=== PATIENT | female | born 1945 | race Caucasian/White ===

== ENCOUNTER 2016-03-12 14:35 | Inpatient (IN) | payer OTHER, MEDICAID, MEDICARE ==
[2016-03-12] VITALS (10 sets, daily range): BP systolic 117–174; BP diastolic 48–91; PULSE 78–88; RESP 20–28; TEMP 96.3–99.7; O2SAT 91–93
[~2016-03-12] VITALS: Ht 160 cm; Wt 71.3 kg
[~2016-03-12 14:35] MED LIST: ALBU8I INH; AMLO10 PO; COMBAER INH; DOXY100T PO; FLUO20TA20 PO; ISOS30 PO; LEVA500T PO; LIPI20TA PO; METO50 PO; NITR0.4S SL; PLAV75TA PO; ST J81CH PO; TEMA15CA PO; XANA0.5T PO
[2016-03-12] MEDS ORDERED: MULT-116 PO (14:58)
[2016-03-12] MEDS ORDERED: AMLO5TAB2 PO (14:58)
[2016-03-12] MEDS ORDERED: ALPR0.5T3 PO (14:58)
[2016-03-12] MEDS ORDERED: OMEP20TA PO (14:58)
[2016-03-12] MEDS ORDERED: CLOP75TA PO (14:58)
[2016-03-12] MEDS ORDERED: VITA500T49 PO (14:58)
[2016-03-12] MEDS ORDERED: ISOS30TA3 PO (14:58)
[2016-03-12] MEDS ORDERED: ATOR1TAB18 PO (14:58)
[2016-03-12] MEDS ORDERED: METO50TA PO (14:58)
[2016-03-12] MEDS ORDERED: methylPREDNISolone SOD SUCC 125 MG/2 ML VIAL IVP ONE (15:15)
[2016-03-12] MEDS ORDERED: SODIUM CHLORIDE 0.9% FLUSH 5 ML FLUSH IVF PRN (15:15)
[2016-03-12] MEDS: RESP: ALBUTEROL 2.5 MG/IPRATROPIUM 0.5 MG NEB (SCH) INH ×2 (15:21→15:22)
--- NOTE | 2016-03-12 15:36 | PD ---
HPI Chief Complaint: Respiratory Symptoms Time Seen by Provider: 14:55 Travel History International Travel<30 days: No Contact w/Intl Traveler<30days: No Traveled to known affect area: No History of Present Illness HPI 70-year-old female complains of shortness of breath. Patient states that she started having shortness of breath for the past month and a half. Patient states that the shortness of breath is worse today. Patient states that she started having coughing congestion with productive cough for the past few days. Patient states that she had fever at home to 100.6. Patient states that she had chest wall pain with coughing. Patient complains of dyspnea on exertion. Patient has history of COPD. Patient is a smoker. Patient has been using nebulizer treatment at home 4 times a day. Patient denies any abdominal pain. Patient denies any nausea vomiting diarrhea. PFSH Past Medical History Hx Anticoagulant Therapy: Yes (Plavix) Arthritis: Yes Asthma: No Blood Disorders: No Anxiety: Yes Depression: No Heart Rhythm Problems: No Cancer: No Cardiac Catheterization: Yes Cardiovascular Problems: Yes ([place] ) High Cholesterol: Yes Chemotherapy: No Chest Pain: Yes Congestive Heart Failure: Yes COPD: Yes Cerebrovascular Accident: No Coronary Artery Disease: Yes Developmental Delay: No Diabetes: No Diminished Hearing: Yes ([place] both ears) Endocrine: No Gastrointestinal Disorders: Yes (LAP BAND) GERD: Yes Genitourinary: No Headaches: No Hepatitis: No Hiatal Hernia: No Hypertension: Yes Immune Disorder: No Implanted Vascular Access Dvce: Yes Kidney Stones: No Musculoskeletal: Yes Neurologic: No Psychiatric: Yes Reproductive: No Respiratory: Yes (COPD) Immunizations Current: Yes Migraines: Yes Myocardial Infarction: Yes ( 2005) Renal Failure: No Seizures: No Sleep Apnea: No Thyroid Disease: No Triglycerides - High: Yes Ulcer: No PNEUMOCCOCAL Vaccine (Year): 3 Menopausal: Yes Past Surgical History Abdominal Surgery: Yes (LAP BAND) AICD: No Appendectomy: Yes Arteriovenous Shunt: No Body Medical Devices: PORT FOR LAP BAND FILLS Cardiac Surgery: Yes (STENTS X 11,) Cholecystectomy: No Coronary Artery Bypass Graft: Yes Coronary Stent: Yes (11 STENTS) Ear Surgery: No Endocrine Surgery: No Eye Surgery: No Genitourinary Surgery: Yes (BLADDER SUSPENSION) Gynecologic Surgery: Yes (HYSTERECTOMY. LUMPECTOMY, ) Hysterectomy: No Insulin Pump: No Joint Replacement: No Neurologic Surgery: No Oral Surgery: No Pacemaker: No Thoracic Surgery: No Other Surgery: Yes (LEFT BREAST LUMPECTOMY) Family History Family Myocardial Infarction: Yes Social History Alcohol Use: No Tobacco Use: Yes (02/27 PPD) Substance Use: No Allergies-Medications (Allergen,Severity, Reaction): Coded Allergies: Lisinopril (Verified Allergy, Severe, Cough, 03/12/16) PERSISTENT COUGH Codeine (Verified Allergy, Mild, NAUSEA, 03/12/16) PATIENT STATES SHE IS NOT ALLERGIC TO MEDICATION Cephalexin (Verified Allergy, Unknown, Nausea/Vomiting, 03/12/16) Flovent (Verified Allergy, Unknown, 03/12/16) THROAT SWELLING Reported Meds & Prescriptions Reported Meds & Active Scripts Active Reported Alprazolam 0.5 Mg Tab 0.5 Mg PO TID PRN Atorvastatin (Atorvastatin Calcium) 80 Mg Tab 80 Mg PO HS Metoprolol Tartrate 50 Mg Tab 50 Mg PO BID Vitamin B12 (Cyanocobalamin) 500 Mcg Tab 1,000 Mcg PO DAILY Amlodipine (Amlodipine Besylate) 5 Mg Tab 5 Mg PO BID Omeprazole 20 Mg Tab 20 Mg PO BID Isosorbide Mononitrate ER (Isosorbide Mononitrate) 30 Mg Liza 30 Mg PO DAILY Eamon Mag Zinc + D3 (Multiple Vitamins W/ Minerals) 1 Tab 1 Tab PO DAILY Clopidogrel (Clopidogrel Bisulfate) 75 Mg Tab 75 Mg PO DAILY Review of Systems General / Constitutional: No: Fever Eyes: No: Visual changes HENT: No: Headaches Cardiovascular: No: Chest Pain or Discomfort Respiratory: Positive: Cough, Shortness of Breath, Wheezing Gastrointestinal: No: Abdominal Pain Genitourinary: No: Dysuria Musculoskeletal: No: Pain Skin: No Rash Neurologic: No: Weakness Psychiatric: No: Depression Endocrine: No: Polydipsia Hematologic/Lymphatic: No: Easy Bruising Physical Exam Narrative GENERAL: Well-nourished, well-developed patient. SKIN: Warm and dry. HEAD: Normocephalic. EYES: No scleral icterus. No injection or drainage. NECK: Supple, trachea midline. No JVD or lymphadenopathy. CARDIOVASCULAR: Regular rate and rhythm without murmurs, gallops, or rubs. RESPIRATORY: Breath sounds equal bilaterally. No accessory muscle use. Patient has decrease in breath sounds bilaterally. Mild expiratory wheezes. Few rhonchi at the bases. GASTROINTESTINAL: Abdomen soft, non-tender, nondistended. MUSCULOSKELETAL: No cyanosis, or edema. BACK: Nontender without obvious deformity. No CVA tenderness. Neurologic exam normal. Data Data Last Documented VS Vital Signs Date Time Temp Pulse Resp B/P Pulse Ox O2 Delivery O2 Flow Rate FiO2 03/12/16 15:41 78 20 117/48 93 03/12/16 15:25 21 03/12/16 14:45 99.7 Orders Complete Blood Count With Diff (03/12/16 15:02) Basic Metabolic Panel (Bmp) (03/12/16 15:02) B-Type Natriuretic Peptide (03/12/16 15:02) Iv Access Insert/Monitor (03/12/16 15:02) Ecg Monitoring (03/12/16 15:02) Oximetry (03/12/16 15:02) Chest, Single Ap (03/12/16 15:02) Sodium Chloride 0.9% Flush (Ns Flush) (03/12/16 15:15) Methylprednisolone So Succ Inj (Solumedr (03/12/16 15:15) Albuterol-Ipratropium Neb (Duoneb Neb) (03/12/16 15:15) Labs Laboratory Tests Test 03/12/16 15:15 White Blood Count 12.7 TH/MM3 Red Blood Count 4.40 MIL/MM3 Hemoglobin 13.7 GM/DL Hematocrit 38.9 % Mean Corpuscular Volume 88.4 FL Mean Corpuscular Hemoglobin 31.1 PG Mean Corpuscular Hemoglobin 35.3 % Concent Red Cell Distribution Width 13.1 % Platelet Count 210 TH/MM3 Mean Platelet Volume 8.6 FL Neutrophils (%) (Auto) 77.3 % Lymphocytes (%) (Auto) 15.3 % Monocytes (%) (Auto) 4.9 % Eosinophils (%) (Auto) 0.8 % Basophils (%) (Auto) 1.7 % Neutrophils # (Auto) 9.9 TH/MM3 Lymphocytes # (Auto) 1.9 TH/MM3 Monocytes # (Auto) 0.6 TH/MM3 Eosinophils # (Auto) 0.1 TH/MM3 Basophils # (Auto) 0.2 TH/MM3 CBC Comment DIFF FINAL Differential Comment Sodium Level 140 MEQ/L Potassium Level 3.9 MEQ/L Chloride Level 104 MEQ/L Carbon Dioxide Level 28.5 MEQ/L Anion Gap 8 MEQ/L Blood Urea Nitrogen 13 MG/DL Creatinine 0.83 MG/DL Estimat Glomerular Filtration 68 ML/MIN Rate Random Glucose 100 MG/DL Calcium Level 8.7 MG/DL [facility] Medical Decision Making Medical Screen Exam Complete: Yes Emergency Medical Condition: Yes Interpretation(s) 1549 PM. X-ray shows early consolidation right base. CBC with WBC 12.7. 77 neutrophil. BMP within normal limit. Differential Diagnosis Differential diagnosis including acute exacerbation COPD, bronchitis, pneumonia , PE, pneumothorax. Narrative Course 70-year-old female with fever, coughing congestion wheezing and shortness of breath. History of COPD. Albuterol with Atrovent unit dose treatment 3. Solu -Medrol 125 mg IV. Levaquin 750 mg IV. Diagnosis Primary Impression: Pneumonia Qualified Code: J18.1 - Pneumonia of right lower lobe due to infectious organism Additional Impression: COPD with acute exacerbation Milo Welsh MD Mar 12, 2016 15:36
[2016-03-12 15:38] LABS: AUTOMATED NEUTROPHIL # 9.9 TH/MM3 (1.8-7.7); BASOPHIL # 0.2 TH/MM3 (0-0.2); BASOPHIL % 1.7 % (0.0-2.0); EOSINOPHIL # 0.1 TH/MM3 (0-0.4); EOSINOPHIL % 0.8 % (0.0-4.0); HEMATOCRIT 38.9 % (35.0-46.0); HEMO FLAGS DIFF FINAL; LYMPH % 15.3 % (9.0-44.0); LYMPHOCYTE # 1.9 TH/MM3 (1.0-4.8); MEAN CELL VOLUME 88.4 FL (80.0-100.0); MEAN CORPUSCULAR HEMOGLOBIN 31.1 PG (27.0-34.0); MEAN CORPUSCULAR HGB CONC 35.3 % (32.0-36.0); MONO % 4.9 % (0.0-8.0); NEUT % 77.3 % (16.0-70.0); PLATELET COUNT 210 TH/MM3 (150-450); RED CELL DISTRIBUTION WIDTH 13.1 % (11.6-17.2); WHITE BLOOD COUNT 12.7 TH/MM3 (4.0-11.0)
--- NOTE | 2016-03-12 15:38 | RADHPO ---
EXAM DATE/TIME: 03/12/2016 15:18 [place] COMPARISON: CHEST SINGLE AP, January 21, 2015, 22:02. INDICATIONS : Short of breath, cough, chest pain MEDICAL HISTORY : Chronic obstructive pulmonary disease. SURGICAL HISTORY : CABG. ENCOUNTER: Initial ACUITY: 2 months PAIN SCORE: 6/10 LOCATION: Bilateral chest FINDINGS: Sternal wires from previous bypass are noted. The heart is enlarged. There is mild interstitial luciano ma present. Minimal alveolar consolidation is present in the right base new since comparison study. There is no pleural effusion. Degenerative change is seen about both shoulders. CONCLUSION: Cardiomegaly with mild interstitial edema. Minimal consolidative changes right base new from the com parison study. Bayron Jimenez MD FACR on March 12, 2016 at 15:22 Board Certified Radiologist. This report was verified electronically.
[2016-03-12 15:40] LABS: POTASSIUM 3.9 MEQ/L (3.5-5.1)
[2016-03-12 15:43] LABS: BICARBONATE 28.5 MEQ/L (21.0-32.0)
[2016-03-12] MEDS ORDERED: LEVOFLOXACIN 750 MG PREMIX INJ 150 ML IV ONE (16:00)
[2016-03-12] MEDS ORDERED: ACETAMINOPHEN 325 MG TAB PO PRN (16:15)
[2016-03-12] MEDS ORDERED: ONDANSETRON HCL 4 MG/2 ML VIAL IV PRN (16:15)
[2016-03-12] MEDS: LEVOFLOXACIN 750 MG PREMIX INJ 150 ML IV SCH (17:24)
[2016-03-12] MEDS ORDERED: ACETAMINOPHEN/HYDROcodone 325 MG/5 MG TAB PO ONE (17:45)
--- NOTE | 2016-03-12 17:52 | HHI.HP ---
[facility] Service [facility] Primary Care Physician Non-Staff Admission Diagnosis pneumonia. Acute exacerbation COPD. Diagnoses: Chief Complaint: Fever Travel History International Travel<30 Days: No Contact w/Intl Traveler <30 Da: No Traveled to Known Affected Are: No History of Present Illness Patient Is a 70 female with COPD and 2 months of Increased work of breathing and Shortness of breath. The PCP had given the patient several doses of antibiotics and bronchodilators without improvement. She has come to the hospital. Says she had a fever at home of 106. She has a mild leukocytosis here. She has had some minor hemoptysis which is associated only with her cough. For these reasons the patient came to the hospital and was recommended for admission. Her symptoms have improved with bronchodilators here Review of Systems Constitutional: DENIES: Diaphoretic episodes, Fatigue, Fever, Weight gain, Weight loss, Chills, Dizziness, Change in appetite, Night Sweats Endocrine: DENIES: Abnorml menstrual pattern, Heat/cold intolerance, Polydipsia , Polyuria, Polyphagia Eyes: DENIES: Blurred vision, Diplopia, Eye inflammation, Eye pain, Vision loss , Photosensitivity, Double Vision Ears, nose, mouth, throat: DENIES: Tinnitus, Hearing loss, Vertigo, Nasal discharge, Oral lesions, Throat pain, Hoarseness, Ear Pain, Running Nose, Epistaxis, Sinus Pain, Toothache, Odynophagia Respiratory: COMPLAINS OF: Cough, Hemoptysis, Sputum production, DENIES: Apneas, Snoring, Wheezing, Shortness of breath Cardiovascular: DENIES: Chest pain, Palpitations, Syncope, Dyspnea on Exertion , PND, Lower Extremity Edema, Orthopnea, Claudication Gastrointestinal: DENIES: Abdominal pain, Black stools, Bloody stools, Constipation, Diarrhea, Nausea, Vomiting, Difficulty Swallowing, Anorexia Genitourinary: DENIES: Abnormal vaginal bleeding, Dysmenorrhea, Dyspareunia, Sexual dysfunction, Urinary frequency, Urinary incontinence, Urgency, Hematuria , Dysuria, Nocturia, Vaginal discharge Musculoskeletal: DENIES: Joint pain, Muscle aches, Stiffness, Joint Swelling, Back pain, Neck pain Integumentary: DENIES: Abnormal pigmentation, Pruritus, Rash, Nail changes, Breast masses, Breast skin changes, Nipple discharge Hematologic/lymphatic: DENIES: Bruising, Lymphadenopathy Immunologic/allergic: DENIES: Eczema, Urticaria Neurologic: DENIES: Abnormal gait, Headache, Localized weakness, Paresthesias, Seizures, Speech Problems, Tremor, Poor Balance Psychiatric: DENIES: Anxiety, Confusion, Mood changes, Depression, Hallucinations, Agitation, Suicidal Ideation, Homicidal Ideation, Delusions Past Family Social History Past Medical History COPD Coronary artery disease Anxiety Chronic pain Past Surgical History Bladder suspension Hysterectomy LAP-BAND Cardiac bypass Cardiac stents Reported Medications Reviewed in the medical record, Allergies: Coded Allergies: Lisinopril (Verified Allergy, Severe, Cough, 03/12/16) PERSISTENT COUGH Codeine (Verified Allergy, Mild, NAUSEA, 03/12/16) PATIENT STATES SHE IS NOT ALLERGIC TO MEDICATION Cephalexin (Verified Allergy, Unknown, Nausea/Vomiting, 03/12/16) Flovent (Verified Allergy, Unknown, 03/12/16) THROAT SWELLING Active Ordered Medications Reviewed in the medical record Family History Mother from constipation of COPD and was on oxygen. at age 78 Social History Lives alone, smokes at least a pack a day, no alcohol dependency Physical Exam Vital Signs Vital Signs Date Time Temp Pulse Resp B/P Pulse Ox O2 Delivery O2 Flow Rate FiO2 03/12/16 17:29 88 20 138/91 91 03/12/16 16:18 88 20 140/53 92 03/12/16 15:41 78 20 117/48 93 03/12/16 15:25 93 21 03/12/16 15:15 93 03/12/16 14:54 93 03/12/16 14:45 99.7 79 28 155/68 93 Physical Exam GENERAL: This is a well-nourished, well-developed patient, in no apparent distress. SKIN: No rashes, ecchymoses or lesions. Cool and dry. HEAD: Atraumatic. Normocephalic. No temporal or scalp tenderness. EYES: Pupils equal round and reactive. Extraocular motions intact. No scleral icterus. No injection or drainage. ENT: Nose without bleeding, purulent drainage or septal hematoma. Throat without erythema, tonsillar hypertrophy or exudate. Uvula midline. Airway patent. NECK: Trachea midline. No JVD or lymphadenopathy. Supple, nontender, no meningeal signs. CARDIOVASCULAR: Regular rate and rhythm without murmurs, gallops, or rubs. RESPIRATORY: Decreased breath sounds bilaterally, basilar congestion GASTROINTESTINAL: Abdomen soft, non-tender, nondistended. No hepato-splenomegaly , or palpable masses. No guarding. MUSCULOSKELETAL: Extremities without clubbing, cyanosis, or edema. No joint tenderness, effusion, or edema noted. No calf tenderness. Negative Homans sign bilaterally. NEUROLOGICAL: Awake and alert. Cranial nerves II through XII intact. Motor and sensory grossly within normal limits. Five out of 5 muscle strength in all muscle groups. Normal speech. Laboratory Laboratory Tests Test 03/12/16 15:15 White Blood Count 12.7 Red Blood Count 4.40 Hemoglobin 13.7 Hematocrit 38.9 Mean Corpuscular Volume 88.4 Mean Corpuscular Hemoglobin 31.1 Mean Corpuscular Hemoglobin 35.3 Concent Red Cell Distribution Width 13.1 Platelet Count 210 Mean Platelet Volume 8.6 Neutrophils (%) (Auto) 77.3 Lymphocytes (%) (Auto) 15.3 Monocytes (%) (Auto) 4.9 Eosinophils (%) (Auto) 0.8 Basophils (%) (Auto) 1.7 Neutrophils # (Auto) 9.9 Lymphocytes # (Auto) 1.9 Monocytes # (Auto) 0.6 Eosinophils # (Auto) 0.1 Basophils # (Auto) 0.2 CBC Comment DIFF FINAL Differential Comment Sodium Level 140 Potassium Level 3.9 Chloride Level 104 Carbon Dioxide Level 28.5 Anion Gap 8 Blood Urea Nitrogen 13 Creatinine 0.83 Estimat Glomerular Filtration 68 Rate Random Glucose 100 Calcium Level 8.7 B-Type Natriuretic Peptide 889 Date/Time Procedure Status Source Growth 03/12/16 16:15 Aerobic Blood Culture Received Blood Peripheral Pending 03/12/16 16:15 Anaerobic Blood Culture Received Blood Peripheral Pending Result Diagram: 03/12/16 1515 03/12/16 1515 Imaging Last Impressions Chest X-Ray 03/12/16 1502 Signed Impressions: Service Date/Time: Saturday, March 12, 2016 15:18 - CONCLUSION: Cardiomegaly with mild interstitial edema. Minimal consolidative changes right base new from the comparison study. Bayron Jimenez MD FACR Assessment and Plan Problem List: (1) COPD with acute exacerbation ICD Code: J44.1 Status: Acute Plan: With possible pneumonia on my review of the chest x-ray will right sided basilar consolidation Continue with bronchodilators, steroids, Levaquin Patient with mild hemoptysis likely due to acute bronchitis We'll follow counts (2) Hypertension, benign ICD Code: I10 Status: Chronic Plan: Controlled on current regimen of metoprolol and amlodipine (3) Headache ICD Code: R51 Status: Acute Plan: Continue with supportive care and pain medication (4) CAD (coronary artery disease) ICD Code: I25.10 Status: Chronic Plan: Patient will continue with metoprolol, isosorbide, Plavix History of cardiac bypass and stent Patient advised to discontinue tobacco Code Status Plan of care to be determined by Hospital course Full code Discussed Condition With HARSHAL Yanes, patient, family Physician Certification 2 Midnight Certification Type: Admission for Inpatient Services Order for Inpatient Services The services are ordered in accordance with Medicare regulations or non- Medicare payer requirements, as applicable. In the case of services not specified as inpatient-only, they are appropriately provided as inpatient services in accordance with the 2-midnight benchmark. Estimated LOS (days): 4 4 days is the estimated time the patient will need to remain in the hospital, assuming treatment plan goals are met and no additional complications. Post-Hospital Plan: Home Florina De La Cruz MD Mar 12, 2016 17:52
[2016-03-12] MEDS: RESP: ALBUTEROL 2.5 MG/IPRATROPIUM 0.5 MG NEB (SCH) NEB (19:45)
[2016-03-12] MEDS ORDERED: RESP: ALBUTEROL 2.5 MG/IPRATROPIUM 0.5 MG NEB (SCH) NEB (20:00)
[2016-03-12] MEDS: ATORVASTATIN 40 MG TAB PO SCH (22:47)
[2016-03-12] MEDS: METOPROLOL TARTRATE 50 MG TAB PO SCH (22:47)
[2016-03-12] MEDS: amLODIPine BESYLATE 5 MG TAB PO SCH (22:47)
[2016-03-12] MEDS: SODIUM CHLORIDE 0.9% FLUSH 5 ML FLUSH IVF SCH (22:47)
[2016-03-12] MEDS: methylPREDNISolone SOD SUCC 40 MG/1 ML VIAL IV PUSH SCH (22:48)
[2016-03-12] MEDS: ALPRAZolam 0.5 MG TAB PO PRN (22:50)
[2016-03-12] MEDS ORDERED: VENTAER INH (23:06)
[2016-03-12] MEDS ORDERED: IPRAAER INH (23:07)
[2016-03-13] VITALS (8 sets, daily range): BP systolic 131–154; BP diastolic 57–76; PULSE 68–91; RESP 16–20; TEMP 96.3–97.9; O2SAT 91–95
[2016-03-13] MEDS: SODIUM CHLORIDE 0.9% FLUSH 5 ML FLUSH IVF PRN ×2 (05:48→15:10)
[2016-03-13] MEDS: ISOSORBIDE MONONITRATE 30 MG TAB PO SCH (05:48)
[2016-03-13] MEDS: methylPREDNISolone SOD SUCC 40 MG/1 ML VIAL IV PUSH SCH ×3 (05:48→21:34)
[2016-03-13] MEDS: RESP: ALBUTEROL 2.5 MG/IPRATROPIUM 0.5 MG NEB (SCH) NEB ×3 (07:37→19:33)
[2016-03-13] MEDS: METOPROLOL TARTRATE 50 MG TAB PO SCH ×2 (09:11→21:33)
[2016-03-13] MEDS: CLOPIDOGREL 75 MG TAB PO SCH (09:12)
[2016-03-13] MEDS: amLODIPine BESYLATE 5 MG TAB PO SCH ×2 (09:12→21:33)
[2016-03-13] MEDS: SODIUM CHLORIDE 0.9% FLUSH 5 ML FLUSH IVF SCH ×2 (09:14→21:34)
[2016-03-13] MEDS: ALPRAZolam 0.5 MG TAB PO PRN ×2 (09:19→21:30)
--- NOTE | 2016-03-13 10:08 | HHI.PR ---
Subjective Remarks Patient seen today in follow-up for COPD exacerbation. No events on telemetry. Patient tearful today as her son had several months ago suddenly. Otherwise she has been coughing with minimal hemoptysis Objective Vitals Vital Signs Date Time Temp Pulse Resp B/P Pulse Ox O2 Delivery O2 Flow Rate FiO2 03/13/16 08:00 96.9 75 20 148/76 91 03/13/16 07:38 93 21 03/13/16 04:00 97.9 68 16 140/61 91 03/13/16 00:00 97.2 84 16 131/57 92 03/12/16 20:03 87 03/12/16 20:00 96.3 85 20 146/73 91 03/12/16 19:45 93 21 03/12/16 18:00 98.2 87 20 174/79 93 03/12/16 17:29 88 20 138/91 91 03/12/16 16:18 88 20 140/53 92 03/12/16 15:41 78 20 117/48 93 03/12/16 15:25 93 21 03/12/16 15:15 93 03/12/16 14:54 93 03/12/16 14:45 99.7 79 28 155/68 93 I/O 03/12/16 03/12/16 03/12/16 03/13/16 03/13/16 03/13/16 07:00 15:00 23:00 07:00 15:00 23:00 Intake Total 180 ml 80 ml Balance 180 ml 80 ml Intake Oral 80 ml IV Total 180 ml 0 ml # Voids 2 # Bowel Movements 0 Result Diagram: 03/12/16 1515 03/12/16 1515 Imaging Last Impressions Chest X-Ray 03/12/16 1502 Signed Impressions: Service Date/Time: Saturday, March 12, 2016 15:18 - CONCLUSION: Cardiomegaly with mild interstitial edema. Minimal consolidative changes right base new from the comparison study. Bayron iJmenez MD FACR Objective Remarks GENERAL: This is a well-nourished, well-developed patient, in no apparent distress. CARDIOVASCULAR: Regular rate and rhythm without murmurs, gallops, or rubs. RESPIRATORY: Bilateral coarse rhonchi with scattered wheezes GASTROINTESTINAL: Abdomen soft, non-tender, nondistended. Normal active bowel sounds MUSCULOSKELETAL: Extremities without clubbing, cyanosis, or edema. NEURO: Alert & Oriented x4 to person, place, time, situation. Moves all ext x4 A/P Problem List: (1) COPD with acute exacerbation ICD Code: J44.1 Status: Acute Plan: With possible pneumonia on my review of the chest x-ray will right sided basilar consolidation Continue with bronchodilators, steroids, Levaquin Patient with mild hemoptysis likely due to acute bronchitis We'll follow counts Cont O2 for hypoxemia check flu/sputum (2) Hypertension, benign ICD Code: I10 Status: Chronic Plan: Controlled on current regimen of metoprolol and amlodipine (3) Headache ICD Code: R51 Status: Acute Plan: Continue with supportive care and pain medication (4) CAD (coronary artery disease) ICD Code: I25.10 Status: Chronic Plan: Patient will continue with metoprolol, isosorbide, Plavix History of cardiac bypass and stent Patient advised to discontinue tobacco echo pending Discharge Planning 2-3 days home Florina De La Cruz MD Mar 13, 2016 10:08
[2016-03-13] MEDS: ACETAMINOPHEN/HYDROcodone 325 MG/5 MG TAB PO PRN ×2 (15:09→21:31)
[2016-03-13] MEDS: LEVOFLOXACIN 750 MG PREMIX INJ 150 ML IV SCH (17:06)
[2016-03-13] MEDS: ATORVASTATIN 40 MG TAB PO SCH (21:34)
[2016-03-14] VITALS: BP 147/62; PULSE 76; RESP 20; TEMP 96.9; O2SAT 92
[2016-03-14 04:00] VITALS: BP 142/63; PULSE 64; RESP 20; TEMP 97.6; O2SAT 92
[2016-03-14] MEDS: methylPREDNISolone SOD SUCC 40 MG/1 ML VIAL IV PUSH SCH (05:28)
[2016-03-14] MEDS: SODIUM CHLORIDE 0.9% FLUSH 5 ML FLUSH IVF PRN (05:28)
[2016-03-14] MEDS: ISOSORBIDE MONONITRATE 30 MG TAB PO SCH (05:29)
[2016-03-14 06:11] LABS: BASOPHIL % 0.2 % (0.0-2.0); LYMPH % 6.5 % (9.0-44.0); LYMPHOCYTE # 0.9 TH/MM3 (1.0-4.8); MEAN CELL VOLUME 89.8 FL (80.0-100.0); MEAN CORPUSCULAR HEMOGLOBIN 30.2 PG (27.0-34.0); MEAN CORPUSCULAR HGB CONC 33.7 % (32.0-36.0); MONO % 2.1 % (0.0-8.0); NEUT % 91.2 % (16.0-70.0); PLATELET COUNT 205 TH/MM3 (150-450); RED BLOOD COUNT 4.35 MIL/MM3 (4.00-5.30); RED CELL DISTRIBUTION WIDTH 13.5 % (11.6-17.2); WHITE BLOOD COUNT 14.2 TH/MM3 (4.0-11.0)
[2016-03-14 06:15] LABS: HEMO FLAGS DIFF FINAL
[2016-03-14] MEDS: RESP: ALBUTEROL 2.5 MG/IPRATROPIUM 0.5 MG NEB (SCH) NEB (07:07)
[2016-03-14 07:09] VITALS: O2SAT 92
[2016-03-14] MEDS: METOPROLOL TARTRATE 50 MG TAB PO SCH (08:35)
[2016-03-14] MEDS: amLODIPine BESYLATE 5 MG TAB PO SCH (08:35)
[2016-03-14] MEDS: CLOPIDOGREL 75 MG TAB PO SCH (08:35)
[2016-03-14] MEDS: SODIUM CHLORIDE 0.9% FLUSH 5 ML FLUSH IVF SCH (08:36)
[2016-03-14] MEDS: ALPRAZolam 0.5 MG TAB PO PRN (08:39)
[2016-03-14] MEDS: ACETAMINOPHEN/HYDROcodone 325 MG/5 MG TAB PO PRN (08:40)
[2016-03-14 09:46] VITALS: RESP 18
[2016-03-14] MEDS ORDERED: PRED10PA PO (10:36)
[2016-03-14] MEDS ORDERED: LEVA750T PO (10:36)
--- NOTE | 2016-03-14 10:36 | HHI.DCPOC ---
Discharge Care Plan Diagnosis: (1) COPD with acute exacerbation Goals to Promote Your Health * To prevent worsening of your condition and complications * To maintain your health at the optimal level Directions to Meet Your Goals Take your medications as prescribed Follow your dietary instruction Follow activity as directed Keep your appointments as scheduled Take your immunizations and boosters as scheduled If your symptoms worsen call your PCP, if no PCP go to Urgent Care Center or Emergency Room Smoking is Dangerous to Your Health. Avoid second hand smoke Call the 24-hour hour crisis hotline for domestic abuse at Florina De La Cruz MD Mar 14, 2016 10:36
--- NOTE | 2016-03-14 10:39 | HHI.DS ---
Discharge Summary Admission Date Mar 12, 2016 at 16:23 Discharge Date: Mar 14, 2016 Admitting Diagnosis pneumonia. Acute exacerbation COPD. (1) COPD with acute exacerbation ICD Code: J44.1 (2) Hypertension, benign ICD Code: I10 (3) Headache ICD Code: R51 (4) CAD (coronary artery disease) ICD Code: I25.10 Procedures none Brief History - From Admission Patient Is a 70 female with COPD and 2 months of Increased work of breathing and Shortness of breath. The PCP had given the patient several doses of antibiotics and bronchodilators without improvement. She has come to the hospital. Says she had a fever at home of 106. She has a mild leukocytosis here. She has had some minor hemoptysis which is associated only with her cough. For these reasons the patient came to the hospital and was recommended for admission. Her symptoms have improved with bronchodilators here CBC/BMP: 03/14/16 0511 03/12/16 1515 Significant Findings Laboratory Tests Test 03/12/16 03/14/16 15:15 05:11 White Blood Count 12.7 TH/MM3 14.2 TH/MM3 (4.0-11.0) (4.0-11.0) Neutrophils (%) (Auto) 77.3 % 91.2 % (16.0-70.0) (16.0-70.0) Neutrophils # (Auto) 9.9 TH/MM3 13.0 TH/MM3 (1.8-7.7) (1.8-7.7) Estimat Glomerular Filtration 68 ML/MIN (>89) Rate B-Type Natriuretic Peptide 889 PG/ML (0-100) Lymphocytes (%) (Auto) 6.5 % (9.0-44.0) Lymphocytes # (Auto) 0.9 TH/MM3 (1.0-4.8) Imaging Last Impressions Chest X-Ray 03/12/16 1502 Signed Impressions: Service Date/Time: Saturday, March 12, 2016 15:18 - CONCLUSION: Cardiomegaly with mild interstitial edema. Minimal consolidative changes right base new from the comparison study. Bayron Jimenez MD FACR PE at Discharge GENERAL: This is a well-nourished, well-developed patient, in no apparent distress. CARDIOVASCULAR: Regular rate and rhythm without murmurs, gallops, or rubs. RESPIRATORY: Bilateral coarse rhonchi with scattered wheezes GASTROINTESTINAL: Abdomen soft, non-tender, nondistended. Normal active bowel sounds MUSCULOSKELETAL: Extremities without clubbing, cyanosis, or edema. NEURO: Alert & Oriented x4 to person, place, time, situation. Moves all ext x4 Pt update on day of discharge Seen today in follow-up for COPD exacerbation. Doing well off oxygen. No new complaints. Discharge plans discussed with patient Hospital Course Patient is a 70-year-old female was admitted with COPD exacerbation . Patient did well with Patient will bronchodilators and oxygen steroids. She continued to improve. She was advised to discontinue tobacco and was discharged home Pt Condition on Discharge: Good Discharge Disposition: Discharge Home Discharge Time: > 30 minutes Discharge Instructions DIET: Follow Instructions for: As Tolerated, No Restrictions Activities you can perform: Regular-No Restrictions Follow up Referrals: PCP Follow-up - 1 Week New Medications: Levofloxacin (Levaquin) 750 Mg Tab 750 MG PO DAILY Infection #5 Ref 0 TAB Prednisone (21) 10 mg tab Dose Pack (Prednisone (21) 10 mg tab Dose Pack) 10 Mg Pack 10 MG PO DIRECTED Inflammation #1 Ref 0 DSPK Continued Medications: Albuterol 18 GM Inh (Ventolin Hfa 18 GM Inh) 90 Mcg/Act Aer 2 PUFF INH Q4-6H PRN SHORTNESS OF BREATH #1 Ref 0 INHALER Alprazolam (Alprazolam) 0.5 Mg Tab 0.5 MG PO TID PRN ANXIETY Ref 0 TAB Amlodipine (Amlodipine) 5 Mg Tab 5 MG PO BID Blood Pressure Management #30 Ref 0 TAB Atorvastatin (Atorvastatin) 80 Mg Tab 80 MG PO HS Cholesterol Management #30 Ref 0 TAB Clopidogrel (Clopidogrel) 75 Mg Tab 75 MG PO DAILY Blood Clot Prevention #30 Ref 0 TAB Cyanocobalamin (Vitamin B12) 500 Mcg Tab 1000 MCG PO DAILY #1 BOTTLE Ipratropium-Albuterol Inh (Combivent Respimat Inh) 20-100 Care Home/Act Aero 1 PUFF INH BID Broncospasm #1 Ref 0 INHALER Isosorbide Mononitrate ER (Isosorbide Mononitrate ER) 30 Mg Liza 30 MG PO DAILY Prevent Chest Pain #30 Ref 0 TAB Metoprolol Tartrate (Metoprolol Tartrate) 50 Mg Tab 50 MG PO BID #60 Ref 0 TAB Multiple Vitamins W/ Minerals (Eamon Mag Zinc + D3) 1 Tab 1 TAB PO DAILY Nutritional Supplement Ref 0 TAB Omeprazole (Omeprazole) 20 Mg Tab 20 MG PO BID #30 Ref 0 TAB Florina De La Cruz MD Mar 14, 2016 10:39
[2016-03-14] MEDS ORDERED: ZOFR4TAB3 SL (11:20)
--- NOTE | 2016-03-14 21:01 | EC ---
Study Study Date:03/14/2016 STUDY CONCLUSIONS SUMMARY - Left ventricle: The cavity size was normal. Wall thickness was normal. Systolic function was mildly reduced. The estimated ejection fraction was in the range of 45% to 50%. Wall motion was normal; there were no regional wall motion abnormalities. - Mitral valve: Mild regurgitation. - Tricuspid valve: Mild regurgitation. - Pulmonary arteries: PA peak pressure: 35mm Hg (S). If LV function is below 40, please consider prescribing an ACEI or ARB or document rationale for non-use. PROCEDURE DATA STUDY STATUS: Elective. Procedure: Transthoracic echocardiography. Image quality was good. Scanning was performed from the parasternal, apical, and subcostal acoustic windows. Study completion: The patient tolerated the procedure well. Transthoracic echocardiography. M-mode, complete 2D, complete spectral Doppler, and color Doppler. Patient status: Inpatient. CARDIAC ANATOMY LEFT VENTRICLE: The cavity size was normal. Wall thickness was normal. Systolic function was mildly reduced. The estimated ejection fraction was in the range of 45% to 50%. Wall motion was normal; there were no regional wall motion abnormalities. AORTIC VALVE: Trileaflet; normal thickness leaflets. Doppler: Transvalvular velocity was within the normal range. There was no stenosis. No regurgitation. AORTA: Aortic root: The aortic root was normal in size. MITRAL VALVE: Structurally normal valve. Doppler: Transvalvular velocity was within the normal range. There was no evidence for stenosis. Mild regurgitation. LEFT ATRIUM: The atrium was normal in size. RIGHT VENTRICLE: The cavity size was normal. Wall thickness was normal. PULMONIC VALVE: Doppler: Transvalvular velocity was within the normal range. There was no evidence for stenosis. No regurgitation. TRICUSPID VALVE: Structurally normal valve. Doppler: Transvalvular velocity was within the normal range. Mild regurgitation. PULMONARY ARTERY: The main pulmonary artery was normal-sized. Systolic pressure was within the normal range. RIGHT ATRIUM: The atrium was normal in size. PERICARDIUM: There was no pericardial effusion. SYSTEMIC VEINS: Inferior vena cava: The vessel was normal in size. BASIC MEASUREMENTS ADULT Normal Left ventricle LV internal dimension, ED, chordal level, *54.1 mm 43-52 PLAX LV internal dimension, ES, chordal level, *43 mm 23-38 PLAX Fractional shortening, chordal level, PLAX *21 % >29 LV posterior wall thickness, ED 11.1 mm IVS/LVPW ratio, ED 1.1 <1.3 Ventricular septum Septal thickness, ED 12.2 mm Aortic valve Leaflet separation 18 mm 15-26 Right ventricle RV internal dimension, ED, PLAX 33.3 mm 19-38 BASIC MEASUREMENTS ADULT Normal Aortic valve Leaflet separation 18 mm 15-26 Aorta Root diameter, ED 31 mm 20-37 Left atrium Anterior-posterior dimension, ES 38 mm 19-40 LA/aortic root ratio 1.23 DOPPLER MEASUREMENTS ADULT Normal Main pulmonary artery Pressure, S *35 mm Hg =30 Tricuspid valve Regurgitant peak velocity 252 cm/s Peak RV-RA gradient, S 25 mm Hg Maximal regurgitant velocity 252 cm/s Systemic veins Estimated CVP 10 mm Hg Right ventricle RV pressure, S *35 mm Hg <30 LEGEND: Mean values are shown as u=mean value. Asterisk (*) nieves values outside specified normal range. Prepared and signed by Arya Pastrana [id number]
== END 2016-03-14 12:00 | disposition home or self-care (01) | DRG 192 ==
LOC: PHED 14:35 → PHEDA 16:23 → PH3A 17:50
PROVIDERS: ADMIT Hospitalist; ATTEND Hospitalist
DX: J44.1 Chronic obstructive pulmonary disease with (acute) exacerbation (principal); I50.9 Heart failure, unspecified; F17.210 Nicotine dependence, cigarettes, uncomplicated; J20.9 Acute bronchitis, unspecified; R09.02 Hypoxemia; E78.00 Pure hypercholesterolemia, unspecified; F41.9 Anxiety disorder, unspecified; M19.90 Unspecified osteoarthritis, unspecified site; I25.2 Old myocardial infarction; I25.10 Atherosclerotic heart disease of native coronary artery without angina pectoris; H91.93 Unspecified hearing loss, bilateral; K21.9 Gastro-esophageal reflux disease without esophagitis; I10 Essential (primary) hypertension; G43.909 Migraine, unspecified, not intractable, without status migrainosus; Z95.1 Presence of aortocoronary bypass graft; Z95.5 Presence of coronary angioplasty implant and graft; G89.29 Other chronic pain; Z98.84 Bariatric surgery status
CPT/HCPCS: 71010; 80048; 83880; 85025; 87040; 87804; 93306; 94640; 94664; 96374; J1956; J2405; J2920; J2930

== ENCOUNTER 2016-03-27 14:47 | Observation (INO) | payer OTHER, MEDICAID ==
[~2016-03-27] VITALS: Ht 160 cm; Wt 71.0 kg
[2016-03-27] VITALS (10 sets, daily range): BP systolic 125–177; BP diastolic 53–79; PULSE 80–89; RESP 17–32; TEMP 98.2; O2SAT 92–100
[~2016-03-27 14:47] MED LIST changes: -ALBU8I INH; +ALPR0.5T3 PO; -AMLO10 PO; +AMLO5TAB2 PO; +ATOR1TAB18 PO; +CLOP75TA PO; -COMBAER INH; -DOXY100T PO; -FLUO20TA20 PO; +IPRAAER INH; -ISOS30 PO; +ISOS30TA3 PO; -LEVA500T PO; +LEVA750T PO; -LIPI20TA PO; -METO50 PO; +METO50TA PO; +MULT-116 PO; -NITR0.4S SL; +OMEP20TA PO; -PLAV75TA PO; +PRED10PA PO; -ST J81CH PO; -TEMA15CA PO; +VENTAER INH; +VITA500T49 PO; -XANA0.5T PO; +ZOFR4TAB3 SL
[2016-03-27] MEDS ORDERED: predniSONE 20 MG TAB PO ONE (15:15)
[2016-03-27] MEDS ORDERED: SODIUM CHLORIDE 0.9% FLUSH 5 ML FLUSH IVF PRN ×2 (15:15→18:30)
[2016-03-27] MEDS ORDERED: BENZONATATE 100 MG CAP PO ONE (15:15)
[2016-03-27] MEDS: RESP: ALBUTEROL 2.5 MG/IPRATROPIUM 0.5 MG NEB (SCH) INH ×4 (15:19→23:24)
--- NOTE | 2016-03-27 15:36 | RADHPO ---
EXAM DATE/TIME: 03/27/2016 15:28 [facility] COMPARISON: CHEST SINGLE AP, March 12, 2016, 15:18. INDICATIONS: Short of breath MEDICAL HISTORY: Chronic obstructive pulmonary disease. SURGICAL HISTORY: None. ENCOUNTER: Initial ACUITY: 1 day PAIN SCORE: 5/10 LOCATION: Bilateral chest FINDINGS: Sternal wires from previous biopsy are noted. Heart is minimally enlarged. Pulmonary vascularity is normal. There is no alveolar consolidation, pleural effusion or pneumothorax. Portion of bony skele ton visualized unremarkable. CONCLUSION: Mild compensated cardiomegaly. Bayron Jimenez MD FACR on March 27, 2016 at 15:33 Board Certified Radiologist. This report was verified electronically.
[2016-03-27 15:38] LABS: AUTOMATED NEUTROPHIL # 6.4 TH/MM3 (1.8-7.7); BASOPHIL # 0.1 TH/MM3 (0-0.2); BASOPHIL % 0.6 % (0.0-2.0); EOSINOPHIL # 0.2 TH/MM3 (0-0.4); EOSINOPHIL % 2.7 % (0.0-4.0); HEMATOCRIT 42.6 % (35.0-46.0); HEMO FLAGS DIFF FINAL; LYMPH % 20.6 % (9.0-44.0); LYMPHOCYTE # 1.8 TH/MM3 (1.0-4.8); MEAN CELL VOLUME 89.6 FL (80.0-100.0); MEAN CORPUSCULAR HEMOGLOBIN 29.3 PG (27.0-34.0); MEAN CORPUSCULAR HGB CONC 32.7 % (32.0-36.0); MONO % 4.5 % (0.0-8.0); NEUT % 71.6 % (16.0-70.0); PLATELET COUNT 252 TH/MM3 (150-450); RED BLOOD COUNT 4.76 MIL/MM3 (4.00-5.30); RED CELL DISTRIBUTION WIDTH 13.8 % (11.6-17.2); WHITE BLOOD COUNT 8.9 TH/MM3 (4.0-11.0)
[2016-03-27 15:44] LABS: CHLORIDE 105 MEQ/L (98-107); POTASSIUM 3.8 MEQ/L (3.5-5.1); SODIUM (NA) 143 MEQ/L (136-145)
[2016-03-27 15:47] LABS: ANION GAP 6 MEQ/L (5-15); BICARBONATE 31.6 MEQ/L (21.0-32.0)
[2016-03-27 15:48] LABS: BLOOD UREA NITROGEN 12 MG/DL (7-18)
[2016-03-27 15:50] LABS: ALT (GPT) 15 U/L (10-53)
[2016-03-27 15:51] LABS: AST (GOT) 8 U/L (15-37); GLOMERULAR FILTRATION RATE 67 ML/MIN (>89)
[2016-03-27 15:52] LABS: TOTAL BILIRUBIN ADULT 0.4 MG/DL (0.2-1.0)
[2016-03-27 15:53] LABS: ALKALINE PHOSPHATASE 94 U/L (45-117)
--- NOTE | 2016-03-27 16:40 | PD ---
HPI Chief Complaint: Respiratory Symptoms Time Seen by Provider: 14:55 Travel History International Travel<30 days: No Contact w/Intl Traveler<30days: No Traveled to known affect area: No History of Present Illness HPI Patient 70-year-old female presents emergency primary for repeat evaluation of shortness of breath and cough that she's been having for the past 3 months. Patient states she's, follow with her primary care physician as well as this emergency room multiple times in place, antibiotics multiple times as well as admitted once earlier this month. Patient states that she spent 2 days in the hospital was placed on IV antibiotics and ultimately discharged for a pneumonia earlier this month. She also had a stress test that time with an EF of 45-50%. Patient denies any chest pain. She states she's been having a dry nagging cough. States she's not had a cigarettes in 2 weeks because of the dry cough. Denies any fevers denies any sputum production or blood production. PFSH Past Medical History Hx Anticoagulant Therapy: Yes (Plavix) Arthritis: Yes Asthma: No Blood Disorders: No Anxiety: Yes Depression: Yes (LOST SON 3 WEEKS AGO. STATES SHE IS MEDICATING HERSELF WITH XANEX) Heart Rhythm Problems: No Cancer: Yes (CURRENT POSSIBLE CONCERN ) Cardiac Catheterization: Yes Cardiovascular Problems: Yes ([place] ) High Cholesterol: Yes Chemotherapy: No Chest Pain: Yes Congestive Heart Failure: No (NOT SURE) COPD: Yes Cerebrovascular Accident: No Coronary Artery Disease: Yes Developmental Delay: No Diabetes: No Diminished Hearing: Yes ([place] both ears) Endocrine: No Gastrointestinal Disorders: Yes (LAP BAND) GERD: Yes Genitourinary: Yes Headaches: Yes Hepatitis: No Hiatal Hernia: No Hypertension: Yes Immune Disorder: No Implanted Vascular Access Dvce: Yes Kidney Stones: No Musculoskeletal: Yes Neurologic: Yes Psychiatric: Yes Reproductive: No Respiratory: Yes (COPD) Immunizations Current: Yes Migraines: No Myocardial Infarction: Yes ( 2005) Renal Failure: No Seizures: No Sleep Apnea: No Thyroid Disease: No Triglycerides - High: Yes Ulcer: No Tetanus Vaccination: < 5 Years Influenza Vaccination: Yes PNEUMOCCOCAL Vaccine (Year): 3 ?: Not Menopausal: Yes Past Surgical History Abdominal Surgery: Yes (LAP BAND) AICD: No Appendectomy: Yes Arteriovenous Shunt: No Body Medical Devices: PORT FOR LAP BAND FILLS Cardiac Surgery: Yes (STENTS X 11,) Cholecystectomy: No Coronary Artery Bypass Graft: Yes Coronary Stent: Yes (11 STENTS) Ear Surgery: No Endocrine Surgery: No Eye Surgery: Yes (CATARACT) Genitourinary Surgery: Yes (BLADDER SUSPENSION) Gynecologic Surgery: Yes (HYSTERECTOMY. LUMPECTOMY, ) Hysterectomy: No Insulin Pump: No Joint Replacement: No Neurologic Surgery: No Oral Surgery: No Pacemaker: No Thoracic Surgery: No Other Surgery: Yes (LEFT BREAST LUMPECTOMY) Family History Family Myocardial Infarction: Yes Social History Alcohol Use: No Tobacco Use: No (QUIT 02/2016) Substance Use: No Allergies-Medications (Allergen,Severity, Reaction): Coded Allergies: Lisinopril (Verified Allergy, Severe, Cough, 03/27/16) PERSISTENT COUGH Codeine (Verified Allergy, Mild, NAUSEA, 03/27/16) PATIENT STATES SHE IS NOT ALLERGIC TO MEDICATION Cephalexin (Verified Allergy, Unknown, Nausea/Vomiting, 03/27/16) Flovent (Verified Allergy, Unknown, 03/27/16) THROAT SWELLING Reported Meds & Prescriptions Reported Meds & Active Scripts Active Reported Combivent Respimat Inh (Ipratropium-Albuterol Inh) 20-100 Care Home/Act Aero 1 Puff INH BID Ventolin Hfa 18 GM Inh (Albuterol Sulfate) 90 Mcg/Act Aer 2 Puff INH Q4-6H PRN Alprazolam 0.5 Mg Tab 0.5 Mg PO TID PRN Atorvastatin (Atorvastatin Calcium) 80 Mg Tab 80 Mg PO HS Metoprolol Tartrate 50 Mg Tab 50 Mg PO BID Vitamin B12 (Cyanocobalamin) 500 Mcg Tab 1,000 Mcg PO DAILY Amlodipine (Amlodipine Besylate) 5 Mg Tab 5 Mg PO BID Omeprazole 20 Mg Tab 20 Mg PO BID Isosorbide Mononitrate ER (Isosorbide Mononitrate) 30 Mg Liza 30 Mg PO DAILY Eamon Mag Zinc + D3 (Multiple Vitamins W/ Minerals) 1 Tab 1 Tab PO DAILY Clopidogrel (Clopidogrel Bisulfate) 75 Mg Tab 75 Mg PO DAILY Review of Systems Except as stated in HPI: all other systems reviewed are Neg Physical Exam Narrative GENERAL: Well-developed well-nourished in tripod position, recurrent dry cough. SKIN: Warm and dry. HEAD: Atraumatic. Normocephalic. EYES: Pupils equal and round. No scleral icterus. No injection or drainage. ENT: No nasal bleeding or discharge. Mucous membranes pink and moist. NECK: Trachea midline. No JVD. CARDIOVASCULAR: Regular rate and rhythm. No murmur appreciated. RESPIRATORY: Tachypnea, intercostal retractions, there are wheezes and rhonchi throughout all lung manuel. Good air entry. GASTROINTESTINAL: Abdomen soft, non-tender, nondistended. Hepatic and splenic margins not palpable. MUSCULOSKELETAL: No obvious deformities. No clubbing. No cyanosis. No edema. NEUROLOGICAL: Awake and alert. No obvious cranial nerve deficits. Motor grossly within normal limits. Normal speech. PSYCHIATRIC: Appropriate mood and affect; insight and judgment normal. Data Data Last Documented VS Vital Signs Date Time Temp Pulse Resp B/P Pulse Ox O2 Delivery O2 Flow Rate FiO2 03/27/16 17:59 89 22 154/60 92 Room Air 03/27/16 16:14 2 03/27/16 14:59 98.2 Orders Electrocardiogram (03/27/16 15:08) Complete Blood Count With Diff (03/27/16 15:08) Comprehensive Metabolic Panel (03/27/16 15:08) Chest, Single Ap (03/27/16 15:08) Ecg Monitoring (03/27/16 15:08) Iv Access Insert/Monitor (03/27/16 15:08) Oximetry (03/27/16 15:08) Oxygen Administration (03/27/16 15:08) Prednisone (Deltasone) (03/27/16 15:15) Albuterol-Ipratropium Neb (Duoneb Neb) (03/27/16 15:15) Sodium Chloride 0.9% Flush (Ns Flush) (03/27/16 15:15) Benzonatate (Tessalon) (03/27/16 15:15) Electrocardiogram (03/27/16 ) Resp Home Oxygen Walk Test (03/27/16 ) Albuterol-Ipratropium Neb (Duoneb Neb) (03/27/16 16:45) Acetaminophen (Tylenol) (03/27/16 18:15) Blood Gas Venous (Vbg) (03/27/16 18:13) Admit Order (Ed Use Only) (03/27/16 ) Place In Observation (03/27/16 ) Vital Signs (Adult) Q4H (03/27/16 18:17) Activity Oob Ad Kay (03/27/16 ) Diet Regular Basic (03/27/16 Dinner) Sodium Chloride 0.9% Flush (Ns Flush) (03/27/16 21:00) Sodium Chloride 0.9% Flush (Ns Flush) (03/27/16 18:30) Albuterol-Ipratropium Neb (Duoneb Neb) (03/27/16 20:00) Albuterol Neb (Albuterol Neb) (03/27/16 18:30) Resp Oxygen Zackery C Titrat 1-4 L (03/27/16 ) Prednisone (Deltasone) (03/27/16 21:00) Labs Laboratory Tests Test 03/27/16 15:23 White Blood Count 8.9 TH/MM3 Red Blood Count 4.76 MIL/MM3 Hemoglobin 13.9 GM/DL Hematocrit 42.6 % Mean Corpuscular Volume 89.6 FL Mean Corpuscular Hemoglobin 29.3 PG Mean Corpuscular Hemoglobin 32.7 % Concent Red Cell Distribution Width 13.8 % Platelet Count 252 TH/MM3 Mean Platelet Volume 8.9 FL Neutrophils (%) (Auto) 71.6 % Lymphocytes (%) (Auto) 20.6 % Monocytes (%) (Auto) 4.5 % Eosinophils (%) (Auto) 2.7 % Basophils (%) (Auto) 0.6 % Neutrophils # (Auto) 6.4 TH/MM3 Lymphocytes # (Auto) 1.8 TH/MM3 Monocytes # (Auto) 0.4 TH/MM3 Eosinophils # (Auto) 0.2 TH/MM3 Basophils # (Auto) 0.1 TH/MM3 CBC Comment DIFF FINAL Differential Comment Sodium Level 143 MEQ/L Potassium Level 3.8 MEQ/L Chloride Level 105 MEQ/L Carbon Dioxide Level 31.6 MEQ/L Anion Gap 6 MEQ/L Blood Urea Nitrogen 12 MG/DL Creatinine 0.84 MG/DL Estimat Glomerular Filtration 67 ML/MIN Rate Random Glucose 97 MG/DL Calcium Level 8.8 MG/DL Total Bilirubin 0.4 MG/DL Aspartate Amino Transf 8 U/L (AST/SGOT) Alanine Aminotransferase 15 U/L (ALT/SGPT) Alkaline Phosphatase 94 U/L Total Protein 7.1 GM/DL Albumin 3.5 GM/DL [facility] Medical Decision Making Medical Screen Exam Complete: Yes Emergency Medical Condition: Yes Differential Diagnosis COPD exacerbation, pneumonia, chronic bronchitis, acute bronchitis. Narrative Course Patient was roomed in the emergency department, she was given 3 duo nebs and Tessalon and began to show some improvement. Chest x-ray negative, labs are reassuring. Patient was ambulated in the emergency department and low saturation was 93% on room air. She did however remained significantly tachycardic on this walking in the respiratory rate of high 30s to low 40s which is resolving when the patient relaxes back in the stretcher. She was given an additional 3 duo nebs. She is also given steroids by mouth. Discussed with the patient that my concern is given that her symptoms have been going on for nearly 3 months this may be chronic bronchitis and emphysema rather than an acute bronchitis. Still she and her daughter are quite concerned over her clinical condition and would like to be admitted to the hospital for further workup. I discussed with them this would likely be an observation only but I think is an appropriate status. Patient was discussed with Dr. Florina De La Cruz who will admit to the hospital. Diagnosis Primary Impression: COPD with acute exacerbation Admitting Information Admitting Physician Requests: Observation Condition: Stable Greg Huerta MD Mar 27, 2016 16:40
[2016-03-27] MEDS ORDERED: RESP: ALBUTEROL 2.5 MG/IPRATROPIUM 0.5 MG NEB (SCH) NEB ONE (16:45)
[2016-03-27] MEDS ORDERED: ACETAMINOPHEN 325 MG TAB PO ONE (18:15)
[2016-03-27] MEDS ORDERED: RESP: ALBUTEROL 2.5 MG/3 ML NEB (PRN) INH (18:30)
[2016-03-27 18:37] LABS: BLOOD GAS VENOUS BASE EXCESS 3.7 mmol/L (-2-2); BLOOD GAS VENOUS HCO3 28 mmol/L (22-26); BLOOD GAS VENOUS O2 HGB SAT 60 % (70-76); BLOOD GAS VENOUS PCO2 48 mmHg (44-48); BLOOD GAS VENOUS PO2 36 mmHg (35-40); BLOOD GAS VENOUS pH 7.39 (7.360-7.400); CRITICAL VALUE NO; TEMP CORR TO 98.6
[2016-03-27 18:38] LABS: DRAW SITE IV; FIO2 21 %; OXYGEN DEVICE ROOM AIR; STAT NO
[2016-03-27] MEDS: MORPHINE SULFATE 4 MG/ML INJ IV PUSH PRN (21:15)
[2016-03-27] MEDS: predniSONE 20 MG TAB PO SCH (21:42)
[2016-03-27] MEDS: SODIUM CHLORIDE 0.9% FLUSH 5 ML FLUSH IVF SCH (21:43)
[2016-03-28] VITALS: BP 154/76; PULSE 88; RESP 20; TEMP 97.8; O2SAT 96
[2016-03-28] MEDS: MORPHINE SULFATE 4 MG/ML INJ IV PUSH PRN (01:32)
[2016-03-28] MEDS: RESP: ALBUTEROL 2.5 MG/IPRATROPIUM 0.5 MG NEB (SCH) INH ×4 (03:11→15:44)
[2016-03-28 04:00] VITALS: BP 146/64; PULSE 90; RESP 16; TEMP 96.2; O2SAT 96
[2016-03-28 07:59] VITALS: O2SAT 95
[2016-03-28 08:18] VITALS: BP 149/76; PULSE 90; RESP 18; TEMP 96.8; O2SAT 94
[2016-03-28] MEDS: predniSONE 20 MG TAB PO SCH (08:44)
[2016-03-28] MEDS: SODIUM CHLORIDE 0.9% FLUSH 5 ML FLUSH IVF SCH (08:46)
[2016-03-28] MEDS ORDERED: ALPRAZolam 0.5 MG TAB PO PRN (09:00)
[2016-03-28] MEDS ORDERED: PANTOPRAZOLE SOD 20 MG DELAYED RELEASE TAB PO SCH (09:00)
[2016-03-28] MEDS ORDERED: amLODIPine BESYLATE 5 MG TAB PO SCH (09:00)
[2016-03-28] MEDS ORDERED: METOPROLOL TARTRATE 50 MG TAB PO SCH (09:00)
[2016-03-28] MEDS ORDERED: ISOSORBIDE MONONITRATE 30 MG TAB PO SCH (09:00)
[2016-03-28] MEDS ORDERED: CLOPIDOGREL 75 MG TAB PO SCH (09:00)
[2016-03-28 12:34] VITALS: BP 154/66; PULSE 86; RESP 18; TEMP 96.2; O2SAT 96
--- NOTE | 2016-03-28 13:43 | EKG ---
Date Performed: 03/27/2016 Time Performed: 15:50:24 PTAGE: 70 years EKG: Pacer detection suspended due to external noise-REVIEW ADVISED Sinus rhythm with aberrantly conducted supraventricular complexes Inferior infarct - age undetermined Lateral ST changes may be due to myocardial ischemia Abnormal ECG Since PREVIOUS TRACING , no significant change noted PREVIOUS TRACIN01/21/2015 21.57 DOCTOR: Pamela Nguyen Interpretating Date/Time 03/28/2016 13:41:58
[2016-03-28] MEDS ORDERED: ACETAMINOPHEN/HYDROcodone 325 MG/7.5 MG TAB PO PRN (13:45)
--- NOTE | 2016-03-28 13:46 | HHI.HP ---
[facility] Non-Staff Admission Diagnosis COPD exacerbation. Diagnoses: Chief Complaint: TMIMONS, SOB Travel History International Travel<30 Days: No Contact w/Intl Traveler <30 Da: No Traveled to Known Affected Are: No History of Present Illness Agents 70 year-old female came to the hospital with increasing work of breathing and dyspnea on exertion. She is not hypoxemic but reports increased dyspnea at home with minimal exertion. He does say she was admitted to the hospital with COPD exacerbation at that time echocardiogram was done and did show slightly reduced ejection fraction. Patient did well with medical management of COPD at that time however at this time appears to have congestive heart failure exacerbation. She will be continued for observation here and will see her life science teacher for acute exacerbation of systolic heart failure. Review of Systems Constitutional: DENIES: Diaphoretic episodes, Fatigue, Fever, Weight gain, Weight loss, Chills, Dizziness, Change in appetite, Night Sweats Endocrine: DENIES: Abnorml menstrual pattern, Heat/cold intolerance, Polydipsia , Polyuria, Polyphagia Eyes: DENIES: Blurred vision, Diplopia, Eye inflammation, Eye pain, Vision loss , Photosensitivity, Double Vision Ears, nose, mouth, throat: DENIES: Tinnitus, Hearing loss, Vertigo, Nasal discharge, Oral lesions, Throat pain, Hoarseness, Ear Pain, Running Nose, Epistaxis, Sinus Pain, Toothache, Odynophagia Respiratory: COMPLAINS OF: Cough, Shortness of breath, DENIES: Apneas, Snoring , Wheezing, Hemoptysis, Sputum production Cardiovascular: COMPLAINS OF: Dyspnea on Exertion, DENIES: Chest pain, Palpitations, Syncope, PND, Lower Extremity Edema, Orthopnea, Claudication Gastrointestinal: DENIES: Abdominal pain, Black stools, Bloody stools, Constipation, Diarrhea, Nausea, Vomiting, Difficulty Swallowing, Anorexia Genitourinary: DENIES: Abnormal vaginal bleeding, Dysmenorrhea, Dyspareunia, Sexual dysfunction, Urinary frequency, Urinary incontinence, Urgency, Hematuria , Dysuria, Nocturia, Vaginal discharge Musculoskeletal: DENIES: Joint pain, Muscle aches, Stiffness, Joint Swelling, Back pain, Neck pain Integumentary: DENIES: Abnormal pigmentation, Pruritus, Rash, Nail changes, Breast masses, Breast skin changes, Nipple discharge Hematologic/lymphatic: DENIES: Bruising, Lymphadenopathy Immunologic/allergic: DENIES: Eczema, Urticaria Neurologic: DENIES: Abnormal gait, Headache, Localized weakness, Paresthesias, Seizures, Speech Problems, Tremor, Poor Balance Psychiatric: DENIES: Anxiety, Confusion, Mood changes, Depression, Hallucinations, Agitation, Suicidal Ideation, Homicidal Ideation, Delusions Past Family Social History Past Medical History Systolic heart failure COPD Coronary artery disease Past Surgical History Bladder suspension, cardiac stents 11, cardiac bypass, hysterectomy, gastric banding Reported Medications Reviewed in the medical record Allergies: Coded Allergies: Lisinopril (Verified Allergy, Severe, Cough, 03/27/16) PERSISTENT COUGH Codeine (Verified Allergy, Mild, NAUSEA, 03/27/16) PATIENT STATES SHE IS NOT ALLERGIC TO MEDICATION Cephalexin (Verified Allergy, Unknown, Nausea/Vomiting, 03/27/16) Flovent (Verified Allergy, Unknown, 03/27/16) THROAT SWELLING Active Ordered Medications Reviewed in the medical record Family History Mother from COPD at 78 Social History This patient quit smoking at her last admission No alcohol dependency Physical Exam Vital Signs Vital Signs Date Time Temp Pulse Resp B/P Pulse Ox O2 Delivery O2 Flow Rate FiO2 03/28/16 12:34 96.2 86 18 154/66 96 03/28/16 08:18 96.8 90 18 149/76 94 03/28/16 07:59 95 21 03/28/16 04:00 96.2 90 16 146/64 96 03/28/16 00:00 97.8 88 20 154/76 96 03/27/16 23:34 84 03/27/16 22:50 88 18 133/60 95 Nasal Cannula 2 03/27/16 21:43 20 03/27/16 21:16 87 18 137/ 98 Nasal Cannula 03/27/16 21:16 87 18 96 Nasal Cannula 2 03/27/16 20:05 88 20 125/53 97 Nasal Cannula 2 03/27/16 19:20 93 Nasal Cannula 2.00 03/27/16 19:02 87 20 150/61 92 Nasal Cannula 2 03/27/16 19:02 87 20 92 Nasal Cannula 2 03/27/16 19:01 20 03/27/16 17:59 89 22 154/60 92 Room Air 03/27/16 16:14 80 17 145/67 96 Nasal Cannula 2 03/27/16 15:11 100 Nasal Cannula 2 03/27/16 15:11 100 Nasal Cannula 2 03/27/16 15:02 82 100 Nasal Cannula 2 03/27/16 14:59 98.2 82 32 177/79 93 Room Air Physical Exam GENERAL: This is a well-nourished, well-developed patient, in no apparent distress. SKIN: No rashes, ecchymoses or lesions. Cool and dry. HEAD: Atraumatic. Normocephalic. No temporal or scalp tenderness. EYES: Pupils equal round and reactive. Extraocular motions intact. No scleral icterus. No injection or drainage. ENT: Nose without bleeding, purulent drainage or septal hematoma. Throat without erythema, tonsillar hypertrophy or exudate. Uvula midline. Airway patent. NECK: Trachea midline. No JVD or lymphadenopathy. Supple, nontender, no meningeal signs. CARDIOVASCULAR: Regular rate and rhythm without murmurs, gallops, or rubs. RESPIRATORY: Some left-sided wheezes and coughs, crackles in the bases which are fine GASTROINTESTINAL: Abdomen soft, non-tender, nondistended. No hepato-splenomegaly , or palpable masses. No guarding. MUSCULOSKELETAL: Extremities without clubbing, cyanosis, or edema. No joint tenderness, effusion, or edema noted. No calf tenderness. Negative Homans sign bilaterally. NEUROLOGICAL: Awake and alert. Cranial nerves II through XII intact. Motor and sensory grossly within normal limits. Five out of 5 muscle strength in all muscle groups. Normal speech. Laboratory Laboratory Tests Test 03/27/16 03/27/16 15:23 18:29 White Blood Count 8.9 Red Blood Count 4.76 Hemoglobin 13.9 Hematocrit 42.6 Mean Corpuscular Volume 89.6 Mean Corpuscular Hemoglobin 29.3 Mean Corpuscular Hemoglobin 32.7 Concent Red Cell Distribution Width 13.8 Platelet Count 252 Mean Platelet Volume 8.9 Neutrophils (%) (Auto) 71.6 Lymphocytes (%) (Auto) 20.6 Monocytes (%) (Auto) 4.5 Eosinophils (%) (Auto) 2.7 Basophils (%) (Auto) 0.6 Neutrophils # (Auto) 6.4 Lymphocytes # (Auto) 1.8 Monocytes # (Auto) 0.4 Eosinophils # (Auto) 0.2 Basophils # (Auto) 0.1 CBC Comment DIFF FINAL Differential Comment Sodium Level 143 Potassium Level 3.8 Chloride Level 105 Carbon Dioxide Level 31.6 Anion Gap 6 Blood Urea Nitrogen 12 Creatinine 0.84 Estimat Glomerular Filtration 67 Rate Random Glucose 97 Calcium Level 8.8 Total Bilirubin 0.4 Aspartate Amino Transf 8 (AST/SGOT) Alanine Aminotransferase 15 (ALT/SGPT) Alkaline Phosphatase 94 Total Protein 7.1 Albumin 3.5 Blood Gas Puncture Site IV Blood Gas Patient Temperature 98.6 Venous Blood pH 7.39 Venous Blood Partial Pressure 48 CO2 Venous Blood Partial Pressure 36 O2 Venous Blood HCO3 28 Venous Blood Oxygen Saturation 60 Venous Blood Oxygen Content 11.0 Venous Blood Base Excess 3.7 Oxygen Delivery Device ROOM AIR Blood Gas Inspired Oxygen 21 Result Diagram: 03/27/16 1523 03/27/16 1523 Imaging Last Impressions Chest X-Ray 03/27/16 1508 Signed Impressions: Service Date/Time: Sunday, March 27, 2016 15:28 - CONCLUSION: Mild compensated cardiomegaly. Bayron Jimenez MD FACR Assessment and Plan Problem List: (1) CHF exacerbation ICD Code: I50.9 Status: Acute Plan: With apparent mild exacerbation of systolic heart failure. We'll continue with Lasix and potassium Echo done 02/2016 shows mild reduction in prior Systolic function Patient education Patient does have chronic coronary disease and follows up with the [facility] heart group, she denies any history of congestive heart failure but certainly has reasons to have heart failure given her extensive coronary disease and lung disease. We will ask cardiology to assist with medication management patient cannot tolerate lisinopril due to cough or Cozaar due to a rash (2) COPD (chronic obstructive pulmonary disease) ICD Code: J44.9 Status: Chronic Plan: Currently without apparent exacerbation, We'll document walk test Continue (3) Headache ICD Code: R51 Status: Acute Plan: Patient requests narcotics Florina De La Cruz MD Mar 28, 2016 13:46
[2016-03-28] MEDS ORDERED: POTA-163 PO (14:12)
[2016-03-28] MEDS ORDERED: FURO1TAB62 PO (14:12)
--- NOTE | 2016-03-28 14:12 | HHI.DCPOC ---
Discharge Care Plan Diagnosis: (1) CHF exacerbation Goals to Promote Your Health * To prevent worsening of your condition and complications * To maintain your health at the optimal level Directions to Meet Your Goals Take your medications as prescribed Follow your dietary instruction Follow activity as directed Keep your appointments as scheduled Take your immunizations and boosters as scheduled If your symptoms worsen call your PCP, if no PCP go to Urgent Care Center or Emergency Room Smoking is Dangerous to Your Health. Avoid second hand smoke Call the 24-hour hour crisis hotline for domestic abuse at Florina De La Cruz MD Mar 28, 2016 14:12
--- NOTE | 2016-03-28 14:32 | EKG ---
Date Performed: 03/27/2016 Time Performed: 16:43:06 PTAGE: 70 years EKG: Sinus rhythm Inferior infarct - age undetermined Lateral ST-T changes may be due to myocardial ischemia Compared to prior tracing no significant change Abnormal ECG PREVIOUS TRACING : 03/27/2016 15.50 DOCTOR: Pamela Nguyen Interpretating Date/Time 03/28/2016 14:32:24
--- NOTE | 2016-03-28 16:10 | MB ---
cc: HERMAN DE LA CRUZ MD, ALAN S. M.D. MORALES, GERALDINO DATE OF CONSULTATION: 03/28/2016 REASON FOR CONSULTATION: HISTORY OF PRESENT ILLNESS: The patient is a 70-year-old woman who I follow, and who I am seeing for shortness of breath. The patient has had prior coronary stents. She underwent bypass surgery in 2010. Last catheterization 09/07 showed a 40% ejection fraction with restenosis of the mid RCA stent for which she underwent ballooning with focal stenting of the more distal lesion with a drug-eluting stent. Her SALTER to the LAD was patent as was her vein graft to the diagonal but she had an occluded vein graft to the RCA. The patient has chronic COPD. She is a prior smoker. Echocardiogram done in the hospital 03/14 showed a 45-50% ejection fraction with mild MR/TR. She has chronic moderate dyspnea on exertion. This has worsened more recently. Apparently she was in the hospital for pneumonia in the last month. She also notes that she has had pleuritic chest pain recently and has had purulent sputum. She has no other cardiopulmonary symptoms, fevers or chills. PAST MEDICAL HISTORY 1. Moderate bilateral carotid disease with bilateral carotid bruit. COPD 2. Hypertension 3. Hyperlipidemia 4. Heart murmur 5. PVCs. PAST SURGERIES 1. Bypass surgery to 2005 2. Bladder repair 3. Appendectomy 4. Right hand surgery 5. Lap band 6. Hysterectomy. SOCIAL HISTORY: She is a , former smoker and rarely drinks. FAMILY HISTORY Remarkable for coronary disease. ALLERGIES/INTOLERANCES: RAMIREZ INHIBITOR CODEINE COZAAR LOSARTAN PLEATAL WELLBUTRIN MEDICATIONS: Reviewed. REVIEW OF SYSTEMS: Remarkable for the above with occasional joint pain. EKG shows sinus rhythm with inferior NV pattern and baseline artifact. X-RAYS: Chest x-ray reveals compensated cardiomegaly but with clear lung manuel. LABORATORY WORK CBC normal. Potassium 3.8, creatinine 0.84, glucose 97. Liver functions normal. BNP was not done. Blood gas may well be zenith. PHYSICAL EXAMINATION: On exam, she has mild shortness of breath but is alert and oriented x3 and afebrile. Vital signs stable. There are no xanthelasma and oral pharyngeal mucosa normal. Chest: With decreased breath sounds, on forced expiration there is moderate scales-expiratory wheezes. Neck: JVD normal. Heart: S1-S2 with a short 1/6 systolic ejection murmur at the base. Abdomen: Benign except for her lap band. Extremities: Show no cyanosis, clubbing or edema. Pulses: Carotids with bilateral bruits. Radials 1+, femorals 1+ without bruits. Pedals 1+. She is not ambulated. ASSESSMENT AND PLAN: Maryam has shortness of breath which appears to be an exacerbation of her COPD with worsening sputum production and wheezing. She has no edema and has clear lung manuel. Her left ventricular function is only minimally depressed. I do not think this is congestive heart failure at all. At this point in time I would recommend the followin. Continue home medication. 2. Low cholesterol/salt diet. 3. Will obtain a CT angiogram to rule out pulmonary embolus given her pleuritic chest pain. 4. COPD management per primary service and subsequently per her PCP. 5. We will not follow but be available if needed. I will have her keep her routinely scheduled office visit with myself. 6. Discussed with Dr. De La Cruz. All questions were answered. MD ABDIAS Mccann/BAKARI /2:48 PM /3:06 PM JESUS
[2016-03-28] MEDS ORDERED: IOHEXOL 350 MG/ML 10 ML VIAL (for RAD DIAG) IV ONE (17:36)
[2016-03-28 17:47] VITALS: BP 165/70; PULSE 89; RESP 18; TEMP 97.6; O2SAT 94
--- NOTE | 2016-03-28 17:51 | RADHPO ---
EXAM DATE/TIME: 03/28/2016 17:10 [facility] COMPARISON: None. INDICATIONS : Cough for 3 months. IV CONTRAST: 65 cc Omnipaque 350 (iohexol) IV RADIATION DOSE: 12.36 CTDIvol (mGy) MEDICAL HISTORY : Chronic obstructive pulmonary disease. Hypertension. Cardiovascular disease SURGICAL HISTORY : CABG Hysterectomy.Lap band, cardiac stents ENCOUNTER: Initial ACUITY: 3 months PAIN SCALE: 0/10 LOCATION: chest TECHNIQUE: Volumetric scanning of the chest was performed using a pulmonary embolism protocol MIP images were re constructed. Using automated exposure control and adjustment of the mA and/or kV according to patien t size, radiation dose was kept as low as reasonably achievable to obtain optimal diagnostic quality images. FINDINGS: PULMONARY ARTERIES: No filling defects are seen in the pulmonary arteries through the segmental level. LUNGS: There is no consolidation or pneumothorax . No concerning pulmonary nodule is visualized. PLEURAE: There is no pleural thickening or pleural effusion. MEDIASTINUM: There is good visualization of the great vessels of the middle mediastinum. No evidence of mediastin al or hilar adenopathy/mass. Dense atherosclerotic calcifications present including within the castellanos shravan. MUSCULOSKELETAL: Within normal limits for patient age. MISCELLANEOUS: The visualized upper abdominal organs demonstrate no acute abnormality. Lap band implement noted CONCLUSION: No evidence of pulmonary embolism. Quentin Eddy MD Board Certified Radiologist. This report was verified electronically.
[2016-03-28] MEDS ORDERED: FUROSEMIDE 40 MG/4 ML VIAL IV PUSH SCH (18:00)
[2016-03-28] MEDS ORDERED: ATORVASTATIN 40 MG TAB PO SCH (21:00)
[2016-03-29] MEDS ORDERED: POTASSIUM CHLORIDE 20 MEQ CONTROLLED RELEASE TAB PO SCH (09:00)
== END 2016-03-28 18:51 | disposition home or self-care (01) ==
LOC: PHED 14:47 → PHEDA 18:18 → PH3A 22:48
PROVIDERS: ADMIT Family Medicine; ATTEND Family Medicine
DX: J44.1 Chronic obstructive pulmonary disease with (acute) exacerbation (principal); I50.23 Acute on chronic systolic (congestive) heart failure; I25.10 Atherosclerotic heart disease of native coronary artery without angina pectoris; I10 Essential (primary) hypertension; I25.2 Old myocardial infarction; E78.00 Pure hypercholesterolemia, unspecified; E78.5 Hyperlipidemia, unspecified; K21.9 Gastro-esophageal reflux disease without esophagitis; Z87.891 Personal history of nicotine dependence; Z95.1 Presence of aortocoronary bypass graft; Z95.5 Presence of coronary angioplasty implant and graft
CPT/HCPCS: 71010; 71275; 80053; 82805; 85025; 93005; 94620; 94640; 94664; 99285; G0378; J2270; J7512; Q9967

== ENCOUNTER 2016-12-06 09:13 | Inpatient (IN) | payer OTHER, MEDICAID, MEDICARE ==
[~2016-12-06] VITALS: Ht 160 cm; Wt 69.5 kg
[2016-12-06] VITALS (11 sets, daily range): BP systolic 139–216; BP diastolic 59–88; PULSE 58–83; RESP 18–36; TEMP 98–98.6; O2SAT 89–98
[~2016-12-06 09:13] MED LIST changes: +FURO1TAB62 PO; -LEVA750T PO; +POTA-163 PO; -PRED10PA PO; -ZOFR4TAB3 SL
[2016-12-06] MEDS ORDERED: HEPARIN-D5W 25,000 U/250 ML 250 ML IV ONE ×2 (09:45→11:15)
[2016-12-06] MEDS ORDERED: ONDANSETRON HCL 4 MG/2 ML VIAL IV PUSH ONE (09:45)
[2016-12-06] MEDS ORDERED: SODIUM CHLORIDE 0.9% FLUSH 10 ML FLUSH IVF PRN (09:45)
[2016-12-06] MEDS ORDERED: MORPHINE SULFATE 4 MG/ML INJ IV PUSH ONE (09:45)
[2016-12-06] MEDS ORDERED: HEPARIN SODIUM - IV 10,000 UNITS/10 ML VIAL IV ONE (09:45)
[2016-12-06] MEDS ORDERED: PROZ20CA11 PO (09:57)
[2016-12-06] MEDS ORDERED: HYDR-3516 PO (09:57)
[2016-12-06] MEDS ORDERED: TEMA15CA PO (09:57)
--- NOTE | 2016-12-06 10:27 | RADRPT ---
EXAM DATE/TIME: 12/06/2016 09:56 [facility] COMPARISON: CHEST SINGLE AP, March 27, 2016, 15:28. INDICATIONS : Chest pain started this am. MEDICAL HISTORY : Cardiovascular disease. Chronic obstructive pulmonary disease. Hypertension. SURGICAL HISTORY : CABG. Hysterectomy.Lap band, cardiac stents ENCOUNTER: Initial ACUITY: 1 day PAIN SCORE: 6/10 LOCATION: Bilateral chest FINDINGS: A single portable frontal view the chest shows a vague parenchymal consolidation at the right cardiop hrenic angle. Remaining lungs are clear. Heart is at the upper limits of normal in terms of size. No effusions. Median sternotomy wires. CONCLUSION: Right lower lobe atelectasis versus infiltrate. Guilherme Kwan Jr., MD on December 06, 2016 at 10:22 Board Certified Radiologist. This report was verified electronically.
[2016-12-06 10:39] LABS: HEMATOCRIT 35.9 % (35.0-46.0); MEAN CELL VOLUME 88.5 FL (80.0-100.0); MEAN CORPUSCULAR HEMOGLOBIN 29.2 PG (27.0-34.0); PLATELET COUNT 180 TH/MM3 (150-450); RED BLOOD COUNT 4.06 MIL/MM3 (4.00-5.30); RED CELL DISTRIBUTION WIDTH 14.3 % (11.6-17.2); REVIEW FLAG FINAL; WHITE BLOOD COUNT 6.1 TH/MM3 (4.0-11.0)
[2016-12-06 10:48] LABS: APTT (PATIENT) 26.6 SEC (24.3-30.1)
[2016-12-06 10:57] LABS: POTASSIUM 4.1 MEQ/L (3.5-5.1)
--- NOTE | 2016-12-06 11:01 | PD ---
HPI Chief Complaint: Cardiac Complaint Time Seen by Provider: 09:17 Travel History International Travel<30 days: No Contact w/Intl Traveler<30days: No Traveled to known affect area: No History of Present Illness HPI 71-year-old female came to the emergency room with history of crushing chest pain that woke her up from her sleep along with shortness of breath this morning. This happened at 5 this morning. Patient said that she found herself drenched in sweat. She initially thought that this was from her COPD since she has been getting on and off chest pain with shortness of breath. She went to see her cnc machinist 2nd shift yesterday and was told that her EKG looked okay and it was secondary to her COPD. Patient took her Combivent but her symptoms did not improve. After an hour she decided to take her nitroglycerin followed by which chest pain significantly subsided. The pain was on the left side of her chest radiating down her left arm. It felt like severe pressure and she rated it 10 out of 10. 2 hours after that she decided to get up and go to the restroom to have a bowel movement and after walking few steps the chest pain came back along with the shortness of breath and diaphoresis. She took another nitroglycerin and called her sister who lives downstairs. Sister called 911. When EMS arrived they gave her 2 more nitroglycerin and aspirin. Currently patient says her pressure is 3-4 out of 10. Patient continues to smoke half a pack per day. Vital signs are relatively stable. No history of nausea or vomiting. No history of syncopal episode. Patient has significant history of coronary artery disease in the form of multiple stents and CABG. [facility] Past Medical History Narrative Medical List of her past medical, surgical, social and family history is reviewed from the nursing note. Hx Anticoagulant Therapy: Yes (Plavix) Arthritis: Yes Asthma: No Blood Disorders: No Anxiety: Yes Depression: Yes (LOST SON 3 WEEKS AGO. STATES SHE IS MEDICATING HERSELF WITH XANEX) Heart Rhythm Problems: No Cancer: Yes (CURRENT POSSIBLE CONCERN ) Cardiac Catheterization: Yes Cardiovascular Problems: Yes High Cholesterol: Yes Chemotherapy: No Chest Pain: Yes Congestive Heart Failure: No (NOT SURE) COPD: Yes Cerebrovascular Accident: No Coronary Artery Disease: Yes Developmental Delay: No Diabetes: No Diminished Hearing: Yes ([place] both ears) Endocrine: No Gastrointestinal Disorders: Yes (LAP BAND) GERD: Yes Genitourinary: Yes Headaches: Yes Hepatitis: No Hiatal Hernia: No Hypertension: Yes Immune Disorder: No Implanted Vascular Access Dvce: Yes Kidney Stones: No Musculoskeletal: Yes Neurologic: Yes Psychiatric: Yes Reproductive: No Respiratory: Yes Immunizations Current: Yes Migraines: No Myocardial Infarction: Yes ( 2005) Renal Failure: No Seizures: No Sleep Apnea: No Thyroid Disease: No Triglycerides - High: Yes Ulcer: No Tetanus Vaccination: < 5 Years Influenza Vaccination: Yes PNEUMOCCOCAL Vaccine (Year): 3 Menopausal: Yes Past Surgical History Abdominal Surgery: Yes (LAP BAND) AICD: No Appendectomy: Yes Arteriovenous Shunt: No Body Medical Devices: PORT FOR LAP BAND FILLS Cardiac Surgery: Yes (STENTS X 11,) Cholecystectomy: No Coronary Artery Bypass Graft: Yes Coronary Stent: Yes (11 STENTS) Ear Surgery: No Endocrine Surgery: No Eye Surgery: Yes (CATARACT) Genitourinary Surgery: Yes (BLADDER SUSPENSION) Gynecologic Surgery: Yes (HYSTERECTOMY. LUMPECTOMY, ) Hysterectomy: Yes Insulin Pump: No Joint Replacement: No Neurologic Surgery: No Oral Surgery: No Pacemaker: No Thoracic Surgery: No Other Surgery: Yes (LEFT BREAST LUMPECTOMY) Family History Family Myocardial Infarction: Yes Social History Alcohol Use: No Tobacco Use: Yes Substance Use: No Allergies-Medications (Allergen,Severity, Reaction): Coded Allergies: lisinopril (Unverified Allergy, Severe, Cough, 12/06/16) PERSISTENT COUGH codeine (Unverified Allergy, Mild, NAUSEA, 12/06/16) PATIENT STATES SHE IS NOT ALLERGIC TO MEDICATION cephalexin (Unverified Allergy, Unknown, Nausea/Vomiting, 12/06/16) fluticasone (Unverified Allergy, Unknown, 12/06/16) THROAT SWELLING fluticasone furoate (Unverified Allergy, Unknown, 12/06/16) THROAT SWELLING salmeterol (Unverified Allergy, Unknown, 12/06/16) THROAT SWELLING Comments List of her allergies reviewed from the nursing note. Reported Meds & Prescriptions Reported Meds & Active Scripts Active Potassium Chloride ER (Potassium Chloride) 20 Meq Tab 20 Meq PO DAILY Lasix (Furosemide) 20 Mg Tab 20 Mg PO BID Take 20 mg twice daily for 7 days then 20 mg a day Reported Temazepam 15 Mg Cap 15 Mg PO HS PRN Prozac (Fluoxetine HCl) 20 Mg Cap 20 Mg PO BID Hydrocodone-Acetaminophen 5-325 mg Tab 1 Tab PO Q6H PRN Combivent Respimat Inh (Ipratropium-Albuterol Inh) 20-100 Usp/Act Aero 1 Puff INH BID Ventolin Hfa 18 GM Inh (Albuterol Sulfate) 90 Mcg/Act Aer 2 Puff INH Q4-6H PRN Alprazolam 0.5 Mg Tab 0.5 Mg PO TID PRN Atorvastatin (Atorvastatin Calcium) 80 Mg Tab 80 Mg PO HS Metoprolol Tartrate 50 Mg Tab 50 Mg PO BID Amlodipine (Amlodipine Besylate) 5 Mg Tab 5 Mg PO BID Isosorbide Mononitrate ER (Isosorbide Mononitrate) 30 Mg Liza 30 Mg PO DAILY Clopidogrel (Clopidogrel Bisulfate) 75 Mg Tab 75 Mg PO DAILY Narrative Medication List of her home medications reviewed from the nursing note. Review of Systems Except as stated in HPI: all other systems reviewed are Neg Cardiovascular: Positive: Chest Pain or Discomfort, Diaphoresis, Dyspnea on exertion Physical Exam Narrative GENERAL: Awake, alert, moderate distress, anxious SKIN: Focused skin assessment warm/dry. Pale HEAD: Atraumatic. Normocephalic. EYES: Pupils equal and round. No scleral icterus. No injection or drainage. ENT: No nasal bleeding or discharge. Mucous membranes pink and moist. NECK: Trachea midline. No JVD. CARDIOVASCULAR: Regular rate and rhythm. No murmur appreciated. RESPIRATORY: No accessory muscle use. Clear to auscultation. Breath sounds equal bilaterally. GASTROINTESTINAL: Abdomen soft, non-tender, nondistended. Hepatic and splenic margins not palpable. MUSCULOSKELETAL: No obvious deformities. No clubbing. No cyanosis. No edema. NEUROLOGICAL: Awake and alert. No obvious cranial nerve deficits. Motor grossly within normal limits. Normal speech. PSYCHIATRIC: Appropriate mood and affect; insight and judgment normal. Data Data Last Documented VS Vital Signs Date Time Temp Pulse Resp B/P (MAP) Pulse Ox O2 Delivery O2 Flow Rate FiO2 12/06/16 11:01 61 23 139/59 (85) 96 Nasal Cannula 2.00 12/06/16 09:15 98.0 Orders Orders Electrocardiogram (12/06/16 ) Basic Metabolic Panel (Bmp) (12/06/16 09:32) Ckmb (Isoenzyme) Profile (12/06/16 09:32) Magnesium (Mg) (12/06/16 09:32) Prothrombin Time / Inr (Pt) (12/06/16 09:32) Act Partial Throm Time (Ptt) (12/06/16 09:32) Troponin I (12/06/16 09:32) Chest, Single Ap (12/06/16 09:32) Ecg Monitoring (12/06/16 09:32) Bilateral Bp Monitoring (12/06/16 09:32) Iv Access Insert/Monitor (12/06/16 09:32) Oximetry (12/06/16 09:32) Oxygen Administration (12/06/16 09:32) Sodium Chloride 0.9% Flush (Ns Flush) (12/06/16 09:45) Heparin Infusion VIVIAN.Q1H (12/06/16 09:38) Heparin Inj (Heparin Inj) (12/06/16 09:45) Heparin Inj (Heparin Inj) (12/06/16 15:45) Heparin Inj (Heparin Inj) (12/06/16 15:45) Heparin-D5w 25,000 U/250 Ml (Heparin-D5w (12/06/16 09:45) Cbc No Diff, Includes Plts (12/06/16 09:38) Cbc No Diff, Includes Plts (12/09/16 06:00) Act Partial Throm Time (Ptt) (12/06/16 16:38) Occult Blood (Hemoccult) Stool (12/06/16 09:38) Morphine Inj (Morphine Inj) (12/06/16 09:45) Ondansetron Inj (Zofran Inj) (12/06/16 09:45) Consult Cardiology (12/06/16 ) Admit Order (Ed Use Only) (12/06/16 12:01) Admit To Inpatient (12/06/16 ) Ckmb (Isoenzyme) Profile (12/06/16 12:01) Ckmb (Isoenzyme) Profile (12/06/16 18:01) Ckmb (Isoenzyme) Profile (12/07/16 00:01) Troponin I (12/06/16 12:01) Troponin I (12/06/16 18:01) Troponin I (12/07/16 00:01) Basic Metabolic Panel (Bmp) (12/07/16 06:00) Hepatic Functional Panel (12/06/16 12:01) Lipid Profile (12/06/16 12:01) Complete Blood Count With Diff (12/07/16 06:00) ^ Obtain As Needed (12/06/16 12:01) Diet Npo Except Meds (12/06/16 Lunch) Activity Bed Rest With Brp (12/06/16 12:01) ^ Notify Of These Side Effects (12/06/16 12:01) Notify Dr: Blood Pressure (12/06/16 12:01) Notify Dr: Heart Rate (12/06/16 12:01) Resp Oxygen Nasal Cannula (12/06/16 ) Teaching Record: Cardiac Educa VIVIAN.Q12H (12/06/16 12:01) Nitroglycerin Sl (Nitrostat Sl) (12/06/16 12:15) Morphine Inj (Morphine Inj) (12/06/16 12:15) Alprazolam (Xanax) (12/06/16 12:15) Vital Signs (Adult) VIVIAN.Q4H (12/06/16 12:01) Electric Clock Mechanic / Telemetry VIVIAN.Q8H (12/06/16 12:01) Atorvastatin (Lipitor) (12/06/16 21:00) Scd Bilateral/Knee High VIVIAN.BID (12/06/16 12:01) Inpatient Certification (12/06/16 ) Labs Laboratory Tests Test 12/06/16 09:31 White Blood Count 6.1 TH/MM3 Red Blood Count 4.06 MIL/MM3 Hemoglobin 11.9 GM/DL Hematocrit 35.9 % Mean Corpuscular Volume 88.5 FL Mean Corpuscular Hemoglobin 29.2 PG Mean Corpuscular Hemoglobin Concent 33.0 % Red Cell Distribution Width 14.3 % Platelet Count 180 TH/MM3 Mean Platelet Volume 9.6 FL Prothrombin Time 11.0 SEC Prothromb Time International Ratio 1.0 RATIO Activated Partial Thromboplast Time 26.6 SEC Blood Urea Nitrogen 17 MG/DL Creatinine 0.94 MG/DL Random Glucose 101 MG/DL Calcium Level 8.4 MG/DL Magnesium Level 2.0 MG/DL Sodium Level 137 MEQ/L Potassium Level 4.1 MEQ/L Chloride Level 103 MEQ/L Carbon Dioxide Level 28.0 MEQ/L Anion Gap 6 MEQ/L Estimat Glomerular Filtration Rate 59 ML/MIN Total Creatine Kinase 49 U/L Troponin I 0.42 NG/ML [facility] Medical Decision Making Medical Screen Exam Complete: Yes Emergency Medical Condition: Yes Medical Record Reviewed: Yes Interpretation(s) Twelve-lead EKG was reviewed by me. Normal sinus rhythm, normal axis, lateral and inferior T wave inversions, inferior Q waves. This is unchanged from 2016. Heart rate of 62 bpm. Differential Diagnosis Non-STEMI, unstable angina, ACS Narrative Course 11 AM based on this concerning story my suspicion is really high for unstable angina/non-STEMI. I have started on heparin bolus and drip. Awaiting for chemistry and troponin to come back. Patient will require admission. Once I have the blood test result I'll discuss with her cnc machinist [address] Dr[address] Valentine about this patient as well. Incidentally patient was admitted in October of 2014 for chest pain when a nuclear stress test was done. The myocardial perfusion scan showed "Large fixed perfusion defect laterally in an adjacent inferior wall without redistribution indicating infarction. Global hypokinesis most marked in the septal region with EF of 30%". Patient has not had any cardiac catheterization in past 10 years. Given these findings she should get a cardiac catheterization in my opinion this time. 11:25 AM the troponin came back elevated. I discussed the case with patient's cnc machinist [address] Valentine who agrees with the management so far. They will consult and decide for cardiac catheter. Awaiting for the hospitalist to call back. Critical Care Narrative Aggregate critical care time was 45 minutes. Time to perform other separately billable procedures was not included in the critical care time. My time did not include minutes spent treating any other patients simultaneously or on activities that did not directly contribute to the patient's treatment. The services I provided to this patient were to treat and/or prevent clinically significant deterioration that could result in: Non-STEMI, heparin bolus and drip I provided critical care services requiring my management, as noted below: Chart data review, documentation time, medication orders and management, vital sign assessments/reviewing monitor data, ordering and reviewing lab tests, ordering and interpreting/reviewing x-rays and diagnostic studies, care of the patient and discussion of the patient with the admitting physicians. Procedures EKG Prior to Arrival: Yes Diagnosis Primary Impression: Non-STEMI (non-ST elevated myocardial infarction) Admitting Information Admitting Physician Requests: Admit Arcelia Garciai R. MD Dec 06, 2016 11:01
[2016-12-06] MEDS ORDERED: ALPRAZolam 0.25 MG TAB PO PRN (12:15)
[2016-12-06] MEDS ORDERED: ACETAMINOPHEN/HYDROcodone 325 MG/5 MG TAB PO PRN (14:00)
[2016-12-06] MEDS ORDERED: TEMAZEPAM 15 MG CAP PO PRN (14:00)
[2016-12-06] MEDS ORDERED: diphenhydrAMINE HCL 50 MG CAP PO SCH (14:00)
[2016-12-06] MEDS ORDERED: DIAZEPAM 10 MG TAB PO SCH (14:00)
--- NOTE | 2016-12-06 14:41 | EKG ---
Date Performed: 12/06/2016 Time Performed: 09:23:35 PTAGE: 71 years EKG: Sinus rhythm POSSIBLE LEFT ATRIAL ENLARGEMENT PROBABLE INFERIOR MYOCARDIAL INFARCTION MODERATE T-WAVE ABNORMALITY , CONSIDER LATERAL ISCHEMIA ABNORMAL ECG PREVIOUS TRACING : 03/27/2016 16.43 Compared to prior tracing no significant change DOCTOR: Ephraim Lemus Interpretating Date/Time 12/06/2016 14:40:08
--- NOTE | 2016-12-06 14:41 | MB ---
cc: SARAH HACKETT M.D. DATE OF CONSULTATION: 12/06/2016 REASON FOR CONSULTATION Unstable angina, abnormal troponin level. HISTORY OF PRESENT ILLNESS The patient is a 71-year-old white female, followed in our office by Dr. Leonardo Valentine, with a history of coronary artery disease, COPD, gastroesophageal reflux disease, hypertension, hyperlipidemia, who presented to the hospital with fairly severe shortness of breath and chest discomfort. A few days ago she noticed some episodic substernal chest discomfort described as "pressure," although at that time never lasting more than a few minutes. Sometime early this morning while going to the bathroom she developed severe substernal chest discomfort associated with severe shortness of breath, nausea, diaphoresis. The chest discomfort lasted about 30 minutes. It recurred about 3-4 hours later, again associated with shortness of breath, so she finally came to the emergency room for further evaluation and treatment. Initial troponin level was found to be slightly abnormal. She denies pleurisy, syncope, near-syncope, palpitations, pedal edema. She has felt mildly lightheaded intermittently today. She reports compliance with her medications. For the most part she is sedentary. PAST MEDICAL HISTORY 1. Coronary artery disease status post bypass surgery 2005 at which time she underwent a left internal mammary artery to the LAD, vein graft to the right coronary artery, vein graft to the diagonal. She is also status post stent of the proximal left circumflex November 2007 using a 2.5 mm Cypher stent, status post angioplasty of the very proximal LAD June 2009, status post stent of the proximal and distal right coronary artery February 07, 2011 using two 2.5 mm Xience stents, status post repeat stenting of the right coronary artery in its midportion October 11, 2011 using a 2.5 mm Xience stent, stent of the mid right coronary artery August 2012 using a 2.5 mm Resolute stent, and then status post stent of the mid right coronary artery again September 29, 2012 using a 2.5 mm Resolute stent which was post dilated using a 2.75 mm noncompliant balloon. 2. Hypertension. 3. Hyperlipidemia. 4. COPD. 5. Gastroesophageal reflux disease. MEDICATIONS Her cardiac medications at home: 1. Clopidogrel 75 mg q. daily. 2. Isosorbide mononitrate 30 mg q. daily. 3. Amlodipine 5 mg b.i.d. 4. Metoprolol tartrate 50 mg b.i.d. 5. Atorvastatin 80 mg q.h.s. 6. Potassium chloride 20 mEq q. daily. 7. Furosemide 20 mg b.i.d. ALLERGIES 1. RAMIREZ INHIBITORS. 2. CODEINE. 3. CEPHALEXIN. 4. FLUTICASONE. 5. SALMETEROL. FAMILY HISTORY Noncontributory. SOCIAL HISTORY The patient continues to smoke cigarettes. She denies alcohol abuse. REVIEW OF SYSTEMS As in the history of present illness, otherwise negative or noncontributory. She also denies dyspepsia, bright red blood per rectum, melena, fevers, cough, wheezing. PHYSICAL EXAMINATION VITAL SIGNS: On physical examination her blood pressure is 140/60 with a pulse of 67, respirations 23. GENERAL: In general she is a well-developed, well-nourished white female in no acute distress. HEENT/NECK: Jugular venous pressure is normal. Carotid pulses are 2+ bilaterally and without bruits. CHEST: Examination of the chest reveals diminished breath sounds at the right base. CARDIAC: On cardiac examination she has a regular rhythm and rate without definite S3, S4, or murmur. ABDOMEN: On abdominal examination she has a soft, obese, nontender abdomen. Bowel sounds are present. There is no definite hepatosplenomegaly. EXTREMITIES: Examination of extremities reveals no clubbing, cyanosis or edema. IMAGING Chest x-ray shows right lower lobe atelectasis versus infiltrate. LABORATORY Laboratory data includes normal CBC, potassium 4.1, BUN 17, creatinine 0.94, CK 49, troponin 0.42. EKG EKG shows sinus rhythm, inferior infarct age undetermined, lateral T-wave abnormality, consider ischemia. IMPRESSION Symptoms most suggestive of unstable angina in this 71-year-old white female with an extensive history of coronary artery disease status post bypass surgery 2005, status post numerous percutaneous coronary interventions since that time, COPD, hypertension, hyperlipidemia. At this time she is chest pain free. Initial troponin level is slightly abnormal. Her EKG is somewhat suboptimal but does suggest lateral T-wave changes which are new. In light of the instability of her symptoms she has been recommended cardiac catheterization with probable percutaneous coronary intervention, the risks of which have explained to her including but not limited to , myocardial infarction, stroke, arrhythmia, bleeding, infection, renal failure. She agrees to proceed. RECOMMENDATIONS 1. Continue heparin drip. 2. Continue daily aspirin and clopidogrel. 3. Would continue her usual beta ariane and statin. 4. Cardiac catheterization tomorrow. MD RAUL Pascal/DONNIE /1:50 PM /2:17 PM MTDTori
[2016-12-06] MEDS: amLODIPine BESYLATE 5 MG TAB PO SCH ×2 (15:06→21:35)
[2016-12-06] MEDS ORDERED: IPRATROPIUM ALBUTEROL INH SCH (15:15)
--- NOTE | 2016-12-06 15:21 | HHI.HP ---
HPI Service [facility] Hospitalists Primary Care Physician No Primary Care Physician Admission Diagnosis non-STEMI Diagnoses: Chief Complaint: Chest pain Shortness of breath Diaphoresis Nausea Travel History International Travel<30 Days: No Contact w/Intl Traveler <30 Da: No Traveled to Known Affected Are: No History of Present Illness Written by Elinor Muñoz, acting as scribe for Dr. Dewey on 12/06/16 at 15: 21. This is a 71-year-old female with a past medical history significant for coronary artery disease status post previous PR with prior CABG 5 vessels and previous cardiac stent implant 11, hypertension, COPD with ongoing tobaccoism, dyslipidemia and depression who presents to [facility] ED with complaints of chest pain. Patient reports waking up around 4:30 this morning with a left-sided chest pressure that she rates at 10 out of 10 with associated nausea, shortness of breath and diaphoresis. She endorses radiation of pain down the left arm. Patient states her chest pain improved significantly after she took nitroglycerin. Approximately 2 hours after taking the nitroglycerin, patient states she went up to go to the restroom and again experienced severe chest pain with shortness of breath and diaphoresis. She then took another nitroglycerin and called 911. Patient states she's actually had difficulty breathing for the past several days with minimal exertion just walking from her bed to the bathroom. She also admits to orthopnea. She does not use oxygen at home. She denies any lower extremity swelling. She reports a mild cough which is chronic. She was actually seen by her brush head maker yesterday who attributed her shortness of breath to her COPD and continued tobacco use. In the ED, EKG was obtained which revealed normal sinus rhythm with lateral and inferior T- wave inversions and inferior Q waves unchanged from prior EKG 03/27/16. Patient 's initial troponin came back elevated at 0.42. Patient was started on heparin drip. Cardiology was consulted while patient was in the ED and plans for cardiac catheterization tomorrow. Review of Systems Except as stated in HPI: all other systems reviewed are Neg Past Family Social History Past Medical History CAD status post previous PR with prior CABG and cardiac stent implants 11 COPD with ongoing tobaccoism Hypertension Dyslipidemia Depression Past Surgical History CABG 5 vessels Cardiac stent implant 11 LAP-BAND surgery Hysterectomy Bladder suspension surgery Benign breast lumpectomy Reported Medications Potassium Chloride ER (Potassium Chloride) 20 Meq Tab 20 Meq PO DAILY Lasix (Furosemide) 20 Mg Tab 20 Mg PO BID Take 20 mg twice daily for 7 days then 20 mg a day Temazepam 15 Mg Cap 15 Mg PO HS PRN Prozac (Fluoxetine HCl) 20 Mg Cap 20 Mg PO BID Hydrocodone-Acetaminophen 5-325 mg Tab 1 Tab PO Q6H PRN Combivent Respimat Inh (Ipratropium-Albuterol Inh) 20-100 Usp/Act Aero 1 Puff INH BID Ventolin Hfa 18 GM Inh (Albuterol Sulfate) 90 Mcg/Act Aer 2 Puff INH Q4-6H PRN Alprazolam 0.5 Mg Tab 0.5 Mg PO TID PRN Atorvastatin (Atorvastatin Calcium) 80 Mg Tab 80 Mg PO HS Metoprolol Tartrate 50 Mg Tab 50 Mg PO BID Amlodipine (Amlodipine Besylate) 5 Mg Tab 5 Mg PO BID Isosorbide Mononitrate ER (Isosorbide Mononitrate) 30 Mg Lzia 30 Mg PO DAILY Clopidogrel (Clopidogrel Bisulfate) 75 Mg Tab 75 Mg PO DAILY Allergies: Coded Allergies: lisinopril (Unverified Allergy, Severe, Cough, 12/06/16) PERSISTENT COUGH codeine (Unverified Allergy, Mild, NAUSEA, 12/06/16) PATIENT STATES SHE IS NOT ALLERGIC TO MEDICATION cephalexin (Unverified Allergy, Unknown, Nausea/Vomiting, 12/06/16) fluticasone (Unverified Allergy, Unknown, 12/06/16) THROAT SWELLING fluticasone furoate (Unverified Allergy, Unknown, 12/06/16) THROAT SWELLING salmeterol (Unverified Allergy, Unknown, 12/06/16) THROAT SWELLING Active Ordered Medications Current Medications Medications (Trade) Dose Ordered Sig/Samy Route Start Time Stop Time Status Last Admin (NS Flush) 2 ml UNSCH PRN IVF 12/06/16 09:45 (Heparin Inj) 5,000 units UNSCH PRN IV 12/06/16 15:45 (Heparin Inj) 2,500 units UNSCH PRN IV 12/06/16 15:45 Heparin Sodium/ Dextrose 250 ml @ 8 mls/hr TITRATE ONCE IV 12/06/16 09:45 12/07/16 16:59 12/06/16 12:38 (Nitrostat Sl) 0.4 mg Q5M PRN SL 12/06/16 12:15 (Morphine Inj) 2 mg Q30M PRN IV PUSH 12/06/16 12:15 (Proair Hfa Inh) 2 puff Q4HR NEB PRN INH 12/06/16 14:00 (Xanax) 0.5 mg Q8H PRN PO 12/06/16 14:00 (Norvasc) 5 mg BID PO 12/06/16 15:00 12/06/16 15:06 (Lipitor) 80 mg HS PO 12/06/16 21:00 (Plavix) 75 mg DAILY PO 12/06/16 16:00 (PROzac) 20 mg BID PO 12/06/16 16:00 (Lasix) 20 mg BID PO 12/06/16 16:00 ([place] 5-325 Mg) 1 tab Q6H PRN PO 12/06/16 14:00 (Lopressor) 50 mg BID PO 12/06/16 21:00 (KCl) 20 meq DAILY PO 12/06/16 14:00 12/06/16 15:34 (Restoril) 15 mg HS PRN PO 12/06/16 14:00 Sodium Chloride 1,000 ml @ 100 mls/hr Q10H IV 12/06/16 14:00 12/11/16 13:59 12/06/16 15:34 (Benadryl) 50 mg TRIPLE AIR VALVE TESTER PO 12/06/16 14:00 12/10/16 13:59 (Valium) 10 mg TRIPLE AIR VALVE TESTER PO 12/06/16 14:00 12/10/16 13:59 (Spiriva Inh) 18 mcg DAILY INH 12/07/16 09:00 (Ventolin Hfa Inh) 2 puff QID INH 12/06/16 18:00 Family History Father, sister - coronary artery disease Social History Patient has a history of tobacco use of a half pack per day since she was 15 years old. She denies any alcohol consumption or illicit drug use. Physical Exam Vital Signs Vital Signs Date Time Temp Pulse Resp B/P (MAP) Pulse Ox O2 Delivery O2 Flow Rate FiO2 12/06/16 11:01 61 23 139/59 (85) 96 Nasal Cannula 2.00 12/06/16 11:01 67 139/59 (85) 12/06/16 10:59 68 18 142/60 (87) 96 Nasal Cannula 2.00 12/06/16 10:59 68 142/60 (87) 96 Nasal Cannula 2.00 12/06/16 10:09 96 Nasal Cannula 2.00 12/06/16 10:09 18 96 Nasal Cannula 2.00 12/06/16 09:15 98.0 58 18 171/69 (103) 96 Physical Exam GENERAL: This is a well-nourished, well-developed patient, in no apparent distress. Sitting up in hospital bed asleep but easily awakens to voice. SKIN: No rashes, ecchymoses or lesions. Warm and dry. HEAD: Atraumatic. Normocephalic. No temporal or scalp tenderness. EYES: Pupils equal round and reactive. Extraocular motions intact. No scleral icterus. No injection or drainage. ENT: Nose without bleeding or purulent drainage. Throat without erythema, tonsillar hypertrophy or exudate. Uvula midline. Airway patent. NECK: Trachea midline. No lymphadenopathy. Supple, nontender, no meningeal signs. CARDIOVASCULAR: Regular rate and rhythm without murmurs, gallops, or rubs. RESPIRATORY: Diminished breath sounds with bibasilar crackles noted. GASTROINTESTINAL: Abdomen soft, non-tender, nondistended. No hepato-splenomegaly , or palpable masses. No guarding. MUSCULOSKELETAL: Extremities without clubbing or cyanosis. Trace bilateral lower extremity edema. No joint tenderness, effusion, or edema noted. No calf tenderness. NEUROLOGICAL: Awake and alert. Able to move all extremities spontaneously. No focal neurologic findings appreciated. Normal speech. Laboratory Laboratory Tests Test 12/06/16 09:31 12/06/16 13:13 White Blood Count 6.1 Red Blood Count 4.06 Hemoglobin 11.9 Hematocrit 35.9 Mean Corpuscular Volume 88.5 Mean Corpuscular Hemoglobin 29.2 Mean Corpuscular Hemoglobin Concent 33.0 Red Cell Distribution Width 14.3 Platelet Count 180 Mean Platelet Volume 9.6 Prothrombin Time 11.0 Prothromb Time International Ratio 1.0 Activated Partial Thromboplast Time 26.6 Blood Urea Nitrogen 17 Creatinine 0.94 Random Glucose 101 Calcium Level 8.4 Magnesium Level 2.0 Sodium Level 137 Potassium Level 4.1 Chloride Level 103 Carbon Dioxide Level 28.0 Anion Gap 6 Estimat Glomerular Filtration Rate 59 Total Creatine Kinase 49 44 Troponin I 0.42 0.42 Result Diagram: 12/06/1693012/06/16930 Imaging Last Impressions Chest X-Ray 12/06/16931 Signed Impressions: Service Date/Time: Tuesday, December 06, 2016 09:56 - CONCLUSION: Right lower lobe atelectasis versus infiltrate. MD Eugenio Haney Jr. VTE Risk Assessment Eugenio VTE Risk Assessment: Mod/High Risk (score >= 2) Caprini Risk Assessment Model Point Value = 1 Point Value = 2 Point Value = 3 Point Value = 5 Age 41-60 Minor surgery BMI > 25 kg/m2 Swollen legs Varicose veins or History of unexplained or recurrent spontaneous Oral contraceptives or hormone replacement Sepsis (< 1 month) Serious lung disease, including pneumonia (< 1 month) Abnormal pulmonary function Acute myocardial infarction Congestive heart failure (< 1 month) History of inflammatory bowel disease Medical patient at bed rest Age 61-74 Arthroscopic surgery Major open surgery (> 45 min) Laparoscopic surgery (> 45 min) Malignancy Confined to bed (> 72 hours) Immobilizing plaster cast Central venous access Age >= 75 History of VTE Family history of VTE Factor V Leiden Prothrombin [id number] Lupus anticoagulant Anticardiolipin antibodies Elevated serum homocysteine Heparin-induced thrombocytopenia Other congenital or acquired thrombophilia Stroke (< 1 month) Elective arthroplasty Hip, pelvis, or leg fracture Acute spinal cord injury (< 1 month) Prophylaxis Regimen Total Risk Factor Score Risk Level Prophylaxis Regimen 0-1 Low Early ambulation 2 Moderate Order ONE of the following: *Sequential Compression Device (SCD) *Heparin 5000 units SQ BID 3-4 Higher Order ONE of the following medications: *Heparin 5000 units SQ TID *Enoxaparin/Lovenox 40 mg SQ daily (WT < 150 kg, CrCl > 30 mL/min) *Enoxaparin/Lovenox 30 mg SQ daily (WT < 150 kg, CrCl > 10-29 mL/min) *Enoxaparin/Lovenox 30 mg SQ BID (WT < 150 kg, CrCl > 30 mL/min) AND/OR *Sequential Compression Device (SCD) 5 or more Highest Order ONE of the following medications: *Heparin 5000 units SQ TID (Preferred with Epidurals) *Enoxaparin/Lovenox 40 mg SQ daily (WT < 150 kg, CrCl > 30 mL/min) *Enoxaparin/Lovenox 30 mg SQ daily (WT < 150 kg, CrCl > 10-29 mL/min) *Enoxaparin/Lovenox 30 mg SQ BID (WT < 150 kg, CrCl > 30 mL/min) AND *Sequential Compression Device (SCD) Assessment and Plan Assessment and Plan 71-year-old female with a past medical history significant for coronary artery disease status post previous PR with prior CABG 5 vessels and previous cardiac stent implant 11, hypertension, COPD with ongoing tobaccoism, dyslipidemia and depression who presents to [facility] ED with complaints of chest pain. NSTEMI - EKG personally reviewed showing normal sinus rhythm, lateral T-wave changes - troponin elevated at 0.42 - Cardiology consulted while patient in the ED and plans for cardiac catheterization tomorrow - Continue on heparin drip - Continue daily aspirin and Plavix - Continue on atorvastatin 80 mg daily per home regimen - Continue on metoprolol 50 mg twice a day - Supplemental oxygen - Continuous cardiac monitoring - IV morphine and nitroglycerin sublingual when necessary chest pain CHF, mildly decompensated - Echocardiogram dated 03/14/16 reveals mildly reduced systolic function with EF of 45-50%, mild mitral and tricuspid valve regurgitation - Continue home Lasix 20 mg twice a day and potassium 20 meq daily - Monitor for signs of worsening fluid overload - obtain BNP - strict I&Os Hypertension - Continue on amlodipine 5 mg twice a day, metoprolol 50 mg twice a day - Home dose of isosorbide 30 mg daily held by cardiology - Monitor BP COPD with ongoing tobaccoism - Chest x-ray personally reviewed shows right lower lobe atelectasis versus infiltrate. - Discussed smoking cessation - Resume home bronchodilators. Duonebs as needed. - Monitor respiratory status - IS at bedside, encourage use Depression/Anxiety - Resume home dose of Prozac 20 mg twice a day - Xanax 0.25 mg every 8 when necessary DVT prophylaxis - Patient on heparin drip Discussed Condition With Patient, ED physician This note was transcribed by [email or web address] [Elinor Muñoz]. I, Dr. Laney Dewey personally performed the history, physical exam, and medical decision making; and confirmed the accuracy of the information in the transcribed note. Authenticated by Dr. Laney Dewey on 12/06/16 at 15:21. Physician Certification 2 Midnight Certification Type: Admission for Inpatient Services Order for Inpatient Services The services are ordered in accordance with Medicare regulations or non- Medicare payer requirements, as applicable. In the case of services not specified as inpatient-only, they are appropriately provided as inpatient services in accordance with the 2-midnight benchmark. Estimated LOS (days): 3 3 days is the estimated time the patient will need to remain in the hospital, assuming treatment plan goals are met and no additional complications. Post-Hospital Plan: Not yet determined Elinor Muñoz Dec 06, 2016 15:21 Laney Dewey MD Dec 06, 2016 15:29
[2016-12-06] MEDS: SODIUM CHLOR 0.9% 1000 ML INJ 1,000 ML IV SCH (15:34)
[2016-12-06] MEDS: POTASSIUM CHLORIDE 20 MEQ CONTROLLED RELEASE TAB PO SCH (15:34)
[2016-12-06] MEDS ORDERED: HEPARIN SODIUM - IV 10,000 UNITS/10 ML VIAL IV PRN ×2 (15:45)
[2016-12-06] MEDS: NITROGLYCERIN 0.4 MG SL 25 TABS/BTL SL PRN ×2 (16:00→16:58)
[2016-12-06] MEDS: MORPHINE SULFATE 4 MG/ML INJ IV PUSH PRN ×2 (16:00→17:41)
[2016-12-06] MEDS ORDERED: RESP: ALBUTEROL 2.5 MG/IPRATROPIUM 0.5 MG NEB (PRN) NEB (16:45)
[2016-12-06] MEDS: ALPRAZolam 0.5 MG TAB PO PRN ×2 (16:52→23:36)
[2016-12-06] MEDS: FLUoxetine HCL 20 MG CAP PO SCH ×2 (16:52→21:35)
[2016-12-06] MEDS: FUROSEMIDE 20 MG TAB PO SCH ×2 (16:52→21:00)
[2016-12-06] MEDS: CLOPIDOGREL 75 MG TAB PO SCH (16:52)
[2016-12-06] MEDS ORDERED: NITROGLYCERIN-D5W 50 MG/250 ML 250 ML ONE (17:32)
[2016-12-06] MEDS: ALBUTEROL SULFATE 90 MCG/ACT HFA 18 GM INHALER INH SCH (18:00)
[2016-12-06] MEDS ORDERED: NITROGLYCERIN/DEXTROSE 5% 250 ML for chest pain IV PRN (18:15)
[2016-12-06 19:54] LABS: APTT (PATIENT) 38.1 SEC (24.3-30.1)
[2016-12-06 20:00] LABS: BICARBONATE 27.6 MEQ/L (21.0-32.0); POTASSIUM 4.1 MEQ/L (3.5-5.1)
[2016-12-06 20:03] LABS: HDL CHOLESTEROL 49.4 MG/DL (40.0-60.0); INDIRECT BILIRUBIN 0.3 MG/DL (0.0-0.8); TOTAL BILIRUBIN ADULT 0.5 MG/DL (0.2-1.0)
[2016-12-06] MEDS: RESP: ALBUTEROL 2.5 MG/IPRATROPIUM 0.5 MG NEB (SCH) NEB (20:18)
[2016-12-06] MEDS ORDERED: ATORVASTATIN 10 MG TAB PO SCH (21:00)
[2016-12-06] MEDS: METOPROLOL TARTRATE 50 MG TAB PO SCH (21:35)
[2016-12-06] MEDS: ATORVASTATIN 80 MG TAB PO SCH (21:35)
[2016-12-06] MEDS ORDERED: CHLORHEXIDINE GLUCONATE 2 % 1 PACK (2 CLOTHS)(extra cloths) TOPICAL PRN (21:45)
[2016-12-06] MEDS: ALBUTEROL SULFATE 90 MCG/ACT HFA 8 GM INHALER INH PRN (23:29)
[2016-12-07] VITALS (20 sets, daily range): BP systolic 107–177; BP diastolic 57–76; PULSE 63–135; RESP 13–24; TEMP 97.1–98.9; O2SAT 93–100
[2016-12-07] MEDS: RESP: ALBUTEROL 2.5 MG/IPRATROPIUM 0.5 MG NEB (PRN) NEB ×4 (02:33→10:52)
[2016-12-07] MEDS ORDERED: FUROSEMIDE 20 MG/2 ML VIAL IV PUSH ONE (03:00)
[2016-12-07] MEDS ORDERED: methylPREDNISolone SOD SUCC 125 MG/2 ML VIAL IV PUSH ONE (03:00)
[2016-12-07] MEDS ORDERED: PROPOFOL 500 MG/50 ML INJ 50 ML ONE ×3 (03:19→08:10)
[2016-12-07] MEDS ORDERED: ETOMIDATE 40 MG/20 ML VIAL ONE (03:24)
[2016-12-07] MEDS ORDERED: ROCURONIUM INJ 50 MG/5 ML VIAL ONE (03:25)
--- NOTE | 2016-12-07 03:54 | PD.CONS ---
[facility] Service Critical Care Medicine Consult Requested By Dr. Aviles Reason for Consult Trickle care management of acute respiratory failure Primary Care Physician No Primary Care Physician History of Present Illness Unable to obtain history from patient directly as she was unresponsive when I arrived to bedside and is now intubated. 71-year-old female with past medical history of coronary artery disease with prior stents and CABG, hypertension, hyperlipidemia, COPD, GERD, ongoing tobacco abuse who presented to [facility] emergency department at around 9 AM on 12/06 with crushing chest pain radiating to her left arm that awoke her from sleep at 5 am associated with shortness of breath. This was associated with diaphoresis. She tried bronchodilators without improvement. She then took nitroglycerin and her chest pain resolved. She then later tried to ambulate and chest pain recurred so she took another nitroglycerin and then contacted [facility]. She denied nausea or vomiting. Denied syncope. She was admitted to [facility] service and placed on aspirin, nitroglycerin, heparin drip. Serial troponins 0.4. EKG with inferior q waves and T wave inversions II, III, AVF, V4-V6 Findings in inferior leads were seen on prior EKG 03/14. She was evaluated by Dr. Ramon who is planning to do cardiac catheterization later this morning due to unstable angina. I was called emergently by her nurse. Apparently patient transitioned herself to bedside commode and became acutely severely short of breath, tachycardic, hypertensive in 200s and then became unresponsive. RT had attempted to intubate because patient was apneic but was unable to intubate without sedation. I came to bedside and intubated the patient. She has severely diminished breath sounds bilaterally with severe bronchospasm. She has just received lasix 20 mg IV and Solumedrol 125 mg IV per hospitalist order. Adding continuous duoneb x3. Repeat EKG stat shows no acute changes. ABG post emergent intubation is hypercapnic Review of Systems ROS Limitations: Clinical Condition, Intubated Past Family Social History Allergies: Coded Allergies: lisinopril (Unverified Allergy, Severe, Cough, 12/06/16) PERSISTENT COUGH codeine (Unverified Allergy, Mild, NAUSEA, 12/06/16) PATIENT STATES SHE IS NOT ALLERGIC TO MEDICATION cephalexin (Unverified Allergy, Unknown, Nausea/Vomiting, 12/06/16) fluticasone (Unverified Allergy, Unknown, 12/06/16) THROAT SWELLING fluticasone furoate (Unverified Allergy, Unknown, 12/06/16) THROAT SWELLING salmeterol (Unverified Allergy, Unknown, 12/06/16) THROAT SWELLING Past Medical History CAD status post previous RI with prior CABG and cardiac stent implants 11 COPD with ongoing tobacco abuse Hypertension Dyslipidemia Depression Past Surgical History CABG 5 vessels Cardiac stent implant 11 LAP-BAND surgery Hysterectomy Bladder suspension surgery Benign breast lumpectomy Reported Medications Combivent 1 puff inhaled twice a day Albuterol 2 puffs inhaled every 4-6 hours as needed for shortness of breath Plavix 75 mg by mouth daily Atorvastatin 80 mg by mouth daily at bedtime Isosorbide mononitrate 30 mg by mouth daily Metoprolol 50 mg by mouth twice a day Norvasc 5 mg by mouth twice a day Hydrocodone 5/325 one by mouth every 6 hours as needed for pain Prozac 20 mg by mouth twice a day Xanax 0.5 mill grams by mouth 3 times a day Temazepam 15 mill grams by mouth daily at bedtime Potassium chloride 20 mEq by mouth daily Lasix 20 g by mouth twice a day Family History Unable to obtain from patient due to clinical condition. Reviewed EMR. Father, sister - coronary artery disease Social History Unable to obtain directly from patient due to clinical condition. Patient has a history of tobacco use of a half pack per day since she was 15 years old. She denies any alcohol consumption or illicit drug use. Physical Exam Vital Signs Vital Signs Date Time Temp Pulse Resp B/P (MAP) Pulse Ox O2 Delivery O2 Flow Rate FiO2 12/07/16 02:34 93 Simple Mask 10.00 12/07/16 02:00 135 12/07/16 00:00 80 12/06/16 23:39 98.6 80 24 182/73 (109) 95 12/06/16 22:00 80 12/06/16 20:19 96 Nasal Cannula 2.00 12/06/16 20:00 98.0 83 26 171/77 (108) 89 12/06/16 20:00 79 12/06/16 17:32 66 166/73 12/06/16 16:00 98.1 80 36 216/88 (130) 98 12/06/16 15:34 64 21 170/74 (106) 98 Nasal Cannula 2.00 12/06/16 11:01 61 23 139/59 (85) 96 Nasal Cannula 2.00 12/06/16 11:01 67 139/59 (85) 12/06/16 10:59 68 18 142/60 (87) 96 Nasal Cannula 2.00 12/06/16 10:59 68 142/60 (87) 96 Nasal Cannula 2.00 12/06/16 10:09 96 Nasal Cannula 2.00 12/06/16 10:09 18 96 Nasal Cannula 2.00 12/06/16 09:15 98.0 58 18 171/69 (103) 96 Physical Exam GENERAL: Well-nourished, well-developed patient who was initially laying in IMC bed with agonal respirations being bagged by RT. Now status post emergent intubation. SKIN: Warm and dry. HEAD: Atraumatic. Normocephalic. EYES: Pupils equal and round, 2 mm and reactive bilaterally.. No scleral icterus. No injection or drainage. ENT: No nasal bleeding or discharge. Mucous membranes pink and moist. NECK: Trachea midline. No JVD. CARDIOVASCULAR: Tachycardic, regular, sinus tach on the monitor with rate in the 120s. (improved to 80s after intubation and sedation) No murmurs rubs or gallops. RESPIRATORY: Breath sounds severely diminished bilaterally. Bibasilar Rales with no rhonchi. GASTROINTESTINAL: Abdomen soft, non-tender, nondistended. Bowel sounds present. : Sue in place with very pale yellow urine output. MUSCULOSKELETAL: Extremities without clubbing, cyanosis or significant peripheral edema. NEUROLOGICAL: Pupils reactive, withdraws with all extremities, + gag Laboratory Laboratory Tests Test 12/06/16 09:31 12/06/16 13:13 12/06/16 15:55 12/06/16 19:00 White Blood Count 6.1 Red Blood Count 4.06 Hemoglobin 11.9 Hematocrit 35.9 Mean Corpuscular Volume 88.5 Mean Corpuscular Hemoglobin 29.2 Mean Corpuscular Hemoglobin Concent 33.0 Red Cell Distribution Width 14.3 Platelet Count 180 Mean Platelet Volume 9.6 Prothrombin Time 11.0 Prothromb Time International Ratio 1.0 Activated Partial Thromboplast Time 26.6 38.1 Blood Urea Nitrogen 17 15 Creatinine 0.94 0.93 Random Glucose 101 80 Calcium Level 8.4 8.8 Magnesium Level 2.0 Sodium Level 137 136 Potassium Level 4.1 4.1 Chloride Level 103 103 Carbon Dioxide Level 28.0 27.6 Anion Gap 6 5 Estimat Glomerular Filtration Rate 59 60 Total Creatine Kinase 49 44 47 Troponin I 0.42 0.42 0.42 Nasal Screen MRSA (PCR) MRSA NOT DETECTED Total Bilirubin 0.5 Direct Bilirubin 0.2 Indirect Bilirubin 0.3 Aspartate Amino Transf (AST/SGOT) 18 Alanine Aminotransferase (ALT/SGPT) 23 Alkaline Phosphatase 107 Total Protein 7.0 Albumin 3.8 Triglycerides Level 115 Cholesterol Level 172 LDL Cholesterol 100 HDL Cholesterol 49.4 Cholesterol/HDL Ratio 3.48 Test 12/07/16 01:06 Total Creatine Kinase 51 Troponin I 0.43 Result Diagram: 12/06/1631 12/06/16 1900 Assessment and Plan Assessment and Plan NEURO: Unresponsive Depression Anxiety Propofol for sedation. Fentanyl added for ventilator synchrony. Target RASS -[address] brain to evaluate for hemorrhage, though neurologic event less likely. Suspect alteration in mental status due to hypercapnea. prozac 20 mg po bid. Xanax 0.5 mg by mouth every 8 hours as needed for anxiety RESP: Acute hypercapnic respiratory failure COPD Tobacco abuse Intubated emergently. ACV TV 550/R 16 / PEEP 5/FiO2 100%. Adjusted tidal volume to 600. Permissive hypercapnia with avoidance of high respiratory rate due to current severe bronchospasm. Duoneb stat. Solumedrol 125 mg IV given per hospitalist and continue 60 mg IV q6 hours. CXR with interstitial opacities. May have had component of flash pulmonary edema in setting of severe hypertension. CV: Coronary artery disease with prior stents and 5 vessel CABG Chronic systolic heart failure Hypertension Hyperlipidemia Continue NTG drip 20 mcg/min, Heparin drip, plavix, atorvastatin 80 mg daily, metoprolol 50 bid. Echo 03/14/16EF 45-50%. No regional wall motion abnormalities. Pulmonary artery systolic pressure 35 mmHg. GI: NPO. FEN/RENAL: FRANSISCO Hyperkalemia Hyponatremia Sue in place. Monitor intake and output. Monitor I light. Replace electrolytes as clinically indicated. Lasix 20 mg IV x1 given. Will continue 20 mg IV q12. ID: Monitor for signs and symptoms of infection. HEME no acute hematologic issues. On heparin drip. ENDO: Low-dose insulin sliding scale with bedside glucose every 6 hours PROPH: Heparin drip will provide DVT prophylaxis. Famotidine for stress ulcer prophylaxis ACCESS: Peripheral IV providing adequate access at this time. Followup up after nebs and patient has bilateral breath sounds with much improved air movement bilaterally and now synchronous with mechanical ventilation on current sedation. Discussed with bedside RN CCT 60 minutes exclusive of separately billable procedures. Gila Rodriguez MD Dec 07, 2016 03:54
[2016-12-07 03:55] LABS: AUTOMATED NEUTROPHIL # 10.2 TH/MM3 (1.8-7.7); BASOPHIL % 0.4 % (0.0-2.0); EOSINOPHIL # 0.1 TH/MM3 (0-0.4); EOSINOPHIL % 1.2 % (0.0-4.0); HEMO FLAGS DIFF FINAL; LYMPHOCYTE # 1.5 TH/MM3 (1.0-4.8); MEAN CELL VOLUME 89.8 FL (80.0-100.0); MEAN CORPUSCULAR HGB CONC 32.3 % (32.0-36.0); MONO % 2.7 % (0.0-8.0); NEUT % 83.7 % (16.0-70.0); PLATELET COUNT 216 TH/MM3 (150-450); RED BLOOD COUNT 4.56 MIL/MM3 (4.00-5.30); RED CELL DISTRIBUTION WIDTH 14.4 % (11.6-17.2); WHITE BLOOD COUNT 12.1 TH/MM3 (4.0-11.0)
[2016-12-07] MEDS: CHLORHEXIDINE GLUCONATE 2 % 1 PACK (2 CLOTHS)(taper/protocol) TOPICAL SCH (04:00)
[2016-12-07 04:15] LABS: APTT (PATIENT) 29.4 SEC (24.3-30.1)
[2016-12-07 04:18] LABS: BICARBONATE 28.3 MEQ/L (21.0-32.0); POTASSIUM 5.2 MEQ/L (3.5-5.1)
[2016-12-07 04:30] LABS: BLOOD GAS BASE EXCESS -0.3 mmol/L (-2-2); BLOOD GAS CARBOXYHEMOGLOBIN 1.5 % (0-4); BLOOD GAS HCO3 27 mmol/L (22-26); BLOOD GAS METHEMOGLOBIN 1.2 % (0-2); BLOOD GAS O2 HGB SATURATION 97 % (90-100); BLOOD GAS OXYGEN CONTENT 18.1 Vol % (12.0-20.0); BLOOD GAS PCO2 66 mmHg (38-42); BLOOD GAS PO2 203 mmHg (61-120); CRITICAL VALUE YES; FIO2 100 %; OXYGEN DEVICE VENTILATOR; TEMP CORR TO 98.6; VENT SETTINGS VAC16/550/PEEP 5
[2016-12-07 04:31] LABS: DRAW SITE LT RADIAL; NUMBER OF ARTERIAL PUNCTURES 1; STAT YES; ULNAR PULSE PRESENT
[2016-12-07] MEDS ORDERED: RESP: ALBUTEROL 2.5 MG/IPRATROPIUM 0.5 MG NEB (SCH) NEB ONE (04:45)
--- NOTE | 2016-12-07 04:50 | RADRPT ---
EXAM DATE/TIME: 12/07/2016 03:39 [place] COMPARISON: CHEST SINGLE AP, December 06, 2016, 9:56. INDICATIONS : E-T Tube placement. MEDICAL HISTORY : Cardiovascular disease. Chronic obstructive pulmonary disease. Hypertension. SURGICAL HISTORY : CABG. Hysterectomy. Coronary artery stent. ENCOUNTER: Subsequent ACUITY: 2 days PAIN SCORE: Non-responsive. LOCATION: Bilateral chest FINDINGS: Endotracheal tube is present with tip 5-6 cm above the jose. There is diffuse interstitial opacity which likely reflects developing edema. Cardiac contours are stable.. CONCLUSION: Developing diffuse interstitial process. Quentin Eddy MD on December 07, 2016 at 4:43 Board Certified Radiologist. This report was verified electronically.
[2016-12-07 05:32] LABS: BLOOD GAS BASE EXCESS -0.8 mmol/L (-2-2); BLOOD GAS CARBOXYHEMOGLOBIN 1.6 % (0-4); BLOOD GAS HCO3 26 mmol/L (22-26); BLOOD GAS METHEMOGLOBIN 1.2 % (0-2); BLOOD GAS O2 HGB SATURATION 90 % (90-100); BLOOD GAS OXYGEN CONTENT 15.8 Vol % (12.0-20.0); BLOOD GAS PCO2 64 mmHg (38-42); BLOOD GAS PO2 74 mmHg (61-120); BLOOD GAS TOTAL HGB 12.5 G/DL (12.0-16.0); TEMP CORR TO 98.6
[2016-12-07 05:33] LABS: CRITICAL VALUE YES; DRAW SITE RT BRACHIAL; FIO2 60 %; NUMBER OF ARTERIAL PUNCTURES 1; OXYGEN DEVICE VENTILATOR; VENT SETTINGS VAC16/600/PEEP 5
[2016-12-07 05:34] LABS: STAT NO; ULNAR PULSE PRESENT
[2016-12-07] MEDS ORDERED: DEXTROSE 50% IN WATER 50 ML VIAL(D50) IV PUSH PRN (06:45)
[2016-12-07] MEDS: INSULIN ASPART SUPPLEMENTAL SCALE SQ SCH ×3 (06:45→18:45)
[2016-12-07] MEDS ORDERED: GLUCAGON 1 MG/ML VIAL OTHER PRN (06:45)
[2016-12-07] MEDS ORDERED: fentaNYL DRIP 250 ML IV PRN (07:15)
[2016-12-07] MEDS: RESP: ALBUTEROL 2.5 MG/IPRATROPIUM 0.5 MG NEB (SCH) NEB ×3 (08:09→20:35)
--- NOTE | 2016-12-07 08:38 | PD.CARD.PN ---
Subjective Subjective Remarks Intubated. Sedated. Objective Medications Item Value Date Time Furosemide 20 mg 12/07/16 0900 (Lasix Inj) BID@18/IV PUSH Atorvastatin 80 mg 12/06/16 2100 Calcium HS/PO 12/06/162134 (Lipitor) Metoprolol 50 mg 12/06/16 2100 Tartrate BID/PO 12/06/16 213 (Lopressor) Nitroglycerin/ 250 ml @ 3 mls/hr 12/06/16 1815 Dextrose TITRATE PRN/IV Clopidogrel 75 mg 12/06/16 1600 Bisulfate DAILY/PO 12/06/16 165 (Plavix) Amlodipine 5 mg 12/06/16 1500 Besylate BID/PO 12/06/16 213 (Norvasc) Potassium Chloride 20 meq 12/06/16 1400 (KCl) DAILY/PO 12/06/16 1534 Heparin Sodium/ 250 ml @ 8 mls/hr 12/06/16 0945 Dextrose TITRATE ONCE/IV 12/06/16 1238 Current Medications Medications (Trade) Dose Ordered Sig/Samy Route Start Time Stop Time Status Last Admin (NS Flush) 2 ml UNSCH PRN IVF 12/06/16 09:45 (Heparin Inj) 5,000 units UNSCH PRN IV 12/06/16 15:45 (Heparin Inj) 2,500 units UNSCH PRN IV 12/06/16 15:45 12/07/16 05:06 Heparin Sodium/ Dextrose 250 ml @ 8 mls/hr TITRATE ONCE IV 12/06/16 09:45 12/07/16 16:59 12/06/16 12:38 (Nitrostat Sl) 0.4 mg Q5M PRN SL 12/06/16 12:15 12/06/16 16:58 (Morphine Inj) 2 mg Q30M PRN IV PUSH 12/06/16 12:15 12/06/16 17:41 (Proair Hfa Inh) 2 puff Q4HR NEB PRN INH 12/06/16 14:00 12/06/16 23:29 (Xanax) 0.5 mg Q8H PRN PO 12/06/16 14:00 12/06/16 23:36 (Norvasc) 5 mg BID PO 12/06/16 15:00 12/06/16 21:35 (Lipitor) 80 mg HS PO 12/06/16 21:00 12/06/16 21:35 (Plavix) 75 mg DAILY PO 12/06/16 16:00 12/06/16 16:52 (PROzac) 20 mg BID PO 12/06/16 16:00 12/06/16 21:35 ([place] 5-325 Mg) 1 tab Q6H PRN PO 12/06/16 14:00 (Lopressor) 50 mg BID PO 12/06/16 21:00 12/06/16 21:35 (KCl) 20 meq DAILY PO 12/06/16 14:00 12/06/16 15:34 (Restoril) 15 mg HS PRN PO 12/06/16 14:00 Sodium Chloride 1,000 ml @ 100 mls/hr Q10H IV 12/06/16 14:00 12/11/16 13:59 12/06/16 15:34 (Benadryl) 50 mg TIGHTENING MACHINE OPERATOR PO 12/06/16 14:00 12/10/16 13:59 (Valium) 10 mg TIGHTENING MACHINE OPERATOR PO 12/06/16 14:00 12/10/16 13:59 (Spiriva Inh) 18 mcg DAILY INH 12/07/16 09:00 (Ventolin Hfa Inh) 2 puff QID INH 12/06/16 18:00 (Duoneb Neb) 1 ampule QID NEB NEB 12/06/16 20:00 12/07/16 08:09 (Duoneb Neb) 1 ampule Q2HR NEB PRN NEB 12/06/16 17:00 12/07/16 04:56 Nitroglycerin/ Dextrose 250 ml @ 3 mls/hr TITRATE PRN IV 12/06/16 18:15 (Flu (Quadrivalent) Vaccine Inj) 0.5 ml ONCE ONCE IM 12/07/16 10:00 12/07/16 10:01 Miscellaneous Information Patient in critical care unit? Ass... Q361D .XX 12/06/16 21:45 (Chlorhexidine 2% Cloth) 3 pack DAILY@04 TOPICAL 12/07/16 04:00 12/11/16 04:01 (Chlorhexidine 2% Cloth) 3 pack UNSCH PRN TOPICAL 12/06/16 21:45 12/11/16 21:41 (Peridex 0.12% Liq) 15 ml BID@08,20 MT 12/07/16 08:00 (SoluMEDROL INJ) 60 mg Q6H IV PUSH 12/07/16 09:00 (D50w (Vial) Inj) 50 ml UNSCH PRN IV PUSH 12/07/16 06:45 (Glucagon Inj) 1 mg UNSCH PRN OTHER 12/07/16 06:45 (NovoLOG SUPPLEMENTAL SCALE) 1 Q6H SQ 12/07/16 06:45 Fentanyl Citrate 250 ml @ 5 mls/hr TITRATE PRN IV 12/07/16 07:15 (Lasix Inj) 20 mg BID@09,18 IV PUSH 12/07/16 09:00 Vital Signs / I&O Vital Signs Date Time Temp Pulse Resp B/P (MAP) Pulse Ox O2 Delivery O2 Flow Rate FiO2 12/07/16 08:10 100 45 12/07/16 06:00 78 12/07/16 04:00 82 12/07/16 04:00 98.9 82 16 141/64 (89) 100 12/07/16 03:35 100 100 12/07/16 02:34 93 Simple Mask 10.00 12/07/16 02:00 135 12/07/16 00:00 80 12/06/16 23:39 98.6 80 24 182/73 (109) 95 12/06/16 22:00 80 12/06/16 20:19 96 Nasal Cannula 2.00 12/06/16 20:00 98.0 83 26 171/77 (108) 89 12/06/16 20:00 79 12/06/16 17:32 66 166/73 12/06/16 16:00 98.1 80 36 216/88 (130) 98 12/06/16 15:34 64 21 170/74 (106) 98 Nasal Cannula 2.00 12/06/16 11:01 61 23 139/59 (85) 96 Nasal Cannula 2.00 12/06/16 11:01 67 139/59 (85) 12/06/16 10:59 68 18 142/60 (87) 96 Nasal Cannula 2.00 12/06/16 10:59 68 142/60 (87) 96 Nasal Cannula 2.00 12/06/16 10:09 96 Nasal Cannula 2.00 12/06/16 10:09 18 96 Nasal Cannula 2.00 10/11/17 09:15 98.0 58 18 171/69 (103) 96 I/O 12/06/16 12/06/16 12/06/16 12/07/16 12/07/16 12/07/16 07:00 15:00 23:00 07:00 15:00 23:00 Intake Total 511 ml 600 ml Output Total 420 ml Balance 511 ml 180 ml Intake Oral 100 ml 150 ml IV Total 411 ml 450 ml Output Urine Total 420 ml # Bowel Movements 0 Physical Exam GENERAL: Intubated. Sedated. HEENT: Jugular venous pressure is normal. CHEST: Lungs clear to auscultation anteriorly. CARDIAC: Regular rate and rhythm without S3, S4, or murmur. ABDOMEN: Soft, nontender, no hepatosplenomegaly. Bowel sounds present. EXTREMITIES: No clubbing, cyanosis, or edema. Laboratory Laboratory Tests Test 12/06/16 09:31 12/06/16 13:13 12/06/16 15:55 12/06/16 19:00 White Blood Count 6.1 TH/MM3 Red Blood Count 4.06 MIL/MM3 Hemoglobin 11.9 GM/DL Hematocrit 35.9 % Mean Corpuscular Volume 88.5 FL Mean Corpuscular Hemoglobin 29.2 PG Mean Corpuscular Hemoglobin Concent 33.0 % Red Cell Distribution Width 14.3 % Platelet Count 180 TH/MM3 Mean Platelet Volume 9.6 FL Prothrombin Time 11.0 SEC Prothromb Time International Ratio 1.0 RATIO Activated Partial Thromboplast Time 26.6 SEC 38.1 SEC Blood Urea Nitrogen 17 MG/DL 15 MG/DL Creatinine 0.94 MG/DL 0.93 MG/DL Random Glucose 101 MG/DL 80 MG/DL Calcium Level 8.4 MG/DL 8.8 MG/DL Magnesium Level 2.0 MG/DL Sodium Level 137 MEQ/L 136 MEQ/L Potassium Level 4.1 MEQ/L 4.1 MEQ/L Chloride Level 103 MEQ/L 103 MEQ/L Carbon Dioxide Level 28.0 MEQ/L 27.6 MEQ/L Anion Gap 6 MEQ/L 5 MEQ/L Estimat Glomerular Filtration Rate 59 ML/MIN 60 ML/MIN Total Creatine Kinase 49 U/L 44 U/L 47 U/L Troponin I 0.42 NG/ML 0.42 NG/ML 0.42 NG/ML Nasal Screen MRSA (PCR) MRSA NOT DETECTED Total Bilirubin 0.5 MG/DL Direct Bilirubin 0.2 MG/DL Indirect Bilirubin 0.3 MG/DL Aspartate Amino Transf (AST/SGOT) 18 U/L Alanine Aminotransferase (ALT/SGPT) 23 U/L Alkaline Phosphatase 107 U/L Total Protein 7.0 GM/DL Albumin 3.8 GM/DL Triglycerides Level 115 MG/DL Cholesterol Level 172 MG/DL LDL Cholesterol 100 MG/DL HDL Cholesterol 49.4 MG/DL Cholesterol/HDL Ratio 3.48 RATIO Test 12/07/16 01:06 12/07/16 03:47 12/07/16 04:09 12/07/16 05:11 Total Creatine Kinase 51 U/L Troponin I 0.43 NG/ML White Blood Count 12.1 TH/MM3 Red Blood Count 4.56 MIL/MM3 Hemoglobin 13.2 GM/DL Hematocrit 41.0 % Mean Corpuscular Volume 89.8 FL Mean Corpuscular Hemoglobin 29.0 PG Mean Corpuscular Hemoglobin Concent 32.3 % Red Cell Distribution Width 14.4 % Platelet Count 216 TH/MM3 Mean Platelet Volume 9.3 FL Neutrophils (%) (Auto) 83.7 % Lymphocytes (%) (Auto) 12.0 % Monocytes (%) (Auto) 2.7 % Eosinophils (%) (Auto) 1.2 % Basophils (%) (Auto) 0.4 % Neutrophils # (Auto) 10.2 TH/MM3 Lymphocytes # (Auto) 1.5 TH/MM3 Monocytes # (Auto) 0.3 TH/MM3 Eosinophils # (Auto) 0.1 TH/MM3 Basophils # (Auto) 0.0 TH/MM3 CBC Comment DIFF FINAL Differential Comment Activated Partial Thromboplast Time 29.4 SEC Blood Urea Nitrogen 18 MG/DL Creatinine 1.22 MG/DL Random Glucose 198 MG/DL Calcium Level 8.6 MG/DL Sodium Level 135 MEQ/L Potassium Level 5.2 MEQ/L Chloride Level 100 MEQ/L Carbon Dioxide Level 28.3 MEQ/L Anion Gap 7 MEQ/L Estimat Glomerular Filtration Rate 44 ML/MIN Blood Gas Puncture Site LT RADIAL RT BRACHIAL Blood Gas Patient Temperature 98.6 98.6 Blood Gas HCO3 27 mmol/L 26 mmol/L Blood Gas Base Excess -0.3 mmol/L -0.8 mmol/L Blood Gas Oxygen Saturation 97 % 90 % Arterial Blood pH 7.23 7.23 Arterial Blood Partial Pressure CO2 66 mmHg 64 mmHg Arterial Blood Partial Pressure O2 203 mmHg 74 mmHg Arterial Blood Oxygen Content 18.1 Vol % 15.8 Vol % Arterial Blood Carboxyhemoglobin 1.5 % 1.6 % Arterial Blood Methemoglobin 1.2 % 1.2 % Blood Gas Hemoglobin 13.0 G/DL 12.5 G/DL Oxygen Delivery Device VENTILATOR VENTILATOR Blood Gas Ventilator Setting VAC16/550/PEEP 5 VAC16/600/PEEP 5 Blood Gas Inspired Oxygen 100 % 60 % Imaging Last 24 hours Impressions Chest X-Ray 12/07/16 0000 Signed Impressions: Service Date/Time: November 03:39 - CONCLUSION: Developing diffuse interstitial process. Quentin Eddy MD Chest X-Ray 12/06/16 0932 Signed Impressions: Service Date/Time: Tuesday, December 06, 2016 09:56 - CONCLUSION: Right lower lobe atelectasis versus infiltrate. Guilherme Kwan Jr., MD Assessment and Plan Problem List: (1) CAD (coronary artery disease) ICD Codes: I25.10 - CAD (coronary artery disease) Status: Chronic Plan: Intubated due to increasing respiratory distress and unresponsiveness. Cardiac status overall appears stable. CP's on admission possibly noncardiac in origin; despite considerable CP in the 24 hours prior to admission, CK's negative for SC. Repeat EKG overall unchanged. REC consider nuclear stress test once extubated continue current medical regimen (2) Hypertension, benign ICD Codes: I10 - Hypertension, benign Status: Chronic Plan: Fluctuating BP's. Continue to monitor. (3) Hyperlipidemia ICD Codes: E78.5 - Hyperlipidemia Status: Chronic Plan: Overall suboptimal lipid profile on high dose atorvastatin. Rec consider change to Crestor as outpatient. Code Status full code Problem Qualifiers (1) CAD (coronary artery disease): Qualified Codes: I25.119 - Atherosclerotic heart disease of [place] coronary artery with unspecified angina pectoris (2) Hyperlipidemia: Qualified Codes: E78.2 - Mixed hyperlipidemia Fidencio Ramon MD Dec 07, 2016 08:38
[2016-12-07] MEDS: amLODIPine BESYLATE 5 MG TAB PO SCH ×2 (09:00→20:57)
[2016-12-07] MEDS: FUROSEMIDE 20 MG/2 ML VIAL IV PUSH SCH ×2 (09:00→17:56)
[2016-12-07] MEDS: methylPREDNISolone SOD SUCC 125 MG/2 ML VIAL IV PUSH SCH ×3 (09:00→20:58)
[2016-12-07] MEDS: POTASSIUM CHLORIDE 20 MEQ CONTROLLED RELEASE TAB PO SCH (09:00)
[2016-12-07] MEDS: TIOTROPIUM BROMIDE 18 MCG INH INH SCH (09:00)
[2016-12-07] MEDS: CLOPIDOGREL 75 MG TAB PO SCH (09:01)
[2016-12-07] MEDS: METOPROLOL TARTRATE 50 MG TAB PO SCH ×2 (09:01→20:57)
[2016-12-07] MEDS: FLUoxetine HCL 20 MG CAP PO SCH ×2 (09:01→20:57)
[2016-12-07] MEDS: CHLORHEXIDINE 0.12% (ORAL KIT) 15 ML CUP MT SCH ×2 (09:03→20:00)
--- NOTE | 2016-12-07 09:38 | PD.PROCEDR ---
Procedure Note Procedure PROCEDURE NOTE PROCEDURE: Endotracheal intubation INDICATION: Acute respiratory failure DETAILS OF PROCEDURE: The patient was placed in optimal position and preoxygenated with 100% FiO2 via [id number]. Oximeter oxygen saturation of 97% was obtained prior to laryngoscopy. The patient was administered etomidate 20 mg IV for sedation and rocuronium 50 g IV. Laryngoscopy was performed with a 4 glide scope and a grade 1 Cormack-Lehane view was obtained. On single attempt a size 7.5 endotracheal tube was visualized passing through the cords. Correct placement was confirmed with colorimetric CO2 detector. Breath sounds were equal bilaterally. No sounds auscultated over the stomach. The endotracheal tube was secured with a commercial tube vargas at a depth of 23 cm at the lips. The patient was connected to the ventilator. The patient tolerated the procedure well without any apparent complication. Oxygen saturations were maintained greater than 90% at all times. Stat chest x-ray was ordered and demonstrates satisfactory endotracheal tube position Gila Rodriguez MD Dec 07, 2016 09:38
[2016-12-07] MEDS ORDERED: INFLUENZA VIRUS VACCINE (QUADRIVALENT) 0.5 ML SYR IM ONE (10:00)
[2016-12-07] MEDS ORDERED: PROPOFOL 1000 MG/100 ML IV PRN (11:00)
[2016-12-07] MEDS ORDERED: IOHEXOL 350 MG/ML 10 ML VIAL (for RAD DIAG) IVCONTRAST ONE (11:31)
--- NOTE | 2016-12-07 11:37 | RADRPT ---
EXAM DATE/TIME: 12/07/2016 11:16 [facility] COMPARISON: CT PULMONARY ANGIOGRAM, March 28, 2016, 17:10. INDICATIONS : Respiratory ditress,decreasing responsivness. IV CONTRAST: 50 cc Omnipaque 350 (iohexol) IV RADIATION DOSE: 23.21 CTDIvol (mGy) MEDICAL HISTORY : Cardiovascular disease. Hypertension. Chronic obstructive pulmonary disease. SURGICAL HISTORY : CABG Hysterectomy. ENCOUNTER: Initial ACUITY: 1 day PAIN SCALE: Non-responsive LOCATION: chest TECHNIQUE: Volumetric scanning of the chest was performed using a pulmonary embolism protocol MIP images were re constructed. Using automated exposure control and adjustment of the mA and/or kV according to patien t size, radiation dose was kept as low as reasonably achievable to obtain optimal diagnostic quality images. DICOM format image data is available electronically for review and comparison. Follow-up recommendations for detected pulmonary nodules are based at a minimum on nodule size and pa tient risk factors according to Fleischner Society Guidelines. FINDINGS: PULMONARY ARTERIES: No filling defects are seen in the pulmonary arteries through the segmental level. LUNGS: Upper lobe interstitial prominence suggesting mild congestion is noted. Segmental and lobar airspace disease is seen in both lower lobes. There are small bilateral effusions. Endotracheal tube is in sta ble position. PLEURAE: Small bilateral effusions MEDIASTINUM: Heart is mildly enlarged. Extensive calcific coronary disease is noted. MUSCULOSKELETAL: Within normal limits for patient age. MISCELLANEOUS: Left hand is identified in place. Significant fluid accumulation is identified in the stomach. Nasoga stric tube is noted in place. The visualized upper abdominal organs demonstrate no acute abnormality. CONCLUSION: 1. No evidence of pulmonary embolism. 2. Upper lobe interstitial prominence suggesting mild interstitial edema. 3. Consolidating airspace disease with small bilateral effusions in both lower lobes. 4. Calcific coronary artery disease. 5. Fluid filled stomach with indwelling nasogastric tube. Silvestre Storey MD on December 07, 2016 at 11:31 Board Certified Radiologist. This report was verified electronically.
--- NOTE | 2016-12-07 11:41 | RADRPT ---
EXAM DATE/TIME: 12/07/2016 11:12 [facility] COMPARISON: CT PULMONARY ANGIOGRAM, March 28, 2016, 17:10. INDICATIONS : Altered mental status RADIATION DOSE: 52.92 CTDIvol (mGy) MEDICAL HISTORY : Cardiovascular disease. Hypertension. Chronic obstructive pulmonary disease. SURGICAL HISTORY : CABG Hysterectomy. ENCOUNTER: Initial ACUITY: 1 day PAIN SCALE: Non-responsive LOCATION: cranial TECHNIQUE: Multiple contiguous axial images were obtained of the head. Using automated exposure control and adj ustment of the mA and/or kV according to patient size, radiation dose was kept as low as reasonably a chievable to obtain optimal diagnostic quality images. DICOM format image data is available electro nically for review and comparison. FINDINGS: CEREBRUM: The ventricles are normal for age. No evidence of midline shift, mass lesion, hemorrhage or acute in farction. No extra-axial fluid collections are seen. POSTERIOR FOSSA: The cerebellum and brainstem are intact. The 4th ventricle is midline. The cerebellopontine angle i s unremarkable. EXTRACRANIAL: The visualized portion of the orbits is intact. SKULL: The calvaria is intact. No evidence of skull fracture. CONCLUSION: 1. No acute intracranial abnormality identified. Wayne Jimenze MD on December 07, 2016 at 11:31 Board Certified Radiologist. This report was verified electronically.
[2016-12-07 12:26] LABS: BLOOD GAS BASE EXCESS 0.5 mmol/L (-2-2); BLOOD GAS CARBOXYHEMOGLOBIN 1.6 % (0-4); BLOOD GAS HCO3 24 mmol/L (22-26); BLOOD GAS METHEMOGLOBIN 1.2 % (0-2); BLOOD GAS O2 HGB SATURATION 94 % (90-100); BLOOD GAS PCO2 37 mmHg (38-42); BLOOD GAS PO2 80 mmHg (61-120); BLOOD GAS TOTAL HGB 11.3 G/DL (12.0-16.0); TEMP CORR TO 98.6
[2016-12-07 12:27] LABS: CRITICAL VALUE NO; DRAW SITE RT RADIAL; FIO2 40 %; NUMBER OF ARTERIAL PUNCTURES 1; OXYGEN DEVICE VENTILATOR; STAT NO; ULNAR PULSE PRESENT; VENT SETTINGS 600/16/PEEP5
[2016-12-07 13:00] LABS: APTT (PATIENT) 46.4 SEC (24.3-30.1)
[2016-12-07] MEDS: PIPERACIL-TAZO 3.375 GM PREMIX 50 ML IV SCH ×2 (13:40→17:55)
[2016-12-07] MEDS: AZITHROMYCIN INJ 500 MG in SODIUM CHLOR 0.9% 250 ML INJ 250 ML IV SCH (13:42)
--- NOTE | 2016-12-07 13:47 | EKG ---
Date Performed: 12/07/2016 Time Performed: 04:06:20 PTAGE: 71 years EKG: Sinus rhythm . Possible left atrial abnormality Possible left ventricular hypertrophy Extensive ST-T changes are p robably due to ventricular hypertrophy Inferior wall infarct of undetermined age Abnormal ECG Compare d to PREVIOUS TRACING , there has been no significant serial change. PREVIOUS TRACIN 017 09.23 DOCTOR: Pamela Nguyen Interpretating Date/Time 12/07/2016 13:47:17
[2016-12-07] MEDS: ALPRAZolam 0.5 MG TAB PO PRN (14:43)
[2016-12-07] MEDS: FAMOTIDINE 20 MG/2 ML VIAL IV PUSH SCH ×2 (14:47→20:58)
[2016-12-07 15:06] LABS: ALKALINE PHOSPHATASE 92 U/L (45-117); ALT (GPT) 23 U/L (10-53); ANION GAP 9 MEQ/L (5-15); AST (GOT) 25 U/L (15-37); BICARBONATE 24.7 MEQ/L (21.0-32.0); BLOOD UREA NITROGEN 24 MG/DL (7-18); CHLORIDE 101 MEQ/L (98-107); GLOMERULAR FILTRATION RATE 35 ML/MIN (>89); POTASSIUM 3.8 MEQ/L (3.5-5.1); SODIUM (NA) 135 MEQ/L (136-145); TOTAL BILIRUBIN ADULT 0.6 MG/DL (0.2-1.0)
[2016-12-07] MEDS ORDERED: HEPARIN-D5W 25,000 U/250 ML 250 ML IV ONE (17:15)
[2016-12-07 17:21] LABS: BLOOD GAS BASE EXCESS -1.1 mmol/L (-2-2); BLOOD GAS CARBOXYHEMOGLOBIN 1.4 % (0-4); BLOOD GAS HCO3 24 mmol/L (22-26); BLOOD GAS METHEMOGLOBIN 1.2 % (0-2); BLOOD GAS O2 HGB SATURATION 91 % (90-100); BLOOD GAS OXYGEN CONTENT 14.5 Vol % (12.0-20.0); BLOOD GAS PCO2 49 mmHg (38-42); BLOOD GAS PO2 74 mmHg (61-120); BLOOD GAS TOTAL HGB 11.3 G/DL (12.0-16.0); CRITICAL VALUE NO; DRAW SITE RT RADIAL; FIO2 40 %; NUMBER OF ARTERIAL PUNCTURES 2; OXYGEN DEVICE VENTILATOR; STAT NO; TEMP CORR TO 98.6; ULNAR PULSE PRESENT; VENT SETTINGS PS5/PEEP5
--- NOTE | 2016-12-07 17:49 | ECHRPT ---
Indication: Shortness of breath CONCLUSIONS Normal left ventricular size. Mild concentric left ventricular hypertrophy. The left ventricular systolic function is [id number] reduced with an estimated ejection fra ction in the range of 35-40%. Inferior wall hypokinesis.Mild mitral valve regurgitation. Diffuse calcification of the aortic valve. Trace aortic valve regurgitation. Mild aortic valve stenosis (no aortic valve gradient or mean gradient was recorded) There is trace tricuspid valve regurgitation. The estimated pulmonary arterial pressure is 32.8 mmHg. The inferior vena cava is dilated. BP: / HR: Rhythm: Sinus MEASUREMENTS (Male / Female) Normal Values Technical Quality:Good 2D ECHO LV Diastolic Diameter PLAX 5.7 cm 4.2 - 5.9 / 3.9 - 5.3 cm LV Systolic Diameter PLAX 5.0 cm IVS Diastolic Thickness 1.1 cm 0.6 - 1.0 / 0.6 - 0.9 cm LVPW Diastolic Thickness 1.1 cm 0.6 - 1.0 / 0.6 - 0.9 cm LV Relative Wall Thickness 0.4 RV Internal Dim ED PLAX 2.7 cm LVOT Diameter 1.8 cm LA Systolic Diameter LX 3.9 cm 3.0 - 4.0 / 2.7 - 3.8 cm LV Ejection Fraction MOD 4C 39.8 % LV Ejection Fraction 4C AL 43.6 % M-MODE Aortic Root Diameter MM 2.6 cm LA Systolic Diameter MM 3.7 cm LA Ao Ratio MM 1.4 AV Cusp Separation MM 1.9 cm DOPPLER AV Peak Velocity 149.0 cm/s AV Peak Gradient 8.9 mmHg LVOT Peak Velocity 69.1 cm/s LVOT Peak Gradient 1.9 mmHg AV Area Cont Eq pk 1.2 cm MV Area PHT 3.8 cm Mitral E Point Velocity 121.0 cm/s Mitral A Point Velocity 69.6 cm/s Mitral E to A Ratio 1.7 LV E' Lateral Velocity 4.4 cm/s Mitral E to LV E' Lateral Ratio 27.6 LV E' Septal Velocity 3.7 cm/s Mitral E to LV E' Septal Ratio 32.7 TR Peak Velocity 239.0 cm/s TR Peak Gradient 22.8 mmHg Right Atrial Pressure 10.0 mmHg Pulmonary Artery Systolic Pressu 32.8 mmHg Right Ventricular Systolic Press 32.8 mmHg PV Peak Velocity 78.7 cm/s PV Peak Gradient 2.5 mmHg FINDINGS LEFT VENTRICLE Normal left ventricular size. Mild concentric left ventricular hypertrophy. The left ventricular systolic function is tgppkfoj-ub-rykghfl reduced with an estimated ejection fra ction in the range of 35-40%. Inferior wall hypokinesis. RIGHT VENTRICLE Normal right ventricular size and systolic function. LEFT ATRIUM The left atrial size is normal. RIGHT ATRIUM The right atrial size is normal. ATRIAL SEPTUM Normal atrial septal thickness without atrial level shunting by limited color doppler interrogation. AORTA The aortic root and proximal ascending aorta are normal in size on limited imaging. MITRAL VALVE Mild mitral valve regurgitation. AORTIC VALVE Diffuse calcification of the aortic valve. Trace aortic valve regurgitation. Mild aortic valve stenosis (no aortic valve gradient or mean gradient was recorded) TRICUSPID VALVE There is trace tricuspid valve regurgitation. The estimated pulmonary arterial pressure is 32.8 mmHg. PULMONARY VALVE No pulmonary valve regurgitation or stenosis. VESSELS The inferior vena cava is dilated. PERICARDIUM No pericardial effusion. Lionel Ramos MD, FACC (Electronically Signed) Final Date:07 December 2016 17:49
[2016-12-07] MEDS: ALBUTEROL SULFATE 90 MCG/ACT HFA 18 GM INHALER INH SCH ×2 (18:00→21:00)
[2016-12-07] MEDS: SODIUM CHLOR 0.9% 1000 ML INJ 1,000 ML IV SCH ×2 (20:00→20:59)
[2016-12-07 20:10] LABS: APTT (PATIENT) 42.7 SEC (24.3-30.1)
[2016-12-07] MEDS: ATORVASTATIN 80 MG TAB PO SCH (20:57)
[2016-12-08] VITALS (14 sets, daily range): BP systolic 158–190; BP diastolic 70–79; PULSE 61–84; RESP 14–23; TEMP 97–98.4; O2SAT 94–97
[2016-12-08] MEDS: PIPERACIL-TAZO 3.375 GM PREMIX 50 ML IV SCH ×5 (00:14→23:35)
[2016-12-08] MEDS: INSULIN ASPART SUPPLEMENTAL SCALE SQ SCH ×5 (00:14→23:41)
[2016-12-08] MEDS: RESP: ALBUTEROL 2.5 MG/IPRATROPIUM 0.5 MG NEB (SCH) NEB ×6 (03:20→20:28)
[2016-12-08] MEDS: SODIUM CHLOR 0.9% 1000 ML INJ 1,000 ML IV SCH (03:43)
[2016-12-08] MEDS: methylPREDNISolone SOD SUCC 125 MG/2 ML VIAL IV PUSH SCH ×4 (03:43→20:21)
[2016-12-08] MEDS: CHLORHEXIDINE GLUCONATE 2 % 1 PACK (2 CLOTHS)(taper/protocol) TOPICAL SCH ×2 (03:48→23:02)
[2016-12-08 07:16] LABS: APTT (PATIENT) 44.5 SEC (24.3-30.1)
[2016-12-08] MEDS: CHLORHEXIDINE 0.12% (ORAL KIT) 15 ML CUP MT SCH ×2 (08:00→19:20)
[2016-12-08] MEDS: TIOTROPIUM BROMIDE 18 MCG INH INH SCH ×2 (08:27→09:12)
[2016-12-08] MEDS: ALBUTEROL SULFATE 90 MCG/ACT HFA 8 GM INHALER INH PRN ×4 (08:34→20:34)
[2016-12-08] MEDS: FUROSEMIDE 20 MG/2 ML VIAL IV PUSH SCH ×2 (08:34→17:17)
[2016-12-08] MEDS: POTASSIUM CHLORIDE 20 MEQ CONTROLLED RELEASE TAB PO SCH (08:35)
[2016-12-08] MEDS: amLODIPine BESYLATE 5 MG TAB PO SCH ×2 (08:35→20:22)
[2016-12-08] MEDS: FAMOTIDINE 20 MG/2 ML VIAL IV PUSH SCH (08:35)
[2016-12-08] MEDS: CLOPIDOGREL 75 MG TAB PO SCH (08:36)
[2016-12-08] MEDS: METOPROLOL TARTRATE 50 MG TAB PO SCH ×2 (08:36→20:22)
[2016-12-08] MEDS: FLUoxetine HCL 20 MG CAP PO SCH ×2 (08:37→20:22)
[2016-12-08] MEDS: ALBUTEROL SULFATE 90 MCG/ACT HFA 18 GM INHALER INH SCH ×4 (09:00→20:34)
[2016-12-08] MEDS ORDERED: FUROSEMIDE 20 MG/2 ML VIAL IV PUSH ONE (09:00)
[2016-12-08] MEDS: ALPRAZolam 0.5 MG TAB PO PRN ×2 (09:05→20:21)
--- NOTE | 2016-12-08 09:18 | PD.CARD.PN ---
Subjective Subjective Remarks Denies dyspnea, CP, dizziness, palpitations Objective Medications Current Medications Medications (Trade) Dose Ordered Sig/Samy Route Start Time Stop Time Status Last Admin (NS Flush) 2 ml UNSCH PRN IVF 12/06/16 09:45 (Heparin Inj) 5,000 units UNSCH PRN IV 12/06/16 15:45 (Heparin Inj) 2,500 units UNSCH PRN IV 12/06/16 15:45 12/07/16 05:06 (Nitrostat Sl) 0.4 mg Q5M PRN SL 12/06/16 12:15 12/06/16 16:58 (Morphine Inj) 2 mg Q30M PRN IV PUSH 12/06/16 12:15 12/06/16 17:41 (Proair Hfa Inh) 2 puff Q4HR NEB PRN INH 12/06/16 14:00 12/08/16 08:34 (Xanax) 0.5 mg Q8H PRN PO 12/06/16 14:00 12/08/16 09:05 (Norvasc) 5 mg BID PO 12/06/16 15:00 12/08/16 08:35 (Lipitor) 80 mg HS PO 12/06/16 21:00 12/07/16 20:57 (Plavix) 75 mg DAILY PO 12/06/16 16:00 12/08/16 08:36 (PROzac) 20 mg BID PO 12/06/16 16:00 12/08/16 08:37 ([place] 5-325 Mg) 1 tab Q6H PRN PO 12/06/16 14:00 (Lopressor) 50 mg BID PO 12/06/16 21:00 12/08/16 08:36 (KCl) 20 meq DAILY PO 12/06/16 14:00 12/08/16 08:35 (Restoril) 15 mg HS PRN PO 12/06/16 14:00 (Benadryl) 50 mg BUSINESS PROCESS REPRESENTATIVE PO 12/06/16 14:00 12/10/16 13:59 (Valium) 10 mg BUSINESS PROCESS REPRESENTATIVE PO 12/06/16 14:00 12/10/16 13:59 (Spiriva Inh) 18 mcg DAILY INH 12/07/16 09:00 12/08/16 08:27 (Ventolin Hfa Inh) 2 puff QID INH 12/06/16 18:00 12/06/16 18:00 (Duoneb Neb) 1 ampule Q2HR NEB PRN NEB 12/06/16 17:00 12/07/16 10:52 Nitroglycerin/ Dextrose 250 ml @ 3 mls/hr TITRATE PRN IV 12/06/16 18:15 Miscellaneous Information Patient in critical care unit? Ass... Q361D .XX 12/06/16 21:45 (Chlorhexidine 2% Cloth) 3 pack DAILY@04 TOPICAL 12/07/16 04:00 12/11/16 04:01 12/08/16 03:48 (Chlorhexidine 2% Cloth) 3 pack UNSCH PRN TOPICAL 12/06/16 21:45 12/11/16 21:41 (Peridex 0.12% Liq) 15 ml BID@08,20 MT 12/07/16 08:00 12/07/16 09:03 (SoluMEDROL INJ) 60 mg Q6H IV PUSH 12/07/16 09:00 12/08/16 08:36 (D50w (Vial) Inj) 50 ml UNSCH PRN IV PUSH 12/07/16 06:45 (Glucagon Inj) 1 mg UNSCH PRN OTHER 12/07/16 06:45 (NovoLOG SUPPLEMENTAL SCALE) 1 Q6H SQ 12/07/16 06:45 Fentanyl Citrate 250 ml @ 5 mls/hr TITRATE PRN IV 12/07/16 07:15 12/07/16 08:58 (Lasix Inj) 20 mg BID@09,18 IV PUSH 12/07/16 09:00 12/08/16 08:34 (Pepcid Inj) 20 mg Q12H IV PUSH 12/07/16 10:00 12/08/16 08:35 Piperacillin Sod/ Tazobactam Sod 50 ml @ 100 mls/hr Q6H IV 12/07/16 12:00 12/08/16 05:50 Azithromycin 500 mg/Sodium Chloride 250 ml @ 250 mls/hr Q24H IV 12/07/16 11:00 12/07/16 13:42 (Duoneb Neb) 1 ampule Q4HR NEB NEB 12/07/16 12:00 12/08/16 08:17 Propofol 100 ml @ 2.07 mls/hr TITRATE PRN IV 12/07/16 11:00 12/07/16 13:44 Heparin Sodium/ Dextrose 250 ml @ 8 mls/hr TITRATE ONCE IV 12/07/16 17:15 12/09/16 00:29 12/07/16 17:55 Vital Signs / I&O Vital Signs Date Time Temp Pulse Resp B/P (MAP) Pulse Ox O2 Delivery O2 Flow Rate FiO2 12/08/16 08:21 94 Nasal Cannula 3.00 12/08/16 06:00 62 12/08/16 04:00 97.0 66 14 162/70 (100) 97 12/08/16 04:00 63 12/08/16 02:00 62 12/08/16 00:00 61 12/08/16 00:00 97.9 62 19 158/71 (100) 95 12/07/16 22:00 71 12/07/16 20:36 100 Nasal Cannula 3.00 12/07/16 20:00 63 12/07/16 20:00 Nasal Cannula 4.00 Humidified 12/07/16 20:00 98.4 69 24 177/76 (109) 93 12/07/16 17:50 94 Nasal Cannula 3 12/07/16 16:00 97.1 64 13 132/63 (86) 98 12/07/16 16:00 64 12/07/16 15:48 96 40 12/07/16 15:12 99 40 12/07/16 14:40 40 12/07/16 14:00 64 12/07/16 12:00 75 12/07/16 12:00 97.8 92 16 115/57 (76) 98 12/07/16 11:51 98 40 12/07/16 11:00 100 100 12/07/16 10:00 83 I/O 12/07/16 12/07/16 12/07/16 12/08/16 12/08/16 12/08/16 07:00 15:00 23:00 07:00 15:00 23:00 Intake Total 600 ml 112.5 ml 150 ml 1747 ml Output Total 420 ml 600 ml Balance 180 ml 112.5 ml 150 ml 1147 ml Intake Oral 150 ml 360 ml IV Total 450 ml 112.5 ml 150 ml 1387 ml Output Urine Total 420 ml 600 ml # Bowel Movements 0 0 Physical Exam GENERAL: Well developed, well nourished, no acute distress. HEENT: Jugular venous pressure is normal. CHEST: Lungs clear to auscultation anteriorly. CARDIAC: Regular rate and rhythm without S3, S4, or murmur. ABDOMEN: Soft, nontender, no hepatosplenomegaly. Bowel sounds present. EXTREMITIES: No clubbing, cyanosis, or edema. Laboratory Laboratory Tests Test 12/07/16 12:16 12/07/16 12:33 12/07/16 14:02 12/07/16 17:02 Blood Gas Puncture Site RT RADIAL RT RADIAL Blood Gas Patient Temperature 98.6 98.6 Blood Gas HCO3 24 mmol/L 24 mmol/L Blood Gas Base Excess 0.5 mmol/L -1.1 mmol/L Blood Gas Oxygen Saturation 94 % 91 % Arterial Blood pH 7.43 7.31 Arterial Blood Partial Pressure CO2 37 mmHg 49 mmHg Arterial Blood Partial Pressure O2 80 mmHg 74 mmHg Arterial Blood Oxygen Content 15.0 Vol % 14.5 Vol % Arterial Blood Carboxyhemoglobin 1.6 % 1.4 % Arterial Blood Methemoglobin 1.2 % 1.2 % Blood Gas Hemoglobin 11.3 G/DL 11.3 G/DL Oxygen Delivery Device VENTILATOR VENTILATOR Blood Gas Ventilator Setting 600/16/PEEP5 PS5/PEEP5 Blood Gas Inspired Oxygen 40 % 40 % Activated Partial Thromboplast Time 46.4 SEC Blood Urea Nitrogen 24 MG/DL Creatinine 1.49 MG/DL Random Glucose 173 MG/DL Total Protein 6.5 GM/DL Albumin 3.2 GM/DL Calcium Level 8.6 MG/DL Alkaline Phosphatase 92 U/L Aspartate Amino Transf (AST/SGOT) 25 U/L Alanine Aminotransferase (ALT/SGPT) 23 U/L Total Bilirubin 0.6 MG/DL Sodium Level 135 MEQ/L Potassium Level 3.8 MEQ/L Chloride Level 101 MEQ/L Carbon Dioxide Level 24.7 MEQ/L Anion Gap 9 MEQ/L Estimat Glomerular Filtration Rate 35 ML/MIN Test 12/07/16 19:07 12/08/16 05:40 Activated Partial Thromboplast Time 42.7 SEC 44.5 SEC Assessment and Plan Problem List: (1) CAD (coronary artery disease) ICD Codes: I25.10 - CAD (coronary artery disease) Status: Chronic Plan: Cardiac status overall appears stable. CP's on admission possibly noncardiac in origin; despite considerable CP in the 24 hours prior to admission , CK's negative for [place]. Repeat EKG overall unchanged. REC consider nuclear stress test once respiratory status more stable continue current medical regimen will have Dr. Valentine see patient PRN over the weekend (2) Hypertension, benign ICD Codes: I10 - Hypertension, benign Status: Chronic Plan: Fluctuating BP's. Continue to monitor. (3) Hyperlipidemia ICD Codes: E78.5 - Hyperlipidemia Status: Chronic Plan: Overall suboptimal lipid profile on high dose atorvastatin. Rec consider change to Crestor as outpatient. Problem Qualifiers (1) CAD (coronary artery disease): Qualified Codes: I25.119 - Atherosclerotic heart disease of [place] coronary artery with unspecified angina pectoris (2) Hyperlipidemia: Qualified Codes: E78.2 - Mixed hyperlipidemia Fidencio Ramon MD Dec 08, 2016 09:18
--- NOTE | 2016-12-08 10:17 | RADRPT ---
EXAM DATE/TIME: 12/08/2016 09:40 [facility] COMPARISON: CHEST SINGLE AP, December 07, 2016, 3:39. INDICATIONS : Respiratory Disease. Patient complains of chest pain and shortness of breath. MEDICAL HISTORY : Cardiovascular disease. Hypertension. Chronic obstructive pulmonary disease. SURGICAL HISTORY : CABG Hysterectomy ENCOUNTER: Subsequent ACUITY: 3 days PAIN SCORE: 0/10 LOCATION: Bilateral chest FINDINGS: Sternal wires from previous bypass are noted. The heart remains enlarged with mild interstitial nadir a. There is no pleural effusion. CONCLUSION: Improvement with mild interstitial edema persisting. Bayron Jimenez MD FACR on December 08, 2016 at 10:15 Board Certified Radiologist. This report was verified electronically.
--- NOTE | 2016-12-08 11:18 | HHI.CCPN ---
Subjective Remarks/Hospital Course 71-year-old female with past medical history of coronary artery disease with prior stents and CABG, hypertension, hyperlipidemia, COPD, GERD, ongoing tobacco abuse who presented to [facility] emergency department at around 9 AM on 12/06 with crushing chest pain radiating to her left arm that awoke her from sleep at 5 am associated with shortness of breath. This was associated with diaphoresis. She tried bronchodilators without improvement. She then took nitroglycerin and her chest pain resolved. She then later tried to ambulate and chest pain recurred so she took another nitroglycerin and then contacted E [facility]. She denied nausea or vomiting. Denied syncope. [facility] and placed on aspirin, nitroglycerin, heparin drip. Serial troponins 0.4. EKG with inferior q waves and T wave inversions II, III, AVF, V4-V6 Findings in inferior leads were seen on prior EKG 03/14. She was evaluated by Dr. Ramon who is planning to do cardiac catheterization later this morning due to unstable angina. I was called emergently by her nurse. Apparently patient transitioned herself to bedside commode and became acutely severely short of breath, tachycardic, hypertensive in 200s and then became unresponsive. RT had attempted to intubate because patient was apneic but was unable to intubate without sedation. I came to bedside and intubated the patient. She has severely diminished breath sounds bilaterally with severe bronchospasm. She has just received lasix 20 mg IV and Solumedrol 125 mg IV per hospitalist order. Adding continuous duoneb x3. Repeat EKG stat shows no acute changes. ABG post emergent intubation is hypercapnic SUBJ 12/08: Patient was extubated yesterday, tolerating well. Intermittent wheezing. Received Lasix this am. ECHO 11/27 Normal left ventricular size. LV systolic function is [id number] reduced with an estimated ejection fraction in the range of 35-40%. Inferior wall hypokinesis. Objective Vital Signs Date Time Temp Pulse Resp B/P (MAP) Pulse Ox O2 Delivery O2 Flow Rate FiO2 12/08/16 08:21 94 Nasal Cannula 3.00 12/08/16 06:00 62 12/08/16 04:00 97.0 14 162/70 (100) 12/07/16 15:48 40 Intake and Output 12/08/16 12/08/16 12/09/16 08:00 16:00 00:00 Intake Total 1747 ml Output Total 600 ml Balance 1147 ml Result Diagram: 12/07/16 0347 12/07/16 1402 Other Results Laboratory Tests Test 12/07/16 12:16 12/07/16 17:02 Blood Gas Puncture Site RT RADIAL RT RADIAL Blood Gas Patient Temperature 98.6 98.6 Blood Gas HCO3 24 mmol/L (22-26) 24 mmol/L (22-26) Blood Gas Base Excess 0.5 mmol/L (-2-2) -1.1 mmol/L (-2-2) Blood Gas Oxygen Saturation 94 % (90-100) 91 % (90-100) Arterial Blood pH 7.43 (7.380-7.420) 7.31 (7.380-7.420) Arterial Blood Partial Pressure CO2 37 mmHg (38-42) 49 mmHg (38-42) Arterial Blood Partial Pressure O2 80 mmHg (61-120) 74 mmHg (61-120) Arterial Blood Oxygen Content 15.0 Vol % (12.0-20.0) 14.5 Vol % (12.0-20.0) Arterial Blood Carboxyhemoglobin 1.6 % (0-4) 1.4 % (0-4) Arterial Blood Methemoglobin 1.2 % (0-2) 1.2 % (0-2) Blood Gas Hemoglobin 11.3 G/DL (12.0-16.0) 11.3 G/DL (12.0-16.0) Oxygen Delivery Device VENTILATOR VENTILATOR Blood Gas Ventilator Setting 600/16/PEEP5 PS5/PEEP5 Blood Gas Inspired Oxygen 40 % 40 % Objective Remarks GENERAL: Lying in bed on NC SKIN: Warm and dry. HEAD: Atraumatic. Normocephalic. EYES: Pupils equal and round, 2 mm and reactive bilaterally ENT: No nasal bleeding or discharge. Mucous membranes pink and moist. NECK: Trachea midline. No JVD. CARDIOVASCULAR: S1-S2 normal no murmurs RESPIRATORY: Air entry equal bilaterally with mild bilateral wheezing GASTROINTESTINAL: Abdomen soft, non-tender, nondistended. Bowel sounds present. : Sue in place with yellow urine output. MUSCULOSKELETAL: Extremities without clubbing, cyanosis or significant peripheral edema. NEUROLOGICAL: Alert awake oriented 3. No focal deficits A/P Assessment and Plan NEURO: Depression Anxiety Extubated yesterday discontinue all continuos sedation CT of the head negative for acute findings Prozac 20 mg po bid. Xanax 0.5 mg by mouth every 8 hours as needed for anxiety-reduce to 0.25mg po q8 PRN RESP: Acute hypercapnic respiratory failure Acute COPD exacerbation with probable pneumonia Emphysema Tobacco abuse Extubated yesterday evening tolerating well Duoneb q4 scheduled and PRN. Solumedrol 125 mg IV x2 and 60 mg IV q6 hours. CXR with interstitial opacities. Cardiac pulmonary edema and pneumonia CV: Acute systolic heart failure Cardiomyopathy probably ischemic EF 35-40% Coronary artery disease with prior stents and 5 vessel CABG Chronic systolic heart failure Hypertension Hyperlipidemia Echo 12/07: LV EF 35-40%. Inferior wall hypokinesis. Feb 2016 Echo EF 45-50%, no WMA DC NTG drip 20 mcg/min, Continue Heparin drip, aspirin plavix, atorvastatin 80 mg daily, metoprolol 50 bid. IV Lasix 20 mg 1 now and every 12. Potassium replacement Start Frank inhibitors once renal function improved Most likely will need cardiac cath once stable. Will D/W Dr. Ramon GI: Heart healthy diet FEN/RENAL: FRANSISCO Hyperkalemia Hyponatremia Sue in place. Monitor intake and output. Replace electrolytes as clinically indicated. Lasix 20 mg IV x1 given. Will continue 20 mg IV q12. ID: Bibasilar pneumonia - Started on Zosyn and azithromycin 12/07/16 - F/U Blood and sputum culture HEME: - No acute hematologic issues. On heparin drip. ENDO: - Low-dose insulin sliding scale with bedside glucose every 6 hours PROPH: - Heparin drip will provide DVT prophylaxis. Famotidine for stress ulcer prophylaxis ACCESS: Peripheral IV providing adequate access at this time. Followup up after nebs and patient has bilateral breath sounds with much improved air movement bilaterally and now synchronous with mechanical ventilation on current sedation. Discussed with bedside RN Level 3 Continue ICU care. Consult [facility] to assume care in am 12/09/16 Olaf Saavedra MD Dec 08, 2016 11:18
[2016-12-08 12:06] LABS: AUTOMATED NEUTROPHIL # 9.5 TH/MM3 (1.8-7.7); HEMATOCRIT 33.1 % (35.0-46.0); HEMO FLAGS DIFF FINAL; LYMPH % 6.4 % (9.0-44.0); LYMPHOCYTE # 0.7 TH/MM3 (1.0-4.8); MEAN CELL VOLUME 87.5 FL (80.0-100.0); MEAN CORPUSCULAR HEMOGLOBIN 28.8 PG (27.0-34.0); MONO % 1.5 % (0.0-8.0); NEUT % 92.1 % (16.0-70.0); PLATELET COUNT 182 TH/MM3 (150-450); RED BLOOD COUNT 3.78 MIL/MM3 (4.00-5.30); RED CELL DISTRIBUTION WIDTH 14.7 % (11.6-17.2); WHITE BLOOD COUNT 10.3 TH/MM3 (4.0-11.0)
[2016-12-08 12:31] LABS: ALT (GPT) 20 U/L (10-53); ANION GAP 8 MEQ/L (5-15); AST (GOT) 18 U/L (15-37); BICARBONATE 25.7 MEQ/L (21.0-32.0); BLOOD UREA NITROGEN 26 MG/DL (7-18); CHLORIDE 104 MEQ/L (98-107); GLOMERULAR FILTRATION RATE 40 ML/MIN (>89); POTASSIUM 3.2 MEQ/L (3.5-5.1); SODIUM (NA) 138 MEQ/L (136-145)
[2016-12-08 12:33] LABS: ALKALINE PHOSPHATASE 78 U/L (45-117); TOTAL BILIRUBIN ADULT 0.6 MG/DL (0.2-1.0)
[2016-12-08] MEDS: AZITHROMYCIN INJ 500 MG in SODIUM CHLOR 0.9% 250 ML INJ 250 ML IV SCH (12:57)
[2016-12-08] MEDS: ASPIRIN EC 81 MG TABEC PO SCH (12:57)
[2016-12-08] MEDS ORDERED: METOPROLOL TARTRATE 5 MG/5 ML VIAL IV PUSH ONE (15:30)
[2016-12-08] MEDS ORDERED: POTASSIUM CHLORIDE 25 MEQ EFFERVESCENT TAB PO ONE (15:30)
[2016-12-08] MEDS ORDERED: FUROSEMIDE 20 MG TAB PO SCH (18:00)
[2016-12-08] MEDS: ATORVASTATIN 80 MG TAB PO SCH (20:21)
[2016-12-08] MEDS ORDERED: FAMOTIDINE 20 MG/2 ML VIAL IV PUSH SCH (22:00)
[2016-12-09] VITALS (15 sets, daily range): BP systolic 168–197; BP diastolic 72–89; PULSE 59–81; RESP 14–22; TEMP 97.7–98.7; O2SAT 94–98
[2016-12-09] MEDS: RESP: ALBUTEROL 2.5 MG/IPRATROPIUM 0.5 MG NEB (SCH) NEB ×7 (00:02→23:53)
[2016-12-09] MEDS: methylPREDNISolone SOD SUCC 125 MG/2 ML VIAL IV PUSH SCH ×3 (02:40→17:40)
[2016-12-09] MEDS: PIPERACIL-TAZO 3.375 GM PREMIX 50 ML IV SCH ×3 (05:13→17:40)
[2016-12-09] MEDS: INSULIN ASPART SUPPLEMENTAL SCALE SQ SCH ×3 (06:16→17:44)
[2016-12-09 06:22] LABS: HEMATOCRIT 34.4 % (35.0-46.0); MEAN CELL VOLUME 88.1 FL (80.0-100.0); MEAN CORPUSCULAR HEMOGLOBIN 30.1 PG (27.0-34.0); MEAN CORPUSCULAR HGB CONC 34.1 % (32.0-36.0); PLATELET COUNT 184 TH/MM3 (150-450); RED CELL DISTRIBUTION WIDTH 14.7 % (11.6-17.2); REVIEW FLAG FINAL; WHITE BLOOD COUNT 10.5 TH/MM3 (4.0-11.0)
[2016-12-09 06:34] LABS: APTT (PATIENT) 34.8 SEC (24.3-30.1)
[2016-12-09] MEDS: CHLORHEXIDINE 0.12% (ORAL KIT) 15 ML CUP MT SCH ×2 (08:00→20:00)
[2016-12-09] MEDS: ALBUTEROL SULFATE 90 MCG/ACT HFA 18 GM INHALER INH SCH ×4 (09:00→21:00)
[2016-12-09 09:08] LABS: ALT (GPT) 23 U/L (10-53); ANION GAP 8 MEQ/L (5-15); AST (GOT) 17 U/L (15-37); BICARBONATE 24.9 MEQ/L (21.0-32.0); BLOOD UREA NITROGEN 29 MG/DL (7-18); CHLORIDE 105 MEQ/L (98-107); GLOMERULAR FILTRATION RATE 42 ML/MIN (>89); MAGNESIUM 2.3 MG/DL (1.5-2.5); POTASSIUM 3.5 MEQ/L (3.5-5.1); SODIUM (NA) 138 MEQ/L (136-145)
[2016-12-09 09:09] LABS: ALKALINE PHOSPHATASE 64 U/L (45-117); TOTAL BILIRUBIN ADULT 0.6 MG/DL (0.2-1.0)
[2016-12-09] MEDS: FLUoxetine HCL 20 MG CAP PO SCH ×2 (09:53→19:40)
[2016-12-09] MEDS: FUROSEMIDE 20 MG/2 ML VIAL IV PUSH SCH ×2 (09:53→17:41)
[2016-12-09] MEDS: amLODIPine BESYLATE 5 MG TAB PO SCH ×2 (09:53→19:40)
[2016-12-09] MEDS: POTASSIUM CHLORIDE 20 MEQ CONTROLLED RELEASE TAB PO SCH (09:54)
[2016-12-09] MEDS: ASPIRIN EC 81 MG TABEC PO SCH (09:54)
[2016-12-09] MEDS: CLOPIDOGREL 75 MG TAB PO SCH (09:54)
[2016-12-09] MEDS: METOPROLOL TARTRATE 50 MG TAB PO SCH ×2 (09:54→17:40)
[2016-12-09] MEDS: ALPRAZolam 0.5 MG TAB PO PRN (10:07)
--- NOTE | 2016-12-09 11:28 | HHI.PR ---
Subjective Remarks Patient reports she is feeling better. Blood pressure uncontrolled. She is down to 3 L of nasal cannula. No chest pain. Objective Vitals Vital Signs Date Time Temp Pulse Resp B/P (MAP) Pulse Ox O2 Delivery O2 Flow Rate FiO2 12/09/16 07:50 94 Nasal Cannula 3.00 12/09/16 06:00 80 12/09/16 04:00 98.5 70 14 168/87 (114) 95 12/09/16 04:00 70 12/09/16 02:00 67 12/09/16 00:00 68 12/09/16 00:00 98.2 68 14 168/72 (104) 95 12/08/16 22:00 78 12/08/16 20:28 96 Nasal Cannula 3.00 12/08/16 20:00 84 12/08/16 20:00 98.3 84 15 170/77 (108) 95 12/08/16 19:00 Nasal Cannula 4.00 Humidified 12/08/16 18:00 70 12/08/16 16:00 97.9 72 23 175/74 (107) 97 12/08/16 16:00 72 12/08/16 14:00 71 12/08/16 12:00 98.4 71 23 189/79 (115) 97 12/08/16 12:00 71 I/O 12/08/16 12/08/16 12/08/16 12/09/16 12/09/16 12/09/16 07:00 15:00 23:00 07:00 15:00 23:00 Intake Total 1747 ml 270 ml 400 ml 200 ml 50 ml Output Total 600 ml 1500 ml 800 ml Balance 1147 ml 270 ml -1100 ml -600 ml 50 ml Intake Oral 360 ml 400 ml 200 ml IV Total 1387 ml 270 ml 50 ml Output Urine Total 600 ml 1500 ml 800 ml # Bowel Movements 0 0 0 Result Diagram: 12/09/16 0515 12/09/16 0730 Imaging Last Impressions Chest X-Ray 12/08/16 0000 Signed Impressions: Service Date/Time: Thursday, December 08, 2016 09:40 - CONCLUSION: Improvement with mild interstitial edema persisting. Bayron Jimenez MD FACR Head CT 12/07/16 0000 Signed Impressions: Service Date/Time: November 11:12 - CONCLUSION: 1. No acute intracranial abnormality identified. Wayne Jimenez MD CT Angiography 12/07/16 0000 Signed Impressions: Service Date/Time: , December 07, 2016 11:16 - CONCLUSION: 1. No evidence of pulmonary embolism. 2. Upper lobe interstitial prominence suggesting mild interstitial edema. 3. Consolidating airspace disease with small bilateral effusions in both lower lobes. 4. Calcific coronary artery disease. 5. Fluid filled stomach with indwelling nasogastric tube. Silvestre Storey MD Objective Remarks GENERAL: This is a well-nourished, well-developed patient, in no apparent distress. CARDIOVASCULAR: Normal rate and regular rhythm without murmurs, gallops, or rubs. RESPIRATORY: Poor air movement throughout. No wheezing or rhonchi. GASTROINTESTINAL: Abdomen soft, non-tender, non-distended. Normal active bowel sounds MUSCULOSKELETAL: Extremities without cyanosis, or edema. NEURO: Alert & Oriented x4 to person, place, time, situation. Moves all ext x4 PSYCH: Appropriate mood and affect. A/P Assessment and Plan 71-year-old female with history of CABG, COPD, hypertension, GERD, initially admitted for chest pain and shortness of breath. The patient went into acute respiratory failure requiring intubation. She is status post ICU stay. Her condition has improved, her care is transferred to the hospitalist service. Acute systolic congestive heart failure Cardiomyopathy probably ischemic EF 35-40% Coronary artery disease with prior stents and 5 vessel CABG Chronic systolic heart failure Hypertension Hyperlipidemia Echo 12/07: LV EF 35-40%. Inferior wall hypokinesis. Feb 2016 Echo EF 45-50%, no WMA Per Cardiology, unlikely to BMI given stability of cardiac enzymes. DC NTG drip 20 mcg/min, discontinue Heparin drip. Continue aspirin, plavix, atorvastatin 80 mg daily, metoprolol 50 bid. Plan for nuclear stress tests tomorrow if respiratory status remained stable. IV Lasix 20 mg 1 now and every 12. Potassium replacement Blood pressure uncontrolled, start losartan. Clonidine as needed. Most likely will need cardiac cath once stable. Will D/W Dr. Ramon Depression Anxiety Prozac 20 mg po bid. Xanax 0.5 mg by mouth every 8 hours as needed for anxiety-reduce to 0.25mg po q8 PRN Acute hypercapnic respiratory failure Acute COPD exacerbation with probable pneumonia Emphysema Tobacco abuse Extubated, tolerating well Duoneb q4 scheduled and PRN. Solumedrol q8 hours. CXR with interstitial opacities. Cardiac pulmonary edema and pneumonia FRANSISCO Hyperkalemia Hyponatremia Sue in place. Monitor intake and output. Replace electrolytes as clinically indicated. Lasix 20 mg IV x1 given. Will continue 20 mg IV q12. Bibasilar pneumonia - Started on Zosyn and azithromycin 12/07/16 - F/U Blood and sputum culture PROPH: - Heparin. Famotidine for stress ulcer prophylaxis Discharge Planning Stable for transfer to floor. Winifred Vasquez MD Dec 09, 2016 11:28
[2016-12-09] MEDS: cloNIDine HCL 0.1 MG TAB PO PRN ×2 (13:30→19:47)
[2016-12-09 13:42] LABS: APTT (PATIENT) 36.3 SEC (24.3-30.1)
[2016-12-09] MEDS: LOSARTAN 50 MG TAB PO SCH (15:28)
[2016-12-09] MEDS: ATORVASTATIN 80 MG TAB PO SCH (19:40)
[2016-12-10] VITALS (25 sets, daily range): BP systolic 149–173; BP diastolic 60–85; PULSE 53–106; RESP 18–22; TEMP 97.4–98.2; O2SAT 93–100
[2016-12-10] MEDS: INSULIN ASPART SUPPLEMENTAL SCALE SQ SCH ×5 (00:45→21:13)
[2016-12-10] MEDS: methylPREDNISolone SOD SUCC 125 MG/2 ML VIAL IV PUSH SCH ×2 (01:00→08:45)
[2016-12-10] MEDS: METOPROLOL TARTRATE 50 MG TAB PO SCH ×4 (01:00→23:56)
[2016-12-10] MEDS: RESP: ALBUTEROL 2.5 MG/IPRATROPIUM 0.5 MG NEB (SCH) NEB ×5 (03:03→21:01)
[2016-12-10] MEDS: CHLORHEXIDINE GLUCONATE 2 % 1 PACK (2 CLOTHS)(taper/protocol) TOPICAL SCH (04:00)
[2016-12-10] MEDS: PIPERACIL-TAZO 3.375 GM PREMIX 50 ML IV SCH ×5 (06:13→23:57)
[2016-12-10] MEDS: CHLORHEXIDINE 0.12% (ORAL KIT) 15 ML CUP MT SCH ×2 (06:53→20:00)
[2016-12-10 08:28] LABS: HEMATOCRIT 34.3 % (35.0-46.0); MEAN CELL VOLUME 87.8 FL (80.0-100.0); MEAN CORPUSCULAR HEMOGLOBIN 29.5 PG (27.0-34.0); MEAN CORPUSCULAR HGB CONC 33.6 % (32.0-36.0); PLATELET COUNT 197 TH/MM3 (150-450); RED CELL DISTRIBUTION WIDTH 14.5 % (11.6-17.2); REVIEW FLAG FINAL; WHITE BLOOD COUNT 7.5 TH/MM3 (4.0-11.0)
[2016-12-10 08:33] LABS: APTT (PATIENT) 23.8 SEC (24.3-30.1)
[2016-12-10] MEDS: ALBUTEROL SULFATE 90 MCG/ACT HFA 18 GM INHALER INH SCH ×4 (08:40→21:00)
[2016-12-10] MEDS: TIOTROPIUM BROMIDE 18 MCG INH INH SCH (08:40)
[2016-12-10] MEDS: LOSARTAN 50 MG TAB PO SCH (08:43)
[2016-12-10] MEDS: CLOPIDOGREL 75 MG TAB PO SCH (08:44)
[2016-12-10] MEDS: FLUoxetine HCL 20 MG CAP PO SCH ×2 (08:44→20:52)
[2016-12-10] MEDS: amLODIPine BESYLATE 5 MG TAB PO SCH ×2 (08:44→20:52)
[2016-12-10] MEDS: ASPIRIN EC 81 MG TABEC PO SCH (08:44)
[2016-12-10] MEDS: FUROSEMIDE 20 MG/2 ML VIAL IV PUSH SCH (08:45)
[2016-12-10] MEDS: POTASSIUM CHLORIDE 20 MEQ CONTROLLED RELEASE TAB PO SCH (08:45)
[2016-12-10 08:49] LABS: BICARBONATE 30.4 MEQ/L (21.0-32.0); POTASSIUM 3.5 MEQ/L (3.5-5.1)
[2016-12-10] MEDS ORDERED: REGADENOSON INJ 0.4 MG/5 ML SYR ONE (10:29)
--- NOTE | 2016-12-10 12:57 | RADRPT ---
EXAM DATE/TIME: 12/10/2016 09:54 [facility] COMPARISON: MYOCARDIAL PERF PHARM SPECT, GATED W/EF, November 12, 2014, 10:29. INDICATIONS : Coronary artery disease. Abnormal EKG. DOSE: 26.6 mCi Tc99m Myoview at stress. 8.6 mCi Tc99m Myoview at rest. 0.4 mg Lexiscan STRESS SYMPTOMS: Dyspnea. EJECTION FRACTION: 34% MEDICAL HISTORY : Myocardial infarction. Chronic obstructive pulmonary disease. SURGICAL HISTORY : Coronary artery stent. CABG Appendectomy. ENCOUNTER: Initial ACUITY: 2 days PAIN SCALE: 0/10 LOCATION: chest TECHNIQUE: The patient underwent pharmacologic stress with infusion of prescribed dose. Continuous ECG tracing was monitored during stress. Gated SPECT imaging was performed after stress and conventional SPECT i maging was performed at rest. The examination was performed on a SPECT/CT scanner, both attenuation and non-corrected datasets were reviewed. FINDINGS: DISTRIBUTION: The maximum perfused segment at stress is in the lateral wall. PERFUSION STUDY: There continues to be a fixed persistent large perfusion defect involving the inferior wall and later al wall. This was present on the prior study from 2014 without significant change. There is no eviden ce of any significant redistribution. No significant change compared to 2014. GATED STUDY: Diffuse global hypokinesis with some dyskinesia involving the inferior septal wall. CONCLUSION: Large fixed persistent perfusion defect involving the inferior wall and lateral wall without signific ant change compared to 2015. No definite ischemic myocardial changes are seen. RISK CATEGORY: low Doroteo Pathak MD on December 10, 2016 at 12:52 Board Certified Radiologist. This report was verified electronically.
--- NOTE | 2016-12-10 13:16 | HHI.PR ---
Subjective Remarks Patient seen after nuclear stress test. She states she had diarrhea from the test. No chest pain. Stable on nasal cannula. Objective Vitals Vital Signs Date Time Temp Pulse Resp B/P (MAP) Pulse Ox O2 Delivery O2 Flow Rate FiO2 12/10/16 09:00 68 12/10/16 08:00 98.2 71 18 158/85 (109) 93 12/10/16 08:00 53 12/10/16 07:41 94 Nasal Cannula 2.00 12/10/16 07:21 Nasal Cannula 2.00 12/10/16 07:00 54 12/10/16 05:00 60 12/10/16 04:44 98.0 58 22 149/83 (105) 95 12/10/16 04:00 58 12/10/16 03:00 60 12/10/16 02:00 58 12/10/16 01:00 60 12/10/16 00:16 98.0 62 22 173/67 (102) 95 12/10/16 00:00 58 12/09/16 23:00 76 12/09/16 22:00 59 12/09/16 20:11 96 Nasal Cannula 3.00 12/09/16 20:00 62 12/09/16 20:00 97.7 62 22 192/79 (116) 98 12/09/16 19:00 98 Nasal Cannula 2.00 12/09/16 18:00 65 12/09/16 16:00 98.5 66 19 193/78 (116) 96 12/09/16 16:00 66 12/09/16 14:00 66 I/O 12/09/16 12/09/16 12/09/16 12/10/16 12/10/16 12/10/16 07:00 15:00 23:00 07:00 15:00 23:00 Intake Total 200 ml 50 ml 330 ml 240 ml Output Total 800 ml 1000 ml 1100 ml Balance -600 ml 50 ml -670 ml -860 ml Intake Oral 200 ml 230 ml 240 ml IV Total 50 ml 100 ml Output Urine Total 800 ml 1000 ml 1100 ml # Bowel Movements 0 0 Result Diagram: 12/10/1662112/10/16621 Objective Remarks GENERAL: Elderly female in no apparent distress CARDIOVASCULAR: Normal rate and regular rhythm without murmurs, gallops, or rubs. RESPIRATORY: Poor air movement throughout. No wheezing or rhonchi. GASTROINTESTINAL: Abdomen soft, non-tender, non-distended. Normal active bowel sounds MUSCULOSKELETAL: Extremities without cyanosis, or edema. NEURO: Alert & Oriented x4 to person, place, time, situation. Moves all ext x4 PSYCH: Depressed mood today as she talked about her son's a year ago. A/P Assessment and Plan 71-year-old female with history of CABG, COPD, hypertension, GERD, initially admitted for chest pain and shortness of breath. The patient went into acute respiratory failure requiring intubation. She is status post ICU stay. Her condition has improved, her care is transferred to the hospitalist service. Acute systolic congestive heart failure Cardiomyopathy probably ischemic EF 35-40% Coronary artery disease with prior stents and 5 vessel CABG Chronic systolic heart failure Hypertension Hyperlipidemia Echo 12/07: LV EF 35-40%. Inferior wall hypokinesis. Feb 2016 Echo EF 45-50%, no WMA Per Cardiology, unlikely to be ACS given stability of cardiac enzymes. DC NTG drip 20 mcg/min, discontinue Heparin drip. Continue aspirin, plavix, atorvastatin 80 mg daily, metoprolol 50 bid. Nuclear stress test shows a fixed perfusion defect. No reversible ischemia. Transition to oral Lasix. Potassium replacement Blood pressure uncontrolled, start losartan. Clonidine as needed. Depression Anxiety Prozac 20 mg po bid. Xanax 0.5 mg by mouth every 8 hours as needed for anxiety-reduce to 0.25mg po q8 PRN Acute hypercapnic respiratory failure Acute COPD exacerbation with probable pneumonia Emphysema Tobacco abuse Extubated, tolerating well Duoneb q4 scheduled and PRN. Transition to oral prednisone. CXR with interstitial opacities. Cardiac pulmonary edema and pneumonia FRANSISCO Renal functions improving. Monitor intake and output. Replace electrolytes as clinically indicated. Avoid nephrotoxins. Bibasilar pneumonia - Started on Zosyn and azithromycin 12/07/16 - F/U Blood and sputum culture Diarrhea: ?from nuclear stress test. Give one dose of Imodium for symptom control. Continue to monitor. PROPH: - Heparin. Famotidine for stress ulcer prophylaxis Discharge Planning PT to evaluate. Likely DC in the next 1-2 days to SNF vs home with home health. May need oxygen. Winifred Vasquez MD Dec 10, 2016 13:16
[2016-12-10] MEDS ORDERED: LOPERAMIDE HCL 2 MG CAP PO ONE ×2 (13:45→21:45)
[2016-12-10] MEDS: FUROSEMIDE 20 MG TAB PO SCH (16:57)
[2016-12-10] MEDS: ATORVASTATIN 80 MG TAB PO SCH (20:52)
[2016-12-10] MEDS ORDERED: predniSONE 20 MG TAB PO SCH (21:00)
[2016-12-10] MEDS: ALPRAZolam 0.5 MG TAB PO PRN (23:55)
[2016-12-11] VITALS (17 sets, daily range): BP systolic 158–172; BP diastolic 76–84; PULSE 54–72; RESP 16–20; TEMP 97.7–98.1; O2SAT 92–98
[2016-12-11] MEDS: RESP: ALBUTEROL 2.5 MG/IPRATROPIUM 0.5 MG NEB (SCH) NEB ×3 (03:59→07:36)
[2016-12-11] MEDS: CHLORHEXIDINE GLUCONATE 2 % 1 PACK (2 CLOTHS)(taper/protocol) TOPICAL SCH (04:00)
[2016-12-11] MEDS: PIPERACIL-TAZO 3.375 GM PREMIX 50 ML IV SCH ×2 (05:44→13:13)
[2016-12-11] MEDS: INSULIN ASPART SUPPLEMENTAL SCALE SQ SCH (05:52)
[2016-12-11 06:32] LABS: HEMATOCRIT 35.9 % (35.0-46.0); MEAN CELL VOLUME 87.2 FL (80.0-100.0); MEAN CORPUSCULAR HEMOGLOBIN 29.2 PG (27.0-34.0); MEAN CORPUSCULAR HGB CONC 33.5 % (32.0-36.0); PLATELET COUNT 212 TH/MM3 (150-450); RED BLOOD COUNT 4.11 MIL/MM3 (4.00-5.30); RED CELL DISTRIBUTION WIDTH 14.6 % (11.6-17.2); REVIEW FLAG FINAL; WHITE BLOOD COUNT 8.4 TH/MM3 (4.0-11.0)
[2016-12-11 06:42] LABS: APTT (PATIENT) 23.6 SEC (24.3-30.1)
[2016-12-11 06:50] LABS: POTASSIUM 3.1 MEQ/L (3.5-5.1)
--- NOTE | 2016-12-11 08:01 | PD.CARD.PN ---
Subjective Subjective Remarks Denies CP, dizziness, palpitations. Mild dyspnea walking to bathroom and back. Objective Medications Item Value Date Time Furosemide 20 mg 12/07/16 0900 (Lasix Inj) BID@,18/IV PUSH 12/08/16 0834 Atorvastatin 80 mg 12/06/16 2100 Calcium HS/PO 12/07/16 205 (Lipitor) Metoprolol 50 mg 12/06/16 2100 Tartrate BID/PO 12/08/16 0836 (Lopressor) Amlodipine 5 mg 12/06/16 1500 Besylate BID/PO 12/08/16 0835 (Norvasc) Nitroglycerin 0.4 mg 12/06/16 1215 (Nitrostat Sl) Q5M PRN/SL 12/06/16 1658 Clopidogrel 75 mg 12/06/16 1600 Bisulfate DAILY/PO 12/08/16 0836 (Plavix) Furosemide 20 mg 12/10/16 1800 (Lasix) BID@,18/PO 12/10/16 165 Losartan Potassium 50 mg 12/09/16 1330 (Cozaar) DAILY/PO Clonidine 0.1 mg 12/09/16 1330 (Catapres) Q6H PRN/PO 12/09/16 1947 Metoprolol 50 mg 12/09/16 0900 Tartrate Q8H/PO 12/10/16 2356 (Lopressor) Aspirin 81 mg 12/08/16 0930 (Ecotrin Ec) DAILY/PO 12/10/16 0844 Potassium Chloride 20 meq 12/06/16 1400 (KCl) DAILY/PO 12/10/16 0845 Current Medications Medications (Trade) Dose Ordered Sig/Samy Route Start Time Stop Time Status Last Admin (NS Flush) 2 ml UNSCH PRN IVF 12/06/16 09:45 12/10/16 20:54 (Nitrostat Sl) 0.4 mg Q5M PRN SL 12/06/16 12:15 12/06/16 16:58 (Morphine Inj) 2 mg Q30M PRN IV PUSH 12/06/16 12:15 12/06/16 17:41 (Proair Hfa Inh) 2 puff Q4HR NEB PRN INH 12/06/16 14:00 12/08/16 20:34 (Norvasc) 5 mg BID PO 12/06/16 15:00 12/10/16 20:52 (Lipitor) 80 mg HS PO 12/06/16 21:00 12/10/16 20:52 (Plavix) 75 mg DAILY PO 12/06/16 16:00 12/10/16 08:44 (PROzac) 20 mg BID PO 12/06/16 16:00 12/10/16 20:52 ([place] 5-325 Mg) 1 tab Q6H PRN PO 12/06/16 14:00 (KCl) 20 meq DAILY PO 12/06/16 14:00 12/10/16 08:45 (Restoril) 15 mg HS PRN PO 12/06/16 14:00 (Spiriva Inh) 18 mcg DAILY INH 12/07/16 09:00 12/10/16 08:40 (Ventolin Hfa Inh) 2 puff QID INH 12/06/16 18:00 12/10/16 16:57 (Duoneb Neb) 1 ampule Q2HR NEB PRN NEB 12/06/16 17:00 12/07/16 10:52 Miscellaneous Information Patient in critical care unit? Ass... Q361D .XX 12/06/16 21:45 (Chlorhexidine 2% Cloth) 3 pack UNSCH PRN TOPICAL 12/06/16 21:45 12/11/16 21:41 (Peridex 0.12% Liq) 15 ml BID@08,20 MT 12/07/16 08:00 12/09/16 20:00 (D50w (Vial) Inj) 50 ml UNSCH PRN IV PUSH 12/07/16 06:45 (Glucagon Inj) 1 mg UNSCH PRN OTHER 12/07/16 06:45 (NovoLOG SUPPLEMENTAL SCALE) 1 Q6H SQ 12/07/16 06:45 Piperacillin Sod/ Tazobactam Sod 50 ml @ 100 mls/hr Q6H IV 12/07/16 12:00 12/11/16 05:44 (Duoneb Neb) 1 ampule Q4HR NEB NEB 12/07/16 12:00 12/11/16 07:36 (Ecotrin Ec) 81 mg DAILY PO 12/08/16 09:30 12/10/16 08:44 (Xanax) 0.25 mg Q8H PRN PO 12/08/16 14:00 10/15/17 23:55 (Lopressor) 50 mg Q8H PO 12/09/16 09:00 12/10/16 23:56 (Cozaar) 50 mg DAILY PO 12/09/16 13:30 12/09/16 15:28 (Catapres) 0.1 mg Q6H PRN PO 12/09/16 13:30 12/09/16 19:47 (Deltasone) 20 mg BID PO 12/10/16 21:00 12/10/16 20:52 (Lasix) 20 mg BID@,18 PO 12/10/16 18:00 12/10/16 16:57 Vital Signs / I&O Vital Signs Date Time Temp Pulse Resp B/P (MAP) Pulse Ox O2 Delivery O2 Flow Rate FiO2 12/11/16 07:39 98 Nasal Cannula 2.00 12/11/16 06:00 54 12/11/16 05:30 59 18 172/82 (112) 94 12/11/16 05:00 64 12/11/16 04:00 60 12/11/16 03:00 67 12/11/16 02:00 62 12/11/16 01:00 65 18 158/82 (107) 94 12/11/16 01:00 64 12/11/16 00:00 72 12/10/16 23:00 65 12/10/16 22:00 72 12/10/16 21:03 96 Nasal Cannula 2.00 12/10/16 21:00 64 12/10/16 20:00 64 12/10/16 20:00 97.4 61 18 169/60 (96) 97 12/10/16 19:00 97 Nasal Cannula 2.00 12/10/16 19:00 68 12/10/16 18:00 62 12/10/16 17:00 68 12/10/16 16:00 58 12/10/16 16:00 98.2 54 18 173/79 (110) 100 12/10/16 15:00 56 12/10/16 14:00 66 12/10/16 13:00 106 12/10/16 12:00 98.1 61 18 173/71 (105) 98 12/10/16 09:00 68 12/10/16 08:00 98.2 71 18 158/85 (109) 93 12/10/16 08:00 53 I/O 12/10/16 12/10/16 12/10/16 12/11/16 12/11/16 12/11/16 07:00 15:00 23:00 07:00 15:00 23:00 Intake Total 240 ml 390 ml 300 ml Output Total 1100 ml 650 ml 300 ml Balance -860 ml -260 ml 0 ml Intake Oral 240 ml 240 ml 300 ml IV Total 150 ml Output Urine Total 1100 ml 650 ml 300 ml # Voids 1 # Bowel Movements 2 1 Physical Exam GENERAL: Well developed, well nourished, no acute distress. HEENT: Jugular venous pressure is normal. CHEST: Diminished breath sounds diffusely. CARDIAC: Regular rate and rhythm without S3, S4, or murmur. ABDOMEN: Soft, nontender, no hepatosplenomegaly. Bowel sounds present. EXTREMITIES: No clubbing, cyanosis, or edema. Laboratory Laboratory Tests Test 12/11/16 05:53 White Blood Count 8.4 TH/MM3 Red Blood Count 4.11 MIL/MM3 Hemoglobin 12.0 GM/DL Hematocrit 35.9 % Mean Corpuscular Volume 87.2 FL Mean Corpuscular Hemoglobin 29.2 PG Mean Corpuscular Hemoglobin Concent 33.5 % Red Cell Distribution Width 14.6 % Platelet Count 212 TH/MM3 Mean Platelet Volume 10.0 FL Activated Partial Thromboplast Time 23.6 SEC Blood Urea Nitrogen 33 MG/DL Creatinine 1.00 MG/DL Random Glucose 102 MG/DL Calcium Level 8.7 MG/DL Sodium Level 139 MEQ/L Potassium Level 3.1 MEQ/L Chloride Level 101 MEQ/L Carbon Dioxide Level 30.0 MEQ/L Anion Gap 8 MEQ/L Estimat Glomerular Filtration Rate 55 ML/MIN Assessment and Plan Problem List: (1) CAD (coronary artery disease) ICD Codes: I25.10 - CAD (coronary artery disease) Status: Chronic Plan: Cardiac status overall appears stable. CP's on admission possibly noncardiac in origin; despite considerable CP in the 24 hours prior to admission , CK's negative for [place]. Nuclear stress test images show no significant ischemia. REC continue medical therapy of her CAD; OK for discharge from my standpoint on current medications (2) Ischemic cardiomyopathy ICD Codes: I25.5 - Ischemic cardiomyopathy Status: Chronic Plan: EF 35-40% by echo. Good diuresis over the weekend. REC continue beta ariane, ARB, diuretic (3) Hypertension, benign ICD Codes: I10 - Hypertension, benign Status: Chronic Plan: Overall suboptimal BP control. Rec increase Losartan dosing. (4) Hyperlipidemia ICD Codes: E78.5 - Hyperlipidemia Status: Chronic Plan: Overall suboptimal lipid profile on high dose atorvastatin. Rec consider change to Crestor as outpatient. Code Status full code Discussed Condition With patient Problem Qualifiers (1) CAD (coronary artery disease): Qualified Codes: I25.119 - Atherosclerotic heart disease of [place] coronary artery with unspecified angina pectoris (2) Hyperlipidemia: Qualified Codes: E78.2 - Mixed hyperlipidemia Fidencio Ramon MD Dec 11, 2016 08:01
[2016-12-11] MEDS: ASPIRIN EC 81 MG TABEC PO SCH ×2 (09:00→10:15)
[2016-12-11] MEDS: ALBUTEROL SULFATE 90 MCG/ACT HFA 18 GM INHALER INH SCH ×2 (09:00→13:00)
[2016-12-11] MEDS: LOSARTAN 50 MG TAB PO SCH ×2 (09:00→10:01)
[2016-12-11] MEDS: CLOPIDOGREL 75 MG TAB PO SCH (09:59)
[2016-12-11] MEDS: FLUoxetine HCL 20 MG CAP PO SCH (10:00)
[2016-12-11] MEDS: FUROSEMIDE 20 MG TAB PO SCH (10:00)
[2016-12-11] MEDS: amLODIPine BESYLATE 5 MG TAB PO SCH (10:01)
[2016-12-11] MEDS: TIOTROPIUM BROMIDE 18 MCG INH INH SCH (10:04)
[2016-12-11] MEDS: ALBUTEROL SULFATE 90 MCG/ACT HFA 8 GM INHALER INH PRN (10:06)
[2016-12-11] MEDS: METOPROLOL TARTRATE 50 MG TAB PO SCH (10:15)
[2016-12-11] MEDS: POTASSIUM CHLORIDE 20 MEQ CONTROLLED RELEASE TAB PO SCH (10:15)
--- NOTE | 2016-12-11 10:25 | HHI.PR ---
Subjective Remarks Follow-up coronary artery disease/ischemic cardiomyopathy 12/11/16-patient seen and examined, denies any chest pain or shortness of breath. Complains of diarrheal episode. BP slightly up. She states, she would only be discharged to [facility] otherwise she will go home with home health care. Objective Vitals Vital Signs Date Time Temp Pulse Resp B/P (MAP) Pulse Ox O2 Delivery O2 Flow Rate FiO2 12/11/16 07:39 98 Nasal Cannula 2.00 12/11/16 06:00 54 12/11/16 05:30 59 18 172/82 (112) 94 12/11/16 05:00 64 12/11/16 04:00 60 12/11/16 03:00 67 12/11/16 02:00 62 12/11/16 01:00 65 18 158/82 (107) 94 12/11/16 01:00 64 12/11/16 00:00 72 12/10/16 23:00 65 12/10/16 22:00 72 12/10/16 21:03 96 Nasal Cannula 2.00 12/10/16 21:00 64 12/10/16 20:00 64 12/10/16 20:00 97.4 61 18 169/60 (96) 97 12/10/16 19:00 97 Nasal Cannula 2.00 12/10/16 19:00 68 12/10/16 18:00 62 12/10/16 17:00 68 12/10/16 16:00 58 12/10/16 16:00 98.2 54 18 173/79 (110) 100 12/10/16 15:00 56 12/10/16 14:00 66 12/10/16 13:00 106 12/10/16 12:00 98.1 61 18 173/71 (105) 98 I/O 12/10/16 12/10/16 12/10/16 12/11/16 12/11/16 12/11/16 07:00 15:00 23:00 07:00 15:00 23:00 Intake Total 240 ml 390 ml 300 ml Output Total 1100 ml 650 ml 300 ml Balance -860 ml -260 ml 0 ml Intake Oral 240 ml 240 ml 300 ml IV Total 150 ml Output Urine Total 1100 ml 650 ml 300 ml # Voids 1 # Bowel Movements 2 1 Result Diagram: 12/11/16 0553 12/11/16 0553 Imaging Last Impressions Myocardial Perfusion Scan Nuc Med 12/10/16 0000 Signed Impressions: Service Date/Time: Saturday, December 10, 2016 09:54 - CONCLUSION: Large fixed persistent perfusion defect involving the inferior wall and lateral wall without significant change compared to 2015. No definite ischemic myocardial changes are seen. RISK CATEGORY: low Doroteo Pathak MD Chest X-Ray 12/08/16 0000 Signed Impressions: Service Date/Time: Thursday, December 08, 2016 09:40 - CONCLUSION: Improvement with mild interstitial edema persisting. Bayron Jimenez MD FACR Head CT 12/07/16 0000 Signed Impressions: Service Date/Time: , December 07, 2016 11:12 - CONCLUSION: 1. No acute intracranial abnormality identified. Wayne Jimenez MD CT Angiography 12/07/16 0000 Signed Impressions: Service Date/Time: , December 07, 2016 11:16 - CONCLUSION: 1. No evidence of pulmonary embolism. 2. Upper lobe interstitial prominence suggesting mild interstitial edema. 3. Consolidating airspace disease with small bilateral effusions in both lower lobes. 4. Calcific coronary artery disease. 5. Fluid filled stomach with indwelling nasogastric tube. Silvestre Storey MD Objective Remarks GENERAL: NAD SKIN: Warm and dry. HEAD: Normocephalic. EYES: No scleral icterus. No injection or drainage. NECK: Supple, trachea midline. No JVD or lymphadenopathy. CARDIOVASCULAR: Regular rate and rhythm without murmurs, gallops, or rubs. RESPIRATORY: Breath sounds equal bilaterally. No accessory muscle use. GASTROINTESTINAL: Abdomen soft, non-tender, nondistended. MUSCULOSKELETAL: No cyanosis, or edema. BACK: Nontender without obvious deformity. No CVA tenderness. Procedures none A/P Problem List: (1) CAD (coronary artery disease) ICD Code: I25.10 - CAD (coronary artery disease) Status: Chronic (2) Ischemic cardiomyopathy ICD Code: I25.5 - Ischemic cardiomyopathy Status: Chronic (3) Hypertension, benign ICD Code: I10 - Hypertension, benign Status: Chronic (4) COPD (chronic obstructive pulmonary disease) ICD Code: J44.9 - Chronic obstructive pulmonary disease Status: Chronic (5) Hyperlipidemia ICD Code: E78.5 - Hyperlipidemia Status: Chronic Assessment and Plan 71-year-old female with Acute systolic congestive heart failure Ischemic Cardiomyopathy EF 35-40% Coronary artery disease with prior stents and 5 vessel CABG Chronic systolic heart failure Hypertension Hyperlipidemia Echo 12/07: LV EF 35-40%. Inferior wall hypokinesis. Feb 2016 Echo EF 45-50%, no WMA Continue aspirin, plavix, atorvastatin 80 mg daily, metoprolol 50 bid, losartan 100 mg daily. Nuclear stress test shows a fixed perfusion defect. No reversible ischemia. Appreciate input from cardiology Depression Anxiety Prozac 20 mg po bid. Xanax 0.5 mg by mouth every 8 hours as needed for anxiety-reduce to 0.25mg po q8 PRN Acute hypercapnic respiratory failure Acute COPD exacerbation with probable pneumonia Emphysema Tobacco abuse Extubated, tolerating well Duoneb q4 scheduled and PRN. Continue oral prednisone. CXR with interstitial opacities. Cardiac pulmonary edema and pneumonia FRANSISCO Renal functions improving. Monitor intake and output. Avoid nephrotoxins. Bibasilar pneumonia - Discontinue Zosyn on discharge and start azithromycin 12/12/16 Diarrhea: ?from nuclear stress test. Imodium when necessary PROPH: - Heparin. Famotidine for stress ulcer prophylaxis Problem Qualifiers (1) CAD (coronary artery disease): Qualified Codes: I25.119 - Atherosclerotic heart disease of [place] coronary artery with unspecified angina pectoris (2) Hyperlipidemia: Qualified Codes: E78.2 - Mixed hyperlipidemia David Natarajan MD Dec 11, 2016 10:25
--- NOTE | 2016-12-11 10:29 | HHI.DS ---
Discharge Summary Admission Date Dec 06, 2016 at 12:03 Discharge Date: Dec 11, 2016 Admitting Diagnosis non-STEMI (1) CAD (coronary artery disease) ICD Code: I25.10 - CAD (coronary artery disease) Status: Chronic (2) Ischemic cardiomyopathy ICD Code: I25.5 - Ischemic cardiomyopathy Status: Chronic (3) Hypertension, benign ICD Code: I10 - Hypertension, benign Status: Chronic (4) COPD (chronic obstructive pulmonary disease) ICD Code: J44.9 - Chronic obstructive pulmonary disease Status: Chronic (5) Hyperlipidemia ICD Code: E78.5 - Hyperlipidemia Status: Chronic Procedures none Brief History - From Admission Written by Elinor Muñoz, acting as scribe for Dr. Dewey on 12/06/16 at 15: 21. This is a 71-year-old female with a past medical history significant for coronary artery disease status post previous [place] with prior CABG 5 vessels and previous cardiac stent implant 11, hypertension, COPD with ongoing tobaccoism, dyslipidemia and depression who presents to [facility] ED with complaints of chest pain. Patient reports waking up around 4:30 this morning with a left-sided chest pressure that she rates at 10 out of 10 with associated nausea, shortness of breath and diaphoresis. She endorses radiation of pain down the left arm. Patient states her chest pain improved significantly after she took nitroglycerin. Approximately 2 hours after taking the nitroglycerin, patient states she went up to go to the restroom and again experienced severe chest pain with shortness of breath and diaphoresis. She then took another nitroglycerin and called 911. Patient states she's actually had difficulty breathing for the past several days with minimal exertion just walking from her bed to the bathroom. She also admits to orthopnea. She does not use oxygen at home. She denies any lower extremity swelling. She reports a mild cough which is chronic. She was actually seen by her public service director yesterday who attributed her shortness of breath to her COPD and continued tobacco use. In the ED, EKG was obtained which revealed normal sinus rhythm with lateral and inferior T- wave inversions and inferior Q waves unchanged from prior EKG 03/27/16. Patient 's initial troponin came back elevated at 0.42. Patient was started on heparin drip. Cardiology was consulted while patient was in the ED and plans for cardiac catheterization tomorrow. CBC/BMP: 12/11/16 0553 12/11/16 0553 Significant Findings Laboratory Tests Test 12/08/16 11:20 12/08/16 15:57 12/09/16 05:15 12/09/16 07:30 Red Blood Count 3.78 MIL/MM3 (4.00-5.30) 3.90 MIL/MM3 (4.00-5.30) Hemoglobin 10.9 GM/DL (11.6-15.3) Hematocrit 33.1 % (35.0-46.0) 34.4 % (35.0-46.0) Neutrophils (%) (Auto) 92.1 % (16.0-70.0) Lymphocytes (%) (Auto) 6.4 % (9.0-44.0) Neutrophils # (Auto) 9.5 TH/MM3 (1.8-7.7) Lymphocytes # (Auto) 0.7 TH/MM3 (1.0-4.8) Blood Urea Nitrogen 26 MG/DL (7-18) 29 MG/DL (7-18) Creatinine 1.30 MG/DL (0.50-1.00) 1.25 MG/DL (0.50-1.00) Random Glucose 147 MG/DL (74-106) 126 MG/DL (74-106) Albumin 3.3 GM/DL (3.4-5.0) Calcium Level 8.2 MG/DL (8.5-10.1) Potassium Level 3.2 MEQ/L (3.5-5.1) Estimat Glomerular Filtration Rate 40 ML/MIN (>89) 42 ML/MIN (>89) Activated Partial Thromboplast Time 34.8 SEC (24.3-30.1) Test 12/09/16 13:00 12/10/16 06:22 12/11/16 05:53 Activated Partial Thromboplast Time 36.3 SEC (24.3-30.1) 23.8 SEC (24.3-30.1) 23.6 SEC (24.3-30.1) Red Blood Count 3.90 MIL/MM3 (4.00-5.30) Hemoglobin 11.5 GM/DL (11.6-15.3) Hematocrit 34.3 % (35.0-46.0) Blood Urea Nitrogen 32 MG/DL (7-18) 33 MG/DL (7-18) Creatinine 1.18 MG/DL (0.50-1.00) Random Glucose 115 MG/DL (74-106) Estimat Glomerular Filtration Rate 45 ML/MIN (>89) 55 ML/MIN (>89) Potassium Level 3.1 MEQ/L (3.5-5.1) Imaging Last Impressions Myocardial Perfusion Scan Nuc Med 12/10/16 0000 Signed Impressions: Service Date/Time: Saturday, December 10, 2016 09:54 - CONCLUSION: Large fixed persistent perfusion defect involving the inferior wall and lateral wall without significant change compared to 2015. No definite ischemic myocardial changes are seen. RISK CATEGORY: low Doroteo Pathak MD Chest X-Ray 12/08/16 0000 Signed Impressions: Service Date/Time: Thursday, December 08, 2016 09:40 - CONCLUSION: Improvement with mild interstitial edema persisting. Bayron Jimenez MD FACR Head CT 12/07/16 0000 Signed Impressions: Service Date/Time: November 11:12 - CONCLUSION: 1. No acute intracranial abnormality identified. Wayne Jimenez MD CT Angiography 12/07/16 0000 Signed Impressions: Service Date/Time: November 11:16 - CONCLUSION: 1. No evidence of pulmonary embolism. 2. Upper lobe interstitial prominence suggesting mild interstitial edema. 3. Consolidating airspace disease with small bilateral effusions in both lower lobes. 4. Calcific coronary artery disease. 5. Fluid filled stomach with indwelling nasogastric tube. Silvestre Storey MD PE at Discharge GENERAL: NAD SKIN: Warm and dry. HEAD: Normocephalic. EYES: No scleral icterus. No injection or drainage. NECK: Supple, trachea midline. No JVD or lymphadenopathy. CARDIOVASCULAR: Regular rate and rhythm without murmurs, gallops, or rubs. RESPIRATORY: Breath sounds equal bilaterally. No accessory muscle use. GASTROINTESTINAL: Abdomen soft, non-tender, nondistended. MUSCULOSKELETAL: No cyanosis, or edema. BACK: Nontender without obvious deformity. No CVA tenderness. Hospital Course Admitted secondary to atypical chest pain for which cardiology was consulted and she underwent a nuclear stress test without any evidence of ischemia. Her blood pressure medication was adjusted accordingly and patient was started on losartan's which was increased to 100 mg daily. She responded well to diuresis with Lasix secondary to acute on chronic CHF. Patient was treated for community -acquired bacterial pneumonia, initially on IV Zosyn and she will be discharged on by mouth Zithromax 3 more days. She responded well to steroid therapy as well as bronchodilator secondary to acute COPD exacerbation. Physical therapy was consulted. All electrolyte abnormalities were corrected accordingly including hypokalemia. DVT and GI prophylaxis were provided. Pt Condition on Discharge: Stable Discharge Disposition: Discharge to SNF Discharge Time: <= 30 minutes Discharge Instructions DIET: Follow Instructions for: Heart Healthy Diet Activities you can perform: Regular-No Restrictions Follow up Referrals: Cardiology PCP Follow-up - 2-3 Days New Medications: Alprazolam (Xanax) 0.5 Mg Tab 0.25 MG PO Q8H PRN for ANXIETY, #[address] (Adult Aspirin EC Low Strength) 81 Mg Tabec 81 MG PO DAILY for Prevent Blood Clot, #30 TAB 3 Refills Azithromycin (Azithromycin) 250 Mg Tab 250 MG PO DAILY for Infection, #3 TAB Furosemide (Furosemide) 20 Mg Tab 20 MG PO BID@09,18 for Prevent Heart Failure, #60 TAB 11 Refills Hydrocodone-Acetaminophen (Hydrocodone-Acetaminophen) 5-325 mg Tab 1 TAB PO Q6H PRN for PAIN 1-10, #10 TAB Loperamide HCl (Hm Loperamide HCl) 2 Mg Cap 2 MG PO UNSCH PRN for DIARRHEA, #10 CAP Losartan (Cozaar) 50 Mg Tab 100 MG PO DAILY for Blood Pressure Management, #30 TAB 11 Refills Prednisone (Prednisone) 20 Mg Tab 20 MG PO DAILY@0800 for Breathing Treatment, #7 TAB Temazepam (Restoril) 15 Mg Cap 15 MG PO HS PRN for INSOMNIA, #10 CAP Tiotropium Inh (Spiriva Handihaler) 18 Mcg Cap 18 MCG INH DAILY for Breathing Treatment, #1 CAP 3 Refills 1 capsule = 18 mcg Continued Medications: Albuterol 18 GM Inh (Ventolin Hfa 18 GM Inh) 90 Mcg/Act Aer 2 PUFF INH Q4-6H PRN for SHORTNESS OF BREATH, #1 INHALER 0 Refills Amlodipine (Amlodipine) 5 Mg Tab 5 MG PO BID for Blood Pressure Management, #30 TAB 0 Refills Atorvastatin (Atorvastatin) 80 Mg Tab 80 MG PO HS for Cholesterol Management, #30 TAB 0 Refills Clopidogrel (Clopidogrel) 75 Mg Tab 75 MG PO DAILY for Blood Clot Prevention, #30 TAB 0 Refills Fluoxetine (Prozac) 20 Mg Cap 20 MG PO BID, #30 CAP 0 Refills Ipratropium-Albuterol Inh (Combivent Respimat Inh) 20-100 Prison/Act Aero 1 PUFF INH BID for Broncospasm, #1 INHALER 0 Refills Isosorbide Mononitrate ER (Isosorbide Mononitrate ER) 30 Mg Liza 30 MG PO DAILY for Prevent Chest Pain, #30 TAB 0 Refills Metoprolol Tartrate (Metoprolol Tartrate) 50 Mg Tab 50 MG PO BID, #60 TAB 0 Refills Potassium Chloride ER (Potassium Chloride ER) 20 Meq Tab 20 MEQ PO DAILY for Electrolyte Replacement, #30 TAB 0 Refills Discontinued Medications: Alprazolam (Alprazolam) 0.5 Mg Tab 0.5 MG PO TID PRN for ANXIETY, TAB 0 Refills Furosemide (Lasix) 20 Mg Tab 20 MG PO BID for fluid, #60 TAB 0 Refills Take 20 mg twice daily for 7 days then 20 mg a day Hydrocodone-Acetaminophen (Hydrocodone-Acetaminophen) 5-325 mg Tab 1 TAB PO Q6H PRN for PAIN, TAB 0 Refills Temazepam (Temazepam) 15 Mg Cap 15 MG PO HS PRN for INSOMNIA, #30 CAP 0 Refills David Natarajan MD Dec 11, 2016 10:29
[2016-12-11] MEDS ORDERED: SPIRCAP INH (10:36)
[2016-12-11] MEDS ORDERED: COZA50TA PO (10:36)
[2016-12-11] MEDS ORDERED: ASPI-99 PO (10:36)
[2016-12-11] MEDS ORDERED: REST15CA PO (10:36)
[2016-12-11] MEDS ORDERED: LOPE2CAP92 PO (10:36)
[2016-12-11] MEDS ORDERED: ALPR.5 PO (10:36)
[2016-12-11] MEDS ORDERED: HYDR-3516 PO (10:36)
[2016-12-11] MEDS ORDERED: FURO20TA PO (10:36)
[2016-12-11] MEDS ORDERED: AZIT250T3 PO (10:36)
[2016-12-11] MEDS ORDERED: PRED20 PO (10:36)
[2016-12-11] MEDS: ALPRAZolam 0.5 MG TAB PO PRN (10:57)
[2016-12-11] MEDS ORDERED: LOPERAMIDE HCL 2 MG CAP PO PRN (11:00)
[2016-12-11] MEDS ORDERED: POTASSIUM CHLORIDE 10 MEQ CONTROLLED RELEASE TAB PO ONE (11:00)
[2016-12-11] MEDS ORDERED: ISOSORBIDE MONONITRATE 30 MG TAB PO ONE (12:00)
[2016-12-12] MEDS ORDERED: predniSONE 20 MG TAB PO SCH (08:00)
[2016-12-12] MEDS ORDERED: AZITHROMYCIN 250 MG TAB PO SCH (09:00)
[2016-12-12] MEDS ORDERED: POTASSIUM CHLORIDE 10 MEQ CONTROLLED RELEASE TAB PO SCH (09:00)
== END 2016-12-11 17:18 | DRG 280 ==
LOC: NEPE 09:13 → NEDA 12:03 → HIMN 15:50 → HCIN 12-09 22:00
PROVIDERS: ADMIT Hospitalist; ATTEND Hospitalist
PROC: 0BH17EZ Insertion of Endotracheal Airway into Trachea, Via Natural or Artificial Opening (ICD-10-PCS; principal; 2016-12-07)
PROC: 5A1935Z Respiratory Ventilation, Less than 24 Consecutive Hours (ICD-10-PCS; 2016-12-07)
DX: I21.4 Non-ST elevation (NSTEMI) myocardial infarction (principal); I50.23 Acute on chronic systolic (congestive) heart failure; J96.02 Acute respiratory failure with hypercapnia; J15.9 Unspecified bacterial pneumonia; N17.9 Acute kidney failure, unspecified; I11.0 Hypertensive heart disease with heart failure; E87.5 Hyperkalemia; E87.1 Hypo-osmolality and hyponatremia; J44.1 Chronic obstructive pulmonary disease with (acute) exacerbation; J44.0 Chronic obstructive pulmonary disease with (acute) lower respiratory infection; I25.110 Atherosclerotic heart disease of native coronary artery with unstable angina pectoris; Z95.1 Presence of aortocoronary bypass graft; Z95.5 Presence of coronary angioplasty implant and graft; I25.2 Old myocardial infarction; I25.5 Ischemic cardiomyopathy; F41.8 Other specified anxiety disorders; F17.210 Nicotine dependence, cigarettes, uncomplicated; H91.93 Unspecified hearing loss, bilateral; K21.9 Gastro-esophageal reflux disease without esophagitis; R19.7 Diarrhea, unspecified; E78.5 Hyperlipidemia, unspecified; Z98.84 Bariatric surgery status
CPT/HCPCS: 31500; 36600; 70450; 71010; 71275; 78452; 80048; 80053; 80061; 80076; 82550; 82805; 82948; 83735; 83880; 84484; 85025; 85027; 85610; 85730; 87040; 87070; 87205; 87641; 93005; 93017; 93306; 94002; 94640; 94664; 96374; 96375; A9502; J0456; J1644; J1940; J2270; J2405; J2543; J2785; J2930; J3010; J7030; J7050; J7512; Q9967

== ENCOUNTER 2016-12-19 09:18 | Inpatient (IN) | payer OTHER, MEDICAID, MEDICARE ==
[~2016-12-19] VITALS: Ht 160 cm; Wt 81.4 kg
[2016-12-19] VITALS (11 sets, daily range): BP systolic 141–162; BP diastolic 61–79; PULSE 79–98; RESP 16–22; TEMP 98–100.1; O2SAT 92–97
[~2016-12-19 09:18] MED LIST changes: +ALPR.5 PO; -ALPR0.5T3 PO; +ASPI-99 PO; +AZIT250T3 PO; +COZA50TA PO; -FURO1TAB62 PO; +FURO20TA PO; +HYDR-3516 PO; +LOPE2CAP92 PO; -MULT-116 PO; -OMEP20TA PO; +PRED20 PO; +PROZ20CA11 PO; +REST15CA PO; +SPIRCAP INH; -VITA500T49 PO
[2016-12-19] MEDS ORDERED: SODIUM CHLOR 0.9% 1000 ML INJ 1,000 ML IV ONE (09:28)
[2016-12-19] MEDS ORDERED: METO-426 PO (09:29)
[2016-12-19] MEDS ORDERED: ALPR0.5T3 PO (09:29)
[2016-12-19] MEDS ORDERED: ONDANSETRON HCL 4 MG/2 ML VIAL IV PUSH ONE (09:30)
[2016-12-19] MEDS ORDERED: MORPHINE SULFATE 4 MG/ML INJ IV PUSH ONE (09:30)
[2016-12-19] MEDS ORDERED: SODIUM CHLORIDE 0.9% FLUSH 10 ML FLUSH IVF PRN (09:30)
--- NOTE | 2016-12-19 09:35 | PD ---
HPI Chief Complaint: diarrhea Time Seen by Provider: 09:28 Travel History International Travel<30 days: No Contact w/Intl Traveler<30days: No Traveled to known affect area: No History of Present Illness HPI The patient is a 71-year-old female who presents to the emergency department for nausea, vomiting, diarrhea, and abdominal pain. The patient states she is had diarrhea since she was placed on antibiotics for chest pain during her previous hospitalization earlier in November. The patient states she has a history of allergies antibiotics and over the last 2 years has developed diarrhea while on antibiotics. The patient states the diarrhea as loose, watery , and recently had a mucus-like component without any visible blood. The patient also complains of mild nausea, vomiting, and intermittent abdominal cramping which is diffuse. The patient saw her primary physician at [facility] yesterday and received IV fluids and Zofran with mild improvement of her symptoms. However, the diarrhea has continued today, the patient was scheduled for outpatient studies, however, developed worsening symptoms. The patient states she's had intermittent chills and some generalized weakness, was noted to have an axillary temperature by EMS of 101.4. The patient is unsure if she has any history of clostridium difficile. She does have a history of previous abdominal surgeries including lab and an appendectomy. Patient states the lab and was performed in [place], [place]. Patient denies any acute chest pain , does note shortness of breath which is chronic secondary to COPD. PFSH Past Medical History Hx Anticoagulant Therapy: Yes (Plavix) Arthritis: Yes Asthma: No Autoimmune Disease: No Blood Disorders: No Anxiety: Yes Depression: Yes (sees grief therapist) Heart Rhythm Problems: No Cancer: No Cardiac Catheterization: Yes Cardiovascular Problems: Yes High Cholesterol: Yes Chemotherapy: No Chest Pain: Yes Congestive Heart Failure: No COPD: Yes Cerebrovascular Accident: No Coronary Artery Disease: Yes Developmental Delay: No Diabetes: No Diminished Hearing: Yes ([place] both ears) Endocrine: No Gastrointestinal Disorders: Yes (LAP BAND) GERD: Yes Genitourinary: Yes Headaches: Yes Hepatitis: No Hiatal Hernia: No Hypertension: Yes Immune Disorder: No Implanted Vascular Access Dvce: Yes Kidney Stones: No Musculoskeletal: Yes Neurologic: No Psychiatric: Yes (depression) Reproductive: No Respiratory: Yes Immunizations Current: Yes Migraines: Yes Myocardial Infarction: Yes ( 2005) Renal Failure: No Seizures: No Sickle Cell Disease: No Sleep Apnea: No Thyroid Disease: No Triglycerides - High: Yes Ulcer: No PNEUMOCCOCAL Vaccine (Year): 3 Menopausal: Yes Past Surgical History Abdominal Surgery: Yes (lap band) AICD: No Appendectomy: Yes Arteriovenous Shunt: No Body Medical Devices: lap band port Cardiac Surgery: Yes (cabg) Cholecystectomy: No Coronary Artery Bypass Graft: Yes Coronary Stent: Yes (11 STENTS) Ear Surgery: Yes Endocrine Surgery: No Eye Surgery: Yes (evangelista cataract) Genitourinary Surgery: Yes (bladder suspension) Gynecologic Surgery: Yes (hysterectomy) Hysterectomy: Yes Insulin Pump: No Joint Replacement: No Neurologic Surgery: No Oral Surgery: No Pacemaker: No Thoracic Surgery: Yes (cabg) Other Surgery: Yes (LEFT BREAST LUMPECTOMY) Social History Alcohol Use: No Tobacco Use: Yes Substance Use: No Allergies-Medications (Allergen,Severity, Reaction): Coded Allergies: lisinopril (Unverified Allergy, Severe, Cough, 12/19/16) PERSISTENT COUGH losartan (Verified Allergy, Severe, Hives, 12/19/16) codeine (Unverified Allergy, Mild, NAUSEA, 12/19/16) PATIENT STATES SHE IS NOT ALLERGIC TO MEDICATION cephalexin (Unverified Allergy, Unknown, Nausea/Vomiting, 12/19/16) fluticasone (Unverified Allergy, Unknown, 12/19/16) THROAT SWELLING fluticasone furoate (Unverified Allergy, Unknown, 12/19/16) THROAT SWELLING salmeterol (Unverified Allergy, Unknown, 12/19/16) THROAT SWELLING azithromycin (Verified Adverse Reaction, Intermediate, DIARRHEA, 12/19/16) Reported Meds & Prescriptions Reported Meds & Active Scripts Active Prednisone 20 Mg Tab 20 Mg PO DAILY@0800 Hm Loperamide HCl (Loperamide HCl) 2 Mg Cap 2 Mg PO UNSCH PRN Furosemide 20 Mg Tab 20 Mg PO BID@,18 Restoril (Temazepam) 15 Mg Cap 15 Mg PO HS PRN Hydrocodone-Acetaminophen 5-325 mg Tab 1 Tab PO Q6H PRN Adult Aspirin EC Low Strength (Aspirin) 81 Mg Tabec 81 Mg PO DAILY Potassium Chloride ER (Potassium Chloride) 20 Meq Tab 20 Meq PO DAILY Reported Alprazolam 0.5 Mg Tab 0.5 Mg PO Q8H PRN Metoprolol Tartrate 75 Mg Tab 75 Mg PO BID Prozac (Fluoxetine HCl) 20 Mg Cap 20 Mg PO BID Combivent Respimat Inh (Ipratropium-Albuterol Inh) 20-100 Senior Living/Act Aero 1 Puff INH BID Ventolin Hfa 18 GM Inh (Albuterol Sulfate) 90 Mcg/Act Aer 2 Puff INH Q4-6H PRN Atorvastatin (Atorvastatin Calcium) 80 Mg Tab 80 Mg PO HS Amlodipine (Amlodipine Besylate) 5 Mg Tab 5 Mg PO BID Isosorbide Mononitrate ER (Isosorbide Mononitrate) 30 Mg Liza 30 Mg PO DAILY Clopidogrel (Clopidogrel Bisulfate) 75 Mg Tab 75 Mg PO DAILY Review of Systems Except as stated in HPI: all other systems reviewed are Neg General / Constitutional: Positive: Fever, Chills HENT: No: Lightheadedness Cardiovascular: No: Chest Pain or Discomfort Respiratory: Positive: Shortness of Breath (chronic shortness of breath secondary to COPD) Gastrointestinal: Positive: Nausea, Vomiting, Diarrhea, Abdominal Pain Genitourinary: No: Dysuria Musculoskeletal: Positive: Weakness Neurologic: Positive: Weakness Physical Exam Narrative GENERAL: Awake, alert, nontoxic-appearing 71-year-old female who appears her stated age and is in no acute respiratory distress. SKIN: Focused skin assessment warm/dry. HEAD: Atraumatic. Normocephalic. EYES: No injection or drainage. ENT: No nasal bleeding or discharge. Slightly dry mucous membranes. NECK: Trachea midline. No JVD. CARDIOVASCULAR: Regular rate and rhythm. No murmur appreciated. Heart rate in the 80s. RESPIRATORY: No accessory muscle use. Prolonged expiratory phase with a few intermittent plate wheezes. GASTROINTESTINAL: Abdomen soft, mild diffuse tenderness but no guarding or rigidity. MUSCULOSKELETAL: No obvious deformities. No clubbing. No cyanosis. No edema. NEUROLOGICAL: Awake and alert. No obvious cranial nerve deficits. Motor grossly within normal limits. Normal speech. PSYCHIATRIC: Appropriate mood and affect; insight and judgment normal. Data Data Last Documented VS Vital Signs Date Time Temp Pulse Resp B/P (MAP) Pulse Ox O2 Delivery O2 Flow Rate FiO2 12/19/16 12:39 98 20 158/79 (105) 94 Nasal Cannula 2.00 12/19/16 10:45 100.1 Orders Orders Complete Blood Count With Diff (12/19/16 09:28) Comprehensive Metabolic Panel (12/19/16 09:28) Urinalysis - C+S If Indicated (12/19/16 09:28) Lipase (12/19/16 09:28) Ct Abd/Pel W/O Iv Contrast (12/19/16 ) Iv Access Insert/Monitor (12/19/16 09:28) Ecg Monitoring (12/19/16 09:28) Oximetry (12/19/16 09:28) Ondansetron Inj (Zofran Inj) (12/19/16 09:30) Sodium Chlor 0.9% 1000 Ml Inj (Ns 1000 M (12/19/16 09:28) Sodium Chloride 0.9% Flush (Ns Flush) (12/19/16 09:30) C Diff Toxin Pcr (12/19/16 09:28) Enteric Path (Stool) (12/19/16 09:28) Lactic Acid (12/19/16 09:28) Morphine Inj (Morphine Inj) (12/19/16 09:30) Metronidazole 500 Mg Inj (Flagyl 500 Mg (12/19/16 11:45) Admit Order (Ed Use Only) (12/19/16 13:57) Labs Laboratory Tests Test 12/19/16 09:35 12/19/16 10:41 White Blood Count 25.1 TH/MM3 Red Blood Count 4.00 MIL/MM3 Hemoglobin 11.6 GM/DL Hematocrit 34.8 % Mean Corpuscular Volume 86.9 FL Mean Corpuscular Hemoglobin 29.1 PG Mean Corpuscular Hemoglobin Concent 33.5 % Red Cell Distribution Width 14.6 % Platelet Count 177 TH/MM3 Mean Platelet Volume 9.0 FL Neutrophils (%) (Auto) 86.9 % Lymphocytes (%) (Auto) 4.7 % Monocytes (%) (Auto) 5.3 % Eosinophils (%) (Auto) 0.0 % Basophils (%) (Auto) 3.1 % Neutrophils # (Auto) 21.8 TH/MM3 Lymphocytes # (Auto) 1.2 TH/MM3 Monocytes # (Auto) 1.3 TH/MM3 Eosinophils # (Auto) 0.0 TH/MM3 Basophils # (Auto) 0.8 TH/MM3 CBC Comment AUTO DIFF Differential Comment AUTO DIFF CONFIRMED Toxic Granulation 1+ Platelet Estimate NORMAL Platelet Morphology Comment NORMAL Blood Urea Nitrogen 20 MG/DL Creatinine 1.30 MG/DL Random Glucose 105 MG/DL Total Protein 6.2 GM/DL Albumin 3.0 GM/DL Calcium Level 8.0 MG/DL Alkaline Phosphatase 67 U/L Aspartate Amino Transf (AST/SGOT) 57 U/L Alanine Aminotransferase (ALT/SGPT) 33 U/L Total Bilirubin 0.8 MG/DL Sodium Level 133 MEQ/L Potassium Level 3.3 MEQ/L Chloride Level 98 MEQ/L Carbon Dioxide Level 26.5 MEQ/L Anion Gap 9 MEQ/L Estimat Glomerular Filtration Rate 40 ML/MIN Lactic Acid Level 1.5 mmol/L Lipase 40 U/L [facility] Medical Decision Making Medical Screen Exam Complete: Yes Emergency Medical Condition: Yes Medical Record Reviewed: Yes Interpretation(s) CT of the abdomen and pelvis reveals mild induration of the fat about the right colon and findings suggestive of diffuse wall thickening in the right colon and transverse colon. This is a nonspecific constellation of findings would raise the possibility of an inflammatory infectious process. Multiple small sigmoid diverticula without radiographic evidence of diverticulitis. Small bilateral pleural effusions. Laboratory Tests Test 12/19/16 09:35 12/19/16 10:41 White Blood Count 25.1 TH/MM3 Red Blood Count 4.00 MIL/MM3 Hemoglobin 11.6 GM/DL Hematocrit 34.8 % Mean Corpuscular Volume 86.9 FL Mean Corpuscular Hemoglobin 29.1 PG Mean Corpuscular Hemoglobin Concent 33.5 % Red Cell Distribution Width 14.6 % Platelet Count 177 TH/MM3 Mean Platelet Volume 9.0 FL Neutrophils (%) (Auto) 86.9 % Lymphocytes (%) (Auto) 4.7 % Monocytes (%) (Auto) 5.3 % Eosinophils (%) (Auto) 0.0 % Basophils (%) (Auto) 3.1 % Neutrophils # (Auto) 21.8 TH/MM3 Lymphocytes # (Auto) 1.2 TH/MM3 Monocytes # (Auto) 1.3 TH/MM3 Eosinophils # (Auto) 0.0 TH/MM3 Basophils # (Auto) 0.8 TH/MM3 CBC Comment AUTO DIFF Differential Comment AUTO DIFF CONFIRMED Toxic Granulation 1+ Platelet Estimate NORMAL Platelet Morphology Comment NORMAL Blood Urea Nitrogen 20 MG/DL Creatinine 1.30 MG/DL Random Glucose 105 MG/DL Total Protein 6.2 GM/DL Albumin 3.0 GM/DL Calcium Level 8.0 MG/DL Alkaline Phosphatase 67 U/L Aspartate Amino Transf (AST/SGOT) 57 U/L Alanine Aminotransferase (ALT/SGPT) 33 U/L Total Bilirubin 0.8 MG/DL Sodium Level 133 MEQ/L Potassium Level 3.3 MEQ/L Chloride Level 98 MEQ/L Carbon Dioxide Level 26.5 MEQ/L Anion Gap 9 MEQ/L Estimat Glomerular Filtration Rate 40 ML/MIN Lactic Acid Level 1.5 mmol/L Lipase 40 U/L Differential Diagnosis Differential diagnoses includes C. difficile colitis, pseudomembranous colitis, infectious diarrhea, inflammatory diarrhea, medication side effect, dehydration , diverticulitis, gastroenteritis, viral syndrome. Narrative Course IV was established, labs were drawn and sent, and the patient was placed on cardiac telemetry monitoring and continuous pulse oximetry monitoring. The patient was administered morphine, Zofran, and IV fluids. C. difficile PCR was ordered via stool. The patient's white count is elevated at 25.1, lactic acid and LFTs are unremarkable. The patient's CT reveals mild induration of fat about the right colon and findings suggestive of diffuse wall thickening in the right colon and transverse colon, most likely secondary to colitis. With the patient's elevated white count, recent hospitalization, and recently atraumatic use, this is most likely C. difficile colitis. While C. difficile PCR was pending, the patient was administered Flagyl 500 mg intravenously. See difficile toxin were still pending. The patient was reevaluated multiple times , she still feels weak and dehydrated, has difficulty getting up to a bedside commode and lives alone. After discussion with the patient was agreed she'll be 23 hour observation until C. difficile results are obtained and the patient is rehydrated. The patient would prefer to return home as opposed to a [facility] facility because she has animals at home. Patient has [employer], therefore , [facility] were paged for 23 hour observation. Sepsis Criteria SIRS Criteria (2 or more): Heart rate over 90, WBC > 58428, < 4000 or > 10% bands Criteria Outcome: Meets SIRS criteria Physician Communication Physician Communication [facility] were paged for admission. I discussed the patient with Dr. Mcintyre who agrees with admission. Diagnosis Primary Impression: Colitis Admitting Information Admitting Physician Requests: Admit Condition: Stable Holger Batres MD Dec 19, 2016 09:35
[2016-12-19 09:58] LABS: AUTOMATED NEUTROPHIL # 21.8 TH/MM3 (1.8-7.7); BASOPHIL # 0.8 TH/MM3 (0-0.2); BASOPHIL % 3.1 % (0.0-2.0); HEMATOCRIT 34.8 % (35.0-46.0); LYMPH % 4.7 % (9.0-44.0); LYMPHOCYTE # 1.2 TH/MM3 (1.0-4.8); MEAN CELL VOLUME 86.9 FL (80.0-100.0); MEAN CORPUSCULAR HEMOGLOBIN 29.1 PG (27.0-34.0); MEAN CORPUSCULAR HGB CONC 33.5 % (32.0-36.0); MONO % 5.3 % (0.0-8.0); NEUT % 86.9 % (16.0-70.0); PLATELET COUNT 177 TH/MM3 (150-450); RED CELL DISTRIBUTION WIDTH 14.6 % (11.6-17.2); WHITE BLOOD COUNT 25.1 TH/MM3 (4.0-11.0)
[2016-12-19 09:59] LABS: CHLORIDE 98 MEQ/L (98-107); POTASSIUM 3.3 MEQ/L (3.5-5.1); SODIUM (NA) 133 MEQ/L (136-145)
[2016-12-19 10:03] LABS: ANION GAP 9 MEQ/L (5-15); BICARBONATE 26.5 MEQ/L (21.0-32.0); BLOOD UREA NITROGEN 20 MG/DL (7-18)
[2016-12-19 10:06] LABS: ALT (GPT) 33 U/L (10-53); AST (GOT) 57 U/L (15-37); GLOMERULAR FILTRATION RATE 40 ML/MIN (>89)
[2016-12-19 10:09] LABS: ALKALINE PHOSPHATASE 67 U/L (45-117)
[2016-12-19 10:13] LABS: TOTAL BILIRUBIN ADULT 0.8 MG/DL (0.2-1.0)
[2016-12-19 10:19] LABS: HEMO FLAGS AUTO DIFF
[2016-12-19 10:54] LABS: PLATELET ESTIMATE SMEAR NORMAL (NORMAL); PLATELET MORPHOLOGY NORMAL (NORMAL); SCAN/DIFF AUTO DIFF CONFIRMED; TOXIC GRANULATION 1+ (NORMAL)
--- NOTE | 2016-12-19 11:30 | RADRPT ---
EXAM DATE/TIME: 12/19/2016 10:10 [facility] COMPARISON: No previous studies available for comparison. INDICATIONS : Diffuse intermittent abdominal pain with nausea, vomiting and diarrhea. ORAL CONTRAST: No oral contrast ingested. RADIATION DOSE: 11.81 CTDIvol (mGy) MEDICAL HISTORY : Cardiovascular disease. Hypertension. Chronic obstructive pulmonary disease. SURGICAL HISTORY : CABG Coronary artery stent.Appendectomy.Hysterectomy. Lap band. Bladder suspension. ENCOUNTER: Initial ACUITY: 3 weeks PAIN SCALE: 5/10 LOCATION: Bilateral abdomen TECHNIQUE: Volumetric scanning of the abdomen and pelvis was performed. Using automated exposure control and ad justment of the mA and/or kV according to patient size, radiation dose was kept as low as reasonably achievable to obtain optimal diagnostic quality images. DICOM format image data is available electro nically for review and comparison. FINDINGS: LOWER LUNGS: Small right pleural effusion measuring 12 mm with some adjacent compressive atelectasis. In the left costophrenic angle, there is a tiny left pleural effusion.. LIVER: Homogeneous density without lesion for noncontrast technique. There is no dilation of the biliary tr ee. No calcified gallstones. SPLEEN: Normal size without lesion. PANCREAS: Within normal limits. KIDNEYS: Normal in size and shape. There is no mass, stone, or hydronephrosis. ADRENAL GLANDS: Within normal limits. VASCULAR: Diffuse wall calcification in the aorta. There is no aortic aneurysm. BOWEL/MESENTERY: No dilated loops of small or large bowel. Lap band device in place. Several small diverticula in th e sigmoid colon without any definite evidence of diverticulitis. There is an abnormal appearance to the right colon and transverse colon some mild induration of the fat about the right colon and findin gs suggesting diffuse wall thickening in the right colon and transverse colon. ABDOMINAL WALL: Within normal limits. RETROPERITONEUM: There is no lymphadenopathy. BLADDER: No wall thickening or mass. REPRODUCTIVE: Within normal limits. INGUINAL: There is no lymphadenopathy or hernia. MUSCULOSKELETAL: Within normal limits for patient age. CONCLUSION: 1. Mild induration of the fat about the right colon and findings suggestive of diffuse wall thickenin g in the right colon and transverse colon. This is a nonspecific constellation of findings would vega se the possibility of an inflammatory or infectious process. 2. Multiple small sigmoid diverticula without radiographic evidence of diverticulitis. 3. Small bilateral pleural effusions. Giulherme Dumas MD on December 19, 2016 at 11:22 Board Certified Radiologist. This report was verified electronically.
[2016-12-19] MEDS ORDERED: metroNIDAZOLE 500 MG INJ 100 ML IV ONE (11:45)
[2016-12-19] MEDS ORDERED: ACETAMINOPHEN 325 MG TAB PO PRN (14:15)
[2016-12-19] MEDS ORDERED: MAGNESIUM HYDROXIDE SUSP 30 ML CUP PO PRN (14:15)
[2016-12-19] MEDS ORDERED: ZOLPIDEM TARTRATE 5 MG TAB PO PRN (14:15)
[2016-12-19] MEDS ORDERED: SODIUM CHLORIDE 0.9% FLUSH 10 ML FLUSH IV FLUSH PRN (14:15)
[2016-12-19] MEDS ORDERED: ONDANSETRON HCL 4 MG/2 ML VIAL IVP PRN (14:15)
[2016-12-19] MEDS ORDERED: NALOXONE HCL 0.4 MG/ML AMP IV PUSH PRN (14:15)
[2016-12-19] MEDS ORDERED: RESP: ALBUTEROL 2.5 MG/IPRATROPIUM 0.5 MG NEB (PRN) NEB (15:15)
[2016-12-19] MEDS ORDERED: TEMAZEPAM 15 MG CAP PO PRN (15:15)
--- NOTE | 2016-12-19 16:19 | HHI.HP ---
[facility] Service [facility] Primary Care Physician Unknown Admission Diagnosis colitis pain colitis rule out C. difficile, dehydration, decondition Diagnoses: (1) Sepsis Diagnosis: Principal (2) Diarrhea in adult patient Diagnosis: Principal (3) Leucocytosis Diagnosis: Principal (4) Acute renal failure superimposed on stage 2 chronic kidney disease Diagnosis: Principal (5) COPD (chronic obstructive pulmonary disease) Diagnosis: Secondary Chief Complaint: Nausea, diarrhea Travel History International Travel<30 Days: No Contact w/Intl Traveler <30 Da: No Traveled to Known Affected Are: No History of Present Illness Written by Danis Peña, acting as scribe for Dr. Werner on 12/19/16 at 16 :05. 71-year-old female with known history of hypertension, myocardial infarction, coronary artery disease, hyponatremia, unstable angina, chronic affective pulmonary disease, chronic tobacco use who presented to hospital because of nausea, diarrhea, weakness, unable to eat. Patient was recently admitted to the hospital on 12/06/16 and was evaluated and treated for non-ST elevated myocardial infarction. Patient had a complete workup done with apprise counselor and was discharged to senior care facility on 12/11/16. Patient states that she was prescribed antibiotics for her chronic affective pulmonary disease and she started having diarrhea on the day she was discharged. Patient did go to rehabilitation facility and continued to have diarrhea to include water consistency to soft stool. She states that it was brown in color and had very foul odor. Patient states that she was discharged home from the nursing facility still with significant diarrhea, she is not really ate or drank anything. She states that when she got home she had a piece of toast and a bolus soup on Sunday, she did not eat on Sunday or Sunday. She states that she is only been drinking like light water. Patient states that her diarrhea did not improve so she came to the emergency department for evaluation. Patient had workup done which does show sepsis, dehydration, acute renal failure, adult diarrhea illness. Is recommended by ER physician the patient be admitted for further evaluation and management. Patient denies any abdominal pain. She is had nausea but no vomiting. She has had increased weakness. Denies any hematochezia, melena. Review of Systems Constitutional: COMPLAINS OF: Change in appetite Gastrointestinal: COMPLAINS OF: Diarrhea, Nausea Except as stated in HPI: all other systems reviewed are Neg Past Family Social History Past Medical History CAD status post previous IN with prior CABG and cardiac stent implants 11 COPD with ongoing tobaccoism Hypertension Dyslipidemia Depression Past Surgical History CABG 5 vessels Cardiac stent implant 11 LAP-BAND surgery Hysterectomy Bladder suspension surgery Benign breast lumpectomy Reported Medications Reported Meds & Active Scripts Active Prednisone 20 Mg Tab 20 Mg PO DAILY@0800 Hm Loperamide HCl (Loperamide HCl) 2 Mg Cap 2 Mg PO UNSCH PRN Furosemide 20 Mg Tab 20 Mg PO BID@09,18 Restoril (Temazepam) 15 Mg Cap 15 Mg PO HS PRN Hydrocodone-Acetaminophen 5-325 mg Tab 1 Tab PO Q6H PRN Adult Aspirin EC Low Strength (Aspirin) 81 Mg Tabec 81 Mg PO DAILY Potassium Chloride ER (Potassium Chloride) 20 Meq Tab 20 Meq PO DAILY Reported Alprazolam 0.5 Mg Tab 0.5 Mg PO Q8H PRN Metoprolol Tartrate 75 Mg Tab 75 Mg PO BID Prozac (Fluoxetine HCl) 20 Mg Cap 20 Mg PO BID Combivent Respimat Inh (Ipratropium-Albuterol Inh) 20-100 Prison/Act Aero 1 Puff INH BID Ventolin Hfa 18 GM Inh (Albuterol Sulfate) 90 Mcg/Act Aer 2 Puff INH Q4-6H PRN Atorvastatin (Atorvastatin Calcium) 80 Mg Tab 80 Mg PO HS Amlodipine (Amlodipine Besylate) 5 Mg Tab 5 Mg PO BID Isosorbide Mononitrate ER (Isosorbide Mononitrate) 30 Mg Liza 30 Mg PO DAILY Clopidogrel (Clopidogrel Bisulfate) 75 Mg Tab 75 Mg PO DAILY Allergies: Coded Allergies: lisinopril (Unverified Allergy, Severe, Cough, 12/19/16) PERSISTENT COUGH losartan (Verified Allergy, Severe, Hives, 12/19/16) codeine (Unverified Allergy, Mild, NAUSEA, 12/19/16) PATIENT STATES SHE IS NOT ALLERGIC TO MEDICATION cephalexin (Unverified Allergy, Unknown, Nausea/Vomiting, 12/19/16) fluticasone (Unverified Allergy, Unknown, 12/19/16) THROAT SWELLING fluticasone furoate (Unverified Allergy, Unknown, 12/19/16) THROAT SWELLING salmeterol (Unverified Allergy, Unknown, 12/19/16) THROAT SWELLING azithromycin (Verified Adverse Reaction, Intermediate, DIARRHEA, 12/19/16) Family History reviewed and significant for Heart disease Social History Patient continues to smoke 1/2 pack of cigarettes since she was 15 y/o. denies any ETOH or illicit drugs Physical Exam Vital Signs Vital Signs Date Time Temp Pulse Resp B/P (MAP) Pulse Ox O2 Delivery O2 Flow Rate FiO2 12/19/16 15:33 99.8 98 20 154/77 (102) 94 Nasal Cannula 2.00 12/19/16 14:35 98 20 151/71 (97) 93 Nasal Cannula 2.00 12/19/16 13:39 97 20 157/76 (103) 93 Nasal Cannula 2.00 12/19/16 12:39 98 20 158/79 (105) 94 Nasal Cannula 2.00 12/19/16 11:39 86 20 149/76 (100) 97 Nasal Cannula 2.00 12/19/16 10:45 100.1 87 20 162/68 (99) 94 Nasal Cannula 2.00 12/19/16 10:07 20 12/19/16 09:25 20 92 Nasal Cannula 2.00 12/19/16 09:20 99.8 92 22 161/61 (94) 92 Physical Exam GENERAL: Well-developed, well-nourished, in no acute distress. alert and orientated HEENT: Head is normocephalic without any lesions or masses noted. Facial features are symmetric. Eyes: Pupils equal round reactive to light. Extraocular muscles are intact. Conjunctivae were clear. Oropharyngeal: Pharynx without any erythema edema. Tongue is midline without deviation. Buccal mucosa is moist without any masses or lesions NECK: Supple without any masses. Trachea midline no deviation. No JVD, no bruits are appreciated CARDIAC: Regular rhythm, regular rate. S1/S2 are heard. No murmurs gallops or rubs. LUNGS: Increased respirations, some wheezing. ABDOMEN: Soft, generalized abdominal tenderness. Nondistended. Bowel sounds heard in all 4 quadrants. No organomegaly or masses. Negative rebound, negative guarding EXTREMITIES: No edema, pulses are equal bilaterally. No cyanosis or clubbing NEUROLOGY: Mood and affect appear appropriate. Cranial nerves II through XII grossly intact. Muscle strength 5/5 in upper and lower extremities bilaterally. Deep tendon reflexes are 2+ in upper and lower extremities bilaterally. Laboratory Laboratory Tests Test 12/19/16 09:35 12/19/16 10:41 White Blood Count 25.1 Red Blood Count 4.00 Hemoglobin 11.6 Hematocrit 34.8 Mean Corpuscular Volume 86.9 Mean Corpuscular Hemoglobin 29.1 Mean Corpuscular Hemoglobin Concent 33.5 Red Cell Distribution Width 14.6 Platelet Count 177 Mean Platelet Volume 9.0 Neutrophils (%) (Auto) 86.9 Lymphocytes (%) (Auto) 4.7 Monocytes (%) (Auto) 5.3 Eosinophils (%) (Auto) 0.0 Basophils (%) (Auto) 3.1 Neutrophils # (Auto) 21.8 Lymphocytes # (Auto) 1.2 Monocytes # (Auto) 1.3 Eosinophils # (Auto) 0.0 Basophils # (Auto) 0.8 CBC Comment AUTO DIFF Differential Comment AUTO DIFF CONFIRMED Toxic Granulation 1+ Platelet Estimate NORMAL Platelet Morphology Comment NORMAL Blood Urea Nitrogen 20 Creatinine 1.30 Random Glucose 105 Total Protein 6.2 Albumin 3.0 Calcium Level 8.0 Alkaline Phosphatase 67 Aspartate Amino Transf (AST/SGOT) 57 Alanine Aminotransferase (ALT/SGPT) 33 Total Bilirubin 0.8 Sodium Level 133 Potassium Level 3.3 Chloride Level 98 Carbon Dioxide Level 26.5 Anion Gap 9 Estimat Glomerular Filtration Rate 40 Lactic Acid Level 1.5 Lipase 40 Date/Time Source Procedure Growth Status 12/19/16 10:41 Stool Stool Pending Received Result Diagram: 12/19/16 0935 12/19/16 0935 Imaging Last Impressions Abdomen/Pelvis CT 12/19/16 0000 Signed Impressions: Service Date/Time: Monday, December 19, 2016 10:10 - CONCLUSION: 1. Mild induration of the fat about the right colon and findings suggestive of diffuse wall thickening in the right colon and transverse colon. This is a nonspecific constellation of findings would raise the possibility of an inflammatory or infectious process. 2. Multiple small sigmoid diverticula without radiographic evidence of diverticulitis. 3. Small bilateral pleural effusions. Guilherme Dumas MD Septic Shock Reassessment Heart: Regular rate and rhythm Lungs: Clear Skin: Warm, [place] Peripheral Pulses: Bounding Right Radial Bounding Left Radial Capillary Refill: Brisk, <2 seconds Caprini VTE Risk Assessment Caprini VTE Risk Assessment: Mod/High Risk (score >= 2) Caprini Risk Assessment Model Point Value = 1 Point Value = 2 Point Value = 3 Point Value = 5 Age 41-60 Minor surgery BMI > 25 kg/m2 Swollen legs Varicose veins or History of unexplained or recurrent spontaneous Oral contraceptives or hormone replacement Sepsis (< 1 month) Serious lung disease, including pneumonia (< 1 month) Abnormal pulmonary function Acute myocardial infarction Congestive heart failure (< 1 month) History of inflammatory bowel disease Medical patient at bed rest Age 61-74 Arthroscopic surgery Major open surgery (> 45 min) Laparoscopic surgery (> 45 min) Malignancy Confined to bed (> 72 hours) Immobilizing plaster cast Central venous access Age >= 75 History of VTE Family history of VTE Factor V Leiden Prothrombin [id number] Lupus anticoagulant Anticardiolipin antibodies Elevated serum homocysteine Heparin-induced thrombocytopenia Other congenital or acquired thrombophilia Stroke (< 1 month) Elective arthroplasty Hip, pelvis, or leg fracture Acute spinal cord injury (< 1 month) Prophylaxis Regimen Total Risk Factor Score Risk Level Prophylaxis Regimen 0-1 Low Early ambulation 2 Moderate Order ONE of the following: *Sequential Compression Device (SCD) *Heparin 5000 units SQ BID 3-4 Higher Order ONE of the following medications: *Heparin 5000 units SQ TID *Enoxaparin/Lovenox 40 mg SQ daily (WT < 150 kg, CrCl > 30 mL/min) *Enoxaparin/Lovenox 30 mg SQ daily (WT < 150 kg, CrCl > 10-29 mL/min) *Enoxaparin/Lovenox 30 mg SQ BID (WT < 150 kg, CrCl > 30 mL/min) AND/OR *Sequential Compression Device (SCD) 5 or more Highest Order ONE of the following medications: *Heparin 5000 units SQ TID (Preferred with Epidurals) *Enoxaparin/Lovenox 40 mg SQ daily (WT < 150 kg, CrCl > 30 mL/min) *Enoxaparin/Lovenox 30 mg SQ daily (WT < 150 kg, CrCl > 10-29 mL/min) *Enoxaparin/Lovenox 30 mg SQ BID (WT < 150 kg, CrCl > 30 mL/min) AND *Sequential Compression Device (SCD) Assessment and Plan Assessment and Plan Sepsis Patient meets criteria with leukocytosis, tachycardia, diarrhea illness, CT scan showing possible colitis whether inflammatory versus infectious Patient was given Flagyl in emergency department Start Cipro, Flagyl, IV until cultures are available for appropriate antibiotic Awaiting C. difficile culture for appropriate treatment Due to patient's increased risk factors force C. difficile infection because of recent hospitalization, antibiotics, [place] [facility]. We'll start vancomycin by mouth every 6 hours per infectious disease protocol Obtain blood cultures Leukocytosis Likely secondary to combination of infection, sepsis, dehydration Continue IV fluids Monitor CBC Diarrhea illness Awaiting C. difficile culture Stool culture has been collected Await for cultures for appropriate antibiotic therapy Acute renal failure superimposed on chronic kidney disease stage II Continue IV fluids Monitor renal function Chronic obstructive pulmonary disease Patient does have increased shortness of breath with hypoxia Will need to obtain chest x-ray to rule out underlying infection or COPD exacerbation Continue duo nebs standing and as needed Start Solumedrol IV Pulmonology consult as needed. IS Encourage ambulation DVT prevention Sequential compression devices Discussed Condition With ER physician, nursing staff, patient Physician Certification 2 Midnight Certification Type: Admission for Inpatient Services Order for Inpatient Services The services are ordered in accordance with Medicare regulations or non- Medicare payer requirements, as applicable. In the case of services not specified as inpatient-only, they are appropriately provided as inpatient services in accordance with the 2-midnight benchmark. Estimated LOS (days): 4 days is the estimated time the patient will need to remain in the hospital, assuming treatment plan goals are met and no additional complications. Post-Hospital Plan: Not yet determined Notes: This note was transcribed by zion Peña. I, Dr. Florencio Werner personally performed the history, physical exam, and medical decision making; and confirmed the accuracy of the information in the transcribed note. Authenticated by Dr. Florencio Werner on 12/19/16 at 16:35. Danis Peña Dec 19, 2016 16:19 Florencio Werner DO Dec 19, 2016 16:35
[2016-12-19] MEDS ORDERED: guaiFENesin/DEXTROMETHORPHAN 200 MG/20 MG/10 ML CUP PO PRN (16:30)
[2016-12-19] MEDS ORDERED: CIPROFLOXACIN 400 MG PREMIX 200 ML IV SCH (17:00)
[2016-12-19 17:05] LABS: C. DIFF EPI 027 PRESUMPTIVE POSITIVE (NEGATIVE)
[2016-12-19] MEDS: methylPREDNISolone SOD SUCC 40 MG/1 ML VIAL IV PUSH SCH (17:15)
[2016-12-19] MEDS: ISOSORBIDE MONONITRATE 30 MG TAB PO SCH (17:15)
[2016-12-19] MEDS: VANCOMYCIN 500 MG VIAL (FOR ORAL USE ONLY) PO SCH ×2 (17:28→20:52)
--- NOTE | 2016-12-19 17:41 | RADRPT ---
EXAM DATE/TIME: 12/19/2016 17:00 [facility] COMPARISON: CT PULMONARY ANGIOGRAM, December 07, 2016, 11:16. CHEST SINGLE AP, December 07, 2016, 3:39. CHEST SIN GLE AP, December 08, 2016, 9:40. INDICATIONS : Short of breath. MEDICAL HISTORY : Cardiovascular disease. Hypertension. Chronic obstructive pulmonary disease. SURGICAL HISTORY : CABG Coronary artery stent.Appendectomy.Hysterectomy. Lap band. Bladder suspension. ENCOUNTER: Initial ACUITY: 1 day PAIN SCORE: 0/10 LOCATION: Bilateral chest FINDINGS: There is mild diffuse prominence of the interstitial markings in the lateral right midlung. No focal areas of consolidation seen. There is some blunting of the costophrenic angle on the right side sug gesting residual right pleural effusion. The heart is normal in size. Sternal wire sutures. CONCLUSION: Mild blunting of the costophrenic angle suggests small right pleural effusion. Mild interstitial pro minence in lateral right lung without focal areas of consolidation or infiltrate. Guilherme Dumas MD on December 19, 2016 at 17:35 Board Certified Radiologist. This report was verified electronically.
[2016-12-19] MEDS ORDERED: RESP: ALBUTEROL 2.5 MG/IPRATROPIUM 0.5 MG NEB (SCH) NEB (20:00)
[2016-12-19] MEDS: RESP: ALBUTEROL 2.5 MG/IPRATROPIUM 0.5 MG NEB (SCH) NEB (20:14)
[2016-12-19] MEDS: NS + KCL 20 MEQ INJ 1,000 ML IV SCH (20:49)
[2016-12-19] MEDS: metroNIDAZOLE 500 MG INJ 100 ML IV SCH (20:50)
[2016-12-19] MEDS: SODIUM CHLORIDE 0.9% FLUSH 10 ML FLUSH IV FLUSH SCH (20:52)
[2016-12-19] MEDS: FLUoxetine HCL 20 MG CAP PO SCH (20:52)
[2016-12-19] MEDS: amLODIPine BESYLATE 5 MG TAB PO SCH (20:52)
[2016-12-19] MEDS: ATORVASTATIN 40 MG TAB PO SCH (20:58)
[2016-12-19] MEDS ORDERED: METOPROLOL TARTRATE 25 MG TAB PO SCH (21:00)
[2016-12-20] VITALS (9 sets, daily range): BP systolic 125–148; BP diastolic 58–64; PULSE 81–91; RESP 18–20; TEMP 96.1–98.3; O2SAT 92–96
[2016-12-20] MEDS: methylPREDNISolone SOD SUCC 40 MG/1 ML VIAL IV PUSH SCH ×3 (00:13→17:14)
[2016-12-20] MEDS: metroNIDAZOLE 500 MG INJ 100 ML IV SCH (03:40)
[2016-12-20 06:38] LABS: BASOPHIL % 0.1 % (0.0-2.0); EOSINOPHIL % 0.1 % (0.0-4.0); HEMATOCRIT 34.8 % (35.0-46.0); LYMPHOCYTE # 0.5 TH/MM3 (1.0-4.8); MEAN CELL VOLUME 87.1 FL (80.0-100.0); MEAN CORPUSCULAR HEMOGLOBIN 28.7 PG (27.0-34.0); MONO % 1.5 % (0.0-8.0); NEUT % 94.3 % (16.0-70.0); PLATELET COUNT 147 TH/MM3 (150-450); RED BLOOD COUNT 3.99 MIL/MM3 (4.00-5.30)
[2016-12-20] MEDS: ISOSORBIDE MONONITRATE 30 MG TAB PO SCH (06:43)
[2016-12-20 06:47] LABS: CHLORIDE 104 MEQ/L (98-107); SODIUM (NA) 137 MEQ/L (136-145)
[2016-12-20 06:51] LABS: ANION GAP 8 MEQ/L (5-15); BICARBONATE 24.6 MEQ/L (21.0-32.0); BLOOD UREA NITROGEN 21 MG/DL (7-18); MAGNESIUM 1.8 MG/DL (1.5-2.5)
[2016-12-20 06:54] LABS: ALT (GPT) 31 U/L (10-53); AST (GOT) 84 U/L (15-37); GLOMERULAR FILTRATION RATE 49 ML/MIN (>89)
[2016-12-20 06:56] LABS: ALKALINE PHOSPHATASE 61 U/L (45-117); TOTAL BILIRUBIN ADULT 0.9 MG/DL (0.2-1.0)
[2016-12-20 07:02] LABS: HEMO FLAGS DIFF FINAL; WHITE BLOOD COUNT 12.7 TH/MM3 (4.0-11.0)
[2016-12-20] MEDS: RESP: ALBUTEROL 2.5 MG/IPRATROPIUM 0.5 MG NEB (SCH) NEB ×3 (07:39→22:01)
--- NOTE | 2016-12-20 08:41 | HHI.PR ---
Subjective Remarks The patient was very concerned about her diagnosis of C. difficile. She had questions which were answered. She said her breathing was better. She said she has no abdominal pain. She was wondering about getting some pain medication. Discussed with nursing. Objective Vitals Vital Signs Date Time Temp Pulse Resp B/P (MAP) Pulse Ox O2 Delivery O2 Flow Rate FiO2 12/20/16 07:43 96 Nasal Cannula 2.00 12/20/16 04:00 96.7 82 18 137/63 (87) 95 12/20/16 00:00 98.3 91 18 135/63 (87) 92 12/19/16 21:00 98.0 89 20 153/69 (97) 92 12/19/16 20:14 93 Nasal Cannula 2.00 12/19/16 20:00 Nasal Cannula 2.00 12/19/16 16:30 95 Nasal Cannula 2.00 12/19/16 16:00 98.1 79 20 141/71 (94) 94 12/19/16 15:33 99.8 98 20 154/77 (102) 94 Nasal Cannula 2.00 12/19/16 14:35 98 20 151/71 (97) 93 Nasal Cannula 2.00 12/19/16 13:39 97 20 157/76 (103) 93 Nasal Cannula 2.00 12/19/16 12:39 98 20 158/79 (105) 94 Nasal Cannula 2.00 12/19/16 11:39 86 20 149/76 (100) 97 Nasal Cannula 2.00 12/19/16 10:45 100.1 87 20 162/68 (99) 94 Nasal Cannula 2.00 12/19/16 10:07 20 12/19/16 09:25 20 92 Nasal Cannula 2.00 12/19/16 09:20 99.8 92 22 161/61 (94) 92 I/O 12/19/16 12/19/16 12/19/16 12/20/16 12/20/16 12/20/16 07:00 15:00 23:00 07:00 15:00 23:00 Intake Total 1100 ml 200 ml 1080 ml Output Total 4500 ml Balance 1100 ml 200 ml -3420 ml Intake Oral 240 ml IV Total 1100 ml 200 ml 840 ml Output Stool Total 4500 ml # Voids 2 Result Diagram: 12/20/16 0510 12/20/16 0510 Imaging Last Impressions Chest X-Ray 12/19/16 0000 Signed Impressions: Service Date/Time: Monday, December 19, 2016 17:00 - CONCLUSION: Mild blunting of the costophrenic angle suggests small right pleural effusion. Mild interstitial prominence in lateral right lung without focal areas of consolidation or infiltrate. Guilherme Dumas MD Abdomen/Pelvis CT 12/19/16 0000 Signed Impressions: Service Date/Time: Monday, December 19, 2016 10:10 - CONCLUSION: 1. Mild induration of the fat about the right colon and findings suggestive of diffuse wall thickening in the right colon and transverse colon. This is a nonspecific constellation of findings would raise the possibility of an inflammatory or infectious process. 2. Multiple small sigmoid diverticula without radiographic evidence of diverticulitis. 3. Small bilateral pleural effusions. Guilherme Dumas MD Objective Remarks GENERAL: Well-developed, well-nourished, NAD. HEENT: Head is normocephalic without any lesions or masses noted. Facial features are symmetric. Eyes: Pupils equal round reactive to light. Extraocular muscles are intact. Conjunctivae were clear. Oropharyngeal: Pharynx without any erythema edema. Tongue is midline without deviation. Buccal mucosa is moist without any masses or lesions NECK: Supple without any masses. Trachea midline no deviation. No JVD, no bruits are appreciated CARDIAC: Regular rhythm, regular rate. S1/S2 are heard. No murmurs gallops or rubs. LUNGS: CTAB. Decreased air movement. ABDOMEN: Soft, generalized abdominal tenderness. Nondistended. Bowel sounds heard in all 4 quadrants. No organomegaly or masses. Negative rebound, negative guarding EXTREMITIES: No edema, pulses are equal bilaterally. No cyanosis or clubbing NEUROLOGY: Cranial nerves II through XII grossly intact. Muscle strength 5/5 in upper and lower extremities bilaterally. Deep tendon reflexes are 2+ in upper and lower extremities bilaterally. PSYCH: Teary-eyed. Medications and IVs Current Medications Medications (Trade) Dose Ordered Sig/Samy Route Start Time Stop Time Status Last Admin (VANCOMYCIN for oral use only) 125 mg QID PO 12/19/16 18:00 01/02/17 17:59 12/19/16 20:52 (NS Flush) 2 ml UNSCH PRN IV FLUSH 12/19/16 14:15 (NS Flush) 2 ml BID IV FLUSH 12/19/16 21:00 (Tylenol) 650 mg Q4H PRN PO 12/19/16 14:15 (Zofran Inj) 4 mg Q6H PRN IVP 12/19/16 14:15 12/19/16 17:54 (Narcan Inj) 0.4 mg UNSCH PRN IV PUSH 12/19/16 14:15 (Milk Of Magnesia Liq) 30 ml Q12H PRN PO 12/19/16 14:15 (Duoneb Neb) 1 ampule Q2HR NEB PRN NEB 12/19/16 15:15 (Xanax) 0.5 mg Q8H PRN PO 12/19/16 15:15 (Norvasc) 5 mg BID PO 12/19/16 21:00 12/19/16 20:52 (Ecotrin Ec) 81 mg DAILY PO 12/20/16 09:00 (Lipitor) 80 mg HS PO 12/19/16 21:00 12/19/16 20:58 (Plavix) 75 mg DAILY PO 12/20/16 09:00 (PROzac) 20 mg BID PO 12/19/16 21:00 12/19/16 20:52 (Imdur) 30 mg DAILY@0700 PO 12/19/16 15:15 12/20/16 06:43 (Restoril) 15 mg HS PRN PO 12/19/16 15:15 (Robitussin Dm 200-20 Mg/10 ml Liq) 10 ml Q6H PRN PO 12/19/16 16:30 Metronidazole 100 ml @ 100 mls/hr Q8H IV 12/19/16 20:00 12/20/16 03:40 (Duoneb Neb) 1 ampule Q6HR WHILE AWAKE NEB NEB 12/19/16 16:30 12/20/16 07:39 (SoluMEDROL INJ) 40 mg Q8H IV PUSH 12/19/16 17:00 12/20/16 00:13 Potassium Chloride/Sodium Chloride 1,000 ml @ 100 mls/hr Q10H IV 12/19/16 20:00 12/19/16 20:49 A/P Problem List: (1) Sepsis ICD Code: A41.9 - Sepsis, unspecified organism (2) Diarrhea in adult patient ICD Code: R19.7 - Diarrhea, unspecified (3) Leucocytosis ICD Code: D72.829 - Elevated white blood cell count, unspecified (4) Acute renal failure superimposed on stage 2 chronic kidney disease ICD Code: N17.9 - Acute kidney failure, unspecified; N18.2 - Chronic kidney disease, stage 2 (mild) (5) COPD (chronic obstructive pulmonary disease) ICD Code: J44.9 - Chronic obstructive pulmonary disease Status: Chronic Assessment and Plan Sepsis/ C diff Patient meets criteria with leukocytosis, tachycardia, diarrhea illness, CT scan showing possible colitis whether inflammatory versus infectious. Patient was given Flagyl in emergency department. C diff positive. Antibiotics changed to PO vancomycin. - continue PO vancomycin. - trend CBC. - pain control. Acute renal failure Superimposed on chronic kidney disease stage II. Improved. - Continue IV fluids. - Monitor renal function. Chronic obstructive pulmonary disease Patient does have increased shortness of breath with hypoxia. CXR with small right effusion. - Continue duo nebs standing and as needed. - Start Solumedrol IV. - IS. - Encourage ambulation. DVT prevention: Sequential compression devices Discharge Planning Awaiting improvement Florencio Werner DO Dec 20, 2016 08:41
[2016-12-20] MEDS: SODIUM CHLORIDE 0.9% FLUSH 10 ML FLUSH IV FLUSH SCH ×2 (08:43→21:09)
[2016-12-20] MEDS: ASPIRIN EC 81 MG TABEC PO SCH (08:44)
[2016-12-20] MEDS: VANCOMYCIN 500 MG VIAL (FOR ORAL USE ONLY) PO SCH ×4 (08:44→21:08)
[2016-12-20] MEDS: FLUoxetine HCL 20 MG CAP PO SCH ×2 (08:44→21:08)
[2016-12-20] MEDS: amLODIPine BESYLATE 5 MG TAB PO SCH ×2 (08:44→21:07)
[2016-12-20] MEDS: CLOPIDOGREL 75 MG TAB PO SCH (08:44)
[2016-12-20] MEDS: NS + KCL 20 MEQ INJ 1,000 ML IV SCH ×2 (08:45→17:13)
[2016-12-20] MEDS: ALPRAZolam 0.5 MG TAB PO PRN ×2 (08:55→21:18)
[2016-12-20] MEDS ORDERED: MORPHINE SULFATE 4 MG/ML INJ IV PUSH PRN (09:00)
[2016-12-20] MEDS ORDERED: predniSONE 20 MG TAB PO SCH (09:00)
[2016-12-20] MEDS: ACETAMINOPHEN/HYDROcodone 325 MG/5 MG TAB PO PRN (12:22)
[2016-12-20 13:44] LABS: BLOOD, URINE SMALL (NEG); GLUCOSE,URINE NEG (NEG); KETONE, URINE NEG (NEG); NITRITE,URINE NEG (NEG)
[2016-12-20 14:00] LABS: METHOD OF COLLECTION CLEAN CATCH; URINE COLOR YELLOW (YELLW/STRAW)
[2016-12-20 14:01] LABS: BACTERIA, URINE OCC /hpf; COMMENT (UR) CULT NOT INDICATED; CULTURE IF INDICATED CULT NOT INDICATED; SQUAMOUS EPITHELIAL CELL URINE > 8 /hpf (0-5)
[2016-12-20] MEDS: ATORVASTATIN 40 MG TAB PO SCH (21:08)
[2016-12-21] VITALS (8 sets, daily range): BP systolic 139–161; BP diastolic 64–85; PULSE 94–146; RESP 14–26; TEMP 96.3–97.6; O2SAT 92–97
[2016-12-21] MEDS: methylPREDNISolone SOD SUCC 40 MG/1 ML VIAL IV PUSH SCH ×3 (01:15→21:08)
[2016-12-21] MEDS: NS + KCL 20 MEQ INJ 1,000 ML IV SCH ×2 (01:19→11:59)
[2016-12-21] MEDS: ISOSORBIDE MONONITRATE 30 MG TAB PO SCH (05:42)
[2016-12-21] MEDS: RESP: ALBUTEROL 2.5 MG/IPRATROPIUM 0.5 MG NEB (SCH) NEB ×3 (07:55→20:41)
[2016-12-21 08:11] LABS: HEMATOCRIT 33.5 % (35.0-46.0); MEAN CELL VOLUME 87.1 FL (80.0-100.0); MEAN CORPUSCULAR HEMOGLOBIN 28.4 PG (27.0-34.0); MEAN CORPUSCULAR HGB CONC 32.6 % (32.0-36.0); PLATELET COUNT 186 TH/MM3 (150-450); RED BLOOD COUNT 3.85 MIL/MM3 (4.00-5.30); RED CELL DISTRIBUTION WIDTH 14.6 % (11.6-17.2); REVIEW FLAG FINAL; WHITE BLOOD COUNT 12.2 TH/MM3 (4.0-11.0)
[2016-12-21 08:18] LABS: POTASSIUM 4.3 MEQ/L (3.5-5.1)
[2016-12-21 08:21] LABS: BICARBONATE 22.5 MEQ/L (21.0-32.0); MAGNESIUM 1.9 MG/DL (1.5-2.5)
[2016-12-21] MEDS: amLODIPine BESYLATE 5 MG TAB PO SCH ×2 (08:24→21:09)
[2016-12-21] MEDS: ALPRAZolam 0.5 MG TAB PO PRN ×2 (08:24→23:06)
[2016-12-21] MEDS: VANCOMYCIN 500 MG VIAL (FOR ORAL USE ONLY) PO SCH ×4 (08:24→21:09)
[2016-12-21] MEDS: ASPIRIN EC 81 MG TABEC PO SCH (08:25)
[2016-12-21] MEDS: FLUoxetine HCL 20 MG CAP PO SCH ×2 (08:25→21:09)
[2016-12-21] MEDS: SODIUM CHLORIDE 0.9% FLUSH 10 ML FLUSH IV FLUSH SCH ×2 (08:25→21:08)
[2016-12-21] MEDS: CLOPIDOGREL 75 MG TAB PO SCH (08:25)
[2016-12-21] MEDS: ALBUTEROL SULFATE 90 MCG/ACT HFA 8 GM INHALER INH PRN ×2 (11:59→17:54)
[2016-12-21] MEDS: ACETAMINOPHEN/HYDROcodone 325 MG/5 MG TAB PO PRN (12:04)
--- NOTE | 2016-12-21 12:44 | HHI.PR ---
Subjective Remarks The patient said that she has some shortness of breath earlier but that improved when she went back up on the oxygen level. She said she only had one bowel movement today. Objective Vitals Vital Signs Date Time Temp Pulse Resp B/P (MAP) Pulse Ox O2 Delivery O2 Flow Rate FiO2 12/21/16 08:00 97.6 105 26 161/85 (110) 92 12/21/16 07:56 92 Nasal Cannula 2.00 12/21/16 06:20 20 12/21/16 00:00 97.2 94 18 139/64 (89) 95 12/20/16 22:05 94 Nasal Cannula 2.00 12/20/16 21:25 92 Nasal Cannula 1.00 12/20/16 20:00 Nasal Cannula 1.00 12/20/16 20:00 96.6 86 18 135/64 (87) 92 12/20/16 16:00 96.1 88 18 125/58 (80) 96 12/20/16 16:00 96 2.00 I/O 12/20/16 12/20/16 12/20/16 12/21/16 12/21/16 12/21/16 07:00 15:00 23:00 07:00 15:00 23:00 Intake Total 1080 ml 1200 ml 1488 ml 658 ml Output Total 4500 ml 300 ml Balance -3420 ml -300 ml 1200 ml 1488 ml 658 ml Intake Oral 240 ml 1200 ml 240 ml IV Total 840 ml 1248 ml 658 ml Output Urine Total 300 ml Stool Total 4500 ml # Voids 2 1 1 # Bowel Movements 0 Result Diagram: 12/21/16 0800 12/21/16 08 Imaging Last Impressions Chest X-Ray 12/19/16 0000 Signed Impressions: Service Date/Time: Monday, December 19, 2016 17:00 - CONCLUSION: Mild blunting of the costophrenic angle suggests small right pleural effusion. Mild interstitial prominence in lateral right lung without focal areas of consolidation or infiltrate. Guilherme Dumas MD Abdomen/Pelvis CT 12/19/16 0000 Signed Impressions: Service Date/Time: Monday, December 19, 2016 10:10 - CONCLUSION: 1. Mild induration of the fat about the right colon and findings suggestive of diffuse wall thickening in the right colon and transverse colon. This is a nonspecific constellation of findings would raise the possibility of an inflammatory or infectious process. 2. Multiple small sigmoid diverticula without radiographic evidence of diverticulitis. 3. Small bilateral pleural effusions. Guilherme Dumas MD Objective Remarks GENERAL: Well-developed, well-nourished, NAD. HEENT: Head is normocephalic without any lesions or masses noted. Facial features are symmetric. Eyes: Pupils equal round reactive to light. Extraocular muscles are intact. Conjunctivae were clear. Oropharyngeal: Pharynx without any erythema edema. Tongue is midline without deviation. Buccal mucosa is moist without any masses or lesions NECK: Supple without any masses. Trachea midline no deviation. No JVD, no bruits are appreciated CARDIAC: Regular rhythm, regular rate. S1/S2 are heard. No murmurs gallops or rubs. LUNGS: Decreased air movement. Mild crackles on the right. ABDOMEN: Soft, generalized abdominal tenderness. Nondistended. Bowel sounds heard in all 4 quadrants. No organomegaly or masses. Negative rebound, negative guarding. EXTREMITIES: No edema, pulses are equal bilaterally. No cyanosis or clubbing. NEUROLOGY: Cranial nerves II through XII grossly intact. Muscle strength 5/5 in upper and lower extremities bilaterally. Deep tendon reflexes are 2+ in upper and lower extremities bilaterally. PSYCH: Mood and affect appropriate. Medications and IVs Current Medications Medications (Trade) Dose Ordered Sig/Samy Route Start Time Stop Time Status Last Admin (VANCOMYCIN for oral use only) 125 mg QID PO 12/19/16 18:00 01/02/17 17:59 12/21/16 12:04 (NS Flush) 2 ml UNSCH PRN IV FLUSH 12/19/16 14:15 (NS Flush) 2 ml BID IV FLUSH 12/19/16 21:00 12/21/16 08:25 (Tylenol) 650 mg Q4H PRN PO 12/19/16 14:15 (Zofran Inj) 4 mg Q6H PRN IVP 12/19/16 14:15 12/19/16 17:54 (Narcan Inj) 0.4 mg UNSCH PRN IV PUSH 12/19/16 14:15 (Milk Of Magnesia Liq) 30 ml Q12H PRN PO 12/19/16 14:15 (Xanax) 0.5 mg Q8H PRN PO 12/19/16 15:15 12/21/16 08:24 (Norvasc) 5 mg BID PO 12/19/16 21:00 12/21/16 08:24 (Ecotrin Ec) 81 mg DAILY PO 12/20/16 09:00 12/21/16 08:25 (Lipitor) 80 mg HS PO 12/19/16 21:00 12/20/16 21:08 (Plavix) 75 mg DAILY PO 12/20/16 09:00 12/21/16 08:25 (PROzac) 20 mg BID PO 12/19/16 21:00 12/21/16 08:25 (Imdur) 30 mg DAILY@0700 PO 12/19/16 15:15 12/21/16 05:42 (Restoril) 15 mg HS PRN PO 12/19/16 15:15 (Robitussin Dm 200-20 Mg/10 ml Liq) 10 ml Q6H PRN PO 12/19/16 16:30 (Duoneb Neb) 1 ampule Q6HR WHILE AWAKE NEB NEB 12/19/16 16:30 12/21/16 07:55 (SoluMEDROL INJ) 40 mg Q8H IV PUSH 12/19/16 17:00 12/21/16 08:24 Potassium Chloride/Sodium Chloride 1,000 ml @ 100 mls/hr Q10H IV 12/19/16 20:00 12/21/16 11:59 ([place] 5-325 Mg) 1 tab Q4H PRN PO 12/20/16 08:45 12/21/16 12:04 ([place] 10-325 Mg) 1 tab Q4H PRN PO 12/20/16 08:45 (Morphine Inj) 4 mg Q4H PRN IV PUSH 12/20/16 09:00 (Proair Hfa Inh) 2 puff Q4H PRN INH 12/21/16 11:15 12/21/16 11:59 A/P Problem List: (1) Sepsis ICD Code: A41.9 - Sepsis, unspecified organism (2) Diarrhea in adult patient ICD Code: R19.7 - Diarrhea, unspecified (3) Leucocytosis ICD Code: D72.829 - Elevated white blood cell count, unspecified (4) Acute renal failure superimposed on stage 2 chronic kidney disease ICD Code: N17.9 - Acute kidney failure, unspecified; N18.2 - Chronic kidney disease, stage 2 (mild) (5) COPD (chronic obstructive pulmonary disease) ICD Code: J44.9 - Chronic obstructive pulmonary disease Status: Chronic Assessment and Plan Sepsis/ C diff Patient meets criteria with leukocytosis, tachycardia, diarrhea illness, CT scan showing possible colitis whether inflammatory versus infectious. Patient was given Flagyl in emergency department. C diff positive. Antibiotics changed to PO vancomycin. Improving. - continue PO vancomycin. - trend CBC. - pain control. - d/c IVFs. Acute renal failure Superimposed on chronic kidney disease stage II. Improved. - d/c IV fluids and encourage PO intake. - Monitor renal function as needed. Chronic obstructive pulmonary disease Patient does have increased shortness of breath with hypoxia. CXR with small right effusion. - Continue duo nebs standing and as needed albuterol. - wean Solumedrol IV. - IS. - Encourage ambulation. - repeat CXR. - walk test prior to d/c. DVT prevention: Sequential compression devices Discharge Planning Awaiting improvement. Anticipate d/c with [facility] in 1-2 days Florencio Werner DO Dec 21, 2016 12:44
--- NOTE | 2016-12-21 14:31 | RADRPT ---
EXAM DATE/TIME: 12/21/2016 13:55 [place] COMPARISON: CT ABDOMEN & PELVIS W/O CONTRAST, December 19, 2016, 10:10. CHEST SINGLE AP, December 19, 2016, 17:00. INDICATIONS : Short of breath. COPD. MEDICAL HISTORY : Myocardial infarction. Chronic obstructive pulmonary disease. SURGICAL HISTORY : Coronary artery stent. CABG. Appendectomy. ENCOUNTER: Subsequent ACUITY: 2 days PAIN SCORE: 0/10 LOCATION: chest FINDINGS: Ill-defined patchy infiltrates are present in the left lower lung causing loss of visualization of po rtions of the lateral left hemidiaphragm. There is also meniscal interface in the costophrenic angle suggesting a small left pleural effusion. Right lung is clear. Heart is normal size. Evidence of prior median sternotomy. Lap band tubing in the upper abdomen. CONCLUSION: Patchy left lower lung infiltrates and pleural effusion. Guilherme Dumas MD on December 21, 2016 at 14:22 Board Certified Radiologist. This report was verified electronically.
[2016-12-21] MEDS ORDERED: cloNIDine HCL 0.1 MG TAB PO PRN (16:30)
[2016-12-21] MEDS: ATORVASTATIN 40 MG TAB PO SCH (21:08)
[2016-12-22] VITALS (8 sets, daily range): BP systolic 111–169; BP diastolic 50–84; PULSE 48–137; RESP 14–26; TEMP 95.8–97; O2SAT 93–100
[2016-12-22] MEDS: ALBUTEROL SULFATE 90 MCG/ACT HFA 8 GM INHALER INH PRN (03:16)
[2016-12-22] MEDS: RESP: ALBUTEROL 2.5 MG/IPRATROPIUM 0.5 MG NEB (PRN) NEB (06:30)
[2016-12-22] MEDS: ISOSORBIDE MONONITRATE 30 MG TAB PO SCH (06:38)
[2016-12-22 07:14] LABS: AUTOMATED NEUTROPHIL # 11.9 TH/MM3 (1.8-7.7); BASOPHIL % 0.2 % (0.0-2.0); EOSINOPHIL % 0.1 % (0.0-4.0); HEMATOCRIT 32.5 % (35.0-46.0); LYMPH % 4.1 % (9.0-44.0); LYMPHOCYTE # 0.5 TH/MM3 (1.0-4.8); MEAN CELL VOLUME 88.7 FL (80.0-100.0); MEAN CORPUSCULAR HEMOGLOBIN 29.1 PG (27.0-34.0); MEAN CORPUSCULAR HGB CONC 32.8 % (32.0-36.0); MONO % 1.5 % (0.0-8.0); NEUT % 94.1 % (16.0-70.0); PLATELET COUNT 182 TH/MM3 (150-450); RED BLOOD COUNT 3.67 MIL/MM3 (4.00-5.30); RED CELL DISTRIBUTION WIDTH 14.9 % (11.6-17.2); WHITE BLOOD COUNT 12.6 TH/MM3 (4.0-11.0)
[2016-12-22 07:15] LABS: HEMO FLAGS DIFF FINAL
[2016-12-22] MEDS: RESP: ALBUTEROL 2.5 MG/IPRATROPIUM 0.5 MG NEB (SCH) NEB ×3 (08:40→21:01)
[2016-12-22] MEDS: ALPRAZolam 0.5 MG TAB PO PRN ×2 (10:01→17:34)
[2016-12-22] MEDS: ACETAMINOPHEN/HYDROcodone 325 MG/5 MG TAB PO PRN (10:01)
[2016-12-22] MEDS: VANCOMYCIN 500 MG VIAL (FOR ORAL USE ONLY) PO SCH ×4 (11:04→23:12)
[2016-12-22] MEDS: methylPREDNISolone SOD SUCC 40 MG/1 ML VIAL IV PUSH SCH ×2 (11:04→21:09)
[2016-12-22] MEDS: SODIUM CHLORIDE 0.9% FLUSH 10 ML FLUSH IV FLUSH SCH ×2 (11:05→21:08)
[2016-12-22] MEDS: CLOPIDOGREL 75 MG TAB PO SCH (11:05)
[2016-12-22] MEDS: ASPIRIN EC 81 MG TABEC PO SCH (11:05)
[2016-12-22] MEDS: amLODIPine BESYLATE 5 MG TAB PO SCH ×2 (11:05→21:10)
[2016-12-22] MEDS: FLUoxetine HCL 20 MG CAP PO SCH ×2 (11:06→21:09)
[2016-12-22] MEDS ORDERED: FUROSEMIDE 20 MG TAB PO SCH (11:45)
--- NOTE | 2016-12-22 13:08 | HHI.PR ---
Subjective Remarks The patient was concerned about her shortness of breath. She said that when she went to the bathroom she had a hard time with minimal ambulation. She would like to see a lung doctor. She said that her diarrhea has almost gone away. I talked with her sister, who is concerned about the patient's clinical status. Discussed with nursing. Objective Vitals Vital Signs Date Time Temp Pulse Resp B/P (MAP) Pulse Ox O2 Delivery O2 Flow Rate FiO2 12/22/16 11:06 20 12/22/16 08:47 97 Nasal Cannula 2.00 12/22/16 08:00 96.1 119 26 169/84 (112) 94 12/22/16 04:00 96.9 104 24 157/68 (97) 94 12/22/16 00:00 97.0 97 24 157/83 (107) 94 12/21/16 20:40 97 Nasal Cannula 2.00 12/21/16 20:00 96.4 103 24 151/72 (98) 97 12/21/16 19:00 97 Nasal Cannula 2.00 12/21/16 16:00 96.3 100 16 154/76 (102) 95 I/O 12/21/16 12/21/16 12/21/16 12/22/16 12/22/16 12/22/16 07:00 15:00 23:00 07:00 15:00 23:00 Intake Total 1488 ml 658 ml 477 ml 300 ml Balance 1488 ml 658 ml 477 ml 300 ml Intake Oral 240 ml 477 ml 300 ml IV Total 1248 ml 658 ml # Voids 1 1 1 4 # Bowel Movements 1 1 Result Diagram: 12/22/16 0603 12/21/16 0800 Imaging Last Impressions Chest X-Ray 12/21/16 0000 Signed Impressions: Service Date/Time: November 13:55 - CONCLUSION: Patchy left lower lung infiltrates and pleural effusion. Guilherme Dumas MD Abdomen/Pelvis CT 12/19/16 0000 Signed Impressions: Service Date/Time: Monday, December 19, 2016 10:10 - CONCLUSION: 1. Mild induration of the fat about the right colon and findings suggestive of diffuse wall thickening in the right colon and transverse colon. This is a nonspecific constellation of findings would raise the possibility of an inflammatory or infectious process. 2. Multiple small sigmoid diverticula without radiographic evidence of diverticulitis. 3. Small bilateral pleural effusions. Guilherme Dumas MD Objective Remarks GENERAL: Well-developed, well-nourished, NAD. HEENT: Head is normocephalic without any lesions or masses noted. Facial features are symmetric. Eyes: Pupils equal round reactive to light. Extraocular muscles are intact. Conjunctivae were clear. Oropharyngeal: Pharynx without any erythema edema. Tongue is midline without deviation. Buccal mucosa is moist without any masses or lesions NECK: Supple without any masses. Trachea midline no deviation. No JVD, no bruits are appreciated CARDIAC: Regular rhythm, regular rate. S1/S2 are heard. No murmurs gallops or rubs. LUNGS: Decreased air movement. Mild crackles on the right. ABDOMEN: Soft, generalized abdominal tenderness. Nondistended. Bowel sounds heard in all 4 quadrants. No organomegaly or masses. Negative rebound, negative guarding. EXTREMITIES: No edema, pulses are equal bilaterally. No cyanosis or clubbing. NEUROLOGY: Cranial nerves II through XII grossly intact. Muscle strength 5/5 in upper and lower extremities bilaterally. Deep tendon reflexes are 2+ in upper and lower extremities bilaterally. PSYCH: Anxious. Medications and IVs Current Medications Medications (Trade) Dose Ordered Sig/Samy Route Start Time Stop Time Status Last Admin (VANCOMYCIN for oral use only) 125 mg QID PO 12/19/16 18:00 01/02/17 17:59 12/22/16 11:04 (NS Flush) 2 ml UNSCH PRN IV FLUSH 12/19/16 14:15 (NS Flush) 2 ml BID IV FLUSH 12/19/16 21:00 12/22/16 11:05 (Tylenol) 650 mg Q4H PRN PO 12/19/16 14:15 (Zofran Inj) 4 mg Q6H PRN IVP 12/19/16 14:15 12/19/16 17:54 (Narcan Inj) 0.4 mg UNSCH PRN IV PUSH 12/19/16 14:15 (Milk Of Magnesia Liq) 30 ml Q12H PRN PO 12/19/16 14:15 (Xanax) 0.5 mg Q8H PRN PO 12/19/16 15:15 12/22/16 10:01 (Norvasc) 5 mg BID PO 12/19/16 21:00 12/22/16 11:05 (Ecotrin Ec) 81 mg DAILY PO 12/20/16 09:00 12/22/16 11:05 (Lipitor) 80 mg HS PO 12/19/16 21:00 12/21/16 21:08 (Plavix) 75 mg DAILY PO 12/20/16 09:00 12/22/16 11:05 (PROzac) 20 mg BID PO 12/19/16 21:00 12/22/16 11:06 (Imdur) 30 mg DAILY@0700 PO 12/19/16 15:15 12/22/16 06:38 (Restoril) 15 mg HS PRN PO 12/19/16 15:15 (Robitussin Dm 200-20 Mg/10 ml Liq) 10 ml Q6H PRN PO 12/19/16 16:30 (Duoneb Neb) 1 ampule Q6HR WHILE AWAKE NEB NEB 12/19/16 16:30 12/22/16 08:40 ([place] 5-325 Mg) 1 tab Q4H PRN PO 12/20/16 08:45 12/22/16 10:01 ([place] 10-325 Mg) 1 tab Q4H PRN PO 12/20/16 08:45 (Morphine Inj) 4 mg Q4H PRN IV PUSH 12/20/16 09:00 (Proair Hfa Inh) 2 puff Q4H PRN INH 12/21/16 11:15 12/22/16 03:16 (SoluMEDROL INJ) 40 mg BID IV PUSH 12/21/16 21:00 12/22/16 11:04 (Catapres) 0.1 mg Q6H PRN PO 12/21/16 16:30 (Duoneb Neb) 1 ampule Q2HR NEB PRN NEB 12/22/16 06:30 12/22/16 06:30 (KCl) 20 meq DAILY PO 12/22/16 11:45 (Lopressor) 75 mg Q12HR PO 12/22/16 11:45 (Lasix Inj) 20 mg BID@09,18 IV PUSH 12/22/16 12:15 Levofloxacin/ Dextrose 150 ml @ 100 mls/hr Q48H IV 12/22/16 13:00 A/P Problem List: (1) Sepsis ICD Code: A41.9 - Sepsis, unspecified organism (2) Diarrhea in adult patient ICD Code: R19.7 - Diarrhea, unspecified (3) Leucocytosis ICD Code: D72.829 - Elevated white blood cell count, unspecified (4) Acute renal failure superimposed on stage 2 chronic kidney disease ICD Code: N17.9 - Acute kidney failure, unspecified; N18.2 - Chronic kidney disease, stage 2 (mild) (5) COPD (chronic obstructive pulmonary disease) ICD Code: J44.9 - Chronic obstructive pulmonary disease Status: Chronic Assessment and Plan Sepsis/ C diff Patient meets criteria with leukocytosis, tachycardia, diarrhea illness, CT scan showing possible colitis whether inflammatory versus infectious. Patient was given Flagyl in emergency department. C diff positive. S/p IVFs. Antibiotics changed to PO vancomycin. Improving. - continue PO vancomycin to complete a course. - pain control. Chronic obstructive pulmonary disease/ Acute on chronic CHF/ PNA Patient does have increased shortness of breath with hypoxia. CXR with small right effusion. Repeat CXR with concern for left infiltrate. - Continue duo nebs standing and as needed albuterol. - wean Solumedrol IV. - IS. - Encourage ambulation. - start Levaquin IV. - diurese with Lasix 20 mg IV BID. - pulmonology consult requested. - walk test prior to d/c. Acute renal failure Superimposed on chronic kidney disease stage II. Improved. - d/c IV fluids and encourage PO intake. - Monitor renal function while diuresing. DVT prevention: Sequential compression devices Discharge Planning Awaiting improvement in respiratory status, then [facility]. Florencio Werner DO Dec 22, 2016 13:08
[2016-12-22] MEDS: ACETAMINOPHEN/HYDROcodone 325 MG/10 MG TAB PO PRN ×2 (15:02→19:07)
[2016-12-22] MEDS: LEVOFLOXACIN 750 MG PREMIX INJ 150 ML IV SCH (15:04)
[2016-12-22] MEDS: POTASSIUM CHLORIDE 20 MEQ CONTROLLED RELEASE TAB PO SCH (15:08)
[2016-12-22] MEDS: METOPROLOL TARTRATE 25 MG TAB PO SCH ×2 (15:16→21:08)
[2016-12-22] MEDS: FUROSEMIDE 20 MG/2 ML VIAL IV PUSH SCH ×2 (15:16→19:09)
--- NOTE | 2016-12-22 18:37 | MB ---
cc: BLAIR LARSEN DATE OF CONSULTATION: 12/22/2016. REASON FOR CONSULTATION: Evaluation of COPD exacerbation. REQUESTING PHYSICIAN: Dr. Florencio Werner. HISTORY OF PRESENT ILLNESS: Ms. Gordon is a 71-year-old female with history of coronary artery disease status post CABG, multiple PTCAs and stents placed. The patient was recently admitted in this hospital with shortness breath and NSTEMI and she had a heart cath done by Dr. Ramon. The patient was discharged to a rehab center. She was released from the rehab on Sunday. She was feeling weak. She had diarrhea and was feeling weak. She was seen by her primary care physician and given IV fluids in the office. The next day she was not feeling well and decided to come back to the hospital. She had a workup done in the hospital. She was complaining of abdominal pain and diarrhea. Her initial CBC showed white blood cell count of 25,000, hemoglobin 11.6, hematocrit 34.8, MCV 86. Repeat CBC showed white blood cell count 12.6. Her sodium was 138, potassium 4.3, chloride 108, carbon dioxide 20, BUN 23, creatinine 1.10. Her chest x-ray shows patchy left lower lobe infiltrate with pleural effusion. PAST MEDICAL HISTORY: Her past medical history is significant for: 1. History of coronary artery disease status post CABG. 2. History of multiple cardiac stents. 3. Cardiomyopathy. 4. COPD. 5. Hypertension. 6. Gastroesophageal reflux. MEDICATIONS: She is currently takin. Levaquin 750 milligrams q. 48 hours. 2. Lasix 20 milligrams twice a day. 3. Potassium 20 milliequivalents a day. 4. Albuterol and Atrovent nebulizer treatment. 5. Solu-Medrol 40 milligrams twice a day. 6. Clonidine PRN. 7. Albuterol inhaler PRN. 8. Plavix 75 milligrams a day. 9. Aspirin 81 milligrams a day. 10. Lortab for pain as needed. 11. Amlodipine 5 milligrams twice a day. 12. Lipitor 80 milligrams at nighttime. 13. Prozac 20 milligrams a day. 14. Vancomycin 125 milligrams four times a day p.o. 15. Xanax PRN. 16. Imdur 30 milligrams a day. 17. Temazepam 50 milligrams at nighttime. ALLERGIES: 1. ZITHROMAX. 2. CEPHALEXIN. 3. CODEINE. 4. FLUTICASONE. 5. LISINOPRIL. 6. LOSARTAN. 7. SOLU-MEDROL. SOCIAL HISTORY: She is and lives alone. 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 FAMILY HISTORY: She had two children, one son . REVIEW OF SYSTEMS: She walks short distances. She has been smoking. She had quit smoking but after her son's , she picked up smoking again. No alcohol abuse. FAMILY HISTORY: Noncontributory. REVIEW OF SYSTEMS: Her weight is stable. No headache or dizziness. No malignancy. No DVT or pulmonary embolism. PHYSICAL EXAMINATION: GENERAL: The patient is an elderly female mild short of breath. VITAL SIGNS: Blood pressure 146/74, heart rate 100, respirations 14, temperature 95.8. HEAD, EYES, EARS, NOSE, THROAT: Pupils are equal and reactive. Oral mucosa and nasal mucosa are normal. NECK: The neck is supple. JVP not raised. CHEST: Air entry equal bilaterally. No rhonchi. CARDIOVASCULAR: S1-S2 normal. ABDOMEN: Abdomen benign. EXTREMITIES: No edema. IMPRESSION: 1. COPD. 2. Left basal infiltrate 3. Mild pleural effusion. 5. Cardiomyopathy. 6. Coronary artery disease status post CABG and multiple stent placements. 7. Nicotine use. PLAN: 1. Will check her Pulmonary function studies. 2. I advised her to quit smoking. 3. Give her aerosol treatment with IV Solu-Medrol. 4. Monitor her electrolytes. 5. She is being gently diuresed. 6. Monitor her BUN and creatinine. Further treatment will depend on the course in the hospital. Thank you, Dr. Werner, for this consult. MD JEFFERY Galeana/JCC /5:27 PM /6:18 PM MTDTori
[2016-12-22] MEDS: ATORVASTATIN 40 MG TAB PO SCH (21:09)
[2016-12-23] VITALS (7 sets, daily range): BP systolic 136–154; BP diastolic 71–90; PULSE 70–83; RESP 18–19; TEMP 95.9–98.1; O2SAT 93–97
[2016-12-23] MEDS: ISOSORBIDE MONONITRATE 30 MG TAB PO SCH ×2 (05:39→10:10)
[2016-12-23] MEDS: RESP: ALBUTEROL 2.5 MG/IPRATROPIUM 0.5 MG NEB (SCH) NEB ×3 (07:58→19:33)
[2016-12-23 08:20] LABS: MEAN CELL VOLUME 87.1 FL (80.0-100.0); MEAN CORPUSCULAR HEMOGLOBIN 27.7 PG (27.0-34.0); MEAN CORPUSCULAR HGB CONC 31.9 % (32.0-36.0); PLATELET COUNT 194 TH/MM3 (150-450); RED BLOOD COUNT 3.78 MIL/MM3 (4.00-5.30); RED CELL DISTRIBUTION WIDTH 14.7 % (11.6-17.2); REVIEW FLAG FINAL
[2016-12-23 08:29] LABS: POTASSIUM 4.7 MEQ/L (3.5-5.1)
[2016-12-23 08:33] LABS: BICARBONATE 25.7 MEQ/L (21.0-32.0); MAGNESIUM 2.1 MG/DL (1.5-2.5)
[2016-12-23] MEDS: SODIUM CHLORIDE 0.9% FLUSH 10 ML FLUSH IV FLUSH SCH ×2 (09:00→22:01)
--- NOTE | 2016-12-23 09:11 | HHI.PR ---
Subjective Remarks The patient complained of one bad episode of diarrhea this morning. She still had some abdominal cramping. She says her shortness of breath is improved. No other acute complaints. Objective Vitals Vital Signs Date Time Temp Pulse Resp B/P (MAP) Pulse Ox O2 Delivery O2 Flow Rate FiO2 12/23/16 08:02 95 Nasal Cannula 2.00 12/23/16 08:00 97.5 83 19 154/90 (111) 97 12/23/16 00:00 95.9 81 18 137/72 (93) 93 12/22/16 21:02 95 Nasal Cannula 2.00 12/22/16 20:00 Nasal Cannula 2.00 12/22/16 20:00 96.4 48 18 111/50 (70) 100 12/22/16 16:02 18 12/22/16 16:00 95.8 137 20 131/67 (88) 97 12/22/16 12:00 95.8 100 14 146/74 (98) 93 12/22/16 11:06 20 I/O 12/22/16 12/22/16 12/22/16 12/23/16 12/23/16 12/23/16 07:00 15:00 23:00 07:00 15:00 23:00 Intake Total 300 ml 236 ml 500 ml Balance 300 ml 236 ml 500 ml Intake Oral 300 ml 236 ml 500 ml # Voids 4 1 1 3 # Bowel Movements 1 0 1 Result Diagram: 12/23/16 0800 12/23/16 0800 Imaging Last Impressions Chest X-Ray 12/21/16 0000 Signed Impressions: Service Date/Time: November 13:55 - CONCLUSION: Patchy left lower lung infiltrates and pleural effusion. Guilherme Dumas MD Abdomen/Pelvis CT 12/19/16 0000 Signed Impressions: Service Date/Time: Monday, December 19, 2016 10:10 - CONCLUSION: 1. Mild induration of the fat about the right colon and findings suggestive of diffuse wall thickening in the right colon and transverse colon. This is a nonspecific constellation of findings would raise the possibility of an inflammatory or infectious process. 2. Multiple small sigmoid diverticula without radiographic evidence of diverticulitis. 3. Small bilateral pleural effusions. Guilherme Dumas MD Objective Remarks GENERAL: Well-developed, well-nourished, NAD. HEENT: Head is normocephalic without any lesions or masses noted. Facial features are symmetric. Eyes: Pupils equal round reactive to light. Extraocular muscles are intact. Conjunctivae were clear. Oropharyngeal: Pharynx without any erythema edema. Tongue is midline without deviation. Buccal mucosa is moist without any masses or lesions NECK: Supple without any masses. Trachea midline no deviation. No JVD, no bruits are appreciated CARDIAC: Regular rhythm, regular rate. S1/S2 are heard. No murmurs gallops or rubs. LUNGS: Decreased air movement. ABDOMEN: Soft, mild generalized abdominal tenderness. Nondistended. Bowel sounds heard in all 4 quadrants. No organomegaly or masses. Negative rebound, negative guarding. EXTREMITIES: No edema, pulses are equal bilaterally. No cyanosis or clubbing. NEUROLOGY: Cranial nerves II through XII grossly intact. Muscle strength 5/5 in upper and lower extremities bilaterally. Deep tendon reflexes are 2+ in upper and lower extremities bilaterally. PSYCH: Mood and affect appropriate. Medications and IVs Current Medications Medications (Trade) Dose Ordered Sig/Samy Route Start Time Stop Time Status Last Admin (VANCOMYCIN for oral use only) 125 mg QID PO 12/19/16 18:00 01/02/17 17:59 12/22/16 23:12 (NS Flush) 2 ml UNSCH PRN IV FLUSH 12/19/16 14:15 (NS Flush) 2 ml BID IV FLUSH 12/19/16 21:00 12/22/16 21:08 (Tylenol) 650 mg Q4H PRN PO 12/19/16 14:15 (Zofran Inj) 4 mg Q6H PRN IVP 12/19/16 14:15 12/19/16 17:54 (Narcan Inj) 0.4 mg UNSCH PRN IV PUSH 12/19/16 14:15 (Milk Of Magnesia Liq) 30 ml Q12H PRN PO 12/19/16 14:15 (Xanax) 0.5 mg Q8H PRN PO 12/19/16 15:15 12/22/16 17:34 (Norvasc) 5 mg BID PO 12/19/16 21:00 12/22/16 21:10 (Ecotrin Ec) 81 mg DAILY PO 12/20/16 09:00 12/22/16 11:05 (Lipitor) 80 mg HS PO 12/19/16 21:00 12/22/16 21:09 (Plavix) 75 mg DAILY PO 12/20/16 09:00 12/22/16 11:05 (PROzac) 20 mg BID PO 12/19/16 21:00 12/22/16 21:09 (Imdur) 30 mg DAILY@0700 PO 12/19/16 15:15 12/23/16 05:39 (Restoril) 15 mg HS PRN PO 12/19/16 15:15 (Robitussin Dm 200-20 Mg/10 ml Liq) 10 ml Q6H PRN PO 12/19/16 16:30 (Duoneb Neb) 1 ampule Q6HR WHILE AWAKE NEB NEB 12/19/16 16:30 12/23/16 07:58 ([place] 5-325 Mg) 1 tab Q4H PRN PO 12/20/16 08:45 12/22/16 10:01 ([place] 10-325 Mg) 1 tab Q4H PRN PO 12/20/16 08:45 12/22/16 19:07 (Morphine Inj) 4 mg Q4H PRN IV PUSH 12/20/16 09:00 (Proair Hfa Inh) 2 puff Q4H PRN INH 12/21/16 11:15 12/22/16 03:16 (SoluMEDROL INJ) 40 mg BID IV PUSH 12/21/16 21:00 12/22/16 21:09 (Catapres) 0.1 mg Q6H PRN PO 12/21/16 16:30 (Duoneb Neb) 1 ampule Q2HR NEB PRN NEB 12/22/16 06:30 12/22/16 06:30 (KCl) 20 meq DAILY PO 12/22/16 11:45 12/22/16 15:08 (Lopressor) 75 mg Q12HR PO 12/22/16 11:45 12/22/16 21:08 (Lasix Inj) 20 mg BID@09,18 IV PUSH 12/22/16 12:15 12/22/16 19:09 Levofloxacin/ Dextrose 150 ml @ 100 mls/hr Q48H IV 12/22/16 13:00 12/22/16 15:04 A/P Problem List: (1) Sepsis ICD Code: A41.9 - Sepsis, unspecified organism (2) Diarrhea in adult patient ICD Code: R19.7 - Diarrhea, unspecified (3) Leucocytosis ICD Code: D72.829 - Elevated white blood cell count, unspecified (4) Acute renal failure superimposed on stage 2 chronic kidney disease ICD Code: N17.9 - Acute kidney failure, unspecified; N18.2 - Chronic kidney disease, stage 2 (mild) (5) COPD (chronic obstructive pulmonary disease) ICD Code: J44.9 - Chronic obstructive pulmonary disease Status: Chronic Assessment and Plan Sepsis/ C diff Patient meets criteria with leukocytosis, tachycardia, diarrhea illness, CT scan showing possible colitis whether inflammatory versus infectious. Patient was given Flagyl in emergency department. C diff positive. S/p IVFs. Antibiotics changed to PO vancomycin. Improving. - continue PO vancomycin to complete a course. - pain control. Chronic obstructive pulmonary disease/ Acute on chronic CHF/ PNA Patient does have increased shortness of breath with hypoxia. CXR with small right effusion. Repeat CXR with concern for left infiltrate. Pulmonology consult appreciated. - Continue duo nebs standing and as needed albuterol. - Solumedrol IV BID. - IS. - Encourage ambulation. - continue Levaquin IV. - diurese with Lasix 20 mg PO BID. - follow up with pulmonology. - walk test prior to d/c. Acute renal failure Superimposed on chronic kidney disease stage II. - d/c IV fluids and encourage PO intake. - Monitor renal function while diuresing. DVT prevention: Sequential compression devices Discharge Planning Awaiting improvement in respiratory status, then [facility]. Florencio Werner DO Dec 23, 2016 09:11
[2016-12-23] MEDS: methylPREDNISolone SOD SUCC 40 MG/1 ML VIAL IV PUSH SCH ×2 (10:10→21:58)
[2016-12-23] MEDS: ASPIRIN EC 81 MG TABEC PO SCH (10:10)
[2016-12-23] MEDS: amLODIPine BESYLATE 5 MG TAB PO SCH ×2 (10:11→22:00)
[2016-12-23] MEDS: CLOPIDOGREL 75 MG TAB PO SCH (10:11)
[2016-12-23] MEDS: VANCOMYCIN 500 MG VIAL (FOR ORAL USE ONLY) PO SCH ×4 (10:11→21:58)
[2016-12-23] MEDS: POTASSIUM CHLORIDE 20 MEQ CONTROLLED RELEASE TAB PO SCH (10:11)
[2016-12-23] MEDS: FLUoxetine HCL 20 MG CAP PO SCH ×2 (10:11→21:00)
[2016-12-23] MEDS: METOPROLOL TARTRATE 25 MG TAB PO SCH ×2 (10:12→21:59)
[2016-12-23] MEDS: ALPRAZolam 0.5 MG TAB PO PRN ×2 (10:30→22:00)
[2016-12-23] MEDS: ACETAMINOPHEN/HYDROcodone 325 MG/10 MG TAB PO PRN ×2 (10:31→15:22)
[2016-12-23] MEDS: FUROSEMIDE 20 MG TAB PO SCH (17:34)
--- NOTE | 2016-12-23 18:00 | HHI.PR ---
Subjective Remarks 71 YOWF with COPD exac, Pl eff, basalpn, c'diff colitis Had 3 loose BM No fever Weak, mild sob No CP Objective Vital Signs Vital Signs Date Time Temp Pulse Resp B/P (MAP) Pulse Ox O2 Delivery O2 Flow Rate FiO2 12/23/16 16:22 20 12/23/16 16:00 98.1 79 18 136/77 (96) 95 12/23/16 12:00 97.7 80 18 138/75 (96) 94 12/23/16 08:02 95 Nasal Cannula 2.00 12/23/16 08:00 97.5 83 19 154/90 (111) 97 12/23/16 08:00 Nasal Cannula 2.00 12/23/16 00:00 95.9 81 18 137/72 (93) 93 12/22/16 21:02 95 Nasal Cannula 2.00 12/22/16 20:00 Nasal Cannula 2.00 12/22/16 20:00 96.4 48 18 111/50 (70) 100 I/O 12/22/16 12/22/16 12/22/16 12/23/16 12/23/16 12/23/16 07:00 15:00 23:00 07:00 15:00 23:00 Intake Total 300 ml 236 ml 500 ml Balance 300 ml 236 ml 500 ml Intake Oral 300 ml 236 ml 500 ml # Voids 4 1 1 3 # Bowel Movements 1 0 1 Result Diagram: 12/23/16 0800 12/23/16 0800 Objective Remarks GENERAL: Elderly female, weak, mild sob SKIN: Warm and dry. HEAD: Normocephalic. EYES: No scleral icterus. No injection or drainage. NECK: Supple, trachea midline. No JVD or lymphadenopathy. CARDIOVASCULAR: Regular rate and rhythm without murmurs, gallops, or rubs. RESPIRATORY: Breath sounds equal bilaterally. No accessory muscle use. GASTROINTESTINAL: Abdomen soft, non-tender, nondistended. MUSCULOSKELETAL: No cyanosis, or edema. BACK: Nontender without obvious deformity. No CVA tenderness. A/P Assessment and Plan COPD Exac Basl Pneumonia C. diff colitis Pleural eff, small CAD Nicotine use PLAN: Aerosol nebs IV Solumedrol Supplement 02 PO Vanco Monitor CBC Jayy Bhakta MD Dec 23, 2016 18:00
[2016-12-23] MEDS: ATORVASTATIN 40 MG TAB PO SCH (21:59)
[2016-12-24] VITALS (7 sets, daily range): BP systolic 131–169; BP diastolic 62–72; PULSE 63–75; RESP 15–20; TEMP 96.2–97.4; O2SAT 91–97
[2016-12-24] MEDS: ALBUTEROL SULFATE 90 MCG/ACT HFA 8 GM INHALER INH PRN (06:40)
[2016-12-24 08:02] LABS: POTASSIUM 4.9 MEQ/L (3.5-5.1)
[2016-12-24 08:05] LABS: BICARBONATE 25.8 MEQ/L (21.0-32.0); MAGNESIUM 2.2 MG/DL (1.5-2.5)
[2016-12-24] MEDS: amLODIPine BESYLATE 5 MG TAB PO SCH ×2 (08:13→21:38)
[2016-12-24] MEDS: ASPIRIN EC 81 MG TABEC PO SCH (08:13)
[2016-12-24] MEDS: FUROSEMIDE 20 MG TAB PO SCH ×2 (08:13→18:30)
[2016-12-24] MEDS: POTASSIUM CHLORIDE 20 MEQ CONTROLLED RELEASE TAB PO SCH (08:14)
[2016-12-24] MEDS: METOPROLOL TARTRATE 25 MG TAB PO SCH ×2 (08:14→21:37)
[2016-12-24] MEDS: ACETAMINOPHEN/HYDROcodone 325 MG/10 MG TAB PO PRN ×4 (08:14→21:40)
[2016-12-24] MEDS: ISOSORBIDE MONONITRATE 30 MG TAB PO SCH (08:15)
[2016-12-24] MEDS: VANCOMYCIN 500 MG VIAL (FOR ORAL USE ONLY) PO SCH ×4 (08:15→21:40)
[2016-12-24] MEDS: ALPRAZolam 0.5 MG TAB PO PRN ×2 (08:15→21:38)
[2016-12-24] MEDS: CLOPIDOGREL 75 MG TAB PO SCH (08:15)
[2016-12-24] MEDS: FLUoxetine HCL 20 MG CAP PO SCH ×2 (08:15→21:00)
[2016-12-24] MEDS: methylPREDNISolone SOD SUCC 40 MG/1 ML VIAL IV PUSH SCH (08:15)
[2016-12-24] MEDS: RESP: ALBUTEROL 2.5 MG/IPRATROPIUM 0.5 MG NEB (SCH) NEB ×3 (08:24→19:35)
[2016-12-24] MEDS: SODIUM CHLORIDE 0.9% FLUSH 10 ML FLUSH IV FLUSH SCH ×2 (12:44→21:00)
[2016-12-24] MEDS: LEVOFLOXACIN 750 MG PREMIX INJ 150 ML IV SCH (12:44)
[2016-12-24] MEDS ORDERED: AZITHROMYCIN 250 MG TAB PO SCH (17:00)
--- NOTE | 2016-12-24 17:10 | HHI.PR ---
Subjective Remarks Patient seen and examined today for follow-up on Clostridium difficile infection. Patient states that she does feel little better today. However she has had 5 bowel movements in the last 24 hours. States her breathing has minimally improved. Patient states that she does not want to go to another nursing facility that he wants to go home upon discharge. Objective Vitals Vital Signs Date Time Temp Pulse Resp B/P (MAP) Pulse Ox O2 Delivery O2 Flow Rate FiO2 12/24/16 14:56 97.2 63 15 135/62 (86) 91 12/24/16 13:45 20 12/24/16 08:30 97.4 75 15 159/72 (101) 97 12/24/16 08:24 97 Nasal Cannula 2.00 12/24/16 00:00 97.4 70 18 131/66 (87) 95 12/23/16 21:00 Nasal Cannula 2.00 12/23/16 20:00 97.6 70 18 144/71 (95) 97 12/23/16 19:33 96 Nasal Cannula 2.00 I/O 12/23/16 12/23/16 12/23/16 12/24/16 12/24/16 12/24/16 07:00 15:00 23:00 07:00 15:00 23:00 Intake Total 500 ml 200 ml Output Total 4 ml 300 ml Balance 500 ml -4 ml -100 ml Intake Oral 500 ml 200 ml Output Urine Total 4 ml 300 ml # Voids 3 # Bowel Movements 0 1 1 1 Result Diagram: 12/23/16 0800 12/24/16 0700 Objective Remarks GENERAL: Well-developed, well-nourished, in no acute distress. alert and orientated HEENT: Head is normocephalic without any lesions or masses noted. Facial features are symmetric. Eyes: Extraocular muscles are intact. Conjunctivae were clear. NECK: Supple without any masses. Trachea midline no deviation. No JVD CARDIAC: Regular rhythm, regular rate. S1/S2 are heard. No murmurs gallops or rubs. LUNGS: Clear to auscultation bilaterally. No wheeze, rhonchi or rales. No use of accessory muscles on inspiration or expiration. ABDOMEN: Soft, nontender. Nondistended. Bowel sounds heard in all 4 quadrants. No organomegaly or masses. Negative rebound, negative guarding EXTREMITIES: No edema, pulses are equal bilaterally. No cyanosis or clubbing NEUROLOGY: Mood and affect appear appropriate. Cranial nerves II through XII grossly intact. Moving all extremities, speech is clear Urinary Catheter: No Vascular Central Line Catheter: No A/P Assessment and Plan Sepsis secondary to clostridium difficile/possible left lung infiltrate - Patient met criteria on admission with with leukocytosis, tachycardia, diarrhea illness, CT scan showing possible colitis whether inflammatory versus infectious - Patient was given Flagyl in emergency department - Was started on Cipro, Flagyl, IV until cultures are available for appropriate antibiotic - Continued on vancomycin by mouth for 2 weeks per infectious disease criteria - Posterior difficile was positive, blood cultures are negative for 5 days, no stool enteric pathogens Clostridium difficile infection, initial infection - Secondary to hospitalization, we have facility, antibiotic use - Continue vancomycin by mouth for 2 weeks - Start cholestyramine Patchy left lower lung infiltrate and pleural effusion by chest x-ray - Could be secondary to healthcare associated pneumonia due to recent hospitalization, nursing facility placement - Patient started on Levaquin, however with patient having Clostridium difficile , worsening renal functions will change antibiotics - Start Zithromax 500 mg daily Leukocytosis, resolved - Likely secondary to combination of infection, sepsis, dehydration - Continue IV fluids - Monitor CBC Acute renal failure superimposed on chronic kidney disease stage II - Continue IV fluids - Monitor renal function Chronic obstructive pulmonary disease - Continue duo nebs standing and as needed - Discontinue Solu-Medrol, start prednisone 20 mg twice daily - Pulmonology following the patient - Incentive spirometry - Encourage ambulation DVT prevention - Sequential compression devices Danis Peña Dec 24, 2016 17:10
--- NOTE | 2016-12-24 17:29 | HHI.PR ---
Subjective Remarks 71 YOWF with COPD exac, Pl eff, basalpn, c'diff colitis No fever Weak, mild sob No CP Breathing little better Objective Vital Signs Vital Signs Date Time Temp Pulse Resp B/P (MAP) Pulse Ox O2 Delivery O2 Flow Rate FiO2 12/24/16 14:56 97.2 63 15 135/62 (86) 91 12/24/16 13:45 20 12/24/16 08:30 97.4 75 15 159/72 (101) 97 12/24/16 08:24 97 Nasal Cannula 2.00 12/24/16 00:00 97.4 70 18 131/66 (87) 95 12/23/16 21:00 Nasal Cannula 2.00 12/23/16 20:00 97.6 70 18 144/71 (95) 97 12/23/16 19:33 96 Nasal Cannula 2.00 I/O 12/23/16 12/23/16 12/23/16 12/24/16 12/24/16 12/24/16 07:00 15:00 23:00 07:00 15:00 23:00 Intake Total 500 ml 200 ml Output Total 4 ml 300 ml Balance 500 ml -4 ml -100 ml Intake Oral 500 ml 200 ml Output Urine Total 4 ml 300 ml # Voids 3 # Bowel Movements 0 1 1 1 Result Diagram: 12/23/16 0800 12/24/16 0700 Objective Remarks GENERAL: Elderly female, weak, mild sob SKIN: Warm and dry. HEAD: Normocephalic. EYES: No scleral icterus. No injection or drainage. NECK: Supple, trachea midline. No JVD or lymphadenopathy. CARDIOVASCULAR: Regular rate and rhythm without murmurs, gallops, or rubs. RESPIRATORY: Breath sounds equal bilaterally. No accessory muscle use. GASTROINTESTINAL: Abdomen soft, non-tender, nondistended. MUSCULOSKELETAL: No cyanosis, or edema. BACK: Nontender without obvious deformity. No CVA tenderness. A/P Assessment and Plan COPD Exac Basl Pneumonia C. diff colitis Pleural eff, small CAD Nicotine use PLAN: Aerosol nebs IV Solumedrol Supplement 02 PO Vanco Monitor CBC OOB And ambulate Jayy Bhakta MD Dec 24, 2016 17:29
[2016-12-24] MEDS: SODIUM CHLOR 0.9% 1000 ML INJ 1,000 ML IV SCH (18:32)
[2016-12-24] MEDS: CHOLESTYRAMINE 4 GM PACKET PO SCH (20:04)
--- NOTE | 2016-12-24 21:12 | EKG ---
Date Performed: 12/22/2016 Time Performed: 13:42:46 PTAGE: 71 years EKG: Sinus rhythm WITH OCCASIONAL VENTRICULAR PREMATURE COMPLEXES POSSIBLE LEFT ATRIAL ENLARGEMENT LEFT VENTRICULAR HY PERTROPHY AND ST-T CHANGE POSSIBLE INFERIOR MYOCARDIAL INFARCTION ABNORMAL ECG PREVIOUS TRACING : 12/07/2016 04.06 DOCTOR: Marianne Lombardo Interpretating Date/Time 12/24/2016 21:02:45
[2016-12-24] MEDS: DOXYCYCLINE HYCLATE 100 MG TAB PO SCH (21:37)
[2016-12-24] MEDS: predniSONE 20 MG TAB PO SCH (21:38)
[2016-12-24] MEDS: ATORVASTATIN 40 MG TAB PO SCH (21:44)
[2016-12-25] VITALS (7 sets, daily range): BP systolic 131–161; BP diastolic 66–80; PULSE 61–75; RESP 17–20; TEMP 96.1–97.8; O2SAT 91–95
[2016-12-25 06:51] LABS: AUTOMATED NEUTROPHIL # 8.7 TH/MM3 (1.8-7.7); BASOPHIL % 0.5 % (0.0-2.0); EOSINOPHIL % 0.1 % (0.0-4.0); HEMATOCRIT 32.9 % (35.0-46.0); LYMPH % 5.3 % (9.0-44.0); LYMPHOCYTE # 0.5 TH/MM3 (1.0-4.8); MEAN CELL VOLUME 86.3 FL (80.0-100.0); MEAN CORPUSCULAR HEMOGLOBIN 27.6 PG (27.0-34.0); MONO % 3.4 % (0.0-8.0); NEUT % 90.7 % (16.0-70.0); PLATELET COUNT 202 TH/MM3 (150-450); RED BLOOD COUNT 3.81 MIL/MM3 (4.00-5.30); RED CELL DISTRIBUTION WIDTH 14.9 % (11.6-17.2); WHITE BLOOD COUNT 9.5 TH/MM3 (4.0-11.0)
[2016-12-25 06:55] LABS: HEMO FLAGS DIFF FINAL
[2016-12-25 07:01] LABS: POTASSIUM 4.7 MEQ/L (3.5-5.1)
[2016-12-25 07:04] LABS: MAGNESIUM 2.2 MG/DL (1.5-2.5)
[2016-12-25] MEDS: RESP: ALBUTEROL 2.5 MG/IPRATROPIUM 0.5 MG NEB (SCH) NEB ×3 (08:05→21:08)
[2016-12-25] MEDS: DOXYCYCLINE HYCLATE 100 MG TAB PO SCH ×2 (09:00→21:00)
[2016-12-25] MEDS: SODIUM CHLORIDE 0.9% FLUSH 10 ML FLUSH IV FLUSH SCH ×2 (09:27→21:38)
[2016-12-25] MEDS: POTASSIUM CHLORIDE 20 MEQ CONTROLLED RELEASE TAB PO SCH (09:28)
[2016-12-25] MEDS: ASPIRIN EC 81 MG TABEC PO SCH (09:28)
[2016-12-25] MEDS: predniSONE 20 MG TAB PO SCH ×2 (09:28→21:37)
[2016-12-25] MEDS: FUROSEMIDE 20 MG TAB PO SCH ×2 (09:29→18:24)
[2016-12-25] MEDS: amLODIPine BESYLATE 5 MG TAB PO SCH ×2 (09:29→21:37)
[2016-12-25] MEDS: METOPROLOL TARTRATE 25 MG TAB PO SCH ×2 (09:29→21:38)
[2016-12-25] MEDS: VANCOMYCIN 500 MG VIAL (FOR ORAL USE ONLY) PO SCH ×4 (09:30→21:37)
[2016-12-25] MEDS: FLUoxetine HCL 20 MG CAP PO SCH ×2 (09:30→21:37)
[2016-12-25] MEDS: CHOLESTYRAMINE 4 GM PACKET PO SCH ×2 (09:30→21:37)
[2016-12-25] MEDS: CLOPIDOGREL 75 MG TAB PO SCH (09:30)
[2016-12-25] MEDS: ALPRAZolam 0.5 MG TAB PO PRN ×2 (09:30→21:37)
[2016-12-25] MEDS: ACETAMINOPHEN/HYDROcodone 325 MG/10 MG TAB PO PRN (09:31)
--- NOTE | 2016-12-25 11:47 | HHI.PR ---
Subjective Remarks Patient seen and examined today for follow-up on Clostridium difficile, pneumonia, hypoxia. Patient states that she still having increased bowel movements at least for overnight. Still watery consistency. Patient states that she gets significantly short of breath upon movement in activity. Unable to walk 10 feet without getting short of breath. Objective Vitals Vital Signs Date Time Temp Pulse Resp B/P (MAP) Pulse Ox O2 Delivery O2 Flow Rate FiO2 12/25/16 08:11 95 Nasal Cannula 2.00 12/25/16 08:00 96.6 73 17 147/66 (93) 91 12/25/16 00:00 97.2 61 20 144/67 (92) 92 12/24/16 20:00 96.2 74 20 142/66 (91) 94 12/24/16 19:35 93 Nasal Cannula 2.00 12/24/16 18:44 96.5 71 18 169/70 (103) 96 12/24/16 14:56 97.2 63 15 135/62 (86) 91 12/24/16 13:45 20 I/O 12/24/16 12/24/16 12/24/16 12/25/16 12/25/16 12/25/16 07:00 15:00 23:00 07:00 15:00 23:00 Intake Total 200 ml 1514 ml 504 ml Output Total 300 ml Balance -100 ml 1514 ml 504 ml Intake Oral 200 ml 1330 ml IV Total 184 ml 504 ml Output Urine Total 300 ml # Voids 4 2 # Bowel Movements 1 1 1 Result Diagram: 12/25/16 0615 12/25/16 0615 Objective Remarks GENERAL: Well-developed, well-nourished, in no acute distress. alert and orientated HEENT: Head is normocephalic without any lesions or masses noted. Facial features are symmetric. Eyes: Extraocular muscles are intact. Conjunctivae were clear. NECK: Supple without any masses. Trachea midline no deviation. No JVD CARDIAC: Regular rhythm, regular rate. S1/S2 are heard. No murmurs gallops or rubs. LUNGS: Clear to auscultation bilaterally. No wheeze, rhonchi or rales. No use of accessory muscles on inspiration or expiration. ABDOMEN: Soft, nontender. Nondistended. Bowel sounds heard in all 4 quadrants. No organomegaly or masses. Negative rebound, negative guarding EXTREMITIES: No edema, pulses are equal bilaterally. No cyanosis or clubbing NEUROLOGY: Mood and affect appear appropriate. Cranial nerves II through XII grossly intact. Moving all extremities, speech is clear Urinary Catheter: No Vascular Central Line Catheter: No A/P Assessment and Plan Sepsis secondary to clostridium difficile/possible left lung infiltrate - Patient met criteria on admission with with leukocytosis, tachycardia, diarrhea illness, CT scan showing possible colitis whether inflammatory versus infectious - Patient was given Flagyl in emergency department - Was started on Cipro, Flagyl, IV until cultures are available for appropriate antibiotic - Continued on vancomycin by mouth for 2 weeks per infectious disease criteria - Clostridium difficile was positive, blood cultures are negative for 5 days, no stool enteric pathogens Clostridium difficile infection, initial infection - Secondary to hospitalization, we have facility, antibiotic use - Continue vancomycin by mouth for 2 weeks - Continue cholestyramine Patchy left lower lung infiltrate and pleural effusion by chest x-ray - Could be secondary to healthcare associated pneumonia due to recent hospitalization, nursing facility placement - Patient started on Levaquin, however with patient having Clostridium difficile , worsening renal functions will change antibiotics - Continue doxycycline 100 mg twice daily Leukocytosis, resolved - Likely secondary to combination of infection, sepsis, dehydration - Continue IV fluids - Monitor CBC Acute renal failure superimposed on chronic kidney disease stage II - Continue IV fluids - Monitor renal function Chronic obstructive pulmonary disease - Continue duo nebs standing and as needed - Discontinue Solu-Medrol, start prednisone 20 mg twice daily - Pulmonology following the patient - Incentive spirometry - Encourage ambulation - Home oxygen walk study - Obtain chest x-ray today DVT prevention - Sequential compression devices Danis Peña Dec 25, 2016 11:47
--- NOTE | 2016-12-25 15:19 | RADRPT ---
EXAM DATE/TIME: 12/25/2016 14:37 [facility] COMPARISON: CT ABDOMEN & PELVIS W/O CONTRAST, December 19, 2016, 10:10. CHEST SINGLE AP, December 21, 2016, 13:55. INDICATIONS : Shortness of breath. MEDICAL HISTORY : Hypertension. Chronic obstructive pulmonary disease. Myocardial infarction. SURGICAL HISTORY : CABG. Coronary artery stent. ENCOUNTER: Subsequent ACUITY: 3 weeks PAIN SCORE: 0/10 LOCATION: Bilateral chest FINDINGS: Median sternotomy wires in place. Small bilateral pleural effusions and associated lower lobe airspac e disease. Cardiac lead is enlarged. Mild diffuse interstitial prominence unchanged from prior exam. Remainder of exam is stable. CONCLUSION: 1. Cardiomegaly with mild positive fluid balance. Small bilateral pleural effusions and associated lower lobe airspace disease. This has progressed on the right since prior exam. Prasad Brown MD on December 25, 2016 at 15:04 Board Certified Radiologist. This report was verified electronically.
[2016-12-25] MEDS: SODIUM CHLOR 0.9% 1000 ML INJ 1,000 ML IV SCH (17:03)
--- NOTE | 2016-12-25 19:09 | HHI.PR ---
Subjective Remarks 71 YOWF with COPD exac, Pl eff, basalpn, c'diff colitis No fever Weak, mild sob No CP Breathing little better no new complaint Objective Vital Signs Vital Signs Date Time Temp Pulse Resp B/P (MAP) Pulse Ox O2 Delivery O2 Flow Rate FiO2 12/25/16 16:00 97.7 71 19 138/80 (99) 92 12/25/16 12:00 97.8 68 18 131/72 (91) 93 12/25/16 10:31 18 12/25/16 08:11 95 Nasal Cannula 2.00 12/25/16 08:00 96.6 73 17 147/66 (93) 91 12/25/16 00:00 97.2 61 20 144/67 (92) 92 12/24/16 20:00 96.2 74 20 142/66 (91) 94 12/24/16 19:35 93 Nasal Cannula 2.00 I/O 12/24/16 12/24/16 12/24/16 12/25/16 12/25/16 12/25/16 07:00 15:00 23:00 07:00 15:00 23:00 Intake Total 200 ml 1514 ml 504 ml 60 ml Output Total 300 ml Balance -100 ml 1514 ml 504 ml 60 ml Intake Oral 200 ml 1330 ml IV Total 184 ml 504 ml 60 ml Output Urine Total 300 ml # Voids 4 2 # Bowel Movements 1 1 1 1 Result Diagram: 12/25/16 0615 12/25/16 0615 Objective Remarks GENERAL: Elderly female, weak, mild sob SKIN: Warm and dry. HEAD: Normocephalic. EYES: No scleral icterus. No injection or drainage. NECK: Supple, trachea midline. No JVD or lymphadenopathy. CARDIOVASCULAR: Regular rate and rhythm without murmurs, gallops, or rubs. RESPIRATORY: Breath sounds equal bilaterally. No accessory muscle use. GASTROINTESTINAL: Abdomen soft, non-tender, nondistended. MUSCULOSKELETAL: No cyanosis, or edema. BACK: Nontender without obvious deformity. No CVA tenderness. A/P Assessment and Plan COPD Exac Basl Pneumonia C. diff colitis Pleural eff, small CAD Nicotine use PLAN: Aerosol nebs Supplement 02 PO Vanco Monitor CBC OOB And ambulate Jayy Bhakta MD Dec 25, 2016 19:09
[2016-12-25] MEDS: ATORVASTATIN 40 MG TAB PO SCH (21:37)
[2016-12-26] VITALS (10 sets, daily range): BP systolic 144–170; BP diastolic 69–86; PULSE 66–80; RESP 18–28; TEMP 96.5–98.2; O2SAT 91–99
[2016-12-26] MEDS: ALBUTEROL SULFATE 90 MCG/ACT HFA 8 GM INHALER INH PRN (01:05)
[2016-12-26] MEDS: RESP: ALBUTEROL 2.5 MG/IPRATROPIUM 0.5 MG NEB (PRN) NEB (04:27)
[2016-12-26] MEDS: ALPRAZolam 0.5 MG TAB PO PRN ×2 (04:44→22:06)
[2016-12-26] MEDS: ISOSORBIDE MONONITRATE 30 MG TAB PO SCH ×2 (05:56→10:05)
[2016-12-26 06:38] LABS: AUTOMATED NEUTROPHIL # 5.4 TH/MM3 (1.8-7.7); BASOPHIL % 0.4 % (0.0-2.0); EOSINOPHIL % 0.1 % (0.0-4.0); HEMATOCRIT 34.6 % (35.0-46.0); LYMPH % 9.2 % (9.0-44.0); LYMPHOCYTE # 0.6 TH/MM3 (1.0-4.8); MEAN CELL VOLUME 86.7 FL (80.0-100.0); MEAN CORPUSCULAR HEMOGLOBIN 27.9 PG (27.0-34.0); MEAN CORPUSCULAR HGB CONC 32.2 % (32.0-36.0); MONO % 5.1 % (0.0-8.0); NEUT % 85.2 % (16.0-70.0); PLATELET COUNT 200 TH/MM3 (150-450); RED BLOOD COUNT 3.99 MIL/MM3 (4.00-5.30); WHITE BLOOD COUNT 6.3 TH/MM3 (4.0-11.0)
[2016-12-26 06:47] LABS: HEMO FLAGS DIFF FINAL
[2016-12-26 06:51] LABS: POTASSIUM 4.6 MEQ/L (3.5-5.1)
[2016-12-26 06:56] LABS: BICARBONATE 26.8 MEQ/L (21.0-32.0); MAGNESIUM 2.3 MG/DL (1.5-2.5)
[2016-12-26] MEDS: RESP: ALBUTEROL 2.5 MG/IPRATROPIUM 0.5 MG NEB (SCH) NEB ×3 (07:26→20:04)
[2016-12-26] MEDS: FLUoxetine HCL 20 MG CAP PO SCH ×2 (10:04→20:25)
[2016-12-26] MEDS: DOXYCYCLINE HYCLATE 100 MG TAB PO SCH ×2 (10:04→20:26)
[2016-12-26] MEDS: VANCOMYCIN 500 MG VIAL (FOR ORAL USE ONLY) PO SCH ×4 (10:04→20:25)
[2016-12-26] MEDS: FUROSEMIDE 20 MG TAB PO SCH ×2 (10:05→17:11)
[2016-12-26] MEDS: POTASSIUM CHLORIDE 20 MEQ CONTROLLED RELEASE TAB PO SCH (10:05)
[2016-12-26] MEDS: CLOPIDOGREL 75 MG TAB PO SCH (10:05)
[2016-12-26] MEDS: ASPIRIN EC 81 MG TABEC PO SCH (10:05)
[2016-12-26] MEDS: METOPROLOL TARTRATE 25 MG TAB PO SCH ×2 (10:05→20:25)
[2016-12-26] MEDS: predniSONE 20 MG TAB PO SCH ×2 (10:06→20:25)
[2016-12-26] MEDS: CHOLESTYRAMINE 4 GM PACKET PO SCH ×2 (10:06→20:26)
[2016-12-26] MEDS: amLODIPine BESYLATE 5 MG TAB PO SCH ×2 (10:06→20:25)
[2016-12-26] MEDS: SODIUM CHLORIDE 0.9% FLUSH 10 ML FLUSH IV FLUSH SCH ×2 (10:06→20:25)
[2016-12-26] MEDS ORDERED: OXYGENTANK NAS.CANULA (12:26)
--- NOTE | 2016-12-26 12:27 | HHI.PR ---
Subjective Remarks Patient seen and evaluated today in follow-up for C. difficile colitis and COPD with pneumonia. Doing well with current antibiotics. She is still quite short of breath. Objective Vitals Vital Signs Date Time Temp Pulse Resp B/P (MAP) Pulse Ox O2 Delivery O2 Flow Rate FiO2 12/26/16 08:00 97.9 72 20 165/86 (112) 99 12/26/16 07:27 93 Nasal Cannula 4.00 12/26/16 04:31 94 Nasal Cannula 4.00 12/26/16 04:30 Nasal Cannula 4.00 12/26/16 04:00 95 12/26/16 01:31 91 Nasal Cannula 3.00 12/26/16 00:00 97.1 66 18 144/69 (94) 91 12/25/16 21:12 93 Nasal Cannula 2.00 12/25/16 20:00 96.1 75 20 161/74 (103) 92 12/25/16 16:00 97.7 71 19 138/80 (99) 92 I/O 12/25/16 12/25/16 12/25/16 12/26/16 12/26/16 12/26/16 07:00 15:00 23:00 07:00 15:00 23:00 Intake Total 504 ml 210 ml 770 ml 210 ml Output Total 500 ml Balance 504 ml 210 ml 270 ml 210 ml Intake Oral 320 ml IV Total 504 ml 210 ml 450 ml 210 ml Output Urine Total 500 ml # Voids 2 1 # Bowel Movements 1 1 4 Result Diagram: 12/26/16 0547 12/26/16 0547 Imaging Last Impressions Chest X-Ray 12/25/16 0000 Signed Impressions: Service Date/Time: Sunday, December 25, 2016 14:37 - CONCLUSION: 1. Cardiomegaly with mild positive fluid balance. Small bilateral pleural effusions and associated lower lobe airspace disease. This has progressed on the right since prior exam. Prasad Brown MD Abdomen/Pelvis CT 12/19/16 0000 Signed Impressions: Service Date/Time: Monday, December 19, 2016 10:10 - CONCLUSION: 1. Mild induration of the fat about the right colon and findings suggestive of diffuse wall thickening in the right colon and transverse colon. This is a nonspecific constellation of findings would raise the possibility of an inflammatory or infectious process. 2. Multiple small sigmoid diverticula without radiographic evidence of diverticulitis. 3. Small bilateral pleural effusions. Guilherme Dumas MD Objective Remarks GENERAL: This is a well-nourished, well-developed patient, dyspneic at rest and with minimal toileting activities CARDIOVASCULAR: Regular rate and rhythm without murmurs, gallops, or rubs. RESPIRATORY: Decreased Breath sounds equal bilaterally. No wheezes, rales, or rhonchi. GASTROINTESTINAL: Abdomen soft, non-tender, nondistended. Normal active bowel sounds MUSCULOSKELETAL: Extremities without clubbing, cyanosis, or edema. NEURO: Alert & Oriented x4 to person, place, time, situation. Moves all ext x4 A/P Problem List: (1) Sepsis ICD Code: A41.9 - Sepsis, unspecified organism Plan: Likely secondary to C. difficile colitis and pneumonia Continue with Ceftin and with vancomycin (2) Leucocytosis ICD Code: D72.829 - Elevated white blood cell count, unspecified Plan: Resolved (3) Acute renal failure superimposed on stage 2 chronic kidney disease ICD Code: N17.9 - Acute kidney failure, unspecified; N18.2 - Chronic kidney disease, stage 2 (mild) Plan: Likely multifactorial due to prerenal, continue change in antibiotics (4) COPD (chronic obstructive pulmonary disease) ICD Code: J44.9 - Chronic obstructive pulmonary disease Status: Chronic Plan: Patient did fail her walk test and will require oxygen and discharged We'll continue with IV Solu-Medrol, oral steroids twice a day, continue with nebulized bronchodilators. Pulmonary following (5) C. difficile colitis ICD Code: A04.72 - Enterocolitis due to Clostridium difficile, not specified as recurrent Plan: Continue with vancomycin and cholestyramine Discharge Planning Likely discharge home in 1-2 days, will need O2 at home Florina De La Cruz MD Dec 26, 2016 12:27
--- NOTE | 2016-12-26 12:27 | HHI.FF ---
Face to Face Verification Diagnosis: (1) C. difficile colitis (2) COPD (chronic obstructive pulmonary disease) Physical Therapy Order: Evaluate and Treat, Improve ambulation, Strength and gait training Home Health Nursing Order: Signs/symptoms of disease process I have seen patient Maryam Gordon on 12/26/16. My clinical findings support the need for the requested home health care services because: Patient has SOB I certify that my clinical findings support that this patient is homebound because: Hx COPD- exertion dyspnea/weakness Florina De La Cruz MD Dec 26, 2016 12:27
[2016-12-26] MEDS: ACETAMINOPHEN/HYDROcodone 325 MG/10 MG TAB PO PRN (12:43)
--- NOTE | 2016-12-26 20:08 | HHI.PR ---
Subjective Remarks 71 YOWF with COPD exac, Pl eff, basalpn, c'diff colitis No fever Weak, mild sob No CP Breathing little better Objective Vital Signs Vital Signs Date Time Temp Pulse Resp B/P (MAP) Pulse Ox O2 Delivery O2 Flow Rate FiO2 12/26/16 16:00 98.2 80 28 158/79 (105) 97 12/26/16 14:56 96 Nasal Cannula 3.00 12/26/16 13:43 20 12/26/16 12:00 97.7 71 24 170/85 (113) 96 12/26/16 08:00 97.9 72 20 165/86 (112) 99 12/26/16 07:27 93 Nasal Cannula 4.00 12/26/16 07:00 90 Nasal Cannula 4.00 12/26/16 04:31 94 Nasal Cannula 4.00 12/26/16 04:30 Nasal Cannula 4.00 12/26/16 04:00 95 12/26/16 01:31 91 Nasal Cannula 3.00 12/26/16 00:00 97.1 66 18 144/69 (94) 91 12/25/16 21:12 93 Nasal Cannula 2.00 I/O 12/25/16 12/25/16 12/25/16 12/26/16 12/26/16 12/26/16 07:00 15:00 23:00 07:00 15:00 23:00 Intake Total 504 ml 210 ml 770 ml 1410 ml 1480 ml Output Total 500 ml Balance 504 ml 210 ml 270 ml 1410 ml 1480 ml Intake Oral 320 ml 1200 ml 1480 ml IV Total 504 ml 210 ml 450 ml 210 ml Output Urine Total 500 ml # Voids 2 1 3 6 # Bowel Movements 1 1 4 1 4 Result Diagram: 12/26/1647 12/26/1647 Objective Remarks GENERAL: Elderly female, weak, mild sob SKIN: Warm and dry. HEAD: Normocephalic. EYES: No scleral icterus. No injection or drainage. NECK: Supple, trachea midline. No JVD or lymphadenopathy. CARDIOVASCULAR: Regular rate and rhythm without murmurs, gallops, or rubs. RESPIRATORY: Breath sounds equal bilaterally. No accessory muscle use. GASTROINTESTINAL: Abdomen soft, non-tender, nondistended. MUSCULOSKELETAL: No cyanosis, or edema. BACK: Nontender without obvious deformity. No CVA tenderness. A/P Assessment and Plan COPD Exac Basl Pneumonia C. diff colitis Pleural eff, small CAD Nicotine use PLAN: Aerosol nebs Supplement 02 PO Vanco Monitor CBC OOB And ambulate DC PLans underway Jayy Bhakta MD Dec 26, 2016 20:08
[2016-12-26] MEDS: ATORVASTATIN 40 MG TAB PO SCH (20:25)
[2016-12-27] VITALS: BP 167/68; PULSE 66; RESP 18; TEMP 96.5; O2SAT 93
[2016-12-27] MEDS: RESP: ALBUTEROL 2.5 MG/IPRATROPIUM 0.5 MG NEB (PRN) NEB (00:42)
[2016-12-27] MEDS: RESP: ALBUTEROL 2.5 MG/IPRATROPIUM 0.5 MG NEB (SCH) NEB (07:28)
[2016-12-27 07:30] VITALS: O2SAT 92
[2016-12-27 08:00] VITALS: BP 194/91; PULSE 74; RESP 17; TEMP 97.4; O2SAT 93
[2016-12-27] MEDS: ASPIRIN EC 81 MG TABEC PO SCH (08:46)
[2016-12-27] MEDS: METOPROLOL TARTRATE 25 MG TAB PO SCH (08:46)
[2016-12-27] MEDS: SODIUM CHLORIDE 0.9% FLUSH 10 ML FLUSH IV FLUSH SCH (08:46)
[2016-12-27] MEDS: CLOPIDOGREL 75 MG TAB PO SCH (08:47)
[2016-12-27] MEDS: FUROSEMIDE 20 MG TAB PO SCH (08:47)
[2016-12-27] MEDS: FLUoxetine HCL 20 MG CAP PO SCH (08:48)
[2016-12-27] MEDS: POTASSIUM CHLORIDE 20 MEQ CONTROLLED RELEASE TAB PO SCH (08:48)
[2016-12-27] MEDS: predniSONE 20 MG TAB PO SCH (08:48)
[2016-12-27] MEDS: amLODIPine BESYLATE 5 MG TAB PO SCH (08:48)
[2016-12-27] MEDS: VANCOMYCIN 500 MG VIAL (FOR ORAL USE ONLY) PO SCH ×2 (08:49→13:00)
[2016-12-27] MEDS: CHOLESTYRAMINE 4 GM PACKET PO SCH (08:49)
[2016-12-27] MEDS: DOXYCYCLINE HYCLATE 100 MG TAB PO SCH (08:53)
[2016-12-27] MEDS ORDERED: DOXY100T PO (10:20)
[2016-12-27] MEDS ORDERED: VANC500I3 PO (10:20)
[2016-12-27] MEDS ORDERED: CHOL4POW4 PO (10:20)
[2016-12-27] MEDS ORDERED: IPRASOL NEB (10:20)
[2016-12-27 10:21] VITALS: O2SAT 96
[2016-12-27] MEDS ORDERED: NEBULIZER1 MI1 (11:42)
[2016-12-27] MEDS ORDERED: PRED20 PO (11:46)
--- NOTE | 2016-12-27 11:47 | HHI.DS ---
Discharge Summary Admission Date Dec 19, 2016 at 13:57 Discharge Date: Dec 27, 2016 Admitting Diagnosis colitis pain colitis rule out C. difficile, dehydration, decondition (1) Sepsis ICD Code: A41.9 - Sepsis, unspecified organism (2) Leucocytosis ICD Code: D72.829 - Elevated white blood cell count, unspecified (3) Acute renal failure superimposed on stage 2 chronic kidney disease ICD Code: N17.9 - Acute kidney failure, unspecified; N18.2 - Chronic kidney disease, stage 2 (mild) (4) COPD (chronic obstructive pulmonary disease) ICD Code: J44.9 - Chronic obstructive pulmonary disease Status: Chronic (5) C. difficile colitis ICD Code: A04.72 - Enterocolitis due to Clostridium difficile, not specified as recurrent Procedures none Brief History - From Admission Written by Danis Peña, acting as scribe for Dr. Werner on 12/19/16 at 16 :05. 71-year-old female with known history of hypertension, myocardial infarction, coronary artery disease, hyponatremia, unstable angina, chronic affective pulmonary disease, chronic tobacco use who presented to hospital because of nausea, diarrhea, weakness, unable to eat. Patient was recently admitted to the hospital on 12/06/16 and was evaluated and treated for non-ST elevated myocardial infarction. Patient had a complete workup done with seafood fisherman and was discharged to longterm facility on 12/11/16. Patient states that she was prescribed antibiotics for her chronic affective pulmonary disease and she started having diarrhea on the day she was discharged. Patient did go to rehabilitation facility and continued to have diarrhea to include water consistency to soft stool. She states that it was brown in color and had very foul odor. Patient states that she was discharged home from the nursing facility still with significant diarrhea, she is not really ate or drank anything. She states that when she got home she had a piece of toast and a bolus soup on Sunday, she did not eat on Sunday or Sunday. She states that she is only been drinking like light water. Patient states that her diarrhea did not improve so she came to the emergency department for evaluation. Patient had workup done which does show sepsis, dehydration, acute renal failure, adult diarrhea illness. Is recommended by ER physician the patient be admitted for further evaluation and management. Patient denies any abdominal pain. She is had nausea but no vomiting. She has had increased weakness. Denies any hematochezia, melena. CBC/BMP: 12/26/16 0547 12/26/16 0547 Significant Findings Laboratory Tests Test 12/25/16 06:15 12/26/16 05:47 Red Blood Count 3.81 MIL/MM3 (4.00-5.30) 3.99 MIL/MM3 (4.00-5.30) Hemoglobin 10.5 GM/DL (11.6-15.3) 11.1 GM/DL (11.6-15.3) Hematocrit 32.9 % (35.0-46.0) 34.6 % (35.0-46.0) Neutrophils (%) (Auto) 90.7 % (16.0-70.0) 85.2 % (16.0-70.0) Lymphocytes (%) (Auto) 5.3 % (9.0-44.0) Neutrophils # (Auto) 8.7 TH/MM3 (1.8-7.7) Lymphocytes # (Auto) 0.5 TH/MM3 (1.0-4.8) 0.6 TH/MM3 (1.0-4.8) Blood Urea Nitrogen 45 MG/DL (7-18) 41 MG/DL (7-18) Creatinine 1.30 MG/DL (0.50-1.00) 1.20 MG/DL (0.50-1.00) Random Glucose 111 MG/DL (74-106) 110 MG/DL (74-106) Estimat Glomerular Filtration Rate 40 ML/MIN (>89) 44 ML/MIN (>89) Calcium Level 8.4 MG/DL (8.5-10.1) Imaging Last Impressions Chest X-Ray 12/25/16 0000 Signed Impressions: Service Date/Time: Sunday, December 25, 2016 14:37 - CONCLUSION: 1. Cardiomegaly with mild positive fluid balance. Small bilateral pleural effusions and associated lower lobe airspace disease. This has progressed on the right since prior exam. Prasad Brown MD Abdomen/Pelvis CT 12/19/16 0000 Signed Impressions: Service Date/Time: Monday, December 19, 2016 10:10 - CONCLUSION: 1. Mild induration of the fat about the right colon and findings suggestive of diffuse wall thickening in the right colon and transverse colon. This is a nonspecific constellation of findings would raise the possibility of an inflammatory or infectious process. 2. Multiple small sigmoid diverticula without radiographic evidence of diverticulitis. 3. Small bilateral pleural effusions. Guilherme Dumas MD PE at Discharge GENERAL: This is a well-nourished, well-developed patient, in no apparent distress. CARDIOVASCULAR: Regular rate and rhythm without murmurs, gallops, or rubs. RESPIRATORY: Clear to auscultation. Breath sounds equal bilaterally. No wheezes , rales, or rhonchi. GASTROINTESTINAL: Abdomen soft, non-tender, nondistended. Normal active bowel sounds MUSCULOSKELETAL: Extremities without clubbing, cyanosis, or edema. NEURO: Alert & Oriented x4 to person, place, time, situation. Moves all ext x4 Pt update on day of discharge Patient doing well. Respiratory status is improved Patient diarrhea is improved. Discharge plans discussed with patient Hospital Course Patient seen and evaluated in follow-up for shortness of breath related to COPD exacerbation. Patient did well with steroids, bronchodilators and antibiotics. She also was treated for C. difficile colitis which improved. She did develop acute kidney injury which was thought to be related to her initial antibiotics. Antibiotics were changed and renal function improved. Pt Condition on Discharge: Good Discharge Disposition: Disch w/ Home Health Serv Discharge Time: <= 30 minutes Discharge Instructions DIET: Follow Instructions for: As Tolerated, No Restrictions Activities you can perform: Regular-No Restrictions Follow up Referrals: PCP Follow-up - 1 Week New Medications: Nebulizer (Nebulizer) 1 Mis Mis EA .ROUTE DIRECTED for Breathing Treatment, #1 0 Refills Oxygen tank (Oxygen tank) 1 Ea Tank LITER BAKARI.CANULA CONTINUOUS for HYPOXEMIA PREVENTION, #1 Oxygen Concentrator Portable Gaseous 2 L/min via Nasal Cannula Continuous For 99 months npi [id number] Cholestyramine (Cholestyramine) 4 Gm/Pkt Powd 4 GM PO Q12HR for Diarrhea, #60 PACKET 1 packet contains 4 grams of cholestyramine. Doxycycline Hyclate (Doxycycline Hyclate) 100 Mg Tab 100 MG PO BID for Infection, #10 TAB Ipratropium-Albuterol Neb (Duoneb) 0.5-2.5 Mg/3 Ml Neb 1 AMPULE NEB Q6HR WHILE AWAKE NEB for Dyspnea, #93 ML Vancomycin Inj (Vancomycin Inj) 500 Mg Inj 125 MG PO QID for Infection, #28 INJECTION Continued Medications: Albuterol 18 GM Inh (Ventolin Hfa 18 GM Inh) 90 Mcg/Act Aer 2 PUFF INH Q4-6H PRN for SHORTNESS OF BREATH, #1 INHALER 0 Refills Alprazolam (Alprazolam) 0.5 Mg Tab 0.5 MG PO Q8H PRN for ANXIETY, TAB 0 Refills Amlodipine (Amlodipine) 5 Mg Tab 5 MG PO BID for Blood Pressure Management, #30 TAB [address] (Adult Aspirin EC Low Strength) 81 Mg Tabec 81 MG PO DAILY for Prevent Blood Clot, #30 TAB 3 Refills Atorvastatin (Atorvastatin) 80 Mg Tab 80 MG PO HS for Cholesterol Management, #30 TAB 0 Refills Clopidogrel (Clopidogrel) 75 Mg Tab 75 MG PO DAILY for Blood Clot Prevention, #30 TAB 0 Refills Fluoxetine (Prozac) 20 Mg Cap 20 MG PO BID, #30 CAP 0 Refills Furosemide (Furosemide) 20 Mg Tab 20 MG PO BID@09,18 for Prevent Heart Failure, #60 TAB 11 Refills Hydrocodone-Acetaminophen (Hydrocodone-Acetaminophen) 5-325 mg Tab 1 TAB PO Q6H PRN for PAIN 1-10, #10 TAB Ipratropium-Albuterol Inh (Combivent Respimat Inh) 20-100 Retirement/Act Aero 1 PUFF INH BID for Broncospasm, #1 INHALER 0 Refills Isosorbide Mononitrate ER (Isosorbide Mononitrate ER) 30 Mg Liza 30 MG PO DAILY for Prevent Chest Pain, #30 TAB 0 Refills Metoprolol Tartrate (Metoprolol Tartrate) 75 Mg Tab 75 MG PO BID, #60 TAB 0 Refills Potassium Chloride ER (Potassium Chloride ER) 20 Meq Tab 20 MEQ PO DAILY for Electrolyte Replacement, #30 TAB 0 Refills Prednisone (Prednisone) 20 Mg Tab 20 MG PO DAILY@0800 for copd, #4 TAB (This prescription has been renewed) Temazepam (Restoril) 15 Mg Cap 15 MG PO HS PRN for INSOMNIA, #10 CAP Discontinued Medications: Loperamide HCl (Hm Loperamide HCl) 2 Mg Cap 2 MG PO UNSCH PRN for DIARRHEA, #10 Florina Hinojosa MD Dec 27, 2016 11:47
== END 2016-12-27 13:29 | disposition home health service (06) | DRG 871 ==
LOC: PHED 09:18 → PHEDA 13:57 → PH3B 15:53
PROVIDERS: ADMIT Hospitalist; ATTEND Hospitalist
DX: A41.9 Sepsis, unspecified organism (principal); I21.4 Non-ST elevation (NSTEMI) myocardial infarction; N17.9 Acute kidney failure, unspecified; A04.72 Enterocolitis due to Clostridium difficile, not specified as recurrent; J18.9 Pneumonia, unspecified organism; I42.9 Cardiomyopathy, unspecified; E86.0 Dehydration; E87.1 Hypo-osmolality and hyponatremia; J44.1 Chronic obstructive pulmonary disease with (acute) exacerbation; I25.110 Atherosclerotic heart disease of native coronary artery with unstable angina pectoris; I25.2 Old myocardial infarction; Z95.5 Presence of coronary angioplasty implant and graft; Z95.1 Presence of aortocoronary bypass graft; E78.5 Hyperlipidemia, unspecified; F17.210 Nicotine dependence, cigarettes, uncomplicated; F32.9 Major depressive disorder, single episode, unspecified; Z98.84 Bariatric surgery status; I12.9 Hypertensive chronic kidney disease with stage 1 through stage 4 chronic kidney disease, or unspecified chronic kidney disease; N18.2 Chronic kidney disease, stage 2 (mild); Y95 Nosocomial condition
CPT/HCPCS: 71010; 74176; 80048; 80053; 81001; 83605; 83690; 83735; 85025; 85027; 87040; 87493; 87506; 93005; 94150; 94620; 94640; 94664; 96361; 96365; 96375; J0744; J1940; J1956; J2270; J2405; J2920; J3480; J7030; J7512

== ENCOUNTER 2017-01-01 15:34 | Inpatient (IN) | payer OTHER, MEDICAID, MEDICARE ==
[~2017-01-01] VITALS: Ht 160 cm; Wt 68.9 kg
[2017-01-01] VITALS (10 sets, daily range): BP systolic 139–177; BP diastolic 63–79; PULSE 64–78; RESP 15–23; O2SAT 92–100
[~2017-01-01 15:34] MED LIST changes: -ALPR.5 PO; +ALPR0.5T3 PO; -ASPI-99 PO; +ASPI1TAB56 PO; -ATOR1TAB18 PO; +ATOR80TA45 PO; -AZIT250T3 PO; +CHOL4POW4 PO; -COZA50TA PO; +DOXY100T PO; +IPRASOL NEB; -LOPE2CAP92 PO; +METO-426 PO; -METO50TA PO; +NEBULIZER1 MI1; +OXYGENTANK NAS.CANULA; -SPIRCAP INH; +VANC500I3 PO
[2017-01-01 16:06] LABS: BLOOD GAS BASE EXCESS 6.3 mmol/L (-2-2); BLOOD GAS CARBOXYHEMOGLOBIN 1.5 % (0-4); BLOOD GAS HCO3 30 mmol/L (22-26); BLOOD GAS METHEMOGLOBIN 0.6 % (0-2); BLOOD GAS O2 HGB SATURATION 96 % (90-100); BLOOD GAS OXYGEN CONTENT 13.8 Vol % (12.0-20.0); BLOOD GAS PCO2 44 mmHg (38-42); BLOOD GAS PO2 113 mmHG (61-120); BLOOD GAS TOTAL HGB 10.1 G/DL (12.0-16.0); TEMP CORR TO 98.6
[2017-01-01 16:07] LABS: CRITICAL VALUE NO; FIO2 50 %; OXYGEN DEVICE VENTILATOR; VENT SETTINGS NPPV
[2017-01-01 16:08] LABS: DRAW SITE RT RADIAL; NUMBER OF ARTERIAL PUNCTURES 1; STAT NO; ULNAR PULSE PRESENT
--- NOTE | 2017-01-01 16:38 | PD ---
HPI Chief Complaint: Respiratory Distress Time Seen by Provider: 16:30 Travel History International Travel<30 days: No Contact w/Intl Traveler<30days: No Traveled to known affect area: No History of Present Illness HPI 71 year-old female history of CHF, COPD, presents today with points of shortness of breath. Patient was apparently having respiratory distress and called [facility]. When [facility] arrived, they found her sats to be in the low 80s. They started her on BiPAP and transferred here here. Patient also complained of chest tightness. On BiPAP, her sats went up to the 90s. The patient denies any chest pain, chest pressure. She does report that she's had increased swelling of her hands or feet. She took her own nitroglycerin at home as well as did a breathing treatment. No other complaints the time of my examination. PFSH Past Medical History Hx Anticoagulant Therapy: Yes Arthritis: Yes Asthma: Yes Autoimmune Disease: No Blood Disorders: No Anxiety: Yes Depression: Yes (sees grief therapist) Heart Rhythm Problems: No Cancer: No Cardiac Catheterization: Yes Cardiovascular Problems: Yes High Cholesterol: Yes Chemotherapy: No Chest Pain: No Congestive Heart Failure: No COPD: Yes Cerebrovascular Accident: No Coronary Artery Disease: Yes Developmental Delay: No Diabetes: No Diminished Hearing: Yes ([place] both ears) Endocrine: Yes Gastrointestinal Disorders: Yes (LAP BAND) GERD: Yes Genitourinary: No Headaches: Yes Hepatitis: No Hiatal Hernia: No Hypertension: Yes Immune Disorder: No Implanted Vascular Access Dvce: Yes Kidney Stones: No Musculoskeletal: No Neurologic: No Psychiatric: No Reproductive: No Respiratory: Yes Immunizations Current: Yes Migraines: Yes Myocardial Infarction: Yes ( 2005,2016) Renal Failure: No Seizures: No Sickle Cell Disease: No Sleep Apnea: No Thyroid Disease: No Triglycerides - High: Yes Ulcer: No PNEUMOCCOCAL Vaccine (Year): 3 Menopausal: Yes Past Surgical History Abdominal Surgery: No AICD: No Appendectomy: Yes Arteriovenous Shunt: No Body Medical Devices: lap band port Cardiac Surgery: Yes Cholecystectomy: No Coronary Artery Bypass Graft: Yes Coronary Stent: Yes (11 STENTS) Ear Surgery: No Endocrine Surgery: No Eye Surgery: No Genitourinary Surgery: No Gynecologic Surgery: No Hysterectomy: Yes Insulin Pump: No Joint Replacement: No Neurologic Surgery: No Oral Surgery: No Pacemaker: No Thoracic Surgery: Yes Other Surgery: Yes (LEFT BREAST LUMPECTOMY) Family History Family Myocardial Infarction: Yes Social History Alcohol Use: No Tobacco Use: No (QUIT 2 WEEK AGO PER PT) Substance Use: No Allergies-Medications (Allergen,Severity, Reaction): Coded Allergies: lisinopril (Unverified Allergy, Severe, Cough, 01/01/17) PERSISTENT COUGH losartan (Verified Allergy, Severe, Hives, 01/01/17) codeine (Unverified Allergy, Mild, NAUSEA, 01/01/17) PATIENT STATES SHE IS NOT ALLERGIC TO MEDICATION cephalexin (Unverified Allergy, Unknown, Nausea/Vomiting, 01/01/17) fluticasone (Unverified Allergy, Unknown, 01/01/17) THROAT SWELLING fluticasone furoate (Unverified Allergy, Unknown, 01/01/17) THROAT SWELLING salmeterol (Unverified Allergy, Unknown, 01/01/17) THROAT SWELLING azithromycin (Verified Adverse Reaction, Intermediate, DIARRHEA, 01/01/17) Reported Meds & Prescriptions Reported Meds & Active Scripts Active Prednisone 20 Mg Tab 20 Mg PO DAILY@0800 Nebulizer 1 Mis Mis Ea .ROUTE DIRECTED Cholestyramine 4 Gm/Pkt Powd 4 Gm PO Q12HR 1 packet contains 4 grams of cholestyramine. Duoneb (Ipratropium-Albuterol Neb) 0.5-2.5 Mg/3 Ml Neb 1 Ampule NEB Q6HR WHILE AWAKE NEB Vancomycin Inj (Vancomycin HCl) 500 Mg Inj 125 Mg PO QID Doxycycline Hyclate 100 Mg Tab 100 Mg PO BID Oxygen tank (Oxygen) 1 Ea Tank Liter BAKARI.CANULA CONTINUOUS Oxygen Concentrator Portable Gaseous 2 L/min via Nasal Cannula Continuous For 99 months npi [id number] Furosemide 20 Mg Tab 20 Mg PO BID@,18 Restoril (Temazepam) 15 Mg Cap 15 Mg PO HS PRN Hydrocodone-Acetaminophen 5-325 mg Tab 1 Tab PO Q6H PRN Adult Aspirin EC Low Strength (Aspirin) 81 Mg Tabec 81 Mg PO DAILY Potassium Chloride ER (Potassium Chloride) 20 Meq Tab 20 Meq PO DAILY Reported Alprazolam 0.5 Mg Tab 0.5 Mg PO Q8H PRN Metoprolol Tartrate 75 Mg Tab 75 Mg PO BID Prozac (Fluoxetine HCl) 20 Mg Cap 20 Mg PO BID Combivent Respimat Inh (Ipratropium-Albuterol Inh) 20-100 Jail/Act Aero 1 Puff INH BID Ventolin Hfa 18 GM Inh (Albuterol Sulfate) 90 Mcg/Act Aer 2 Puff INH Q4-6H PRN Atorvastatin (Atorvastatin Calcium) 80 Mg Tab 80 Mg PO HS Amlodipine (Amlodipine Besylate) 5 Mg Tab 5 Mg PO BID Isosorbide Mononitrate ER (Isosorbide Mononitrate) 30 Mg Liza 30 Mg PO DAILY Clopidogrel (Clopidogrel Bisulfate) 75 Mg Tab 75 Mg PO DAILY Review of Systems Except as stated in HPI: all other systems reviewed are Neg General / Constitutional: No: Fever, Chills HENT: No: Headaches, Lightheadedness Cardiovascular: Positive: Chest Pain or Discomfort (positive chest tightness), No: Palpitations Respiratory: Positive: Cough, Shortness of Breath Gastrointestinal: No: Nausea, Vomiting, Abdominal Pain Genitourinary: No: Dysuria, Decreased Urinary Output Musculoskeletal: Positive: Edema (upper and lower extremities), No: Weakness, Pain Skin: No Rash, No Lesions Neurologic: No: Weakness, Dizziness, Syncope, Headache, Change in Mentation Physical Exam Narrative GENERAL: Well-developed well-nourished female in moderate to severe rest her distress. The patient is on CPAP when she arrived. SKIN: Focused skin assessment warm/dry. HEAD: Atraumatic. Normocephalic. EYES: . No scleral icterus. No injection or drainage. ENT: No nasal bleeding or discharge. Mucous membranes pink and moist. NECK: Trachea midline. Supple.. CARDIOVASCULAR: Regular rate and rhythm in the 80s. No murmur appreciated. RESPIRATORY: Positive accessory muscle use. Fine Rales heard at the bilateral bases. GASTROINTESTINAL: Abdomen soft, non-tender, nondistended. MUSCULOSKELETAL: No obvious deformities. 2+ pretibial pitting edema. NEUROLOGICAL: Awake and alert. No obvious cranial nerve deficits. Motor grossly within normal limits. Normal speech. PSYCHIATRIC: Appropriate mood and affect; insight and judgment normal. Data Data Last Documented VS Vital Signs Date Time Temp Pulse Resp B/P (MAP) Pulse Ox O2 Delivery O2 Flow Rate FiO2 01/01/17 16:33 99 CPAP 50 01/01/17 15:45 76 23 171/74 (106) Orders Orders Arterial Blood Gas (Abg) (01/01/17 15:45) Basic Metabolic Panel (Bmp) (01/01/17 16:31) B-Type Natriuretic Peptide (01/01/17 16:31) Ckmb (Isoenzyme) Profile (01/01/17 16:31) Complete Blood Count With Diff (01/01/17 16:31) Magnesium (Mg) (01/01/17 16:31) Prothrombin Time / Inr (Pt) (01/01/17 16:31) Act Partial Throm Time (Ptt) (01/01/17 16:31) Troponin I (01/01/17 16:31) Chest, Single Ap (01/01/17 16:31) Ecg Monitoring (01/01/17 16:) Bilateral Bp Monitoring (01/01/17 16:) Iv Access Insert/Monitor (01/01/17 16) Oximetry (01/01/17 16:) Oxygen Administration (01/01/17 16:) Sodium Chloride 0.9% Flush (Ns Flush) (01/01/17 16:45) Electrocardiogram (01/01/17 15:46) Admit To Inpatient (01/01/17 ) Vital Signs (Adult) Q4H (01/01/17 18:19) Activity Oob With Assistance (01/01/17 18:19) Apparatus Operator / Telemetry .CONTINUOUS (01/01/17 18:) Intake + Output VIVIAN.QSHIFT (01/01/17 18:19) Diet Heart Healthy (01/01/17 Dinner) Sodium Chloride 0.9% Flush (Ns Flush) (01/01/17 18:30) Sodium Chloride 0.9% Flush (Ns Flush) (01/01/17 21:00) Basic Metabolic Panel (Bmp) (01/02/17 06:00) Complete Blood Count With Diff (01/02/17 06:00) Creatine Kinase (Cpk) (01/01/17 22:45) Creatine Kinase (Cpk) (01/02/17 04:45) Troponin I (01/01/17 22:45) Troponin I (01/02/17 04:45) Electrocardiogram (01/01/17 22:45) Electrocardiogram (01/02/17 04:45) Pt Request For Service (01/01/17 18:19) Furosemide Inj (Lasix Inj) (01/01/17 18:30) Case Management Consult (01/01/17 18:19) Naloxone Inj (Narcan Inj) (01/01/17 18:30) Inpatient Certification (01/01/17 ) Furosemide Inj (Lasix Inj) (01/02/17 09:00) Echo 2d Comp With Doppler (01/01/17 ) Consult Cardiology (01/01/17 ) Admit Order (Ed Use Only) (01/01/17 18:27) Labs Laboratory Tests Test 01/01/17 15:45 01/01/17 16:35 Blood Gas Puncture Site RT RADIAL Blood Gas Patient Temperature 98.6 Blood Gas HCO3 30 mmol/L Blood Gas Base Excess 6.3 mmol/L Blood Gas Oxygen Saturation 96 % Arterial Blood pH 7.45 Arterial Blood Partial Pressure CO2 44 mmHg Arterial Blood Partial Pressure O2 113 mmHG Arterial Blood Oxygen Content 13.8 Vol % Arterial Blood Carboxyhemoglobin 1.5 % Arterial Blood Methemoglobin 0.6 % Blood Gas Hemoglobin 10.1 G/DL Oxygen Delivery Device VENTILATOR Blood Gas Ventilator Setting NPPV Blood Gas Inspired Oxygen 50 % White Blood Count 8.8 TH/MM3 Red Blood Count 3.59 MIL/MM3 Hemoglobin 10.4 GM/DL Hematocrit 32.2 % Mean Corpuscular Volume 89.6 FL Mean Corpuscular Hemoglobin 28.9 PG Mean Corpuscular Hemoglobin Concent 32.3 % Red Cell Distribution Width 16.3 % Platelet Count 186 TH/MM3 Mean Platelet Volume 9.5 FL Neutrophils (%) (Auto) 84.8 % Lymphocytes (%) (Auto) 8.3 % Monocytes (%) (Auto) 6.2 % Eosinophils (%) (Auto) 0.6 % Basophils (%) (Auto) 0.1 % Neutrophils # (Auto) 7.5 TH/MM3 Lymphocytes # (Auto) 0.7 TH/MM3 Monocytes # (Auto) 0.5 TH/MM3 Eosinophils # (Auto) 0.1 TH/MM3 Basophils # (Auto) 0.0 TH/MM3 CBC Comment DIFF FINAL Differential Comment Prothrombin Time 11.9 SEC Prothromb Time International Ratio 1.1 RATIO Activated Partial Thromboplast Time 23.2 SEC Blood Urea Nitrogen 16 MG/DL Creatinine 0.99 MG/DL Random Glucose 93 MG/DL Calcium Level 8.1 MG/DL Magnesium Level 1.9 MG/DL Sodium Level 140 MEQ/L Potassium Level 3.3 MEQ/L Chloride Level 101 MEQ/L Carbon Dioxide Level 32.1 MEQ/L Anion Gap 7 MEQ/L Estimat Glomerular Filtration Rate 55 ML/MIN Total Creatine Kinase 34 U/L Troponin I 0.22 NG/ML B-Type Natriuretic Peptide 4907 PG/ML MDM Medical Decision Making Medical Screen Exam Complete: Yes Emergency Medical Condition: Yes Differential Diagnosis CHF versus COPD versus ACS versus fluid overload Narrative Course 71-year-old female history of COPD, CHF, presents here with shortness of breath. The patient reports increased swelling of her hands and her legs. The patient has CHF on chest x-ray. The patient also has a BNP of 4900. She's been given Lasix 40 mg I V times one dose. We will wean her off the BiPAP that she was placed on here. Her troponin was 0.22. I believe this is likely secondary to her CHF. She has no chest pain, chest pressure. [facility] placement at this time. Diagnosis Primary Impression: CHF exacerbation Additional Impressions: Dyspnea Elevated troponin Admitting Information Admitting Physician Requests: Observation Ramon Gan MD Jan 01, 2017 16:38
[2017-01-01] MEDS ORDERED: SODIUM CHLORIDE 0.9% FLUSH 10 ML FLUSH IVF PRN (16:45)
[2017-01-01 16:48] LABS: AUTOMATED NEUTROPHIL # 7.5 TH/MM3 (1.8-7.7); BASOPHIL % 0.1 % (0.0-2.0); EOSINOPHIL # 0.1 TH/MM3 (0-0.4); EOSINOPHIL % 0.6 % (0.0-4.0); HEMATOCRIT 32.2 % (35.0-46.0); HEMO FLAGS DIFF FINAL; LYMPH % 8.3 % (9.0-44.0); LYMPHOCYTE # 0.7 TH/MM3 (1.0-4.8); MEAN CELL VOLUME 89.6 FL (80.0-100.0); MEAN CORPUSCULAR HEMOGLOBIN 28.9 PG (27.0-34.0); MEAN CORPUSCULAR HGB CONC 32.3 % (32.0-36.0); MONO % 6.2 % (0.0-8.0); NEUT % 84.8 % (16.0-70.0); PLATELET COUNT 186 TH/MM3 (150-450); RED BLOOD COUNT 3.59 MIL/MM3 (4.00-5.30); RED CELL DISTRIBUTION WIDTH 16.3 % (11.6-17.2); WHITE BLOOD COUNT 8.8 TH/MM3 (4.0-11.0)
[2017-01-01 17:18] LABS: BICARBONATE 32.1 MEQ/L (21.0-32.0); MAGNESIUM 1.9 MG/DL (1.5-2.5); POTASSIUM 3.3 MEQ/L (3.5-5.1)
--- NOTE | 2017-01-01 17:40 | RADRPT ---
EXAM DATE/TIME: 01/01/2017 16:39 [facility] COMPARISON: CHEST SINGLE AP, December 25, 2016, 14:37. INDICATIONS : Short of breath. MEDICAL HISTORY : Myocardial infarction. SURGICAL HISTORY : CABG. Coronary artery stent. ENCOUNTER: Initial ACUITY: 2 days PAIN SCORE: 2/10 LOCATION: Bilateral chest FINDINGS: Sternal wires and bypass are noted. The heart is enlarged. [id number] congestive failure is e vident. Small bilateral pleural effusions larger on the right than the left. The right occupies one quarter of the right hemithorax. CONCLUSION: Moderate congestive failure with bilateral pleural effusions larger on the right progressed in the in terval. Bayron Jimenez MD FACR on January 01, 2017 at 17:36 Board Certified Radiologist. This report was verified electronically.
[2017-01-01 17:45] LABS: APTT (PATIENT) 23.2 SEC (24.3-30.1); INTERNATIONAL NORMALIZED RATIO 1.1 RATIO; PROTHROMBIN TIME - PATIENT 11.9 SEC (9.8-11.6)
[2017-01-01] MEDS ORDERED: SODIUM CHLORIDE 0.9% FLUSH 10 ML FLUSH IV FLUSH PRN (18:30)
[2017-01-01] MEDS ORDERED: FUROSEMIDE 40 MG/4 ML VIAL IV PUSH ONE (18:30)
[2017-01-01] MEDS ORDERED: NALOXONE HCL 0.4 MG/ML AMP IV PUSH PRN (18:30)
--- NOTE | 2017-01-01 19:03 | HHI.HP ---
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 no 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 in stool or urine ;has recent of cdiff on plavix on home oxygen for copd recent hospital discharge had brunign or pain urination acute distress during interview Review of Systems Except as stated in HPI: all other systems reviewed are Neg Past Family Social History Past Medical History CAD status post previous OH with prior CABG and cardiac stent implants 11 COPD with ongoing tobaccoism- ON HOME OXYGEN Hypertension Dyslipidemia Depression Past Surgical History CABG 5 vessels Cardiac stent implant 11 LAP-BAND surgery Hysterectomy Bladder suspension surgery Benign breast lumpectomy Allergies: Coded Allergies: lisinopril (Unverified Allergy, Severe, Cough, 01/01/17) PERSISTENT COUGH losartan (Verified Allergy, Severe, Hives, 01/01/17) codeine (Unverified Allergy, Mild, NAUSEA, 01/01/17) PATIENT STATES SHE IS NOT ALLERGIC TO MEDICATION cephalexin (Unverified Allergy, Unknown, Nausea/Vomiting, 01/01/17) fluticasone (Unverified Allergy, Unknown, 01/01/17) THROAT SWELLING fluticasone furoate (Unverified Allergy, Unknown, 01/01/17) THROAT SWELLING salmeterol (Unverified Allergy, Unknown, 01/01/17) THROAT SWELLING azithromycin (Verified Adverse Reaction, Intermediate, DIARRHEA, 01/01/17) Family History mom - cad , copd father- cad Social History quit smoking a month ago no etoh or drugs lives by self, sister is downstairs has not driven past one month Physical Exam Vital Signs Vital Signs Date Time Temp Pulse Resp B/P (MAP) Pulse Ox O2 Delivery O2 Flow Rate FiO2 01/01/17 16:33 99 CPAP 50 01/01/17 15:45 76 23 171/74 (106) 99 CPAP 50 01/01/17 15:45 74 23 100 CPAP 50 01/01/17 15:40 99 50 01/01/17 15:39 78 23 171/74 (106) 99 Physical Exam GENERAL: This is a well-nourished, well-developed patient, in no apparent distress. SKIN: No rashes, ecchymoses or lesions. Cool and dry. HEAD: Atraumatic. Normocephalic. No temporal or scalp tenderness. EYES: No scleral icterus. No injection or drainage. ENT: Nose without bleeding, purulent drainage or septal hematoma. Airway patent. NECK: Trachea midline. No JVD CARDIOVASCULAR: Regular rate and rhythm without murmurs, gallops, or rubs. RESPIRATORY:bilaterally decreased air entry, tight air entry GASTROINTESTINAL: Abdomen soft, non-tender, nondistended. No guarding. MUSCULOSKELETAL: Extremities without clubbing, cyanosis, or edema. No calf tenderness. NEUROLOGICAL: Awake and alert. Motor and sensory grossly within normal limits. Normal speech. Laboratory Laboratory Tests Test 01/01/17 15:45 01/01/17 16:35 Blood Gas Puncture Site RT RADIAL Blood Gas Patient Temperature 98.6 Blood Gas HCO3 30 Blood Gas Base Excess 6.3 Blood Gas Oxygen Saturation 96 Arterial Blood pH 7.45 Arterial Blood Partial Pressure CO2 44 Arterial Blood Partial Pressure O2 113 Arterial Blood Oxygen Content 13.8 Arterial Blood Carboxyhemoglobin 1.5 Arterial Blood Methemoglobin 0.6 Blood Gas Hemoglobin 10.1 Oxygen Delivery Device VENTILATOR Blood Gas Ventilator Setting NPPV Blood Gas Inspired Oxygen 50 White Blood Count 8.8 Red Blood Count 3.59 Hemoglobin 10.4 Hematocrit 32.2 Mean Corpuscular Volume 89.6 Mean Corpuscular Hemoglobin 28.9 Mean Corpuscular Hemoglobin Concent 32.3 Red Cell Distribution Width 16.3 Platelet Count 186 Mean Platelet Volume 9.5 Neutrophils (%) (Auto) 84.8 Lymphocytes (%) (Auto) 8.3 Monocytes (%) (Auto) 6.2 Eosinophils (%) (Auto) 0.6 Basophils (%) (Auto) 0.1 Neutrophils # (Auto) 7.5 Lymphocytes # (Auto) 0.7 Monocytes # (Auto) 0.5 Eosinophils # (Auto) 0.1 Basophils # (Auto) 0.0 CBC Comment DIFF FINAL Differential Comment Prothrombin Time 11.9 Prothromb Time International Ratio 1.1 Activated Partial Thromboplast Time 23.2 Blood Urea Nitrogen 16 Creatinine 0.99 Random Glucose 93 Calcium Level 8.1 Magnesium Level 1.9 Sodium Level 140 Potassium Level 3.3 Chloride Level 101 Carbon Dioxide Level 32.1 Anion Gap 7 Estimat Glomerular Filtration Rate 55 Total Creatine Kinase 34 Troponin I 0.22 B-Type Natriuretic Peptide 4907 Result Diagram: 01/01/17 1635 01/01/17 1635 Imaging cxr- personally reviewed, bilateral pleural effusions R>L Caprini VTE Risk Assessment Caprini VTE Risk Assessment: Mod/High Risk (score >= 2) Caprini Risk Assessment Model Point Value = 1 Point Value = 2 Point Value = 3 Point Value = 5 Age 41-60 Minor surgery BMI > 25 kg/m2 Swollen legs Varicose veins or History of unexplained or recurrent spontaneous Oral contraceptives or hormone replacement Sepsis (< 1 month) Serious lung disease, including pneumonia (< 1 month) Abnormal pulmonary function Acute myocardial infarction Congestive heart failure (< 1 month) History of inflammatory bowel disease Medical patient at bed rest Age 61-74 Arthroscopic surgery Major open surgery (> 45 min) Laparoscopic surgery (> 45 min) Malignancy Confined to bed (> 72 hours) Immobilizing plaster cast Central venous access Age >= 75 History of VTE Family history of VTE Factor V Leiden Prothrombin [id number] Lupus anticoagulant Anticardiolipin antibodies Elevated serum homocysteine Heparin-induced thrombocytopenia Other congenital or acquired thrombophilia Stroke (< 1 month) Elective arthroplasty Hip, pelvis, or leg fracture Acute spinal cord injury (< 1 month) Prophylaxis Regimen Total Risk Factor Score Risk Level Prophylaxis Regimen 0-1 Low Early ambulation 2 Moderate Order ONE of the following: *Sequential Compression Device (SCD) *Heparin 5000 units SQ BID 3-4 Higher Order ONE of the following medications: *Heparin 5000 units SQ TID *Enoxaparin/Lovenox 40 mg SQ daily (WT < 150 kg, CrCl > 30 mL/min) *Enoxaparin/Lovenox 30 mg SQ daily (WT < 150 kg, CrCl > 10-29 mL/min) *Enoxaparin/Lovenox 30 mg SQ BID (WT < 150 kg, CrCl > 30 mL/min) AND/OR *Sequential Compression Device (SCD) 5 or more Highest Order ONE of the following medications: *Heparin 5000 units SQ TID (Preferred with Epidurals) *Enoxaparin/Lovenox 40 mg SQ daily (WT < 150 kg, CrCl > 30 mL/min) *Enoxaparin/Lovenox 30 mg SQ daily (WT < 150 kg, CrCl > 10-29 mL/min) *Enoxaparin/Lovenox 30 mg SQ BID (WT < 150 kg, CrCl > 30 mL/min) AND *Sequential Compression Device (SCD) Assessment and Plan Assessment and Plan Impression: ACUTE ON CHRONIC CHF recent hospitalizations nstemi/ trop elevation from dyspnea r/o PE with recent hospitlaization CAD status post previous OH with prior CABG and cardiac stent implants 11 COPD with ongoing tobaccoism- ON HOME OXYGEN Hypertension Dyslipidemia Depression Plan: bipap tonight lasix 40mg iv bid admit to cic close montioring nebs prn serial enz and ekg cardio consult echo in am lovenox therapeutic dose VQ / CT pulm angio when resp status is stable- now no diagnostic test may need thoracocentesis if no improvement with diuresis dvt prophylaxis on lovenox Discussed Condition With patient, ER MD , nursing staff Physician Certification 2 Midnight Certification Type: Admission for Inpatient Services Order for Inpatient Services The services are ordered in accordance with Medicare regulations or non- Medicare payer requirements, as applicable. In the case of services not specified as inpatient-only, they are appropriately provided as inpatient services in accordance with the 2-midnight benchmark. Estimated LOS (days): 2 days is the estimated time the patient will need to remain in the hospital, assuming treatment plan goals are met and no additional complications. Post-Hospital Plan: Home Carmen Aviles MD Jan 01, 2017 19:03
[2017-01-01] MEDS: ATORVASTATIN 80 MG TAB PO SCH (21:00)
[2017-01-01] MEDS: SODIUM CHLORIDE 0.9% FLUSH 10 ML FLUSH IV FLUSH SCH (21:00)
[2017-01-01] MEDS: RESP: ALBUTEROL 2.5 MG/IPRATROPIUM 0.5 MG NEB (SCH) NEB ×2 (21:23)
[2017-01-01] MEDS: ENOXAPARIN SODIUM 80 MG/0.8 ML SYRINGE SQ SCH (21:32)
[2017-01-01] MEDS: DOXYCYCLINE HYCLATE 100 MG TAB PO SCH (21:33)
[2017-01-01] MEDS: METOPROLOL TARTRATE 25 MG TAB PO SCH (21:33)
[2017-01-01] MEDS: amLODIPine BESYLATE 5 MG TAB PO SCH (21:33)
[2017-01-02] VITALS (25 sets, daily range): BP systolic 138–184; BP diastolic 60–86; PULSE 60–121; RESP 16–22; TEMP 98–98.4; O2SAT 91–98
[2017-01-02] MEDS: RESP: ALBUTEROL 2.5 MG/IPRATROPIUM 0.5 MG NEB (SCH) NEB ×6 (03:12→19:51)
[2017-01-02 06:11] LABS: AUTOMATED NEUTROPHIL # 5.5 TH/MM3 (1.8-7.7); BASOPHIL % 0.1 % (0.0-2.0); EOSINOPHIL % 0.7 % (0.0-4.0); HEMATOCRIT 29.2 % (35.0-46.0); HEMO FLAGS DIFF FINAL; LYMPH % 9.1 % (9.0-44.0); LYMPHOCYTE # 0.6 TH/MM3 (1.0-4.8); MEAN CELL VOLUME 88.5 FL (80.0-100.0); MEAN CORPUSCULAR HGB CONC 33.9 % (32.0-36.0); MONO % 5.6 % (0.0-8.0); NEUT % 84.5 % (16.0-70.0); PLATELET COUNT 141 TH/MM3 (150-450); RED CELL DISTRIBUTION WIDTH 16.1 % (11.6-17.2); WHITE BLOOD COUNT 6.5 TH/MM3 (4.0-11.0)
[2017-01-02 06:38] LABS: BICARBONATE 32.1 MEQ/L (21.0-32.0); POTASSIUM 3.1 MEQ/L (3.5-5.1)
[2017-01-02] MEDS: DOXYCYCLINE HYCLATE 100 MG TAB PO SCH ×2 (09:00→23:34)
[2017-01-02] MEDS: TIOTROPIUM BROMIDE 18 MCG INH INH SCH (09:00)
[2017-01-02] MEDS: CHOLESTYRAMINE 4 GM PACKET PO SCH ×3 (09:00→21:00)
[2017-01-02] MEDS ORDERED: POTASSIUM CHLORIDE 20 MEQ CONTROLLED RELEASE TAB PO SCH ×2 (09:00→21:00)
[2017-01-02] MEDS: FUROSEMIDE 40 MG/4 ML VIAL IV PUSH SCH ×2 (09:00→18:00)
[2017-01-02] MEDS ORDERED: POTASSIUM CHLORIDE 20 MEQ CONTROLLED RELEASE TAB PO ONE ×2 (09:30→13:30)
[2017-01-02] MEDS: ENOXAPARIN SODIUM 80 MG/0.8 ML SYRINGE SQ SCH ×2 (09:48→23:37)
[2017-01-02] MEDS: SODIUM CHLORIDE 0.9% FLUSH 10 ML FLUSH IV FLUSH SCH ×2 (09:48→23:34)
[2017-01-02] MEDS: amLODIPine BESYLATE 5 MG TAB PO SCH ×2 (09:48→23:34)
[2017-01-02] MEDS: CLOPIDOGREL 75 MG TAB PO SCH (09:49)
[2017-01-02] MEDS: METOPROLOL TARTRATE 25 MG TAB PO SCH ×2 (09:50→23:33)
[2017-01-02] MEDS: ISOSORBIDE MONONITRATE 30 MG TAB PO SCH (09:50)
[2017-01-02] MEDS: ASPIRIN EC 81 MG TABEC PO SCH (09:50)
[2017-01-02] MEDS: FLUoxetine HCL 20 MG CAP PO SCH ×2 (09:50→23:33)
--- NOTE | 2017-01-02 09:55 | MB ---
cc: RADHA YEBOAH M.D. DATE OF CONSULTATION 01/02/2017 REASON FOR CONSULTATION Evaluation of CHF and elevated troponins HISTORY OF PRESENT ILLNESS Maryam Gordon is a 71-year-old female followed by my colleague, Dr. Valentine. The patient is known to have heart disease. She has ischemic heart disease and had bypass surgery in 2005. Her last catheterization was performed September 29, 2012. She has had multiple stents before. Her left anterior descending artery was occluded, but had a patent left internal mammary graft. There is a vein graft to a diagonal branch which demonstrates diffuse distal disease. The circumflex artery has a patent proximal stent and occlusion of a tiny obtuse marginal branch. The right coronary artery has had multiple stents. She had stent in the right coronary placed September 23 and this thrombosed September 29 and required repeat stenting with a 22 mm Integrity stent. That was her last cath. She has COPD and continued smoking up until four weeks ago. She came in because of increasing shortness of breath, sat in the 80s and lower extremity edema that has been coming on for at least a few days. She has been started on IV diuretics. At the time I am seeing her, she is wearing a BiPAP mask. Her speech is somewhat difficult to understand. She has had some chest discomfort on the left lateral chest. The description was vague at this point and the communication was difficult because of the C-PAP mask. She is on prednisone. Her Metoprolol at home she was taking was 50 b.i.d., although the chart here says 75 b.i.d. She was taking Lasix 20 mg three to four times a week. The last few days, she upped it to 20 b.i.d. but has not noticed much response from the 20 mg of Lasix. She has had no syncope. Her edema she says is markedly better since she was admitted to the hospital. PAST MEDICAL HISTORY Includes: 1. Bilateral carotid bruits, but her Doppler is negative September 01. 2. She has aortic valve disease with the suggestion of a mild aortic stenosis based on a cath December 07. 3. She has an ischemic cardiomyopathy with an EF of 35-40% December 07 echo and 34% by December 10 nuclear. 4. She has coronary artery disease with a large fixed inferior defect by SPECT December 10 of this year. PAST SURGICAL HISTORY 1. Appendectomy 2. Lap band surgery 3. Bladder repair ALLERGIES Her allergy list is extensive and includes: 1. RAMIREZ INHIBITORS 2. ANGIOTENSIN RECEPTOR SOCORRO AND THAT IS WHY SHE IS NOT ON THOSE. 3. THERE ARE ALSO SEVERAL ANTIBIOTICS LISTED, PLEASE SEE LIST. SOCIAL HISTORY Notable for smoking right up until four weeks ago. IMAGING Chest x-ray shows a pleural effusion on the right side going half way up her chest, a left effusion and CHF. EKG shows evidence for inferior Q-waves, LVH, LV strain type pattern. Troponin curve is flat at 22.1, 9.20. Potassium is low at 3.3 and 3.1 this morning. Just ordered 80 mEq to be given today with a repeat potassium this evening. Creatinine is normal 0.91, hematocrit has gone from 32-29.1. IMPRESSION Decompensated CHF. This is acute on chronic systolic CHF. She has significant pleural effusions and may actually need thoracentesis to get herself better. Her elevated troponin could be just due to the CHF. She has got diffuse disease on a previous cath. Chest pain is difficult to sort out right now with difficulty understanding her wearing the BiPap mask. Her 20 mg of Lasix he was taking was not effective in achieving any diuresis. She will need a different diuretic regimen by the time she goes home. She is going to need additional diuresis, possible thoracentesis, pulmonary needs to follow. I will follow her while she is in the hospital. MD JOVANNY Zurita/KULWINDER /9:37 AM /9:49 AM
--- NOTE | 2017-01-02 14:02 | RADRPT ---
EXAM DATE/TIME: 01/02/2017 13:36 [facility] COMPARISON: CHEST SINGLE AP, January 01, 2017, 16:39. INDICATIONS : Right pleural effusion. MEDICAL HISTORY : Myocardial infarction. Chronic obstructive pulmonary disease. Gastroesophageal reflux disease. Migrai ne. Congestive heart failure. Anticoagulant therapy. Emphysema. Hypertension. Hypercholesterolemia. C Diff. SURGICAL HISTORY : CABG. Hysterectomy. Coronary stents. Cardiac catheterization. Lap band. Left breast lumpectomy. ENCOUNTER: Initial ACUITY: 1 day PAIN SCORE: 0/10 LOCATION: Right chest MEASUREMENTS: SKIN TO PARIETAL PLEURA: 1.78 cm SKIN TO MAX SAFE DEPTH: 3.63 cm ESTIMATED FLUID VOLUME: 746 cc FLUID COMPOSITION: simple FINDINGS: Pleural effusion as above. CONCLUSION: There is a small to moderate size simple appearing right pleural effusion. No geovani was performed. Quentin Roman MD on January 02, 2017 at 14:00 Board Certified Radiologist. This report was verified electronically.
[2017-01-02] MEDS ORDERED: NITROGLYCERIN 2% OINT 1 GM PACKET TOPICAL PRN (14:15)
--- NOTE | 2017-01-02 14:20 | HHI.PR ---
Subjective Remarks Pt states she is still sob but feels a bit improved. Currently on BiPAP. Pt states she was going to establish care w Dr. Bhakta but hasn't yet. she would like to see him if possible as he has seen [place] in [place] in the past. Pt has some mild chest pain, admits to mild nausea but no vomiting. Objective Vitals Vital Signs Date Time Temp Pulse Resp B/P (MAP) Pulse Ox O2 Delivery O2 Flow Rate FiO2 01/02/17 11:11 96 30 01/02/17 08:08 94 01/02/17 06:00 66 01/02/17 05:00 66 01/02/17 04:00 98.3 60 18 148/60 (89) 94 01/02/17 03:48 64 01/02/17 03:15 97 BiPAP 40 01/02/17 03:00 64 01/02/17 02:20 97 40 01/02/17 02:00 62 01/02/17 01:46 67 01/02/17 01:35 98.2 68 22 144/69 (94) 97 01/02/17 01:25 94 5.00 01/02/17 01:00 64 20 152/65 (94) 98 BiPAP 40 01/02/17 01:00 98 40 01/02/17 00:05 70 16 154/64 (94) 97 BiPAP 01/02/17 00:05 70 16 154/64 (94) 97 BiPAP 01/01/17 23:00 64 20 139/63 (88) 98 BiPAP 40 01/01/17 22:00 68 15 163/79 (107) 97 BiPAP 40 01/01/17 21:59 100 40 01/01/17 21:30 70 17 177/74 (108) 98 BiPAP 40 01/01/17 21:00 72 16 157/66 (96) 99 BiPAP 50 01/01/17 19:20 98 50 01/01/17 18:55 92 Nasal Cannula 5.00 01/01/17 16:33 99 CPAP 50 01/01/17 15:45 76 23 171/74 (106) 99 CPAP 50 01/01/17 15:45 74 23 100 CPAP 50 01/01/17 15:40 99 50 01/01/17 15:39 78 23 171/74 (106) 99 I/O 01/01/17 01/01/17 01/01/17 01/02/17 01/02/17 01/02/17 07:00 15:00 23:00 07:00 15:00 23:00 Intake Total 240 ml Output Total 750 ml Balance -510 ml Intake Oral 240 ml Output Urine Total 750 ml # Bowel Movements 0 Result Diagram: 01/02/17 0447 01/02/17 0447 Imaging Last Impressions Chest X-Ray 01/01/17 1631 Signed Impressions: Service Date/Time: Sunday, January 01, 2017 16:39 - CONCLUSION: Moderate congestive failure with bilateral pleural effusions larger on the right progressed in the interval. Bayron Jimenez MD FACR Objective Remarks GENERAL: on bipap EYES: Extraocular motions intact. No scleral icterus. No injection or drainage. ENT: BIPAP mask in place. Airway patent. NECK: Trachea midline. CARDIOVASCULAR: Regular rate and rhythm without murmurs RESPIRATORY: coarse sounds, machine noise auscultated, no wheezing. decreased air movement GASTROINTESTINAL: Abdomen soft, non-tender, nondistended. No guarding. MUSCULOSKELETAL: Extremities with 1+ edema. No calf tenderness. Negative Homans sign bilaterally. NEUROLOGICAL: Awake and alert. Cranial nerves II through XII intact. Motor and sensory grossly within normal limits. A/P Assessment and Plan ACUTE ON CHRONIC CHF recent hospitalizations nstemi/ trop elevation from dyspnea r/o PE with recent hospitalization COPD Hypertension Dyslipidemia Depression continue bipap. cardiology following. Elevated trop. added nitroglycerine prn chest pains, continue lasix 40mg iv bid close montioring nebs prn BP and cardiac meds resumed. pulm consult as pt does have pleural effusions, R>L. Check chest u/s to see if possible to drain, ordered u/s thoracentesis and fluid to be sent to the lab. echo ordered and pending. on lovenox therapeutic dose VQ / CT pulm angio when resp status is improved/stable all other chronic meds have been restarted. Discharge Planning pulm consult cards following. Lucinda Mera MD Jan 02, 2017 14:19
--- NOTE | 2017-01-02 18:24 | ECHRPT ---
Indication: Unspecified systolic (congestive) heart failure CONCLUSIONS The left ventricular systolic function is moderately reduced with an estimated ejection fraction in the range of 40-45%. Mild concentric left ventricular hypertrophy. Normal left ventricular size. Suspect scarred akinetic inferior wall but views are suboptimal. The left atrial size is upper normal. There is moderate tricuspid regurgitation. The estimated pulmonary arterial pressure is 42.3 mmHg. BP: 148 / 60 HR: 60 Rhythm: Other MEASUREMENTS (Male / Female) Normal Values Technical Quality:Fair 2D ECHO LV Diastolic Diameter PLAX 5.4 cm 4.2 - 5.9 / 3.9 - 5.3 cm LV Systolic Diameter PLAX 4.4 cm IVS Diastolic Thickness 1.4 cm 0.6 - 1.0 / 0.6 - 0.9 cm LVPW Diastolic Thickness 1.4 cm 0.6 - 1.0 / 0.6 - 0.9 cm LV Relative Wall Thickness 0.5 LVOT Diameter 1.9 cm M-MODE Aortic Root Diameter MM 3.0 cm LA Systolic Diameter MM 4.0 cm LA Ao Ratio MM 1.3 AV Cusp Separation MM 1.7 cm DOPPLER AV Peak Velocity 143.0 cm/s AV Peak Gradient 8.2 mmHg LVOT Peak Velocity 83.9 cm/s LVOT Peak Gradient 2.8 mmHg AV Area Cont Eq pk 1.7 cm MR Peak Velocity 404.0 cm/s MR Peak Gradient 65.3 mmHg Mitral E Point Velocity 106.0 cm/s Mitral A Point Velocity 76.0 cm/s Mitral E to A Ratio 1.4 LV E' Lateral Velocity 8.9 cm/s Mitral E to LV E' Lateral Ratio 12.0 LV E' Septal Velocity 4.5 cm/s Mitral E to LV E' Septal Ratio 23.7 TR Peak Velocity 284.3 cm/s TR Peak Gradient 32.3 mmHg Right Atrial Pressure 10.0 mmHg Pulmonary Artery Systolic Pressu 42.3 mmHg Right Ventricular Systolic Press 42.3 mmHg PV Peak Velocity 129.0 cm/s PV Peak Gradient 6.7 mmHg FINDINGS LEFT VENTRICLE The left ventricular systolic function is moderately reduced with an estimated ejection fraction in the range of 40-45%. Mild concentric left ventricular hypertrophy. Normal left ventricular size. Suspect scarred akinetic inferior wall but views are suboptimal. RIGHT VENTRICLE Normal right ventricular size and systolic function. LEFT ATRIUM The left atrial size is upper normal. RIGHT ATRIUM The right atrial size is normal. ATRIAL SEPTUM Normal atrial septal thickness without atrial level shunting by limited color doppler interrogation. AORTA The aortic root and proximal ascending aorta are normal in size on limited imaging. MITRAL VALVE Structurally normal mitral valve. No mitral valve stenosis or regurgitation. AORTIC VALVE Trileaflet aortic valve. No aortic valve stenosis or regurgitation. TRICUSPID VALVE There is moderate tricuspid regurgitation. The estimated pulmonary arterial pressure is 42.3 mmHg. PULMONARY VALVE No pulmonary valve regurgitation or stenosis. VESSELS The inferior vena cava is normal in size. PERICARDIUM No pericardial effusion. Olegario Calderon MD (Electronically Signed) Final Date:02 January 2017 18:23
--- NOTE | 2017-01-02 18:56 | EKG ---
Date Performed: 01/01/2017 Time Performed: 15:46:59 PTAGE: 71 years EKG: Sinus rhythm WITH OCCASIONAL VENTRICULAR PREMATURE COMPLEXES POSSIBLE LEFT ATRIAL ENLARGEMENT NONSPECIFIC ST & T- WAVE ABNORMALITY BORDERLINE ECG Compared to prior tracing no significant change PREVIOUS TRACING : 12/22/2016 13.42.46 DOCTOR: Mary Ann Rojo Interpretating Date/Time 01/02/2017 18:56:15
--- NOTE | 2017-01-02 18:57 | EKG ---
Date Performed: 01/01/2017 Time Performed: 22:45:34 PTAGE: 71 years EKG: Sinus rhythm POSSIBLE LEFT ATRIAL ENLARGEMENT POSSIBLE LEFT VENTRICULAR HYPERTROPHY NONSPECIFIC ST & T-WAVE ABNOR MALITY ABNORMAL ECG Compared to prior tracing no significant change PREVIOUS TRACING : 01/01/2017 15.46.59 DOCTOR: Mary Ann Rojo Interpretating Date/Time 01/02/2017 18:56:45
--- NOTE | 2017-01-02 18:57 | EKG ---
Date Performed: 01/02/2017 Time Performed: 04:48:18 PTAGE: 71 years EKG: Sinus rhythm with PVC(s) Possible inferior infarct - age undetermined Left ventricular hypertrophy Lateral ST-T c hanges may be due to hypertrophy and/or ischemia Abnormal ECG Compared to prior tracing no significan t change PREVIOUS TRACING : 01/01/2017 22.45 DOCTOR: Mary Ann Rojo Interpretating Date/Time 01/02/2017 18:56:55
--- NOTE | 2017-01-02 19:49 | MB ---
cc: BLAIR LARSEN DATE OF CONSULTATION 01/02/[address] Aurora Mera REASON FOR CONSULTATION Evaluate for shortness of breath and pleural effusion. HISTORY OF THE PRESENT ILLNESS Ms. Gordon is a 71-year-old female with history of coronary artery disease status post CABG and multiple stents placed. She has a long history of smoking, COPD. The patient was recently discharged from this hospital. The patient has worsening of shortness of breath and saturation was in the 80s. She was brought to the hospital. She was put on BiPAP and now she is on a non-rebreather mask. The patient had a chest x-ray done which shows right pleural effusion. The patient is seen by Dr. Calderon and he suggests for thoracentesis. LABORATORY DATA Her lab evaluation revealed WBC count 6.5, hemoglobin 9.19, hematocrit 29.2, MCV 88, platelet count 141. Sodium 139, potassium 3.1, chloride 99, CO2 32, BUN 15, creatinine 0.91 to 2.020. Her blood gas on 50% mask showed pH 7.45, PCO2 44, PO2 113. PAST MEDICAL HISTORY Her past medical history is significant for: 1. History of coronary artery disease status post CABG, multiple stent placements. 2. History of cardiomyopathy. 3. Chronic obstructive pulmonary disease. 4. Hypertension. 5. Gastroesophageal reflux disease. 6. Nicotine use. MEDICATIONS She is currently takin. Nitroglycerin 0.50 inch q. 6-hour. 2. Lasix 40 mg a day. 3. Aspirin 81 mg daily. 4. Plavix 75 mg a day. 5. Imdur 30 mg a day. 6. Albuterol/Atrovent nebulizer treatment. 7. Lipitor 80 mg daily. 8. Doxycycline 100 milligrams twice a day. 9. Questran 4 grams q.12 h. 10. Prozac 20 mg a day. 11. Metoprolol 75 mg a day. 12. Spiriva once a day. 13. Lovenox 80 mg q. 12-hour. 14. Temazepam 15 mg at nighttime. ALLERGIES SHE IS ALLERGIC TO ZITHROMAX, CEPHALEXIN, CODEINE, FLUTICASONE, LISINOPRIL, LOSARTAN, SOLMETEROL. SOCIAL HISTORY She is , lives alone. 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 She has long history of smoking which she recently quit. FAMILY HISTORY She has two children, one son . REVIEW OF SYSTEMS She barely walks inside the house. Has no fever or chills. No night sweats. No DVT or pulmonary embolism. PHYSICAL EXAMINATION GENERAL: Elderly female, short of breath. She is on partial rebreather. Her saturation is 100%. VITAL SIGNS: Blood pressure 148/60, heart rate 66, respirations 18, temperature 98.3. HEENT: Examination pupils are equal and reactive to light. Oral mucosa, nasal mucosa normal. NECK: JVP not raised. CHEST: She has dull percussion and decreased breath sounds at the right base. CARDIOVASCULAR: S1-S2 normal. ABDOMEN: Benign. EXTREMITIES: 1+ pedal edema. IMPRESSION 1. Right pleural effusion. 2. Dyspnea with hypoxia. 3. COPD. 4. Coronary artery disease, multiple stents and CABG. 5. History of gastroesophageal reflux. 6. History of nicotine use. PLAN She is on non-rebreather mask maintaining saturation 100%. I will wean her oxygen to keep the saturation 90-92%. She will need thoracentesis. before we do thoracentesis she will need to be off Plavix for 5 days if it is okay with cardiology. We will give her aerosol treatment. Continue p.o. antibiotics, supplemental oxygen. She is being diuresed. Further treatment will depend on the course in the hospital. Thank you Dr. Aurora Mera for this consultation. MD JEFFERY Galeana/ELVIRA /6:41 PM /7:17 PM JESUS
[2017-01-02] MEDS: ALPRAZolam 0.5 MG TAB PO PRN (23:33)
[2017-01-02] MEDS: ATORVASTATIN 80 MG TAB PO SCH (23:33)
[2017-01-02] MEDS: TEMAZEPAM 15 MG CAP PO PRN (23:34)
[2017-01-03] VITALS (32 sets, daily range): BP systolic 138–159; BP diastolic 63–80; PULSE 67–86; RESP 18–20; TEMP 97.8–98.2; O2SAT 90–97
[2017-01-03] MEDS: RESP: ALBUTEROL 2.5 MG/IPRATROPIUM 0.5 MG NEB (SCH) NEB ×7 (03:13→21:48)
[2017-01-03 05:58] LABS: AUTOMATED NEUTROPHIL # 4.5 TH/MM3 (1.8-7.7); BASOPHIL % 0.2 % (0.0-2.0); EOSINOPHIL % 0.1 % (0.0-4.0); HEMATOCRIT 31.7 % (35.0-46.0); HEMO FLAGS DIFF FINAL; LYMPH % 7.9 % (9.0-44.0); LYMPHOCYTE # 0.4 TH/MM3 (1.0-4.8); MEAN CELL VOLUME 88.3 FL (80.0-100.0); MEAN CORPUSCULAR HEMOGLOBIN 29.4 PG (27.0-34.0); MEAN CORPUSCULAR HGB CONC 33.3 % (32.0-36.0); MONO % 7.2 % (0.0-8.0); NEUT % 84.6 % (16.0-70.0); PLATELET COUNT 147 TH/MM3 (150-450); RED BLOOD COUNT 3.59 MIL/MM3 (4.00-5.30); RED CELL DISTRIBUTION WIDTH 15.8 % (11.6-17.2); WHITE BLOOD COUNT 5.3 TH/MM3 (4.0-11.0)
[2017-01-03 06:13] LABS: ANION GAP 7 MEQ/L (5-15); AST (GOT) 22 U/L (15-37); BICARBONATE 32.6 MEQ/L (21.0-32.0); BLOOD UREA NITROGEN 16 MG/DL (7-18); CHLORIDE 98 MEQ/L (98-107); GLOMERULAR FILTRATION RATE 62 ML/MIN (>89); MAGNESIUM 1.8 MG/DL (1.5-2.5); POTASSIUM 3.9 MEQ/L (3.5-5.1); SODIUM (NA) 138 MEQ/L (136-145)
[2017-01-03 06:16] LABS: ALKALINE PHOSPHATASE 63 U/L (45-117); ALT (GPT) 29 U/L (10-53)
[2017-01-03] MEDS: MAGNESIUM SULFATE 1 GM PREMIX 100 ML IV SCH ×2 (08:00→09:00)
[2017-01-03] MEDS: ENOXAPARIN SODIUM 80 MG/0.8 ML SYRINGE SQ SCH (08:00)
[2017-01-03] MEDS: METOPROLOL TARTRATE 25 MG TAB PO SCH ×2 (08:44→21:11)
[2017-01-03] MEDS: ISOSORBIDE MONONITRATE 30 MG TAB PO SCH (08:44)
[2017-01-03] MEDS: CHOLESTYRAMINE 4 GM PACKET PO SCH ×2 (08:45→21:12)
[2017-01-03] MEDS: amLODIPine BESYLATE 5 MG TAB PO SCH ×2 (08:45→21:11)
[2017-01-03] MEDS: DOXYCYCLINE HYCLATE 100 MG TAB PO SCH ×2 (08:47→21:11)
[2017-01-03] MEDS: FLUoxetine HCL 20 MG CAP PO SCH ×2 (08:47→21:11)
[2017-01-03] MEDS: SODIUM CHLORIDE 0.9% FLUSH 10 ML FLUSH IV FLUSH SCH ×2 (08:47→21:11)
[2017-01-03] MEDS: ASPIRIN EC 81 MG TABEC PO SCH (08:47)
[2017-01-03] MEDS: TIOTROPIUM BROMIDE 18 MCG INH INH SCH (08:48)
[2017-01-03] MEDS: FUROSEMIDE 40 MG/4 ML VIAL IV PUSH SCH ×2 (08:48→18:00)
[2017-01-03] MEDS: POTASSIUM CHLORIDE 20 MEQ CONTROLLED RELEASE TAB PO SCH ×4 (09:00→21:11)
[2017-01-03] MEDS: CLOPIDOGREL 75 MG TAB PO SCH (09:00)
--- NOTE | 2017-01-03 09:03 | PD.CARD.PN ---
Subjective Subjective Remarks Very SOB, c/o diarrhea Objective Medications Current Medications Medications (Trade) Dose Ordered Sig/Samy Route Start Time Stop Time Status Last Admin (NS Flush) 2 ml UNSCH PRN IV FLUSH 01/01/17 18:30 (NS Flush) 2 ml BID IV FLUSH 01/01/17 21:00 01/03/17 08:47 (Narcan Inj) 0.4 mg UNSCH PRN IV PUSH 01/01/17 18:30 (Lasix Inj) 40 mg BID@18 IV PUSH 01/02/17 09:00 01/03/17 08:48 (Lovenox Inj) 80 mg Q12H SQ 01/01/17 20:00 Future Hold 01/02/17 23:37 (Xanax) 0.5 mg Q8H PRN PO 01/01/17 19:45 01/02/17 23:33 (Norvasc) 5 mg BID PO 01/01/17 21:00 01/03/17 08:45 (Ecotrin Ec) 81 mg DAILY PO 01/02/17 09:00 01/03/17 08:47 (Lipitor) 80 mg HS PO 01/01/17 21:00 01/02/17 23:33 (Questran 4 Gm Pkt) 4 gm Q12HR PO 01/01/17 21:00 01/02/17 09:00 (Plavix) 75 mg DAILY PO 01/02/17 09:00 01/02/17 09:49 (Vibratab) 100 mg BID PO 01/01/17 21:00 01/03/17 08:47 (PROzac) 20 mg BID PO 01/01/17 21:00 01/03/17 08:47 ([place] 5-325 Mg) 1 tab Q6H PRN PO 01/01/17 19:45 (Duoneb Neb) 1 ampule Q6HR WHILE AWAKE NEB NEB 01/01/17 20:00 01/02/17 19:47 (Imdur) 30 mg DAILY PO 01/02/17 09:00 01/03/17 08:44 (Lopressor) 75 mg BID PO 01/01/17 21:00 01/03/17 08:44 (Restoril) 15 mg HS PRN PO 01/01/17 19:45 11/7/17 23:34 (Spiriva Inh) 18 mcg DAILY INH 01/01/17 21:00 01/03/17 08:48 (Duoneb Neb) 1 ampule Q6HR NEB NEB 01/01/17 22:00 01/03/17 03:13 (Duoneb Neb) 1 ampule Q2HR NEB PRN NEB 01/01/17 19:45 (Nitroglycerin 2% Oint) 0.5 inch Q6HR PRN TOPICAL 01/02/17 14:15 (KCl) 20 meq QID PO 01/03/17 09:00 Magnesium Sulfate/ Dextrose 100 ml @ 100 mls/hr Q1H IV 01/03/17 08:00 01/03/17 09:59 01/03/17 08:00 Vital Signs / I&O Vital Signs Date Time Temp Pulse Resp B/P (MAP) Pulse Ox O2 Delivery O2 Flow Rate FiO2 01/03/17 08:00 76 01/03/17 07:00 98.0 79 18 159/80 (106) 97 01/03/17 07:00 79 01/03/17 06:09 79 01/03/17 05:00 80 01/03/17 04:20 72 01/03/17 03:25 77 01/03/17 03:22 98.2 73 18 155/68 (97) 96 01/03/17 03:10 96 50 01/03/17 02:00 77 01/03/17 01:20 97 50 01/03/17 01:00 76 01/03/17 00:00 86 01/02/17 23:25 95 50 01/02/17 23:15 98.1 75 18 184/86 (118) 97 01/02/17 23:00 121 01/02/17 22:00 92 01/02/17 21:00 86 01/02/17 20:20 98.4 86 20 160/66 (97) 91 01/02/17 20:00 82 01/02/17 19:50 92 Nasal Cannula 6.00 01/02/17 19:00 91 01/02/17 11:11 96 30 I/O 01/02/17 01/02/17 01/02/17 01/03/17 01/03/17 01/03/17 07:00 15:00 23:00 07:00 15:00 23:00 Intake Total 240 ml 600 ml 240 ml Output Total 750 ml 600 ml 400 ml Balance -510 ml 0 ml -160 ml Intake Oral 240 ml 600 ml 240 ml Output Urine Total 750 ml 600 ml 400 ml # Bowel Movements 0 2 2 Physical Exam Alert Chest Absent BS R>L base CV S1S2 RRR Edema gone Laboratory Laboratory Tests Test 01/02/17 17:20 01/03/17 04:53 Potassium Level 3.2 MEQ/L 3.9 MEQ/L White Blood Count 5.3 TH/MM3 Red Blood Count 3.59 MIL/MM3 Hemoglobin 10.5 GM/DL Hematocrit 31.7 % Mean Corpuscular Volume 88.3 FL Mean Corpuscular Hemoglobin 29.4 PG Mean Corpuscular Hemoglobin Concent 33.3 % Red Cell Distribution Width 15.8 % Platelet Count 147 TH/MM3 Mean Platelet Volume 9.6 FL Neutrophils (%) (Auto) 84.6 % Lymphocytes (%) (Auto) 7.9 % Monocytes (%) (Auto) 7.2 % Eosinophils (%) (Auto) 0.1 % Basophils (%) (Auto) 0.2 % Neutrophils # (Auto) 4.5 TH/MM3 Lymphocytes # (Auto) 0.4 TH/MM3 Monocytes # (Auto) 0.4 TH/MM3 Eosinophils # (Auto) 0.0 TH/MM3 Basophils # (Auto) 0.0 TH/MM3 CBC Comment DIFF FINAL Differential Comment Blood Urea Nitrogen 16 MG/DL Creatinine 0.90 MG/DL Random Glucose 82 MG/DL Total Protein 5.4 GM/DL Albumin 2.6 GM/DL Calcium Level 8.0 MG/DL Magnesium Level 1.8 MG/DL Alkaline Phosphatase 63 U/L Aspartate Amino Transf (AST/SGOT) 22 U/L Alanine Aminotransferase (ALT/SGPT) 29 U/L Total Bilirubin 1.0 MG/DL Sodium Level 138 MEQ/L Chloride Level 98 MEQ/L Carbon Dioxide Level 32.6 MEQ/L Anion Gap 7 MEQ/L Estimat Glomerular Filtration Rate 62 ML/MIN Assessment and Plan Problem List: (1) Pleural effusion ICD Codes: J90 - Pleural effusion, not elsewhere classified Plan: Hold enoxaparin to allow thoracentesis this PM (2) CHF exacerbation ICD Codes: I50.9 - Heart failure, unspecified Status: Acute (3) Hypertension, benign ICD Codes: I10 - Hypertension, benign Status: Chronic (4) COPD with acute exacerbation ICD Codes: J44.1 - Chronic obstructive pulmonary disease with (acute) exacerbation Status: Acute (5) CAD (coronary artery disease) ICD Codes: I25.10 - CAD (coronary artery disease) Status: Chronic Plan: Prob stable (6) Hypokalemia ICD Codes: E87.6 - Hypokalemia Plan: Improved Olegario Calderon MD Jan 03, 2017 09:03
--- NOTE | 2017-01-03 14:06 | PD.RAD ---
Post US Procedure Prog Note Pre Procedure Diagnosis: (1) Pleural effusion Post Procedure Diagnosis: (1) Pleural effusion Procedure Date: Jan 03, 2017 Supervising Radiologist: Quentin Roman Proceduralist/Assist: Uzma Sanchez RDMS Estimated blood loss: none Anesthesia: Local Plan of Activity Patient to Unit: Other Patient Condition: Good See PACS Report for procedural detail/treatment Drainage Procedure Procedure 1 Imaging Guidance: Ultrasound Side: Right Procedure Type: Thoracentesis Drainage: Suction Fluid Removal (CCs): 800 Fluid Description: Clear, Yellow Plan post procedure chest xray then return to floor. Quentin Roman MD Jan 03, 2017 14:06
--- NOTE | 2017-01-03 14:31 | RADRPT ---
EXAM DATE/TIME: 01/03/2017 14:09 [facility] COMPARISON: CHEST SINGLE AP, January 01, 2017, 16:39. INDICATIONS : Post right thoracentesis. MEDICAL HISTORY : Myocardial infarction. Chronic obstructive pulmonary disease. Gastroesophageal reflux disease. Migrai ne. Congestive heart failure. Anticoagulant therapy. Emphysema. Hypertension. Hypercholesterolemia. C Diff. SURGICAL HISTORY : CABG. Hysterectomy. Coronary stents. Cardiac catheterization. Lap band. Left breast lumpectomy. ENCOUNTER: Subsequent ACUITY: 3 days PAIN SCORE: 0/10 LOCATION: Right chest FINDINGS: Portable upright expiratory view of the chest demonstrates cardiac silhouette size at the upper limit s for normal with calcification of the aorta. Patient is post median sternotomy and CABG. The right p leural effusion has resolved. There is mild subsegmental atelectasis at the right lung base. No pneum othorax is present. There is stable small left basilar pleural-parenchymal opacity. CONCLUSION: 1. Resolution of the right pleural effusion. No pneumothorax is present. 2. Persistent small left basilar opacity likely representing a very small pleural effusion. Quentin Roman MD on January 03, 2017 at 14:28 Board Certified Radiologist. This report was verified electronically.
[2017-01-03] MEDS: ACETAMINOPHEN/HYDROcodone 325 MG/5 MG TAB PO PRN (15:00)
--- NOTE | 2017-01-03 15:06 | RADRPT ---
EXAM DATE/TIME: 01/03/2017 13:18 [facility] COMPARISON: No previous studies available for comparison. INDICATIONS : Right pleural effusion. MEDICAL HISTORY : Myocardial infarction. Chronic obstructive pulmonary disease. Gastroesophageal reflux disease. Migrai ne. Congestive heart failure. Anticoagulant therapy. Emphysema. Hypertension. Hypercholesterolemia. C Diff. SURGICAL HISTORY : CABG. Hysterectomy. Coronary stents. Cardiac catheterization. Lap band. Left breast lumpectomy. ENCOUNTER: Initial ACUITY: 1 day PAIN SCORE: 0/10 LOCATION: Right chest FLUID: Total volume of 800 cc of clear, yellow fluid was removed. Fluid was sent to lab for ordered studies. TECHNIQUE: 1. Ultrasound guidance for thoracentesis. 2. Thoracentesis. The risks, benefits, and alternatives to ultrasound guided thoracentesis were explained to the patien t in lay simple terms, including the risk of bleeding and infection. Written and verbal informed con sent was obtained. Appropriate area for thoracentesis was marked under ultrasound guidance with the patient in the uprig ht position. Overlying skin was prepped and draped in the usual sterile fashion and with local anest hetic, a dermatotomy was made with an 11 blade scalpel. A 6 Arabic thoracentesis catheter was placed in the pleural space and fluid was removed. Catheter was then removed and a sterile dressing applie d. There were no immediate complications. The patient tolerated the procedure well and the left the ultrasound suite in stable condition. Chest radiograph is to be obtained. CONCLUSION: Uncomplicated ultrasound guided right thoracentesis with removal of 800 cc of clear yellow fluid. Quentin Roman MD on January 03, 2017 at 15:04 Board Certified Radiologist. This report was verified electronically.
--- NOTE | 2017-01-03 15:18 | HHI.PR ---
Subjective Remarks Pt feeling so much better s/p thoracentesis. Has some chest discomfort but not "too bad". denies any nausea or vomiting. Pt just got back from thoracentesis Objective Vitals Vital Signs Date Time Temp Pulse Resp B/P (MAP) Pulse Ox O2 Delivery O2 Flow Rate FiO2 01/03/17 13:35 98.0 75 20 147/63 (91) 90 01/03/17 11:19 67 01/03/17 11:00 98.2 67 20 140/68 (92) 96 01/03/17 10:07 93 Nasal Cannula 5.00 01/03/17 10:00 76 01/03/17 09:00 70 01/03/17 08:00 76 01/03/17 07:00 98.0 79 18 159/80 (106) 97 01/03/17 07:00 79 01/03/17 06:09 79 01/03/17 05:00 80 01/03/17 04:20 72 01/03/17 03:25 77 01/03/17 03:22 98.2 73 18 155/68 (97) 96 01/03/17 03:10 96 50 01/03/17 02:00 77 01/03/17 01:20 97 50 01/03/17 01:00 76 01/03/17 00:00 86 01/02/17 23:25 95 50 01/02/17 23:15 98.1 75 18 184/86 (118) 97 01/02/17 23:00 121 01/02/17 22:00 92 01/02/17 21:00 86 01/02/17 20:20 98.4 86 20 160/66 (97) 91 01/02/17 20:00 82 01/02/17 19:50 92 Nasal Cannula 6.00 01/02/17 19:00 91 I/O 01/02/17 01/02/17 01/02/17 01/03/17 01/03/17 01/03/17 07:00 15:00 23:00 07:00 15:00 23:00 Intake Total 240 ml 600 ml 240 ml Output Total 750 ml 600 ml 400 ml Balance -510 ml 0 ml -160 ml Intake Oral 240 ml 600 ml 240 ml Output Urine Total 750 ml 600 ml 400 ml # Bowel Movements 0 2 2 Result Diagram: 01/03/17 0453 01/03/17 0453 Imaging Last Impressions Chest X-Ray 01/03/17 0000 Signed Impressions: Service Date/Time: Tuesday, January 03, 2017 14:09 - CONCLUSION: 1. Resolution of the right pleural effusion. No pneumothorax is present. 2. Persistent small left basilar opacity likely representing a very small pleural effusion. Quentin Roman MD Chest Ultrasound 01/02/17 0000 Signed Impressions: Service Date/Time: Monday, January 02, 2017 13:36 - CONCLUSION: There is a small to moderate size simple appearing right pleural effusion. No geovani was performed. Quentin Roman MD Objective Remarks GENERAL: NC tolerating it well. EYES: Extraocular motions intact. ENT: Airway patent. NECK: Trachea midline. CARDIOVASCULAR: Regular rate and rhythm without murmurs RESPIRATORY: decreased air movement but no wheezing or crackles appreciated, dressing over the right chest, w some oozing on dressing noted. GASTROINTESTINAL: Abdomen soft, non-tender, nondistended. No guarding. MUSCULOSKELETAL: Extremities with 1+ edema. No calf tenderness. Negative Homans sign bilaterally. NEUROLOGICAL: Awake and alert. Cranial nerves II through XII intact. Motor and sensory grossly within normal limits. A/P Assessment and Plan ACUTE ON CHRONIC CHF recent hospitalizations nstemi/ trop elevation from dyspnea r/o PE with recent hospitalization COPD Hypertension Dyslipidemia Depression s/p thoracenthesis. cardiology following. Elevated trop. nitroglycerine prn chest pains, continue lasix 40mg iv bid close montioring nebs prn on BP and cardiac meds pulm following. pleural fluid cultures pending. echo EF 40-45% on lovenox therapeutic dose which was held for procedure. I have discussed w Dr. Roman (IR) and he cleared for pt to resumed lovenox. VQ / CT pulm angio when resp status is improved/stable all other chronic meds have been restarted. Discharge Planning pulmonology and cardiology following s/p thoracentesis today f/u fluid cultures. Lucinda Mera MD Jan 03, 2017 15:18
[2017-01-03 15:26] LABS: PLEURAL FLUID LYMPHS 23 %
--- NOTE | 2017-01-03 19:26 | HHI.PR ---
Subjective Remarks 71 YOWF with CAD, multiple stents, CHF Pl eff Had Thoracentesisi Breathing better No Fever No CP Objective Vital Signs Vital Signs Date Time Temp Pulse Resp B/P (MAP) Pulse Ox O2 Delivery O2 Flow Rate FiO2 01/03/17 18:00 76 01/03/17 17:00 72 01/03/17 16:51 72 01/03/17 15:00 98.0 72 20 138/63 (88) 90 01/03/17 15:00 74 01/03/17 14:00 78 01/03/17 13:35 98.0 75 20 147/63 (91) 90 01/03/17 13:00 73 01/03/17 12:00 73 01/03/17 11:19 67 01/03/17 11:00 98.2 67 20 140/68 (92) 96 01/03/17 10:07 93 Nasal Cannula 5.00 01/03/17 10:00 76 01/03/17 09:00 70 01/03/17 08:00 76 01/03/17 07:00 98.0 79 18 159/80 (106) 97 01/03/17 07:00 79 01/03/17 06:09 79 01/03/17 05:00 80 01/03/17 04:20 72 01/03/17 03:25 77 01/03/17 03:22 98.2 73 18 155/68 (97) 96 01/03/17 03:10 96 50 01/03/17 02:00 77 01/03/17 01:20 97 50 01/03/17 01:00 76 01/03/17 00:00 86 01/02/17 23:25 95 50 01/02/17 23:15 98.1 75 18 184/86 (118) 97 01/02/17 23:00 121 01/02/17 22:00 92 01/02/17 21:00 86 01/02/17 20:20 98.4 86 20 160/66 (97) 91 01/02/17 20:00 82 01/02/17 19:50 92 Nasal Cannula 6.00 I/O 01/02/17 01/02/17 01/02/17 01/03/17 01/03/17 01/03/17 07:00 15:00 23:00 07:00 15:00 23:00 Intake Total 240 ml 600 ml 240 ml 240 ml Output Total 750 ml 600 ml 400 ml Balance -510 ml 0 ml -160 ml 240 ml Intake Oral 240 ml 600 ml 240 ml 240 ml Output Urine Total 750 ml 600 ml 400 ml # Bowel Movements 0 2 2 Result Diagram: 01/03/17 0453 01/03/17 0453 Objective Remarks GENERAL: MBMN WF, mild sob SKIN: Warm and dry. HEAD: Normocephalic. EYES: No scleral icterus. No injection or drainage. NECK: Supple, trachea midline. No JVD or lymphadenopathy. CARDIOVASCULAR: Regular rate and rhythm without murmurs, gallops, or rubs. RESPIRATORY: Breath sounds equal bilaterally. No accessory muscle use. GASTROINTESTINAL: Abdomen soft, non-tender, nondistended. MUSCULOSKELETAL: No cyanosis, or edema. BACK: Nontender without obvious deformity. No CVA tenderness. A/P Assessment and Plan Pleural effusion, s/p TC CHF COPD CAD H/O Nicotine use PLAN: Diurease Supplement [address] fluid results Plavix 75 mg daily Jayy Bhakta MD Jan 03, 2017 19:26
[2017-01-03] MEDS: ATORVASTATIN 80 MG TAB PO SCH (21:11)
[2017-01-04] VITALS (29 sets, daily range): BP systolic 122–162; BP diastolic 63–72; PULSE 61–80; RESP 20–24; TEMP 97.7–98.3; O2SAT 87–97
[2017-01-04] MEDS: ALPRAZolam 0.5 MG TAB PO PRN ×2 (00:02→13:57)
[2017-01-04] MEDS: ACETAMINOPHEN/HYDROcodone 325 MG/5 MG TAB PO PRN ×2 (00:02→09:48)
[2017-01-04] MEDS: RESP: ALBUTEROL 2.5 MG/IPRATROPIUM 0.5 MG NEB (SCH) NEB ×7 (04:06→22:00)
[2017-01-04 07:12] LABS: AUTOMATED NEUTROPHIL # 3.6 TH/MM3 (1.8-7.7); BASOPHIL % 0.3 % (0.0-2.0); EOSINOPHIL % 0.7 % (0.0-4.0); HEMO FLAGS DIFF FINAL; LYMPH % 10.9 % (9.0-44.0); LYMPHOCYTE # 0.5 TH/MM3 (1.0-4.8); MEAN CORPUSCULAR HEMOGLOBIN 29.4 PG (27.0-34.0); MONO % 5.8 % (0.0-8.0); NEUT % 82.3 % (16.0-70.0); PLATELET COUNT 129 TH/MM3 (150-450); RED BLOOD COUNT 3.49 MIL/MM3 (4.00-5.30); RED CELL DISTRIBUTION WIDTH 16.1 % (11.6-17.2); WHITE BLOOD COUNT 4.4 TH/MM3 (4.0-11.0)
[2017-01-04 07:22] LABS: BICARBONATE 32.7 MEQ/L (21.0-32.0); MAGNESIUM 2.3 MG/DL (1.5-2.5); POTASSIUM 4.2 MEQ/L (3.5-5.1)
--- NOTE | 2017-01-04 08:25 | PD.CARD.PN ---
Subjective Subjective Remarks SOB better but still not normal for her Objective Medications Current Medications Medications (Trade) Dose Ordered Sig/Samy Route Start Time Stop Time Status Last Admin (NS Flush) 2 ml UNSCH PRN IV FLUSH 01/01/17 18:30 (NS Flush) 2 ml BID IV FLUSH 01/01/17 21:00 01/03/17 21:11 (Narcan Inj) 0.4 mg UNSCH PRN IV PUSH 01/01/17 18:30 (Lasix Inj) 40 mg BID@18 IV PUSH 01/02/17 09:00 01/03/17 18:00 (Lovenox Inj) 80 mg Q12H SQ 01/01/17 20:00 Future hold 01/02/17 23:37 (Xanax) 0.5 mg Q8H PRN PO 01/01/17 19:45 01/04/17 00:02 (Norvasc) 5 mg BID PO 01/01/17 21:00 01/03/17 21:11 (Ecotrin Ec) 81 mg DAILY PO 01/02/17 09:00 01/03/17 08:47 (Lipitor) 80 mg HS PO 01/01/17 21:00 01/03/17 21:11 (Questran 4 Gm Pkt) 4 gm Q12HR PO 01/01/17 21:00 01/03/17 21:12 (Plavix) 75 mg DAILY PO 01/02/17 09:00 01/03/17 09:00 (Vibratab) 100 mg BID PO 01/01/17 21:00 01/03/17 21:11 (PROzac) 20 mg BID PO 01/01/17 21:00 01/03/17 21:11 ([place] 5-325 Mg) 1 tab Q6H PRN PO 01/01/17 19:45 01/04/17 00:02 (Duoneb Neb) 1 ampule Q6HR WHILE AWAKE NEB NEB 01/01/17 20:00 01/03/17 15:02 (Imdur) 30 mg DAILY PO 01/02/17 09:00 01/03/17 08:44 (Lopressor) 75 mg BID PO 01/01/17 21:00 01/03/17 21:11 (Restoril) 15 mg HS PRN PO 01/01/17 19:45 01/02/17 23:34 (Spiriva Inh) 18 mcg DAILY INH 01/01/17 21:00 01/03/17 08:48 (Duoneb Neb) 1 ampule Q6HR NEB NEB 01/01/17 22:00 01/04/17 04:06 (Duoneb Neb) 1 ampule Q2HR NEB PRN NEB 01/01/17 19:45 (Nitroglycerin 2% Oint) 0.5 inch Q6HR PRN TOPICAL 01/02/17 14:15 (KCl) 20 meq TID PO 01/04/17 09:00 UNV (Apresoline) 10 mg Q8HR PO 01/04/17 14:00 UNV (Isordil) 10 mg Q8HR PO 01/04/17 14:00 UNV Vital Signs / I&O Vital Signs Date Time Temp Pulse Resp B/P (MAP) Pulse Ox O2 Delivery O2 Flow Rate FiO2 01/04/17 06:00 73 01/04/17 05:00 70 01/04/17 04:07 92 Nasal Cannula 5.00 01/04/17 04:00 66 01/04/17 03:31 97.7 65 20 144/72 (96) 93 01/04/17 03:00 65 01/04/17 02:00 64 01/04/17 01:00 66 01/04/17 00:00 70 01/03/17 23:00 70 01/03/17 23:00 98.1 71 20 152/71 (98) 90 01/03/17 22:00 70 01/03/17 21:51 95 Nasal Cannula 5.00 01/03/17 21:01 97.8 75 18 145/80 (101) 96 01/03/17 21:00 74 01/03/17 20:00 72 01/03/17 19:00 74 01/03/17 18:00 76 01/03/17 17:00 72 01/03/17 16:51 72 01/03/17 15:00 98.0 72 20 138/63 (88) 90 01/03/17 15:00 74 01/03/17 14:00 78 01/03/17 13:35 98.0 75 20 147/63 (91) 90 01/03/17 13:00 73 01/03/17 12:00 73 01/03/17 11:19 67 01/03/17 11:00 98.2 67 20 140/68 (92) 96 01/03/17 10:07 93 Nasal Cannula 5.00 01/03/17 10:00 76 01/03/17 09:00 70 I/O 01/03/17 01/03/17 01/03/17 01/04/17 01/04/17 01/04/17 07:00 15:00 23:00 07:00 15:00 23:00 Intake Total 240 ml 240 ml 720 ml Output Total 400 ml 250 ml Balance -160 ml 240 ml 470 ml Intake Oral 240 ml 240 ml 720 ml Output Urine Total 400 ml 250 ml # Bowel Movements 2 2 Physical Exam Alert Chest diminished throughout CV S1S2 RRR Edema trace CXR dramatically better Laboratory Laboratory Tests Test 01/03/17 14:00 01/04/17 06:07 Pleural Fluid pH 8.0 Pleural Fluid WBC 69 /MM3 Pleural Fluid RBC 514 /MM3 Pleural Fluid Neutrophils 52 % Pleural Fluid Lymphocytes 23 % Pleural Fluid Monocytes 16 % Pleural Fluid Histiocytes 7 % Pleural Fluid Mesothelial Cells 2 % Pleural Fluid Comment Pleural Fluid Total Protein 1.0 GM/DL Pleural Fluid LDH 70 U/L Pleural Fluid Glucose 114 MG/DL White Blood Count 4.4 TH/MM3 Red Blood Count 3.49 MIL/MM3 Hemoglobin 10.3 GM/DL Hematocrit 31.0 % Mean Corpuscular Volume 89.0 FL Mean Corpuscular Hemoglobin 29.4 PG Mean Corpuscular Hemoglobin Concent 33.0 % Red Cell Distribution Width 16.1 % Platelet Count 129 TH/MM3 Mean Platelet Volume 9.5 FL Neutrophils (%) (Auto) 82.3 % Lymphocytes (%) (Auto) 10.9 % Monocytes (%) (Auto) 5.8 % Eosinophils (%) (Auto) 0.7 % Basophils (%) (Auto) 0.3 % Neutrophils # (Auto) 3.6 TH/MM3 Lymphocytes # (Auto) 0.5 TH/MM3 Monocytes # (Auto) 0.3 TH/MM3 Eosinophils # (Auto) 0.0 TH/MM3 Basophils # (Auto) 0.0 TH/MM3 CBC Comment DIFF FINAL Differential Comment Blood Urea Nitrogen 19 MG/DL Creatinine 0.87 MG/DL Random Glucose 95 MG/DL Calcium Level 8.3 MG/DL Magnesium Level 2.3 MG/DL Sodium Level 137 MEQ/L Potassium Level 4.2 MEQ/L Chloride Level 98 MEQ/L Carbon Dioxide Level 32.7 MEQ/L Anion Gap 6 MEQ/L Estimat Glomerular Filtration Rate 64 ML/MIN Imaging Last 48 hours Impressions Thoracentesis Ultrasound 01/03/17 0000 Signed Impressions: Service Date/Time: Tuesday, January 03, 2017 13:18 - CONCLUSION: Uncomplicated ultrasound guided right thoracentesis with removal of 800 cc of clear yellow fluid. Quentin Roman MD Chest X-Ray 01/03/17 0000 Signed Impressions: Service Date/Time: Tuesday, January 03, 2017 14:09 - CONCLUSION: 1. Resolution of the right pleural effusion. No pneumothorax is present. 2. Persistent small left basilar opacity likely representing a very small pleural effusion. Quentin Roman MD Assessment and Plan Problem List: (1) Pleural effusion ICD Codes: J90 - Pleural effusion, not elsewhere classified (2) CHF exacerbation ICD Codes: I50.9 - Heart failure, unspecified Status: Acute (3) Hypertension, benign ICD Codes: I10 - Hypertension, benign Status: Chronic (4) COPD with acute exacerbation ICD Codes: J44.1 - Chronic obstructive pulmonary disease with (acute) exacerbation Status: Acute (5) CAD (coronary artery disease) ICD Codes: I25.10 - CAD (coronary artery disease) Status: Chronic Assessment and Plan Will change to PO torsemide 20mg daily possibly tomorrow. Add hydralazine/ Isordil since cannot use ACEI or ARB Olegario Calderon MD Jan 04, 2017 08:25
[2017-01-04] MEDS: amLODIPine BESYLATE 5 MG TAB PO SCH ×2 (09:23→20:48)
[2017-01-04] MEDS: CHOLESTYRAMINE 4 GM PACKET PO SCH ×2 (09:23→20:51)
[2017-01-04] MEDS: ISOSORBIDE MONONITRATE 30 MG TAB PO SCH (09:23)
[2017-01-04] MEDS: DOXYCYCLINE HYCLATE 100 MG TAB PO SCH ×2 (09:23→20:48)
[2017-01-04] MEDS: ENOXAPARIN SODIUM 80 MG/0.8 ML SYRINGE SQ SCH ×2 (09:23→20:49)
[2017-01-04] MEDS: FLUoxetine HCL 20 MG CAP PO SCH ×2 (09:23→20:48)
[2017-01-04] MEDS: POTASSIUM CHLORIDE 20 MEQ CONTROLLED RELEASE TAB PO SCH ×3 (09:23→18:39)
[2017-01-04] MEDS: ASPIRIN EC 81 MG TABEC PO SCH (09:24)
[2017-01-04] MEDS: CLOPIDOGREL 75 MG TAB PO SCH (09:24)
[2017-01-04] MEDS: SODIUM CHLORIDE 0.9% FLUSH 10 ML FLUSH IV FLUSH SCH ×2 (09:25→20:49)
[2017-01-04] MEDS: FUROSEMIDE 40 MG/4 ML VIAL IV PUSH SCH ×2 (09:25→18:39)
[2017-01-04] MEDS: METOPROLOL TARTRATE 25 MG TAB PO SCH ×2 (09:45→20:52)
--- NOTE | 2017-01-04 09:48 | HHI.PR ---
Subjective Remarks Follow-up for shortness of breath Per patient shortness of breath is about the same, still diuresing a lot, bilateral lower extremity edema improved significantly, still with mild chest pain on deep inhalation, no lower extremity tenderness. Objective Vitals Vital Signs Date Time Temp Pulse Resp B/P (MAP) Pulse Ox O2 Delivery O2 Flow Rate FiO2 01/04/17 09:42 97 Nasal Cannula 5.00 01/04/17 06:00 73 01/04/17 05:00 70 01/04/17 04:07 92 Nasal Cannula 5.00 01/04/17 04:00 66 01/04/17 03:31 97.7 65 20 144/72 (96) 93 01/04/17 03:00 65 01/04/17 02:00 64 01/04/17 01:00 66 01/04/17 00:00 70 01/03/17 23:00 70 01/03/17 23:00 98.1 71 20 152/71 (98) 90 01/03/17 22:00 70 01/03/17 21:51 95 Nasal Cannula 5.00 01/03/17 21:01 97.8 75 18 145/80 (101) 96 01/03/17 21:00 74 01/03/17 20:00 72 01/03/17 19:00 74 01/03/17 18:00 76 01/03/17 17:00 72 01/03/17 16:51 72 01/03/17 15:00 98.0 72 20 138/63 (88) 90 01/03/17 15:00 74 01/03/17 14:00 78 01/03/17 13:35 98.0 75 20 147/63 (91) 90 01/03/17 13:00 73 01/03/17 12:00 73 01/03/17 11:19 67 01/03/17 11:00 98.2 67 20 140/68 (92) 96 01/03/17 10:07 93 Nasal Cannula 5.00 01/03/17 10:00 76 I/O 01/03/17 01/03/17 01/03/17 01/04/17 01/04/17 01/04/17 07:00 15:00 23:00 07:00 15:00 23:00 Intake Total 240 ml 240 ml 720 ml Output Total 400 ml 250 ml Balance -160 ml 240 ml 470 ml Intake Oral 240 ml 240 ml 720 ml Output Urine Total 400 ml 250 ml # Bowel Movements 2 2 Result Diagram: 01/04/17 0607 01/04/17 0607 Imaging Last Impressions Thoracentesis Ultrasound 01/03/17 0000 Signed Impressions: Service Date/Time: Tuesday, January 03, 2017 13:18 - CONCLUSION: Uncomplicated ultrasound guided right thoracentesis with removal of 800 cc of clear yellow fluid. Quentin Roman MD Chest X-Ray 01/03/17 0000 Signed Impressions: Service Date/Time: Tuesday, January 03, 2017 14:09 - CONCLUSION: 1. Resolution of the right pleural effusion. No pneumothorax is present. 2. Persistent small left basilar opacity likely representing a very small pleural effusion. Quentin Roman MD Chest Ultrasound 01/02/17 0000 Signed Impressions: Service Date/Time: Monday, January 02, 2017 13:36 - CONCLUSION: There is a small to moderate size simple appearing right pleural effusion. No geovani was performed. Quentin Roman MD Objective Remarks GENERAL: NC tolerating it well. Not in distress. CARDIOVASCULAR: Regular rate and rhythm without murmurs RESPIRATORY: decreased air movement, decreased breath sounds bilaterally. GASTROINTESTINAL: Abdomen soft, non-tender, nondistended. No guarding. MUSCULOSKELETAL: Extremities with 1+ edema. No calf tenderness. Negative Homans sign bilaterally. NEUROLOGICAL: Awake and alert, oriented 3, no focal deficits. Cranial nerves II through XII intact. Motor and sensory grossly within normal limits. A/P Assessment and Plan This is a 71-year-old female admitted for chest pain and shortness of breath with recent history of hospitalizations. Acute on chronic congestive heart failure exacerbation, nstemi/ trop elevation -Status post paracentesis, likely transudative Cardiology and pulmonary following. On Lasix, switch to torsemide tomorrow. Follow BMP. Troponin elevation could be demand mediated. Start hydralazine and Isordil per cardiology. Shortness of breath is better. Pleural fluid studies negative so far. Ejection fraction 40-45%. Follow BMP. Continue aspirin, Plavix, Norvasc and metoprolol. Still with chest pain-Need to r/o PE with recent hospitalization, still on full dose of Lovenox, check CT angiography, patient had angiography before. On Plavix. COPD-not in exacerbation Hypertension-continue Norvasc, metoprolol, statin. DVT prophylaxis: On Lovenox Discharge Planning Possible discharge tomorrow after cleared by pulmonary and cardiology. And if CTA negative Gilma Woodson MD Jan 04, 2017 09:48
[2017-01-04] MEDS ORDERED: IOHEXOL 350 MG/ML 10 ML VIAL (for RAD DIAG) IVCONTRAST ONE (12:37)
--- NOTE | 2017-01-04 12:47 | RADRPT ---
EXAM DATE/TIME: 01/04/2017 12:06 [place] COMPARISON: No previous studies available for comparison. INDICATIONS : Short of breath bilateral lower exremity edema. IV CONTRAST: 50 cc Omnipaque 350 (iohexol) IV RADIATION DOSE: 10.27 CTDIvol (mGy) MEDICAL HISTORY : Cardiovascular disease. Hypertension. Chronic obstructive pulmonary disease. SURGICAL HISTORY : CABG Hysterectomy.Coronary artery stent.Appy lap band ENCOUNTER: Initial ACUITY: 2 days PAIN SCALE: 3/10 LOCATION: chest TECHNIQUE: Volumetric scanning of the chest was performed using a pulmonary embolism protocol MIP images were re constructed. Using automated exposure control and adjustment of the mA and/or kV according to patien t size, radiation dose was kept as low as reasonably achievable to obtain optimal diagnostic quality images. DICOM format image data is available electronically for review and comparison. Follow-up recommendations for detected pulmonary nodules are based at a minimum on nodule size and pa tient risk factors according to Fleischner Society Guidelines. FINDINGS: PULMONARY ARTERIES: No filling defects are seen in the pulmonary arteries through the segmental level. LUNGS: Baseline emphysema. Perihilar and basilar interstitial changes and bilateral effusions with adjacent compressive atelectasis, left worse than right. PLEURAE: Bilateral pleural effusions, left greater than right MEDIASTINUM: Dense coronary calcifications. Mild central mediastinal elena enlargement which is nonspecific MUSCULOSKELETAL: Within normal limits for patient age. MISCELLANEOUS: Lap band implement noted. CONCLUSION: No evidence of pulmonary embolism Quentin Eddy MD on January 04, 2017 at 12:41 Board Certified Radiologist. This report was verified electronically.
[2017-01-04] MEDS: ISOSORBIDE DINITRATE 10 MG TAB PO SCH ×2 (13:57→20:52)
[2017-01-04] MEDS: hydrALAZINE HCL 10 MG TAB PO SCH ×2 (13:57→20:48)
[2017-01-04] MEDS: TIOTROPIUM BROMIDE 18 MCG INH INH SCH (13:57)
--- NOTE | 2017-01-04 18:12 | HHI.PR ---
Subjective Remarks 71 YOWF with CAD, multiple stents, CHF Pl eff Had Thoracentesisi Breathing better No Fever Comfortable, sleeping Cytology negative Objective Vital Signs Vital Signs Date Time Temp Pulse Resp B/P (MAP) Pulse Ox O2 Delivery O2 Flow Rate FiO2 01/04/17 09:42 97 Nasal Cannula 5.00 01/04/17 06:00 73 01/04/17 05:00 70 01/04/17 04:07 92 Nasal Cannula 5.00 01/04/17 04:00 66 01/04/17 03:31 97.7 65 20 144/72 (96) 93 01/04/17 03:00 65 01/04/17 02:00 64 01/04/17 01:00 66 01/04/17 00:00 70 01/03/17 23:00 70 01/03/17 23:00 98.1 71 20 152/71 (98) 90 01/03/17 22:00 70 01/03/17 21:51 95 Nasal Cannula 5.00 01/03/17 21:01 97.8 75 18 145/80 (101) 96 01/03/17 21:00 74 01/03/17 20:00 72 01/03/17 19:00 74 I/O 01/03/17 01/03/17 01/03/17 01/04/17 01/04/17 01/04/17 07:00 15:00 23:00 07:00 15:00 23:00 Intake Total 240 ml 240 ml 720 ml Output Total 400 ml 250 ml Balance -160 ml 240 ml 470 ml Intake Oral 240 ml 240 ml 720 ml Output Urine Total 400 ml 250 ml # Bowel Movements 2 2 Result Diagram: 01/04/1760601/04/17 0607 Objective Remarks GENERAL: MBMN WF, mild sob SKIN: Warm and dry. HEAD: Normocephalic. EYES: No scleral icterus. No injection or drainage. NECK: Supple, trachea midline. No JVD or lymphadenopathy. CARDIOVASCULAR: Regular rate and rhythm without murmurs, gallops, or rubs. RESPIRATORY: Breath sounds equal bilaterally. No accessory muscle use. GASTROINTESTINAL: Abdomen soft, non-tender, nondistended. MUSCULOSKELETAL: No cyanosis, or edema. BACK: Nontender without obvious deformity. No CVA tenderness. A/P Assessment and Plan Pleural effusion, s/p TC CHF COPD CAD H/O Nicotine use PLAN: Diurease Supplement 02 Plavix 75 mg daily Cytology Negative Jayy Bhakta MD Jan 04, 2017 18:12
[2017-01-04] MEDS: ATORVASTATIN 80 MG TAB PO SCH (20:48)
[2017-01-05] VITALS (26 sets, daily range): BP systolic 135–155; BP diastolic 51–84; PULSE 68–86; RESP 20–26; TEMP 96.8–98.8; O2SAT 91–97
[2017-01-05 02:45] LABS: AUTOMATED NEUTROPHIL # 3.4 TH/MM3 (1.8-7.7); BASOPHIL % 0.7 % (0.0-2.0); EOSINOPHIL % 0.7 % (0.0-4.0); HEMO FLAGS DIFF FINAL; LYMPH % 13.2 % (9.0-44.0); LYMPHOCYTE # 0.6 TH/MM3 (1.0-4.8); MEAN CELL VOLUME 88.1 FL (80.0-100.0); MEAN CORPUSCULAR HEMOGLOBIN 29.3 PG (27.0-34.0); MEAN CORPUSCULAR HGB CONC 33.2 % (32.0-36.0); MONO % 7.3 % (0.0-8.0); NEUT % 78.1 % (16.0-70.0); PLATELET COUNT 122 TH/MM3 (150-450); RED BLOOD COUNT 3.17 MIL/MM3 (4.00-5.30); RED CELL DISTRIBUTION WIDTH 15.7 % (11.6-17.2); WHITE BLOOD COUNT 4.4 TH/MM3 (4.0-11.0)
[2017-01-05 03:00] LABS: BICARBONATE 36.1 MEQ/L (21.0-32.0); POTASSIUM 4.5 MEQ/L (3.5-5.1)
[2017-01-05] MEDS: RESP: ALBUTEROL 2.5 MG/IPRATROPIUM 0.5 MG NEB (SCH) NEB ×3 (03:05→18:56)
[2017-01-05] MEDS: hydrALAZINE HCL 10 MG TAB PO SCH ×3 (05:40→21:21)
[2017-01-05] MEDS: ALPRAZolam 0.5 MG TAB PO PRN ×3 (05:40→21:59)
[2017-01-05] MEDS: ISOSORBIDE DINITRATE 10 MG TAB PO SCH ×3 (05:40→21:21)
--- NOTE | 2017-01-05 07:33 | HHI.PR ---
Subjective Remarks Had a BM and was bloody last night. Says she has no pain in her abdomen. No nausea or vomiting. No fever or chills. Feels chest is congested , feels tired and sob is not improved much. Not much cough. Objective Vitals Vital Signs Date Time Temp Pulse Resp B/P (MAP) Pulse Ox O2 Delivery O2 Flow Rate FiO2 01/05/17 05:00 74 01/05/17 04:00 96.9 70 22 145/63 (90) 97 01/05/17 04:00 71 01/05/17 03:20 Bi-Pap 50 01/05/17 03:15 96 50 01/05/17 03:00 74 01/05/17 02:00 68 01/05/17 01:00 68 01/05/17 00:00 69 01/05/17 00:00 97.6 71 26 139/51 (80) 93 01/04/17 23:00 68 01/04/17 22:00 66 01/04/17 21:00 76 01/04/17 20:54 95 Nasal Cannula 5.00 01/04/17 20:00 Nasal Cannula 6.00 Humidified 01/04/17 20:00 98.0 78 24 157/68 (97) 96 01/04/17 20:00 73 01/04/17 19:00 72 01/04/17 18:00 68 01/04/17 17:00 62 01/04/17 16:00 62 01/04/17 15:30 98.3 62 20 122/63 (82) 96 01/04/17 15:00 61 01/04/17 14:00 62 01/04/17 11:23 98.2 76 24 153/70 (97) 91 01/04/17 11:00 73 01/04/17 10:00 76 01/04/17 09:42 97 Nasal Cannula 5.00 01/04/17 09:00 80 01/04/17 08:56 98.2 80 22 162/67 (98) 87 01/04/17 08:00 74 I/O 01/04/17 01/04/17 01/04/17 01/05/17 01/05/17 01/05/17 07:00 15:00 23:00 07:00 15:00 23:00 Intake Total 720 ml 360 ml 360 ml Output Total 250 ml 750 ml 1075 ml Balance 470 ml -390 ml -715 ml Intake Oral 720 ml 360 ml 360 ml Output Urine Total 250 ml 750 ml 1075 ml # Bowel Movements 2 1 4 Result Diagram: 01/05/17 0234 01/05/17 [address] Angiography 01/04/17 0000 Signed Impressions: Service Date/Time: December 12:06 - CONCLUSION: No evidence of pulmonary embolism Quentin Eddy MD Thoracentesis Ultrasound 01/03/17 0000 Signed Impressions: Service Date/Time: Tuesday, January 03, 2017 13:18 - CONCLUSION: Uncomplicated ultrasound guided right thoracentesis with removal of 800 cc of clear yellow fluid. Quentin Roman MD Chest X-Ray 01/03/17 0000 Signed Impressions: Service Date/Time: Tuesday, January 03, 2017 14:09 - CONCLUSION: 1. Resolution of the right pleural effusion. No pneumothorax is present. 2. Persistent small left basilar opacity likely representing a very small pleural effusion. Quentin Roman MD Chest Ultrasound 01/02/17 0000 Signed Impressions: Service Date/Time: Monday, January 02, 2017 13:36 - CONCLUSION: There is a small to moderate size simple appearing right pleural effusion. No geovani was performed. Quentin Roman MD Objective Remarks GENERAL: 71 yo F , well nourished well developed, appears in nad. CARDIOVASCULAR: Regular rate and rhythm. RESPIRATORY: Decreased breath sounds. No wheezing. No accessory muscle use. GASTROINTESTINAL: Abdomen soft, non-tender, nondistended. Hepatic and splenic margins not palpable. MUSCULOSKELETAL: Extremities without clubbing, cyanosis. +1 bilateral LE edema. No obvious deformities. NEUROLOGICAL: Awake and alert. No obvious cranial nerve deficits. Motor grossly within normal limits. Five out of 5 muscle strength in the arms and legs. Normal speech. PSYCHIATRIC: Appropriate mood and affect; insight and judgment normal. A/P Assessment and Plan This is a 71-year-old female admitted for chest pain and shortness of breath with recent history of hospitalizations. Acute on chronic congestive heart failure exacerbation, NSTEMI/ trop elevation -Status post paracentesis, likely transudative Cardiology and pulmonary following. On Lasix, switch to torsemide tomorrow. Follow BMP. Troponin elevation could be demand mediated. Start hydralazine and Isordil per cardiology. Shortness of breath is better. Pleural fluid studies negative so far. Ejection fraction 40-45%. Follow BMP. Continue aspirin, Plavix, Norvasc and metoprolol. Still with chest pain-Need to r/o PE with recent hospitalization, still on full dose of Lovenox, check CT angiography, patient had angiography before. On Plavix. COPD-not in exacerbation Hypertension-continue Norvasc, metoprolol, statin. DVT prophylaxis: On Lovenox Discharge Planning Possible discharge tomorrow after cleared by pulmonary and cardiology. And if CTA negative Discussed with the patient, nurse. Jojo William MD Jan 05, 2017 07:33
[2017-01-05] MEDS: ISOSORBIDE MONONITRATE 30 MG TAB PO SCH (09:00)
[2017-01-05] MEDS: CHOLESTYRAMINE 4 GM PACKET PO SCH ×2 (09:00→20:14)
[2017-01-05] MEDS: ASPIRIN EC 81 MG TABEC PO SCH (09:00)
[2017-01-05] MEDS: amLODIPine BESYLATE 5 MG TAB PO SCH ×2 (09:00→20:13)
[2017-01-05] MEDS: POTASSIUM CHLORIDE 20 MEQ CONTROLLED RELEASE TAB PO SCH ×3 (09:00→18:35)
[2017-01-05] MEDS: METOPROLOL TARTRATE 25 MG TAB PO SCH ×2 (09:00→20:13)
[2017-01-05] MEDS: SODIUM CHLORIDE 0.9% FLUSH 10 ML FLUSH IV FLUSH SCH ×2 (09:00→20:13)
[2017-01-05] MEDS: FLUoxetine HCL 20 MG CAP PO SCH ×2 (09:00→20:13)
[2017-01-05] MEDS: FUROSEMIDE 40 MG/4 ML VIAL IV PUSH SCH ×2 (09:00→18:35)
[2017-01-05] MEDS: CLOPIDOGREL 75 MG TAB PO SCH (09:00)
[2017-01-05] MEDS: DOXYCYCLINE HYCLATE 100 MG TAB PO SCH ×2 (09:00→20:13)
--- NOTE | 2017-01-05 09:13 | PD.CARD.PN ---
Subjective Subjective Remarks Still not breathing well. Had to go on biPaP last night Objective Medications Current Medications Medications (Trade) Dose Ordered Sig/Samy Route Start Time Stop Time Status Last Admin (NS Flush) 2 ml UNSCH PRN IV FLUSH 01/01/17 18:30 (NS Flush) 2 ml BID IV FLUSH 01/01/17 21:00 01/04/17 20:49 (Narcan Inj) 0.4 mg UNSCH PRN IV PUSH 01/01/17 18:30 (Lasix Inj) 40 mg BID@18 IV PUSH 01/02/17 09:00 01/04/17 18:39 (Lovenox Inj) 80 mg Q12H SQ 01/01/17 20:00 Future Hold 01/04/17 20:49 (Xanax) 0.5 mg Q8H PRN PO 01/01/17 19:45 01/05/17 05:40 (Norvasc) 5 mg BID PO 01/01/17 21:00 01/04/17 20:48 (Ecotrin Ec) 81 mg DAILY PO 01/02/17 09:00 01/04/17 09:24 (Lipitor) 80 mg HS PO 01/01/17 21:00 01/04/17 20:48 (Questran 4 Gm Pkt) 4 gm Q12HR PO 01/01/17 21:00 01/04/17 20:51 (Plavix) 75 mg DAILY PO 01/02/17 09:00 01/04/17 09:24 (Vibratab) 100 mg BID PO 01/01/17 21:00 01/04/17 20:48 (PROzac) 20 mg BID PO 01/01/17 21:00 01/04/17 20:48 ([place] 5-325 Mg) 1 tab Q6H PRN PO 01/01/17 19:45 01/04/17 09:48 (Duoneb Neb) 1 ampule Q6HR WHILE AWAKE NEB NEB 01/01/17 20:00 01/04/17 20:54 (Imdur) 30 mg DAILY PO 01/02/17 09:00 01/04/17 09:23 (Lopressor) 75 mg BID PO 01/01/17 21:00 01/04/17 20:52 (Restoril) 15 mg HS PRN PO 01/01/17 19:45 01/02/17 23:34 (Spiriva Inh) 18 mcg DAILY INH 01/01/17 21:00 01/04/17 13:57 (Duoneb Neb) 1 ampule Q6HR NEB NEB 01/01/17 22:00 01/05/17 03:05 (Duoneb Neb) 1 ampule Q2HR NEB PRN NEB 01/01/17 19:45 (Nitroglycerin 2% Oint) 0.5 inch Q6HR PRN TOPICAL 01/02/17 14:15 (KCl) 20 meq TID PO 01/04/17 09:00 01/04/17 18:39 (Apresoline) 10 mg Q8HR PO 01/04/17 14:00 01/05/17 05:40 (Isordil) 10 mg Q8HR PO 01/04/17 14:00 01/05/17 05:40 (Protonix Inj) 40 mg Q12H IV PUSH 01/05/17 08:45 UNV Vital Signs / I&O Vital Signs Date Time Temp Pulse Resp B/P (MAP) Pulse Ox O2 Delivery O2 Flow Rate FiO2 01/05/17 07:15 97.3 78 20 135/67 (89) 91 01/05/17 05:00 74 01/05/17 04:00 96.9 70 22 145/63 (90) 97 01/05/17 04:00 71 01/05/17 03:20 Bi-Pap 50 01/05/17 03:15 96 50 01/05/17 03:00 74 01/05/17 02:00 68 01/05/17 01:00 68 01/05/17 00:00 69 01/05/17 00:00 97.6 71 26 139/51 (80) 93 01/04/17 23:00 68 01/04/17 22:00 66 01/04/17 21:00 76 01/04/17 20:54 95 Nasal Cannula 5.00 01/04/17 20:00 Nasal Cannula 6.00 Humidified 01/04/17 20:00 98.0 78 24 157/68 (97) 96 01/04/17 20:00 73 01/04/17 19:00 72 01/04/17 18:00 68 01/04/17 17:00 62 01/04/17 16:00 62 01/04/17 15:30 98.3 62 20 122/63 (82) 96 01/04/17 15:00 61 01/04/17 14:00 62 01/04/17 11:23 98.2 76 24 153/70 (97) 91 01/04/17 11:00 73 01/04/17 10:00 76 01/04/17 09:42 97 Nasal Cannula 5.00 I/O 01/04/17 01/04/17 01/04/17 01/05/17 01/05/17 01/05/17 07:00 15:00 23:00 07:00 15:00 23:00 Intake Total 720 ml 360 ml 360 ml Output Total 250 ml 750 ml 1075 ml Balance 470 ml -390 ml -715 ml Intake Oral 720 ml 360 ml 360 ml Output Urine Total 250 ml 750 ml 1075 ml # Bowel Movements 2 1 4 Physical Exam Alert Chest severely diminished throughout CV S1S2 RRR Edema trace CTA negative for PE Enoxaparin stopped for blood in stool Laboratory Laboratory Tests Test 01/05/17 02:34 White Blood Count 4.4 TH/MM3 Red Blood Count 3.17 MIL/MM3 Hemoglobin 9.3 GM/DL Hematocrit 28.0 % Mean Corpuscular Volume 88.1 FL Mean Corpuscular Hemoglobin 29.3 PG Mean Corpuscular Hemoglobin Concent 33.2 % Red Cell Distribution Width 15.7 % Platelet Count 122 TH/MM3 Mean Platelet Volume 9.1 FL Neutrophils (%) (Auto) 78.1 % Lymphocytes (%) (Auto) 13.2 % Monocytes (%) (Auto) 7.3 % Eosinophils (%) (Auto) 0.7 % Basophils (%) (Auto) 0.7 % Neutrophils # (Auto) 3.4 TH/MM3 Lymphocytes # (Auto) 0.6 TH/MM3 Monocytes # (Auto) 0.3 TH/MM3 Eosinophils # (Auto) 0.0 TH/MM3 Basophils # (Auto) 0.0 TH/MM3 CBC Comment DIFF FINAL Differential Comment Blood Urea Nitrogen 17 MG/DL Creatinine 0.95 MG/DL Random Glucose 104 MG/DL Calcium Level 8.0 MG/DL Sodium Level 136 MEQ/L Potassium Level 4.5 MEQ/L Chloride Level 97 MEQ/L Carbon Dioxide Level 36.1 MEQ/L Anion Gap 3 MEQ/L Estimat Glomerular Filtration Rate 58 ML/MIN Imaging Last [address] Angiography 01/04/17 0000 Signed Impressions: Service Date/Time: December 12:06 - CONCLUSION: No evidence of pulmonary embolism Quentin Eddy MD Assessment and Plan Problem List: (1) Pleural effusion ICD Codes: J90 - Pleural effusion, not elsewhere classified (2) CHF exacerbation ICD Codes: I50.9 - Heart failure, unspecified Status: Acute (3) Hypertension, benign ICD Codes: I10 - Hypertension, benign Status: Chronic (4) COPD with acute exacerbation ICD Codes: J44.1 - Chronic obstructive pulmonary disease with (acute) exacerbation Status: Acute (5) CAD (coronary artery disease) ICD Codes: I25.10 - CAD (coronary artery disease) Status: Chronic (6) Hematochezia ICD Codes: K92.1 - Melena Plan: per primary service Assessment and Plan Change to PO torsemide 20mg daily/ KCL 20meq qd once more stable Olegario Calderon MD Jan 05, 2017 09:13
[2017-01-05] MEDS: PANTOPRAZOLE SODIUM 40 MG VIAL IV PUSH SCH ×2 (10:00→21:21)
--- NOTE | 2017-01-05 10:56 | PD.CONS ---
HPI History of Present Illness This is a 71 year old female with COPD, CHF, valve replacement who presented with SOB and extremity swelling. GI has been consulted for rectal bleeding. Per nursing report she passed some clots in stool last night. Current RN has not visualized any blood and reports that she had a gelatinous mucusy dark stool today. Pt was pos for c diff 12/19. She also is on plavix, ASA. Admits some abd cramping. Denies n/v. Does not know when last colonoscopy and EGD were but denies any prior hx bleeding. Limited historian. Obtained some hx from pt's sister who said she has noticed an over all deterioration in pts status, particularly her breathing difficulty. (Pascale Ruiz) PFSH Past Medical History CAD status post previous AK with prior CABG and cardiac stent implants 11 COPD with ongoing tobaccoism- ON HOME OXYGEN Hypertension Dyslipidemia Depression Past Surgical History CABG 5 vessels Cardiac stent implant 11 LAP-BAND surgery Hysterectomy Bladder suspension surgery Benign breast lumpectomy (Pascale Ruiz) Coded Allergies: lisinopril (Unverified Allergy, Severe, Cough, 01/01/17) PERSISTENT COUGH losartan (Verified Allergy, Severe, Hives, 01/01/17) codeine (Unverified Allergy, Mild, NAUSEA, 01/01/17) PATIENT STATES SHE IS NOT ALLERGIC TO MEDICATION cephalexin (Unverified Allergy, Unknown, Nausea/Vomiting, 01/01/17) fluticasone (Unverified Allergy, Unknown, 01/01/17) THROAT SWELLING fluticasone furoate (Unverified Allergy, Unknown, 01/01/17) THROAT SWELLING salmeterol (Unverified Allergy, Unknown, 01/01/17) THROAT SWELLING azithromycin (Verified Adverse Reaction, Intermediate, DIARRHEA, 01/01/17) Family History mom - cad , copd father- cad Social History quit smoking a month ago no etoh or drugs lives by self, sister is downstairs has not driven past one month (Pascale Ruiz) Review of Systems Constitutional: COMPLAINS OF: Fatigue, DENIES: Fever Eyes: DENIES: Blurred vision Ears, nose, mouth, throat: DENIES: Hearing loss Respiratory: DENIES: Hemoptysis Cardiovascular: DENIES: Chest pain Gastrointestinal: COMPLAINS OF: Abdominal pain, Bloody stools, Diarrhea, DENIES : Black stools, Nausea, Vomiting Genitourinary: DENIES: Hematuria Musculoskeletal: DENIES: Joint Swelling Hematologic/lymphatic: DENIES: Lymphadenopathy Neurologic: DENIES: Paresthesias Psychiatric: COMPLAINS OF: Anxiety (Pascale Ruiz) GI Exam Vitals I&O Vital Signs Date Time Temp Pulse Resp B/P (MAP) Pulse Ox O2 Delivery O2 Flow Rate FiO2 01/05/17 09:34 96 Nasal Cannula 4.00 01/05/17 07:15 97.3 78 20 135/67 (89) 91 01/05/17 05:00 74 01/05/17 04:00 96.9 70 22 145/63 (90) 97 01/05/17 04:00 71 01/05/17 03:20 Bi-Pap 50 01/05/17 03:15 96 50 01/05/17 03:00 74 01/05/17 02:00 68 01/05/17 01:00 68 01/05/17 00:00 69 01/05/17 00:00 97.6 71 26 139/51 (80) 93 01/04/17 23:00 68 01/04/17 22:00 66 01/04/17 21:00 76 01/04/17 20:54 95 Nasal Cannula 5.00 01/04/17 20:00 Nasal Cannula 6.00 Humidified 01/04/17 20:00 98.0 78 24 157/68 (97) 96 01/04/17 20:00 73 01/04/17 19:00 72 01/04/17 18:00 68 01/04/17 17:00 62 01/04/17 16:00 62 01/04/17 15:30 98.3 62 20 122/63 (82) 96 01/04/17 15:00 61 01/04/17 14:00 62 01/04/17 11:23 98.2 76 24 153/70 (97) 91 01/04/17 11:00 73 I/O 01/04/17 01/04/17 01/04/17 01/05/17 01/05/17 01/05/17 07:00 15:00 23:00 07:00 15:00 23:00 Intake Total 720 ml 360 ml 360 ml Output Total 250 ml 750 ml 1075 ml Balance 470 ml -390 ml -715 ml Intake Oral 720 ml 360 ml 360 ml Output Urine Total 250 ml 750 ml 1075 ml # Bowel Movements 2 1 [address] Angiography 01/04/17 0000 Signed Impressions: Service Date/Time: December 12:06 - CONCLUSION: No evidence of pulmonary embolism Quentin Eddy MD Thoracentesis Ultrasound 01/03/17 0000 Signed Impressions: Service Date/Time: Tuesday, January 03, 2017 13:18 - CONCLUSION: Uncomplicated ultrasound guided right thoracentesis with removal of 800 cc of clear yellow fluid. Quentin Roman MD Chest X-Ray 01/03/17 0000 Signed Impressions: Service Date/Time: Tuesday, January 03, 2017 14:09 - CONCLUSION: 1. Resolution of the right pleural effusion. No pneumothorax is present. 2. Persistent small left basilar opacity likely representing a very small pleural effusion. Quentin Roman MD Chest Ultrasound 01/02/17 0000 Signed Impressions: Service Date/Time: Monday, January 02, 2017 13:36 - CONCLUSION: There is a small to moderate size simple appearing right pleural effusion. No geovani was performed. Quentin Roman MD Laboratory Test 01/05/17 02:34 White Blood Count 4.4 TH/MM3 Red Blood Count 3.17 MIL/MM3 Hemoglobin 9.3 GM/DL Hematocrit 28.0 % Mean Corpuscular Volume 88.1 FL Mean Corpuscular Hemoglobin 29.3 PG Mean Corpuscular Hemoglobin Concent 33.2 % Red Cell Distribution Width 15.7 % Platelet Count 122 TH/MM3 Mean Platelet Volume 9.1 FL Neutrophils (%) (Auto) 78.1 % Lymphocytes (%) (Auto) 13.2 % Monocytes (%) (Auto) 7.3 % Eosinophils (%) (Auto) 0.7 % Basophils (%) (Auto) 0.7 % Neutrophils # (Auto) 3.4 TH/MM3 Lymphocytes # (Auto) 0.6 TH/MM3 Monocytes # (Auto) 0.3 TH/MM3 Eosinophils # (Auto) 0.0 TH/MM3 Basophils # (Auto) 0.0 TH/MM3 CBC Comment DIFF FINAL Differential Comment Blood Urea Nitrogen 17 MG/DL Creatinine 0.95 MG/DL Random Glucose 104 MG/DL Calcium Level 8.0 MG/DL Sodium Level 136 MEQ/L Potassium Level 4.5 MEQ/L Chloride Level 97 MEQ/L Carbon Dioxide Level 36.1 MEQ/L Anion Gap 3 MEQ/L Estimat Glomerular Filtration Rate 58 ML/MIN Date/Time Source Procedure Growth Status 01/03/17 14:00 Fluid Pleural Fluid Fungal Smear - Final NO FUNGAL ELEMENTS SEEN. Resulted 01/03/17 14:00 Fluid Pleural Fluid Fungal Culture Pending Resulted Physical Examination HEENT: PERRL; normocephalic; atraumatic; no jaundice. CHEST: CTA, diminished, SOB to conversation CARDIAC: RRR ABDOMEN: Soft, nondistended, diffusely TTP; no hepatosplenomegaly; bowel sounds are present in all four quadrants. EXTREMITIES: No clubbing, cyanosis, or edema. SKIN: Normal; no rash; no jaundice. 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 Recent hx c diff, 12/19 pos epid 027. cannot recall details about previous EGD/colonoscopy. on plavix, asa. Rn reports she is also oozing blood from previous injection sites - CHF, NSTEMI, COPD per primary , pulmonary, cardiology following PLAN - consider holding plavix, ASA - EGD/colonoscopy when pt more stable and with pulmonary and cardiac clearance - monitor HH - transfuse as needed - supportive care - further recs to follow This pt seen by myself and Dr Marsh (Pascale Ruiz) Physician Comments Seen and examined, plan as above. Will follow up with you, monitor clinically for bleeding and daily HH Thank you for the consult. (Kate Marsh MD) Pascale Ruiz Jan 05, 2017 10:56 Kate Marsh MD Jan 05, 2017 12:53
[2017-01-05] MEDS: TIOTROPIUM BROMIDE 18 MCG INH INH SCH (14:50)
--- NOTE | 2017-01-05 18:54 | HHI.PR ---
Subjective Remarks 71 YOWF with CAD, multiple stents, CHF Pl eff Breathing better No Fever Cytology negative Had rectal bleed, GI evaluating pt Objective Vital Signs Vital Signs Date Time Temp Pulse Resp B/P (MAP) Pulse Ox O2 Delivery O2 Flow Rate FiO2 01/05/17 09:34 96 Nasal Cannula 4.00 01/05/17 08:00 73 01/05/17 08:00 Nasal Cannula 6.00 Humidified 01/05/17 07:15 97.3 78 20 135/67 (89) 91 01/05/17 05:00 74 01/05/17 04:00 96.9 70 22 145/63 (90) 97 01/05/17 04:00 71 01/05/17 03:20 Bi-Pap 50 01/05/17 03:15 96 50 01/05/17 03:00 74 01/05/17 02:00 68 01/05/17 01:00 68 01/05/17 00:00 69 01/05/17 00:00 97.6 71 26 139/51 (80) 93 01/04/17 23:00 68 01/04/17 22:00 66 01/04/17 21:00 76 01/04/17 20:54 95 Nasal Cannula 5.00 01/04/17 20:00 Nasal Cannula 6.00 Humidified 01/04/17 20:00 98.0 78 24 157/68 (97) 96 01/04/17 20:00 73 01/04/17 19:00 72 I/O 01/04/17 01/04/17 01/04/17 01/05/17 01/05/17 01/05/17 07:00 15:00 23:00 07:00 15:00 23:00 Intake Total 720 ml 360 ml 360 ml Output Total 250 ml 750 ml 1075 ml 850 ml Balance 470 ml -390 ml -715 ml -850 ml Intake Oral 720 ml 360 ml 360 ml Output Urine Total 250 ml 750 ml 1075 ml 850 ml # Voids 0 # Bowel Movements 2 1 4 Result Diagram: 01/05/1723301/05/17233 Objective Remarks GENERAL: MBMN WF, mild sob SKIN: Warm and dry. HEAD: Normocephalic. EYES: No scleral icterus. No injection or drainage. NECK: Supple, trachea midline. No JVD or lymphadenopathy. CARDIOVASCULAR: Regular rate and rhythm without murmurs, gallops, or rubs. RESPIRATORY: Breath sounds equal bilaterally. No accessory muscle use. GASTROINTESTINAL: Abdomen soft, non-tender, nondistended. MUSCULOSKELETAL: No cyanosis, or edema. BACK: Nontender without obvious deformity. No CVA tenderness. A/P Assessment and Plan Pleural effusion, s/p TC CHF COPD CAD H/O Nicotine use PLAN: Diurease Supplement 02 Plavix 75 mg daily Cytology Negative GI Eval underway Jayy Bhakta MD Jan 05, 2017 18:54
[2017-01-05] MEDS: TEMAZEPAM 15 MG CAP PO PRN (20:12)
[2017-01-05] MEDS: ATORVASTATIN 80 MG TAB PO SCH (20:12)
[2017-01-06] VITALS (29 sets, daily range): BP systolic 126–151; BP diastolic 57–65; PULSE 65–92; RESP 18–20; TEMP 97.1–98.6; O2SAT 90–98
[2017-01-06] MEDS: ISOSORBIDE DINITRATE 10 MG TAB PO SCH ×3 (05:53→20:17)
[2017-01-06] MEDS: hydrALAZINE HCL 10 MG TAB PO SCH ×3 (05:53→20:24)
[2017-01-06] MEDS: ALPRAZolam 0.5 MG TAB PO PRN ×3 (05:53→21:26)
[2017-01-06 06:01] LABS: BICARBONATE 33.7 MEQ/L (21.0-32.0); POTASSIUM 4.2 MEQ/L (3.5-5.1)
[2017-01-06] MEDS: RESP: ALBUTEROL 2.5 MG/IPRATROPIUM 0.5 MG NEB (PRN) NEB ×2 (06:05→18:15)
[2017-01-06] MEDS: ASPIRIN EC 81 MG TABEC PO SCH (09:00)
[2017-01-06] MEDS: CLOPIDOGREL 75 MG TAB PO SCH (09:00)
--- NOTE | 2017-01-06 09:58 | HHI.GIFU ---
Subjective Remarks Followup for rectal bleeding. Patient is sitting up in chair using non rebreather. Dark stools noted overnight. (Tuyet Cordova) Objective Vitals I&O Vital Signs Date Time Temp Pulse Resp B/P (MAP) Pulse Ox O2 Delivery O2 Flow Rate FiO2 01/06/17 07:53 98.5 75 19 132/57 (82) 92 01/06/17 07:53 92 Venturi Mask 6.00 50 01/06/17 06:37 96 Non-Rebreather 15.00 100 01/06/17 06:00 74 01/06/17 05:00 72 01/06/17 04:00 98.5 68 18 151/64 (93) 96 01/06/17 04:00 Bi-Pap 01/06/17 04:00 68 01/06/17 03:00 65 01/06/17 02:00 71 01/06/17 01:00 69 01/06/17 00:00 70 01/06/17 00:00 Bi-Pap 01/06/17 00:00 98.6 70 20 145/64 (91) 95 01/05/17 23:00 74 01/05/17 22:03 96 50 01/05/17 22:00 77 01/05/17 21:00 73 01/05/17 20:00 76 01/05/17 20:00 98.1 76 20 155/72 (99) 94 01/05/17 20:00 Nasal Cannula 6.00 Humidified 01/05/17 18:56 96 Nasal Cannula 5.00 01/05/17 18:00 74 01/05/17 17:00 74 01/05/17 16:00 72 01/05/17 15:00 73 01/05/17 15:00 96.8 78 20 143/65 (91) 95 01/05/17 14:00 70 01/05/17 13:00 70 01/05/17 12:00 78 01/05/17 12:00 98.8 73 20 144/84 (104) 95 01/05/17 11:00 86 01/05/17 10:00 82 I/O 01/05/17 01/05/17 01/05/17 01/06/17 01/06/17 01/06/17 07:00 15:00 23:00 07:00 15:00 23:00 Intake Total 360 ml 480 ml Output Total 1075 ml 850 ml 950 ml Balance -715 ml -850 ml -470 ml Intake Oral 360 ml 480 ml Output Urine Total 1075 ml 850 ml 950 ml # Voids 0 # Bowel Movements 4 3 Laboratory Laboratory Tests Test 01/06/17 05:26 Blood Urea Nitrogen 16 Creatinine 0.98 Random Glucose 84 Calcium Level 8.1 Magnesium Level 2.0 Sodium Level 138 Potassium Level 4.2 Chloride Level 97 Carbon Dioxide Level 33.7 Anion Gap 7 Estimat Glomerular Filtration Rate 56 Date/Time Source Procedure Growth Status 01/03/17 14:00 Fluid Pleural Fluid Fungal Smear - Final NO FUNGAL ELEMENTS SEEN. Resulted 01/03/17 14:00 Fluid Pleural Fluid Fungal Culture Pending Resulted Imaging Last Impressions CT Angiography 01/04/17 0000 Signed Impressions: Service Date/Time: December 12:06 - CONCLUSION: No evidence of pulmonary embolism Quentin Eddy MD Thoracentesis Ultrasound 01/03/17 0000 Signed Impressions: Service Date/Time: Tuesday, January 03, 2017 13:18 - CONCLUSION: Uncomplicated ultrasound guided right thoracentesis with removal of 800 cc of clear yellow fluid. Quentin Roman MD Chest X-Ray 01/03/17 0000 Signed Impressions: Service Date/Time: Tuesday, January 03, 2017 14:09 - CONCLUSION: 1. Resolution of the right pleural effusion. No pneumothorax is present. 2. Persistent small left basilar opacity likely representing a very small pleural effusion. Quentin Roman MD Chest Ultrasound 01/02/17 0000 Signed Impressions: Service Date/Time: Monday, January 02, 2017 13:36 - CONCLUSION: There is a small to moderate size simple appearing right pleural effusion. No geovani was performed. Quentin Roman MD Physical Exam HEENT: Normocephalic; atraumatic; no jaundice. NECK: Neck is supple. CHEST: CTA, diminished. On nonrebreather. CARDIAC: RRR ABDOMEN: Soft, nondistended, nontender; no hepatosplenomegaly; bowel sounds are present. EXTREMITIES: No clubbing, cyanosis, or edema. SKIN: Normal; no rash; no jaundice. LCPC: No focal deficits; alert and oriented x 3. (Tuyet Cordova) Assessment and Plan Plan ASSESSMENT - Loose stool, rectal bleeding, patient had clots and bloody stool 01/04, on stool noted to be dark brown, with mucus, gelatinous stool. Patient was also oozing blood from previous injection sites. Recent hx C. Diff, 12/19 pos epid 027. Patient unable to recall details about previous EGD/colonoscopy. On Plavix, ASA. Stool noted to be dark brown overnight. No bright red blood noted in stool. HH 9.05/23 (01/05). INR 1.1. - COPD, exacerbation. On BiPAP at night. Pulmonology following. - CHF, NSTEMI, per primary. Cardiology following PLAN - Consider holding Plavix and ASA - Protonix IV BID - Hemoccult stool - EGD/colonoscopy when pt more stable and with pulmonary and cardiac clearance - Monitor HH, transfuse as needed - Supportive care - Further recommendations to follow based on results of above. Patient seen and examined by Dr. Marsh and myself and this note is written on his behalf. (Tuyet Cordova) Physician Comments Seen and examined, plan as above. Will follow up with you pending cardio-pulmonary workup. (Kate Marsh MD) Tuyet Cordova Jan 06, 2017 09:58 Kate Marsh MD Jan 06, 2017 11:07
[2017-01-06 10:03] LABS: AUTOMATED NEUTROPHIL # 2.9 TH/MM3 (1.8-7.7); BASOPHIL % 0.5 % (0.0-2.0); EOSINOPHIL % 0.4 % (0.0-4.0); HEMATOCRIT 28.2 % (35.0-46.0); HEMO FLAGS DIFF FINAL; LYMPH % 16.5 % (9.0-44.0); LYMPHOCYTE # 0.6 TH/MM3 (1.0-4.8); MEAN CELL VOLUME 88.2 FL (80.0-100.0); MEAN CORPUSCULAR HEMOGLOBIN 29.6 PG (27.0-34.0); MEAN CORPUSCULAR HGB CONC 33.5 % (32.0-36.0); MONO % 4.9 % (0.0-8.0); NEUT % 77.7 % (16.0-70.0); PLATELET COUNT 111 TH/MM3 (150-450); RED BLOOD COUNT 3.19 MIL/MM3 (4.00-5.30); RED CELL DISTRIBUTION WIDTH 15.9 % (11.6-17.2); WHITE BLOOD COUNT 3.8 TH/MM3 (4.0-11.0)
[2017-01-06] MEDS: TIOTROPIUM BROMIDE 18 MCG INH INH SCH (10:18)
[2017-01-06] MEDS: PANTOPRAZOLE SODIUM 40 MG VIAL IV PUSH SCH ×2 (10:20→20:24)
[2017-01-06] MEDS: SODIUM CHLORIDE 0.9% FLUSH 10 ML FLUSH IV FLUSH SCH ×2 (10:21→20:18)
[2017-01-06] MEDS: FUROSEMIDE 40 MG/4 ML VIAL IV PUSH SCH ×2 (10:21→17:45)
[2017-01-06] MEDS: ISOSORBIDE MONONITRATE 30 MG TAB PO SCH (10:22)
[2017-01-06] MEDS: DOXYCYCLINE HYCLATE 100 MG TAB PO SCH ×2 (10:22→20:18)
[2017-01-06] MEDS: FLUoxetine HCL 20 MG CAP PO SCH ×2 (10:22→20:17)
[2017-01-06] MEDS: METOPROLOL TARTRATE 25 MG TAB PO SCH ×2 (10:22→20:17)
[2017-01-06] MEDS: POTASSIUM CHLORIDE 20 MEQ CONTROLLED RELEASE TAB PO SCH ×3 (10:22→17:52)
[2017-01-06] MEDS: amLODIPine BESYLATE 5 MG TAB PO SCH ×2 (10:23→20:17)
[2017-01-06] MEDS: CHOLESTYRAMINE 4 GM PACKET PO SCH ×2 (10:24→20:17)
--- NOTE | 2017-01-06 10:54 | HHI.PR ---
Subjective Remarks Patient states that shortness of breath continues unchanged. She reports continued rectal bleeding. Denies any abdominal pain. Continues with vague left-sided chest pain that worsened. Objective Vital Signs Date Time Temp Pulse Resp B/P (MAP) Pulse Ox O2 Delivery O2 Flow Rate FiO2 01/06/17 07:53 98.5 75 19 132/57 (82) 92 01/06/17 07:53 92 Venturi Mask 6.00 50 01/06/17 06:37 96 Non-Rebreather 15.00 100 01/06/17 06:00 74 01/06/17 05:00 72 01/06/17 04:00 98.5 68 18 151/64 (93) 96 01/06/17 04:00 Bi-Pap 01/06/17 04:00 68 01/06/17 03:00 65 01/06/17 02:00 71 01/06/17 01:00 69 01/06/17 00:00 70 01/06/17 00:00 Bi-Pap 01/06/17 00:00 98.6 70 20 145/64 (91) 95 01/05/17 23:00 74 01/05/17 22:03 96 50 01/05/17 22:00 77 01/05/17 21:00 73 01/05/17 20:00 76 01/05/17 20:00 98.1 76 20 155/72 (99) 94 01/05/17 20:00 Nasal Cannula 6.00 Humidified 01/05/17 18:56 96 Nasal Cannula 5.00 01/05/17 18:00 74 01/05/17 17:00 74 01/05/17 16:00 72 01/05/17 15:00 73 01/05/17 15:00 96.8 78 20 143/65 (91) 95 01/05/17 14:00 70 01/05/17 13:00 70 01/05/17 12:00 78 01/05/17 12:00 98.8 73 20 144/84 (104) 95 01/05/17 11:00 86 I/O 01/05/17 01/05/17 01/05/17 01/06/17 01/06/17 01/06/17 07:00 15:00 23:00 07:00 15:00 23:00 Intake Total 360 ml 480 ml Output Total 1075 ml 850 ml 950 ml Balance -715 ml -850 ml -470 ml Intake Oral 360 ml 480 ml Output Urine Total 1075 ml 850 ml 950 ml # Voids 0 # Bowel Movements 4 3 Result Diagram: 01/06/17 0918 01/06/17 0526 Objective Remarks GENERAL: Patient sitting up in chair. Appears with slightly labored breathing. Alert and oriented SKIN: Warm and dry. HEAD: Normocephalic. EYES: No scleral icterus. No injection or drainage. NECK: Supple, trachea midline. Patient with JVD sitting bolt upright. CARDIOVASCULAR: Regular rate and rhythm without murmurs, gallops, or rubs. RESPIRATORY: Breath sounds equal bilaterally. No accessory muscle use. GASTROINTESTINAL: Abdomen soft, non-tender, nondistended. MUSCULOSKELETAL: No cyanosis. +1 peripheral edema. Bilateral lower extremities. BACK: Nontender without obvious deformity. No CVA tenderness. A/P Assessment and Plan This is a 71-year-old female admitted for chest pain and shortness of breath with recent history of hospitalizations. //Acute on chronic congestive heart failure exacerbation, NSTEMI/ trop elevation -Status post paracentesis, likely transudative Cardiology and pulmonary following. On Lasix, switch to torsemide tomorrow. Follow BMP. Troponin elevation could be demand mediated. Start hydralazine and Isordil per cardiology. Shortness of breath is better. Pleural fluid studies negative so far. Ejection fraction 40-45%. Follow BMP. Continue aspirin, Plavix, Norvasc and metoprolol. = Patient says she is drinking a lot of water that is not recorded. I feel we are not making enough headway on diuresis. Repeat BNP. Will place patient on fluid restrictions. Continue CHF meds, diuresis. Hold aspirin, Plavix due to rectal bleeding. //Still with chest pain- -negative CT pulmonary angiography here. Likely demand mediated secondary to CHF exacerbation. //rectal bleeding: H/H stable so far, monitor h/h/ and transfuse if HGB< 7 or if symptomatic. -Holding aspirin and Plavix for now. //COPD-not in exacerbation //Hypertension-continue Norvasc, metoprolol, statin. //DVT prophylaxis: SCDs. Discharge Planning Patient continues with JVD, shortness of breath, increased oxygen requirement. Rectal bleeding. Logan Bosch MD Jan 06, 2017 10:54
--- NOTE | 2017-01-06 13:47 | RADRPT ---
EXAM DATE/TIME: 01/06/2017 13:18 [facility] COMPARISON: CHEST EXPIRATION ONLY, January 03, 2017, 14:09. CHEST SINGLE AP, January 01, 2017, 16:39. INDICATIONS : Shortness of breath. MEDICAL HISTORY : Myocardial infarction. Chronic obstructive pulmonary disease. Gastroesophageal reflux disease. Co ngestive heart failure. SURGICAL HISTORY : CABG. Cardiac stent. Cardiac catheterization. Left breast lumpectomy. ENCOUNTER: Subsequent ACUITY: 3 days PAIN SCORE: 0/10 LOCATION: Bilateral chest FINDINGS: A single view of the chest demonstrates some haziness at the bases with blunting of the costophrenic angles concerning for pleural effusions. The bases are barely included on this exam but I believe the re is some interval worsening. Heart size is borderline. Median sternotomy wires and surgical clips a re characteristic of prior CABG. Osseous structures are intact. CONCLUSION: 1. There appears to be some interval worsening of the bilateral pleural effusions. 2. Stable concomitant atelectatic changes in the left base. Zachary Coughlin MD on January 06, 2017 at 13:42 Board Certified Radiologist. This report was verified electronically.
[2017-01-06] MEDS: TEMAZEPAM 15 MG CAP PO PRN (20:18)
[2017-01-06] MEDS: ATORVASTATIN 80 MG TAB PO SCH (20:18)
[2017-01-07] VITALS (28 sets, daily range): BP systolic 116–148; BP diastolic 51–62; PULSE 64–86; RESP 18–20; TEMP 98–98.5; O2SAT 90–96
[2017-01-07] MEDS: hydrALAZINE HCL 10 MG TAB PO SCH ×3 (06:04→21:19)
[2017-01-07] MEDS: ISOSORBIDE DINITRATE 10 MG TAB PO SCH ×3 (06:04→21:19)
[2017-01-07] MEDS: ALPRAZolam 0.5 MG TAB PO PRN ×3 (06:06→20:27)
[2017-01-07 07:52] LABS: AUTOMATED NEUTROPHIL # 2.8 TH/MM3 (1.8-7.7); BASOPHIL % 0.5 % (0.0-2.0); EOSINOPHIL % 0.4 % (0.0-4.0); HEMATOCRIT 26.2 % (35.0-46.0); HEMO FLAGS DIFF FINAL; LYMPH % 21.1 % (9.0-44.0); LYMPHOCYTE # 0.8 TH/MM3 (1.0-4.8); MEAN CELL VOLUME 87.8 FL (80.0-100.0); MEAN CORPUSCULAR HEMOGLOBIN 29.8 PG (27.0-34.0); MEAN CORPUSCULAR HGB CONC 33.9 % (32.0-36.0); MONO % 6.6 % (0.0-8.0); NEUT % 71.4 % (16.0-70.0); PLATELET COUNT 116 TH/MM3 (150-450); RED BLOOD COUNT 2.98 MIL/MM3 (4.00-5.30); RED CELL DISTRIBUTION WIDTH 16.1 % (11.6-17.2); WHITE BLOOD COUNT 3.9 TH/MM3 (4.0-11.0)
[2017-01-07 08:14] LABS: BICARBONATE 34.2 MEQ/L (21.0-32.0); MAGNESIUM 1.9 MG/DL (1.5-2.5); POTASSIUM 4.2 MEQ/L (3.5-5.1)
[2017-01-07] MEDS: TIOTROPIUM BROMIDE 18 MCG INH INH SCH (08:27)
[2017-01-07] MEDS: SODIUM CHLORIDE 0.9% FLUSH 10 ML FLUSH IV FLUSH SCH ×2 (08:28→20:48)
[2017-01-07] MEDS: DOXYCYCLINE HYCLATE 100 MG TAB PO SCH ×2 (08:28→20:48)
[2017-01-07] MEDS: FLUoxetine HCL 20 MG CAP PO SCH ×2 (08:30→20:47)
[2017-01-07] MEDS: METOPROLOL TARTRATE 25 MG TAB PO SCH ×2 (08:30→20:48)
[2017-01-07] MEDS: CHOLESTYRAMINE 4 GM PACKET PO SCH ×2 (08:31→20:48)
[2017-01-07] MEDS: POTASSIUM CHLORIDE 20 MEQ CONTROLLED RELEASE TAB PO SCH ×3 (08:31→18:18)
[2017-01-07] MEDS: FUROSEMIDE 40 MG/4 ML VIAL IV PUSH SCH ×2 (08:31→18:18)
[2017-01-07] MEDS: ISOSORBIDE MONONITRATE 30 MG TAB PO SCH (08:31)
[2017-01-07] MEDS: amLODIPine BESYLATE 5 MG TAB PO SCH ×2 (08:34→20:47)
--- NOTE | 2017-01-07 09:29 | PD.CARD.PN ---
Subjective Subjective Remarks "the same" Objective Medications Current Medications Medications (Trade) Dose Ordered Sig/Samy Route Start Time Stop Time Status Last Admin (NS Flush) 2 ml UNSCH PRN IV FLUSH 01/01/17 18:30 (NS Flush) 2 ml BID IV FLUSH 01/01/17 21:00 01/07/17 08:28 (Narcan Inj) 0.4 mg UNSCH PRN IV PUSH 01/01/17 18:30 (Lasix Inj) 40 mg BID@,18 IV PUSH 01/02/17 09:00 01/07/17 08:31 (Lovenox Inj) 80 mg Q12H SQ 01/01/17 20:00 Future Hold 01/04/17 20:49 (Xanax) 0.5 mg Q8H PRN PO 01/01/17 19:45 01/07/17 06:06 (Norvasc) 5 mg BID PO 01/01/17 21:00 01/07/17 08:34 (Ecotrin Ec) 81 mg DAILY PO 01/02/17 09:00 Future Hold 01/04/17 09:24 (Lipitor) 80 mg HS PO 01/01/17 21:00 01/06/17 20:18 (Questran 4 Gm Pkt) 4 gm Q12HR PO 01/01/17 21:00 01/07/17 08:31 (Plavix) 75 mg DAILY PO 01/02/17 09:00 Future Hold 01/04/17 09:24 (Vibratab) 100 mg BID PO 01/01/17 21:00 01/07/17 08:28 (PROzac) 20 mg BID PO 01/01/17 21:00 01/07/17 08:30 (Minong 5-325 Mg) 1 tab Q6H PRN PO 01/01/17 19:45 01/04/17 09:48 (Imdur) 30 mg DAILY PO 01/02/17 09:00 01/07/17 08:31 (Lopressor) 75 mg BID PO 01/01/17 21:00 01/07/17 08:30 (Restoril) 15 mg HS PRN PO 01/01/17 19:45 01/06/17 20:18 (Spiriva Inh) 18 mcg DAILY INH 01/01/17 21:00 01/07/17 08:27 (Duoneb Neb) 1 ampule Q2HR NEB PRN NEB 01/01/17 19:45 01/06/17 18:15 (Nitroglycerin 2% Oint) 0.5 inch Q6HR PRN TOPICAL 01/02/17 14:15 (KCl) 20 meq TID PO 01/04/17 09:00 01/07/17 08:31 (Apresoline) 10 mg Q8HR PO 01/04/17 14:00 01/07/17 06:04 (Isordil) 10 mg Q8HR PO 01/04/17 14:00 01/07/17 06:04 (Protonix Inj) 40 mg Q12H IV PUSH 01/05/17 10:00 01/06/17 20:24 Vital Signs / I&O Vital Signs Date Time Temp Pulse Resp B/P (MAP) Pulse Ox O2 Delivery O2 Flow Rate FiO2 01/07/17 08:07 98.1 85 128/51 (76) 92 01/07/17 08:07 Venturi Mask 35 01/07/17 06:00 80 01/07/17 05:00 77 01/07/17 04:00 Venturi Mask 35 01/07/17 04:00 98.0 76 18 148/57 (87) 91 01/07/17 04:00 76 01/07/17 03:00 77 01/07/17 02:00 75 01/07/17 01:00 73 01/07/17 00:00 98.1 74 20 120/56 (77) 91 01/07/17 00:00 74 01/07/17 00:00 Venturi Mask 35 01/06/17 23:00 77 01/06/17 22:00 84 01/06/17 21:32 90 Venturi Mask 35 01/06/17 21:00 92 01/06/17 20:00 Venturi Mask 35 01/06/17 20:00 77 01/06/17 20:00 98.5 77 20 126/65 (85) 92 01/06/17 18:04 82 01/06/17 17:00 77 01/06/17 16:00 74 01/06/17 15:08 97.1 75 140/60 (86) 92 01/06/17 15:00 74 01/06/17 14:29 95 Venturi Mask 6.00 35 01/06/17 14:00 68 01/06/17 13:00 72 01/06/17 12:00 72 01/06/17 11:47 97.7 69 131/64 (86) 98 01/06/17 11:00 79 01/06/17 10:00 78 I/O 01/06/17 01/06/17 01/06/17 01/07/17 01/07/17 01/07/17 07:00 15:00 23:00 07:00 15:00 23:00 Intake Total 480 ml 1600 ml 480 ml Output Total 950 ml 850 ml 900 ml Balance -470 ml 750 ml -420 ml Intake Oral 480 ml 1600 ml 480 ml Output Urine Total 950 ml 850 ml 900 ml # Bowel Movements 3 3 0 Physical Exam GENERAL: Well-nourished, well-developed patient. SKIN: Warm and dry. HEAD: Normocephalic. EYES: No scleral icterus. No injection or drainage. NECK: Supple, trachea midline. No JVD or lymphadenopathy. CARDIOVASCULAR: Regular rate and rhythm without murmurs, gallops, or rubs. RESPIRATORY: Bilateral rales GASTROINTESTINAL: Abdomen soft, non-tender, nondistended. EXTREMITIES: No cyanosis, or edema. NEUROLOGICAL: Awake, alert, and oriented x 3. Non-focal. Laboratory Laboratory Tests Test 01/07/17 06:55 White Blood Count 3.9 TH/MM3 Red Blood Count 2.98 MIL/MM3 Hemoglobin 8.9 GM/DL Hematocrit 26.2 % Mean Corpuscular Volume 87.8 FL Mean Corpuscular Hemoglobin 29.8 PG Mean Corpuscular Hemoglobin Concent 33.9 % Red Cell Distribution Width 16.1 % Platelet Count 116 TH/MM3 Mean Platelet Volume 9.5 FL Neutrophils (%) (Auto) 71.4 % Lymphocytes (%) (Auto) 21.1 % Monocytes (%) (Auto) 6.6 % Eosinophils (%) (Auto) 0.4 % Basophils (%) (Auto) 0.5 % Neutrophils # (Auto) 2.8 TH/MM3 Lymphocytes # (Auto) 0.8 TH/MM3 Monocytes # (Auto) 0.3 TH/MM3 Eosinophils # (Auto) 0.0 TH/MM3 Basophils # (Auto) 0.0 TH/MM3 CBC Comment DIFF FINAL Differential Comment Blood Urea Nitrogen 19 MG/DL Creatinine 1.01 MG/DL Random Glucose 78 MG/DL Albumin 2.3 GM/DL Calcium Level 8.1 MG/DL Phosphorus Level 3.5 MG/DL Magnesium Level 1.9 MG/DL Sodium Level 138 MEQ/L Potassium Level 4.2 MEQ/L Chloride Level 97 MEQ/L Carbon Dioxide Level 34.2 MEQ/L Anion Gap 7 MEQ/L Estimat Glomerular Filtration Rate 54 ML/MIN Imaging Last Impressions Chest X-Ray 01/06/17 0000 Signed Impressions: Service Date/Time: Friday, January 06, 2017 13:18 - CONCLUSION: 1. There appears to be some interval worsening of the bilateral pleural effusions. 2. Stable concomitant atelectatic changes in the left base. Zachary Coughlin MD CT Angiography 01/04/17 0000 Signed Impressions: Service Date/Time: December 12:06 - CONCLUSION: No evidence of pulmonary embolism Quentin Eddy MD Thoracentesis Ultrasound 01/03/17 0000 Signed Impressions: Service Date/Time: Tuesday, January 03, 2017 13:18 - CONCLUSION: Uncomplicated ultrasound guided right thoracentesis with removal of 800 cc of clear yellow fluid. Quentin Roman MD Chest Ultrasound 01/02/17 0000 Signed Impressions: Service Date/Time: Monday, January 02, 2017 13:36 - CONCLUSION: There is a small to moderate size simple appearing right pleural effusion. No geovani was performed. Quentin Roman MD Assessment and Plan Problem List: (1) CHF exacerbation ICD Codes: I50.9 - Heart failure, unspecified Status: Acute Plan: Acute on chronic systolic congestive heart failure exacerbation with elevated trop. Pleural fluid getting worse on last xray and H&H trending down. Plan: Cont IV diuresis Avoid electrolytes abnormalities Low salt diet Daily weights Cont hydralazine and Isordil Hold aspirin, Plavix due to rectal bleeding. H/H trending down monitor h/h/ and transfuse if HGB< 7 Dr. Calderon to f/u in AM (2) Pleural effusion ICD Codes: J90 - Pleural effusion, not elsewhere classified (3) Hypertension, benign ICD Codes: I10 - Hypertension, benign Status: Chronic (4) COPD with acute exacerbation ICD Codes: J44.1 - Chronic obstructive pulmonary disease with (acute) exacerbation Status: Acute (5) CAD (coronary artery disease) ICD Codes: I25.10 - CAD (coronary artery disease) Status: Chronic (6) Hematochezia ICD Codes: K92.1 - Arya Martinez MD Jan 07, 2017 09:29
[2017-01-07] MEDS: PANTOPRAZOLE SODIUM 40 MG VIAL IV PUSH SCH ×2 (10:57→21:19)
[2017-01-07 12:48] LABS: BLOOD GAS CARBOXYHEMOGLOBIN 1.5 % (0-4); BLOOD GAS HCO3 33 mmol/L (22-26); BLOOD GAS O2 HGB SATURATION 92 % (90-100); BLOOD GAS OXYGEN CONTENT 15.2 Vol % (12.0-20.0); BLOOD GAS PCO2 46 mmHg (38-42); BLOOD GAS PO2 75 mmHg (61-120); BLOOD GAS TOTAL HGB 11.7 G/DL (12.0-16.0); TEMP CORR TO 98.6
[2017-01-07 12:49] LABS: CRITICAL VALUE NO; DRAW SITE RT RADIAL; FIO2 31 %; NUMBER OF ARTERIAL PUNCTURES 1; ULNAR PULSE PRESENT
[2017-01-07 12:50] LABS: OXYGEN DEVICE VENTI MASK; STAT NO
[2017-01-07] MEDS: RESP: ALBUTEROL 2.5 MG/IPRATROPIUM 0.5 MG NEB (PRN) NEB (17:02)
[2017-01-07] MEDS ORDERED: acetaZOLAMIDE 250 MG TAB PO ONE (17:30)
--- NOTE | 2017-01-07 17:30 | HHI.PR ---
Subjective Remarks Patient states that breathing initially better today, however says that her oxygen was left off and she is very anxious because of this. She denies any nausea or vomiting. Denies any hematochezia today. Objective Vital Signs Date Time Temp Pulse Resp B/P (MAP) Pulse Ox O2 Delivery O2 Flow Rate FiO2 01/07/17 17:03 96 Venturi Mask 6.00 35 01/07/17 15:39 Venturi Mask 35 01/07/17 15:39 98.5 79 18 146/62 (90) 90 01/07/17 14:00 72 01/07/17 13:00 70 01/07/17 12:00 72 01/07/17 11:11 65 01/07/17 11:04 98.1 69 116/54 (74) 94 01/07/17 10:00 64 01/07/17 09:00 86 01/07/17 08:07 98.1 85 128/51 (76) 92 01/07/17 08:07 Venturi Mask 35 01/07/17 08:00 82 01/07/17 07:00 81 01/07/17 06:00 80 01/07/17 05:00 77 01/07/17 04:00 Venturi Mask 35 01/07/17 04:00 98.0 76 18 148/57 (87) 91 01/07/17 04:00 76 01/07/17 03:00 77 01/07/17 02:00 75 01/07/17 01:00 73 01/07/17 00:00 98.1 74 20 120/56 (77) 91 01/07/17 00:00 74 01/07/17 00:00 Venturi Mask 35 01/06/17 23:00 77 01/06/17 22:00 84 01/06/17 21:32 90 Venturi Mask 35 01/06/17 21:00 92 01/06/17 20:00 Venturi Mask 35 01/06/17 20:00 77 01/06/17 20:00 98.5 77 20 126/65 (85) 92 01/06/17 18:04 82 I/O 01/06/17 01/06/17 01/06/17 01/07/17 01/07/17 01/07/17 07:00 15:00 23:00 07:00 15:00 23:00 Intake Total 480 ml 1600 ml 480 ml Output Total 950 ml 850 ml 900 ml Balance -470 ml 750 ml -420 ml Intake Oral 480 ml 1600 ml 480 ml Output Urine Total 950 ml 850 ml 900 ml # Bowel Movements 3 3 0 Result Diagram: 01/07/1765401/07/17654 Objective Remarks GENERAL: Patient sitting up in chair. Breathing improved from yesterday. Alert and oriented SKIN: Warm and dry. HEAD: Normocephalic. EYES: No scleral icterus. No injection or drainage. NECK: Supple, trachea midline. Patient with JVD still, however improved slightly. CARDIOVASCULAR: Regular rate and rhythm without murmurs, gallops, or rubs. RESPIRATORY: Breath sounds equal bilaterally. No accessory muscle use. GASTROINTESTINAL: Abdomen soft, non-tender, nondistended. MUSCULOSKELETAL: No cyanosis. +1 peripheral edema. Bilateral lower extremities. BACK: Nontender without obvious deformity. No CVA tenderness. A/P Assessment and Plan This is a 71-year-old female admitted for chest pain and shortness of breath with recent history of hospitalizations. //Acute on chronic congestive heart failure exacerbation, NSTEMI/ trop elevation -Status post paracentesis, likely transudative Cardiology and pulmonary following. On Lasix, switch to torsemide tomorrow. Follow BMP. Troponin elevation could be demand mediated. Start hydralazine and Isordil per cardiology. Shortness of breath is better. Pleural fluid studies negative so far. Ejection fraction 40-45%. Follow BMP. Continue aspirin, Plavix, Norvasc and metoprolol. = Patient says she is drinking a lot of water that is not recorded. I feel we are not making enough headway on diuresis. Repeat BNP. Will place patient on fluid restrictions. Continue CHF meds, diuresis. Hold aspirin, Plavix due to rectal bleeding. = Oxygen requirement improving. Needs continued diuresis. Some base excess due to contraction alkalosis, however still with JVD on exam. We'll order Diamox 1. Continue to monitor fluid status. //Still with chest pain- -negative CT pulmonary angiography here. Likely demand mediated secondary to CHF exacerbation. //rectal bleeding: H/H stable so far, monitor h/h/ and transfuse if HGB< 7 or if symptomatic. -Holding aspirin and Plavix for now. = Hemoglobin 8.9. Continue to monitor. //COPD-not in exacerbation //Hypertension-continue Norvasc, metoprolol, statin. //DVT prophylaxis: SCDs. Discharge Planning Patient continues with JVD, shortness of breath, increased oxygen requirement. Rectal bleeding. Logan Bosch MD Jan 07, 2017 17:30
[2017-01-07] MEDS: TEMAZEPAM 15 MG CAP PO PRN (20:47)
[2017-01-07] MEDS: ATORVASTATIN 80 MG TAB PO SCH (20:48)
[2017-01-08] VITALS (28 sets, daily range): BP systolic 119–145; BP diastolic 51–64; PULSE 66–83; RESP 18–20; TEMP 97.9–98.4; O2SAT 90–97
[2017-01-08] MEDS: RESP: ALBUTEROL 2.5 MG/IPRATROPIUM 0.5 MG NEB (PRN) NEB ×2 (03:54→20:19)
[2017-01-08] MEDS: ALPRAZolam 0.5 MG TAB PO PRN ×2 (05:40→18:18)
[2017-01-08] MEDS: ISOSORBIDE DINITRATE 10 MG TAB PO SCH ×2 (05:40→14:10)
[2017-01-08] MEDS: hydrALAZINE HCL 10 MG TAB PO SCH ×3 (05:40→20:56)
[2017-01-08 06:41] LABS: BASOPHIL % 0.5 % (0.0-2.0); EOSINOPHIL % 0.5 % (0.0-4.0); HEMATOCRIT 27.8 % (35.0-46.0); HEMO FLAGS DIFF FINAL; LYMPH % 21.1 % (9.0-44.0); LYMPHOCYTE # 0.9 TH/MM3 (1.0-4.8); MEAN CELL VOLUME 87.9 FL (80.0-100.0); MEAN CORPUSCULAR HEMOGLOBIN 29.6 PG (27.0-34.0); MEAN CORPUSCULAR HGB CONC 33.7 % (32.0-36.0); MONO % 7.4 % (0.0-8.0); NEUT % 70.5 % (16.0-70.0); PLATELET COUNT 133 TH/MM3 (150-450); RED BLOOD COUNT 3.17 MIL/MM3 (4.00-5.30); RED CELL DISTRIBUTION WIDTH 16.1 % (11.6-17.2); WHITE BLOOD COUNT 4.3 TH/MM3 (4.0-11.0)
[2017-01-08 07:02] LABS: BICARBONATE 31.7 MEQ/L (21.0-32.0); MAGNESIUM 1.9 MG/DL (1.5-2.5); POTASSIUM 3.7 MEQ/L (3.5-5.1)
[2017-01-08] MEDS: PANTOPRAZOLE SODIUM 40 MG VIAL IV PUSH SCH ×2 (09:37→20:55)
[2017-01-08] MEDS: CHOLESTYRAMINE 4 GM PACKET PO SCH ×2 (09:37→20:56)
[2017-01-08] MEDS: POTASSIUM CHLORIDE 20 MEQ CONTROLLED RELEASE TAB PO SCH ×3 (09:37→18:18)
[2017-01-08] MEDS: FLUoxetine HCL 20 MG CAP PO SCH ×2 (09:38→20:56)
[2017-01-08] MEDS: FUROSEMIDE 40 MG/4 ML VIAL IV PUSH SCH (09:38)
[2017-01-08] MEDS: amLODIPine BESYLATE 5 MG TAB PO SCH ×2 (09:38→20:55)
[2017-01-08] MEDS: METOPROLOL TARTRATE 25 MG TAB PO SCH ×2 (09:38→20:56)
[2017-01-08] MEDS: ISOSORBIDE MONONITRATE 30 MG TAB PO SCH (09:38)
[2017-01-08] MEDS: DOXYCYCLINE HYCLATE 100 MG TAB PO SCH ×2 (09:38→20:56)
[2017-01-08] MEDS: SODIUM CHLORIDE 0.9% FLUSH 10 ML FLUSH IV FLUSH SCH ×2 (09:39→20:55)
[2017-01-08] MEDS: TIOTROPIUM BROMIDE 18 MCG INH INH SCH (09:39)
[2017-01-08] MEDS: ACETAMINOPHEN/HYDROcodone 325 MG/5 MG TAB PO PRN (10:21)
--- NOTE | 2017-01-08 10:29 | HHI.PR ---
Subjective Remarks Patient says that breathing is improved somewhat today. Denies any chest pain. As any nausea or vomiting. Denies any dysuria. Objective Vital Signs Date Time Temp Pulse Resp B/P (MAP) Pulse Ox O2 Delivery O2 Flow Rate FiO2 01/08/17 09:35 98.3 83 18 131/56 (81) 97 01/08/17 06:00 80 01/08/17 05:00 76 01/08/17 04:00 Nasal Cannula 4.00 01/08/17 04:00 98.4 75 18 137/62 (87) 96 01/08/17 04:00 79 01/08/17 03:00 74 01/08/17 02:00 75 01/08/17 01:00 79 01/08/17 00:00 76 01/08/17 00:00 Nasal Cannula 4.00 01/08/17 00:00 98.4 76 18 138/64 (88) 95 01/07/17 23:00 79 01/07/17 22:00 75 01/07/17 21:00 82 01/07/17 20:22 91 Nasal Cannula 4.00 01/07/17 20:00 Nasal Cannula 4.00 01/07/17 20:00 77 01/07/17 20:00 98.1 77 18 135/60 (85) 96 01/07/17 18:18 91 Nasal Cannula 4.00 01/07/17 18:00 82 01/07/17 17:03 96 Venturi Mask 6.00 35 01/07/17 17:00 74 01/07/17 16:45 92 Nasal Cannula 4.00 01/07/17 16:00 65 01/07/17 15:39 Venturi Mask 35 01/07/17 15:39 98.5 79 18 146/62 (90) 90 01/07/17 15:00 76 01/07/17 14:00 72 01/07/17 13:00 70 01/07/17 12:00 72 01/07/17 11:11 65 01/07/17 11:04 98.1 69 116/54 (74) 94 I/O 01/07/17 01/07/17 01/07/17 01/08/17 01/08/17 01/08/17 07:00 15:00 23:00 07:00 15:00 23:00 Intake Total 480 ml 1100 ml 480 ml Output Total 900 ml 700 ml 850 ml Balance -420 ml 400 ml -370 ml Intake Oral 480 ml 1100 ml 480 ml Output Urine Total 900 ml 700 ml 850 ml # Bowel Movements 0 3 0 Result Diagram: 01/08/17 0545 01/08/17 0545 Objective Remarks GENERAL: Patient sitting up in chair eating breakfast. Breathing comfortably today.. Alert and oriented SKIN: Warm and dry. HEAD: Normocephalic. EYES: No scleral icterus. No injection or drainage. NECK: Supple, trachea midline. No JVD on exam today. CARDIOVASCULAR: Regular rate and rhythm without murmurs, gallops, or rubs. RESPIRATORY: Breath sounds equal bilaterally. No accessory muscle use. GASTROINTESTINAL: Abdomen soft, non-tender, nondistended. MUSCULOSKELETAL: No cyanosis. Trace peripheral edema. Bilateral lower extremities. BACK: Nontender without obvious deformity. No CVA tenderness. A/P Assessment and Plan This is a 71-year-old female admitted for chest pain and shortness of breath with recent history of hospitalizations. //Acute on chronic congestive heart failure exacerbation, NSTEMI/ trop elevation //Coronary artery disease with bypass in 2005. -Status post paracentesis, likely transudative Cardiology and pulmonary following. On Lasix, switch to torsemide tomorrow. Follow BMP. Troponin elevation could be demand mediated. Start hydralazine and Isordil per cardiology. Shortness of breath is better. Pleural fluid studies negative so far. Ejection fraction 40-45%. Follow BMP. Continue aspirin, Plavix, Norvasc and metoprolol. = Patient says she is drinking a lot of water that is not recorded. I feel we are not making enough headway on diuresis. Repeat BNP. Will place patient on fluid restrictions. Continue CHF meds, diuresis. Hold aspirin, Plavix due to rectal bleeding. = Oxygen requirement improving. Needs continued diuresis. Some base excess due to contraction alkalosis, however still with JVD on exam. We'll order Diamox 1. Continue to monitor fluid status. = Oxygen much improved. Saturating mid 90s on 2 L. With small HARITHA. Will liberalize fluid restrictions, hold IV diuresis for 1 day. Strict fluid monitoring however. Restart aspirin. Continue to hold Plavix secondary to GI bleed. //Acute kidney injury. -Creatinine 1.25 from her 0.9 on admission. Likely secondary to slight over diuresis. We will check urinalysis. Discontinue IV Lasix, restart tomorrow by mouth. -Liberalize fluid restrictions, strict monitoring however. //Chest pain improved. Negative CT pulmonary angiography here. Likely demand mediated secondary to CHF exacerbation. //rectal bleeding: H/H stable so far, monitor h/h/ and transfuse if HGB< 7 or if symptomatic. -Holding aspirin and Plavix for now. = Hemoglobin 9.4.. Patient is stable for GI procedure. //COPD-not in exacerbation //Hypertension-continue Norvasc, metoprolol, statin. //DVT prophylaxis: SCDs. Discharge Planning CHF exacerbation has resolved. Patient was small HARITHA. Still holding Plavix secondary to GI bleed. Restart aspirin. GI following. Logan Bosch MD Jan 08, 2017 10:29
--- NOTE | 2017-01-08 10:52 | PD.CARD.PN ---
Subjective Subjective Remarks c/o SOB, Back hurts. Chest feels heavy intermittently. 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 Objective Medications Current Medications Medications (Trade) Dose Ordered Sig/Samy Route Start Time Stop Time Status Last Admin (NS Flush) 2 ml UNSCH PRN IV FLUSH 01/01/17 18:30 (NS Flush) 2 ml BID IV FLUSH 01/01/17 21:00 01/08/17 09:39 (Narcan Inj) 0.4 mg UNSCH PRN IV PUSH 01/01/17 18:30 (Lovenox Inj) 80 mg Q12H SQ 01/01/17 20:00 Future Hold 01/04/17 20:49 (Xanax) 0.5 mg Q8H PRN PO 01/01/17 19:45 01/08/17 05:40 (Norvasc) 5 mg BID PO 01/01/17 21:00 01/08/17 09:38 (Ecotrin Ec) 81 mg DAILY PO 01/02/17 09:00 Future Hold 01/04/17 09:24 (Lipitor) 80 mg HS PO 01/01/17 21:00 01/07/17 20:48 (Questran 4 Gm Pkt) 4 gm Q12HR PO 01/01/17 21:00 01/08/17 09:37 (Plavix) 75 mg DAILY PO 01/02/17 09:00 Future Hold 01/04/17 09:24 (Vibratab) 100 mg BID PO 01/01/17 21:00 01/08/17 09:38 (PROzac) 20 mg BID PO 01/01/17 21:00 01/08/17 09:38 (Medanales 5-325 Mg) 1 tab Q6H PRN PO 01/01/17 19:45 01/08/17 10:21 (Imdur) 30 mg DAILY PO 01/02/17 09:00 01/08/17 09:38 (Lopressor) 75 mg BID PO 01/01/17 21:00 01/08/17 09:38 (Restoril) 15 mg HS PRN PO 01/01/17 19:45 01/07/17 20:47 (Spiriva Inh) 18 mcg DAILY INH 01/01/17 21:00 01/08/17 09:39 (Duoneb Neb) 1 ampule Q2HR NEB PRN NEB 01/01/17 19:45 01/08/17 03:54 (Nitroglycerin 2% Oint) 0.5 inch Q6HR PRN TOPICAL 01/02/17 14:15 (KCl) 20 meq TID PO 01/04/17 09:00 01/08/17 09:37 (Apresoline) 10 mg Q8HR PO 01/04/17 14:00 01/08/17 05:40 (Isordil) 10 mg Q8HR PO 01/04/17 14:00 01/08/17 05:40 (Protonix Inj) 40 mg Q12H IV PUSH 01/05/17 10:00 01/08/17 09:37 (Lasix) 40 mg BID@18 PO 01/09/17 09:00 (Ecotrin Ec) 81 mg DAILY PO 01/08/17 10:30 UNV Vital Signs / I&O Vital Signs Date Time Temp Pulse Resp B/P (MAP) Pulse Ox O2 Delivery O2 Flow Rate FiO2 01/08/17 10:22 92 Nasal Cannula 1.00 01/08/17 09:35 98.3 83 18 131/56 (81) 97 01/08/17 06:00 80 01/08/17 05:00 76 01/08/17 04:00 Nasal Cannula 4.00 01/08/17 04:00 98.4 75 18 137/62 (87) 96 01/08/17 04:00 79 01/08/17 03:00 74 01/08/17 02:00 75 01/08/17 01:00 79 01/08/17 00:00 76 01/08/17 00:00 Nasal Cannula 4.00 01/08/17 00:00 98.4 76 18 138/64 (88) 95 01/07/17 23:00 79 01/07/17 22:00 75 01/07/17 21:00 82 01/07/17 20:22 91 Nasal Cannula 4.00 01/07/17 20:00 Nasal Cannula 4.00 01/07/17 20:00 77 01/07/17 20:00 98.1 77 18 135/60 (85) 96 01/07/17 18:18 91 Nasal Cannula 4.00 01/07/17 18:00 82 11/12/17 17:03 96 Venturi Mask 6.00 35 01/07/17 17:00 74 01/07/17 16:45 92 Nasal Cannula 4.00 01/07/17 16:00 65 01/07/17 15:39 Venturi Mask 35 01/07/17 15:39 98.5 79 18 146/62 (90) 90 01/07/17 15:00 76 01/07/17 14:00 72 01/07/17 13:00 70 01/07/17 12:00 72 01/07/17 11:11 65 01/07/17 11:04 98.1 69 116/54 (74) 94 I/O 01/07/17 01/07/17 01/07/17 01/08/17 01/08/17 01/08/17 07:00 15:00 23:00 07:00 15:00 23:00 Intake Total 480 ml 1100 ml 480 ml Output Total 900 ml 700 ml 850 ml Balance -420 ml 400 ml -370 ml Intake Oral 480 ml 1100 ml 480 ml Output Urine Total 900 ml 700 ml 850 ml # Bowel Movements 0 3 0 Physical Exam Alert Chest severely diminished throughout CV S1S2 RRR Edema trace Laboratory Laboratory Tests Test 01/07/17 12:36 01/08/17 05:45 Blood Gas Puncture Site RT RADIAL Blood Gas Patient Temperature 98.6 Blood Gas HCO3 33 mmol/L Blood Gas Base Excess 9.0 mmol/L Blood Gas Oxygen Saturation 92 % Arterial Blood pH 7.47 Arterial Blood Partial Pressure CO2 46 mmHg Arterial Blood Partial Pressure O2 75 mmHg Arterial Blood Oxygen Content 15.2 Vol % Arterial Blood Carboxyhemoglobin 1.5 % Arterial Blood Methemoglobin 1.0 % Blood Gas Hemoglobin 11.7 G/DL Oxygen Delivery Device VENTI MASK Blood Gas Inspired Oxygen 31 % White Blood Count 4.3 TH/MM3 Red Blood Count 3.17 MIL/MM3 Hemoglobin 9.4 GM/DL Hematocrit 27.8 % Mean Corpuscular Volume 87.9 FL Mean Corpuscular Hemoglobin 29.6 PG Mean Corpuscular Hemoglobin Concent 33.7 % Red Cell Distribution Width 16.1 % Platelet Count 133 TH/MM3 Mean Platelet Volume 9.4 FL Neutrophils (%) (Auto) 70.5 % Lymphocytes (%) (Auto) 21.1 % Monocytes (%) (Auto) 7.4 % Eosinophils (%) (Auto) 0.5 % Basophils (%) (Auto) 0.5 % Neutrophils # (Auto) 3.0 TH/MM3 Lymphocytes # (Auto) 0.9 TH/MM3 Monocytes # (Auto) 0.3 TH/MM3 Eosinophils # (Auto) 0.0 TH/MM3 Basophils # (Auto) 0.0 TH/MM3 CBC Comment DIFF FINAL Differential Comment Blood Urea Nitrogen 21 MG/DL Creatinine 1.25 MG/DL Random Glucose 88 MG/DL Albumin 2.4 GM/DL Calcium Level 8.5 MG/DL Phosphorus Level 4.0 MG/DL Magnesium Level 1.9 MG/DL Sodium Level 137 MEQ/L Potassium Level 3.7 MEQ/L Chloride Level 97 MEQ/L Carbon Dioxide Level 31.7 MEQ/L Anion Gap 8 MEQ/L Estimat Glomerular Filtration Rate 42 ML/MIN Assessment and Plan Problem List: (1) CHF exacerbation ICD Codes: I50.9 - Heart failure, unspecified Status: Acute (2) Pleural effusion ICD Codes: J90 - Pleural effusion, not elsewhere classified (3) Hypertension, benign ICD Codes: I10 - Hypertension, benign Status: Chronic (4) COPD with acute exacerbation ICD Codes: J44.1 - Chronic obstructive pulmonary disease with (acute) exacerbation Status: Acute (5) CAD (coronary artery disease) ICD Codes: I25.10 - CAD (coronary artery disease) Status: Chronic Plan: recommend medical therapy (6) Hematochezia ICD Codes: K92.1 - Melena Assessment and Plan I will F/U prn Olegario Calderon MD Jan 08, 2017 10:52
[2017-01-08] MEDS: ASPIRIN EC 81 MG TABEC PO SCH (11:00)
[2017-01-08 13:37] LABS: BLOOD, URINE NEG (NEG); COMMENT (UR) CULT NOT INDICATED; CULTURE IF INDICATED CULT NOT INDICATED; GLUCOSE,URINE NEG (NEG); HYALINE CAST, URINE 3 /lpf (RARE); KETONE, URINE NEG (NEG); MUCUS URINE FEW /lpf (OCC); NITRITE,URINE NEG (NEG); URINE COLOR YELLOW (YELLW/STRAW)
--- NOTE | 2017-01-08 16:11 | HHI.GIFU ---
Subjective Remarks Pt resting in bed in NAD. Still with blood in stool, diarrhea. (Pascale Ruiz) Objective Vitals I&O Vital Signs Date Time Temp Pulse Resp B/P (MAP) Pulse Ox O2 Delivery O2 Flow Rate FiO2 01/08/17 12:37 98.3 66 18 123/59 (80) 92 01/08/17 12:33 92 Nasal Cannula 2.00 01/08/17 12:33 92 Nasal Cannula 2.00 01/08/17 11:00 76 01/08/17 10:22 92 Nasal Cannula 1.00 01/08/17 10:00 78 01/08/17 09:35 98.3 83 18 131/56 (81) 97 01/08/17 09:00 80 01/08/17 08:00 82 01/08/17 07:00 82 01/08/17 06:00 80 01/08/17 05:00 76 01/08/17 04:00 Nasal Cannula 4.00 01/08/17 04:00 98.4 75 18 137/62 (87) 96 01/08/17 04:00 79 01/08/17 03:00 74 01/08/17 02:00 75 01/08/17 01:00 79 01/08/17 00:00 76 01/08/17 00:00 Nasal Cannula 4.00 01/08/17 00:00 98.4 76 18 138/64 (88) 95 01/07/17 23:00 79 01/07/17 22:00 75 01/07/17 21:00 82 01/07/17 20:22 91 Nasal Cannula 4.00 01/07/17 20:00 Nasal Cannula 4.00 01/07/17 20:00 77 01/07/17 20:00 98.1 77 18 135/60 (85) 96 01/07/17 18:18 91 Nasal Cannula 4.00 01/07/17 18:00 82 01/07/17 17:03 96 Venturi Mask 6.00 35 01/07/17 17:00 74 01/07/17 16:45 92 Nasal Cannula 4.00 I/O 01/07/17 01/07/17 01/07/17 01/08/17 01/08/17 01/08/17 07:00 15:00 23:00 07:00 15:00 23:00 Intake Total 480 ml 1100 ml 480 ml Output Total 900 ml 700 ml 850 ml Balance -420 ml 400 ml -370 ml Intake Oral 480 ml 1100 ml 480 ml Output Urine Total 900 ml 700 ml 850 ml # Bowel Movements 0 3 0 Laboratory Laboratory Tests Test 01/08/17 05:45 01/08/17 12:40 White Blood Count 4.3 Red Blood Count 3.17 Hemoglobin 9.4 Hematocrit 27.8 Mean Corpuscular Volume 87.9 Mean Corpuscular Hemoglobin 29.6 Mean Corpuscular Hemoglobin Concent 33.7 Red Cell Distribution Width 16.1 Platelet Count 133 Mean Platelet Volume 9.4 Neutrophils (%) (Auto) 70.5 Lymphocytes (%) (Auto) 21.1 Monocytes (%) (Auto) 7.4 Eosinophils (%) (Auto) 0.5 Basophils (%) (Auto) 0.5 Neutrophils # (Auto) 3.0 Lymphocytes # (Auto) 0.9 Monocytes # (Auto) 0.3 Eosinophils # (Auto) 0.0 Basophils # (Auto) 0.0 CBC Comment DIFF FINAL Differential Comment Blood Urea Nitrogen 21 Creatinine 1.25 Random Glucose 88 Albumin 2.4 Calcium Level 8.5 Phosphorus Level 4.0 Magnesium Level 1.9 Sodium Level 137 Potassium Level 3.7 Chloride Level 97 Carbon Dioxide Level 31.7 Anion Gap 8 Estimat Glomerular Filtration Rate 42 Urine Color YELLOW Urine Turbidity CLEAR Urine pH 7.0 Urine Specific [place] 1.007 Urine Protein NEG Urine Glucose (UA) NEG Urine Ketones NEG Urine Occult Blood NEG Urine Nitrite NEG Urine Bilirubin NEG Urine Urobilinogen LESS THAN 2.0 Urine Leukocyte Esterase SMALL Urine RBC 2 Urine WBC 6 Urine Hyaline Casts 3 Urine Mucus FEW Urine Yeast (Budding) OCC Microscopic Urinalysis Comment CULT NOT INDICATED Urine Random Creatinine 29.8 Urine Random Sodium 75 Date/Time Source Procedure Growth Status 01/03/17 14:00 Fluid Pleural Fluid Fungal Smear - Final NO FUNGAL ELEMENTS SEEN. Resulted 01/03/17 14:00 Fluid Pleural Fluid Fungal Culture Pending Resulted 01/06/17 10:10 Stool Stool Stool Occult Blood (RENAE) - Final HEMOCCULT POSITIVE Complete Physical Exam HEENT: Normocephalic; atraumatic; no jaundice. CHEST: CTA, diminished. CARDIAC: RRR ABDOMEN: Soft, nondistended, diffusely TTP; no hepatosplenomegaly; bowel sounds are present. EXTREMITIES: No clubbing, cyanosis, or edema. SKIN: pale; no rash; no jaundice. 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 Recent hx C. Diff, 12/19 pos epid 027. Patient unable to recall details about previous EGD/colonoscopy. Pt says continuing to have rectal bleeding hemoccult pos. HH stable, plavix held since 01/06 cleared for endoscopy by cardiology, d/w Dr Calderon - COPD, exacerbation. On BiPAP at night. Pulmonology following. - CHF, NSTEMI, per primary. Cardiology following PLAN - EGD/colonoscopy in am - GoLytely - obtain consent - clears - NPO after midnight - cont protonix - Monitor HH - transfuse as needed - Supportive care Patient seen and examined by Dr. Arthur and myself and this note is written on his behalf. (Pascale Ruiz) Physician Comments Patient seen and examined Agree with above Continue with current supportive care Monitor labs Plan to proceed with EGD and a colonoscopy although her respiratory status is borderline at this point but she continues to have rectal bleeding and she has been cleared by cardiology for a GI evaluation (Anselmo Arthur MD) Pascale Ruiz Jan 08, 2017 16:11 Anselmo Arthur MD Jan 08, 2017 18:44
[2017-01-08] MEDS ORDERED: PEG (High)/E-LYTE SOLN 4000 ML BTL PO ONE (18:00)
[2017-01-08] MEDS: ISOSORBIDE DINITRATE 20 MG TAB PO SCH (18:18)
--- NOTE | 2017-01-08 19:15 | HHI.PR ---
Subjective Remarks 71 YOWF with CAD, multiple stents, CHF Pl eff Breathing better No Fever Cytology negative Had rectal bleed, GI evaluating pt Taking Golytly Anxious Objective Vital Signs Vital Signs Date Time Temp Pulse Resp B/P (MAP) Pulse Ox O2 Delivery O2 Flow Rate FiO2 01/08/17 18:00 68 01/08/17 17:00 68 01/08/17 16:30 98.2 69 20 119/51 (73) 90 01/08/17 16:00 66 01/08/17 15:00 66 01/08/17 14:00 66 01/08/17 13:00 66 01/08/17 12:37 98.3 66 18 123/59 (80) 92 01/08/17 12:33 92 Nasal Cannula 2.00 01/08/17 12:33 92 Nasal Cannula 2.00 01/08/17 12:00 66 01/08/17 11:00 76 01/08/17 10:22 92 Nasal Cannula 1.00 01/08/17 10:00 78 01/08/17 09:35 98.3 83 18 131/56 (81) 97 01/08/17 09:00 80 01/08/17 08:00 82 01/08/17 07:00 82 01/08/17 06:00 80 01/08/17 05:00 76 01/08/17 04:00 Nasal Cannula 4.00 01/08/17 04:00 98.4 75 18 137/62 (87) 96 01/08/17 04:00 79 01/08/17 03:00 74 01/08/17 02:00 75 01/08/17 01:00 79 01/08/17 00:00 76 01/08/17 00:00 Nasal Cannula 4.00 01/08/17 00:00 98.4 76 18 138/64 (88) 95 01/07/17 23:00 79 01/07/17 22:00 75 01/07/17 21:00 82 01/07/17 20:22 91 Nasal Cannula 4.00 01/07/17 20:00 Nasal Cannula 4.00 01/07/17 20:00 77 01/07/17 20:00 98.1 77 18 135/60 (85) 96 I/O 01/07/17 01/07/17 01/07/17 01/08/17 01/08/17 11/13/17 07:00 15:00 23:00 07:00 15:00 23:00 Intake Total 480 ml 1100 ml 480 ml 340 ml Output Total 900 ml 700 ml 850 ml 851 ml Balance -420 ml 400 ml -370 ml -511 ml Intake Oral 480 ml 1100 ml 480 ml 340 ml Output Urine Total 900 ml 700 ml 850 ml 850 ml Stool Total 1 ml # Bowel Movements 0 3 0 Result Diagram: 01/08/1754401/08/17544 Objective Remarks GENERAL: MBMN WF, mild sob SKIN: Warm and dry. HEAD: Normocephalic. EYES: No scleral icterus. No injection or drainage. NECK: Supple, trachea midline. No JVD or lymphadenopathy. CARDIOVASCULAR: Regular rate and rhythm without murmurs, gallops, or rubs. RESPIRATORY: Breath sounds equal bilaterally. No accessory muscle use. GASTROINTESTINAL: Abdomen soft, non-tender, nondistended. MUSCULOSKELETAL: No cyanosis, or edema. BACK: Nontender without obvious deformity. No CVA tenderness. A/P Assessment and Plan Pleural effusion, s/p TC CHF COPD CAD H/O Nicotine use PLAN: Diurease Supplement 02 Cytology Negative Samy for Colonoscopy in Jayy Starkey MD Jan 08, 2017 19:15
[2017-01-08] MEDS: ATORVASTATIN 80 MG TAB PO SCH (20:55)
[2017-01-09] VITALS (23 sets, daily range): BP systolic 122–155; BP diastolic 55–67; PULSE 64–72; RESP 12–22; TEMP 97.8–98.5; O2SAT 92–97
[2017-01-09] MEDS: ACETAMINOPHEN/HYDROcodone 325 MG/5 MG TAB PO PRN ×2 (01:10→23:32)
[2017-01-09] MEDS: ALPRAZolam 0.5 MG TAB PO PRN ×2 (01:10→23:29)
[2017-01-09] MEDS: hydrALAZINE HCL 10 MG TAB PO SCH ×3 (05:56→23:28)
[2017-01-09 06:54] LABS: AUTOMATED NEUTROPHIL # 2.7 TH/MM3 (1.8-7.7); BASOPHIL % 0.4 % (0.0-2.0); HEMATOCRIT 25.4 % (35.0-46.0); HEMO FLAGS DIFF FINAL; LYMPH % 25.8 % (9.0-44.0); LYMPHOCYTE # 1.1 TH/MM3 (1.0-4.8); MEAN CELL VOLUME 87.8 FL (80.0-100.0); MONO % 7.7 % (0.0-8.0); NEUT % 65.1 % (16.0-70.0); PLATELET COUNT 138 TH/MM3 (150-450); RED CELL DISTRIBUTION WIDTH 16.4 % (11.6-17.2); WHITE BLOOD COUNT 4.1 TH/MM3 (4.0-11.0)
[2017-01-09 07:26] LABS: BICARBONATE 31.5 MEQ/L (21.0-32.0); MAGNESIUM 1.9 MG/DL (1.5-2.5); POTASSIUM 3.5 MEQ/L (3.5-5.1)
[2017-01-09] MEDS: TIOTROPIUM BROMIDE 18 MCG INH INH SCH (09:07)
[2017-01-09] MEDS: POTASSIUM CHLORIDE 20 MEQ CONTROLLED RELEASE TAB PO SCH ×3 (09:08→21:17)
[2017-01-09] MEDS: FLUoxetine HCL 20 MG CAP PO SCH ×2 (09:08→21:17)
[2017-01-09] MEDS: METOPROLOL TARTRATE 25 MG TAB PO SCH ×2 (09:08→23:28)
[2017-01-09] MEDS: FUROSEMIDE 40 MG TAB PO SCH ×2 (09:08→21:16)
[2017-01-09] MEDS: PANTOPRAZOLE SODIUM 40 MG VIAL IV PUSH SCH ×2 (09:08→21:18)
[2017-01-09] MEDS: DOXYCYCLINE HYCLATE 100 MG TAB PO SCH ×2 (09:08→21:18)
[2017-01-09] MEDS: ISOSORBIDE DINITRATE 20 MG TAB PO SCH ×3 (09:09→21:18)
[2017-01-09] MEDS: ASPIRIN EC 81 MG TABEC PO SCH (09:09)
[2017-01-09] MEDS: amLODIPine BESYLATE 5 MG TAB PO SCH ×2 (09:09→23:28)
[2017-01-09] MEDS: SODIUM CHLORIDE 0.9% FLUSH 10 ML FLUSH IV FLUSH SCH ×2 (09:09→21:19)
[2017-01-09] MEDS: CHOLESTYRAMINE 4 GM PACKET PO SCH ×2 (09:10→21:18)
--- NOTE | 2017-01-09 11:30 | HHI.PR ---
Subjective Remarks 71 YOWF with CAD, multiple stents, CHF Pl eff Breathing better No Fever Cytology negative Had rectal bleed, GI evaluating pt On NC Objective Vital Signs Vital Signs Date Time Temp Pulse Resp B/P (MAP) Pulse Ox O2 Delivery O2 Flow Rate FiO2 01/09/17 10:17 66 01/09/17 09:11 97.8 68 22 141/63 (89) 93 01/09/17 09:11 93 Nasal Cannula 2.00 01/09/17 09:00 64 01/09/17 08:00 64 01/09/17 07:00 67 01/09/17 06:00 68 01/09/17 05:59 69 01/09/17 04:36 67 01/09/17 04:00 97.9 68 20 133/55 (81) 92 01/09/17 03:00 67 20 01/09/17 02:00 69 01/09/17 00:00 72 01/08/17 23:00 97.9 72 20 139/58 (85) 93 01/08/17 23:00 72 01/08/17 22:00 74 01/08/17 20:19 93 Nasal Cannula 3.00 01/08/17 20:00 78 01/08/17 20:00 97.9 78 20 145/60 (88) 92 01/08/17 19:00 92 Nasal Cannula 2.00 01/08/17 19:00 68 01/08/17 18:00 68 01/08/17 17:00 68 01/08/17 16:30 98.2 69 20 119/51 (73) 90 01/08/17 16:00 66 01/08/17 15:00 66 01/08/17 14:00 66 01/08/17 13:00 66 01/08/17 12:37 98.3 66 18 123/59 (80) 92 01/08/17 12:33 92 Nasal Cannula 2.00 01/08/17 12:33 92 Nasal Cannula 2.00 01/08/17 12:00 66 I/O 01/08/17 01/08/17 01/08/17 01/09/17 01/09/17 01/09/17 07:00 15:00 23:00 07:00 15:00 23:00 Intake Total 480 ml 340 ml 240 ml Output Total 850 ml 851 ml 453 ml Balance -370 ml -511 ml -213 ml Intake Oral 480 ml 340 ml 240 ml Output Urine Total 850 ml 850 ml 450 ml Stool Total 1 ml 3 ml # Bowel Movements 0 Result Diagram: 01/09/1752 01/09/1752 Objective Remarks GENERAL: MBMN WF, mild sob SKIN: Warm and dry. HEAD: Normocephalic. EYES: No scleral icterus. No injection or drainage. NECK: Supple, trachea midline. No JVD or lymphadenopathy. CARDIOVASCULAR: Regular rate and rhythm without murmurs, gallops, or rubs. RESPIRATORY: Breath sounds equal bilaterally. No accessory muscle use. GASTROINTESTINAL: Abdomen soft, non-tender, nondistended. MUSCULOSKELETAL: No cyanosis, or edema. BACK: Nontender without obvious deformity. No CVA tenderness. A/P Assessment and Plan Pleural effusion, s/p TC CHF COPD CAD H/O Nicotine use PLAN: Diurease Supplement 02 Cytology Negative Samy for Colonoscopy Jayy Bhakta MD Jan 09, 2017 11:30
--- NOTE | 2017-01-09 11:44 | HHI.PR ---
Subjective Remarks Patient seen in room in follow up for GI bleed, NSTEMI, CHF exacerbation and generalized weakness Patient seen with nursing team Still very weak and complaining of dry mouth on fluid restriction and current NPO status Objective Vitals Vital Signs Date Time Temp Pulse Resp B/P (MAP) Pulse Ox O2 Delivery O2 Flow Rate FiO2 01/09/17 10:17 66 01/09/17 09:11 97.8 68 22 141/63 (89) 93 01/09/17 09:11 93 Nasal Cannula 2.00 01/09/17 09:00 64 01/09/17 08:00 64 01/09/17 07:00 67 01/09/17 06:00 68 01/09/17 05:59 69 01/09/17 04:36 67 01/09/17 04:00 97.9 68 20 133/55 (81) 92 01/09/17 03:00 67 20 01/09/17 02:00 69 01/09/17 00:00 72 01/08/17 23:00 97.9 72 20 139/58 (85) 93 01/08/17 23:00 72 01/08/17 22:00 74 01/08/17 20:19 93 Nasal Cannula 3.00 01/08/17 20:00 78 01/08/17 20:00 97.9 78 20 145/60 (88) 92 01/08/17 19:00 92 Nasal Cannula 2.00 01/08/17 19:00 68 01/08/17 18:00 68 01/08/17 17:00 68 01/08/17 16:30 98.2 69 20 119/51 (73) 90 01/08/17 16:00 66 01/08/17 15:00 66 01/08/17 14:00 66 01/08/17 13:00 66 01/08/17 12:37 98.3 66 18 123/59 (80) 92 01/08/17 12:33 92 Nasal Cannula 2.00 01/08/17 12:33 92 Nasal Cannula 2.00 01/08/17 12:00 66 I/O 01/08/17 01/08/17 01/08/17 01/09/17 01/09/17 01/09/17 07:00 15:00 23:00 07:00 15:00 23:00 Intake Total 480 ml 340 ml 240 ml Output Total 850 ml 851 ml 453 ml Balance -370 ml -511 ml -213 ml Intake Oral 480 ml 340 ml 240 ml Output Urine Total 850 ml 850 ml 450 ml Stool Total 1 ml 3 ml # Bowel Movements 0 Result Diagram: 01/09/17 0552 01/09/17 0552 Imaging Last Impressions Chest X-Ray 01/06/17 0000 Signed Impressions: Service Date/Time: Friday, January 06, 2017 13:18 - CONCLUSION: 1. There appears to be some interval worsening of the bilateral pleural effusions. 2. Stable concomitant atelectatic changes in the left base. Zachary Coughlin MD CT Angiography 01/04/17 0000 Signed Impressions: Service Date/Time: December 12:06 - CONCLUSION: No evidence of pulmonary embolism Quentin Eddy MD Thoracentesis Ultrasound 01/03/17 0000 Signed Impressions: Service Date/Time: Tuesday, January 03, 2017 13:18 - CONCLUSION: Uncomplicated ultrasound guided right thoracentesis with removal of 800 cc of clear yellow fluid. Quentin Roman MD Chest Ultrasound 01/02/17 0000 Signed Impressions: Service Date/Time: Monday, January 02, 2017 13:36 - CONCLUSION: There is a small to moderate size simple appearing right pleural effusion. No geovani was performed. Quentin Roman MD Objective Remarks GENERAL: This is a well-nourished, well-developed patient, frail and weak CARDIOVASCULAR: Regular rate and rhythm without murmurs, gallops, or rubs. RESPIRATORY: Decreased breath sounds but equal bilaterally. No wheezes, rales, or rhonchi. GASTROINTESTINAL: Abdomen soft, non-tender, nondistended. Normal active bowel sounds MUSCULOSKELETAL: Extremities without clubbing, cyanosis, or edema. NEURO: Alert & Oriented x4 to person, place, time, situation. Moves all ext x4 A/P Problem List: (1) COPD (chronic obstructive pulmonary disease) ICD Code: J44.9 - Chronic obstructive pulmonary disease Status: Chronic Plan: Patient oxygen dependent (2) CAD (coronary artery disease) ICD Code: I25.10 - CAD (coronary artery disease) Status: Chronic Plan: Cardiac bypass 2006 Continue hydralazine and Isordil along with Plavix, aspirin, Norvasc and metoprolol Poorly adherent with tobacco cessation (3) Hematochezia ICD Code: K92.1 - Melena Plan: Patient for lower and upper endoscopy today Continue nothing by mouth status Follow-up with gastroenterology postprocedure Transfuse as needed (4) Pleural effusion ICD Code: J90 - Pleural effusion, not elsewhere classified Plan: Status post thoracentesis of 800 mL transudate likely due to CHF Continue Lasix and follow clinically Patient on home O2 (5) CHF exacerbation ICD Code: I50.9 - Heart failure, unspecified Status: Acute Plan: Continue to diuresis with fluid restriction 1800 ml Follow electrolytes EF of 40-45%, continue hydralazine (patient allergy to lisinopril and losartan) (6) 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
[2017-01-09] MEDS ORDERED: PHENYLEPH/NS 1000 MCG/10 ML SYR IV ONE (12:00)
[2017-01-09] MEDS ORDERED: MIDAZOLAM HCL 2 MG/2 ML VIAL IV ONE (12:00)
[2017-01-09] MEDS ORDERED: LIDOCAINE HCL 1% PF 5 ML AMPULE OTHER ONE (12:00)
[2017-01-09] MEDS ORDERED: PROPOFOL 200 MG/20 ML AMP IV ONE (12:00)
[2017-01-09] MEDS ORDERED: SOD PHOSPHATE/SOD BIPHOSPHATE (ADULT) ENEMA 133ML RECTAL ONE ×2 (13:00→14:00)
[2017-01-09 13:03] LABS: TRANSFERRIN IRON PROFILE 177 MG/DL (200-360)
[2017-01-09] MEDS ORDERED: KETAMINE HCL 500 MG/10 ML VIAL ONE (16:57)
[2017-01-09] MEDS ORDERED: DO NOT ADM ANY ANTICOAGULANT DRUGS PRN (17:45)
--- NOTE | 2017-01-09 18:05 | PD.PROCEDR ---
GI Procedure REFERRING PHYSICIAN Marilou PROCEDURE PERFORMED EGD with biopsy followed by colonoscopy with biopsy INDICATION FOR PROCEDURE Rectal bleeding and diarrhea PROCEDURE: The procedure, risks and benefits were discussed with Ms. Gordon and informed consent was obtained. Anesthesia sedated her with Diprivan. She was placed in the left lateral decubitus position. EGD: The Pentax videoscope was introduced through the oropharynx and advanced to the second portion of the duodenum under direct visualization. Retroflexion was performed in the stomach. FINDINGS: Esophagus there was some distal esophageal mucosal erythema suggestive of esophagitis this was biopsied otherwise the rest of the esophagus was unremarkable Stomach there was patchy erythema in the antrum and the gastric body no ulcerations or erosions no blood or bleeding this was biopsied from the antrum The duodenum this appeared to be normal but random biopsies were taken for further evaluation of diarrhea Colonoscopy: The Pentax videoscope was introduced through the rectum and advanced to cecum where the ileocecal valve and appendiceal orifice were identified. Retroflexion was performed in the rectum. Colonic prep was fair FINDINGS: Colonic withdrawal time greater than 6 minutes as the scope slowly withdrawn colonic mucosa was carefully inspected the patient was noted to have some patchy erythema noted in the rectum and sigmoid specifically with whitish patches suggestive of possible C. difficile but certainly could be something else and to a much lesser extent there was some patchy erythema in the transverse colon biopsies were taken from the ascending transverse descending sigmoid and rectum the patient was noted to have scattered diverticulosis throughout the colon but specifically in the sigmoid region retroflexion in the rectum was unremarkable and so was the rectal examination ESTIMATED BLOOD LOSS: None SPECIMENS REMOVED: Esophageal, gastric, duodenal, colonic samples COMPLICATIONS: None IMPRESSION: Esophagitis mild gastritis Colitis Diverticulosis PLAN: Await biopsies Continue with current supportive care Advance diet Monitor labs Anselmo Arthur MD Jan 09, 2017 18:05
[2017-01-09] MEDS: ATORVASTATIN 80 MG TAB PO SCH (21:17)
[2017-01-10] VITALS (21 sets, daily range): BP systolic 118–142; BP diastolic 53–68; PULSE 61–70; RESP 18; TEMP 98.1–98.2; O2SAT 92–96
[2017-01-10] MEDS: RESP: ALBUTEROL 2.5 MG/IPRATROPIUM 0.5 MG NEB (PRN) NEB ×4 (02:43→23:40)
[2017-01-10] MEDS: ACETAMINOPHEN/HYDROcodone 325 MG/5 MG TAB PO PRN ×3 (04:32→22:24)
[2017-01-10] MEDS: hydrALAZINE HCL 10 MG TAB PO SCH ×3 (04:32→21:43)
[2017-01-10 06:23] LABS: HEMATOCRIT 25.4 % (35.0-46.0); MEAN CELL VOLUME 88.5 FL (80.0-100.0); MEAN CORPUSCULAR HEMOGLOBIN 28.7 PG (27.0-34.0); MEAN CORPUSCULAR HGB CONC 32.5 % (32.0-36.0); PLATELET COUNT 158 TH/MM3 (150-450); RED BLOOD COUNT 2.87 MIL/MM3 (4.00-5.30); RED CELL DISTRIBUTION WIDTH 16.2 % (11.6-17.2); REVIEW FLAG FINAL; WHITE BLOOD COUNT 4.2 TH/MM3 (4.0-11.0)
[2017-01-10 06:52] LABS: ANION GAP 8 MEQ/L (5-15); AST (GOT) 31 U/L (15-37); BICARBONATE 31.3 MEQ/L (21.0-32.0); BLOOD UREA NITROGEN 21 MG/DL (7-18); CHLORIDE 98 MEQ/L (98-107); GLOMERULAR FILTRATION RATE 44 ML/MIN (>89); POTASSIUM 3.5 MEQ/L (3.5-5.1); SODIUM (NA) 137 MEQ/L (136-145)
[2017-01-10 06:53] LABS: ALT (GPT) 48 U/L (10-53)
[2017-01-10 06:55] LABS: ALKALINE PHOSPHATASE 93 U/L (45-117); TOTAL BILIRUBIN ADULT 0.6 MG/DL (0.2-1.0)
[2017-01-10] MEDS: FUROSEMIDE 40 MG TAB PO SCH ×2 (09:11→18:00)
[2017-01-10] MEDS: FLUoxetine HCL 20 MG CAP PO SCH ×2 (09:12→21:43)
[2017-01-10] MEDS: ASPIRIN EC 81 MG TABEC PO SCH (09:12)
[2017-01-10] MEDS: amLODIPine BESYLATE 5 MG TAB PO SCH ×2 (09:12→21:42)
[2017-01-10] MEDS: SODIUM CHLORIDE 0.9% FLUSH 10 ML FLUSH IV FLUSH SCH ×2 (09:12→21:42)
[2017-01-10] MEDS: POTASSIUM CHLORIDE 20 MEQ CONTROLLED RELEASE TAB PO SCH ×3 (09:12→18:00)
[2017-01-10] MEDS: ISOSORBIDE DINITRATE 20 MG TAB PO SCH ×3 (09:12→18:00)
[2017-01-10] MEDS: METOPROLOL TARTRATE 25 MG TAB PO SCH ×2 (09:12→21:44)
[2017-01-10] MEDS: DOXYCYCLINE HYCLATE 100 MG TAB PO SCH ×2 (09:12→21:43)
[2017-01-10] MEDS: CHOLESTYRAMINE 4 GM PACKET PO SCH ×2 (09:12→21:00)
[2017-01-10] MEDS: TIOTROPIUM BROMIDE 18 MCG INH INH SCH (09:12)
[2017-01-10] MEDS: PANTOPRAZOLE SODIUM 40 MG VIAL IV PUSH SCH (09:13)
--- NOTE | 2017-01-10 11:09 | HHI.GIFU ---
Subjective Remarks Up in chair. Eating breakfast, tolerating this. Abdominal pain much improved. 3 loose stools yesterday, none so far today. (Robyn Reed) Objective Vitals I&O Vital Signs Date Time Temp Pulse Resp B/P (MAP) Pulse Ox O2 Delivery O2 Flow Rate FiO2 01/10/17 09:24 92 Nasal Cannula 3.00 01/10/17 06:01 62 01/10/17 05:01 63 01/10/17 04:01 62 01/10/17 03:01 98.2 61 18 128/53 (78) 92 01/10/17 03:01 61 01/10/17 02:45 94 Nasal Cannula 3.00 01/10/17 02:01 62 01/10/17 01:01 63 01/10/17 00:01 70 01/09/17 23:01 72 01/09/17 23:01 98.4 72 16 122/55 (77) 94 01/09/17 22:01 71 01/09/17 21:01 72 01/09/17 20:01 70 01/09/17 19:35 96 Nasal Cannula 3.00 01/09/17 19:01 94 Nasal Cannula 3.00 01/09/17 18:45 98.5 66 16 148/63 (91) 97 01/09/17 18:15 97.7 62 19 156/67 (96) 96 Nasal Cannula 3 01/09/17 18:00 62 19 149/66 (93) 96 Nasal Cannula 3 01/09/17 17:47 97.7 62 17 152/64 (93) 95 Nasal Cannula 3 01/09/17 16:45 65 14 139/67 (91) 96 01/09/17 16:30 66 14 141/64 (89) 97 01/09/17 16:10 Nasal Cannula 3 01/09/17 16:10 98.4 68 12 155/67 (96) 93 01/09/17 16:10 68 01/09/17 12:44 97.8 64 20 151/64 (93) 92 I/O 01/09/17 01/09/17 01/09/17 01/10/17 01/10/17 01/10/17 07:00 15:00 23:00 07:00 15:00 23:00 Intake Total 240 ml 100 ml 600 ml Output Total 453 ml 400 ml Balance -213 ml 100 ml 200 ml Intake Oral 240 ml 0 ml 600 ml IV Total 0 ml Other 100 ml Output Urine Total 450 ml 400 ml Stool Total 3 ml # Voids 0 # Bowel Movements 1 Laboratory Laboratory Tests Test 01/10/17 05:10 White Blood Count 4.2 Red Blood Count 2.87 Hemoglobin 8.3 Hematocrit 25.4 Mean Corpuscular Volume 88.5 Mean Corpuscular Hemoglobin 28.7 Mean Corpuscular Hemoglobin Concent 32.5 Red Cell Distribution Width 16.2 Platelet Count 158 Mean Platelet Volume 9.8 Blood Urea Nitrogen 21 Creatinine 1.20 Random Glucose 69 Total Protein 5.3 Albumin 2.3 Calcium Level 8.2 Alkaline Phosphatase 93 Aspartate Amino Transf (AST/SGOT) 31 Alanine Aminotransferase (ALT/SGPT) 48 Total Bilirubin 0.6 Sodium Level 137 Potassium Level 3.5 Chloride Level 98 Carbon Dioxide Level 31.3 Anion Gap 8 Estimat Glomerular Filtration Rate 44 Date/Time Source Procedure Growth Status 01/03/17 14:00 Fluid Pleural Fluid Fungal Smear - Final NO FUNGAL ELEMENTS SEEN. Resulted 01/03/17 14:00 Fluid Pleural Fluid Fungal Culture Pending Resulted 01/06/17 10:10 Stool Stool Stool Occult Blood (RENAE) - Final HEMOCCULT POSITIVE Complete Imaging Last Impressions Chest X-Ray 01/06/17 0000 Signed Impressions: Service Date/Time: Friday, January 06, 2017 13:18 - CONCLUSION: 1. There appears to be some interval worsening of the bilateral pleural effusions. 2. Stable concomitant atelectatic changes in the left base. Zachary Coughlin MD CT Angiography 01/04/17 0000 Signed Impressions: Service Date/Time: December 12:06 - CONCLUSION: No evidence of pulmonary embolism Quentin Eddy MD Thoracentesis Ultrasound 01/03/17 0000 Signed Impressions: Service Date/Time: Tuesday, January 03, 2017 13:18 - CONCLUSION: Uncomplicated ultrasound guided right thoracentesis with removal of 800 cc of clear yellow fluid. Quentin Roman MD Chest Ultrasound 01/02/17 0000 Signed Impressions: Service Date/Time: Monday, January 02, 2017 13:36 - CONCLUSION: There is a small to moderate size simple appearing right pleural effusion. No geovani was performed. Quentin Roman MD Physical Exam HEENT: Normocephalic; atraumatic; no jaundice. CHEST: CTA, diminished. CARDIAC: RRR ABDOMEN: Soft, nondistended, nontender; no hepatosplenomegaly; bowel sounds are present. EXTREMITIES: No clubbing, cyanosis, or edema. SKIN: pale; no rash; no jaundice. RESIDENTIAL [employer]ING [employer]PENTER: AO X 3, weak (Robyn Reed) Assessment and Plan Plan ASSESSMENT - Lower GIB with bloody diarrhea. S/P EGD/Colonoscopy (01/09/17)----> Esophagitis mild, gastritis, Colitis, Diverticulosis. Pathology pending. HH stable 8.3.4. - Diarrhea with recent hx of CDiff. Recent hx C. Diff, 12/19 pos epid 027, not currently on treatment. Will await path. Check CDiff. Clinically states improving. Had 3 loose stools yesterday, none today. - COPD, exacerbation. Pleural effusion. S/P thoracentesis. - CHF, NSTEMI, per primary. Cardiology following PLAN - MICK - Await pathology - PPI - Send stool for CDiff - Supportive care - Further recommendations to follow based on results of above - Pt seen and examined by Dr. Arthur and myself and this note is written on his behalf. (Robyn Reed) Physician Comments Patient seen and examined Agree with above Continue with current supportive care Monitor labs (Anselmo Arthur MD) Robyn Reed Jan 10, 2017 11:09 Anselmo Arthur MD Jan 10, 2017 18:37
--- NOTE | 2017-01-10 12:24 | HHI.PR ---
Subjective Remarks Patient seen today in follow-up for GI bleed, non-ST elevation DE and for COPD exacerbation. Endoscopy yesterday did show some gastritis, esophagitis and colitis C. difficile pending (patient with a history of C. difficile) COPD appears improved and patient requiring 2-3 L of O2 No further bleeding noted and hemoglobin remained stable without transfusion She is complaining of left shoulder pain from her previous rotator cuff injury. Pain is usually improved with rest and with heat Objective Vitals Vital Signs Date Time Temp Pulse Resp B/P (MAP) Pulse Ox O2 Delivery O2 Flow Rate FiO2 01/10/17 09:24 92 Nasal Cannula 3.00 01/10/17 06:01 62 01/10/17 05:01 63 01/10/17 04:01 62 01/10/17 03:01 98.2 61 18 128/53 (78) 92 01/10/17 03:01 61 01/10/17 02:45 94 Nasal Cannula 3.00 01/10/17 02:01 62 01/10/17 01:01 63 01/10/17 00:01 70 01/09/17 23:01 72 01/09/17 23:01 98.4 72 16 122/55 (77) 94 01/09/17 22:01 71 01/09/17 21:01 72 01/09/17 20:01 70 01/09/17 19:35 96 Nasal Cannula 3.00 01/09/17 19:01 94 Nasal Cannula 3.00 01/09/17 18:45 98.5 66 16 148/63 (91) 97 01/09/17 18:15 97.7 62 19 156/67 (96) 96 Nasal Cannula 3 01/09/17 18:00 62 19 149/66 (93) 96 Nasal Cannula 3 01/09/17 17:47 97.7 62 17 152/64 (93) 95 Nasal Cannula 3 01/09/17 16:45 65 14 139/67 (91) 96 01/09/17 16:30 66 14 141/64 (89) 97 01/09/17 16:10 Nasal Cannula 3 01/09/17 16:10 98.4 68 12 155/67 (96) 93 01/09/17 16:10 68 01/09/17 12:44 97.8 64 20 151/64 (93) 92 I/O 01/09/17 01/09/17 01/09/17 01/10/17 01/10/17 01/10/17 07:00 15:00 23:00 07:00 15:00 23:00 Intake Total 240 ml 100 ml 600 ml Output Total 453 ml 400 ml Balance -213 ml 100 ml 200 ml Intake Oral 240 ml 0 ml 600 ml IV Total 0 ml Other 100 ml Output Urine Total 450 ml 400 ml Stool Total 3 ml # Voids 0 # Bowel Movements 1 Result Diagram: 01/10/1750901/10/17509 Objective Remarks GENERAL: This is a well-nourished, well-developed patient, frail and weak and planning of left shoulder discomfort CARDIOVASCULAR: Regular rate and rhythm without murmurs, gallops, or rubs. RESPIRATORY: Decreased breath sounds but equal bilaterally. No wheezes, rales, or rhonchi. GASTROINTESTINAL: Abdomen soft, non-tender, nondistended. Normal active bowel sounds MUSCULOSKELETAL: Extremities without clubbing, cyanosis, or edema. NEURO: Alert & Oriented x4 to person, place, time, situation. Moves all ext x4 A/P Problem List: (1) COPD (chronic obstructive pulmonary disease) ICD Code: J44.9 - Chronic obstructive pulmonary disease Status: Chronic Plan: Patient oxygen dependent Continue bronchodilators (2) CAD (coronary artery disease) ICD Code: I25.10 - CAD (coronary artery disease) Status: Chronic Plan: Cardiac bypass 2005 Continue hydralazine and Isordil along with asa, Norvasc and metoprolol Plavix held due to bleeding Poorly adherent with tobacco cessation (3) Hematochezia ICD Code: K92.1 - Melena Plan: Status post upper and lower endoscopy with noted gastritis, esophagitis and colitis in line C. difficile pending Follow for transfusion needs Diet advanced (4) Pleural effusion ICD Code: J90 - Pleural effusion, not elsewhere classified Plan: Status post thoracentesis of 800 mL transudate likely due to CHF Continue Lasix and follow clinically Patient on home O2 (5) CHF exacerbation ICD Code: I50.9 - Heart failure, unspecified Status: Acute Plan: Continue to diuresis with fluid restriction 1800 ml Follow electrolytes EF of 40-45%, continue hydralazine (patient allergy to lisinopril and losartan) (6) Anemia due to GI blood loss ICD Code: D50.0 - Iron deficiency anemia secondary to blood loss (chronic) Plan: Transfuse as needed to keep hemoglobin greater than 7 due to history of coronary artery disease Appears to have iron deficiency anemia as well as anemia of chronic disease We'll add iron (7) Hypokalemia ICD Code: E87.6 - Hypokalemia Plan: Continue potassium 3 times a day Assessment and Plan Transferred to [facility] catheter teds/scds Discharge Planning home with C when stable Florina De La Cruz MD Jan 10, 2017 12:24
--- NOTE | 2017-01-10 16:00 | HHI.PR ---
Subjective Remarks 71 YOWF with CAD, multiple stents, CHF Pl eff Breathing better No Fever Cytology negative On NC Objective Vital Signs Vital Signs Date Time Temp Pulse Resp B/P (MAP) Pulse Ox O2 Delivery O2 Flow Rate FiO2 01/10/17 15:00 98.2 65 18 130/62 (84) 94 01/10/17 15:00 62 01/10/17 14:00 70 01/10/17 13:00 62 01/10/17 12:00 70 01/10/17 11:00 62 01/10/17 11:00 98.2 65 18 124/68 (86) 94 01/10/17 10:00 70 01/10/17 09:24 92 Nasal Cannula 3.00 01/10/17 09:00 63 01/10/17 08:00 69 01/10/17 07:00 94 Nasal Cannula 3.00 01/10/17 07:00 62 01/10/17 07:00 98.2 65 18 118/60 (79) 94 01/10/17 06:01 62 01/10/17 05:01 63 01/10/17 04:01 62 01/10/17 03:01 98.2 61 18 128/53 (78) 92 01/10/17 03:01 61 01/10/17 02:45 94 Nasal Cannula 3.00 01/10/17 02:01 62 01/10/17 01:01 63 01/10/17 00:01 70 01/09/17 23:01 72 01/09/17 23:01 98.4 72 16 122/55 (77) 94 01/09/17 22:01 71 01/09/17 21:01 72 01/09/17 20:01 70 01/09/17 19:35 96 Nasal Cannula 3.00 01/09/17 19:01 94 Nasal Cannula 3.00 01/09/17 18:45 98.5 66 16 148/63 (91) 97 01/09/17 18:15 97.7 62 19 156/67 (96) 96 Nasal Cannula 3 01/09/17 18:00 62 19 149/66 (93) 96 Nasal Cannula 3 01/09/17 17:47 97.7 62 17 152/64 (93) 95 Nasal Cannula 3 01/09/17 16:45 65 14 139/67 (91) 96 01/09/17 16:30 66 14 141/64 (89) 97 01/09/17 16:10 Nasal Cannula 3 01/09/17 16:10 98.4 68 12 155/67 (96) 93 01/09/17 16:10 68 I/O 01/09/17 01/09/17 01/09/17 01/10/17 01/10/17 01/10/17 07:00 15:00 23:00 07:00 15:00 23:00 Intake Total 240 ml 100 ml 600 ml Output Total 453 ml 400 ml Balance -213 ml 100 ml 200 ml Intake Oral 240 ml 0 ml 600 ml IV Total 0 ml Other 100 ml Output Urine Total 450 ml 400 ml Stool Total 3 ml # Voids 0 # Bowel Movements 1 Result Diagram: 01/10/17 0501/10/17 05 Objective Remarks GENERAL: MBMN WF, mild sob SKIN: Warm and dry. HEAD: Normocephalic. EYES: No scleral icterus. No injection or drainage. NECK: Supple, trachea midline. No JVD or lymphadenopathy. CARDIOVASCULAR: Regular rate and rhythm without murmurs, gallops, or rubs. RESPIRATORY: Breath sounds equal bilaterally. No accessory muscle use. GASTROINTESTINAL: Abdomen soft, non-tender, nondistended. MUSCULOSKELETAL: No cyanosis, or edema. BACK: Nontender without obvious deformity. No CVA tenderness. A/P Assessment and Plan Pleural effusion, s/p TC CHF COPD CAD H/O Nicotine use PLAN: Diurease Supplement 02 Cytology Negative Monitor H/H Jayy Bhakta MD Jan 10, 2017 16:00
[2017-01-10] MEDS: PANTOPRAZOLE SOD 40 MG DELAYED RELEASE TAB PO SCH (21:42)
[2017-01-10] MEDS: FERROUS SULFATE 325 MG (65 MG ELEMENTAL IRON) TAB PO SCH (21:42)
[2017-01-10] MEDS: ATORVASTATIN 80 MG TAB PO SCH (21:43)
[2017-01-10] MEDS: ALPRAZolam 0.5 MG TAB PO PRN (22:22)
[2017-01-11] VITALS (9 sets, daily range): BP systolic 113–140; BP diastolic 55–63; PULSE 65–72; RESP 18–20; TEMP 97.2–98.3; O2SAT 94–98
[2017-01-11] MEDS: hydrALAZINE HCL 10 MG TAB PO SCH ×3 (06:18→21:07)
[2017-01-11] MEDS: RESP: ALBUTEROL 2.5 MG/IPRATROPIUM 0.5 MG NEB (PRN) NEB ×2 (06:22→11:50)
[2017-01-11] MEDS: ACETAMINOPHEN/HYDROcodone 325 MG/5 MG TAB PO PRN ×2 (09:28→17:53)
[2017-01-11] MEDS: FERROUS SULFATE 325 MG (65 MG ELEMENTAL IRON) TAB PO SCH ×2 (09:28→21:03)
[2017-01-11] MEDS: FLUoxetine HCL 20 MG CAP PO SCH ×2 (09:28→21:07)
[2017-01-11] MEDS: amLODIPine BESYLATE 5 MG TAB PO SCH ×2 (09:29→21:03)
[2017-01-11] MEDS: PANTOPRAZOLE SOD 40 MG DELAYED RELEASE TAB PO SCH ×2 (09:29→21:03)
[2017-01-11] MEDS: POTASSIUM CHLORIDE 20 MEQ CONTROLLED RELEASE TAB PO SCH ×3 (09:29→17:53)
[2017-01-11] MEDS: FUROSEMIDE 40 MG TAB PO SCH (09:29)
[2017-01-11] MEDS: ASPIRIN EC 81 MG TABEC PO SCH (09:29)
[2017-01-11] MEDS: CHOLESTYRAMINE 4 GM PACKET PO SCH ×2 (09:29→20:58)
[2017-01-11] MEDS: DOXYCYCLINE HYCLATE 100 MG TAB PO SCH ×2 (09:29→21:02)
[2017-01-11] MEDS: METOPROLOL TARTRATE 25 MG TAB PO SCH ×2 (09:29→21:02)
[2017-01-11] MEDS: ISOSORBIDE DINITRATE 20 MG TAB PO SCH ×3 (09:31→17:52)
[2017-01-11] MEDS: SODIUM CHLORIDE 0.9% FLUSH 10 ML FLUSH IV FLUSH SCH ×2 (09:43→21:03)
[2017-01-11 10:58] LABS: AUTOMATED NEUTROPHIL # 3.3 TH/MM3 (1.8-7.7); BASOPHIL % 0.4 % (0.0-2.0); EOSINOPHIL % 0.6 % (0.0-4.0); HEMATOCRIT 25.5 % (35.0-46.0); HEMO FLAGS DIFF FINAL; LYMPH % 24.4 % (9.0-44.0); LYMPHOCYTE # 1.2 TH/MM3 (1.0-4.8); MEAN CELL VOLUME 88.9 FL (80.0-100.0); MEAN CORPUSCULAR HGB CONC 32.6 % (32.0-36.0); MONO % 7.3 % (0.0-8.0); NEUT % 67.3 % (16.0-70.0); PLATELET COUNT 200 TH/MM3 (150-450); RED BLOOD COUNT 2.87 MIL/MM3 (4.00-5.30); RED CELL DISTRIBUTION WIDTH 16.1 % (11.6-17.2); WHITE BLOOD COUNT 4.9 TH/MM3 (4.0-11.0)
[2017-01-11 11:26] LABS: BICARBONATE 31.2 MEQ/L (21.0-32.0); POTASSIUM 3.7 MEQ/L (3.5-5.1)
--- NOTE | 2017-01-11 12:06 | HHI.PR ---
Subjective Remarks Follow-up for multiple medical condition was assessment and plan Patient has increased shortness of breathing today. Denies any cough. She also complained of burning in her pelvic area. She remains afebrile. Objective Vitals Vital Signs Date Time Temp Pulse Resp B/P (MAP) Pulse Ox O2 Delivery O2 Flow Rate FiO2 01/11/17 09:45 Nasal Cannula 4.00 01/11/17 08:00 98.0 69 18 113/57 (75) 96 01/11/17 04:00 97.4 65 18 140/63 (88) 95 01/11/17 00:47 Nasal Cannula 4.00 01/11/17 00:00 97.2 72 18 125/62 (83) 98 01/10/17 23:44 95 Nasal Cannula 3.00 01/10/17 20:32 96 Nasal Cannula 2.00 01/10/17 20:00 98.1 66 18 142/58 (86) 93 01/10/17 20:00 93 Nasal Cannula 3.00 01/10/17 15:00 98.2 65 18 130/62 (84) 94 01/10/17 15:00 62 01/10/17 14:00 70 01/10/17 13:00 62 01/10/17 12:00 70 I/O 01/10/17 01/10/17 01/10/17 01/11/17 01/11/17 01/11/17 07:00 15:00 23:00 07:00 15:00 23:00 Intake Total 600 ml 400 ml 240 ml Output Total 400 ml 500 ml Balance 200 ml -100 ml 240 ml Intake Oral 600 ml 400 ml 240 ml Output Urine Total 400 ml 500 ml # Voids 1 # Bowel Movements 1 0 0 Result Diagram: 01/11/17 1021 01/11/17 1021 Objective Remarks GENERAL: mildNAD CARDIOVASCULAR: Regular rate and rhythm without murmurs, gallops, or rubs. RESPIRATORY: Increased respiratory rate. Decreased breath sounds on the right mid to lower base of the lungs. Scattered wheezing. No rhonchi noted. No accessory muscle use. GASTROINTESTINAL: Abdomen soft, non-tender, nondistended. MUSCULOSKELETAL: No cyanosis, or edema. PELVIC:beefy red macular rash in the perineum and inner thigh. Medications and IVs Current Medications Sodium Chloride (NS Flush) 2 ml UNSCH PRN IVF FLUSH AFTER USING IV ACCESS; Start 01/01/17 at 16:45; Stop 01/01/17 at 19:22; Status DC Sodium Chloride (NS Flush) 2 ml UNSCH PRN IV FLUSH FLUSH AFTER USING IV ACCESS ; Start 01/01/17 at 18:30 Sodium Chloride (NS Flush) 2 ml BID IV FLUSH Last administered on 01/11/17 09 :43; Start 01/01/17 at 21:00 Naloxone HCl (Narcan Inj) 0.4 mg UNSCH PRN IV PUSH SEE LABEL COMMENTS; Start 01/01/17 at 18:30 Furosemide (Lasix Inj) 40 mg ONCE ONCE IV PUSH Last administered on 01/01/17 18:50; Start 01/01/17 at 18:30; Stop 01/01/17 at 18:31; Status DC Furosemide (Lasix Inj) 40 mg BID@,18 IV PUSH Last administered on 01/08/17 09:38; Start 01/02/17 at 09:00; Stop 01/08/17 at 10:14; Status DC Enoxaparin Sodium (Lovenox Inj) 80 mg Q12H SQ Last administered on 01/04/17 20 :49; Start 01/01/17 at 20:00; Stop 01/10/17 at 12:23; Status DC Alprazolam (Xanax) 0.5 mg Q8H PRN PO ANXIETY Last administered on 01/10/17 22 :22; Start 01/01/17 at 19:45 Amlodipine Besylate (Norvasc) 5 mg BID PO Last administered on 01/11/17 09:29 ; Start 01/01/17 at 21:00 Aspirin (Ecotrin Ec) 81 mg DAILY PO Last administered on 01/04/17 09:24; Start 01/02/17 at 09:00; Stop 01/08/17 at 11:02; Status DC Atorvastatin Calcium (Lipitor) 80 mg HS PO Last administered on 01/10/17 21: 43; Start 01/01/17 at 21:00 Cholestyramine Resin (Questran 4 Gm Pkt) 4 gm Q12HR PO Last administered on 09:29; Start 01/01/17 at 21:00 Clopidogrel Bisulfate (Plavix) 75 mg DAILY PO Last administered on 01/04/17 09 :24; Start 01/02/17 at 09:00; Status Future Hold Doxycycline Hyclate (Vibratab) 100 mg BID PO Last administered on 01/11/17 09 :29; Start 01/01/17 at 21:00 Fluoxetine HCl (PROzac) 20 mg BID PO Last administered on 01/11/17 09:28; Start 01/01/17 at 21:00 Acetaminophen/ Hydrocodone Bitart ([place] 5-325 Mg) 1 tab Q6H PRN PO PAIN 1-10 Last administered on 01/11/17 09:28; Start 01/01/17 at 19:45 Albuterol/ Ipratropium (Duoneb Neb) 1 ampule Q6HR WHILE AWAKE NEB NEB Last administered on 01/05/17 18:56; Start 01/01/17 at 20:00; Stop 01/05/17 at 19: 59; Status DC Isosorbide Mononitrate (Imdur) 30 mg DAILY PO Last administered on 01/08/17 09:38; Start 01/02/17 at 09:00; Stop 01/08/17 at 11:09; Status DC Metoprolol Tartrate (Lopressor) 75 mg BID PO Last administered on 01/11/17 09 :29; Start 01/01/17 at 21:00 Potassium Chloride (KCl) 20 meq DAILY PO ; Start 01/02/17 at 09:00; Stop at 09:29; Status DC Temazepam (Restoril) 15 mg HS PRN PO INSOMNIA Last administered on 01/07/17 20:47; Start 01/01/17 at 19:45 Tiotropium Upperglade (Spiriva Inh) 18 mcg DAILY INH Last administered on 09:12; Start 01/01/17 at 21:00 Albuterol/ Ipratropium (Duoneb Neb) 1 ampule Q6HR NEB NEB Last administered on 01/05/17 09:34; Start 01/01/17 at 22:00; Stop 01/05/17 at 21:59; Status DC Albuterol/ Ipratropium (Duoneb Neb) 1 ampule Q2HR NEB PRN NEB wheezing Last administered on 01/11/17 11:50; Start 01/01/17 at 19:45 Potassium Chloride (KCl) 20 meq Q12HR PO ; Start 01/02/17 at 21:00; Stop at 21:00; Status DC Potassium Chloride (KCl) 40 meq ONCE ONCE PO Last administered on 01/02/17 09 :49; Start 01/02/17 at 09:30; Stop 01/02/17 at 09:35; Status DC Potassium Chloride (KCl) 40 meq ONCE ONCE PO Last administered on 01/02/17 13 :30; Start 01/02/17 at 13:30; Stop 01/02/17 at 13:31; Status DC Nitroglycerin (Nitroglycerin 2% Oint) 0.5 inch Q6HR PRN TOPICAL CHEST PAIN; Start 01/02/17 at 14:15 Potassium Chloride (KCl) 20 meq QID PO Last administered on 01/03/17 21:11; Start 01/03/17 at 09:00; Stop 01/04/17 at 08:17; Status DC Magnesium Sulfate/ Dextrose 100 ml @ 100 mls/hr Q1H IV Last administered on 09:00; Start 01/03/17 at 08:00; Stop 01/03/17 at 10:05; Status DC Potassium Chloride (KCl) 20 meq TID PO Last administered on 01/11/17 09:29; Start 01/04/17 at 09:00 Hydralazine HCl (Apresoline) 10 mg Q8HR PO Last administered on 01/11/17 06: 18; Start 01/04/17 at 14:00 Isosorbide Dinitrate (Isordil) 10 mg Q8HR PO Last administered on 01/08/17 14 :10; Start 01/04/17 at 14:00; Stop 01/08/17 at 15:00; Status DC Iohexol (Omnipaque 350 Inj) 50 ml STK-MED ONCE IVCONTRAST Last administered on 01/04/17 12:37; Start 01/04/17 at 12:37; Stop 01/04/17 at 12:38; Status DC Pantoprazole Sodium (Protonix Inj) 40 mg Q12H IV PUSH Last administered on 09:13; Start 01/05/17 at 10:00; Stop 01/10/17 at 12:23; Status DC Acetazolamide (Diamox) 250 mg ONCE ONCE PO Last administered on 01/07/17 18: 17; Start 01/07/17 at 17:30; Stop 01/07/17 at 17:36; Status DC Furosemide (Lasix) 40 mg BID@,18 PO Last administered on 01/11/17 09:29; Start 01/09/17 at 09:00 Aspirin (Ecotrin Ec) 81 mg DAILY PO Last administered on 01/11/17 09:29; Start 01/08/17 at 11:00 Isosorbide Dinitrate (Isordil) 20 mg TID PO Last administered on 01/11/17 09: 31; Start 01/08/17 at 18:00 Polyethylene Glycol/ Electrolytes (Colyte Liq) 4,000 ml ONCE ONCE PO Last administered on 01/08/17 18:18; Start 01/08/17 at 18:00; Stop 01/08/17 at 18 :01; Status DC Sodium Biphosphate/ Sodium Phosphate (Fleets Enema (Adult)) 118 ml ONCE ONCE RECTAL Last administered on 01/09/17 13:37; Start 01/09/17 at 13:00; Stop 01/09/17 at 13:01; Status DC Sodium Biphosphate/ Sodium Phosphate (Fleets Enema (Adult)) 118 ml ONCE ONCE RECTAL Last administered on 01/09/17 13:38; Start 01/09/17 at 14:00; Stop 01/09/17 at 14:01; Status DC Ketamine HCl (Ketalar Inj) 500 mg STK-MED ONCE .ROUTE ; Start 01/09/17 at 16:57 ; Stop 01/09/17 at 16:58; Status DC Miscellaneous Information ALL NURSING DEPARTME... UNSCH PRN .XX SEE LABEL COMMENTS; Start 01/09/17 at 17:45; Stop 01/10/17 at 17:44; Status DC Ferrous Sulfate (Ferrous Sulfate) 325 mg BID PO Last administered on 09:28; Start 01/10/17 at 21:00 Pantoprazole Sodium (Protonix) 40 mg Q12HR PO Last administered on 01/11/17 09:29; Start 01/10/17 at 21:00 Lidocaine HCl (Xylocaine-Mpf 1% Inj) 10 ml STK-MED ONCE OTHER ; Start 01/09/17 at 12:00; Stop 01/10/17 at 15:15; Status DC Phenylephrine HCl (Neosynephrine/ NS 1000 Mcg/10ml Syr) 1,000 mcg STK-MED ONCE IV ; Start 01/09/17 at 12:00; Stop 01/10/17 at 15:15; Status DC Midazolam HCl (Versed Inj) 4 mg STK-MED ONCE IV ; Start 01/09/17 at 12:00; Stop 01/10/17 at 15:15; Status DC Propofol (Diprivan 200 Mg/20 ml Inj) 600 mg STK-MED ONCE IV ; Start 01/09/17 at 12:00; Stop 01/10/17 at 15:15; Status DC A/P Problem List: (1) COPD (chronic obstructive pulmonary disease) ICD Code: J44.9 - Chronic obstructive pulmonary disease Status: Chronic (2) CAD (coronary artery disease) ICD Code: I25.10 - CAD (coronary artery disease) Status: Chronic (3) Hematochezia ICD Code: K92.1 - Melena (4) Pleural effusion ICD Code: J90 - Pleural effusion, not elsewhere classified (5) CHF exacerbation ICD Code: I50.9 - Heart failure, unspecified Status: Acute (6) Anemia due to GI blood loss 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 -Will get a stat chest x-ray and BNP. Unsure if this may be due to COPD exacerbation versus CHF. Difficulty hearing lung sounds. -Will schedule DuoNeb's and schedule steroids pending chest x-ray results. COPD (chronic obstructive pulmonary disease) -Continue current regimen. CAD (coronary artery disease) -Issue cardiac bypass in 2005. -Continue hydralazine and Isordil along with asa, Norvasc and metoprolol -Plavix held due to bleeding. Can restart Plavix once cleared by GI. Hemoglobin been stable. -Poorly adherent with tobacco cessation Hematochezia - Status post upper and lower endoscopy with noted gastritis, esophagitis and colitis in line C. difficile pending -Follow for transfusion needs -Diet advanced Pleural effusion - Status post thoracentesis of 800 mL transudate likely due to CHF -Continue Lasix and follow clinically -Patient on home O2 CHF exacerbation -Patient has decreased urine output. We will get a BNP and chest x-ray. -Continue with current regimen pending workup. -Continue with fluid restriction of 1800 Ya liters. -EF of 40-45%, continue hydralazine (patient allergy to lisinopril and losartan) Anemia due to GI blood loss -Transfuse as needed to keep hemoglobin greater than 8 due to history of coronary artery disease -Appears to have iron deficiency anemia as well as anemia of chronic disease -On iron. Hypokalemia -Replenish as needed. Cindy Sanford MD Jan 11, 2017 12:06
[2017-01-11] MEDS ORDERED: PILL SPLITTER OTHER PRN (13:00)
--- NOTE | 2017-01-11 13:15 | RADRPT ---
EXAM DATE/TIME: 01/11/2017 12:59 [facility] COMPARISON: CHEST EXPIRATION ONLY, January 03, 2017, 14:09. CHEST PA & LAT, September 14, 2014, 16:08. INDICATIONS : Shortness of breath. MEDICAL HISTORY : Myocardial infarction. Chronic obstructive pulmonary disease.Gastroesophageal reflux disease. Congest damon heart failure. SURGICAL HISTORY : CABG. Cardiac stent. Cardiac catheterization. Left breast lumpectomy. ENCOUNTER: Subsequent ACUITY: 1 week PAIN SCORE: 0/10 LOCATION: Bilateral chest FINDINGS: Compared to the prior exam there appears to be improved aeration of the lung manuel. There is some pu lmonary venous congestion. The heart size is enlarged but stable. There is improving bibasilar infilt rates. No definite or significant pleural effusions are seen. There is evidence of previous cardiotho racic surgery. CONCLUSION: 1. Pulmonary venous congestion. 2. Stable cardiomegaly. 3. Improving bibasilar infiltrates. Doroteo Pathak MD on January 11, 2017 at 13:11 Board Certified Radiologist. This report was verified electronically.
[2017-01-11] MEDS: FLUCONAZOLE 100 MG TAB PO SCH (14:30)
[2017-01-11] MEDS: BETAMETHASONE/CLOTRIMAZOLE CREAM 15 GM TOPICAL SCH ×2 (14:36→21:04)
[2017-01-11] MEDS: TIOTROPIUM BROMIDE 18 MCG INH INH SCH (14:36)
--- NOTE | 2017-01-11 15:47 | HHI.PR ---
Subjective Remarks 71 YOWF with CAD, multiple stents, CHF Pl eff Breathing better No Fever Cytology negative On NC Up in Chair Objective Vital Signs Vital Signs Date Time Temp Pulse Resp B/P (MAP) Pulse Ox O2 Delivery O2 Flow Rate FiO2 01/11/17 15:45 70 01/11/17 15:13 Nasal Cannula 4.00 01/11/17 12:35 Nasal Cannula 4.00 01/11/17 12:00 97.9 68 18 124/58 (80) 97 01/11/17 11:50 96 Nasal Cannula 4.50 01/11/17 09:45 Nasal Cannula 4.00 01/11/17 08:00 98.0 69 18 113/57 (75) 96 01/11/17 04:00 97.4 65 18 140/63 (88) 95 01/11/17 00:47 Nasal Cannula 4.00 01/11/17 00:00 97.2 72 18 125/62 (83) 98 01/10/17 23:44 95 Nasal Cannula 3.00 01/10/17 20:32 96 Nasal Cannula 2.00 01/10/17 20:00 98.1 66 18 142/58 (86) 93 01/10/17 20:00 93 Nasal Cannula 3.00 I/O 01/10/17 01/10/17 01/10/17 01/11/17 01/11/17 01/11/17 07:00 15:00 23:00 07:00 15:00 23:00 Intake Total 600 ml 400 ml 240 ml Output Total 400 ml 500 ml Balance 200 ml -100 ml 240 ml Intake Oral 600 ml 400 ml 240 ml Output Urine Total 400 ml 500 ml # Voids 1 # Bowel Movements 1 0 0 Result Diagram: 01/11/17 1021 01/11/17 1021 Objective Remarks GENERAL: MBMN WF, mild sob SKIN: Warm and dry. HEAD: Normocephalic. EYES: No scleral icterus. No injection or drainage. NECK: Supple, trachea midline. No JVD or lymphadenopathy. CARDIOVASCULAR: Regular rate and rhythm without murmurs, gallops, or rubs. RESPIRATORY: Breath sounds equal bilaterally. No accessory muscle use. GASTROINTESTINAL: Abdomen soft, non-tender, nondistended. MUSCULOSKELETAL: No cyanosis, or edema. BACK: Nontender without obvious deformity. No CVA tenderness. A/P Assessment and Plan Pleural effusion, s/p TC CHF COPD CAD H/O Nicotine use PLAN: Diurease Supplement 02 Cytology Negative Monitor H/H Wean 02 Jayy Bhakta MD Jan 11, 2017 15:47
[2017-01-11] MEDS: RESP: ALBUTEROL 2.5 MG/IPRATROPIUM 0.5 MG NEB (SCH) NEB ×3 (16:05→23:13)
--- NOTE | 2017-01-11 16:42 | HHI.GIFU ---
Subjective Remarks Pt in bed, says she's not having a good day. No abd pain, bleeding, no BM today. (Pascale Ruiz) Objective Vitals I&O Vital Signs Date Time Temp Pulse Resp B/P (MAP) Pulse Ox O2 Delivery O2 Flow Rate FiO2 01/11/17 15:45 70 01/11/17 15:13 Nasal Cannula 4.00 01/11/17 12:35 Nasal Cannula 4.00 01/11/17 12:00 97.9 68 18 124/58 (80) 97 01/11/17 11:50 96 Nasal Cannula 4.50 01/11/17 09:45 Nasal Cannula 4.00 01/11/17 08:00 98.0 69 18 113/57 (75) 96 01/11/17 04:00 97.4 65 18 140/63 (88) 95 01/11/17 00:47 Nasal Cannula 4.00 01/11/17 00:00 97.2 72 18 125/62 (83) 98 01/10/17 23:44 95 Nasal Cannula 3.00 01/10/17 20:32 96 Nasal Cannula 2.00 01/10/17 20:00 98.1 66 18 142/58 (86) 93 01/10/17 20:00 93 Nasal Cannula 3.00 I/O 01/10/17 01/10/17 01/10/17 01/11/17 01/11/17 01/11/17 07:00 15:00 23:00 07:00 15:00 23:00 Intake Total 600 ml 400 ml 240 ml Output Total 400 ml 500 ml Balance 200 ml -100 ml 240 ml Intake Oral 600 ml 400 ml 240 ml Output Urine Total 400 ml 500 ml # Voids 1 # Bowel Movements 1 0 0 Laboratory Laboratory Tests Test 01/11/17 10:21 01/11/17 14:55 White Blood Count 4.9 Red Blood Count 2.87 Hemoglobin 8.3 Hematocrit 25.5 Mean Corpuscular Volume 88.9 Mean Corpuscular Hemoglobin 29.0 Mean Corpuscular Hemoglobin Concent 32.6 Red Cell Distribution Width 16.1 Platelet Count 200 Mean Platelet Volume 9.4 Neutrophils (%) (Auto) 67.3 Lymphocytes (%) (Auto) 24.4 Monocytes (%) (Auto) 7.3 Eosinophils (%) (Auto) 0.6 Basophils (%) (Auto) 0.4 Neutrophils # (Auto) 3.3 Lymphocytes # (Auto) 1.2 Monocytes # (Auto) 0.4 Eosinophils # (Auto) 0.0 Basophils # (Auto) 0.0 CBC Comment DIFF FINAL Differential Comment Blood Urea Nitrogen 20 Creatinine 1.17 Random Glucose 141 Calcium Level 8.6 Sodium Level 136 Potassium Level 3.7 Chloride Level 98 Carbon Dioxide Level 31.2 Anion Gap 7 Estimat Glomerular Filtration Rate 46 B-Type Natriuretic Peptide 1551 Date/Time Source Procedure Growth Status 01/03/17 14:00 Fluid Pleural Fluid Fungal Smear - Final NO FUNGAL ELEMENTS SEEN. Resulted 01/03/17 14:00 Fluid Pleural Fluid Fungal Culture - Preliminary NO GROWTH IN 1 WEEK Resulted 01/06/17 10:10 Stool Stool Stool Occult Blood (RENAE) - Final HEMOCCULT POSITIVE Complete Physical Exam HEENT: Normocephalic; atraumatic; no jaundice. CHEST: CTA, diminished. mildly labored respirations CARDIAC: RRR ABDOMEN: Soft, nondistended, nontender; no hepatosplenomegaly; bowel sounds are present. EXTREMITIES: No clubbing, cyanosis, or edema. SKIN: pale; no rash; no jaundice. SURGERY TECH: AO X 3, weak (Pascale Ruiz) Assessment and Plan Plan ASSESSMENT - Lower GIB with bloody diarrhea. S/P EGD/Colonoscopy (01/09/17)----> Esophagitis mild, gastritis, Colitis, Diverticulosis. Pathology pending. HH stable - Diarrhea with recent hx of CDiff. Recent hx C. Diff, 12/19 pos epid 027, not currently on treatment. Will await path. c diff pending. no BM today. - COPD, exacerbation. Pleural effusion. S/P thoracentesis. - CHF, NSTEMI, per primary. Cardiology following PLAN - MICK - Await pathology - PPI - await c diff - Supportive care - Further recommendations to follow based on results of above - Pt seen and examined by Dr. Arthur and myself and this note is written on his behalf. (Pascale Ruiz) Physician Comments Patient seen and examined Agree with above Continue with current supportive care Monitor labs (Anselmo Arthur MD) Pascale Ruiz Jan 11, 2017 16:42 Anselmo Arthur MD Jan 11, 2017 23:22
[2017-01-11] MEDS: FUROSEMIDE 40 MG/4 ML VIAL IV PUSH SCH (17:52)
[2017-01-11] MEDS: ATORVASTATIN 80 MG TAB PO SCH (21:03)
[2017-01-11] MEDS: ALPRAZolam 0.5 MG TAB PO PRN (22:48)
[2017-01-12] VITALS (10 sets, daily range): BP systolic 113–131; BP diastolic 53–64; PULSE 65–101; RESP 18–20; TEMP 97.2–98.1; O2SAT 92–97
[2017-01-12] MEDS: ACETAMINOPHEN/HYDROcodone 325 MG/5 MG TAB PO PRN ×4 (02:06→23:06)
[2017-01-12] MEDS: RESP: ALBUTEROL 2.5 MG/IPRATROPIUM 0.5 MG NEB (SCH) NEB ×5 (04:18→19:24)
[2017-01-12] MEDS: hydrALAZINE HCL 10 MG TAB PO SCH ×3 (05:05→21:17)
[2017-01-12] MEDS: SODIUM CHLORIDE 0.9% FLUSH 10 ML FLUSH IV FLUSH SCH ×2 (07:37→21:12)
[2017-01-12] MEDS: amLODIPine BESYLATE 5 MG TAB PO SCH ×2 (08:29→21:16)
[2017-01-12] MEDS: ASPIRIN EC 81 MG TABEC PO SCH (08:29)
[2017-01-12] MEDS: PANTOPRAZOLE SOD 40 MG DELAYED RELEASE TAB PO SCH ×2 (08:29→21:15)
[2017-01-12] MEDS: FLUoxetine HCL 20 MG CAP PO SCH ×2 (08:30→21:15)
[2017-01-12] MEDS: FERROUS SULFATE 325 MG (65 MG ELEMENTAL IRON) TAB PO SCH ×2 (08:30→21:16)
[2017-01-12] MEDS: POTASSIUM CHLORIDE 20 MEQ CONTROLLED RELEASE TAB PO SCH ×3 (08:30→17:33)
[2017-01-12] MEDS: FLUCONAZOLE 100 MG TAB PO SCH (08:30)
[2017-01-12] MEDS: DOXYCYCLINE HYCLATE 100 MG TAB PO SCH ×2 (08:30→21:15)
[2017-01-12] MEDS: METOPROLOL TARTRATE 25 MG TAB PO SCH ×2 (08:30→21:16)
[2017-01-12] MEDS: FUROSEMIDE 40 MG/4 ML VIAL IV PUSH SCH ×2 (08:31→17:32)
[2017-01-12] MEDS: CHOLESTYRAMINE 4 GM PACKET PO SCH ×2 (08:31→21:12)
[2017-01-12] MEDS: ISOSORBIDE DINITRATE 20 MG TAB PO SCH ×3 (08:31→17:32)
[2017-01-12] MEDS: BETAMETHASONE/CLOTRIMAZOLE CREAM 15 GM TOPICAL SCH ×2 (08:31→21:17)
[2017-01-12] MEDS: TIOTROPIUM BROMIDE 18 MCG INH INH SCH (08:32)
--- NOTE | 2017-01-12 11:53 | HHI.PR ---
Subjective Remarks 71 YOWF with CAD, multiple stents, CHF Pl eff Breathing better No Fever Cytology negative On NC Up in Chair Was up all night due to diuretics Objective Vital Signs Vital Signs Date Time Temp Pulse Resp B/P (MAP) Pulse Ox O2 Delivery O2 Flow Rate FiO2 01/12/17 10:29 Nasal Cannula 3.00 35 01/12/17 08:09 92 Nasal Cannula 3.00 01/12/17 08:00 97.6 67 20 124/64 (84) 96 01/12/17 04:20 95 Nasal Cannula 3.00 01/12/17 04:00 97.7 67 20 113/53 (73) 93 01/12/17 00:56 97.7 65 18 131/61 (84) 95 01/11/17 20:00 Nasal Cannula 4.00 01/11/17 20:00 98.3 72 20 118/55 (76) 94 01/11/17 20:00 72 01/11/17 19:24 96 Nasal Cannula 5.00 01/11/17 18:22 Nasal Cannula 4.00 01/11/17 16:00 98.3 66 18 127/63 (84) 97 01/11/17 15:45 70 01/11/17 15:13 Nasal Cannula 4.00 01/11/17 12:35 Nasal Cannula 4.00 01/11/17 12:00 97.9 68 18 124/58 (80) 97 I/O 01/11/17 01/11/17 01/11/17 01/12/17 01/12/17 01/12/17 07:00 15:00 23:00 07:00 15:00 23:00 Intake Total 240 ml 720 ml Output Total 900 ml Balance 240 ml -180 ml Intake Oral 240 ml 720 ml Output Urine Total 900 ml # Voids 1 3 # Bowel Movements 0 0 Result Diagram: 01/11/17 1021 01/11/17 1021 Objective Remarks GENERAL: MBMN WF, mild sob SKIN: Warm and dry. HEAD: Normocephalic. EYES: No scleral icterus. No injection or drainage. NECK: Supple, trachea midline. No JVD or lymphadenopathy. CARDIOVASCULAR: Regular rate and rhythm without murmurs, gallops, or rubs. RESPIRATORY: Breath sounds equal bilaterally. No accessory muscle use. GASTROINTESTINAL: Abdomen soft, non-tender, nondistended. MUSCULOSKELETAL: No cyanosis, or edema. BACK: Nontender without obvious deformity. No CVA tenderness. A/P Assessment and Plan Pleural effusion, s/p TC CHF COPD CAD H/O Nicotine use PLAN: Diurease Supplement 02 Cytology Negative Monitor H/H Wean 02 Jayy Bhakta MD Jan 12, 2017 11:53
--- NOTE | 2017-01-12 12:51 | HHI.PR ---
Subjective Remarks This is a shared visit patient seen by myself and Dr. Sanford Patient reports her breathing is about the same C/O difficulty moving left shoulder. Per patient she has had similar troubles with this shoulder in the past that had been getting better until she had to put herself over in bed and is now unable to abduct Objective Vitals Vital Signs Date Time Temp Pulse Resp B/P (MAP) Pulse Ox O2 Delivery O2 Flow Rate FiO2 01/12/17 10:29 Nasal Cannula 3.00 35 01/12/17 08:09 92 Nasal Cannula 3.00 01/12/17 08:00 97.6 67 20 124/64 (84) 96 01/12/17 04:20 95 Nasal Cannula 3.00 01/12/17 04:00 97.7 67 20 113/53 (73) 93 01/12/17 00:56 97.7 65 18 131/61 (84) 95 01/11/17 20:00 Nasal Cannula 4.00 01/11/17 20:00 98.3 72 20 118/55 (76) 94 01/11/17 20:00 72 01/11/17 19:24 96 Nasal Cannula 5.00 01/11/17 18:22 Nasal Cannula 4.00 01/11/17 16:00 98.3 66 18 127/63 (84) 97 01/11/17 15:45 70 01/11/17 15:13 Nasal Cannula 4.00 I/O 01/11/17 01/11/17 01/11/17 01/12/17 01/12/17 01/12/17 07:00 15:00 23:00 07:00 15:00 23:00 Intake Total 240 ml 720 ml Output Total 900 ml Balance 240 ml -180 ml Intake Oral 240 ml 720 ml Output Urine Total 900 ml # Voids 1 3 # Bowel Movements 0 0 Result Diagram: 01/11/17 1021 01/11/17 1021 Other Results Laboratory Tests Test 01/10/17 05:10 01/11/17 10:21 01/11/17 14:55 White Blood Count 4.2 TH/MM3 4.9 TH/MM3 Red Blood Count 2.87 MIL/MM3 2.87 MIL/MM3 Hemoglobin 8.3 GM/DL 8.3 GM/DL Hematocrit 25.4 % 25.5 % Mean Corpuscular Volume 88.5 FL 88.9 FL Mean Corpuscular Hemoglobin 28.7 PG 29.0 PG Mean Corpuscular Hemoglobin Concent 32.5 % 32.6 % Red Cell Distribution Width 16.2 % 16.1 % Platelet Count 158 TH/MM3 200 TH/MM3 Mean Platelet Volume 9.8 FL 9.4 FL Blood Urea Nitrogen 21 MG/DL 20 MG/DL Creatinine 1.20 MG/DL 1.17 MG/DL Random Glucose 69 MG/DL 141 MG/DL Total Protein 5.3 GM/DL Albumin 2.3 GM/DL Calcium Level 8.2 MG/DL 8.6 MG/DL Alkaline Phosphatase 93 U/L Aspartate Amino Transf (AST/SGOT) 31 U/L Alanine Aminotransferase (ALT/SGPT) 48 U/L Total Bilirubin 0.6 MG/DL Sodium Level 137 MEQ/L 136 MEQ/L Potassium Level 3.5 MEQ/L 3.7 MEQ/L Chloride Level 98 MEQ/L 98 MEQ/L Carbon Dioxide Level 31.3 MEQ/L 31.2 MEQ/L Anion Gap 8 MEQ/L 7 MEQ/L Estimat Glomerular Filtration Rate 44 ML/MIN 46 ML/MIN Neutrophils (%) (Auto) 67.3 % Lymphocytes (%) (Auto) 24.4 % Monocytes (%) (Auto) 7.3 % Eosinophils (%) (Auto) 0.6 % Basophils (%) (Auto) 0.4 % Neutrophils # (Auto) 3.3 TH/MM3 Lymphocytes # (Auto) 1.2 TH/MM3 Monocytes # (Auto) 0.4 TH/MM3 Eosinophils # (Auto) 0.0 TH/MM3 Basophils # (Auto) 0.0 TH/MM3 CBC Comment DIFF FINAL Differential Comment B-Type Natriuretic Peptide 1551 PG/ML Imaging Last Impressions Chest X-Ray 01/11/17 0000 Signed Impressions: Service Date/Time: December 12:59 - CONCLUSION: 1. Pulmonary venous congestion. 2. Stable cardiomegaly. 3. Improving bibasilar infiltrates. Doroteo Pathak MD CT Angiography 01/04/17 0000 Signed Impressions: Service Date/Time: December 12:06 - CONCLUSION: No evidence of pulmonary embolism Quentin Eddy MD Thoracentesis Ultrasound 01/03/17 0000 Signed Impressions: Service Date/Time: Tuesday, January 03, 2017 13:18 - CONCLUSION: Uncomplicated ultrasound guided right thoracentesis with removal of 800 cc of clear yellow fluid. Quentin Roman MD Chest Ultrasound 01/02/17 0000 Signed Impressions: Service Date/Time: Monday, January 02, 2017 13:36 - CONCLUSION: There is a small to moderate size simple appearing right pleural effusion. No geovani was performed. Quentin Roman MD Objective Remarks GENERAL: This is a well-nourished, well-developed patient CARDIOVASCULAR: Regular rate and rhythm RESPIRATORY: diminished bilateral bases GASTROINTESTINAL: Abdomen soft, non-tender, nondistended. Normal active bowel sounds MUSCULOSKELETAL: Extremities without clubbing, cyanosis, or edema. Unable to actively or passively abduct left arm NEURO: Alert & Oriented x4 to person, place, time, situation. 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 CAD (coronary artery disease) -Issue cardiac bypass in 2005. -Continue hydralazine and Isordil along with asa, Norvasc and metoprolol -Plavix held due to bleeding. Can restart Plavix once cleared by GI. Hemoglobin been stable. -Poorly adherent with tobacco cessation Hematochezia - Status post upper and lower endoscopy with noted gastritis, esophagitis and colitis in line C. difficile pending -Follow for transfusion needs -Diet advanced Pleural effusion - Status post thoracentesis of 800 mL transudate likely due to CHF - BNP 1551 -Continue Lasix and follow clinically -Patient on home O2 CHF exacerbation -900ml urine in the past 24 hours - BNP (01/11) 1551 - continue Lasix 40 mg IV BID -Continue with fluid restriction of 1800 Ya liters. -EF of 40-45%, continue hydralazine (patient allergy to lisinopril and losartan) Anemia due to GI blood loss -Transfuse as needed to keep hemoglobin greater than 8 due to history of coronary artery disease -Appears to have iron deficiency anemia as well as anemia of chronic disease -On iron. Hypokalemia -Replenish as needed. Shoulder pain and decreased ROM - X ray ordered - OT ordered Attending Statement The exam, history, and the medical decision-making described in the above note were completed with the assistance of the mid-level provider. I reviewed and agree with the findings presented. I attest that I had a [id number] encounter with the patient on the same day, and personally performed and documented my assessment and findings in the medical record. Follow-up for respiratory failure and left shoulder pain. Patient stated that she continues to have left shoulder pain so was difficult to move her arm due to pain. Denied trauma to the shoulder. Breathing has improved. Denied any shortness of breathing. Gen NAD CV RRR no rmg Resp CTA B/L and finished B/L lower base lung sounds EXT left shoulder decrease ROM due to pain. sensation and strength intact Acute on chronic respiratory failure Most likely combination due to COPD and CHF exacerbation. Clinically patient is improving. Continue with nebulizer and Lasix. Left shoulder pain Was likely musculoskeletal. Will get next with shoulder and have OT evaluate patient. Continue monitor clinically. Agnes Morgan Jan 12, 2017 12:51 Cindy Sanford MD Jan 12, 2017 14:12
--- NOTE | 2017-01-12 14:59 | HHI.GIFU ---
Subjective Remarks Pt in bed, napping. "I'm ok I guess." Said she has SOB when she returns to bed after using commode. No BM since colonoscopy. Eating a little. (Pascale Ruiz) Objective Vitals I&O Vital Signs Date Time Temp Pulse Resp B/P (MAP) Pulse Ox O2 Delivery O2 Flow Rate FiO2 01/12/17 12:00 97.2 101 20 122/61 (81) 97 01/12/17 10:29 Nasal Cannula 3.00 35 01/12/17 08:09 92 Nasal Cannula 3.00 01/12/17 08:00 97.6 67 20 124/64 (84) 96 01/12/17 04:20 95 Nasal Cannula 3.00 01/12/17 04:00 97.7 67 20 113/53 (73) 93 01/12/17 00:56 97.7 65 18 131/61 (84) 95 01/11/17 20:00 Nasal Cannula 4.00 01/11/17 20:00 98.3 72 20 118/55 (76) 94 01/11/17 20:00 72 01/11/17 19:24 96 Nasal Cannula 5.00 01/11/17 18:22 Nasal Cannula 4.00 01/11/17 16:00 98.3 66 18 127/63 (84) 97 01/11/17 15:45 70 01/11/17 15:13 Nasal Cannula 4.00 I/O 01/11/17 01/11/17 01/11/17 01/12/17 01/12/17 01/12/17 07:00 15:00 23:00 07:00 15:00 23:00 Intake Total 240 ml 720 ml Output Total 900 ml Balance 240 ml -180 ml Intake Oral 240 ml 720 ml Output Urine Total 900 ml # Voids 1 3 # Bowel Movements 0 0 Laboratory Laboratory Tests Test 01/11/17 14:55 B-Type Natriuretic Peptide 1551 Date/Time Source Procedure Growth Status 01/03/17 14:00 Fluid Pleural Fluid Fungal Smear - Final NO FUNGAL ELEMENTS SEEN. Resulted 01/03/17 14:00 Fluid Pleural Fluid Fungal Culture - Preliminary NO GROWTH IN 1 WEEK Resulted 01/06/17 10:10 Stool Stool Stool Occult Blood (RENAE) - Final HEMOCCULT POSITIVE Complete Physical Exam HEENT: Normocephalic; atraumatic; no jaundice. CHEST: CTA, diminished bases. CARDIAC: RRR ABDOMEN: Soft, nondistended, nontender; no hepatosplenomegaly; bowel sounds are present. EXTREMITIES: No clubbing, cyanosis, or edema. SKIN: pale; no rash; no jaundice. CAR JOCKEY: AO X 3, weak (Pascale Ruiz) Assessment and Plan Plan ASSESSMENT - Lower GIB with bloody diarrhea. S/P EGD/Colonoscopy (01/09/17)----> Esophagitis mild, gastritis, Colitis, Diverticulosis. pathology reports noted; suppurative gastritis and colitis, non sepcific. unclear significance. she is on doxy. diarrhea seems improved, no bleeding - Diarrhea with recent hx of CDiff. Recent hx C. Diff, 12/19 pos epid 027, not currently on treatment. c diff pending. no BM today. - COPD, exacerbation. Pleural effusion. pulmonary following - CHF, NSTEMI, per primary. Cardiology following PLAN - probiotics - will add fiber - MICK - PPI - continue abx - await c diff - Supportive care - Pt seen and examined by Dr. Arthur and myself and this note is written on his behalf. (Pascale Ruiz) Physician Comments Patient seen and examined Agree with above Continue with current supportive care Monitor labs (Anselmo Arthur MD) Pascale Ruiz Jan 12, 2017 14:59 Anselmo Arthur MD Jan 12, 2017 20:11
--- NOTE | 2017-01-12 16:07 | RADRPT ---
EXAM DATE/TIME: 01/12/2017 15:42 [facility] COMPARISON: CHEST PA & LAT, January 11, 2017, 12:59. INDICATIONS : Left shoulder pain for 3 days with no known trauma MEDICAL HISTORY : None. SURGICAL HISTORY : None. ENCOUNTER: Initial ACUITY: 3 days PAIN SCORE: 8/10 LOCATION: Left entire shoulder FINDINGS: Multiple view examination of the left shoulder demonstrates no evidence of fracture or dislocation. The glenohumeral and acromioclavicular joints are maintained. There is normal range of motion betwee n internal and external rotation. Bony mineralization is normal. Cardiomegaly and median sternotomy wires noted. CONCLUSION: No acute abnormality. Guilherme Kwan Jr., MD on January 12, 2017 at 16:04 Board Certified Radiologist. This report was verified electronically.
[2017-01-12] MEDS: ALPRAZolam 0.5 MG TAB PO PRN (16:13)
[2017-01-12] MEDS: LACTOBACILLUS ACIDOPHILUS TAB PO SCH (21:14)
[2017-01-12] MEDS: ATORVASTATIN 80 MG TAB PO SCH (21:15)
[2017-01-13] VITALS (10 sets, daily range): BP systolic 111–137; BP diastolic 53–79; PULSE 63–75; RESP 19–24; TEMP 97.6–98.7; O2SAT 92–96
[2017-01-13] MEDS: RESP: ALBUTEROL 2.5 MG/IPRATROPIUM 0.5 MG NEB (SCH) NEB ×6 (00:52→19:18)
[2017-01-13] MEDS: hydrALAZINE HCL 10 MG TAB PO SCH ×3 (05:07→21:00)
[2017-01-13] MEDS: ISOSORBIDE DINITRATE 20 MG TAB PO SCH ×3 (08:20→16:59)
[2017-01-13] MEDS: amLODIPine BESYLATE 5 MG TAB PO SCH ×2 (08:20→21:00)
[2017-01-13] MEDS: FLUCONAZOLE 100 MG TAB PO SCH (08:20)
[2017-01-13] MEDS: METOPROLOL TARTRATE 25 MG TAB PO SCH ×2 (08:20→21:00)
[2017-01-13] MEDS: ACETAMINOPHEN/HYDROcodone 325 MG/5 MG TAB PO PRN ×3 (08:21→21:01)
[2017-01-13] MEDS: LACTOBACILLUS ACIDOPHILUS TAB PO SCH ×2 (08:21→21:00)
[2017-01-13] MEDS: FERROUS SULFATE 325 MG (65 MG ELEMENTAL IRON) TAB PO SCH ×2 (08:21→21:00)
[2017-01-13] MEDS: ASPIRIN EC 81 MG TABEC PO SCH (08:21)
[2017-01-13] MEDS: PSYLLIUM FIBER SF/GF 6 GM POWD PKT PO SCH (08:22)
[2017-01-13] MEDS: FLUoxetine HCL 20 MG CAP PO SCH ×2 (08:22→21:01)
[2017-01-13] MEDS: FUROSEMIDE 40 MG/4 ML VIAL IV PUSH SCH ×2 (08:22→16:59)
[2017-01-13] MEDS: PANTOPRAZOLE SOD 40 MG DELAYED RELEASE TAB PO SCH ×2 (08:22→21:01)
[2017-01-13] MEDS: POTASSIUM CHLORIDE 20 MEQ CONTROLLED RELEASE TAB PO SCH ×3 (08:22→16:59)
[2017-01-13] MEDS: DOXYCYCLINE HYCLATE 100 MG TAB PO SCH (08:23)
[2017-01-13] MEDS: BETAMETHASONE/CLOTRIMAZOLE CREAM 15 GM TOPICAL SCH ×2 (08:23→21:02)
[2017-01-13] MEDS: TIOTROPIUM BROMIDE 18 MCG INH INH SCH (08:23)
[2017-01-13] MEDS: SODIUM CHLORIDE 0.9% FLUSH 10 ML FLUSH IV FLUSH SCH ×2 (08:23→21:00)
[2017-01-13] MEDS: CHOLESTYRAMINE 4 GM PACKET PO SCH (08:23)
--- NOTE | 2017-01-13 10:47 | HHI.PR ---
Subjective Remarks Follow up on patient with COPD, CHF exacerbation. Patient seen and examined. She states she is "terrible". She reports persistent dyspnea that has improved but has not returned to her baseline. She is complaining of persistent left shoulder pain. Xray negative. Reports hx of intra-articular steroid injections in the past with good results, the last one 5 months ago. She believes she reinjured the shoulder pulling herself up repetitively to urinate multiple times per day. She has not had a BM in 3 days. She reports normal appetite. Denies any N/V or abdominal pain. Denies any fever or chills. States she is coughing but without any sputum production. She uses oxygen at home. She denies any chest pain. Patient does not know what she takes doxycycline for or how long she has been on it. Objective Vitals Vital Signs Date Time Temp Pulse Resp B/P (MAP) Pulse Ox O2 Delivery O2 Flow Rate FiO2 01/13/17 08:00 97.6 69 24 135/79 (97) 93 01/13/17 07:56 96 Nasal Cannula 3.00 01/13/17 07:44 Nasal Cannula 2.50 35 01/13/17 04:00 98.2 70 19 137/65 (89) 94 01/13/17 00:52 95 Nasal Cannula 2.50 01/13/17 00:00 98.1 71 21 126/67 (86) 94 01/12/17 20:30 Nasal Cannula 3.00 01/12/17 20:02 70 01/12/17 20:00 98.1 77 19 118/58 (78) 96 01/12/17 16:00 98.0 70 20 130/54 (79) 93 01/12/17 15:15 97 Nasal Cannula 3.00 01/12/17 12:00 97.2 101 20 122/61 (81) 97 01/12/17 10:29 Nasal Cannula 3.00 35 I/O 01/12/17 01/12/17 01/12/17 01/13/17 01/13/17 01/13/17 07:00 15:00 23:00 07:00 15:00 23:00 Intake Total 720 ml 240 ml Balance 720 ml 240 ml Intake Oral 720 ml 240 ml # Voids 3 3 4 # Bowel Movements 0 0 Result Diagram: 01/11/17 1021 01/11/17 1021 Imaging Last Impressions Shoulder X-Ray 01/12/17 0000 Signed Impressions: Service Date/Time: Thursday, January 12, 2017 15:42 - CONCLUSION: No acute abnormality. Guilherme Kwan Jr., MD Chest X-Ray 01/11/17 0000 Signed Impressions: Service Date/Time: December 12:59 - CONCLUSION: 1. Pulmonary venous congestion. 2. Stable cardiomegaly. 3. Improving bibasilar infiltrates. Doroteo Pathak MD CT Angiography 01/04/17 0000 Signed Impressions: Service Date/Time: December 12:06 - CONCLUSION: No evidence of pulmonary embolism Quentin Eddy MD Thoracentesis Ultrasound 01/03/17 0000 Signed Impressions: Service Date/Time: Tuesday, January 03, 2017 13:18 - CONCLUSION: Uncomplicated ultrasound guided right thoracentesis with removal of 800 cc of clear yellow fluid. Quentin Roman MD Chest Ultrasound 01/02/17 0000 Signed Impressions: Service Date/Time: Monday, January 02, 2017 13:36 - CONCLUSION: There is a small to moderate size simple appearing right pleural effusion. No geovani was performed. Quentin Roman MD Objective Remarks GENERAL: Well-nourished, well-developed patient in NAD. Awake and alert. SKIN: Warm and dry. HEAD: Normocephalic. Atraumatic. EYES: EOMI. No scleral icterus. No injection or drainage. ENT: No nasal bleeding or discharge. Mucous membranes pink and moist. NECK: Trachea midline. CARDIOVASCULAR: Regular rate and rhythm. S1, S2 noted. No murmur appreciated. RESPIRATORY: No accessory muscle use. Diminished throughout with little air movement. No crackles, wheezing noted. GASTROINTESTINAL: Abdomen soft, non-tender, nondistended. Normoactive bowel sounds x4. MUSCULOSKELETAL: No obvious deformities. 1+ pitting edema RLE, trace LLE. Decreased ROM in the left shoulder. Mildly edematous, no erythema or warmth. No active or passive ROM. (+)Impingement. NEUROLOGICAL: Awake and alert. Able to move all extremities but with decreased ROM in the left shoulder. Normal speech. Medications and IVs Current Medications Medications (Trade) Dose Ordered Sig/Samy Route Start Time Stop Time Status Last Admin (NS Flush) 2 ml UNSCH PRN IV FLUSH 01/01/17 18:30 (NS Flush) 2 ml BID IV FLUSH 01/01/17 21:00 01/13/17 08:23 (Narcan Inj) 0.4 mg UNSCH PRN IV PUSH 01/01/17 18:30 (Xanax) 0.5 mg Q8H PRN PO 01/01/17 19:45 01/12/17 16:13 (Norvasc) 5 mg BID PO 01/01/17 21:00 01/13/17 08:20 (Lipitor) 80 mg HS PO 01/01/17 21:00 01/12/17 21:15 (Questran 4 Gm Pkt) 4 gm Q12HR PO 01/01/17 21:00 01/13/17 08:23 (Plavix) 75 mg DAILY PO 01/02/17 09:00 Future Hold 01/04/17 09:24 (Vibratab) 100 mg BID PO 01/01/17 21:00 01/13/17 08:23 (PROzac) 20 mg BID PO 01/01/17 21:00 01/13/17 08:22 ([place] 5-325 Mg) 1 tab Q6H PRN PO 01/01/17 19:45 01/13/17 08:21 (Lopressor) 75 mg BID PO 01/01/17 21:00 01/13/17 08:20 (Restoril) 15 mg HS PRN PO 01/01/17 19:45 01/07/17 20:47 (Spiriva Inh) 18 mcg DAILY INH 01/01/17 21:00 01/13/17 08:23 (Duoneb Neb) 1 ampule Q2HR NEB PRN NEB 01/01/17 19:45 01/11/17 11:50 (Nitroglycerin 2% Oint) 0.5 inch Q6HR PRN TOPICAL 01/02/17 14:15 (KCl) 20 meq TID PO 01/04/17 09:00 01/13/17 08:22 (Apresoline) 10 mg Q8HR PO 01/04/17 14:00 01/13/17 05:07 (Ecotrin Ec) 81 mg DAILY PO 01/08/17 11:00 01/13/17 08:21 (Isordil) 20 mg TID PO 01/08/17 18:00 01/13/17 08:20 (Ferrous Sulfate) 325 mg BID PO 01/10/17 21:00 01/13/17 08:21 (Protonix) 40 mg Q12HR PO 01/10/17 21:00 01/13/17 08:22 (Duoneb Neb) 1 ampule Q4HR NEB NEB 01/11/17 16:00 01/13/17 07:54 (Diflucan) 150 mg DAILY PO 01/11/17 13:00 01/13/17 08:20 (Lotrisone Cream) 1 applic Q12HR TOPICAL 01/11/17 14:00 01/13/17 08:23 (Pill Splitter) 1 ea UNSCH PRN OTHER 01/11/17 13:00 (Lasix Inj) 40 mg BID@09,18 IV PUSH 01/11/17 18:00 01/13/17 08:22 (Lactinex) 1 tab Q12HR PO 01/12/17 21:00 01/13/17 08:21 (Metamucil Smooth Texture Sf/ Gf Pkt) 1 pkt DAILY PO 01/13/17 09:00 A/P Problem List: (1) COPD (chronic obstructive pulmonary disease) ICD Code: J44.9 - Chronic obstructive pulmonary disease Status: Chronic (2) CAD (coronary artery disease) ICD Code: I25.10 - CAD (coronary artery disease) Status: Chronic (3) Hematochezia ICD Code: K92.1 - Melena (4) Pleural effusion ICD Code: J90 - Pleural effusion, not elsewhere classified (5) CHF exacerbation ICD Code: I50.9 - Heart failure, unspecified Status: Acute (6) Anemia due to GI blood loss 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 CAD (coronary artery disease) Elevated troponins -Cardiac bypass in 2005. -Continue hydralazine and Isordil along with ASA, Norvasc and metoprolol -Seen in consultation by cardiology,. Recommended medical management. 01/08 Cardiology signed off. -Plavix held due to bleeding. Cleared by GI/C Derek MELLO to resume per Dr. Sanford. Resume Plavix. Hematochezia/lower GIB Recent hx of Cdiff -GI following -Status post upper and lower endoscopy 01/09/17 with noted gastritis, esophagitis and colitis in line C. difficile pending/no BM in 3 days -Follow for transfusion needs/hemoglobin stable 01/11. Repeat CBC today. -continue on Lactobacillus -Diet advanced Pleural effusion -Status post thoracentesis of 800 mL transudate likely due to CHF -BNP 1551 -Continue IV Lasix and follow clinically. Repeat CXR today. -Patient on home O2 CHF exacerbation -strict I&Os -BNP (01/11) 1551 -continue Lasix 40 mg IV BID. On KCL TID. Monitor electrolytes - BMP ordered for today. -Continue with fluid restriction of 1800mls and low salt diet. Daily weights. -EF of 40-45%, continue hydralazine (patient allergy to lisinopril and losartan) COPD (chronic obstructive pulmonary disease) Chronic respiratory failure -patient quit smoking in November of this year/continued cessation -Continue Duonebs scheduled -Begin Symbicort Anemia due to GI blood loss -Transfuse as needed to keep hemoglobin greater than 8 due to history of coronary artery disease, repeat CBC pending -Appears to have iron deficiency anemia as well as anemia of chronic disease -On iron. Add vitamin C to help with absorption Shoulder pain and decreased ROM -X ray ordered - no evidence of fracture -K pad application -OT ordered/pending DVT prophylaxis -Heparin sq Discussed with Dr. Sanford, patient and nursing Elinor Muñoz Jan 13, 2017 10:47
[2017-01-13] MEDS ORDERED: DOCUSATE SODIUM 50 MG/SENNA 8.6 MG TAB PO ONE (11:00)
[2017-01-13] MEDS: BUDESONIDE-FORMOTEROL 160/4.5 MCG INHALER INH SCH ×2 (11:00→20:58)
[2017-01-13 11:51] LABS: BASOPHIL % 0.5 % (0.0-2.0); EOSINOPHIL % 0.5 % (0.0-4.0); HEMATOCRIT 24.6 % (35.0-46.0); HEMO FLAGS DIFF FINAL; LYMPH % 17.8 % (9.0-44.0); MEAN CELL VOLUME 88.4 FL (80.0-100.0); MEAN CORPUSCULAR HEMOGLOBIN 29.2 PG (27.0-34.0); MONO % 7.7 % (0.0-8.0); NEUT % 73.5 % (16.0-70.0); PLATELET COUNT 238 TH/MM3 (150-450); RED BLOOD COUNT 2.78 MIL/MM3 (4.00-5.30); RED CELL DISTRIBUTION WIDTH 16.4 % (11.6-17.2); WHITE BLOOD COUNT 5.5 TH/MM3 (4.0-11.0)
[2017-01-13 12:03] LABS: BICARBONATE 33.4 MEQ/L (21.0-32.0); POTASSIUM 4.1 MEQ/L (3.5-5.1)
--- NOTE | 2017-01-13 12:15 | RADRPT ---
EXAM DATE/TIME: 01/13/2017 11:34 [place] COMPARISON: CHEST SINGLE AP, January 06, 2017, 13:18. INDICATIONS : Shortness of breath. MEDICAL HISTORY : Myocardial infarction. Chronic obstructive pulmonary disease.Gastroesophageal reflux disease. Congest damon heart failure. SURGICAL HISTORY : CABG. Cardiac stent. Cardiac catheterization. Left breast lumpectomy ENCOUNTER: Subsequent ACUITY: 1 month PAIN SCORE: 0/10 LOCATION: Bilateral chest FINDINGS: Single AP view of the chest. Median sternotomy wires. Patchy opacity is again identified at the lung bases. Decrease in opacity in the right lung base. No change on the left. Mild blunting of the left c ostophrenic sulcus unchanged. CONCLUSION: Persistent bilateral lower lung zone opacity with decrease in right sided opacity. Persistent small l eft pleural effusion. Joao Jordan MD on January 13, 2017 at 12:12 Board Certified Radiologist. This report was verified electronically.
--- NOTE | 2017-01-13 15:25 | HHI.GIFU ---
Subjective Remarks Pt resting in bed. No diarrhea. No BM in 3d, took stool softener. No abd pain. c/o SOB when eating and using commode. (Pascale Ruiz) Objective Vitals I&O Vital Signs Date Time Temp Pulse Resp B/P (MAP) Pulse Ox O2 Delivery O2 Flow Rate FiO2 01/13/17 15:10 01/13/17 12:14 97.7 63 24 120/60 (80) 92 01/13/17 08:00 97.6 69 24 135/79 (97) 93 01/13/17 07:56 96 Nasal Cannula 3.00 01/13/17 07:44 Nasal Cannula 2.50 35 01/13/17 04:00 98.2 70 19 137/65 (89) 94 01/13/17 00:52 95 Nasal Cannula 2.50 01/13/17 00:00 98.1 71 21 126/67 (86) 94 01/12/17 20:30 Nasal Cannula 3.00 01/12/17 20:02 70 01/12/17 20:00 98.1 77 19 118/58 (78) 96 01/12/17 16:00 98.0 70 20 130/54 (79) 93 I/O 01/12/17 01/12/17 01/12/17 01/13/17 01/13/17 01/13/17 07:00 15:00 23:00 07:00 15:00 23:00 Intake Total 720 ml 240 ml 0 ml Balance 720 ml 240 ml 0 ml Intake Oral 720 ml 240 ml IV Total 0 ml # Voids 3 3 4 # Bowel Movements 0 0 Laboratory Laboratory Tests Test 01/13/17 11:18 White Blood Count 5.5 Red Blood Count 2.78 Hemoglobin 8.1 Hematocrit 24.6 Mean Corpuscular Volume 88.4 Mean Corpuscular Hemoglobin 29.2 Mean Corpuscular Hemoglobin Concent 33.0 Red Cell Distribution Width 16.4 Platelet Count 238 Mean Platelet Volume 9.3 Neutrophils (%) (Auto) 73.5 Lymphocytes (%) (Auto) 17.8 Monocytes (%) (Auto) 7.7 Eosinophils (%) (Auto) 0.5 Basophils (%) (Auto) 0.5 Neutrophils # (Auto) 4.0 Lymphocytes # (Auto) 1.0 Monocytes # (Auto) 0.4 Eosinophils # (Auto) 0.0 Basophils # (Auto) 0.0 CBC Comment DIFF FINAL Differential Comment Blood Urea Nitrogen 19 Creatinine 1.39 Random Glucose 126 Calcium Level 8.6 Sodium Level 137 Potassium Level 4.1 Chloride Level 98 Carbon Dioxide Level 33.4 Anion Gap 6 Estimat Glomerular Filtration Rate 37 Date/Time Source Procedure Growth Status 01/03/17 14:00 Fluid Pleural Fluid Fungal Smear - Final NO FUNGAL ELEMENTS SEEN. Resulted 01/03/17 14:00 Fluid Pleural Fluid Fungal Culture - Preliminary NO GROWTH IN 1 WEEK Resulted 01/06/17 10:10 Stool Stool Stool Occult Blood (RENAE) - Final HEMOCCULT POSITIVE Complete Physical Exam HEENT: Normocephalic; atraumatic; no jaundice. CHEST: CTA, diminished bases. tachypneic CARDIAC: irr HR ABDOMEN: Soft, nondistended, nontender; no hepatosplenomegaly; bowel sounds are present. EXTREMITIES: No clubbing, cyanosis, or edema. SKIN: pale; no rash; no jaundice. CO TEACHER: AO X 3, weak (Pascale Ruiz) Assessment and Plan Plan ASSESSMENT - Lower GIB with bloody diarrhea. S/P EGD/Colonoscopy (01/09/17)----> Esophagitis mild, gastritis, Colitis, Diverticulosis. pathology reports noted; suppurative gastritis and colitis, non sepcific. unclear significance. she is on doxy. no further diarrhea. no bleeding. - Diarrhea with recent hx of CDiff. Recent hx C. Diff, 12/19 pos epid 027, not currently on treatment. repeat c diff cancelled d/t specimen no received. NO bm recently, if pt loose stool reoccurs will order c diff - COPD, exacerbation. Pleural effusion. pulmonary following - CHFexacerbation, NSTEMI, per primary. PLAN - probiotics - fiber - MICK - PPI - continue abx - Supportive care - Pt seen and examined by Dr. Arthur and myself and this note is written on his behalf. (Pascale Ruiz) Physician Comments Patient seen and examined Agree with above Continue with current supportive care Monitor labs We will sign off (Anselmo Arthur MD) Pascale Ruiz Jan 13, 2017 15:25 Anselmo Arthur MD Jan 13, 2017 21:49
--- NOTE | 2017-01-13 15:57 | HHI.PR ---
Subjective Remarks 71 YOWF with CAD, multiple stents, CHF Pl eff Breathing better No Fever Cytology negative On NC Objective Vital Signs Vital Signs Date Time Temp Pulse Resp B/P (MAP) Pulse Ox O2 Delivery O2 Flow Rate FiO2 01/13/17 15:10 01/13/17 12:14 97.7 63 24 120/60 (80) 92 01/13/17 08:00 97.6 69 24 135/79 (97) 93 01/13/17 07:56 96 Nasal Cannula 3.00 01/13/17 07:44 Nasal Cannula 2.50 35 01/13/17 04:00 98.2 70 19 137/65 (89) 94 01/13/17 00:52 95 Nasal Cannula 2.50 01/13/17 00:00 98.1 71 21 126/67 (86) 94 01/12/17 20:30 Nasal Cannula 3.00 01/12/17 20:02 70 01/12/17 20:00 98.1 77 19 118/58 (78) 96 01/12/17 16:00 98.0 70 20 130/54 (79) 93 I/O 01/12/17 01/12/17 01/12/17 01/13/17 01/13/17 01/13/17 07:00 15:00 23:00 07:00 15:00 23:00 Intake Total 720 ml 240 ml 0 ml Balance 720 ml 240 ml 0 ml Intake Oral 720 ml 240 ml IV Total 0 ml # Voids 3 3 4 # Bowel Movements 0 0 Result Diagram: 01/13/17 1118 01/13/17 1118 Objective Remarks GENERAL: MBMN WF, mild sob SKIN: Warm and dry. HEAD: Normocephalic. EYES: No scleral icterus. No injection or drainage. NECK: Supple, trachea midline. No JVD or lymphadenopathy. CARDIOVASCULAR: Regular rate and rhythm without murmurs, gallops, or rubs. RESPIRATORY: Breath sounds equal bilaterally. No accessory muscle use. GASTROINTESTINAL: Abdomen soft, non-tender, nondistended. MUSCULOSKELETAL: No cyanosis, or edema. BACK: Nontender without obvious deformity. No CVA tenderness. A/P Assessment and Plan Pleural effusion, s/p TC CHF COPD CAD H/O Nicotine use PLAN: Diurease Supplement 02 Cytology Negative Monitor H/H Wean 02 Jayy Bhakta MD Jan 13, 2017 15:57
[2017-01-13] MEDS: HEPARIN SODIUM - SQ 10,000 UNITS/ML VIAL SQ SCH (17:06)
[2017-01-13] MEDS: ATORVASTATIN 80 MG TAB PO SCH (21:00)
[2017-01-13] MEDS: DOCUSATE SODIUM 50 MG/SENNA 8.6 MG TAB PO SCH (21:00)
[2017-01-13] MEDS: ASCORBIC ACID 500 MG TAB PO SCH (21:01)
[2017-01-13] MEDS: ALPRAZolam 0.5 MG TAB PO PRN (21:01)
[2017-01-14] VITALS (9 sets, daily range): BP systolic 114–190; BP diastolic 58–83; PULSE 64–79; RESP 20–24; TEMP 97.7–98.6; O2SAT 88–96
[2017-01-14] MEDS: RESP: ALBUTEROL 2.5 MG/IPRATROPIUM 0.5 MG NEB (SCH) NEB ×6 (00:04→21:46)
[2017-01-14] MEDS: hydrALAZINE HCL 10 MG TAB PO SCH ×3 (05:30→21:43)
[2017-01-14] MEDS: ACETAMINOPHEN/HYDROcodone 325 MG/5 MG TAB PO PRN ×2 (05:31→19:49)
[2017-01-14] MEDS: PSYLLIUM FIBER SF/GF 6 GM POWD PKT PO SCH (10:00)
[2017-01-14] MEDS: DOCUSATE SODIUM 50 MG/SENNA 8.6 MG TAB PO SCH ×2 (10:00→21:43)
[2017-01-14] MEDS: FUROSEMIDE 40 MG/4 ML VIAL IV PUSH SCH ×2 (10:05→18:15)
[2017-01-14] MEDS: FERROUS SULFATE 325 MG (65 MG ELEMENTAL IRON) TAB PO SCH ×2 (10:05→21:42)
[2017-01-14] MEDS: POTASSIUM CHLORIDE 20 MEQ CONTROLLED RELEASE TAB PO SCH ×3 (10:06→18:15)
[2017-01-14] MEDS: CLOPIDOGREL 75 MG TAB PO SCH (10:06)
[2017-01-14] MEDS: METOPROLOL TARTRATE 25 MG TAB PO SCH ×2 (10:06→21:42)
--- NOTE | 2017-01-14 10:06 | HHI.PR ---
Subjective Remarks Follow-up for acute respiratory failure Patient stated that she stills for short of breath with mild improvement. She stated that she refused a heparin yesterday. Patient stated that she would like to walk but no one is assisting her. She stated that she does not feel comfortable going home at the moment because she is not able to walk on her own. She is on 4 L of oxygen. Objective Vitals Vital Signs Date Time Temp Pulse Resp B/P (MAP) Pulse Ox O2 Delivery O2 Flow Rate FiO2 01/14/17 08:04 96 Nasal Cannula 4.00 01/14/17 04:00 98.4 71 20 130/61 (84) 90 01/14/17 04:00 Nasal Cannula 4.00 01/14/17 00:00 98.6 64 20 114/58 (76) 96 01/14/17 00:00 Nasal Cannula 4.00 01/13/17 20:00 Nasal Cannula 3.00 01/13/17 20:00 98.5 74 20 118/57 (77) 93 01/13/17 19:18 93 Nasal Cannula 3.00 01/13/17 16:00 98.7 68 24 111/53 (72) 95 01/13/17 15:10 01/13/17 12:14 97.7 63 24 120/60 (80) 92 I/O 01/13/17 01/13/17 01/13/17 01/14/17 01/14/17 01/14/17 07:00 15:00 23:00 07:00 15:00 23:00 Intake Total 240 ml 0 ml 1320 ml 650 ml Balance 240 ml 0 ml 1320 ml 650 ml Intake Oral 240 ml 1320 ml 650 ml IV Total 0 ml 0 ml # Voids 4 6 3 # Bowel Movements 0 0 0 Result Diagram: 01/13/17 1118 01/13/17 1118 Objective Remarks GENERAL: no NAD CARDIOVASCULAR: Regular rate and rhythm without murmurs, gallops, or rubs. RESPIRATORY: Mild crackles bilateral basilar area otherwise clear to station bilaterally. No accessory muscle use. GASTROINTESTINAL: Abdomen soft, non-tender, nondistended. MUSCULOSKELETAL: No cyanosis, or edema. Medications and IVs Current Medications Sodium Chloride (NS Flush) 2 ml UNSCH PRN IVF FLUSH AFTER USING IV ACCESS; Start 01/01/17 at 16:45; Stop 01/01/17 at 19:22; Status DC Sodium Chloride (NS Flush) 2 ml UNSCH PRN IV FLUSH FLUSH AFTER USING IV ACCESS ; Start 01/01/17 at 18:30 Sodium Chloride (NS Flush) 2 ml BID IV FLUSH Last administered on 01/13/17 21 :00; Start 01/01/17 at 21:00 Naloxone HCl (Narcan Inj) 0.4 mg UNSCH PRN IV PUSH SEE LABEL COMMENTS; Start 01/01/17 at 18:30 Furosemide (Lasix Inj) 40 mg ONCE ONCE IV PUSH Last administered on 01/01/17 18:50; Start 01/01/17 at 18:30; Stop 01/01/17 at 18:31; Status DC Furosemide (Lasix Inj) 40 mg BID@18 IV PUSH Last administered on 01/08/17 09:38; Start 01/02/17 at 09:00; Stop 01/08/17 at 10:14; Status DC Enoxaparin Sodium (Lovenox Inj) 80 mg Q12H SQ Last administered on 01/04/17 20 :49; Start 01/01/17 at 20:00; Stop 01/10/17 at 12:23; Status DC Alprazolam (Xanax) 0.5 mg Q8H PRN PO ANXIETY Last administered on 01/13/17 21 :01; Start 01/01/17 at 19:45 Amlodipine Besylate (Norvasc) 5 mg BID PO Last administered on 01/13/17 21:00 ; Start 01/01/17 at 21:00 Aspirin (Ecotrin Ec) 81 mg DAILY PO Last administered on 01/04/17 09:24; Start 01/02/17 at 09:00; Stop 01/08/17 at 11:02; Status DC Atorvastatin Calcium (Lipitor) 80 mg HS PO Last administered on 01/13/17 21: 00; Start 01/01/17 at 21:00 Cholestyramine Resin (Questran 4 Gm Pkt) 4 gm Q12HR PO Last administered on 08:23; Start 01/01/17 at 21:00; Stop 01/13/17 at 10:20; Status DC Clopidogrel Bisulfate (Plavix) 75 mg DAILY PO Last administered on 01/04/17 09 :24; Start 01/02/17 at 09:00; Status Future hold Doxycycline Hyclate (Vibratab) 100 mg BID PO Last administered on 01/13/17 08 :23; Start 01/01/17 at 21:00; Stop 01/13/17 at 12:57; Status DC Fluoxetine HCl (PROzac) 20 mg BID PO Last administered on 01/13/17 21:01; Start 01/01/17 at 21:00 Acetaminophen/ Hydrocodone Bitart ([place] 5-325 Mg) 1 tab Q6H PRN PO PAIN 1-10 Last administered on 01/14/17 05:31; Start 01/01/17 at 19:45 Albuterol/ Ipratropium (Duoneb Neb) 1 ampule Q6HR WHILE AWAKE NEB NEB Last administered on 01/05/17 18:56; Start 01/01/17 at 20:00; Stop 01/05/17 at 19: 59; Status DC Isosorbide Mononitrate (Imdur) 30 mg DAILY PO Last administered on 01/08/17 09:38; Start 01/02/17 at 09:00; Stop 01/08/17 at 11:09; Status DC Metoprolol Tartrate (Lopressor) 75 mg BID PO Last administered on 01/13/17 21 :00; Start 01/01/17 at 21:00 Potassium Chloride (KCl) 20 meq DAILY PO ; Start 01/02/17 at 09:00; Stop at 09:29; Status DC Temazepam (Restoril) 15 mg HS PRN PO INSOMNIA Last administered on 01/07/17 20:47; Start 01/01/17 at 19:45 Tiotropium [place] (Spiriva Inh) 18 mcg DAILY INH Last administered on 08:23; Start 01/01/17 at 21:00 Albuterol/ Ipratropium (Duoneb Neb) 1 ampule Q6HR NEB NEB Last administered on 01/05/17 09:34; Start 01/01/17 at 22:00; Stop 01/05/17 at 21:59; Status DC Albuterol/ Ipratropium (Duoneb Neb) 1 ampule Q2HR NEB PRN NEB wheezing Last administered on 01/11/17 11:50; Start 01/01/17 at 19:45 Potassium Chloride (KCl) 20 meq Q12HR PO ; Start 01/02/17 at 21:00; Stop at 21:00; Status DC Potassium Chloride (KCl) 40 meq ONCE ONCE PO Last administered on 01/02/17 09 :49; Start 01/02/17 at 09:30; Stop 01/02/17 at 09:35; Status DC Potassium Chloride (KCl) 40 meq ONCE ONCE PO Last administered on 01/02/17 13 :30; Start 01/02/17 at 13:30; Stop 01/02/17 at 13:31; Status DC Nitroglycerin (Nitroglycerin 2% Oint) 0.5 inch Q6HR PRN TOPICAL CHEST PAIN; Start 01/02/17 at 14:15 Potassium Chloride (KCl) 20 meq QID PO Last administered on 01/03/17 21:11; Start 01/03/17 at 09:00; Stop 01/04/17 at 08:17; Status DC Magnesium Sulfate/ Dextrose 100 ml @ 100 mls/hr Q1H IV Last administered on 09:00; Start 01/03/17 at 08:00; Stop 01/03/17 at 10:05; Status DC Potassium Chloride (KCl) 20 meq TID PO Last administered on 01/13/17 16:59; Start 01/04/17 at 09:00 Hydralazine HCl (Apresoline) 10 mg Q8HR PO Last administered on 01/14/17 05: 30; Start 01/04/17 at 14:00 Isosorbide Dinitrate (Isordil) 10 mg Q8HR PO Last administered on 01/08/17 14 :10; Start 01/04/17 at 14:00; Stop 01/08/17 at 15:00; Status DC Iohexol (Omnipaque 350 Inj) 50 ml STK-MED ONCE IVCONTRAST Last administered on 01/04/17 12:37; Start 01/04/17 at 12:37; Stop 01/04/17 at 12:38; Status DC Pantoprazole Sodium (Protonix Inj) 40 mg Q12H IV PUSH Last administered on 09:13; Start 01/05/17 at 10:00; Stop 01/10/17 at 12:23; Status DC Acetazolamide (Diamox) 250 mg ONCE ONCE PO Last administered on 01/07/17 18: 17; Start 01/07/17 at 17:30; Stop 01/07/17 at 17:36; Status DC Furosemide (Lasix) 40 mg BID@ PO Last administered on 01/11/17 09:29; Start 01/09/17 at 09:00; Stop 01/11/17 at 15:03; Status DC Aspirin (Ecotrin Ec) 81 mg DAILY PO Last administered on 01/13/17 08:21; Start 01/08/17 at 11:00 Isosorbide Dinitrate (Isordil) 20 mg TID PO Last administered on 01/13/17 16: 59; Start 01/08/17 at 18:00 Polyethylene Glycol/ Electrolytes (Colyte Liq) 4,000 ml ONCE ONCE PO Last administered on 01/08/17 18:18; Start 01/08/17 at 18:00; Stop 01/08/17 at 18 :01; Status DC Sodium Biphosphate/ Sodium Phosphate (Fleets Enema (Adult)) 118 ml ONCE ONCE RECTAL Last administered on 01/09/17 13:37; Start 01/09/17 at 13:00; Stop 01/09/17 at 13:01; Status DC Sodium Biphosphate/ Sodium Phosphate (Fleets Enema (Adult)) 118 ml ONCE ONCE RECTAL Last administered on 01/09/17 13:38; Start 01/09/17 at 14:00; Stop 01/09/17 at 14:01; Status DC Ketamine HCl (Ketalar Inj) 500 mg STK-MED ONCE .ROUTE ; Start 01/09/17 at 16:57 ; Stop 01/09/17 at 16:58; Status DC Miscellaneous Information ALL NURSING DEPARTME... UNSCH PRN .XX SEE LABEL COMMENTS; Start 01/09/17 at 17:45; Stop 01/10/17 at 17:44; Status DC Ferrous Sulfate (Ferrous Sulfate) 325 mg BID PO Last administered on 21:00; Start 01/10/17 at 21:00 Pantoprazole Sodium (Protonix) 40 mg Q12HR PO Last administered on 01/13/17 21:01; Start 01/10/17 at 21:00 Lidocaine HCl (Xylocaine-Mpf 1% Inj) 10 ml STK-MED ONCE OTHER ; Start 01/09/17 at 12:00; Stop 01/10/17 at 15:15; Status DC Phenylephrine HCl (Neosynephrine/ NS 1000 Mcg/10ml Syr) 1,000 mcg STK-MED ONCE IV ; Start 01/09/17 at 12:00; Stop 01/10/17 at 15:15; Status DC Midazolam HCl (Versed Inj) 4 mg STK-MED ONCE IV ; Start 01/09/17 at 12:00; Stop 01/10/17 at 15:15; Status DC Propofol (Diprivan 200 Mg/20 ml Inj) 600 mg STK-MED ONCE IV ; Start 01/09/17 at 12:00; Stop 01/10/17 at 15:15; Status DC Albuterol/ Ipratropium (Duoneb Neb) 1 ampule Q4HR NEB NEB Last administered on 01/14/17 08:04; Start 01/11/17 at 16:00 Fluconazole (Diflucan) 150 mg DAILY PO Last administered on 01/13/17 08:20; Start 01/11/17 at 13:00 Betamethasone/ Clotrimazole (Lotrisone Cream) 1 applic Q12HR TOPICAL Last administered on 01/13/17 21:02; Start 01/11/17 at 14:00 Miscellaneous (Pill Splitter) 1 ea UNSCH PRN OTHER SEE LABEL COMMENTS; Start 01/11/17 at 13:00 Furosemide (Lasix Inj) 40 mg BID@18 IV PUSH Last administered on 01/13/17 16:59; Start 01/11/17 at 18:00 Lactobacillus Acidophilus (Lactinex) 1 tab Q12HR PO Last administered on 21:00; Start 01/12/17 at 21:00 Psyllium Hydrophilic Mucilloid (Metamucil Smooth Texture Sf/ Gf Pkt) 1 pkt DAILY PO ; Start 01/13/17 at 09:00 Senna/Docusate Sodium (Negra-Colace) 1 tab BID PO ; Start 01/13/17 at 21:00 Senna/Docusate Sodium (Negra-Colace) 1 tab ONCE ONCE PO Last administered on 11:00; Start 01/13/17 at 11:00; Stop 01/13/17 at 11:01; Status DC Ascorbic Acid (Vitamin C) 250 mg BID PO Last administered on 01/13/17 21:01; Start 01/13/17 at 21:00 Budesonide/ Formoterol Fumarate (Symbicort 160-4.5 Inh) 2 puff Q12HR INH Last administered on 01/13/17 20:58; Start 01/13/17 at 11:00 Heparin Sodium (Porcine) (Heparin Inj) 5,000 units Q12HR SQ ; Start 01/13/17 at 18:00 A/P Problem List: (1) COPD (chronic obstructive pulmonary disease) ICD Code: J44.9 - Chronic obstructive pulmonary disease Status: Chronic (2) CAD (coronary artery disease) ICD Code: I25.10 - CAD (coronary artery disease) Status: Chronic (3) Hematochezia ICD Code: K92.1 - Melena (4) Pleural effusion ICD Code: J90 - Pleural effusion, not elsewhere classified (5) CHF exacerbation ICD Code: I50.9 - Heart failure, unspecified Status: Acute (6) 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 Repeat chest x-ray yesterday shows improvement. -Continue with IV Lasix. -Wean oxygen as tolerated. Her baseline is 2-3 L at home. COPD (chronic obstructive pulmonary disease) -Continue current regimen. CAD (coronary artery disease) -s/p cardiac bypass in 2005. -Continue hydralazine and Isordil along with asa, Norvasc and metoprolol -Per GI care restart Plavix. Patients on Plavix. Hematochezia - Status post upper and lower endoscopy with noted gastritis, esophagitis. -Follow for transfusion needs -Diet advanced -hemoglobin been stable during her hospital course. Pleural effusion - Status post thoracentesis of 800 mL transudate likely due to CHF -Continue Lasix and follow clinically -Patient on home O2 CHF exacerbation -EF of 40-45%, continue hydralazine (patient allergy to lisinopril and losartan) -Continue with fluid restriction of 1800 ml. -the past day nurse has not been measuring I/O. Order placed again yesterday and still not measuring I/O. will address at [facility] meeting. Anemia due to GI blood loss -Transfuse as needed to keep hemoglobin greater than 8 due to history of coronary artery disease -Appears to have iron deficiency anemia as well as anemia of chronic disease -On iron. -stable. no active bleeding. Hypokalemia -Replenish as needed. DVT prophylaxis -heparin gtt. encourage ambulation. will have PT or nurse walk patient so that she feels comfortable going home. Discharge Planning once medically cleared can be d/c to home with home health. Cindy Sanford MD Jan 14, 2017 10:06
[2017-01-14] MEDS: FLUCONAZOLE 100 MG TAB PO SCH (10:07)
[2017-01-14] MEDS: amLODIPine BESYLATE 5 MG TAB PO SCH ×2 (10:07→21:42)
[2017-01-14] MEDS: PANTOPRAZOLE SOD 40 MG DELAYED RELEASE TAB PO SCH ×2 (10:07→21:42)
[2017-01-14] MEDS: ISOSORBIDE DINITRATE 20 MG TAB PO SCH ×3 (10:07→18:16)
[2017-01-14] MEDS: FLUoxetine HCL 20 MG CAP PO SCH ×2 (10:07→21:42)
[2017-01-14] MEDS: LACTOBACILLUS ACIDOPHILUS TAB PO SCH ×2 (10:07→21:42)
[2017-01-14] MEDS: ASCORBIC ACID 500 MG TAB PO SCH ×2 (10:07→21:42)
[2017-01-14] MEDS: ASPIRIN EC 81 MG TABEC PO SCH (10:08)
[2017-01-14] MEDS: HEPARIN SODIUM - SQ 10,000 UNITS/ML VIAL SQ SCH ×2 (10:08→21:43)
[2017-01-14] MEDS: BUDESONIDE-FORMOTEROL 160/4.5 MCG INHALER INH SCH ×2 (10:08→21:43)
[2017-01-14] MEDS: BETAMETHASONE/CLOTRIMAZOLE CREAM 15 GM TOPICAL SCH ×2 (10:09→21:44)
[2017-01-14] MEDS: SODIUM CHLORIDE 0.9% FLUSH 10 ML FLUSH IV FLUSH SCH ×2 (10:09→21:43)
[2017-01-14] MEDS: TIOTROPIUM BROMIDE 18 MCG INH INH SCH (10:09)
[2017-01-14] MEDS ORDERED: ALBUTEROL SULFATE 90 MCG/ACT HFA 8 GM INHALER INH PRN (11:00)
[2017-01-14 15:32] LABS: AUTOMATED NEUTROPHIL # 3.8 TH/MM3 (1.8-7.7); BASOPHIL % 0.4 % (0.0-2.0); EOSINOPHIL % 0.4 % (0.0-4.0); HEMATOCRIT 23.5 % (35.0-46.0); HEMO FLAGS DIFF FINAL; LYMPH % 18.1 % (9.0-44.0); LYMPHOCYTE # 0.9 TH/MM3 (1.0-4.8); MEAN CELL VOLUME 88.4 FL (80.0-100.0); MEAN CORPUSCULAR HEMOGLOBIN 29.1 PG (27.0-34.0); MEAN CORPUSCULAR HGB CONC 32.9 % (32.0-36.0); MONO % 6.6 % (0.0-8.0); NEUT % 74.5 % (16.0-70.0); PLATELET COUNT 262 TH/MM3 (150-450); RED BLOOD COUNT 2.66 MIL/MM3 (4.00-5.30); RED CELL DISTRIBUTION WIDTH 16.2 % (11.6-17.2); WHITE BLOOD COUNT 5.1 TH/MM3 (4.0-11.0)
[2017-01-14 15:46] LABS: BICARBONATE 31.9 MEQ/L (21.0-32.0); MAGNESIUM 1.8 MG/DL (1.5-2.5); POTASSIUM 4.2 MEQ/L (3.5-5.1)
--- NOTE | 2017-01-14 18:18 | HHI.PR ---
Subjective Remarks 71 YOWF with CAD, multiple stents, CHF Pl eff Breathing better No Fever Cytology negative On NC Feels week, would prefer to go to rehab Objective Vital Signs Vital Signs Date Time Temp Pulse Resp B/P (MAP) Pulse Ox O2 Delivery O2 Flow Rate FiO2 01/14/17 16:00 97.7 79 20 138/64 (88) 92 01/14/17 12:00 97.9 71 20 131/60 (83) 95 01/14/17 08:04 96 Nasal Cannula 4.00 01/14/17 08:00 98.2 79 24 190/83 (118) 88 162/71 (101) 01/14/17 04:00 98.4 71 20 130/61 (84) 90 01/14/17 04:00 Nasal Cannula 4.00 01/14/17 00:00 98.6 64 20 114/58 (76) 96 01/14/17 00:00 Nasal Cannula 4.00 01/13/17 20:00 Nasal Cannula 3.00 01/13/17 20:00 98.5 74 20 118/57 (77) 93 01/13/17 19:18 93 Nasal Cannula 3.00 I/O 01/13/17 01/13/17 01/13/17 01/14/17 01/14/17 01/14/17 07:00 15:00 23:00 07:00 15:00 23:00 Intake Total 240 ml 0 ml 1320 ml 650 ml Balance 240 ml 0 ml 1320 ml 650 ml Intake Oral 240 ml 1320 ml 650 ml IV Total 0 ml 0 ml # Voids 4 6 3 # Bowel Movements 0 0 0 Result Diagram: 01/14/17 1504 01/14/17 1504 Objective Remarks GENERAL: MBMN WF, mild sob SKIN: Warm and dry. HEAD: Normocephalic. EYES: No scleral icterus. No injection or drainage. NECK: Supple, trachea midline. No JVD or lymphadenopathy. CARDIOVASCULAR: Regular rate and rhythm without murmurs, gallops, or rubs. RESPIRATORY: Breath sounds equal bilaterally. No accessory muscle use. GASTROINTESTINAL: Abdomen soft, non-tender, nondistended. MUSCULOSKELETAL: No cyanosis, or edema. BACK: Nontender without obvious deformity. No CVA tenderness. A/P Assessment and Plan Pleural effusion, s/p TC CHF COPD CAD H/O Nicotine use PLAN: Diurease Supplement 02 Cytology Negative Monitor H/H Wean 02 DC plans underway Jayy Bhakta MD Jan 14, 2017 18:18
[2017-01-14] MEDS: ATORVASTATIN 80 MG TAB PO SCH (21:42)
[2017-01-14] MEDS: ALPRAZolam 0.5 MG TAB PO PRN (21:45)
[2017-01-15] VITALS (14 sets, daily range): BP systolic 120–147; BP diastolic 57–66; PULSE 71–91; RESP 18–24; TEMP 97.3–98.8; O2SAT 88–94
[2017-01-15] MEDS: ACETAMINOPHEN/HYDROcodone 325 MG/5 MG TAB PO PRN ×3 (04:08→18:15)
[2017-01-15 05:05] LABS: MEAN CELL VOLUME 87.5 FL (80.0-100.0); MEAN CORPUSCULAR HEMOGLOBIN 28.7 PG (27.0-34.0); MEAN CORPUSCULAR HGB CONC 32.8 % (32.0-36.0); PLATELET COUNT 310 TH/MM3 (150-450); RED BLOOD COUNT 2.86 MIL/MM3 (4.00-5.30); RED CELL DISTRIBUTION WIDTH 16.4 % (11.6-17.2); REVIEW FLAG FINAL; WHITE BLOOD COUNT 5.8 TH/MM3 (4.0-11.0)
[2017-01-15] MEDS: RESP: ALBUTEROL 2.5 MG/IPRATROPIUM 0.5 MG NEB (SCH) NEB ×4 (05:06→13:35)
[2017-01-15 05:28] LABS: BICARBONATE 31.4 MEQ/L (21.0-32.0); POTASSIUM 4.6 MEQ/L (3.5-5.1)
[2017-01-15] MEDS: hydrALAZINE HCL 10 MG TAB PO SCH ×3 (06:44→21:16)
[2017-01-15] MEDS: TIOTROPIUM BROMIDE 18 MCG INH INH SCH (09:00)
[2017-01-15] MEDS: SODIUM CHLORIDE 0.9% FLUSH 10 ML FLUSH IV FLUSH SCH ×2 (09:00→21:19)
[2017-01-15] MEDS: BETAMETHASONE/CLOTRIMAZOLE CREAM 15 GM TOPICAL SCH ×2 (09:00→21:17)
[2017-01-15] MEDS: BUDESONIDE-FORMOTEROL 160/4.5 MCG INHALER INH SCH ×2 (09:00→21:15)
[2017-01-15] MEDS: PSYLLIUM FIBER SF/GF 6 GM POWD PKT PO SCH (09:00)
[2017-01-15] MEDS: POTASSIUM CHLORIDE 20 MEQ CONTROLLED RELEASE TAB PO SCH ×3 (10:31→18:16)
[2017-01-15] MEDS: LACTOBACILLUS ACIDOPHILUS TAB PO SCH ×2 (10:31→21:16)
[2017-01-15] MEDS: ASCORBIC ACID 500 MG TAB PO SCH ×2 (10:31→21:16)
[2017-01-15] MEDS: CLOPIDOGREL 75 MG TAB PO SCH (10:32)
[2017-01-15] MEDS: HEPARIN SODIUM - SQ 10,000 UNITS/ML VIAL SQ SCH ×2 (10:32→21:17)
[2017-01-15] MEDS: ISOSORBIDE DINITRATE 20 MG TAB PO SCH ×3 (10:32→18:16)
[2017-01-15] MEDS: ASPIRIN EC 81 MG TABEC PO SCH (10:32)
[2017-01-15] MEDS: FUROSEMIDE 40 MG/4 ML VIAL IV PUSH SCH ×2 (10:32→18:16)
[2017-01-15] MEDS: PANTOPRAZOLE SOD 40 MG DELAYED RELEASE TAB PO SCH ×2 (10:32→21:16)
[2017-01-15] MEDS: FLUoxetine HCL 20 MG CAP PO SCH ×2 (10:33→21:16)
[2017-01-15] MEDS: METOPROLOL TARTRATE 25 MG TAB PO SCH ×2 (10:33→21:16)
[2017-01-15] MEDS: amLODIPine BESYLATE 5 MG TAB PO SCH ×2 (10:34→21:16)
[2017-01-15] MEDS: FERROUS SULFATE 325 MG (65 MG ELEMENTAL IRON) TAB PO SCH ×2 (10:34→21:16)
[2017-01-15] MEDS: FLUCONAZOLE 100 MG TAB PO SCH (10:34)
[2017-01-15] MEDS: DOCUSATE SODIUM 50 MG/SENNA 8.6 MG TAB PO SCH ×2 (10:34→21:16)
--- NOTE | 2017-01-15 11:55 | HHI.PR ---
Subjective Remarks Follow-up for CHF exacerbation Patient continues to c/o shortness of breathing. She does admit to being anxious and not being able take care of herself when she goes home. Denies any cough. She remains afebrile. Patient stated that she is ambulating but does have SOB. She stated that she wants to walk more than nurse to make sure that she is improving. Otherwise she has no complaints. She does feel that there is improvement. Objective Vitals Vital Signs Date Time Temp Pulse Resp B/P (MAP) Pulse Ox O2 Delivery O2 Flow Rate FiO2 01/15/17 08:08 98.6 75 18 130/60 (83) 88 01/15/17 07:59 93 Nasal Cannula 4.00 01/15/17 04:00 Nasal Cannula 3.00 01/15/17 04:00 97.9 71 20 138/63 (88) 90 01/15/17 00:00 97.9 79 20 134/64 (87) 92 01/15/17 00:00 Nasal Cannula 3.00 01/14/17 21:49 94 Nasal Cannula 4.00 01/14/17 20:07 68 01/14/17 20:00 97.8 68 21 124/64 (84) 94 01/14/17 20:00 Nasal Cannula 3.00 01/14/17 16:00 97.7 79 20 138/64 (88) 92 01/14/17 12:00 97.9 71 20 131/60 (83) 95 I/O 01/14/17 01/14/17 01/14/17 01/15/17 01/15/17 01/15/17 07:00 15:00 23:00 07:00 15:00 23:00 Intake Total 650 ml 600 ml 240 ml Balance 650 ml 600 ml 240 ml Intake Oral 650 ml 600 ml 240 ml # Voids 3 3 4 # Bowel Movements 0 1 Result Diagram: 01/15/1740901/15/17409 Objective Remarks GENERAL: no NAD CARDIOVASCULAR: Regular rate and rhythm without murmurs, gallops, or rubs. RESPIRATORY: Mild crackles bilateral basilar area otherwise clear to station bilaterally. No accessory muscle use. GASTROINTESTINAL: Abdomen soft, non-tender, nondistended. MUSCULOSKELETAL: No cyanosis, or edema. Medications and IVs Current Medications Sodium Chloride (NS Flush) 2 ml UNSCH PRN IVF FLUSH AFTER USING IV ACCESS; Start 01/01/17 at 16:45; Stop 01/01/17 at 19:22; Status DC Sodium Chloride (NS Flush) 2 ml UNSCH PRN IV FLUSH FLUSH AFTER USING IV ACCESS ; Start 01/01/17 at 18:30 Sodium Chloride (NS Flush) 2 ml BID IV FLUSH Last administered on 01/14/17 21 :43; Start 01/01/17 at 21:00 Naloxone HCl (Narcan Inj) 0.4 mg UNSCH PRN IV PUSH SEE LABEL COMMENTS; Start 01/01/17 at 18:30 Furosemide (Lasix Inj) 40 mg ONCE ONCE IV PUSH Last administered on 01/01/17 18:50; Start 01/01/17 at 18:30; Stop 01/01/17 at 18:31; Status DC Furosemide (Lasix Inj) 40 mg BID@,18 IV PUSH Last administered on 01/08/17 09:38; Start 01/02/17 at 09:00; Stop 01/08/17 at 10:14; Status DC Enoxaparin Sodium (Lovenox Inj) 80 mg Q12H SQ Last administered on 01/04/17 20 :49; Start 01/01/17 at 20:00; Stop 01/10/17 at 12:23; Status DC Alprazolam (Xanax) 0.5 mg Q8H PRN PO ANXIETY Last administered on 01/14/17 21 :45; Start 01/01/17 at 19:45 Amlodipine Besylate (Norvasc) 5 mg BID PO Last administered on 01/15/17 10:34 ; Start 01/01/17 at 21:00 Aspirin (Ecotrin Ec) 81 mg DAILY PO Last administered on 01/04/17 09:24; Start 01/02/17 at 09:00; Stop 01/08/17 at 11:02; Status DC Atorvastatin Calcium (Lipitor) 80 mg HS PO Last administered on 01/14/17 21: 42; Start 01/01/17 at 21:00 Cholestyramine Resin (Questran 4 Gm Pkt) 4 gm Q12HR PO Last administered on 08:23; Start 01/01/17 at 21:00; Stop 01/13/17 at 10:20; Status DC Clopidogrel Bisulfate (Plavix) 75 mg DAILY PO Last administered on 01/15/17 10:32; Start 01/02/17 at 09:00; Status Future hold Doxycycline Hyclate (Vibratab) 100 mg BID PO Last administered on 01/13/17 08 :23; Start 01/01/17 at 21:00; Stop 01/13/17 at 12:57; Status DC Fluoxetine HCl (PROzac) 20 mg BID PO Last administered on 01/15/17 10:33; Start 01/01/17 at 21:00 Acetaminophen/ Hydrocodone Bitart (Easley 5-325 Mg) 1 tab Q6H PRN PO PAIN 1-10 Last administered on 01/15/17 10:34; Start 01/01/17 at 19:45 Albuterol/ Ipratropium (Duoneb Neb) 1 ampule Q6HR WHILE AWAKE NEB NEB Last administered on 01/05/17 18:56; Start 01/01/17 at 20:00; Stop 01/05/17 at 19: 59; Status DC Isosorbide Mononitrate (Imdur) 30 mg DAILY PO Last administered on 01/08/17 09:38; Start 01/02/17 at 09:00; Stop 01/08/17 at 11:09; Status DC Metoprolol Tartrate (Lopressor) 75 mg BID PO Last administered on 01/15/17 10 :33; Start 01/01/17 at 21:00 Potassium Chloride (KCl) 20 meq DAILY PO ; Start 01/02/17 at 09:00; Stop at 09:29; Status DC Temazepam (Restoril) 15 mg HS PRN PO INSOMNIA Last administered on 01/07/17 20:47; Start 01/01/17 at 19:45 Tiotropium Plain (Spiriva Inh) 18 mcg DAILY INH Last administered on 10:09; Start 01/01/17 at 21:00 Albuterol/ Ipratropium (Duoneb Neb) 1 ampule Q6HR NEB NEB Last administered on 01/05/17 09:34; Start 01/01/17 at 22:00; Stop 01/05/17 at 21:59; Status DC Albuterol/ Ipratropium (Duoneb Neb) 1 ampule Q2HR NEB PRN NEB wheezing Last administered on 01/11/17 11:50; Start 01/01/17 at 19:45 Potassium Chloride (KCl) 20 meq Q12HR PO ; Start 01/02/17 at 21:00; Stop at 21:00; Status DC Potassium Chloride (KCl) 40 meq ONCE ONCE PO Last administered on 01/02/17 09 :49; Start 01/02/17 at 09:30; Stop 01/02/17 at 09:35; Status DC Potassium Chloride (KCl) 40 meq ONCE ONCE PO Last administered on 01/02/17 13 :30; Start 01/02/17 at 13:30; Stop 01/02/17 at 13:31; Status DC Nitroglycerin (Nitroglycerin 2% Oint) 0.5 inch Q6HR PRN TOPICAL CHEST PAIN; Start 01/02/17 at 14:15 Potassium Chloride (KCl) 20 meq QID PO Last administered on 01/03/17 21:11; Start 01/03/17 at 09:00; Stop 01/04/17 at 08:17; Status DC Magnesium Sulfate/ Dextrose 100 ml @ 100 mls/hr Q1H IV Last administered on 09:00; Start 01/03/17 at 08:00; Stop 01/03/17 at 10:05; Status DC Potassium Chloride (KCl) 20 meq TID PO Last administered on 01/15/17 10:31; Start 01/04/17 at 09:00 Hydralazine HCl (Apresoline) 10 mg Q8HR PO Last administered on 01/15/17 06: 44; Start 01/04/17 at 14:00 Isosorbide Dinitrate (Isordil) 10 mg Q8HR PO Last administered on 01/08/17 14 :10; Start 01/04/17 at 14:00; Stop 01/08/17 at 15:00; Status DC Iohexol (Omnipaque 350 Inj) 50 ml STK-MED ONCE IVCONTRAST Last administered on 01/04/17 12:37; Start 01/04/17 at 12:37; Stop 01/04/17 at 12:38; Status DC Pantoprazole Sodium (Protonix Inj) 40 mg Q12H IV PUSH Last administered on 09:13; Start 01/05/17 at 10:00; Stop 01/10/17 at 12:23; Status DC Acetazolamide (Diamox) 250 mg ONCE ONCE PO Last administered on 01/07/17 18: 17; Start 01/07/17 at 17:30; Stop 01/07/17 at 17:36; Status DC Furosemide (Lasix) 40 mg BID@ PO Last administered on 01/11/17 09:29; Start 01/09/17 at 09:00; Stop 01/11/17 at 15:03; Status DC Aspirin (Ecotrin Ec) 81 mg DAILY PO Last administered on 01/15/17 10:32; Start 01/08/17 at 11:00 Isosorbide Dinitrate (Isordil) 20 mg TID PO Last administered on 01/15/17 10: 32; Start 01/08/17 at 18:00 Polyethylene Glycol/ Electrolytes (Colyte Liq) 4,000 ml ONCE ONCE PO Last administered on 01/08/17 18:18; Start 01/08/17 at 18:00; Stop 01/08/17 at 18 :01; Status DC Sodium Biphosphate/ Sodium Phosphate (Fleets Enema (Adult)) 118 ml ONCE ONCE RECTAL Last administered on 01/09/17 13:37; Start 01/09/17 at 13:00; Stop 01/09/17 at 13:01; Status DC Sodium Biphosphate/ Sodium Phosphate (Fleets Enema (Adult)) 118 ml ONCE ONCE RECTAL Last administered on 01/09/17 13:38; Start 01/09/17 at 14:00; Stop 01/09/17 at 14:01; Status DC Ketamine HCl (Ketalar Inj) 500 mg STK-MED ONCE .ROUTE ; Start 01/09/17 at 16:57 ; Stop 01/09/17 at 16:58; Status DC Miscellaneous Information ALL NURSING DEPARTME... UNSCH PRN .XX SEE LABEL COMMENTS; Start 01/09/17 at 17:45; Stop 01/10/17 at 17:44; Status DC Ferrous Sulfate (Ferrous Sulfate) 325 mg BID PO Last administered on 10:34; Start 01/10/17 at 21:00 Pantoprazole Sodium (Protonix) 40 mg Q12HR PO Last administered on 01/15/17 10:32; Start 01/10/17 at 21:00 Lidocaine HCl (Xylocaine-Mpf 1% Inj) 10 ml STK-MED ONCE OTHER ; Start 01/09/17 at 12:00; Stop 01/10/17 at 15:15; Status DC Phenylephrine HCl (Neosynephrine/ NS 1000 Mcg/10ml Syr) 1,000 mcg STK-MED ONCE IV ; Start 01/09/17 at 12:00; Stop 01/10/17 at 15:15; Status DC Midazolam HCl (Versed Inj) 4 mg STK-MED ONCE IV ; Start 01/09/17 at 12:00; Stop 01/10/17 at 15:15; Status DC Propofol (Diprivan 200 Mg/20 ml Inj) 600 mg STK-MED ONCE IV ; Start 01/09/17 at 12:00; Stop 01/10/17 at 15:15; Status DC Albuterol/ Ipratropium (Duoneb Neb) 1 ampule Q4HR NEB NEB Last administered on 01/15/17 07:59; Start 01/11/17 at 16:00 Fluconazole (Diflucan) 150 mg DAILY PO Last administered on 01/15/17 10:34; Start 01/11/17 at 13:00 Betamethasone/ Clotrimazole (Lotrisone Cream) 1 applic Q12HR TOPICAL Last administered on 01/14/17 21:44; Start 01/11/17 at 14:00 Miscellaneous (Pill Splitter) 1 ea UNSCH PRN OTHER SEE LABEL COMMENTS; Start 01/11/17 at 13:00 Furosemide (Lasix Inj) 40 mg BID@09,18 IV PUSH Last administered on 01/15/17 10:32; Start 01/11/17 at 18:00 Lactobacillus Acidophilus (Lactinex) 1 tab Q12HR PO Last administered on 10:31; Start 01/12/17 at 21:00 Psyllium Hydrophilic Mucilloid (Metamucil Smooth Texture Sf/ Gf Pkt) 1 pkt DAILY PO ; Start 01/13/17 at 09:00 Senna/Docusate Sodium (Negra-Colace) 1 tab BID PO Last administered on 10:34; Start 01/13/17 at 21:00 Senna/Docusate Sodium (Negra-Colace) 1 tab ONCE ONCE PO Last administered on 11:00; Start 01/13/17 at 11:00; Stop 01/13/17 at 11:01; Status DC Ascorbic Acid (Vitamin C) 250 mg BID PO Last administered on 01/15/17 10:31; Start 01/13/17 at 21:00 Budesonide/ Formoterol Fumarate (Symbicort 160-4.5 Inh) 2 puff Q12HR INH Last administered on 01/14/17 21:43; Start 01/13/17 at 11:00 Heparin Sodium (Porcine) (Heparin Inj) 5,000 units Q12HR SQ Last administered on 01/15/17 10:32; Start 01/13/17 at 18:00 Albuterol Sulfate (Proair Hfa Inh) 2 puff Q4H PRN INH SOB or wheezing; Start 01/14/17 at 11:00 A/P Problem List: (1) COPD (chronic obstructive pulmonary disease) ICD Code: J44.9 - Chronic obstructive pulmonary disease Status: Chronic (2) CAD (coronary artery disease) ICD Code: I25.10 - CAD (coronary artery disease) Status: Chronic (3) Hematochezia ICD Code: K92.1 - Melena (4) Pleural effusion ICD Code: J90 - Pleural effusion, not elsewhere classified (5) CHF exacerbation ICD Code: I50.9 - Heart failure, unspecified Status: Acute (6) 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 Repeat chest x-ray yesterday shows improvement. -Continue with IV Lasix. -Wean oxygen as tolerated. Her baseline is 2-3 L at home. -Patient still on 4 L of oxygen but clinically looks better. Discussed with patient's nurse to wean oxygen. -Ins and outs were not documented as directed. Discussed with charge nurse. Will repeat chest x-ray. COPD (chronic obstructive pulmonary disease) -Continue current regimen. CAD (coronary artery disease) -s/p cardiac bypass in 2005. -Continue hydralazine and Isordil along with asa, Norvasc and metoprolol -Per GI care restart Plavix. Patients on Plavix. Hematochezia - Status post upper and lower endoscopy with noted gastritis, esophagitis. -Follow for transfusion needs -Diet advanced -hemoglobin been stable during her hospital course. Pleural effusion - Status post thoracentesis of 800 mL transudate likely due to CHF -Continue Lasix and follow clinically -Patient on home O2 CHF exacerbation -EF of 40-45%, continue hydralazine (patient allergy to lisinopril and losartan) -Continue with fluid restriction of 1800 ml. -See treatment as above. Anemia due to GI blood loss -Transfuse as needed to keep hemoglobin greater than 8 due to history of coronary artery disease -Appears to have iron deficiency anemia as well as anemia of chronic disease -On iron. -stable. no active bleeding. Hypokalemia -Replenish as needed. DVT prophylaxis -heparin. encourage ambulation. will have PT or nurse walk patient so that she feels comfortable going home. Discharge Planning Slowly improving. Possible discharge home tomorrow with home health. Cindy Sanford MD Jan 15, 2017 11:55
--- NOTE | 2017-01-15 15:59 | RADRPT ---
EXAM DATE/TIME: 01/15/2017 13:42 [facility] COMPARISON: CHEST SINGLE AP, January 13, 2017, 11:34. CHEST PA & LAT, January 11, 2017, 12:59. INDICATIONS : Cough. MEDICAL HISTORY : Myocardial infarction. Chronic obstructive pulmonary SURGICAL HISTORY : CABG. Cardiac stent. Cardiac catheterization. Left breast lumpectomy ENCOUNTER: Subsequent ACUITY: 1 month PAIN SCORE: 0/10 LOCATION: Bilateral chest FINDINGS: AP and lateral views of the chest demonstrate a normal-sized cardiac silhouette with calcification of the aorta in this patient post median sternotomy and CABG. There are bibasilar pleural-parenchymal o pacities, left slightly larger than right. No pneumothorax is seen. Bones and soft tissues demonstrat e no acute finding. CONCLUSION: Small bilateral pleural effusions with associated compressive atelectasis and/or airspace consolidati on. Findings are not significantly changed from the prior study. Quentin Roman MD on January 15, 2017 at 15:57 Board Certified Radiologist. This report was verified electronically.
[2017-01-15] MEDS: RESP: ALBUTEROL 2.5 MG/IPRATROPIUM 0.5 MG NEB (PRN) NEB ×2 (16:32→19:40)
--- NOTE | 2017-01-15 17:58 | HHI.PR ---
Subjective Remarks 71 YOWF with CAD, multiple stents, CHF Pl eff Breathing better No Fever Cytology negative On NC Ambulates with assistance. Objective Vital Signs Vital Signs Date Time Temp Pulse Resp B/P (MAP) Pulse Ox O2 Delivery O2 Flow Rate FiO2 01/15/17 16:36 94 Nasal Cannula 4.00 01/15/17 16:08 98.8 77 18 134/61 (85) 91 01/15/17 14:41 76 136/62 (86) 01/15/17 12:08 98.1 75 18 135/62 (86) 93 01/15/17 08:08 98.6 75 18 130/60 (83) 88 01/15/17 07:59 93 Nasal Cannula 4.00 01/15/17 07:50 84 01/15/17 04:00 Nasal Cannula 3.00 01/15/17 04:00 97.9 71 20 138/63 (88) 90 01/15/17 00:00 97.9 79 20 134/64 (87) 92 01/15/17 00:00 Nasal Cannula 3.00 01/14/17 21:49 94 Nasal Cannula 4.00 01/14/17 20:07 68 01/14/17 20:00 97.8 68 21 124/64 (84) 94 01/14/17 20:00 Nasal Cannula 3.00 I/O 01/14/17 01/14/17 01/14/17 01/15/17 01/15/17 01/15/17 07:00 15:00 23:00 07:00 15:00 23:00 Intake Total 650 ml 600 ml 240 ml Output Total 100 ml Balance 650 ml 600 ml 240 ml -100 ml Intake Oral 650 ml 600 ml 240 ml Output Urine Total 100 ml # Voids 3 3 4 # Bowel Movements 0 1 Result Diagram: 01/15/1740901/15/170 Objective Remarks GENERAL: MBMN WF, mild sob SKIN: Warm and dry. HEAD: Normocephalic. EYES: No scleral icterus. No injection or drainage. NECK: Supple, trachea midline. No JVD or lymphadenopathy. CARDIOVASCULAR: Regular rate and rhythm without murmurs, gallops, or rubs. RESPIRATORY: Breath sounds equal bilaterally. No accessory muscle use. GASTROINTESTINAL: Abdomen soft, non-tender, nondistended. MUSCULOSKELETAL: No cyanosis, or edema. BACK: Nontender without obvious deformity. No CVA tenderness. A/P Assessment and Plan Pleural effusion, s/p TC CHF COPD CAD H/O Nicotine use PLAN: Diurease Supplement 02 Monitor H/H Wean 02 DC plans underway Jayy Bhakta MD Jan 15, 2017 17:58
[2017-01-15] MEDS: ATORVASTATIN 80 MG TAB PO SCH (21:16)
[2017-01-15] MEDS: ALPRAZolam 0.5 MG TAB PO PRN (21:16)
[2017-01-16] VITALS (9 sets, daily range): BP systolic 112–148; BP diastolic 53–67; PULSE 66–84; RESP 20–24; TEMP 97.3–98.2; O2SAT 87–93
[2017-01-16] MEDS: hydrALAZINE HCL 10 MG TAB PO SCH ×3 (06:00→22:35)
[2017-01-16] MEDS: RESP: ALBUTEROL 2.5 MG/IPRATROPIUM 0.5 MG NEB (PRN) NEB ×3 (06:11→21:15)
[2017-01-16] MEDS: PSYLLIUM FIBER SF/GF 6 GM POWD PKT PO SCH (09:00)
[2017-01-16] MEDS: TIOTROPIUM BROMIDE 18 MCG INH INH SCH (09:00)
[2017-01-16] MEDS ORDERED: LACT PO (09:02)
[2017-01-16] MEDS ORDERED: FURO1TAB60 PO (09:02)
[2017-01-16] MEDS ORDERED: ISOS20TA2 PO (09:02)
[2017-01-16] MEDS ORDERED: POTA20TA5 PO (09:02)
[2017-01-16] MEDS ORDERED: Budeson-Formot 160-4.5 Mg Inh INH (09:02)
[2017-01-16] MEDS ORDERED: PERI PO (09:02)
[2017-01-16] MEDS ORDERED: SPIRCAP INH (09:02)
[2017-01-16] MEDS ORDERED: LOTR15T TOPICAL (09:02)
[2017-01-16] MEDS ORDERED: HYDR-3798 PO (09:02)
[2017-01-16] MEDS ORDERED: KONS100P3 PO (09:02)
[2017-01-16] MEDS ORDERED: PROT40TA PO (09:02)
[2017-01-16] MEDS ORDERED: FERR325T20 PO (09:02)
--- NOTE | 2017-01-16 09:05 | HHI.FF ---
Face to Face Verification Diagnosis: (1) COPD (chronic obstructive pulmonary disease) (2) Pleural effusion (3) COPD with acute exacerbation (4) CHF exacerbation (5) C. difficile colitis (6) Acute renal failure superimposed on stage 2 chronic kidney disease Physical Therapy Order: Evaluate and Treat, Improve ambulation, Strength and gait training Occupational Therapy Order: Evaluate and Treat, Gross motor coordination, Fine motor coordination Home Health Nursing Order: Medical education Signs/symptoms of disease process CHF education Oxygen administration education Medication education-adverse effect I have seen patient Maryam Gordon on 01/16/17. My clinical findings support the need for the requested home health care services because: Patient has SOB Deconditioned w/ increased weakness I certify that my clinical findings support that this patient is homebound because: Hx COPD- exertion dyspnea/weakness Cindy Sanford MD Jan 16, 2017 09:05
[2017-01-16] MEDS: LACTOBACILLUS ACIDOPHILUS TAB PO SCH ×2 (09:32→20:37)
[2017-01-16] MEDS: ISOSORBIDE DINITRATE 20 MG TAB PO SCH ×3 (09:32→18:29)
[2017-01-16] MEDS: FERROUS SULFATE 325 MG (65 MG ELEMENTAL IRON) TAB PO SCH ×2 (09:32→20:36)
[2017-01-16] MEDS: FLUoxetine HCL 20 MG CAP PO SCH ×2 (09:32→20:37)
[2017-01-16] MEDS: FLUCONAZOLE 100 MG TAB PO SCH (09:32)
[2017-01-16] MEDS: DOCUSATE SODIUM 50 MG/SENNA 8.6 MG TAB PO SCH ×2 (09:32→20:39)
[2017-01-16] MEDS: ASCORBIC ACID 500 MG TAB PO SCH ×2 (09:33→20:36)
[2017-01-16] MEDS: amLODIPine BESYLATE 5 MG TAB PO SCH ×2 (09:33→20:37)
[2017-01-16] MEDS: CLOPIDOGREL 75 MG TAB PO SCH (09:33)
[2017-01-16] MEDS: PANTOPRAZOLE SOD 40 MG DELAYED RELEASE TAB PO SCH ×2 (09:33→20:38)
[2017-01-16] MEDS: METOPROLOL TARTRATE 25 MG TAB PO SCH ×2 (09:34→20:38)
[2017-01-16] MEDS: POTASSIUM CHLORIDE 20 MEQ CONTROLLED RELEASE TAB PO SCH ×3 (09:34→18:29)
[2017-01-16] MEDS: ASPIRIN EC 81 MG TABEC PO SCH (09:34)
[2017-01-16] MEDS: HEPARIN SODIUM - SQ 10,000 UNITS/ML VIAL SQ SCH ×2 (09:34→20:41)
[2017-01-16] MEDS: FUROSEMIDE 40 MG/4 ML VIAL IV PUSH SCH (09:35)
[2017-01-16] MEDS: BUDESONIDE-FORMOTEROL 160/4.5 MCG INHALER INH SCH ×2 (09:36→20:44)
[2017-01-16] MEDS: ALPRAZolam 0.5 MG TAB PO PRN (10:45)
--- NOTE | 2017-01-16 11:29 | HHI.PR ---
Subjective Remarks 71 YOWF with CAD, multiple stents, CHF Pl eff Breathing better No Fever On NC Got sob in the middle of night required additional nebs Weak Objective Vital Signs Vital Signs Date Time Temp Pulse Resp B/P (MAP) Pulse Ox O2 Delivery O2 Flow Rate FiO2 01/16/17 10:22 92 Nasal Cannula 3.00 01/16/17 08:00 90 Nasal Cannula 4.00 35 Humidified 01/16/17 08:00 97.7 82 20 148/67 (94) 91 01/16/17 08:00 76 01/16/17 04:05 97.6 67 22 129/62 (84) 91 01/16/17 04:00 Nasal Cannula 3.00 Humidified 01/16/17 00:00 Nasal Cannula 3.00 Humidified 01/15/17 23:49 97.3 74 24 120/57 (78) 92 01/15/17 20:35 98.6 91 24 146/64 (91) 93 01/15/17 20:17 84 01/15/17 20:00 Nasal Cannula 3.00 Humidified 01/15/17 19:40 92 Nasal Cannula 4.00 01/15/17 18:22 80 147/66 (93) 01/15/17 16:36 94 Nasal Cannula 4.00 01/15/17 16:08 98.8 77 18 134/61 (85) 91 01/15/17 14:41 76 136/62 (86) 01/15/17 12:08 98.1 75 18 135/62 (86) 93 I/O 01/15/17 01/15/17 01/15/17 01/16/17 01/16/17 01/16/17 07:00 15:00 23:00 07:00 15:00 23:00 Intake Total 240 ml 400 ml 380 ml 480 ml Output Total 300 ml 900 ml 550 ml Balance 240 ml 100 ml -520 ml -70 ml Intake Oral 240 ml 400 ml 380 ml 480 ml Output Urine Total 300 ml 900 ml 550 ml # Voids 4 # Bowel Movements 1 2 1 Result Diagram: 01/15/1740901/15/17409 Objective Remarks GENERAL: MBMN WF, mild sob SKIN: Warm and dry. HEAD: Normocephalic. EYES: No scleral icterus. No injection or drainage. NECK: Supple, trachea midline. No JVD or lymphadenopathy. CARDIOVASCULAR: Regular rate and rhythm without murmurs, gallops, or rubs. RESPIRATORY: Breath sounds equal bilaterally. No accessory muscle use. GASTROINTESTINAL: Abdomen soft, non-tender, nondistended. MUSCULOSKELETAL: No cyanosis, or edema. BACK: Nontender without obvious deformity. No CVA tenderness. A/P Assessment and Plan Pleural effusion, s/p TC CHF COPD CAD H/O Nicotine use PLAN: Diurease Supplement 02 Monitor H/H Wean 02 Symbicort 2 pffs bid DC plans underway Jayy Bhakta MD Jan 16, 2017 11:29
--- NOTE | 2017-01-16 13:13 | HHI.PR ---
Subjective Remarks Follow-up for CHF exacerbation Patient continues to feel shortness of breathing exertion. Night any worsening of symptoms. Patient stated that she feels like her medication makes her sleepy. She stated that she does not feel comfortable going home still. Objective Vitals Vital Signs Date Time Temp Pulse Resp B/P (MAP) Pulse Ox O2 Delivery O2 Flow Rate FiO2 01/16/17 10:22 92 Nasal Cannula 3.00 01/16/17 08:00 90 Nasal Cannula 4.00 35 Humidified 01/16/17 08:00 97.7 82 20 148/67 (94) 91 01/16/17 08:00 76 01/16/17 04:05 97.6 67 22 129/62 (84) 91 01/16/17 04:00 Nasal Cannula 3.00 Humidified 01/16/17 00:00 Nasal Cannula 3.00 Humidified 01/15/17 23:49 97.3 74 24 120/57 (78) 92 01/15/17 20:35 98.6 91 24 146/64 (91) 93 01/15/17 20:17 84 01/15/17 20:00 Nasal Cannula 3.00 Humidified 01/15/17 19:40 92 Nasal Cannula 4.00 01/15/17 18:22 80 147/66 (93) 01/15/17 16:36 94 Nasal Cannula 4.00 01/15/17 16:08 98.8 77 18 134/61 (85) 91 01/15/17 14:41 76 136/62 (86) I/O 01/15/17 01/15/17 01/15/17 01/16/17 01/16/17 01/16/17 07:00 15:00 23:00 07:00 15:00 23:00 Intake Total 240 ml 400 ml 380 ml 480 ml Output Total 300 ml 900 ml 550 ml Balance 240 ml 100 ml -520 ml -70 ml Intake Oral 240 ml 400 ml 380 ml 480 ml Output Urine Total 300 ml 900 ml 550 ml # Voids 4 # Bowel Movements 1 2 1 Result Diagram: 01/15/1740901/15/17409 Objective Remarks GENERAL: no NAD and sitting comfortably on the edge of her bed. CARDIOVASCULAR: Regular rate and rhythm without murmurs, gallops, or rubs. RESPIRATORY: Clear to auscultation bilaterally. No accessory muscle use. GASTROINTESTINAL: Abdomen soft, non-tender, nondistended. MUSCULOSKELETAL: No cyanosis, or edema. Medications and IVs Current Medications Sodium Chloride (NS Flush) 2 ml UNSCH PRN IVF FLUSH AFTER USING IV ACCESS; Start 01/01/17 at 16:45; Stop 01/01/17 at 19:22; Status DC Sodium Chloride (NS Flush) 2 ml UNSCH PRN IV FLUSH FLUSH AFTER USING IV ACCESS ; Start 01/01/17 at 18:30 Sodium Chloride (NS Flush) 2 ml BID IV FLUSH Last administered on 01/15/17 21 :19; Start 01/01/17 at 21:00 Naloxone HCl (Narcan Inj) 0.4 mg UNSCH PRN IV PUSH SEE LABEL COMMENTS; Start 01/01/17 at 18:30 Furosemide (Lasix Inj) 40 mg ONCE ONCE IV PUSH Last administered on 01/01/17 18:50; Start 01/01/17 at 18:30; Stop 01/01/17 at 18:31; Status DC Furosemide (Lasix Inj) 40 mg BID@,18 IV PUSH Last administered on 01/08/17 09:38; Start 01/02/17 at 09:00; Stop 01/08/17 at 10:14; Status DC Enoxaparin Sodium (Lovenox Inj) 80 mg Q12H SQ Last administered on 01/04/17 20 :49; Start 01/01/17 at 20:00; Stop 01/10/17 at 12:23; Status DC Alprazolam (Xanax) 0.5 mg Q8H PRN PO ANXIETY Last administered on 01/16/17 10 :45; Start 01/01/17 at 19:45 Amlodipine Besylate (Norvasc) 5 mg BID PO Last administered on 01/16/17 09:33 ; Start 01/01/17 at 21:00 Aspirin (Ecotrin Ec) 81 mg DAILY PO Last administered on 01/04/17 09:24; Start 01/02/17 at 09:00; Stop 01/08/17 at 11:02; Status DC Atorvastatin Calcium (Lipitor) 80 mg HS PO Last administered on 01/15/17 21: 16; Start 01/01/17 at 21:00 Cholestyramine Resin (Questran 4 Gm Pkt) 4 gm Q12HR PO Last administered on 08:23; Start 01/01/17 at 21:00; Stop 01/13/17 at 10:20; Status DC Clopidogrel Bisulfate (Plavix) 75 mg DAILY PO Last administered on 01/16/17 09:33; Start 01/02/17 at 09:00; Status Future hold Doxycycline Hyclate (Vibratab) 100 mg BID PO Last administered on 01/13/17 08 :23; Start 01/01/17 at 21:00; Stop 01/13/17 at 12:57; Status DC Fluoxetine HCl (PROzac) 20 mg BID PO Last administered on 01/16/17 09:32; Start 01/01/17 at 21:00 Acetaminophen/ Hydrocodone Bitart ([place] 5-325 Mg) 1 tab Q6H PRN PO PAIN 1-10 Last administered on 01/15/17 18:15; Start 01/01/17 at 19:45 Albuterol/ Ipratropium (Duoneb Neb) 1 ampule Q6HR WHILE AWAKE NEB NEB Last administered on 01/05/17 18:56; Start 01/01/17 at 20:00; Stop 01/05/17 at 19: 59; Status DC Isosorbide Mononitrate (Imdur) 30 mg DAILY PO Last administered on 01/08/17 09:38; Start 01/02/17 at 09:00; Stop 01/08/17 at 11:09; Status DC Metoprolol Tartrate (Lopressor) 75 mg BID PO Last administered on 01/16/17 09 :34; Start 01/01/17 at 21:00 Potassium Chloride (KCl) 20 meq DAILY PO ; Start 01/02/17 at 09:00; Stop at 09:29; Status DC Temazepam (Restoril) 15 mg HS PRN PO INSOMNIA Last administered on 01/07/17 20:47; Start 01/01/17 at 19:45 Tiotropium [place] (Spiriva Inh) 18 mcg DAILY INH Last administered on 09:00; Start 01/01/17 at 21:00 Albuterol/ Ipratropium (Duoneb Neb) 1 ampule Q6HR NEB NEB Last administered on 11/10/17at 09:34; Start 01/01/17 at 22:00; Stop 01/05/17 at 21:59; Status DC Albuterol/ Ipratropium (Duoneb Neb) 1 ampule Q2HR NEB PRN NEB wheezing Last administered on 01/16/17 06:11; Start 01/01/17 at 19:45 Potassium Chloride (KCl) 20 meq Q12HR PO ; Start 01/02/17 at 21:00; Stop at 21:00; Status DC Potassium Chloride (KCl) 40 meq ONCE ONCE PO Last administered on 01/02/17 09 :49; Start 01/02/17 at 09:30; Stop 01/02/17 at 09:35; Status DC Potassium Chloride (KCl) 40 meq ONCE ONCE PO Last administered on 01/02/17 13 :30; Start 01/02/17 at 13:30; Stop 01/02/17 at 13:31; Status DC Nitroglycerin (Nitroglycerin 2% Oint) 0.5 inch Q6HR PRN TOPICAL CHEST PAIN; Start 01/02/17 at 14:15 Potassium Chloride (KCl) 20 meq QID PO Last administered on 01/03/17 21:11; Start 01/03/17 at 09:00; Stop 01/04/17 at 08:17; Status DC Magnesium Sulfate/ Dextrose 100 ml @ 100 mls/hr Q1H IV Last administered on 09:00; Start 01/03/17 at 08:00; Stop 01/03/17 at 10:05; Status DC Potassium Chloride (KCl) 20 meq TID PO Last administered on 01/16/17 09:34; Start 01/04/17 at 09:00 Hydralazine HCl (Apresoline) 10 mg Q8HR PO Last administered on 01/16/17 06: 00; Start 01/04/17 at 14:00 Isosorbide Dinitrate (Isordil) 10 mg Q8HR PO Last administered on 01/08/17 14 :10; Start 01/04/17 at 14:00; Stop 01/08/17 at 15:00; Status DC Iohexol (Omnipaque 350 Inj) 50 ml STK-MED ONCE IVCONTRAST Last administered on 01/04/17 12:37; Start 01/04/17 at 12:37; Stop 01/04/17 at 12:38; Status DC Pantoprazole Sodium (Protonix Inj) 40 mg Q12H IV PUSH Last administered on 09:13; Start 01/05/17 at 10:00; Stop 01/10/17 at 12:23; Status DC Acetazolamide (Diamox) 250 mg ONCE ONCE PO Last administered on 01/07/17 18: 17; Start 01/07/17 at 17:30; Stop 01/07/17 at 17:36; Status DC Furosemide (Lasix) 40 mg BID@ PO Last administered on 01/11/17 09:29; Start 01/09/17 at 09:00; Stop 01/11/17 at 15:03; Status DC Aspirin (Ecotrin Ec) 81 mg DAILY PO Last administered on 01/16/17 09:34; Start 01/08/17 at 11:00 Isosorbide Dinitrate (Isordil) 20 mg TID PO Last administered on 01/16/17 09: 32; Start 01/08/17 at 18:00 Polyethylene Glycol/ Electrolytes (Colyte Liq) 4,000 ml ONCE ONCE PO Last administered on 01/08/17 18:18; Start 01/08/17 at 18:00; Stop 01/08/17 at 18 :01; Status DC Sodium Biphosphate/ Sodium Phosphate (Fleets Enema (Adult)) 118 ml ONCE ONCE RECTAL Last administered on 01/09/17 13:37; Start 01/09/17 at 13:00; Stop 01/09/17 at 13:01; Status DC Sodium Biphosphate/ Sodium Phosphate (Fleets Enema (Adult)) 118 ml ONCE ONCE RECTAL Last administered on 01/09/17 13:38; Start 01/09/17 at 14:00; Stop 01/09/17 at 14:01; Status DC Ketamine HCl (Ketalar Inj) 500 mg STK-MED ONCE .ROUTE ; Start 01/09/17 at 16:57 ; Stop 01/09/17 at 16:58; Status DC Miscellaneous Information ALL NURSING DEPARTME... UNSCH PRN .XX SEE LABEL COMMENTS; Start 01/09/17 at 17:45; Stop 01/10/17 at 17:44; Status DC Ferrous Sulfate (Ferrous Sulfate) 325 mg BID PO Last administered on 09:32; Start 01/10/17 at 21:00 Pantoprazole Sodium (Protonix) 40 mg Q12HR PO Last administered on 01/16/17 09:33; Start 01/10/17 at 21:00 Lidocaine HCl (Xylocaine-Mpf 1% Inj) 10 ml STK-MED ONCE OTHER ; Start 01/09/17 at 12:00; Stop 01/10/17 at 15:15; Status DC Phenylephrine HCl (Neosynephrine/ NS 1000 Mcg/10ml Syr) 1,000 mcg STK-MED ONCE IV ; Start 01/09/17 at 12:00; Stop 01/10/17 at 15:15; Status DC Midazolam HCl (Versed Inj) 4 mg STK-MED ONCE IV ; Start 01/09/17 at 12:00; Stop 01/10/17 at 15:15; Status DC Propofol (Diprivan 200 Mg/20 ml Inj) 600 mg STK-MED ONCE IV ; Start 01/09/17 at 12:00; Stop 01/10/17 at 15:15; Status DC Albuterol/ Ipratropium (Duoneb Neb) 1 ampule Q4HR NEB NEB Last administered on 01/15/17 07:59; Start 01/11/17 at 16:00; Stop 01/15/17 at 15:59; Status DC Fluconazole (Diflucan) 150 mg DAILY PO Last administered on 01/16/17 09:32; Start 01/11/17 at 13:00 Betamethasone/ Clotrimazole (Lotrisone Cream) 1 applic Q12HR TOPICAL Last administered on 01/15/17 21:17; Start 01/11/17 at 14:00 Miscellaneous (Pill Splitter) 1 ea UNSCH PRN OTHER SEE LABEL COMMENTS; Start 01/11/17 at 13:00 Furosemide (Lasix Inj) 40 mg BID@,18 IV PUSH Last administered on 01/16/17 09:35; Start 01/11/17 at 18:00 Lactobacillus Acidophilus (Lactinex) 1 tab Q12HR PO Last administered on 09:32; Start 01/12/17 at 21:00 Psyllium Hydrophilic Mucilloid (Metamucil Smooth Texture Sf/ Gf Pkt) 1 pkt DAILY PO ; Start 01/13/17 at 09:00 Senna/Docusate Sodium (Negra-Colace) 1 tab BID PO Last administered on 09:32; Start 01/13/17 at 21:00 Senna/Docusate Sodium (Negra-Colace) 1 tab ONCE ONCE PO Last administered on 11:00; Start 01/13/17 at 11:00; Stop 01/13/17 at 11:01; Status DC Ascorbic Acid (Vitamin C) 250 mg BID PO Last administered on 01/16/17 09:33; Start 01/13/17 at 21:00 Budesonide/ Formoterol Fumarate (Symbicort 160-4.5 Inh) 2 puff Q12HR INH Last administered on 01/16/17 09:36; Start 01/13/17 at 11:00 Heparin Sodium (Porcine) (Heparin Inj) 5,000 units Q12HR SQ Last administered on 01/16/17 09:34; Start 01/13/17 at 18:00 Albuterol Sulfate (Proair Hfa Inh) 2 puff Q4H PRN INH SOB or wheezing; Start 01/14/17 at 11:00 A/P Problem List: (1) COPD (chronic obstructive pulmonary disease) ICD Code: J44.9 - Chronic obstructive pulmonary disease Status: Chronic (2) CAD (coronary artery disease) ICD Code: I25.10 - CAD (coronary artery disease) Status: Chronic (3) Hematochezia ICD Code: K92.1 - Melena (4) Pleural effusion ICD Code: J90 - Pleural effusion, not elsewhere classified (5) CHF exacerbation ICD Code: I50.9 - Heart failure, unspecified Status: Acute (6) 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 Repeat chest x-ray shows improvement. CXR repeated yesterday again which continues to show improvement or stabilization. -Patient is back to her home oxygen level. -She tells motor scooter mechanic that her breathing is improving with me she continues to deny improvement but clinically she is doing better. -Continue her Lasix. Patient has good urine output. COPD (chronic obstructive pulmonary disease) -Continue current regimen. CAD (coronary artery disease) -s/p cardiac bypass in 2005. -Continue hydralazine and Isordil along with asa, Norvasc and metoprolol -Per GI restart Plavix. Patients on Plavix. Hematochezia - Status post upper and lower endoscopy with noted gastritis, esophagitis. -Follow for transfusion needs -Diet advanced -hemoglobin been stable during her hospital course. Pleural effusion - Status post thoracentesis of 800 mL transudate likely due to CHF -Continue Lasix and follow clinically -Patient on home O2 CHF exacerbation -EF of 40-45%, continue hydralazine (patient allergy to lisinopril and losartan) -Continue with fluid restriction of 1800 ml. -See treatment as above. Anemia due to GI blood loss -Transfuse as needed to keep hemoglobin greater than 8 due to history of coronary artery disease -Appears to have iron deficiency anemia as well as anemia of chronic disease -On iron. -stable. no active bleeding. Hypokalemia -Replenish as needed. DVT prophylaxis -heparin. encourage ambulation. will have PT or nurse walk patient so that she feels comfortable going home. Discharge Planning Patient is medically back to her baseline. She is very anxious and does not want to go home. She tells the motor scooter mechanic that she is doing better but with me she stated that she is the same but clinically she is doing better. She stated that she has no one at home so feels uncomfortable going home. She was evaluated by physical therapist and they recommended home with home health. She refused discharge and this is being challenged. Cindy Sanford MD Jan 16, 2017 13:13
[2017-01-16] MEDS: FUROSEMIDE 40 MG TAB PO SCH (18:31)
--- NOTE | 2017-01-16 19:15 | HHI.PR ---
Subjective Remarks NOT SEEN Objective Vitals Vital Signs Date Time Temp Pulse Resp B/P (MAP) Pulse Ox O2 Delivery O2 Flow Rate FiO2 01/16/17 16:00 98.0 73 23 113/53 (73) 87 01/16/17 11:00 97.7 66 20 135/61 (85) 93 01/16/17 10:22 92 Nasal Cannula 3.00 01/16/17 08:00 90 Nasal Cannula 4.00 35 Humidified 01/16/17 08:00 97.7 82 20 148/67 (94) 91 01/16/17 08:00 76 01/16/17 04:05 97.6 67 22 129/62 (84) 91 01/16/17 04:00 Nasal Cannula 3.00 Humidified 01/16/17 00:00 Nasal Cannula 3.00 Humidified 01/15/17 23:49 97.3 74 24 120/57 (78) 92 01/15/17 20:35 98.6 91 24 146/64 (91) 93 01/15/17 20:17 84 01/15/17 20:00 Nasal Cannula 3.00 Humidified 01/15/17 19:40 92 Nasal Cannula 4.00 I/O 01/15/17 01/15/17 01/15/17 01/16/17 01/16/17 01/16/17 07:00 15:00 23:00 07:00 15:00 23:00 Intake Total 240 ml 400 ml 380 ml 480 ml 720 ml Output Total 300 ml 900 ml 550 ml Balance 240 ml 100 ml -520 ml -70 ml 720 ml Intake Oral 240 ml 400 ml 380 ml 480 ml 720 ml Output Urine Total 300 ml 900 ml 550 ml # Voids 4 4 # Bowel Movements 1 2 1 Result Diagram: 01/15/170 01/15/17 0410 Imaging Last Impressions Chest X-Ray 01/15/17 0000 Signed Impressions: Service Date/Time: Sunday, January 15, 2017 13:42 - CONCLUSION: Small bilateral pleural effusions with associated compressive atelectasis and/or airspace consolidation. Findings are not significantly changed from the prior study. Quentin Roman MD Shoulder X-Ray 01/12/17 0000 Signed Impressions: Service Date/Time: Thursday, January 12, 2017 15:42 - CONCLUSION: No acute abnormality. Guilherme Kwan Jr., MD CT Angiography 01/04/17 Signed Impressions: Service Date/Time: December 12:06 - CONCLUSION: No evidence of pulmonary embolism Quentin Eddy MD Thoracentesis Ultrasound 01/03/17 Signed Impressions: Service Date/Time: Tuesday, January 03, 2017 13:18 - CONCLUSION: Uncomplicated ultrasound guided right thoracentesis with removal of 800 cc of clear yellow fluid. Quentin Roman MD Chest Ultrasound 01/02/17 Signed Impressions: Service Date/Time: Monday, January 02, 2017 13:36 - CONCLUSION: There is a small to moderate size simple appearing right pleural effusion. No geovani was performed. 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 Repeat chest x-ray shows improvement. CXR repeated again which continues to show improvement or stabilization. -Patient is back to her home oxygen level. -She tells retail grocer that her breathing is improving with me she continues to deny improvement but clinically she is doing better. -Continue her Lasix. Patient has good urine output. COPD (chronic obstructive pulmonary disease) -Continue current regimen. CAD (coronary artery disease) -s/p cardiac bypass in 2005. -Continue hydralazine and Isordil along with asa, Norvasc and metoprolol -Per GI restart Plavix. Patients on Plavix. Hematochezia - Status post upper and lower endoscopy with noted gastritis, esophagitis. -Follow for transfusion needs -Diet advanced -hemoglobin been stable during her hospital course. Pleural effusion - Status post thoracentesis of 800 mL transudate likely due to CHF -Continue Lasix and follow clinically -Patient on home O2 CHF exacerbation -EF of 40-45%, continue hydralazine (patient allergy to lisinopril and losartan) -Continue with fluid restriction of 1800 ml. -See treatment as above. Anemia due to GI blood loss -Transfuse as needed to keep hemoglobin greater than 8 due to history of coronary artery disease -Appears to have iron deficiency anemia as well as anemia of chronic disease -On iron. -stable. no active bleeding. Hypokalemia -Replenish as needed. DVT prophylaxis -heparin. encourage ambulation. will have PT or nurse walk patient so that she feels comfortable going home. Discharge Planning Patient is medically back to her baseline. She is very anxious and does not want to go home. She tells the retail grocer that she is doing better but with me she stated that she is the same but clinically she is doing better. She stated that she has no one at home so feels uncomfortable going home. She was evaluated by physical therapist and they recommended home with home health. She refused discharge and this is being challenged. Brad Elizalde MD Jan 16, 2017 19:15
[2017-01-16] MEDS: ATORVASTATIN 80 MG TAB PO SCH (20:38)
[2017-01-16] MEDS: SODIUM CHLORIDE 0.9% FLUSH 10 ML FLUSH IV FLUSH SCH (20:43)
[2017-01-16] MEDS: BETAMETHASONE/CLOTRIMAZOLE CREAM 15 GM TOPICAL SCH (20:44)
[2017-01-17] VITALS (9 sets, daily range): BP systolic 107–130; BP diastolic 58–65; PULSE 69–86; RESP 20–24; TEMP 97.3–98.5; O2SAT 91–98
[2017-01-17] MEDS: RESP: ALBUTEROL 2.5 MG/IPRATROPIUM 0.5 MG NEB (PRN) NEB ×4 (02:52→16:51)
[2017-01-17] MEDS: hydrALAZINE HCL 10 MG TAB PO SCH ×3 (06:35→21:06)
[2017-01-17] MEDS: FERROUS SULFATE 325 MG (65 MG ELEMENTAL IRON) TAB PO SCH ×2 (08:14→20:20)
[2017-01-17] MEDS: FLUoxetine HCL 20 MG CAP PO SCH ×2 (08:15→20:19)
[2017-01-17] MEDS: PANTOPRAZOLE SOD 40 MG DELAYED RELEASE TAB PO SCH ×2 (08:15→20:20)
[2017-01-17] MEDS: ISOSORBIDE DINITRATE 20 MG TAB PO SCH ×3 (08:15→17:46)
[2017-01-17] MEDS: LACTOBACILLUS ACIDOPHILUS TAB PO SCH ×2 (08:15→20:20)
[2017-01-17] MEDS: CLOPIDOGREL 75 MG TAB PO SCH (08:15)
[2017-01-17] MEDS: FUROSEMIDE 40 MG TAB PO SCH ×2 (08:16→17:46)
[2017-01-17] MEDS: POTASSIUM CHLORIDE 20 MEQ CONTROLLED RELEASE TAB PO SCH ×3 (08:16→17:46)
[2017-01-17] MEDS: ASPIRIN EC 81 MG TABEC PO SCH (08:16)
[2017-01-17] MEDS: FLUCONAZOLE 100 MG TAB PO SCH (08:16)
[2017-01-17] MEDS: METOPROLOL TARTRATE 25 MG TAB PO SCH ×2 (08:16→20:19)
[2017-01-17] MEDS: ASCORBIC ACID 500 MG TAB PO SCH ×2 (08:17→20:20)
[2017-01-17] MEDS: amLODIPine BESYLATE 5 MG TAB PO SCH ×2 (08:17→20:20)
[2017-01-17] MEDS: HEPARIN SODIUM - SQ 10,000 UNITS/ML VIAL SQ SCH ×2 (08:22→20:20)
[2017-01-17] MEDS: SODIUM CHLORIDE 0.9% FLUSH 10 ML FLUSH IV FLUSH SCH ×2 (08:23→20:20)
[2017-01-17] MEDS: BETAMETHASONE/CLOTRIMAZOLE CREAM 15 GM TOPICAL SCH ×2 (09:00→20:21)
[2017-01-17] MEDS: PSYLLIUM FIBER SF/GF 6 GM POWD PKT PO SCH (09:00)
[2017-01-17] MEDS: BUDESONIDE-FORMOTEROL 160/4.5 MCG INHALER INH SCH ×2 (09:00→20:19)
[2017-01-17] MEDS: TIOTROPIUM BROMIDE 18 MCG INH INH SCH (09:00)
[2017-01-17] MEDS: DOCUSATE SODIUM 50 MG/SENNA 8.6 MG TAB PO SCH ×2 (09:00→20:20)
[2017-01-17] MEDS: ALPRAZolam 0.5 MG TAB PO PRN ×2 (10:13→20:20)
--- NOTE | 2017-01-17 11:39 | RADRPT ---
EXAM DATE/TIME: 01/17/2017 11:02 [facility] COMPARISON: CHEST PA & LAT, January 15, 2017, 13:42. CHEST SINGLE AP, January 13, 2017, 11:34. INDICATIONS : Short of breath. MEDICAL HISTORY : Myocardial infarction. Chronic obstructive pulmonary. disease.Gastroesophageal reflux disease. Conges tive heart failure. SURGICAL HISTORY : CABG. Cardiac stent. Cardiac catheterization. Left breast lumpectomy ENCOUNTER: Subsequent ACUITY: 3 days PAIN SCORE: 0/10 LOCATION: Bilateral chest FINDINGS: A single view of the chest demonstrates a small bilateral pleural effusions with some bibasilar atele ctasis. No pneumothorax is seen. Clips and wires suggest CABG. Cardiac silhouette remains prominent f or an AP film. Osseous structures are intact. CONCLUSION: Bilateral pleural effusions with bibasilar passive atelectasis. Lionel Stoner MD on January 17, 2017 at 11:37 Board Certified Radiologist. This report was verified electronically.
--- NOTE | 2017-01-17 12:36 | HHI.PR ---
Subjective Remarks F/U CHF. Still with significant TIMMONS sat dropped to 85% on 4L after RR break. Increasing BLE swelling. Dw Pulmo, may need rpt thoracentesis Objective Vitals Vital Signs Date Time Temp Pulse Resp B/P (MAP) Pulse Ox O2 Delivery O2 Flow Rate FiO2 01/17/17 08:00 91 Nasal Cannula 3.00 35 01/17/17 08:00 86 01/17/17 08:00 98.5 85 20 107/59 (75) 93 01/17/17 07:11 98 Nasal Cannula 3.00 01/17/17 04:00 98.3 78 22 130/62 (84) 91 01/17/17 02:56 95 Nasal Cannula 3.00 01/17/17 00:00 Nasal Cannula 3.00 Humidified 01/16/17 23:49 97.3 78 24 143/64 (90) 92 01/16/17 21:21 93 Nasal Cannula 3.00 01/16/17 20:20 98.2 76 22 112/54 (73) 93 01/16/17 20:00 Nasal Cannula 3.00 Humidified 01/16/17 19:58 84 01/16/17 16:00 98.0 73 23 113/53 (73) 87 I/O 01/16/17 01/16/17 01/16/17 01/17/17 01/17/17 01/17/17 07:00 15:00 23:00 07:00 15:00 23:00 Intake Total 480 ml 720 ml 240 ml Output Total 550 ml 450 ml Balance -70 ml 720 ml -210 ml Intake Oral 480 ml 720 ml 240 ml Output Urine Total 550 ml 450 ml # Voids 4 # Bowel Movements 1 1 Result Diagram: 01/15/170 01/15/17 0410 Imaging Last Impressions Chest X-Ray 01/17/17 0000 Signed Impressions: Service Date/Time: Tuesday, January 17, 2017 11:02 - CONCLUSION: Bilateral pleural effusions with bibasilar passive atelectasis. Lionel Stoner MD Shoulder X-Ray 01/12/17 0000 Signed Impressions: Service Date/Time: Thursday, January 12, 2017 15:42 - CONCLUSION: No acute abnormality. Guilherme Kwan Jr., MD CT Angiography 01/04/17 0000 Signed Impressions: Service Date/Time: December 12:06 - CONCLUSION: No evidence of pulmonary embolism Quentin Eddy MD Thoracentesis Ultrasound 01/03/17 0000 Signed Impressions: Service Date/Time: Tuesday, January 03, 2017 13:18 - CONCLUSION: Uncomplicated ultrasound guided right thoracentesis with removal of 800 cc of clear yellow fluid. Quentin Roman MD Chest Ultrasound 01/02/17 0000 Signed Impressions: Service Date/Time: Monday, January 02, 2017 13:36 - CONCLUSION: There is a small to moderate size simple appearing right pleural effusion. No geovani was performed. Quentin Roman MD Objective Remarks GENERAL: WD WN in [place] on 4L SKIN: Warm and dry. CARDIOVASCULAR: Regular rate and rhythm. RESPIRATORY: No accessory muscle use. Decreased Breath sounds equal bilaterally. GASTROINTESTINAL: Abdomen soft, non-tender, nondistended. MUSCULOSKELETAL: Extremities without clubbing, cyanosis but with BLE pitting edema. No obvious deformities. NEUROLOGICAL: Awake and alert. No obvious cranial nerve deficits. Motor grossly within normal limits. Five out of 5 muscle strength in the arms and legs. Normal speech. PSYCHIATRIC: Appropriate mood and affect; insight and judgment normal. 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 May need repeat thoracentesis discussed with pulmonary COPD (chronic obstructive pulmonary disease) -Continue current regimen. CAD (coronary artery disease) -s/p cardiac bypass in 2005. -Continue hydralazine and Isordil along with asa, Norvasc and metoprolol -Per GI restart Plavix. Hematochezia - Status post upper and lower endoscopy with noted gastritis, esophagitis. -Follow for transfusion needs -Diet advanced -hemoglobin been stable during her hospital course. Pleural effusion - Status post thoracentesis of 800 mL transudate likely due to CHF -Continue Lasix and follow clinically -Patient on home O2 Acute on chronic systolic and diastolic CHF exacerbation -EF of 40-45%, continue hydralazine (patient allergy to lisinopril and losartan) -Continue with fluid restriction of 1800 ml. -See treatment as above. Anemia due to GI blood loss -Transfuse as needed to keep hemoglobin greater than 8 due to history of coronary artery disease -Appears to have iron deficiency anemia as well as anemia of chronic disease -On iron. -stable. no active bleeding. Hypokalemia -Replenish as needed. DVT prophylaxis -heparin. encourage ambulation Discharge Planning IV will cancel discharge patient not stable requiring more oxygen high likelihood of readmission. Patient also refuses rehabilitation placement. Brad Elizalde MD Jan 17, 2017 12:36
--- NOTE | 2017-01-17 18:04 | HHI.PR ---
Subjective Remarks 71 YOWF with CAD, multiple stents, CHF Pl eff Breathing better No Fever On NC Weak CXR small pl effusion Objective Vital Signs Vital Signs Date Time Temp Pulse Resp B/P (MAP) Pulse Ox O2 Delivery O2 Flow Rate FiO2 01/17/17 16:00 98.5 75 20 110/65 (80) 96 01/17/17 12:00 98.2 71 20 124/58 (80) 95 01/17/17 08:00 91 Nasal Cannula 3.00 35 01/17/17 08:00 86 01/17/17 08:00 98.5 85 20 107/59 (75) 93 01/17/17 07:11 98 Nasal Cannula 3.00 01/17/17 04:00 98.3 78 22 130/62 (84) 91 01/17/17 02:56 95 Nasal Cannula 3.00 01/17/17 00:00 Nasal Cannula 3.00 Humidified 01/16/17 23:49 97.3 78 24 143/64 (90) 92 01/16/17 21:21 93 Nasal Cannula 3.00 01/16/17 20:20 98.2 76 22 112/54 (73) 93 01/16/17 20:00 Nasal Cannula 3.00 Humidified 01/16/17 19:58 84 I/O 01/16/17 01/16/17 01/16/17 01/17/17 01/17/17 01/17/17 07:00 15:00 23:00 07:00 15:00 23:00 Intake Total 480 ml 720 ml 240 ml Output Total 550 ml 450 ml Balance -70 ml 720 ml -210 ml Intake Oral 480 ml 720 ml 240 ml Output Urine Total 550 ml 450 ml # Voids 4 # Bowel Movements 1 1 Result Diagram: 01/15/1740901/15/17409 Objective Remarks GENERAL: MBMN WF, mild sob SKIN: Warm and dry. HEAD: Normocephalic. EYES: No scleral icterus. No injection or drainage. NECK: Supple, trachea midline. No JVD or lymphadenopathy. CARDIOVASCULAR: Regular rate and rhythm without murmurs, gallops, or rubs. RESPIRATORY: Breath sounds equal bilaterally. No accessory muscle use. GASTROINTESTINAL: Abdomen soft, non-tender, nondistended. MUSCULOSKELETAL: No cyanosis, or edema. BACK: Nontender without obvious deformity. No CVA tenderness. A/P Assessment and Plan Pleural effusion, s/p TC CHF COPD CAD H/O Nicotine use PLAN: Diurease Supplement 02 Monitor H/H Wean 02 Symbicort [address] effusion small, no need for TC Jayy Bhakta MD Jan 17, 2017 18:04
[2017-01-17] MEDS: ACETAMINOPHEN/HYDROcodone 325 MG/5 MG TAB PO PRN (18:15)
[2017-01-17] MEDS: ATORVASTATIN 80 MG TAB PO SCH (20:19)
[2017-01-18] VITALS (8 sets, daily range): BP systolic 113–152; BP diastolic 60–66; PULSE 68–83; RESP 20–24; TEMP 98–98.6; O2SAT 90–98
[2017-01-18] MEDS: RESP: ALBUTEROL 2.5 MG/IPRATROPIUM 0.5 MG NEB (PRN) NEB ×6 (03:26→15:08)
[2017-01-18] MEDS: hydrALAZINE HCL 10 MG TAB PO SCH ×2 (05:59→13:54)
[2017-01-18 07:48] LABS: BICARBONATE 30.9 MEQ/L (21.0-32.0); MAGNESIUM 1.9 MG/DL (1.5-2.5); POTASSIUM 3.9 MEQ/L (3.5-5.1)
[2017-01-18] MEDS: TIOTROPIUM BROMIDE 18 MCG INH INH SCH (08:45)
[2017-01-18] MEDS: BUDESONIDE-FORMOTEROL 160/4.5 MCG INHALER INH SCH (08:45)
[2017-01-18] MEDS: METOPROLOL TARTRATE 25 MG TAB PO SCH (08:46)
[2017-01-18] MEDS: POTASSIUM CHLORIDE 20 MEQ CONTROLLED RELEASE TAB PO SCH ×2 (08:46→12:06)
[2017-01-18] MEDS: DOCUSATE SODIUM 50 MG/SENNA 8.6 MG TAB PO SCH (08:46)
[2017-01-18] MEDS: PANTOPRAZOLE SOD 40 MG DELAYED RELEASE TAB PO SCH (08:46)
[2017-01-18] MEDS: LACTOBACILLUS ACIDOPHILUS TAB PO SCH (08:46)
[2017-01-18] MEDS: FUROSEMIDE 40 MG TAB PO SCH (08:46)
[2017-01-18] MEDS: FLUoxetine HCL 20 MG CAP PO SCH (08:47)
[2017-01-18] MEDS: ISOSORBIDE DINITRATE 20 MG TAB PO SCH ×2 (08:47→12:07)
[2017-01-18] MEDS: ASCORBIC ACID 500 MG TAB PO SCH (08:47)
[2017-01-18] MEDS: ASPIRIN EC 81 MG TABEC PO SCH (08:47)
[2017-01-18] MEDS: CLOPIDOGREL 75 MG TAB PO SCH (08:47)
[2017-01-18] MEDS: HEPARIN SODIUM - SQ 10,000 UNITS/ML VIAL SQ SCH (08:47)
[2017-01-18] MEDS: amLODIPine BESYLATE 5 MG TAB PO SCH (08:47)
[2017-01-18] MEDS: FERROUS SULFATE 325 MG (65 MG ELEMENTAL IRON) TAB PO SCH (08:47)
[2017-01-18] MEDS: SODIUM CHLORIDE 0.9% FLUSH 10 ML FLUSH IV FLUSH SCH (08:48)
[2017-01-18] MEDS: PSYLLIUM FIBER SF/GF 6 GM POWD PKT PO SCH (08:48)
[2017-01-18] MEDS: BETAMETHASONE/CLOTRIMAZOLE CREAM 15 GM TOPICAL SCH (08:48)
[2017-01-18] MEDS: ALPRAZolam 0.5 MG TAB PO PRN (10:37)
[2017-01-18] MEDS ORDERED: ALPR0.5T3 PO (11:28)
[2017-01-18] MEDS ORDERED: HYDR-3516 PO (11:28)
--- NOTE | 2017-01-18 11:29 | HHI.DCPOC ---
Discharge Care Plan Diagnosis: (1) CHF exacerbation Your Health Problems Are: Difficulty with ADL Exercise Tolerance Goals to Promote Your Health * To prevent worsening of your condition and complications * To maintain your health at the optimal level Directions to Meet Your Goals Take your medications as prescribed Follow your dietary instruction Follow activity as directed Keep your appointments as scheduled Take your immunizations and boosters as scheduled If your symptoms worsen call your PCP, if no PCP go to Urgent Care Center or Emergency Room Smoking is Dangerous to Your Health. Avoid second hand smoke Call the 24-hour hour crisis hotline for domestic abuse at Brad Elizalde MD Jan 18, 2017 11:29
[2017-01-18] MEDS ORDERED: FUROSEMIDE 20 MG/2 ML VIAL IV PUSH ONE (11:30)
--- NOTE | 2017-01-18 13:20 | HHI.PR ---
Subjective Remarks 71 YOWF with CAD, multiple stents, CHF Pl eff Breathing better No Fever On NC CXR small pl effusion Objective Vital Signs Vital Signs Date Time Temp Pulse Resp B/P (MAP) Pulse Ox O2 Delivery O2 Flow Rate FiO2 01/18/17 08:24 96 Nasal Cannula 4.00 01/18/17 08:00 Nasal Cannula 3.00 01/18/17 08:00 98.0 83 20 152/66 (94) 90 01/18/17 08:00 79 01/18/17 06:21 98 Nasal Cannula 3.00 01/18/17 04:00 98.6 68 22 129/60 (83) 93 01/18/17 04:00 Nasal Cannula 3.00 Humidified 01/18/17 03:28 98 Nasal Cannula 3.00 01/18/17 00:13 98.5 68 24 113/60 (77) 94 01/18/17 00:00 Nasal Cannula 3.00 Humidified 01/17/17 22:07 94 Nasal Cannula 3.00 01/17/17 21:00 97.3 69 24 119/61 (80) 91 01/17/17 20:05 73 01/17/17 20:00 Nasal Cannula 3.00 Humidified 01/17/17 16:00 98.5 75 20 110/65 (80) 96 I/O 01/17/17 01/17/17 01/17/17 01/18/17 01/18/17 01/18/17 07:00 15:00 23:00 07:00 15:00 23:00 Intake Total 240 ml 600 ml 240 ml Output Total 450 ml 450 ml Balance -210 ml 600 ml -210 ml Intake Oral 240 ml 600 ml 240 ml Output Urine Total 450 ml 450 ml # Voids 4 # Bowel Movements 1 3 1 Result Diagram: 01/15/17 0410 01/18/17 0550 Objective Remarks GENERAL: MBMN WF, mild sob SKIN: Warm and dry. HEAD: Normocephalic. EYES: No scleral icterus. No injection or drainage. NECK: Supple, trachea midline. No JVD or lymphadenopathy. CARDIOVASCULAR: Regular rate and rhythm without murmurs, gallops, or rubs. RESPIRATORY: Breath sounds equal bilaterally. No accessory muscle use. GASTROINTESTINAL: Abdomen soft, non-tender, nondistended. MUSCULOSKELETAL: No cyanosis, or edema. BACK: Nontender without obvious deformity. No CVA tenderness. A/P Assessment and Plan Pleural effusion, s/p TC CHF COPD CAD H/O Nicotine use PLAN: Diurease Supplement 02 Monitor H/H Wean 02 Symbicort 2 pffs bid DC plans for rehab Jayy Bhakta MD Jan 18, 2017 13:20
--- NOTE | 2017-01-18 14:11 | HHI.DS ---
Discharge Summary Admission Date Jan 01, 2017 at 18:28 Discharge Date: Jan 18, 2017 Admitting Diagnosis chf exacerbation, elevated troponin, hx of copd (1) COPD (chronic obstructive pulmonary disease) ICD Code: J44.9 - Chronic obstructive pulmonary disease Diagnosis: Principal Status: Chronic (2) CAD (coronary artery disease) ICD Code: I25.10 - CAD (coronary artery disease) Diagnosis: Secondary Status: Chronic (3) Hematochezia ICD Code: K92.1 - Melena Diagnosis: Secondary (4) Pleural effusion ICD Code: J90 - Pleural effusion, not elsewhere classified Diagnosis: Secondary (5) CHF exacerbation ICD Code: I50.9 - Heart failure, unspecified Diagnosis: Principal Status: Acute (6) Anemia due to GI blood loss ICD Code: D50.0 - Iron deficiency anemia secondary to blood loss (chronic) Diagnosis: Secondary (7) Hypokalemia ICD Code: E87.6 - Hypokalemia Diagnosis: Secondary Procedures thoracentesis Brief History - From Admission hx from patient, ER MD and nursing staff have been short of breath since discharge from hospital also has been having pain legs swelling no fever has had cough on ambulance, sweating and nausea and sick to stomach ches tpain chest pain to left 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 no blood in stool or urine ;has recent of cdiff on plavix on home oxygen for copd recent hospital discharge had brunign or pain urination acute distress during interview CBC/BMP: 01/15/17 0410 01/18/17 0550 Significant Findings Laboratory Tests Test 01/18/17 05:50 Blood Urea Nitrogen 21 MG/DL (7-18) Creatinine 1.24 MG/DL (0.50-1.00) Chloride Level 96 MEQ/L (98-107) Estimat Glomerular Filtration Rate 43 ML/MIN (>89) Imaging Last Impressions Chest X-Ray 01/17/17 0000 Signed Impressions: Service Date/Time: Sunday, January 17, 2017 11:02 - CONCLUSION: Bilateral pleural effusions with bibasilar passive atelectasis. Lionel Stoner MD Shoulder X-Ray 01/12/17 0000 Signed Impressions: Service Date/Time: Thursday, January 12, 2017 15:42 - CONCLUSION: No acute abnormality. Guilherme Kwan Jr., MD CT Angiography 01/04/17 0000 Signed Impressions: Service Date/Time: December 12:06 - CONCLUSION: No evidence of pulmonary embolism Quentin Eddy MD Thoracentesis Ultrasound 01/03/17 0000 Signed Impressions: Service Date/Time: Tuesday, January 03, 2017 13:18 - CONCLUSION: Uncomplicated ultrasound guided right thoracentesis with removal of 800 cc of clear yellow fluid. Quentin Roman MD Chest Ultrasound 01/02/17 0000 Signed Impressions: Service Date/Time: Monday, January 02, 2017 13:36 - CONCLUSION: There is a small to moderate size simple appearing right pleural effusion. No geovani was performed. Quentin Roman MD PE at Discharge GENERAL: WD WN in [place] on 4L SKIN: Warm and dry. CARDIOVASCULAR: Regular rate and rhythm. RESPIRATORY: No accessory muscle use. Decreased Breath sounds equal bilaterally. GASTROINTESTINAL: Abdomen soft, non-tender, nondistended. MUSCULOSKELETAL: Extremities without clubbing, cyanosis but with BLE pitting edema. No obvious deformities. NEUROLOGICAL: Awake and alert. No obvious cranial nerve deficits. Motor grossly within normal limits. Five out of 5 muscle strength in the arms and legs. Normal speech. PSYCHIATRIC: Appropriate mood and affect; insight and judgment normal. Hospital Course Acute on chronic respiratory failure -Repeat chest x-ray with small bilateral pleural effusion repeat thoracentesis not indicated at this time. Stable on 4 L nasal cannula. Cleared for discharge by pulmonary COPD (chronic obstructive pulmonary disease) -Continue current regimen. CAD (coronary artery disease) -s/p cardiac bypass in 2005. -Continue hydralazine and Isordil along with asa, Norvasc and metoprolol -Per GI restart Plavix. Hematochezia - Status post upper and lower endoscopy with noted gastritis, esophagitis. -Follow for transfusion needs -Diet advanced -hemoglobin been stable during her hospital course. Pleural effusion - Status post thoracentesis of 800 mL transudate likely due to CHF -Continue Lasix and follow clinically -Patient on home O2 Acute on chronic systolic and diastolic CHF exacerbation -EF of 40-45%, continue hydralazine (patient allergy to lisinopril and losartan) -Continue with fluid restriction of 1800 ml. -See treatment as above. Anemia due to GI blood loss -Transfuse as needed to keep hemoglobin greater than 8 due to history of coronary artery disease -Appears to have iron deficiency anemia as well as anemia of chronic disease -On iron. -stable. no active bleeding. Hypokalemia -Replenish as needed. DVT prophylaxis -heparin. encourage ambulation Pt Condition on Discharge: Stable Discharge Disposition: Discharge to SNF Discharge Time: > 30 minutes Discharge Instructions DIET: Follow Instructions for: Heart Healthy Diet Fluid Restrictions: 1800 mL Activities you can perform: Regular-No Restrictions Follow up Referrals: Appointment for Follow Up - 2-3 Days @ [facility] @ [facility] with Leonardo Valentine MD Pulmonology - 1 Week with Jayy Bhakta MD New Orders: BASIC METABOLIC PROF - 01/22/17 New Medications: Furosemide (Lasix) 40 Mg Tab 40 MG PO BID for congestive heart failure, #30 TAB 0 Refills Pantoprazole (Protonix) 40 Mg Tab 40 MG PO DAILY for gastritis, #30 TAB 0 Refills Betamethasone-Clotrimazole Topical (Lotrisone Topical) 1-0.05% Cream 1 APPLIC TOPICAL Q12HR for Rash, #1 TUBE 0 Refills Ferrous Sulfate (Ferosul) 325 Mg (65 Mg Iron) Tablet 325 MG PO BID for anemia, #60 TAB 0 Refills Hydralazine HCl (Hydralazine HCl) 10 Mg Tablet 10 MG PO Q8HR for hypertension, #90 TAB 0 Refills Isosorbide Dinitrate (Isosorbide Dinitrate) 20 Mg Tab 20 MG PO TID for heart disease, #90 TAB 0 Refills Lactobacillus Acidophilus (Acidophilus/l-Sporogenes) 35 Million Cell-25 Million Cell Tab 1 TAB PO Q12HR for probiotics, #30 TAB 0 Refills Potassium Chloride Microencaps (Potassium Chloride Microencaps) 20 Meq Tab 20 MEQ PO TID for potassium supplement, #45 TAB 0 Refills Psyllium Powder (Konsyl) 6 Gram Pow 1 PKT PO DAILY for fiber, #15 PKT 0 Refills Sennosides-Docusate Sodium (Gnp Senna Plus 8.6-50 mg) 8.6 Mg-50 Mg Tab 1 TAB PO BID for constipation, #30 TAB 0 Refills Tiotropium Inh (Spiriva Handihaler) 18 Mcg Cap 18 MCG INH DAILY for COPD, #30 CAP 0 Refills 1 capsule = 18 mcg [Budeson-Formot 160-4.5 Mg Inh] () 60 PUFF AERO 2 PUFF INH Q12HR for COPD, #1 VIAL 0 Refills Continued Medications: Albuterol 18 GM Inh (Ventolin Hfa 18 GM Inh) 90 Mcg/Act Aer 2 PUFF INH Q4-6H PRN for SHORTNESS OF BREATH, #1 INHALER 0 Refills Alprazolam (Alprazolam) 0.5 Mg Tab 0.5 MG PO Q8H PRN for ANXIETY, #10 TAB 0 Refills (This prescription has been renewed) Amlodipine (Amlodipine) 5 Mg Tab 5 MG PO BID for Blood Pressure Management, #30 TAB [address] (Adult Aspirin EC Low Strength) 81 Mg Tabec 81 MG PO DAILY for Prevent Blood Clot, #30 TAB 3 Refills Atorvastatin (Atorvastatin) 80 Mg Tab 80 MG PO HS for Cholesterol Management, #30 TAB 0 Refills Clopidogrel (Clopidogrel) 75 Mg Tab 75 MG PO DAILY for Blood Clot Prevention, #30 TAB 0 Refills Fluoxetine (Prozac) 20 Mg Cap 20 MG PO BID, #30 CAP 0 Refills Hydrocodone-Acetaminophen (Hydrocodone-Acetaminophen) 5-325 mg Tab 1 TAB PO Q6H PRN for PAIN 1-10, #10 TAB (This prescription has been renewed) Metoprolol Tartrate (Metoprolol Tartrate) 75 Mg Tab 75 MG PO BID, #60 TAB 0 Refills Discontinued Medications: Cholestyramine (Cholestyramine) 4 Gm/Pkt Powd 4 GM PO Q12HR for Diarrhea, #60 PACKET 1 packet contains 4 grams of cholestyramine. Doxycycline Hyclate (Doxycycline Hyclate) 100 Mg Tab 100 MG PO BID for Infection, #10 TAB Furosemide (Furosemide) 20 Mg Tab 20 MG PO BID@09,18 for Prevent Heart Failure, #60 TAB 11 Refills Ipratropium-Albuterol Inh (Combivent Respimat Inh) 20-100 Halfway/Act Aero 1 PUFF INH BID for Broncospasm, #1 INHALER 0 Refills Ipratropium-Albuterol Neb (Duoneb) 0.5-2.5 Mg/3 Ml Neb 1 AMPULE NEB Q6HR WHILE AWAKE NEB for Dyspnea, #93 ML Isosorbide Mononitrate ER (Isosorbide Mononitrate ER) 30 Mg Liza 30 MG PO DAILY for Prevent Chest Pain, #30 TAB 0 Refills Potassium Chloride ER (Potassium Chloride ER) 20 Meq Tab 20 MEQ PO DAILY for Electrolyte Replacement, #30 TAB 0 Refills Prednisone (Prednisone) 20 Mg Tab 20 MG PO DAILY@0800 for copd, #4 TAB Temazepam (Restoril) 15 Mg Cap 15 MG PO HS PRN for INSOMNIA, #10 CAP Vancomycin Inj (Vancomycin Inj) 500 Mg Inj 125 MG PO QID for Infection, #28 INJECTION AbandoBrad MD Jan 18, 2017 14:11
== END 2017-01-18 16:00 | DRG 280 ==
LOC: NEPE 15:34 → NEDA 18:28 → HCIS 01-02 01:32 → N04A 01-11 00:13
PROVIDERS: ADMIT Internal Medicine; ATTEND Internal Medicine
PROC: 5A09557 Assistance with Respiratory Ventilation, Greater than 96 Consecutive Hours, Continuous Positive Airway Pressure (ICD-10-PCS; principal; 2017-01-01)
PROC: 0W993ZX Drainage of Right Pleural Cavity, Percutaneous Approach, Diagnostic (ICD-10-PCS; 2017-01-03)
PROC: 0DB98ZX Excision of Duodenum, Via Natural or Artificial Opening Endoscopic, Diagnostic (ICD-10-PCS; 2017-01-09)
PROC: 0DB68ZX Excision of Stomach, Via Natural or Artificial Opening Endoscopic, Diagnostic (ICD-10-PCS; 2017-01-09)
PROC: 0DB58ZX Excision of Esophagus, Via Natural or Artificial Opening Endoscopic, Diagnostic (ICD-10-PCS; 2017-01-09)
PROC: 0DBK8ZX Excision of Ascending Colon, Via Natural or Artificial Opening Endoscopic, Diagnostic (ICD-10-PCS; 2017-01-09)
PROC: 0DBL8ZX Excision of Transverse Colon, Via Natural or Artificial Opening Endoscopic, Diagnostic (ICD-10-PCS; 2017-01-09)
PROC: 0DBN8ZX Excision of Sigmoid Colon, Via Natural or Artificial Opening Endoscopic, Diagnostic (ICD-10-PCS; 2017-01-09)
PROC: 0DBM8ZX Excision of Descending Colon, Via Natural or Artificial Opening Endoscopic, Diagnostic (ICD-10-PCS; 2017-01-09)
DX: I13.0 Hypertensive heart and chronic kidney disease with heart failure and stage 1 through stage 4 chronic kidney disease, or unspecified chronic kidney disease (principal); J96.21 Acute and chronic respiratory failure with hypoxia; I21.4 Non-ST elevation (NSTEMI) myocardial infarction; I50.43 Acute on chronic combined systolic (congestive) and diastolic (congestive) heart failure; N17.9 Acute kidney failure, unspecified; E87.3 Alkalosis; J90 Pleural effusion, not elsewhere classified; J44.1 Chronic obstructive pulmonary disease with (acute) exacerbation; Z99.81 Dependence on supplemental oxygen; D50.0 Iron deficiency anemia secondary to blood loss (chronic); I25.10 Atherosclerotic heart disease of native coronary artery without angina pectoris; I25.5 Ischemic cardiomyopathy; M19.90 Unspecified osteoarthritis, unspecified site; K21.0 Gastro-esophageal reflux disease with esophagitis; K57.30 Diverticulosis of large intestine without perforation or abscess without bleeding; F32.9 Major depressive disorder, single episode, unspecified; E78.5 Hyperlipidemia, unspecified; H91.93 Unspecified hearing loss, bilateral; D63.8 Anemia in other chronic diseases classified elsewhere; E87.6 Hypokalemia; I35.9 Nonrheumatic aortic valve disorder, unspecified; M25.512 Pain in left shoulder; N18.2 Chronic kidney disease, stage 2 (mild); K52.9 Noninfective gastroenteritis and colitis, unspecified; K29.70 Gastritis, unspecified, without bleeding; I25.2 Old myocardial infarction; Z88.8 Allergy status to other drugs, medicaments and biological substances; Z95.5 Presence of coronary angioplasty implant and graft; Z95.1 Presence of aortocoronary bypass graft; Z87.891 Personal history of nicotine dependence
CPT/HCPCS: 32555; 36600; 71010; 71020; 71275; 73030; 76604; 80048; 80053; 80069; 81001; 82150; 82272; 82550; 82570; 82607; 82805; 82945; 83540; 83550; 83615; 83735; 83880; 83986; 84132; 84157; 84300; 84443; 84484; 85025; 85027; 85610; 85730; 86850; 86900; 86901; 87015; 87070; 87102; 87116; 87205; 87206; 88305; 88312; 89051; 93005; 93306; 94002; 94003; 94640; 94664; C1729; C9113; J1644; J1650; J1940; J2250; J2370; J3475; Q9967

== ENCOUNTER 2017-01-27 10:51 | Inpatient (IN) | payer OTHER, MEDICAID, MEDICARE ==
[~2017-01-27] VITALS: Ht 160 cm; Wt 66.0 kg
[2017-01-27] VITALS (7 sets, daily range): BP systolic 91–108; BP diastolic 52–53; PULSE 61–70; RESP 18–24; TEMP 97.8–98.4; O2SAT 92–100
[~2017-01-27 10:51] MED LIST changes: +Budeson-Formot 160-4.5 Mg Inh INH; -CHOL4POW4 PO; -DOXY100T PO; +FERR325T20 PO; +FURO1TAB60 PO; -FURO20TA PO; +HYDR-3798 PO; -IPRAAER INH; -IPRASOL NEB; +ISOS20TA2 PO; -ISOS30TA3 PO; +KONS100P3 PO; +LACT PO; +LOTR15T TOPICAL; +PERI PO; -POTA-163 PO; +POTA20TA5 PO; -PRED20 PO; +PROT40TA PO; -REST15CA PO; +SPIRCAP INH; -VANC500I3 PO
--- NOTE | 2017-01-27 11:25 | PD ---
HPI Chief Complaint: abdominal pain/sob Time Seen by Provider: 11:18 Travel History International Travel<30 days: No Contact w/Intl Traveler<30days: No History of Present Illness HPI 71-year-old female presents to the emergency department via EMS for evaluation of abdominal pain, dark stools, low hemoglobin as well as increasing shortness of breath. Patient has history of COPD, CHF, pleural effusion, CAD with previous stents, anemia due to GI blood loss. Patient had upper and lower endoscopy with noted gastritis and esophagitis recently. She also had a thoracentesis of 800 mls completed during last admission last month. Patient reports chills, increasing shortness of breath since this morning. Patient reports having dark and tarry stool since November. At psych she has been evaluated for this. However, according to EMS, hemoglobin is now 7.2 at the nursing facility. The patient reports generalized weakness. She states she's had increased shortness of breath since this morning. No chest pain. She reports 6 out of 10 diffuse abdominal pain that will occasionally radiate to the back. She states the pain is sharp and aching. No exacerbating or alleviating factors. She states she has not had this pain before. She does report history of C. difficile. She reports 2 episodes of diarrhea today and one episode of vomiting today. She states she has been on antibiotics recently. Moderate severity. She does report history of LAP-BAND surgery to the abdomen, no other abdominal surgeries. 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) Heart Rhythm Problems: No Cancer: No Cardiac Catheterization: Yes Cardiovascular Problems: Yes High Cholesterol: Yes Chemotherapy: No Chest Pain: No Congestive Heart Failure: Yes COPD: Yes Cerebrovascular Accident: No Coronary Artery Disease: Yes Developmental Delay: No Diabetes: No Diminished Hearing: Yes ([place] both ears) Endocrine: Yes Gastrointestinal Disorders: Yes (LAP BAND) GERD: Yes Genitourinary: Yes Headaches: Yes Hepatitis: No Hiatal Hernia: No Hypertension: Yes Immune Disorder: No Implanted Vascular Access Dvce: Yes Kidney Stones: No Musculoskeletal: Yes Neurologic: Yes Psychiatric: Yes Reproductive: No Respiratory: Yes Immunizations Current: Yes Migraines: Yes Myocardial Infarction: Yes ( 2005,2016) Renal Failure: No Seizures: No Sickle Cell Disease: No Sleep Apnea: No Thyroid Disease: No Triglycerides - High: Yes Ulcer: No PNEUMOCCOCAL Vaccine (Year): 3 Menopausal: Yes Past Surgical History Abdominal Surgery: No AICD: No Appendectomy: Yes Arteriovenous Shunt: No Body Medical Devices: lap band Cardiac Surgery: Yes (HX OF CABG, STENTS) Cholecystectomy: No Coronary Artery Bypass Graft: Yes Coronary Stent: Yes (11 STENTS) Ear Surgery: No Endocrine Surgery: No Eye Surgery: No Genitourinary Surgery: No Gynecologic Surgery: No Hysterectomy: Yes Insulin Pump: No Joint Replacement: No Neurologic Surgery: No Oral Surgery: No Pacemaker: No Thoracic Surgery: Yes Other Surgery: Yes (LEFT BREAST LUMPECTOMY) Social History Alcohol Use: No Tobacco Use: No (QUIT 2 WEEK AGO PER PT) Substance Use: No Allergies-Medications (Allergen,Severity, Reaction): Coded Allergies: lisinopril (Unverified Allergy, Severe, Cough, 01/27/17) PERSISTENT COUGH losartan (Verified Allergy, Severe, Hives, 01/27/17) codeine (Unverified Allergy, Mild, NAUSEA, 01/27/17) PATIENT STATES SHE IS NOT ALLERGIC TO MEDICATION cephalexin (Unverified Allergy, Unknown, Nausea/Vomiting, 01/27/17) fluticasone (Unverified Allergy, Unknown, 01/27/17) THROAT SWELLING fluticasone furoate (Unverified Allergy, Unknown, 01/27/17) THROAT SWELLING salmeterol (Unverified Allergy, Unknown, 01/27/17) THROAT SWELLING azithromycin (Verified Adverse Reaction, Intermediate, DIARRHEA, 01/27/17) Reported Meds & Prescriptions Reported Meds & Active Scripts Active Alprazolam 0.5 Mg Tab 0.5 Mg PO Q8H PRN Hydrocodone-Acetaminophen 5-325 mg Tab 1 Tab PO Q6H PRN Lasix (Furosemide) 40 Mg Tab 40 Mg PO BID Protonix (Pantoprazole Sodium) 40 Mg Tab 40 Mg PO DAILY Acidophilus/l-Sporogenes (Lactobacillus Acidophilus) 35 Million Cell-25 Million Cell Tab 1 Tab PO Q12HR Konsyl (Psyllium Hydrophilic Mucilloid) 6 Gram Pow 1 Pkt PO DAILY [Budeson-Formot 160-4.5 Mg Inh] 60 PUFF Aero 2 Puff INH Q12HR Potassium Chloride Microencaps 20 Meq Tab 20 Meq PO TID Isosorbide Dinitrate 20 Mg Tab 20 Mg PO TID Hydralazine HCl 10 Mg Tablet 10 Mg PO Q8HR Ferosul (Ferrous Sulfate) 325 Mg (65 Mg Iron) Tablet 325 Mg PO BID Spiriva Handihaler (Tiotropium Inh) 18 Mcg Cap 18 Mcg INH DAILY 1 capsule = 18 mcg Nebulizer 1 Mis Mis Ea .ROUTE DIRECTED Oxygen tank (Oxygen) 1 Ea Tank Liter BAKARI.CANULA CONTINUOUS Oxygen Concentrator Portable Gaseous 2 L/min via Nasal Cannula Continuous For 99 months npi [id number] Adult Aspirin EC Low Strength (Aspirin) 81 Mg Tabec 81 Mg PO DAILY Reported Vitamin C (Ascorbic Acid) 500 Mg Capsule 500 Mg PO BID Prednisone 10 Mg Tab 10 Mg PO DAILY Metoprolol Tartrate 75 Mg Tab 50 Mg PO BID Prozac (Fluoxetine HCl) 20 Mg Cap 20 Mg PO BID Ventolin Hfa 18 GM Inh (Albuterol Sulfate) 90 Mcg/Act Aer 2 Puff INH Q4-6H PRN Atorvastatin (Atorvastatin Calcium) 80 Mg Tab 80 Mg PO HS Amlodipine (Amlodipine Besylate) 5 Mg Tab 5 Mg PO BID Clopidogrel (Clopidogrel Bisulfate) 75 Mg Tab 75 Mg PO DAILY Review of Systems Except as stated in HPI: all other systems reviewed are Neg Physical Exam Narrative GENERAL: Well-nourished, well-developed female patient, afebrile. SKIN: Focused skin assessment warm/dry. HEAD: Normocephalic. Atraumatic. EYES: No scleral icterus. No injection or drainage. NECK: Supple, trachea midline. No JVD or lymphadenopathy. CARDIOVASCULAR: Regular rate and rhythm without murmurs, gallops, or rubs. RESPIRATORY: Breath sounds equal bilaterally. No accessory muscle use. Lungs sounds with crackles noted in the bases. GASTROINTESTINAL: Abdomen soft and nondistended. Patient's diffuse tenderness to palpation. MUSCULOSKELETAL: No cyanosis. Patient has bilateral 2+ lower extremity edema. BACK: Nontender without obvious deformity. No CVA tenderness. RECTAL EXAM: No masses or tenderness, stool is dark. Hemoccult is positive. This exam was done with RN at bedside. Data Data Last Documented VS Vital Signs Date Time Temp Pulse Resp B/P (MAP) Pulse Ox O2 Delivery O2 Flow Rate FiO2 01/27/17 12:08 22 93 Nasal Cannula 4.00 01/27/17 11:27 98.4 70 107/52 (70) Orders Orders Complete Blood Count With Diff (01/27/17 11:20) Comprehensive Metabolic Panel (01/27/17 11:20) B-Type Natriuretic Peptide (01/27/17 11:20) Act Partial Throm Time (Ptt) (01/27/17 11:20) Prothrombin Time / Inr (Pt) (01/27/17 11:20) Magnesium (Mg) (01/27/17 11:20) Ckmb (Isoenzyme) Profile (01/27/17 11:20) Troponin I (01/27/17 11:20) Urinalysis - C+S If Indicated (01/27/17 11:20) Iv Access Insert/Monitor (01/27/17 11:20) Electrocardiogram (01/27/17 11:20) Ecg Monitoring (01/27/17 11:20) Oximetry (01/27/17 11:20) Oxygen Administration (01/27/17 11:20) Chest, Single Ap (01/27/17 11:20) Sodium Chloride 0.9% Flush (Ns Flush) (01/27/17 11:30) Albuterol-Ipratropium Neb (Duoneb Neb) (01/27/17 11:30) Lipase (01/27/17 11:20) Type And Screen (01/27/17 11:20) Pantoprazole Inj (Protonix Inj) (01/27/17 11:30) C Diff Toxin Pcr (01/27/17 11:25) Blood Culture (01/27/17 11:26) Lactic Acid Sepsis Protocol (01/27/17 11:26) Red Blood Cells (Rbc) (01/27/17 12:01) Blood Product Administration (01/27/17 12:01) Sodium Chlor 0.9% 250 Ml Inj (Ns 250 Ml (01/27/17 12:15) Furosemide Inj (Lasix Inj) (01/27/17 12:15) Ct Abd/Pel W/O Iv Contrast (01/27/17 ) Metronidazole 500 Mg Inj (Flagyl 500 Mg (01/27/17 13:30) Ciprofloxacin 400 Mg Premix (Cipro 400 M (01/27/17 13:30) Ondansetron Inj (Zofran Inj) (01/27/17 14:00) Admit Order (Ed Use Only) (01/27/17 14:05) Labs Laboratory Tests Test 01/27/17 11:25 01/27/17 11:45 01/27/17 13:54 White Blood Count 11.7 TH/MM3 Red Blood Count 2.47 MIL/MM3 Hemoglobin 7.0 GM/DL Hematocrit 21.9 % Mean Corpuscular Volume 88.6 FL Mean Corpuscular Hemoglobin 28.4 PG Mean Corpuscular Hemoglobin Concent 32.0 % Red Cell Distribution Width 17.5 % Platelet Count 245 TH/MM3 Mean Platelet Volume 9.6 FL Neutrophils (%) (Auto) 89.9 % Lymphocytes (%) (Auto) 4.6 % Monocytes (%) (Auto) 5.3 % Eosinophils (%) (Auto) 0.0 % Basophils (%) (Auto) 0.2 % Neutrophils # (Auto) 10.5 TH/MM3 Lymphocytes # (Auto) 0.5 TH/MM3 Monocytes # (Auto) 0.6 TH/MM3 Eosinophils # (Auto) 0.0 TH/MM3 Basophils # (Auto) 0.0 TH/MM3 CBC Comment DIFF FINAL Differential Comment Prothrombin Time 12.0 SEC Prothromb Time International Ratio 1.2 RATIO Activated Partial Thromboplast Time 23.8 SEC Blood Urea Nitrogen 31 MG/DL Creatinine 1.59 MG/DL Random Glucose 112 MG/DL Total Protein 6.2 GM/DL Albumin 2.9 GM/DL Calcium Level 8.6 MG/DL Magnesium Level 2.0 MG/DL Alkaline Phosphatase 80 U/L Aspartate Amino Transf (AST/SGOT) 30 U/L Alanine Aminotransferase (ALT/SGPT) 38 U/L Total Bilirubin 0.7 MG/DL Sodium Level 134 MEQ/L Potassium Level 4.3 MEQ/L Chloride Level 98 MEQ/L Carbon Dioxide Level 27.7 MEQ/L Anion Gap 8 MEQ/L Estimat Glomerular Filtration Rate 32 ML/MIN Total Creatine Kinase 78 U/L Troponin I 1.94 NG/ML B-Type Natriuretic Peptide GREATER THAN 5000 PG/ML Lipase 38 U/L Lactic Acid Level 2.2 mmol/L [facility] Medical Decision Making Medical Screen Exam Complete: Yes Emergency Medical Condition: Yes Medical Record Reviewed: Yes Interpretation(s) chest x-ray - CONCLUSION: 1. Bilateral pleural effusions and bibasilar densities greater on the right. 2. Cardiomegaly with interstitial edema CT abdomen/pelvis - CONCLUSION: 1. Progressive colitis involving the cecum and proximal ascending colon without evidence for bowel infarction , perforation or abscess. There is however trace amount of free fluid in the pelvis which may be reactive. Differential considerations include infectious/inflammatory versus ischemic colitis given the diffuse vascular atherosclerotic calcifications. 2. Minimally enlarged small bilateral pleural effusions. 3. Sigmoid diverticulosis without definitive evidence for diverticulitis although evaluation is limited by fluid in the pelvis. 4. Stable additional ancillary findings, as above. Differential Diagnosis Lower GI bleed versus upper GI bleed versus CHF exacerbation versus pleural effusion versus ACS versus C. difficile diarrhea versus pneumonia versus COPD exacerbation versus CHF exacerbation Narrative Course 71-year-old female presents to the emergency department for evaluation of increasing shortness breath, abdominal pain, low hemoglobin, dark stools. EKG, CBC, CMP, lactic acid, BNP, lipase, magnesium, CK, troponin, PTT, PT/INR, UA, type and screen are ordered and pending. Stool for C. difficile is ordered and pending. Blood cultures 2 are ordered and pending. Chest x-ray and CT abdomen /pelvis with IV contrast are ordered and pending. Patient is given DuoNeb 3 and Protonix 40 mg IV. EKG shows SR, HR 72. CBC shows leukocytosis of 11.7, anemia with a hemoglobin 7.0, hematocrit 21.9. CMP is and 31, creatinine 1.59, glucose 112. Lipase is 38. CK is 78. Troponin is 1.94. Magnesium is 2.0. BNP is greater than 5000. Lactic acid is 2.2. PT is 12.0, INR 1.2, PTT 23.8. UA is pending. Stool is pending. Chest x-ray shows bilateral pleural effusions and bibasilar densities greater on the right; Cardiomegaly with interstitial edema. CT abdomen/pelvis shows progressive colitis involving the cecum and proximal ascending colon without evidence for bowel infarction , perforation or abscess. There is however trace amount of free fluid in the pelvis which may be reactive. Differential considerations include infectious/inflammatory versus ischemic colitis given the diffuse vascular atherosclerotic calcifications; Minimally enlarged small bilateral pleural effusions; Sigmoid diverticulosis without definitive evidence for diverticulitis although evaluation is limited by fluid in the pelvis; Stable additional ancillary findings, as above. Patient is started on Flagyl and Cipro IV for colitis. Hospitalist is paged for admission. Dr. Arenas accepted admission. She would like me to contact cardiology. The patient did see her data manager, Dr. Valentine, yesterday. I reviewed his note. Dr. Valentine is paged for consultation. I spoke to Dr. Muniz who is site acquisition manager for Dr. Valentine. He agrees heparin gtt is not indicated due to GI bleed. After patient is admitted. She became hypotensive with systolic blood pressure of 89. She states she did not feel well and felt she was going to pass out. Attending physician is also at bedside. She recommends patient be admitted to the emergency room specialist. Patient is placed on bipap. Dr. Varghese accepted admission. Diagnosis Primary Impression: Anemia due to GI blood loss Additional Impressions: CHF exacerbation Qualified Codes: I50.9 - Heart failure, unspecified Elevated troponin Colitis Admitting Information Admitting Physician Requests: Sabrina Pollard Jan 27, 2017 11:25
[2017-01-27] MEDS ORDERED: SODIUM CHLORIDE 0.9% FLUSH 10 ML FLUSH IVF PRN (11:30)
[2017-01-27] MEDS ORDERED: PANTOPRAZOLE SODIUM 40 MG VIAL IV PUSH ONE (11:30)
[2017-01-27 11:57] LABS: AUTOMATED NEUTROPHIL # 10.5 TH/MM3 (1.8-7.7); BASOPHIL % 0.2 % (0.0-2.0); HEMATOCRIT 21.9 % (35.0-46.0); HEMO FLAGS DIFF FINAL; LYMPH % 4.6 % (9.0-44.0); LYMPHOCYTE # 0.5 TH/MM3 (1.0-4.8); MEAN CELL VOLUME 88.6 FL (80.0-100.0); MEAN CORPUSCULAR HEMOGLOBIN 28.4 PG (27.0-34.0); MONO % 5.3 % (0.0-8.0); NEUT % 89.9 % (16.0-70.0); PLATELET COUNT 245 TH/MM3 (150-450); RED BLOOD COUNT 2.47 MIL/MM3 (4.00-5.30); RED CELL DISTRIBUTION WIDTH 17.5 % (11.6-17.2); WHITE BLOOD COUNT 11.7 TH/MM3 (4.0-11.0)
[2017-01-27] MEDS: RESP: ALBUTEROL 2.5 MG/IPRATROPIUM 0.5 MG NEB (SCH) INH (12:00)
[2017-01-27 12:03] LABS: APTT (PATIENT) 23.8 SEC (24.3-30.1); INTERNATIONAL NORMALIZED RATIO 1.2 RATIO
--- NOTE | 2017-01-27 12:04 | RADRPT ---
EXAM DATE/TIME: 01/27/2017 11:48 [facility] COMPARISON: CHEST SINGLE AP, January 17, 2017, 11:02. INDICATIONS : Short of Breath MEDICAL HISTORY : Myocardial infarction. Chronic obstructive pulmonary disease.Gastroesophageal reflux disease. Congest damon heart failure. SURGICAL HISTORY : CABG. Cardiac stent. Cardiac catheterization. Left breast lumpectomy ENCOUNTER: Initial ACUITY: 1 day PAIN SCORE: 0/10 LOCATION: Bilateral chest FINDINGS: A single view of the chest demonstrates cardiomegaly with interstitial edema. Small right pleural eff usion and right basilar density. Tiny left pleural effusion. Status post CABG. Osseous structures ar e intact. CONCLUSION: 1. Bilateral pleural effusions and bibasilar densities greater on the right. 2. Cardiomegaly with interstitial edema David Rose MD on January 27, 2017 at 12:01 Board Certified Radiologist. This report was verified electronically.
[2017-01-27 12:10] LABS: ALT (GPT) 38 U/L (10-53); ANION GAP 8 MEQ/L (5-15); AST (GOT) 30 U/L (15-37); BICARBONATE 27.7 MEQ/L (21.0-32.0); BLOOD UREA NITROGEN 31 MG/DL (7-18); CHLORIDE 98 MEQ/L (98-107); GLOMERULAR FILTRATION RATE 32 ML/MIN (>89); POTASSIUM 4.3 MEQ/L (3.5-5.1); SODIUM (NA) 134 MEQ/L (136-145)
[2017-01-27 12:14] LABS: ALKALINE PHOSPHATASE 80 U/L (45-117); TOTAL BILIRUBIN ADULT 0.7 MG/DL (0.2-1.0)
[2017-01-27] MEDS ORDERED: SODIUM CHLOR 0.9% 250 ML INJ 250 ML IV ONE (12:15)
[2017-01-27] MEDS ORDERED: FUROSEMIDE 20 MG/2 ML VIAL IV PUSH ONE (12:15)
[2017-01-27 12:16] LABS: CREATINE KINASE 78 U/L (26-192)
[2017-01-27] MEDS ORDERED: PRED10 PO (12:29)
[2017-01-27] MEDS ORDERED: ASCO500C PO (12:29)
--- NOTE | 2017-01-27 13:08 | PD ---
Physical Exam Date Seen by Provider: Jan 27, 2017 Time Seen by Provider: 12:00 Narrative I, Dr. Araujo, have reviewed the advance practice practitioner's documentation and am in agreement, met with the patient face to face, made the diagnosis, and the medical decision making was done by me. *My assessment and Findings: Patient seen and evaluated with nurse practitioner , please see nurse practitioner note for further details. She is here for dyspnea on exertion, general weakness, has severe anemia with hemoglobin is 7, history of CHF, having dark stools. On exam, she is weak appearing, abdomen is diffusely tender especially in the upper abdomen. No guarding or rebound. Pulmonary exam is decreased at the bases. Chest x-ray is fairly concerning for underlying CHF and hemoglobin is low. Patient will need transfusion especially considering her cardiac history. Planning to transfuse and give her Lasix, planning for admission for further treatment. In addition, he will call check shows that she is Hemoccult positive and there is concern of GI bleeding as well. Protonix has been given in the ER. Cardiac enzymes are elevated, likely secondary to CHF but she could have an underlying non-ST elevation SC. EKG did not show any signs of acute ST-T elevations. Multiple issues, planning to admit for further treatment likely will need to go to stepdown unit or higher care unit. Laboratory Tests Test 01/27/17 11:25 01/27/17 11:45 White Blood Count 11.7 TH/MM3 (4.0-11.0) Red Blood Count 2.47 MIL/MM3 (4.00-5.30) Hemoglobin 7.0 GM/DL (11.6-15.3) Hematocrit 21.9 % (35.0-46.0) Red Cell Distribution Width 17.5 % (11.6-17.2) Neutrophils (%) (Auto) 89.9 % (16.0-70.0) Lymphocytes (%) (Auto) 4.6 % (9.0-44.0) Neutrophils # (Auto) 10.5 TH/MM3 (1.8-7.7) Lymphocytes # (Auto) 0.5 TH/MM3 (1.0-4.8) Prothrombin Time 12.0 SEC (9.8-11.6) Activated Partial Thromboplast Time 23.8 SEC (24.3-30.1) Blood Urea Nitrogen 31 MG/DL (7-18) Creatinine 1.59 MG/DL (0.50-1.00) Random Glucose 112 MG/DL (74-106) Total Protein 6.2 GM/DL (6.4-8.2) Albumin 2.9 GM/DL (3.4-5.0) Sodium Level 134 MEQ/L (136-145) Estimat Glomerular Filtration Rate 32 ML/MIN (>89) Troponin I 1.94 NG/ML (0.02-0.05) B-Type Natriuretic Peptide GREATER THAN 5000 PG/ML Lipase 38 U/L (73-393) Lactic Acid Level 2.2 mmol/L (0.4-2.0) Last 24 hours Impressions Chest X-Ray 01/27/17 1120 Signed Impressions: Service Date/Time: Sunday, January 27, 2017 11:48 - CONCLUSION: 1. Bilateral pleural effusions and bibasilar densities greater on the right. 2. Cardiomegaly with interstitial edema David Rose MD After patient was admitted to hospitalist service, she was getting blood when she started reporting worsening shortness of breath and dizziness. Her blood pressure at that time was 83/50. There is concerned of worsening in condition, a evaluation at that time noted that she was quite pale, diaphoretic, and her pulmonary rails were worsening. BiPAP was initiated in the ER. And at this point, I suspect that the patient will need a higher level care. I have talked her regarding CODE STATUS and she wants full code. Case was then discussed with Dr. Varghese of intensive care unit who agrees to take the patient. Data Data Last Documented VS Vital Signs Date Time Temp Pulse Resp B/P (MAP) Pulse Ox O2 Delivery O2 Flow Rate FiO2 01/27/17 12:08 22 93 Nasal Cannula 4.00 01/27/17 11:27 98.4 70 107/52 (70) Orders Orders Complete Blood Count With Diff (01/27/17 11:20) Comprehensive Metabolic Panel (01/27/17 11:20) B-Type Natriuretic Peptide (01/27/17 11:20) Act Partial Throm Time (Ptt) (01/27/17 11:20) Prothrombin Time / Inr (Pt) (01/27/17 11:20) Magnesium (Mg) (01/27/17 11:20) Ckmb (Isoenzyme) Profile (01/27/17 11:20) Troponin I (01/27/17 11:20) Urinalysis - C+S If Indicated (01/27/17 11:20) Iv Access Insert/Monitor (01/27/17 11:20) Electrocardiogram (01/27/17 11:20) Ecg Monitoring (01/27/17 11:20) Oximetry (01/27/17 11:20) Oxygen Administration (01/27/17 11:20) Chest, Single Ap (01/27/17 11:20) Sodium Chloride 0.9% Flush (Ns Flush) (01/27/17 11:30) Albuterol-Ipratropium Neb (Duoneb Neb) (01/27/17 11:30) Lipase (01/27/17 11:20) Type And Screen (01/27/17 11:20) Pantoprazole Inj (Protonix Inj) (01/27/17 11:30) C Diff Toxin Pcr (01/27/17 11:25) Blood Culture (01/27/17 11:26) Lactic Acid Sepsis Protocol (01/27/17 11:26) Red Blood Cells (Rbc) (01/27/17 12:01) Blood Product Administration (01/27/17 12:01) Sodium Chlor 0.9% 250 Ml Inj (Ns 250 Ml (01/27/17 12:15) Furosemide Inj (Lasix Inj) (01/27/17 12:15) Ct Abd/Pel W/O Iv Contrast (01/27/17 ) Metronidazole 500 Mg Inj (Flagyl 500 Mg (01/27/17 13:30) Ciprofloxacin 400 Mg Premix (Cipro 400 M (01/27/17 13:30) Ondansetron Inj (Zofran Inj) (01/27/17 14:00) Admit Order (Ed Use Only) (01/27/17 14:05) Labs Laboratory Tests Test 01/27/17 11:25 01/27/17 11:45 01/27/17 13:54 White Blood Count 11.7 TH/MM3 Red Blood Count 2.47 MIL/MM3 Hemoglobin 7.0 GM/DL Hematocrit 21.9 % Mean Corpuscular Volume 88.6 FL Mean Corpuscular Hemoglobin 28.4 PG Mean Corpuscular Hemoglobin Concent 32.0 % Red Cell Distribution Width 17.5 % Platelet Count 245 TH/MM3 Mean Platelet Volume 9.6 FL Neutrophils (%) (Auto) 89.9 % Lymphocytes (%) (Auto) 4.6 % Monocytes (%) (Auto) 5.3 % Eosinophils (%) (Auto) 0.0 % Basophils (%) (Auto) 0.2 % Neutrophils # (Auto) 10.5 TH/MM3 Lymphocytes # (Auto) 0.5 TH/MM3 Monocytes # (Auto) 0.6 TH/MM3 Eosinophils # (Auto) 0.0 TH/MM3 Basophils # (Auto) 0.0 TH/MM3 CBC Comment DIFF FINAL Differential Comment Prothrombin Time 12.0 SEC Prothromb Time International Ratio 1.2 RATIO Activated Partial Thromboplast Time 23.8 SEC Blood Urea Nitrogen 31 MG/DL Creatinine 1.59 MG/DL Random Glucose 112 MG/DL Total Protein 6.2 GM/DL Albumin 2.9 GM/DL Calcium Level 8.6 MG/DL Magnesium Level 2.0 MG/DL Alkaline Phosphatase 80 U/L Aspartate Amino Transf (AST/SGOT) 30 U/L Alanine Aminotransferase (ALT/SGPT) 38 U/L Total Bilirubin 0.7 MG/DL Sodium Level 134 MEQ/L Potassium Level 4.3 MEQ/L Chloride Level 98 MEQ/L Carbon Dioxide Level 27.7 MEQ/L Anion Gap 8 MEQ/L Estimat Glomerular Filtration Rate 32 ML/MIN Total Creatine Kinase 78 U/L Troponin I 1.94 NG/ML B-Type Natriuretic Peptide GREATER THAN 5000 PG/ML Lipase 38 U/L Lactic Acid Level 2.2 mmol/L [facility] Medical Record Reviewed: Yes Supervised Visit with GOLDIE: Yes Diagnosis Primary Impression: Anemia due to GI blood loss Additional Impressions: Elevated troponin CHF exacerbation Qualified Codes: I50.9 - Heart failure, unspecified Admitting Information Admitting Physician Requests: it Shante Araujo MD Jan 27, 2017 13:08
--- NOTE | 2017-01-27 13:22 | RADRPT ---
EXAM DATE/TIME: 01/27/2017 12:52 [facility] COMPARISON: CT ABDOMEN & PELVIS W/O CONTRAST, December 19, 2016, 10:10. INDICATIONS : Abdomen pain with dark stools. ORAL CONTRAST: No oral contrast ingested. RADIATION DOSE: 8.44 CTDIvol (mGy) MEDICAL HISTORY : Cardiovascular disease. Hypertension. Gastroesophageal reflux disease.C-Diff SURGICAL HISTORY : CABG Appendectomy.Hysterectomy. ENCOUNTER: Initial ACUITY: 3 days PAIN SCALE: 7/10 LOCATION: Bilateral abdomen TECHNIQUE: Volumetric scanning of the abdomen and pelvis was performed. Using automated exposure control and ad justment of the mA and/or kV according to patient size, radiation dose was kept as low as reasonably achievable to obtain optimal diagnostic quality images. DICOM format image data is available electro nically for review and comparison. FINDINGS: LOWER LUNGS: Minimally enlarged small bilateral, right greater left pleural effusions with associated mild airspac e disease at the lung bases. LIVER: Homogeneous density without lesion. There is no dilation of the biliary tree. Gallbladder is mildly distended but otherwise unremarkable by CT. SPLEEN: Normal size without lesion. PANCREAS: Within normal limits. KIDNEYS: Chronic small appearing right kidney. Stable 2.8 cm cyst in the anterior inferior pole the left kidne y. Left kidney is otherwise unremarkable. ADRENAL GLANDS: Within normal limits. VASCULAR: Heavily calcified distal bile aorta. BOWEL/MESENTERY: Progressive bowel wall thickening and pericolonic stranding involving the cecum and very proximal asc ending colon. Distal terminal ileum appears grossly unremarkable. Distal ascending and remaining colo n appear unremarkable except for redemonstration of moderate sigmoid diverticulosis. There is trace f ree fluid in the deep pelvis. ABDOMINAL WALL: Within normal limits. RETROPERITONEUM: There is no lymphadenopathy. BLADDER: No wall thickening or mass. REPRODUCTIVE: Uterus is surgically absent. INGUINAL: There is no lymphadenopathy or hernia. MUSCULOSKELETAL: Within normal limits for patient age. CONCLUSION: 1. Progressive colitis involving the cecum and proximal ascending colon without evidence for bowel in farction , perforation or abscess. There is however trace amount of free fluid in the pelvis which ma y be reactive. Differential considerations include infectious/inflammatory versus ischemic colitis gi doni the diffuse vascular atherosclerotic calcifications. 2. Minimally enlarged small bilateral pleural effusions. 3. Sigmoid diverticulosis without definitive evidence for diverticulitis although evaluation is limit ed by fluid in the pelvis. 4. Stable additional ancillary findings, as above. Prasad Brown MD on January 27, 2017 at 13:12 Board Certified Radiologist. This report was verified electronically.
[2017-01-27] MEDS ORDERED: CIPROFLOXACIN 400 MG PREMIX 200 ML IV ONE (13:30)
[2017-01-27] MEDS ORDERED: metroNIDAZOLE 500 MG INJ 100 ML IV ONE (13:30)
[2017-01-27 13:47] LABS: LACTIC ACID GHOST NOT REPORTABLE
[2017-01-27] MEDS ORDERED: ONDANSETRON HCL 4 MG/2 ML VIAL IV PUSH ONE (14:00)
[2017-01-27] MEDS ORDERED: ATROPINE SULFATE 1 MG/10 ML SYRINGE ONE (15:00)
[2017-01-27] MEDS ORDERED: SUCCINYLCHOLINE CHLORIDE 200 MG/10 ML VIAL ONE (15:05)
[2017-01-27] MEDS ORDERED: ETOMIDATE 40 MG/20 ML VIAL ONE (15:05)
[2017-01-27 15:24] LABS: C. DIFF EPI 027 PRESUMPTIVE POSITIVE (NEGATIVE)
[2017-01-27] MEDS ORDERED: SODIUM CHLOR 0.9% 1000 ML INJ 1,000 ML IV SCH (15:34)
[2017-01-27] MEDS ORDERED: PROPOFOL 1000 MG/100 ML INJ 100 ML IV PRN (15:45)
[2017-01-27] MEDS ORDERED: SODIUM CHLORIDE 0.9% FLUSH 10 ML FLUSH IV FLUSH PRN (15:45)
[2017-01-27] MEDS ORDERED: MISCELLANEOUS NURSING INFORMATION XX SCH (15:45)
[2017-01-27] MEDS ORDERED: CHLORHEXIDINE GLUCONATE 2 % 1 PACK (2 CLOTHS) TOP PRN (15:45)
[2017-01-27] MEDS ORDERED: MIDAZOLAM 100 MG/100 ML INJ 100 ML IV PRN (15:45)
--- NOTE | 2017-01-27 15:57 | HHI.HP ---
HPI Service Critical Care Medicine Primary Care Physician Unknown Admission Diagnosis CHF exacerbation; elevated troponin; anemia from GI bleed; colitis Diagnosis: (1) Cardiopulmonary arrest Diagnosis: Principal (2) GI bleed Diagnosis: Principal (3) Acute renal failure superimposed on stage 2 chronic kidney disease Diagnosis: Principal (4) Acute respiratory failure Diagnosis: Principal (5) CAD (coronary artery disease) Diagnosis: Principal (6) Elevated troponin Diagnosis: Principal Chief Complaint: Patient with GI bleed short of breath Travel History International Travel<30 Days: No Contact w/Intl Traveler <30 Da: No Traveled to Known Affected Are: No History of Present Illness This is a 71-year-old female. Date of admission 01/27/2017. Her healthcare proxy Nick Shelley. Patient presents to [facility] with acute onset of abdominal pain/generalized, melanotic stools and shortness of breath. She has no history of lower GI bleed with an EGD and colonoscopy 01/10/2060 revealed esophagitis, gastritis, colitis, diverticulosis. Pathology noted of supportive gastritis and colitis. History of C. difficile 027 positive November 2016, CHF ejection fraction 40% and COPD. She also has a history of a living cardiac stents and average 5. Also history of pleural effusion status post thoracentesis 800 cc last admission.. Per document, she was admitted with chief complaint of chills, increasing shortness of breath since this morning. Her hemoglobin was noted be 7 at extended care facility she transferred here for further evaluation treatment. The patient reports generalized weakness. She states she's had increased shortness of breath since this morning. No chest pain. She reports 6 out of 10 diffuse abdominal pain that will occasionally radiate to the back. She states the pain is sharp and aching. No exacerbating or alleviating factors. She states she has not had this pain before. She does report history of C. difficile. She reports 2 episodes of diarrhea today and one episode of vomiting today. She states she has been on antibiotics recently. Moderate severity. She does report history of LAP-BAND surgery to the abdomen, no other abdominal surgeries. CT abdomen/pelvis revealed diffuse colitis with no perforation. Patient received intravenous pantoprazole and received when he PRBCs and EGD followed by furosemide. In the ED, patient became bradycardic and received atropine however came bradycardic and CPR was initiated. Patient received 10 minutes of chest compressions, epinephrine, bicarbonate until resolution of spontaneous circulation. During the code, I spoke to healthcare proxy Alejandra. At that time we made the patient a DNR. Patient was brought to the floor where she passed Review of Systems ROS Limitations: Intubated Past Family Social History Allergies: Coded Allergies: lisinopril (Unverified Allergy, Severe, Cough, 01/27/17) PERSISTENT COUGH losartan (Verified Allergy, Severe, Hives, 01/27/17) codeine (Unverified Allergy, Mild, NAUSEA, 01/27/17) PATIENT STATES SHE IS NOT ALLERGIC TO MEDICATION cephalexin (Unverified Allergy, Unknown, Nausea/Vomiting, 01/27/17) fluticasone (Unverified Allergy, Unknown, 01/27/17) THROAT SWELLING fluticasone furoate (Unverified Allergy, Unknown, 01/27/17) THROAT SWELLING salmeterol (Unverified Allergy, Unknown, 01/27/17) THROAT SWELLING azithromycin (Verified Adverse Reaction, Intermediate, DIARRHEA, 01/27/17) Past Medical History CAD status post previous DE with prior CABG and cardiac stent implants 11 COPD with ongoing tobacco abuse Hypertension Dyslipidemia Depression Chronic systolic heart failure Past Surgical History LAP-BAND CABG 2005 Bladder repair Appendectomy Hysterectomy Right hand Cardiac stent 11 Benign breast lumpectomy Reported Medications Alprazolam 0.5 Mg Tab 0.5 Mg PO Q8H PRN Hydrocodone-Acetaminophen 5-325 mg Tab 1 Tab PO Q6H PRN Lasix (Furosemide) 40 Mg Tab 40 Mg PO BID Protonix (Pantoprazole Sodium) 40 Mg Tab 40 Mg PO DAILY Acidophilus/l-Sporogenes (Lactobacillus Acidophilus) 35 Million Cell-25 Million Cell Tab 1 Tab PO Q12HR Konsyl (Psyllium Hydrophilic Mucilloid) 6 Gram Pow 1 Pkt PO DAILY [Budeson-Formot 160-4.5 Mg Inh] 60 PUFF Aero 2 Puff INH Q12HR Potassium Chloride Microencaps 20 Meq Tab 20 Meq PO TID Isosorbide Dinitrate 20 Mg Tab 20 Mg PO TID Hydralazine HCl 10 Mg Tablet 10 Mg PO Q8HR Ferosul (Ferrous Sulfate) 325 Mg (65 Mg Iron) Tablet 325 Mg PO BID Spiriva Handihaler (Tiotropium Inh) 18 Mcg Cap 18 Mcg INH DAILY 1 capsule = 18 mcg Nebulizer 1 Mis Mis Ea .ROUTE DIRECTED Oxygen tank (Oxygen) 1 Ea Tank Liter BAKARI.CANULA CONTINUOUS Oxygen Concentrator Portable Gaseous 2 L/min via Nasal Cannula Continuous For 99 months npi [id number] Adult Aspirin EC Low Strength (Aspirin) 81 Mg Tabec 81 Mg PO DAILY Reported Vitamin C (Ascorbic Acid) 500 Mg Capsule 500 Mg PO BID Prednisone 10 Mg Tab 10 Mg PO DAILY Metoprolol Tartrate 75 Mg Tab 50 Mg PO BID Prozac (Fluoxetine HCl) 20 Mg Cap 20 Mg PO BID Ventolin Hfa 18 GM Inh (Albuterol Sulfate) 90 Mcg/Act Aer 2 Puff INH Q4-6H PRN Atorvastatin (Atorvastatin Calcium) 80 Mg Tab 80 Mg PO HS Amlodipine (Amlodipine Besylate) 5 Mg Tab 5 Mg PO BID Clopidogrel (Clopidogrel Bisulfate) 75 Mg Tab 75 Mg PO DAILY Active Ordered Medications Reviewed in EMR Family History Mother COPD age 78 Father sister with coronary artery disease Social History Quit tobacco months ago. 1/2 pack per day since age 15. No alcohol density no illicit drug use. Physical Exam Vital Signs Vital Signs Date Time Temp Pulse Resp B/P (MAP) Pulse Ox O2 Delivery O2 Flow Rate FiO2 01/27/17 14:36 65 24 108/53 (71) 95 Nasal Cannula 4.00 01/27/17 14:28 97.8 64 22 108/53 95 01/27/17 14:13 97.8 61 91/53 96 01/27/17 12:08 22 93 Nasal Cannula 4.00 01/27/17 12:00 93 Nasal Cannula 4.00 01/27/17 11:45 93 Nasal Cannula 4.00 01/27/17 11:27 98.4 70 18 107/52 (70) 93 Nasal Cannula 4.00 01/27/17 11:27 18 01/27/17 11:13 98.4 68 18 107/52 (70) 92 Physical Exam GENERAL: 71-year-old female, currently orotracheally intubated with blood from ET tube SKIN: Cool and dry HEAD: Atraumatic. Normocephalic. EYES: Pupils equal and round 3 mm bilaterally. No scleral icterus. No injection or drainage. ENT: No nasal bleeding or discharge. Mucous membranes pink and moist. NECK: Trachea midline. No JVD. CARDIOVASCULAR: Regular rate and rhythm. S1, S2. No S4. RESPIRATORY: No accessory muscle use. Clear to auscultation. Breath sounds equal bilaterally. GASTROINTESTINAL: Abdomen soft, non-tender, nondistended. Hepatic and splenic margins not palpable. MUSCULOSKELETAL: Extremities with mottling and cyanosis.. No obvious deformities. NEUROLOGICAL: Currently not Arousable on the ventilator. No gag. Not withdrawing to pain Laboratory Laboratory Tests Test 01/27/17 11:25 01/27/17 11:45 01/27/17 13:54 White Blood Count 11.7 Red Blood Count 2.47 Hemoglobin 7.0 Hematocrit 21.9 Mean Corpuscular Volume 88.6 Mean Corpuscular Hemoglobin 28.4 Mean Corpuscular Hemoglobin Concent 32.0 Red Cell Distribution Width 17.5 Platelet Count 245 Mean Platelet Volume 9.6 Neutrophils (%) (Auto) 89.9 Lymphocytes (%) (Auto) 4.6 Monocytes (%) (Auto) 5.3 Eosinophils (%) (Auto) 0.0 Basophils (%) (Auto) 0.2 Neutrophils # (Auto) 10.5 Lymphocytes # (Auto) 0.5 Monocytes # (Auto) 0.6 Eosinophils # (Auto) 0.0 Basophils # (Auto) 0.0 CBC Comment DIFF FINAL Differential Comment Prothrombin Time 12.0 Prothromb Time International Ratio 1.2 Activated Partial Thromboplast Time 23.8 Blood Urea Nitrogen 31 Creatinine 1.59 Random Glucose 112 Total Protein 6.2 Albumin 2.9 Calcium Level 8.6 Magnesium Level 2.0 Alkaline Phosphatase 80 Aspartate Amino Transf (AST/SGOT) 30 Alanine Aminotransferase (ALT/SGPT) 38 Total Bilirubin 0.7 Sodium Level 134 Potassium Level 4.3 Chloride Level 98 Carbon Dioxide Level 27.7 Anion Gap 8 Estimat Glomerular Filtration Rate 32 Total Creatine Kinase 78 Troponin I 1.94 B-Type Natriuretic Peptide GREATER THAN 5000 Lipase 38 Lactic Acid Level 2.2 Date/Time Source Procedure Growth Status 01/27/17 11:45 Blood Peripheral Aerobic Blood Culture Pending Received 01/27/17 11:45 Blood Peripheral Anaerobic Blood Culture Pending Received Result Diagram: 01/27/17 1125 01/27/17 1125 Imaging Last Impressions Chest X-Ray 01/27/17 1120 Signed Impressions: Service Date/Time: Friday, January 27, 2017 11:48 - CONCLUSION: 1. Bilateral pleural effusions and bibasilar densities greater on the right. 2. Cardiomegaly with interstitial edema David Rose MD Abdomen/Pelvis CT 01/27/17 0000 Signed Impressions: Service Date/Time: Friday, January 27, 2017 12:52 - CONCLUSION: 1. Progressive colitis involving the cecum and proximal ascending colon without evidence for bowel infarction , perforation or abscess. There is however trace amount of free fluid in the pelvis which may be reactive. Differential considerations include infectious/inflammatory versus ischemic colitis given the diffuse vascular atherosclerotic calcifications. 2. Minimally enlarged small bilateral pleural effusions. 3. Sigmoid diverticulosis without definitive evidence for diverticulitis although evaluation is limited by fluid in the pelvis. 4. Stable additional ancillary findings, as above. MD Eugenio Shelby VTE Risk Assessment Caprinmary VTE Risk Assessment: Mod/High Risk (score >= 2) VTE Pharm Contraindication: Active bleeding Caprini Risk Assessment Model Point Value = 1 Point Value = 2 Point Value = 3 Point Value = 5 Age 41-60 Minor surgery BMI > 25 kg/m2 Swollen legs Varicose veins or History of unexplained or recurrent spontaneous Oral contraceptives or hormone replacement Sepsis (< 1 month) Serious lung disease, including pneumonia (< 1 month) Abnormal pulmonary function Acute myocardial infarction Congestive heart failure (< 1 month) History of inflammatory bowel disease Medical patient at bed rest Age 61-74 Arthroscopic surgery Major open surgery (> 45 min) Laparoscopic surgery (> 45 min) Malignancy Confined to bed (> 72 hours) Immobilizing plaster cast Central venous access Age >= 75 History of VTE Family history of VTE Factor V Leiden Prothrombin [id number] Lupus anticoagulant Anticardiolipin antibodies Elevated serum homocysteine Heparin-induced thrombocytopenia Other congenital or acquired thrombophilia Stroke (< 1 month) Elective arthroplasty Hip, pelvis, or leg fracture Acute spinal cord injury (< 1 month) Prophylaxis Regimen Total Risk Factor Score Risk Level Prophylaxis Regimen 0-1 Low Early ambulation 2 Moderate Order ONE of the following: *Sequential Compression Device (SCD) *Heparin 5000 units SQ BID 3-4 Higher Order ONE of the following medications: *Heparin 5000 units SQ TID *Enoxaparin/Lovenox 40 mg SQ daily (WT < 150 kg, CrCl > 30 mL/min) *Enoxaparin/Lovenox 30 mg SQ daily (WT < 150 kg, CrCl > 10-29 mL/min) *Enoxaparin/Lovenox 30 mg SQ BID (WT < 150 kg, CrCl > 30 mL/min) AND/OR *Sequential Compression Device (SCD) 5 or more Highest Order ONE of the following medications: *Heparin 5000 units SQ TID (Preferred with Epidurals) *Enoxaparin/Lovenox 40 mg SQ daily (WT < 150 kg, CrCl > 30 mL/min) *Enoxaparin/Lovenox 30 mg SQ daily (WT < 150 kg, CrCl > 10-29 mL/min) *Enoxaparin/Lovenox 30 mg SQ BID (WT < 150 kg, CrCl > 30 mL/min) AND *Sequential Compression Device (SCD) Assessment and Plan Assessment and Plan Neuro/Psych: Anxiety disorder NOS Depression Holding all home medications at the present time. Per measures CV: Cardiac pulmonary arrest likely secondary to retain CO2/anemia Chronic systolic heart failure Non-STEMI Elevated troponin History of hypertension History of dyslipidemia Patient received CPR with epinephrine, bicarbonate and atropine provided for 10 minutes. ROSC after 10 minutes. During the code, healthcare proxy requested DNR status. Dr. Muniz, cardiology was consulted by the ED Resp: Acute hypoxic hypercapnic respiratory failure COPD History of tobaccoism PRVC ventilation post intubation by ED physician Chest x-ray not performed due to DNR status, patient prior to arriving in room 517 GI: GI bleed Generalized colitis - suppurative History of C. difficile Gastritis Esophagitis Diverticulosis Gastroesophageal reflux disease Received 1 unit PRBCs in ED. Received pantoprazole IV 1. : Sue catheter was placed for accurate I's and O's in a critically ill patient Endo: Sliding-scale insulin with Accu-Cheks to maintain euglycemia Renal: Acute kidney injury in the setting of chronic kidney disease Heme: Acute blood loss anemia Hemoglobin 7 on admission. Received 20 PRBCs. Coags within normal limits. ID: History of C. difficile Monitor for infection FEN: Replace electrolytes as clinically indicated MSK: PT evaluate and treat Access - Utilize peripheral IV. Central line if indicated Prophylaxis - Received pantoprazole ED. - DVT - SCD/no pharmacological prophylaxis in light of acute bleeding Critical care time 35 minutes Code Status DNR verified with Nick Whalen Discussed Condition With Dr. Dy. Nick Whalen. Care plan discussed and all questions answered Problem Qualifiers (1) GI bleed: Qualified Codes: K92.1 - Melena (2) Acute renal failure superimposed on stage 2 chronic kidney disease: Qualified Codes: N17.9 - Acute kidney failure, unspecified; N18.2 - Chronic kidney disease, stage 2 (mild) (3) Acute respiratory failure: Qualified Codes: J96.01 - Acute respiratory failure with hypoxia; J96.02 - Acute respiratory failure with hypercapnia (4) CAD (coronary artery disease): Qualified Codes: I25.110 - Atherosclerotic heart disease of [place] coronary artery with unstable angina pectoris Russ Varghese MD Jan 27, 2017 15:57
--- NOTE | 2017-01-27 16:33 | HHI.DS ---
Summary Note Date of : Jan 27, 2017 Time Of : 153 Admission Date Jan 27, 2017 at 14:08 Admitting Diagnosis CHF exacerbation; elevated troponin; anemia from GI bleed; colitis Diagnosis at Time of : (1) Cardiopulmonary arrest ICD Code: I46.9 - Cardiac arrest, cause unspecified Diagnosis: Principal (2) GI bleed ICD Code: K92.2 - Gastrointestinal hemorrhage, unspecified Diagnosis: Principal (3) Acute renal failure superimposed on stage 2 chronic kidney disease ICD Code: N17.9 - Acute kidney failure, unspecified; N18.2 - Chronic kidney disease, stage 2 (mild) Diagnosis: Principal (4) Acute respiratory failure ICD Code: J96.00 - Acute respiratory failure, unspecified whether with hypoxia or hypercapnia Diagnosis: Principal (5) CAD (coronary artery disease) ICD Code: I25.10 - CAD (coronary artery disease) Diagnosis: Principal (6) Elevated troponin ICD Code: R74.8 - Abnormal levels of other serum enzymes Diagnosis: Principal Procedures Intubation CPR Brief History This is a 71-year-old female. Date of admission 01/27/2017. Her healthcare proxy Nick Shleley. Patient presents to [facility] with acute onset of abdominal pain/generalized, melanotic stools and shortness of breath. She has no history of lower GI bleed with an EGD and colonoscopy 01/10/2060 revealed esophagitis, gastritis, colitis, diverticulosis. Pathology noted of supportive gastritis and colitis. History of C. difficile 027 positive November 2016, CHF ejection fraction 40% and COPD. She also has a history of a living cardiac stents and average 5. Also history of pleural effusion status post thoracentesis 800 cc last admission.. Per document, she was admitted with chief complaint of chills, increasing shortness of breath since this morning. Her hemoglobin was noted be 7 at extended care facility she transferred here for further evaluation treatment. The patient reports generalized weakness. She states she's had increased shortness of breath since this morning. No chest pain. She reports 6 out of 10 diffuse abdominal pain that will occasionally radiate to the back. She states the pain is sharp and aching. No exacerbating or alleviating factors. She states she has not had this pain before. She does report history of C. difficile. She reports 2 episodes of diarrhea today and one episode of vomiting today. She states she has been on antibiotics recently. Moderate severity. She does report history of LAP-BAND surgery to the abdomen, no other abdominal surgeries. CT abdomen/pelvis revealed diffuse colitis with no perforation. Patient received intravenous pantoprazole and received when he PRBCs and EGD followed by furosemide. In the ED, patient became bradycardic and received atropine however came bradycardic and CPR was initiated. Patient received 10 minutes of chest compressions, epinephrine, bicarbonate until resolution of spontaneous circulation. During the code, I spoke to healthcare proxy Alejandra. At that time we made the patient a DNR. Patient was brought to the floor where she passed CBC/BMP: 01/27/17 1125 01/27/17 1125 Significant Findings Laboratory Tests Test 01/27/17 11:25 01/27/17 11:45 01/27/17 13:54 White Blood Count 11.7 TH/MM3 (4.0-11.0) Red Blood Count 2.47 MIL/MM3 (4.00-5.30) Hemoglobin 7.0 GM/DL (11.6-15.3) Hematocrit 21.9 % (35.0-46.0) Red Cell Distribution Width 17.5 % (11.6-17.2) Neutrophils (%) (Auto) 89.9 % (16.0-70.0) Lymphocytes (%) (Auto) 4.6 % (9.0-44.0) Neutrophils # (Auto) 10.5 TH/MM3 (1.8-7.7) Lymphocytes # (Auto) 0.5 TH/MM3 (1.0-4.8) Prothrombin Time 12.0 SEC (9.8-11.6) Activated Partial Thromboplast Time 23.8 SEC (24.3-30.1) Blood Urea Nitrogen 31 MG/DL (7-18) Creatinine 1.59 MG/DL (0.50-1.00) Random Glucose 112 MG/DL (74-106) Total Protein 6.2 GM/DL (6.4-8.2) Albumin 2.9 GM/DL (3.4-5.0) Sodium Level 134 MEQ/L (136-145) Estimat Glomerular Filtration Rate 32 ML/MIN (>89) Troponin I 1.94 NG/ML (0.02-0.05) B-Type Natriuretic Peptide GREATER THAN 5000 PG/ML Lipase 38 U/L (73-393) Lactic Acid Level 2.2 mmol/L (0.4-2.0) Stool C. difficile Toxin (PCR) POSITIVE (NEGATIVE) Stl C. difficile Toxin Epiderm 027 PRESUMPTIVE POSITIVE Imaging Last Impressions Chest X-Ray 01/27/17 1120 Signed Impressions: Service Date/Time: Friday, January 27, 2017 11:48 - CONCLUSION: 1. Bilateral pleural effusions and bibasilar densities greater on the right. 2. Cardiomegaly with interstitial edema David Rose MD Abdomen/Pelvis CT 01/27/17 0000 Signed Impressions: Service Date/Time: Friday, January 27, 2017 12:52 - CONCLUSION: 1. Progressive colitis involving the cecum and proximal ascending colon without evidence for bowel infarction , perforation or abscess. There is however trace amount of free fluid in the pelvis which may be reactive. Differential considerations include infectious/inflammatory versus ischemic colitis given the diffuse vascular atherosclerotic calcifications. 2. Minimally enlarged small bilateral pleural effusions. 3. Sigmoid diverticulosis without definitive evidence for diverticulitis although evaluation is limited by fluid in the pelvis. 4. Stable additional ancillary findings, as above. Prasad Brown MD Hospital Course Neuro/Psych: Anxiety disorder NOS Depression Holding all home medications at the present time. Per measures CV: Cardiac pulmonary arrest likely secondary to retain CO2/anemia Chronic systolic heart failure Non-STEMI Elevated troponin History of hypertension History of dyslipidemia Patient received CPR with epinephrine, bicarbonate and atropine provided for 10 minutes. ROSC after 10 minutes. During the code, healthcare proxy requested DNR status. Dr. Muniz, cardiology was consulted by the ED Resp: Acute hypoxic hypercapnic respiratory failure COPD History of tobaccoism PRVC ventilation post intubation by ED physician Chest x-ray not performed due to DNR status, patient prior to arriving in room 517 GI: GI bleed Generalized colitis - suppurative History of C. difficile Gastritis Esophagitis Diverticulosis Gastroesophageal reflux disease Received 1 unit PRBCs in ED. Received pantoprazole IV 1. : Sue catheter was placed for accurate I's and O's in a critically ill patient Endo: Sliding-scale insulin with Accu-Cheks to maintain euglycemia Renal: Acute kidney injury in the setting of chronic kidney disease Heme: Acute blood loss anemia Hemoglobin 7 on admission. Received 20 PRBCs. Coags within normal limits. ID: History of C. difficile Monitor for infection FEN: Replace electrolytes as clinically indicated MSK: PT evaluate and treat Access - Utilize peripheral IV. Central line if indicated Prophylaxis - Received pantoprazole ED. - DVT - SCD/no pharmacological prophylaxis in light of acute bleeding Critical care time 35 minutes Russ Varghese MD Jan 27, 2017 16:33
--- NOTE | 2017-01-27 16:33 | DEATH SUM ---
Pronouncement Date Pronounced : Jan 27, 2017 Time Of : 1537 Pronouncement Called to pronounce of patient. Identified patient as Maryam oGrdon with wrist band MR# [id number]. Patient with no cardiac activity in 2 separate leads and no palpable/auscible cardiac activity. Patient with no spontaneous respirations, no corneal reflex or response to painful stimuli. Pupils fixed and dilated. Preliminary Cause of : Cardiac arrest Russ Varghese MD Jan 27, 2017 16:33
[2017-01-27] MEDS ORDERED: CHLORHEXIDINE 0.12% (ORAL KIT) 15 ML CUP MT SCH (20:00)
[2017-01-27] MEDS ORDERED: SODIUM CHLORIDE 0.9% FLUSH 10 ML FLUSH IV FLUSH SCH (21:00)
[2017-01-28] MEDS ORDERED: CHLORHEXIDINE GLUCONATE 2 % 1 PACK (2 CLOTHS) TOP SCH (04:00)
--- NOTE | 2017-01-28 22:53 | EKG ---
Date Performed: 01/27/2017 Time Performed: 11:39:32 PTAGE: 71 years EKG: Sinus rhythm LEFT VENTRICULAR HYPERTROPHY AND ST-T CHANGE INFERIOR MYOCARDIAL INFARCTION ABNORMAL ECG PREVIOUS TRACING : 01/02/2017 04.48 Compared to prior tracing no significant change DOCTOR: Blayne Cortez Interpretating Date/Time 01/28/2017 22:53:18
== END 2017-01-27 15:37 | disposition expired | DRG 208 ==
LOC: NEPC 10:51 → NEDA 14:08 → HIMN 15:35
PROVIDERS: ADMIT Internal Medicine Critical Care Medicine; ATTEND Internal Medicine Critical Care Medicine
PROC: 5A1935Z Respiratory Ventilation, Less than 24 Consecutive Hours (ICD-10-PCS; principal; 2017-01-27)
PROC: 5A12012 Performance of Cardiac Output, Single, Manual (ICD-10-PCS; 2017-01-27)
PROC: 0BH17EZ Insertion of Endotracheal Airway into Trachea, Via Natural or Artificial Opening (ICD-10-PCS; 2017-01-27)
PROC: 30233N1 Transfusion of Nonautologous Red Blood Cells into Peripheral Vein, Percutaneous Approach (ICD-10-PCS; 2017-01-27)
DX: J96.01 Acute respiratory failure with hypoxia (principal); I21.4 Non-ST elevation (NSTEMI) myocardial infarction; N17.9 Acute kidney failure, unspecified; I95.9 Hypotension, unspecified; I13.0 Hypertensive heart and chronic kidney disease with heart failure and stage 1 through stage 4 chronic kidney disease, or unspecified chronic kidney disease; K29.71 Gastritis, unspecified, with bleeding; I50.22 Chronic systolic (congestive) heart failure; D62 Acute posthemorrhagic anemia; Z99.81 Dependence on supplemental oxygen; I25.110 Atherosclerotic heart disease of native coronary artery with unstable angina pectoris; J96.02 Acute respiratory failure with hypercapnia; J44.9 Chronic obstructive pulmonary disease, unspecified; K21.0 Gastro-esophageal reflux disease with esophagitis; N18.2 Chronic kidney disease, stage 2 (mild); I25.2 Old myocardial infarction; K57.30 Diverticulosis of large intestine without perforation or abscess without bleeding; K52.9 Noninfective gastroenteritis and colitis, unspecified; E78.5 Hyperlipidemia, unspecified; H91.93 Unspecified hearing loss, bilateral; M19.90 Unspecified osteoarthritis, unspecified site; F32.9 Major depressive disorder, single episode, unspecified; F41.9 Anxiety disorder, unspecified; Z66 Do not resuscitate; Z72.0 Tobacco use; Z82.49 Family history of ischemic heart disease and other diseases of the circulatory system; Z88.1 Allergy status to other antibiotic agents; Z88.5 Allergy status to narcotic agent; Z95.1 Presence of aortocoronary bypass graft; Z95.5 Presence of coronary angioplasty implant and graft
CPT/HCPCS: 31500; 36430; 71010; 74176; 80053; 82550; 83605; 83690; 83735; 83880; 84484; 85025; 85610; 85730; 86850; 86900; 86901; 86920; 87040; 87493; 92950; 93005; 94640; 94664; 96374; C9113; J0330; J0461; J0744; J1940; J2405; J3010; J7050; P9016